=== PATIENT | female | born 1950 | race Two or more races ===

== ENCOUNTER 2020-05-19 12:49 | Outpatient (REF) | payer OTHER, SELFPAY | END 2020-05-19 12:50 | disposition home or self-care (01) | LOC: HO.LAB 12:49 | PROVIDERS: PCP Internal Medicine; Visit Provider Internal Medicine | DX: Z20.822 Contact with and (suspected) exposure to COVID-19 (principal) | CPT/HCPCS: 36415; C9803; U0003 ==

== ENCOUNTER 2020-06-09 11:07 | Outpatient (REF) | payer OTHER, SELFPAY | END 2020-06-09 11:08 | disposition home or self-care (01) | LOC: HO.LAB 11:07 | PROVIDERS: Visit Provider Internal Medicine | DX: Z20.822 Contact with and (suspected) exposure to COVID-19 (principal) | CPT/HCPCS: 36415; C9803; U0003; U0005 ==

== ENCOUNTER → 2020-06-10 08:21 | Outpatient (BNVA) | payer OTHER, SELFPAY | PROVIDERS: PCP Internal Medicine; Visit Provider Internal Medicine Endocrinology, Diabetes & Metabolism | DX: Z76.89 Persons encountering health services in other specified circumstances (principal) | CPT/HCPCS: Q3014 ==

== ENCOUNTER 2020-06-12 09:35 | Outpatient (REF) | payer OTHER, SELFPAY ==
[2020-06-12 10:27] LABS: Estimated Average Glucose 137 mg/dL; Hemoglobin A1c % 6.4 %
[2020-06-12 10:57] LABS: Alanine Aminotransferase 133 U/L (0-31); Alkaline Phosphatase 90 U/L (39-117); Anion Gap 15 (12-20); Aspartate Amino Transferase 95 U/L (5-31); Bilirubin Total 0.4 mg/dL (0.0-1.0); Blood Urea Nitrogen 13 mg/dL (9-16); Calcium 9.3 mg/dL (8.4-10.2); Carbon Dioxide 29 mmol/L (22-29); Chloride 101 mmol/L (96-108); Cholesterol 149 mg/dL; Estimated Glomerular Filt Rate > 60; Glucose Fasting 101 mg/dL (60-99); HDL Cholesterol 49 mg/dL; LDL Cholesterol Calculated 80 mg/dl; Potassium 4.5 mmol/L (3.3-5.1); Sodium 140 mmol/L (135-145); Total Protein 7.8 g/dL (6.5-8.0); Triglycerides 103 mg/dL
[2020-06-12 10:59] LABS: Creatinine Urine 112.18 mg/dL
[2020-06-12 11:05] LABS: Vitamin D 25-OH Total 47.7 ng/mL (>30)
[2020-06-12 11:31] LABS: Vitamin B12 753 pg/mL (200-900)
[2020-06-13 05:43] LABS: LDL Cholesterol Direct 78 mg/dL (<100)
[2020-06-18 05:32] LABS: Aldolase 8.4 U/L (<=8.1)
== END 2020-06-12 09:36 | disposition home or self-care (01) ==
LOC: HO.LAB 09:35
PROVIDERS: PCP Internal Medicine; Visit Provider Internal Medicine Endocrinology, Diabetes & Metabolism
DX: R74.8 Abnormal levels of other serum enzymes (principal); E11.9 Type 2 diabetes mellitus without complications; M85.80 Other specified disorders of bone density and structure, unspecified site
CPT/HCPCS: 36415; 80053; 80061; 82043; 82085; 82306; 82550; 82607; 83036; 83721

== ENCOUNTER → 2020-06-20 12:43 | Outpatient (BNVA) | payer MEDICARE, SELFPAY | PROVIDERS: PCP Internal Medicine; Visit Provider Nurse Practitioner | DX: Z76.89 Persons encountering health services in other specified circumstances (principal) | CPT/HCPCS: Q3014 ==

== ENCOUNTER 2020-07-02 08:41 | Outpatient (REF) | payer MEDICARE, SELFPAY ==
--- NOTE | ~2020-07-02 | US_ITS ---
EXAMINATION: US ABDOMEN COMPLETE CLINICAL INFORMATION: Abnormal liver function tests. COMPARISON: Previous CT of the abdomen and pelvis August 2018 and abdominal ultrasound February 2009 TECHNIQUE: Real-time imaging of the abdominal viscera. FINDINGS: PANCREAS: Normal. ABDOMINAL AORTA: The proximal, mid, and distal segments are normal in caliber. INFERIOR VENA CAVA: Visualized portions are normal. LIVER: Liver echotexture is increased. The liver is normal in size. The liver contour is normal. No focal hepatic lesion. There is no intrahepatic biliary duct dilatation seen. GALLBLADDER: Upper normal in size. No gallstones. Normal gallbladder wall. COMMON BILE DUCT: Normal in caliber measuring 0.6 cm in diameter. RIGHT KIDNEY: Normal. No hydronephrosis. No renal calculi or focal parenchymal lesions. The kidney measures 12.4 cm in maximum dimension. LEFT KIDNEY: Normal. No hydronephrosis. No renal calculi or focal parenchymal lesions. The kidney measures 11.8 cm in maximum dimension. SPLEEN: Normal. The spleen measures 9.1 cm in maximum dimension. FREE FLUID: None. US/US abdomen complete IMPRESSION: Echogenic liver probably representing fatty infiltration.
== END 2020-07-02 08:42 | disposition home or self-care (01) ==
LOC: HO.US 08:41
PROVIDERS: Visit Provider Nurse Practitioner
DX: R74.8 Abnormal levels of other serum enzymes (principal)
CPT/HCPCS: 76700

== ENCOUNTER 2020-07-08 15:56 | Outpatient (REF) | payer MEDICARE, SELFPAY ==
[2020-07-08 17:05] LABS: MANUAL DIFF FLAG NO
[2020-07-08 17:15] LABS: Basophils Percent Auto 0.4 % (0-2); Eosinophils Absolute Auto 0.4 X10*3/uL (0.0-0.4); Hematocrit 40.2 % (37-47); Hemoglobin 12.5 g/dl (12.0-16.0); Imm Gran Abs Auto 0.02 X10*3/uL (0.00-0.03); Imm Gran Pct Auto 0.3 % (0.0-0.4); Lymphocytes Absolute Auto 3.3 X10*3/uL (1.2-4.9); Mean Corpuscular HGB Conc 31.1 g/dl (31.0-35.0); Mean Corpuscular Hemoglobin 27.6 pg (27.0-33.0); Mean Corpuscular Volume 88.7 fL (80-98); Mean Platelet Volume 11.2 fL (9.4-12.3); Monocytes Absolute Auto 0.8 X10*3/uL (0.1-1.2); Monocytes Percent Auto 10.4 % (2-11); Neutrophils Absolute Auto 3.3 X10*3/uL (2.0-8.3); Neutrophils Percent Auto 41.9 % (45-73); Platelet Count 261 X10*3/uL (160-400); Red Blood Count 4.53 X10*6/uL (4.20-5.50); Red Cell Distribution Width 15.9 % (11.0-16.0); White Blood Count 7.8 X10*3/uL (4.8-10.8)
[2020-07-08 17:57] LABS: Alanine Aminotransferase 79 U/L (0-31); Albumin Level 4.3 g/dL (3.5-5.0); Alkaline Phosphatase 118 U/L (39-117); Anion Gap 14 (12-20); Aspartate Amino Transferase 60 U/L (5-31); Bilirubin Total 0.4 mg/dL (0.0-1.0); Blood Urea Nitrogen 14 mg/dL (9-16); C Reactive Protein 0.36 mg/dL (< or = 0.50); Calcium 9.5 mg/dL (8.4-10.2); Carbon Dioxide 28 mmol/L (22-29); Chloride 102 mmol/L (96-108); Estimated Glomerular Filt Rate > 60; Glucose Random 91 mg/dL (60-115); Lactate Dehydrogenase 247 U/L (122-220); Potassium 3.8 mmol/L (3.3-5.1); Sodium 140 mmol/L (135-145); Total Protein 8.1 g/dL (6.5-8.0)
[2020-07-08 18:17] LABS: Erythrocyte Sedimentation Rate 22 MM/HR (0-20)
[2020-07-19 21:51] LABS: EJ Autoantibodies NOT DETECTED (NOT DETECTED); JO-1 Antibody <1.0 NEG AI (<1.0 NEG); MI 2 Autoantibodies NOT DETECTED (NOT DETECTED); OJ Autoantibodies NOT DETECTED (NOT DETECTED); PL 12 Autoantibodies NOT DETECTED (NOT DETECTED); PL 7 Autoantibodies NOT DETECTED (NOT DETECTED)
== END 2020-07-08 15:57 | disposition home or self-care (01) ==
LOC: HO.LAB 15:56
PROVIDERS: PCP Internal Medicine; Visit Provider Student in an Organized Health Care Education/Training Program
DX: R74.8 Abnormal levels of other serum enzymes (principal)
CPT/HCPCS: 36415; 80053; 82550; 83615; 85025; 85652; 86140; 99212

== ENCOUNTER → 2020-07-17 14:10 | Outpatient (BNVA) | payer MEDICARE, SELFPAY | PROVIDERS: PCP Internal Medicine; Visit Provider Student in an Organized Health Care Education/Training Program | DX: R74.9 Abnormal serum enzyme level, unspecified (principal); Z79.899 Other long term (current) drug therapy | CPT/HCPCS: 99212 ==

== ENCOUNTER → 2020-07-22 13:42 | Outpatient (BNVA) | payer MEDICARE, SELFPAY | PROVIDERS: PCP Internal Medicine; Visit Provider Nurse Practitioner | DX: R10.13 Epigastric pain (principal); R14.0 Abdominal distension (gaseous); K58.0 Irritable bowel syndrome with diarrhea; K21.9 Gastro-esophageal reflux disease without esophagitis; R74.8 Abnormal levels of other serum enzymes | CPT/HCPCS: Q3014 ==

== ENCOUNTER → 2020-07-31 13:57 | Outpatient (BNVA) | payer MEDICARE, SELFPAY | PROVIDERS: PCP Internal Medicine; Visit Provider Surgery | DX: M62.81 Muscle weakness (generalized) (principal) | CPT/HCPCS: 99202 ==

== ENCOUNTER 2020-08-08 07:01 | Day surgery (SDC) | payer MEDICARE, SELFPAY ==
--- NOTE | 2020-08-07 09:51 | HO.ANESPROP2 ---
Documented by User: Maday Hernandezney 08/07/20 09:53 HPI - Anesthesia Eval Consult details Narrative: 70yo F for Left Thigh Muscle Biopsy prn Opioids PMFSH Active Problems Active Problems: All Active Problems (Updated 07/31/20 @ 14:28 by Akshat Arias MD) Muscle weakness (Acute) Elevated aldolase level (Acute) Abdominal bloating (Acute) Epigastric pain (Acute) Irritable bowel syndrome with diarrhea (Acute) Abdominal bloating (Acute) GERD (gastroesophageal reflux disease) (Acute) Abnormal liver enzymes (Acute) Dyslipidemia (Acute) Elevated CPK (Acute) Osteopenia (Acute) Diabetic 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 associated with type 2 diabetes mellitus (Acute) 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 (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) Diabetes type 2, controlled (Acute) Lab test positive for detection of COVID-19 virus (Acute) Urge urinary incontinence (Acute) Moderate asthma (Acute) Vertigo (Acute) Polyarthralgia (Acute) Depression with anxiety (Acute) Essential hypertension (Acute) Diabetes mellitus (Acute) Past Medical History Medical History Abnormal liver enzymes Depression with anxiety Diabetes mellitus Diabetes type 2, controlled Diabetic 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 associated with type 2 diabetes mellitus Dyslipidemia Elevated CPK Essential hypertension Lab test positive for detection of COVID-19 virus longterm (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 Moderate asthma Muscle weakness Osteopenia Polyarthralgia Urge urinary incontinence Vertigo Family History Family History Father Hypertension Mother Cancer Sister Breast cancer Surgical History Surgical History History of esophagogastroduodenoscopy (EGD) History of tubal ligation Hx of colonoscopy S/P SHERRY-BSO (total abdominal hysterectomy and bilateral salpingo-oophorectomy) Social History Social History Alcohol intake: current Alcohol intake frequency: does not drink Smoking Status: Never smoker Use of substances other than those prescribed or required for medical reasons: No Advance Directives: No Advance Directives Information Provided: Yes Meds Allergies Allergy/AdvReac Type Severity Reaction Status Date / Time No Known Allergies Allergy Verified 08/08/20 07:18 [No Known Allergies*] Home Medications Medication Instructions Recorded Confirmed Last Taken Type acetaminophen 300 mg-codeine 30 mg 1 tab PO Q8H PRN 04/10/20 07/31/20 Unknown History tablet aspirin 81 mg tablet,delayed 81 mg PO DAILY 04/10/20 07/31/20 Unknown History release pregabalin 100 mg capsule 100 mg PO BID 04/10/20 07/31/20 Unknown History venlafaxine 150 mg tablet,extended 150 mg PO DAILY 04/10/20 07/31/20 Unknown History release 24 hr blood sugar diagnostic #10 ea 06/10/20 07/31/20 Unknown History hydroxyzine HCl 10 mg tablet 10 mg PO TID PRN 06/10/20 07/31/20 Unknown History [id number] 1 cap PO TID 07/08/20 07/31/20 Unknown History 24,000-76,000-120,000 unit capsule,delayed rel trazodone 50 mg tablet 25 mg PO BEDTIME PRN 07/08/20 07/31/20 Unknown History Exam Exam Date and Time: August 07, 2020 0951 Pertinent Lab Results Pertinent Lab Results: Laboratory Tests 07/08/20 07/08/20 16:58 16:58 WBC 7.8 Hgb 12.5 Hct 40.2 Plt Count 261 Sodium 140 Potassium 3.8 Chloride 102 Carbon Dioxide 28 BUN 14 Creatinine 0.73 Assessment and Plan Assessment Anesthesia Assessment: Chart Reviewed Documented by User: Shani Lees 08/08/20 07:49 [facility] Past Medical History Medical History Abnormal liver enzymes Depression with anxiety Diabetes mellitus Diabetes type 2, controlled Diabetic 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 associated with type 2 diabetes mellitus Dyslipidemia Elevated CPK Essential hypertension Lab test positive for detection of COVID-19 virus 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 Moderate asthma Muscle weakness Osteopenia Polyarthralgia Urge urinary incontinence Vertigo Family History Family History Father Hypertension Mother Cancer Sister Breast cancer Surgical History Surgical History History of esophagogastroduodenoscopy (EGD) History of tubal ligation Hx of colonoscopy S/P SHERRY-BSO (total abdominal hysterectomy and bilateral salpingo-oophorectomy) Social History Social History Alcohol intake: current Alcohol intake frequency: does not drink Smoking Status: Never smoker Use of substances other than those prescribed or required for medical reasons: No Advance Directives: No Advance Directives Information Provided: Yes Meds Allergies Allergy/AdvReac Type Severity Reaction Status Date / Time No Known Allergies Allergy Verified 08/08/20 07:18 [No Known Allergies*] Home Medications Medication Instructions Recorded Confirmed Last Taken Type acetaminophen 300 mg-codeine 30 mg 1 tab PO Q8H PRN 04/10/20 07/31/20 Unknown History tablet aspirin 81 mg tablet,delayed 81 mg PO DAILY 04/10/20 07/31/20 Unknown History release pregabalin 100 mg capsule 100 mg PO BID 04/10/20 07/31/20 Unknown History venlafaxine 150 mg tablet,extended 150 mg PO DAILY 04/10/20 07/31/20 Unknown History release 24 hr blood sugar diagnostic #10 ea 06/10/20 07/31/20 Unknown History hydroxyzine HCl 10 mg tablet 10 mg PO TID PRN 06/10/20 07/31/20 Unknown History [id number] 1 cap PO TID 07/08/20 07/31/20 Unknown History 24,000-76,000-120,000 unit capsule,delayed rel trazodone 50 mg tablet 25 mg PO BEDTIME PRN 07/08/20 07/31/20 Unknown History Exam Airway Mallampati Class: II TM Dist: >3cm Neck ROM: Full Assessment and Plan Assessment Anesthesia Assessment: Anesthesia Plan Discussed and Chart Reviewed Final Anesthetic Review NPO: Yes ASA Class: III Final Preanesthetic Review: No Changes in Pt Med Stat, Meds/Allgs Chart Reviewed, Consent Obtained/Reviewed and Anes Risks/Benef Reviewed Patient Risk: Intermediate Procedure Risk: Low Assessment/Block/Sedation in SS: Assess/Block/Sedation-SS Anesthetic Plan Anesthetic Plan: MAC: Disposition: Standard PACU
[2020-08-08 07:19] VITALS: BP 137/89; PULSE 80; RESP 16; TEMP 36.2; O2SAT 95; BMI 30.8
[2020-08-08] MEDS: Lactated Ringers 1,000 ML 100 ML IVCONT (07:40)
[2020-08-08 08:14] LABS: Glucose, Whole Blood 99 mg/dL (60-115)
[2020-08-08 08:48] VITALS: BP 137/73; PULSE 76; RESP 16; TEMP 36.9; O2SAT 93
--- NOTE | 2020-08-08 08:50 | PM.OP ---
Brief Operative Note Date of Service: 08/08/20 Pre-op diagnosis: muscle weakness, rule out myositis Post-op diagnosis: same Procedure: biopsy of left quadriceps muscle Surgeon: Akshat Arias MD Anesthesia: MAC Estimated blood loss (mL): 5 Pathology: other (muscle biopsy) Condition: stable Disposition: PACU
--- NOTE | 2020-08-08 08:56 | P.OP_ITS ---
Operative Note Operative Note Date of Service: 08/08/20 Narrative: Preop diagnosis: Progressive muscle weakness Postop diagnosis: Progressive muscle weakness Procedure: Muscle biopsy, left quadriceps muscle Surgeon: Akshat Arias MD The patient is a 70-year-old female female referred by the neurologist because of progressive muscle weakness. A left quadriceps muscle muscle biopsy had been requested. The patient understood the technique of the procedure as well as the risks, benefits, and alternatives. She was brought to the operating room placed in supine position under monitored anesthesia care. The anterior left thigh was prepped and draped in the usual sterile fashion. A surgical time-out was done. The patient received cefazolin 2 g IV preoperatively. I marked the planned line of incision and infiltrated this with lidocaine 1%. I made a transverse incision on the skin using blade 15. This was carried out to the full-thickness skin and subcutaneous fat using electrocautery. The fascia was identified. This was incised with electrocautery. Muscle fibers of the quadriceps were then identified. I isolated a 1.5 cm long group of muscle fibers using a hemostat. I divided this proximally and distall with Metzenbaum scissors. This was then attached to a muscle clamp biopsy. I cauterized the edges of the divided muscle. I closed the fascia with simple interrupted Dexon 2-0 sutures. Irrigation was done. I reapposed the subcutaneous layer with De xon 3-0 interrupted sutures. Skin closure was achieved with Dexon 4-0 subcuticular running stitch. The incision was infiltrated with Marcaine 0.5% for postop anesthesia. Steri-Strips and dressings were applied. The procedure was then completed The patient tolerated the procedure well. There were no complications noted. Initial and final counts of sponges and instruments were correct. Estimated blood loss was about 5 cc. Patient was then awakened and transferred to the recovery room with stable vital signs.
[2020-08-08 09:03] VITALS: BP 137/73; PULSE 76; RESP 16; TEMP 36.9; O2SAT 95
== END 2020-08-08 09:46 | disposition home or self-care (01) ==
PROVIDERS: PCP Internal Medicine; Visit Provider Surgery
PROC: (CPT 20205; principal; 2020-08-08 08:40)
DX: M62.81 Muscle weakness (generalized) (principal); I10 Essential (primary) hypertension; M85.80 Other specified disorders of bone density and structure, unspecified site; J45.909 Unspecified asthma, uncomplicated; E11.42 Type 2 diabetes mellitus with diabetic 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; Z79.4 Long term (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; Z79.51 Long term (current) use of inhaled steroids; Z79.82 Long term (current) use of aspirin; Z79.899 Other long term (current) drug therapy; Z86.16 Personal history of COVID-19
CPT/HCPCS: 20205; 82947; 88300; 88305; 88313; 88319; 88341; 88342; 88348; J0690; J2405; J3010

== ENCOUNTER → 2020-08-20 14:17 | Outpatient (BNVA) | payer MEDICARE, SELFPAY | PROVIDERS: PCP Internal Medicine; Visit Provider Surgery | DX: M62.81 Muscle weakness (generalized) (principal) | CPT/HCPCS: 99212 ==

== ENCOUNTER → 2020-09-03 10:11 | Outpatient (BNVA) | payer MEDICARE, SELFPAY | PROVIDERS: PCP Internal Medicine; Visit Provider Student in an Organized Health Care Education/Training Program | DX: R74.8 Abnormal levels of other serum enzymes (principal); E11.42 Type 2 diabetes mellitus with diabetic 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 | CPT/HCPCS: 99212 ==

== ENCOUNTER → 2020-10-03 07:39 | Outpatient (REF) | payer MEDICARE, SELFPAY ==
--- NOTE | ~2020-10-03 | NM_ITS ---
Myocardial perfusion study Indication: Chest pain to evaluate for myocardial ischemia Technique: The patient was brought in for a Lexiscan perfusion study on 10/03/2020. Patient performed low-level exercise and was injected 0.4 mg of Lexiscan intravenously. Within a minute of injection, 25 mCi of sestamibi was given intravenously. Images were obtained using the SPECT gamma camera interlaced with the gating device. Images were obtained in supine position. Resting perfusion study was performed on 10/07/2020. Patient was administered 25 mCi of sestamibi intravenously at rest. Images were then obtained in supine position. Images obtained with and without CT attenuation. Total DLP 52 mGy-cm. Images were processed with the software and compared side to side in short axis, horizontal long axis and vertical long axis views. Findings: Both stress and rest perfusion imaging was suboptimal due to intense hepatic activity interfering with inferior wall uptake The stress perfusion study showed non attenuated images show minimal thinning of the anterolateral wall of the LV myocardium. Remainder of the LV myocardium is normally perfused. Attenuation corrected images show minimally reduced uptake in the apex of the LV myocardium.. The gated study shows normal LV systolic function with calculated LVEF of 70%. LV cavity is normal size. The gated study shows normal systolic wall thickening and contraction of segments. Resting study shows non attenuated images show mildly reduced uptake in the basal anterolateral and lateral wall of the LV myocardium. Attenuation corrected images show mildly reduced uptake in the septum and moderately reduced uptake in the apex of the LV myocardium.. Gating at rest reveals normal systolic wall motion with ejection fraction at 67%. The findings are consistent with no clear reversible defect, non attenuated images, show normal perfusion in most of the myocardium.. NM/NM marj perf SPECT rest & str Impression: 1. Myocardial perfusion imaging study shows likely normal myocardial perfusion 2. Gated LVEF is 70% 3. Transient ischemic dilatation not present EKG is nondiagnostic for ischemia
--- NOTE | 2020-10-03 08:00 | CA_ITS ---
Acquisition Time: 2020-10-03 07:58:28 Total Exercise Time: 00:02:00 Test Indications: cp, sob Medications: see chart Protocol: LEXISCAN Max HR: 106 BPM 70% of Pred: 151 BPM Max BP: 120/070 mmHG Max Work Load: 1.0 METS Pharmacological stress test with Lexiscan injection, with sitting and kicking her leg, without anginal symptoms, without arrythmia, with normotensive response to injection, with nondiagnostic EKG for ischemia. Nuclear images pending. Test reviewed with Dr Ye. Referred By: Isaías Monroe Overread By: REGINA MAC
== END ==
LOC: HO.CARD 07:39
PROVIDERS: PCP Internal Medicine; Visit Provider Internal Medicine Cardiovascular Disease
DX: R07.89 Other chest pain (principal); R06.02 Shortness of breath
CPT/HCPCS: 78452; 93016; 93017; 93018; A9500; J0280; J2785

== ENCOUNTER 2020-10-04 21:23 | Emergency (ER) | payer MEDICARE, SELFPAY ==
--- NOTE | ~2020-10-04 | XR_ITS ---
EXAMINATION: XR HAND, LEFT CLINICAL INFORMATION: Laceration. COMPARISON: Left hand radiographs dated 07/11/2017. TECHNIQUE: PA, lateral, and oblique views of the left hand. FINDINGS: No acute fracture or dislocation. No significant joint space narrowing or marginal osteophytes. No osseous erosion. No abnormal soft tissue calcification. No radiopaque foreign body. XR/XR hand LT min 3V IMPRESSION: Unremarkable examination.
[2020-10-04 21:27] VITALS: BP 150/84; PULSE 81; RESP 18; TEMP 36.3; O2SAT 96; BMI 30.9
--- NOTE | 2020-10-04 22:40 | ED_ITS ---
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 Patient was cutting chicken sustained a puncture wound to her left hand at the base of the left thumb, patient said just the tip of the knife penetrate the skin but did not go through through. Patient is able to move all 5 fingers, no numbness or tingling. Patient do not remember her last tetanus shot. Related Data Home Medications Medication Instructions Recorded Confirmed aspirin 81 mg tablet,delayed 81 mg PO DAILY 04/10/20 08/11/20 release venlafaxine 150 mg tablet,extended 150 mg PO DAILY 04/10/20 08/11/20 release 24 hr blood sugar diagnostic #10 ea 06/10/20 08/11/20 hydroxyzine HCl 10 mg tablet 10 mg PO TID PRN 06/10/20 08/11/20 [id number]-[id number] 1 cap PO TID 07/08/20 08/11/20 24,000-76,000-120,000 unit capsule,delayed rel trazodone 50 mg tablet 25 mg PO BEDTIME PRN 07/08/20 08/11/20 Previous Rx's Medication Instructions Recorded albuterol sulfate 2.5 mg INHALATION TID 30 Days #270 03/18/20 ml alcohol swabs 1 pad TOPICAL QID #100 ea 03/18/20 hydrocortisone 2.5 % topical cream 1 applic TOPICAL DAILY PRN 30 Days 03/18/20 #20 g oxybutynin chloride 10 mg 10 mg PO DAILY 90 Days #90 tab 04/10/20 tablet,extended release 24 hr fluticasone propionate 220 1 puff PO BID 90 Days #12 g 04/24/20 mcg/actuation HFA aerosol inhaler calcium carbonate 600 mg calcium 600 mg PO BID 30 Days #60 tab 06/04/20 (1,500 mg) tablet dulaglutide 1.5 mg/0.5 mL 1.5 mg SUBCUT QWEEK 30 Days #2.5 ml 06/10/20 subcutaneous pen injector empagliflozin 12.5 mg-metformin 1 tab PO BID 30 Days #60 tab 06/10/20 1,000 mg tablet lancets 28 gauge #100 ea 06/10/20 pen needle, diabetic 32 gauge x #50 ea 06/10/20 Lantus Solostar U-100 Insulin 100 7 unit SUBCUT DAILY 30 Days #3 ml 06/11/20 unit/mL (3 mL) subcutaneous pen NS meclizine 12.5 mg tablet 25 mg PO DAILY PRN #60 tab 06/15/20 dicyclomine 20 mg tablet 20 mg PO TID 30 Days #90 tab 06/20/20 methylcellulose (laxative) 500 mg 1,000 mg PO DAILY 30 Days #60 tab 06/20/20 tablet pantoprazole 40 mg tablet,delayed 40 mg PO DAILY 30 Days #30 tab 06/20/20 release simethicone 180 mg capsule 180 mg PO TID 30 Days #90 cap 06/20/20 sucralfate 1 gram tablet 2 g PO .daily' 30 Days #60 tab 06/20/20 montelukast 10 mg tablet 10 mg PO DAILY #90 tab 07/07/20 amlodipine 5 mg tablet 5 mg PO DAILY #90 tab 08/11/20 blood sugar diagnostic #100 ea 08/11/20 lisinopril 30 mg tablet 30 mg PO DAILY 90 Days #90 tab 08/11/20 tramadol 50 mg tablet 50 mg PO BID PRN 30 Days #60 tab 08/11/20 acetaminophen 650 mg 650 mg PO Q8H PRN #90 tab 08/19/20 tablet,extended release pregabalin 100 mg capsule 100 mg PO BID #60 cap 09/03/20 Allergies Allergy/AdvReac Type Severity Reaction Status Date / Time No Known Allergies Allergy Verified 09/03/20 10:15 [No Known Allergies*] Review of Systems Review of Systems: All other systems are reviewed and are negative Constitutional: Reports as per HPI and Reports no additional constitutional complaints Eyes: Reports as per HPI and Reports no additional eye complaints Reports system reviewed and no additional complaints, except as documented Cardiovascular: Reports as per HPI and Reports no additional cardiovascular complaints Respiratory: Reports as per HPI and Reports no additional respiratory complaints Gastrointestinal: Reports as per HPI and Reports no additional gastrointestinal complaints Genitourinary: Reports no additional female genitourinary complaints Musculoskeletal: Reports no additional musculoskeletal complaints Skin/Breast: Reports system reviewed and no additional complaints, except as docu Psychiatric: Reports no additional psychiatric complaints Endocrine: Reports no additional endocrine complaints Hematologic/Lymphatic: Reports no additional hematologic/lymphatic complaints Allergic/Immunologic: Reports no additional allergic/immunologic complaints Reports system reviewed and no additional complaints, except as documented and Reports Abnormal speech present [facility] Past Medical History Medical History Abnormal liver enzymes Depression with anxiety Diabetes mellitus Diabetes type 2, controlled Diabetic 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 associated with type 2 diabetes mellitus Dyslipidemia Elevated CPK Essential hypertension Lab test positive for detection of COVID-19 virus assisted (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 Moderate asthma Muscle weakness Osteopenia Polyarthralgia Urge urinary incontinence Vertigo Surgical History History of esophagogastroduodenoscopy (EGD) History of tubal ligation Hx of colonoscopy S/P SHERRY-BSO (total abdominal hysterectomy and bilateral salpingo-oophorectomy) Family History Family History Father Hypertension Mother Cancer Sister Breast cancer Social History Social History Household Members: Significant Other Housing: House Alcohol intake: never Advance Directives: No Advance Directives Information Provided: Yes Physical Exam Vital Signs: Vital Signs: Last Vital Signs Temp 97.3 F 10/04/20 21: Pulse 81 10/04/20 21:27 Resp 18 10/04/20 21:27 BP 150/84 H 10/04/20 21: Pulse Ox 96 10/04/20 21:27 Body Mass Index 30.9 Vital signs have been reviewed as appeared to be correct. Blood pressure normal. Heart rate normal. Respiration rate normal. Temperature normal. Oxygen saturation normal. Appearance: Alert. Oriented X3. No acute distress. Head: Normal external exam. Normocephalic. Atraumatic. No Bolton signs noted. No raccoon eyes noted Eyes: PERRLA. EOMI. Conjunctiva and sclera normal. Eyelids normal. ENT: TM's Normal. Pharynx normal. Uvula midline. Moist mucous membranes. No trismus noted. No drooling noted. No muffled voice noted. Neck: Normal inspection. Neck supple. FROM. No adenopathy. Thyroid Normal. No meningeal signs. No neck mass noted. CVS: Normal heart rate and rhythm. Heart sound normal. No murmurs noted. Pulses normal throughout. Respiratory: No respiratory distress. Painless inspiration. Breath sounds normal. No wheezes/rales/rhonchi noted. Chest nontender. No accessory muscle usage noted or decreased air movement noted. Abdomen: Soft and nontender. Bowel sounds normal in all 4 quadrants. No distention noted. No organomegaly noted. No visible injury noted. Back: No CVA tenderness. Full range of motion noted. Skin: Skin warm and dry. Normal skin color. Normal skin turgor. No rashes/lesions/lacerations noted. Extremities: 3 cm laceration at the dorsum surface of left hand at the base of the left thumb. With mild bleeding that was controlled with pressure in the emergency department. Patient is able to do full extension and flexion to all 5 fingers, intact sensation to whole entire hand Neuro: Oriented X 3. No motor deficit. No sensory deficit. Reflexes normal. Course Course Course Narrative: 70-year-old female sustained a left hand laceration. Will give a booster dose of the tetanus shot. Procedures Laceration Laceration 1: Site: hand Side (If applicable): left Size (cm): 3 Description: linear Depth: simple, single layer Local Anesthetic: lidocaine 1% Amount of anesthesia used (mL): 3 Pre-repair: wound explored Skin layer closed with: nylon Size (cm): 4-0 Number of sutures: 2 Technique: simple, interrupted MDM - Extremity (Nontraumatic) Imaging Data Left hand x-ray: Radiologist's impression: Unremarkable examination. Discharge Plan Discharge Clinical Impression: Laceration of hand Qualifiers: Encounter type: initial encounter Foreign body presence: without foreign body Laterality: left Qualified Code(s): S61.412A - Laceration without foreign body of left hand, initial encounter Patient Disposition: Home, Self-Care Instructions: Laceration (ED) Additional Instructions: Suture removal in 5-7 days either come back to the emergency department or see your PCP. Prescriptions: No Action alcohol swabs [Alcohol Prep Pads] Pads, Medicated 1 pad topical QID Qty: 100 RF: 0 hydrocortisone 2.5 % cream 1 applic topical DAILY PRN (Reason: rash) 30 Days Qty: 20 RF: 0 albuterol sulfate 2.5 mg /3 mL (0.083 %) solution for nebulization 2.5 mg inhalation TID 30 Days Qty: 270 RF: 0 fluticasone propionate [Flovent HFA] 220 mcg/actuation HFA aerosol inhaler 1 puff PO BID 90 Days Qty: 12 RF: 6 calcium carbonate 600 mg calcium (1,500 mg) tablet 600 mg PO BID 30 Days Qty: 60 RF: 11 Lantus Solostar U-100 Insulin 100 unit/mL (3 mL) insulin pen 7 unit subcut DAILY 30 Days Qty: 3 RF: 6 meclizine 12.5 mg tablet 25 mg PO DAILY PRN (Reason: dizziness) Qty: 60 RF: 3 montelukast 10 mg tablet 10 mg PO DAILY Qty: 90 RF: 3 acetaminophen [Mapap Arthritis Pain] 650 mg tablet extended release 650 mg PO Q8H PRN (Reason: pain) Qty: 90 RF: 3 venlafaxine 150 mg tablet extended release 24hr 150 mg PO DAILY RF: 0 aspirin 81 mg tablet,delayed release (DR/EC) 81 mg PO DAILY RF: 0 oxybutynin chloride 10 mg tablet extended release 24hr 10 mg PO DAILY 90 Days Qty: 90 RF: 2 hydroxyzine HCl 10 mg tablet 10 mg PO TID PRNRF: 0 tramadol 50 mg tablet 50 mg PO BID PRN (Reason: pain) 30 Days Qty: 60 RF: 0 lisinopril 30 mg tablet 30 mg PO DAILY 90 Days Qty: 90 RF: 1 amlodipine 5 mg tablet 5 mg PO DAILY Qty: 90 RF: 1 (DME) FreeStyle Lite Strips Strip See Rx Instructions .ROUTE .MEDSUPPLY Qty: 100 RF: 11 (DME) FreeStyle Lite Strips Strip See Rx Instructions .ROUTE .MEDSUPPLY Qty: 10 RF: 0 dulaglutide 1.5 mg/0.5 mL pen injector 1.5 mg subcut QWEEK 30 Days Qty: 2.5 RF: 6 Synjardy 12.5-1,000 mg tablet 1 tab PO BID 30 Days Qty: 60 RF: 6 (DME) lancets [FreeStyle Lancets] 28 gauge misc See Rx Instructions .ROUTE .MEDSUPPLY Qty: 100 RF: 11 (DME) pen needle, diabetic [BD Ultra-Fine Guerda Pen Needle] 32 gauge x 5/32 needle See Rx Instructions .ROUTE .MEDSUPPLY Qty: 50 RF: 11 pantoprazole 40 mg tablet,delayed release (DR/EC) 40 mg PO DAILY 30 Days Qty: 30 RF: 6 sucralfate [Carafate] 1 gram tablet 2 g PO .daily' 30 Days Qty: 60 RF: 6 simethicone 180 mg capsule 180 mg PO TID 30 Days Qty: 90 RF: 3 dicyclomine 20 mg tablet 20 mg PO TID 30 Days Qty: 90 RF: 6 Citrucel 500 mg tablet 1,000 mg PO DAILY 30 Days Qty: 60 RF: 6 Creon 24,000-76,000 -120,000 unit capsule,delayed release(DR/EC) 1 cap PO TID RF: 0 trazodone 50 mg tablet 25 mg PO BEDTIME PRNRF: 0 pregabalin 100 mg capsule 100 mg PO BID Qty: 60 RF: 5 Referrals: Ange Thomason MD [Primary Care Provider] - 1 week
[2020-10-04] MEDS: Diphth,Pertus(ACell),Tet Adult 0.5 ML SYRINGE IM (22:54)
[2020-10-04] MEDS: Lidocaine HCl 1 % MPF 5 ML VIAL SUBCUT (22:55)
== END 2020-10-04 22:59 | disposition home or self-care (01) ==
PROVIDERS: Emergency Provider Emergency Medicine; PCP Internal Medicine
DX: S61.412A Laceration without foreign body of left hand, initial encounter (principal); W26.0XXA Contact with knife, initial encounter; Y93.G1 Activity, food preparation and clean up; Y92.010 Kitchen of single-family (private) house as the place of occurrence of the external cause; Y99.9 Unspecified external cause status
CPT/HCPCS: 12002; 73130; 90471; 90715; 99283; 99284

== ENCOUNTER 2020-11-13 10:03 | Outpatient (REF) | payer MEDICARE, SELFPAY ==
[2020-11-13 12:00] LABS: Alanine Aminotransferase 53 U/L (0-31); Albumin Level 4.3 g/dL (3.5-5.0); Alkaline Phosphatase 109 U/L (39-117); Anion Gap 15 (12-20); Aspartate Amino Transferase 40 U/L (5-31); Bilirubin Total 0.3 mg/dL (0.0-1.0); Blood Urea Nitrogen 16 mg/dL (9-16); Calcium 10.6 mg/dL (8.4-10.2); Carbon Dioxide 26 mmol/L (22-29); Chloride 104 mmol/L (96-108); Cholesterol 172 mg/dL; Estimated Glomerular Filt Rate > 60; Glucose Random 77 mg/dL (60-115); HDL Cholesterol 53 mg/dL; LDL Cholesterol Calculated 100 mg/dl; Potassium 4.7 mmol/L (3.3-5.1); Sodium 140 mmol/L (135-145); Total Protein 8.2 g/dL (6.5-8.0); Triglycerides 97 mg/dL
[2020-11-13 12:23] LABS: Free T4 (Free Thyroxine) 0.91 ng/dL (0.71-1.85); Thyroid Stimulating Hormone 0.85 uIU/mL (0.32-4.0)
[2020-11-13 12:24] LABS: Vitamin B12 458 pg/mL (200-900)
[2020-11-13 13:37] LABS: Creatinine Urine 75.47 mg/dL; Microalbum/Creatinine Ratio Ur 10.6 ug/mg cr
[2020-11-14 07:56] LABS: LDL Cholesterol Direct 98 mg/dL (<100)
== END 2020-11-13 10:04 | disposition home or self-care (01) ==
LOC: HO.LAB 10:03
PROVIDERS: PCP Internal Medicine; Visit Provider Internal Medicine Endocrinology, Diabetes & Metabolism
DX: E11.42 Type 2 diabetes mellitus with diabetic 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 (principal); M85.88 Other specified disorders of bone density and structure, other site; E78.5 Hyperlipidemia, unspecified; I10 Essential (primary) hypertension; Z79.4 Long term (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; Z71.3 Dietary counseling and surveillance
CPT/HCPCS: 36415; 80053; 80061; 82043; 82306; 82607; 82947; 83721; 84439; 84443; 99212

== ENCOUNTER 2020-11-23 13:36 | Emergency (ER) | payer MEDICARE, SELFPAY ==
--- NOTE | 2020-11-23 | ECG_ITS ---
Test Reason : NECK/SHOULDER PAIN Blood Pressure : / mmHG Vent. Rate : 094 BPM Atrial Rate : 094 BPM P-R Int : 220 ms QRS Dur : 106 ms QT Int : 364 ms P-R-T Axes : 018 -29 052 degrees QTc Int : 455 ms Sinus rhythm with 1st degree A-V block Voltage criteria for left ventricular hypertrophy Abnormal ECG When compared with ECG of 13-SEP-2019 12:51, T wave inversion less evident in Lateral leads Referred By: Generic ED Physician Electronically Signed By:Yung Bautista
--- NOTE | ~2020-11-23 | XR_ITS ---
EXAMINATION:XR cervical spine 2V CLINICAL INFORMATION: Neck pain COMPARISON: 2018 TECHNIQUE: 3 views of the cervical spine were obtained. Frontal lateral and open-mouth odontoid view FINDINGS: 7 cervical vertebrae identified maintaining normal height , loss of normal cervical lordosis probably spasm.. Narrowing of intervertebral disc spaces at C4-C5, C5-C6, C6-C7 and C7-T1 suggests underlying moderate degenerative disc disease. No prevertebral soft tissue swelling. Surrounding soft tissue and included lung apices are clear. XR/XR cervical spine 2V IMPRESSION: Narrowing of disc spaces and developed posterior osteophyte suggest underlying degenerative disc disease Loss of normal cervical lordosis probably spasm.
--- NOTE | ~2020-11-23 | XR_ITS ---
EXAMINATION: XR SHOULDER, RIGHT XR SHOULDER, LEFT CLINICAL INFORMATION: Bilateral shoulder pain. COMPARISON: None TECHNIQUE: AP, Grashey, and scapular Y views of the right and left shoulder. FINDINGS: RIGHT SHOULDER: Small acromioclavicular marginal osteophytes. Small lateral subacromial spurs. No glenohumeral joint space narrowing or marginal osteophytes. No osseous erosion. No fracture or dislocation. Small calcification associated with the distal infraspinatus tendon measuring 0.3 and 0.2 cm, consistent with calcific tendinitis. LEFT SHOULDER: Small acromioclavicular and glenohumeral marginal osteophytes. No osseous erosion. No fracture or dislocation. No abnormal soft tissue calcification. XR/XR shoulder LT min 2V IMPRESSION: Right Shoulder: Mild acromioclavicular osteoarthritis. Distal infraspinatus calcific tendinitis. Left Shoulder: Mild acromioclavicular and glenohumeral osteoarthritis.
--- NOTE | ~2020-11-23 | XR_ITS ---
EXAMINATION: XR SHOULDER, RIGHT XR SHOULDER, LEFT CLINICAL INFORMATION: Bilateral shoulder pain. COMPARISON: None TECHNIQUE: AP, Grashey, and scapular Y views of the right and left shoulder. FINDINGS: RIGHT SHOULDER: Small acromioclavicular marginal osteophytes. Small lateral subacromial spurs. No glenohumeral joint space narrowing or marginal osteophytes. No osseous erosion. No fracture or dislocation. Small calcification associated with the distal infraspinatus tendon measuring 0.3 and 0.2 cm, consistent with calcific tendinitis. LEFT SHOULDER: Small acromioclavicular and glenohumeral marginal osteophytes. No osseous erosion. No fracture or dislocation. No abnormal soft tissue calcification. XR/XR shoulder RT min 2V IMPRESSION: Right Shoulder: Mild acromioclavicular osteoarthritis. Distal infraspinatus calcific tendinitis. Left Shoulder: Mild acromioclavicular and glenohumeral osteoarthritis.
--- NOTE | ~2020-11-23 | XR_ITS ---
EXAMINATION: XR CHEST CLINICAL INFORMATION: Shoulder and neck pain. COMPARISON: Most recent chest radiograph dated 09/13/2019. TECHNIQUE: 2 views of the chest were obtained. FINDINGS: The lungs are clear. The cardiomediastinal silhouette is normal in size. There is no pleural effusion or pneumothorax. No acute osseous abnormality. XR/XR chest 2V IMPRESSION: No acute cardiopulmonary findings.
[2020-11-23 13:39] VITALS: BP 155/88; PULSE 94; RESP 20; TEMP 37.5; O2SAT 98; BMI 30.4
[2020-11-23 16:04] LABS: Hematocrit 42.1 % (37-47); Hemoglobin 13.2 g/dl (12.0-16.0); Mean Corpuscular HGB Conc 31.4 g/dl (31.0-35.0); Mean Corpuscular Hemoglobin 28.1 pg (27.0-33.0); Mean Corpuscular Volume 89.6 fL (80-98); Mean Platelet Volume 10.2 fL (9.4-12.3); Platelet Count 291 X10*3/uL (160-400); Red Cell Distribution Width 15.9 % (11.0-16.0); White Blood Count 9.4 X10*3/uL (4.8-10.8)
[2020-11-23 16:28] LABS: Anion Gap 13 (12-20); Blood Urea Nitrogen 10 mg/dL (9-16); Calcium 10.2 mg/dL (8.4-10.2); Carbon Dioxide 29 mmol/L (22-29); Chloride 101 mmol/L (96-108); Creatinine Clr Calc Pharmacy 70.9; Estimated Glomerular Filt Rate > 60; Glucose Random 108 mg/dL (60-115); Potassium 3.9 mmol/L (3.3-5.1); Sodium 139 mmol/L (135-145)
--- NOTE | 2020-11-23 16:28 | ED.GENADULT ---
HPI - General Adult General Chief complaint: General Medical Stated complaint: back and chest pain Time Seen by Provider: 11/23/20 16:27 Source: patient and family Mode of arrival: ambulatory Limitations: language barrier History of Present Illness HPI narrative: 70-year-old female with past medical history of arthritis, IBS, GERD, hyperlipidemia, hypertension, insulin-dependent diabetes, diabetic 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, anxiety, depression, and chronic pain presents with 2 days of neck, right arm, right back, left shoulder, and muscular pain to her upper back. States that she has a pulling sensation that radiates from her back down her arms bilaterally. She does have a prescription for Tylenol with codeine, but did not take that medication today. She did take some Tylenol Arthritis with poor effect. She does not report any trauma, falls, chest pain or pressure, palpitations, shortness of breath, shortness breath on exertion, abdominal pain, abdominal distention, dysuria, hematuria, nausea, vomiting, diarrhea, constipation, edema, loss of balance, weakness, or any other concerning symptoms. Onset (ago): day(s) (2) Location: neck, left, right and upper extremity Radiation: back Severity: severe Severity scale (1-10): 10 Quality: aching Pain Consistency: constant Relieving factors: none Exacerbating factors: movement Associated symptoms: denies other symptoms Treatments prior to arrival: other (Tylenol arthritis) Related Data Home Medications Medication Instructions Recorded Confirmed szleny-[id number] 1 cap PO TID 07/08/20 11/13/20 24,000-76,000-120,000 unit capsule,delayed rel trazodone 50 mg tablet 25 mg PO BEDTIME PRN 07/08/20 11/13/20 loratadine 10 mg tablet 10 mg PO DAILY 11/13/20 11/13/20 methylcellulose (laxative) 500 mg 500 mg PO DAILY 11/13/20 11/13/20 tablet Previous Rx's Medication Instructions Recorded hydrocortisone 2.5 % topical cream 1 applic TOPICAL DAILY PRN 30 Days 03/18/20 #20 g oxybutynin chloride 10 mg 10 mg PO DAILY 90 Days #90 tab 04/10/20 tablet,extended release 24 hr meclizine 12.5 mg tablet 25 mg PO DAILY PRN #60 tab 06/15/20 methylcellulose (laxative) 500 mg 1,000 mg PO DAILY 30 Days #60 tab 06/20/20 tablet pantoprazole 40 mg tablet,delayed 40 mg PO DAILY 30 Days #30 tab 06/20/20 release simethicone 180 mg capsule 180 mg PO TID 30 Days #90 cap 06/20/20 montelukast 10 mg tablet 10 mg PO DAILY #90 tab 07/07/20 amlodipine 5 mg tablet 5 mg PO DAILY #90 tab 08/11/20 lisinopril 30 mg tablet 30 mg PO DAILY 90 Days #90 tab 08/11/20 pregabalin 100 mg capsule 100 mg PO BID #60 cap 09/03/20 aspirin 81 mg tablet,delayed 81 mg PO DAILY #90 tab 10/07/20 release fluticasone propionate 220 1 puff PO BID 90 Days #12 g 10/15/20 mcg/actuation HFA aerosol inhaler hydroxyzine HCl 10 mg tablet 10 mg PO TID PRN 30 Days #90 tab 10/30/20 venlafaxine 150 mg tablet,extended 150 mg PO DAILY 90 Days #90 tab 10/30/20 release 24 hr Lantus Solostar U-100 Insulin 100 7 unit SUBCUT DAILY 30 Days #3 ml 11/13/20 unit/mL (3 mL) subcutaneous pen NS alcohol swabs 1 pad TOPICAL QID #100 ea 11/13/20 blood sugar diagnostic #100 ea 11/13/20 calcium carbonate 600 mg calcium 600 mg PO BID 30 Days #60 tab 11/13/20 (1,500 mg) tablet dulaglutide 1.5 mg/0.5 mL 1.5 mg SUBCUT QWEEK 30 Days #2.5 ml 11/13/20 subcutaneous pen injector empagliflozin 12.5 mg-metformin 1 tab PO BID 30 Days #60 tab 11/13/20 1,000 mg tablet lancets 28 gauge #100 ea 11/13/20 pen needle, diabetic 32 gauge x #50 ea 11/13/20 acetaminophen 650 mg 650 mg PO Q8H PRN #90 tab 11/16/20 tablet,extended release albuterol sulfate 2.5 mg INHALATION TID 30 Days #270 11/16/20 ml tramadol 50 mg tablet 50 mg PO BID PRN 30 Days #60 tab 11/16/20 dicyclomine 20 mg tablet 20 mg PO TID #270 tab 11/17/20 sucralfate 1 gram tablet 2 g PO DAILY #180 tab 11/17/20 Allergies Allergy/AdvReac Type Severity Reaction Status Date / Time No Known Allergies Allergy Verified 11/23/20 13:39 [No Known Allergies*] Review of Systems Review of Systems: Constitutional: No Fever, No Chills ENT/Mouth: No Ear Pain, No Hoarseness, No sore throat Eyes: No Eye Pain, No Swelling, No Redness, No Foreign Body Cardiovascular: No Chest Pain, No SOB Respiratory: No Cough, No Dyspnea Gastrointestinal: No Nausea, No Vomiting, No Diarrhea, No abdominal Pain Genitourinary: No Dysuria, No Hematuria Musculoskeletal: positive bilateral shoulder, neck, and upper back pain, No Myalgias, No Joint Swelling Skin: No Skin lacerations, No rash Neuro: No Weakness, No Numbness, No Paresthesias, No Loss of Consciousness, No Dizziness, No Headache Psych: No Anxiety/Panic, No Depression Heme/Lymph: no easy bruising, no Lymphadenopathy Endocrine: No Polyuria, No Polydipsia Yes all other systems are reviewed and are negative [facility] Past Medical History Attestation statement: The following information was validated with the patient. 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 Moderate asthma Muscle weakness Osteopenia Polyarthralgia Urge urinary incontinence Vertigo Surgical History History of esophagogastroduodenoscopy (EGD) History of tubal ligation Hx of colonoscopy S/P SHERRY-BSO (total abdominal hysterectomy and bilateral salpingo-oophorectomy) Family History Family History Father Hypertension Mother Cancer Sister Breast cancer Social History Social History Household Members: Significant Other Housing: House Alcohol intake: never Patient Tobacco Use Status: Never used Tobacco Use of substances other than those prescribed or required for medical reasons: No Advance Directives: No Advance Directives Information Provided: No Physical Exam Vital Signs: Vital Signs: Last Vital Signs Temp 99.5 F 11/23/20 13:39 Pulse 91 11/23/20 16:41 Resp 17 11/23/20 16:41 BP 147/78 H 11/23/20 16:41 Pulse Ox 98 11/23/20 16:41 Body Mass Index 30.4 Appearance: Alert. Oriented X3. No acute distress. Eyes: Pupils equal, round and reactive to light. ENT: Pharynx normal. Neck: Normal inspection. Neck supple. No vertebral tenderness or step-offs. CVS: Normal heart rate and rhythm. Pulses normal. Respiratory: No respiratory distress. Breath sounds normal. Abdomen: Soft and nontender. Skin: Skin warm and dry. Normal skin color. Normal skin turgor. Extremities: No lower extremity edema. Moves all extremities against resistance. Has full range of motion. Brisk capillary refill. Equal pulses to all extremities. Neuro: No motor deficit. No sensory deficit. Cranial nerves 2-12 intact. Course Course Course Narrative: 70-year-old female presents with bilateral shoulder, arm, neck and back pain. She does have a history of osteoarthritis and degenerative disc disease. Does not report any trauma, is afebrile and appears nontoxic. Neurovascularly intact. No vertebral tenderness or step-offs noted. Will order x-rays. Patient does report having a prescription for Tylenol with codeine but did not take it today. She is not forthcoming with who prescribed this medication for her and for what purpose this medication was prescribed. Review of stress test in October 03, 2020 indicates that pharmacological stress test with sitting and kicking her leg without anginal symptoms, without arrhythmia, with normotensive response to injection, with nondiagnostic EKG for ischemia. X-rays are negative for acute findings. She does have severe disc disease and arthritis. I will refer to pain management and primary care physician. rn hospital utilized for all correspondence. Google translate utilized for discharge instructions. Patient verbalized understanding of and agrees plan of care discharge home. Medical Decision Making Lab Data Result diagrams: 11/23/20 15:59 11/23/20 15:59 Labs: Lab Results 11/23/20 11/23/20 11/23/20 Range/Units 15:59 15:59 17:29 WBC 9.4 (4.8-10.8) X10*3/uL RBC 4.70 (4.20-5.50) X10*6/uL Hgb 13.2 (12.0-16.0) g/dl Hct 42.1 (37-47) % MCV 89.6 (80-98) fL MCH 28.1 (27.0-33.0) pg MCHC 31.4 (31.0-35.0) g/dl RDW 15.9 (11.0-16.0) % Plt Count 291 (160-400) X10*3/uL MPV 10.2 (9.4-12.3) fL Absolute Nucleated RBC 0.000 (0.0-0.012) X10*3/uL Nucleated RBC % (auto) 0.0 (0.0-0.2) /100WBC Sodium 139 (135-145) mmol/L Potassium 3.9 (3.3-5.1) mmol/L Chloride 101 (96-108) mmol/L Carbon Dioxide 29 (22-29) mmol/L Anion Gap 13 (12-20) BUN 10 (9-16) mg/dL Creatinine 0.74 (0.5-1.4) mg/dL Estim Creat Clear Calc 70.9 Estimated GFR > 60 Random Glucose 108 D (60-115) mg/dL Calcium 10.2 (8.4-10.2) mg/dL Troponin I High Sens < 3.5 (<3.5-17.0) ng/L Imaging Data Cervical spine, shoulders, and chest x-ray: Attestation: I personally reviewed and interpreted this imaging study as follows: Radiologist's impression: CLINICAL INFORMATION: Neck pain COMPARISON: 2018 TECHNIQUE: 3 views of the cervical spine were obtained. Frontal lateral and open-mouth odontoid view FINDINGS: 7 cervical vertebrae identified maintaining normal height , loss of normal cervical lordosis probably spasm.. Narrowing of intervertebral disc spaces at C4-C5, C5-C6, C6-C7 and C7-T1 suggests underlying moderate degenerative disc disease. No prevertebral soft tissue swelling. Surrounding soft tissue and included lung apices are clear. XR/XR cervical spine 2V IMPRESSION: Narrowing of disc spaces and developed posterior osteophyte suggest underlying degenerative disc disease Loss of normal cervical lordosis probably spasm. EXAMINATION: XR SHOULDER, RIGHT XR SHOULDER, LEFT CLINICAL INFORMATION: Bilateral shoulder pain. COMPARISON: None TECHNIQUE: AP, Grashey, and scapular Y views of the right and left shoulder. FINDINGS: RIGHT SHOULDER: Small acromioclavicular marginal osteophytes. Small lateral subacromial spurs. No glenohumeral joint space narrowing or marginal osteophytes. No osseous erosion. No fracture or dislocation. Small calcification associated with the distal infraspinatus tendon measuring 0.3 and 0.2 cm, consistent with calcific tendinitis. LEFT SHOULDER: Small acromioclavicular and glenohumeral marginal osteophytes. No osseous erosion. No fracture or dislocation. No abnormal soft tissue calcification. XR/XR shoulder RT min 2V IMPRESSION: Right Shoulder: Mild acromioclavicular osteoarthritis. Distal infraspinatus calcific tendinitis. Left Shoulder: Mild acromioclavicular and glenohumeral osteoarthritis. EXAMINATION: XR CHEST CLINICAL INFORMATION: Shoulder and neck pain. COMPARISON: Most recent chest radiograph dated 09/13/2019. TECHNIQUE: 2 views of the chest were obtained. FINDINGS: The lungs are clear. The cardiomediastinal silhouette is normal in size. There is no pleural effusion or pneumothorax. No acute osseous abnormality. XR/XR chest 2V IMPRESSION: No acute cardiopulmonary findings. ECG Data Attestation: I personally reviewed and interpreted this ECG as follows: Interpretation: Vent. rate 94 BPM CA interval 220 ms QRS duration 106 ms QT/QTc 364/455 ms P-R-T axes 18 -29 52 Sinus rhythm with 1st degree A-V block Voltage criteria for left ventricular hypertrophy Abnormal ECG When compared with ECG of 13-SEP-2019 12:51, T wave inversion less evident in Lateral leads 23-NOV-2020 13:53:52 Discharge Plan Discharge Clinical Impression: Arthritis, Polyarthralgia Patient Disposition: Home, Self-Care Instructions: Arthritis (ED) Additional Instructions: Fue evaluado por dolor de aleksandar, hombros y espalda. Los michelle X indican artritis de la columna y los hombros. Contin?e tomando los medicamentos que le hayan recetado. Seguimiento con el manejo del dolor DR Aviles. Timi por elegir yvrose departamento de emergencias para tran evaluaci?n. Echo un seguimiento con tran m?dico de atenci?n primaria seg?n sea necesario. Regrese al departamento de emergencias por cualquier s?ntoma nuevo, preocupante o que empeore. You were evaluated for neck, shoulder and back pain. X-rays indicate arthritis of the spine and shoulders. Please continue to take medications that are prescribed to you. Follow-up with pain management DR Aviles. Thank you for choosing this emergency department for evaluation. Please follow-up with primary care physician as needed. Return to the emergency department for any new, concerning, or worsening symptoms. Prescriptions: No Action hydrocortisone 2.5 % cream 1 applic topical DAILY PRN (Reason: rash) 30 Days Qty: 20 RF: 0 meclizine 12.5 mg tablet 25 mg PO DAILY PRN (Reason: dizziness) Qty: 60 RF: 3 montelukast 10 mg tablet 10 mg PO DAILY Qty: 90 RF: 3 aspirin 81 mg tablet,delayed release (DR/EC) 81 mg PO DAILY Qty: 90 RF: 3 Flovent HFA 220 mcg/actuation HFA aerosol inhaler 1 puff PO BID 90 Days Qty: 12 RF: 6 venlafaxine 150 mg tablet extended release 24hr 150 mg PO DAILY 90 Days Qty: 90 RF: 1 hydroxyzine HCl 10 mg tablet 10 mg PO TID PRN (Reason: itching) 30 Days Qty: 90 RF: 1 tramadol 50 mg tablet 50 mg PO BID PRN (Reason: pain) 30 Days Qty: 60 RF: 0 albuterol sulfate 2.5 mg /3 mL (0.083 %) solution for nebulization 2.5 mg inhalation TID 30 Days Qty: 270 RF: 2 acetaminophen [Mapap Arthritis Pain] 650 mg tablet extended release 650 mg PO Q8H PRN (Reason: pain) Qty: 90 RF: 3 sucralfate 1 gram tablet 2 g PO DAILY Qty: 180 RF: 0 dicyclomine 20 mg tablet 20 mg PO TID Qty: 270 RF: 0 oxybutynin chloride 10 mg tablet extended release 24hr 10 mg PO DAILY 90 Days Qty: 90 RF: 2 lisinopril 30 mg tablet 30 mg PO DAILY 90 Days Qty: 90 RF: 1 amlodipine 5 mg tablet 5 mg PO DAILY Qty: 90 RF: 1 pantoprazole 40 mg tablet,delayed release (DR/EC) 40 mg PO DAILY 30 Days Qty: 30 RF: 6 simethicone 180 mg capsule 180 mg PO TID 30 Days Qty: 90 RF: 3 Citrucel 500 mg tablet 1,000 mg PO DAILY 30 Days Qty: 60 RF: 6 Creon 24,000-76,000 -120,000 unit capsule,delayed release(DR/EC) 1 cap PO TID RF: 0 trazodone 50 mg tablet 25 mg PO BEDTIME PRNRF: 0 pregabalin 100 mg capsule 100 mg PO BID Qty: 60 RF: 5 Fiber Therapy (m-cellulose) 500 mg tablet 500 mg PO DAILY RF: 0 loratadine 10 mg tablet 10 mg PO DAILY RF: 0 alcohol swabs [Alcohol Prep Pads] Pads, Medicated 1 pad topical QID Qty: 100 RF: 6 (DME) FreeStyle Lite Strips Strip See Rx Instructions .ROUTE .MEDSUPPLY Qty: 100 RF: 11 calcium carbonate 600 mg calcium (1,500 mg) tablet 600 mg PO BID 30 Days Qty: 60 RF: 11 dulaglutide 1.5 mg/0.5 mL pen injector 1.5 mg subcut QWEEK 30 Days Qty: 2.5 RF: 6 Synjardy 12.5-1,000 mg tablet 1 tab PO BID 30 Days Qty: 60 RF: 6 (DME) lancets [FreeStyle Lancets] 28 gauge misc See Rx Instructions .ROUTE .MEDSUPPLY Qty: 100 RF: 11 Lantus Solostar U-100 Insulin 100 unit/mL (3 mL) insulin pen 7 unit subcut DAILY 30 Days Qty: 3 RF: 6 (DME) pen needle, diabetic [BD Ultra-Fine Guerda Pen Needle] 32 gauge x 5/32 needle See Rx Instructions .ROUTE .MEDSUPPLY Qty: 50 RF: 11 Referrals: Joshua Aviles MD [Physician] - 2 days (Degenerative disc disease of the cervical spine and bilateral shoulder arthritis) Interventions: ED Discharge Assessment Last Done: 11/23/20 19:37 Discharge Date/Time: 11/23/20 19:40
[2020-11-23 16:41] VITALS: BP 147/78; PULSE 91; RESP 17; O2SAT 98
--- NOTE | 2020-11-23 17:36 | PC.NURSE ---
Pt alert and oriented x3. Pt reports neck and shoulder pain x2 days. She denies fall/injury. Pt states she took Tylenol with no relief. Pt able to move all extremities without difficulty, however she c/o pain with movement. Pt in no apparent distress at this time. Labs drawn, results pending.
[2020-11-23 18:09] LABS: Troponin-I High Sensitivity < 3.5 ng/L (<3.5-17.0)
== END 2020-11-23 19:40 | disposition home or self-care (01) ==
PROVIDERS: Nurse Practitioner Family; Emergency Provider Internal Medicine; PCP Internal Medicine
DX: M19.012 Primary osteoarthritis, left shoulder (principal); R07.9 Chest pain, unspecified; M54.9 Dorsalgia, unspecified; M54.2 Cervicalgia; M25.512 Pain in left shoulder; M25.511 Pain in right shoulder; Z79.899 Other long term (current) drug therapy
CPT/HCPCS: 36415; 71046; 72040; 73030; 80048; 84484; 85027; 93005; 99284

== ENCOUNTER → 2020-12-05 12:49 | Outpatient (BNVA) | payer MEDICARE, SELFPAY | PROVIDERS: PCP Internal Medicine; Visit Provider Nurse Practitioner | DX: K58.0 Irritable bowel syndrome with diarrhea (principal); K21.9 Gastro-esophageal reflux disease without esophagitis; R14.0 Abdominal distension (gaseous); R10.13 Epigastric pain; R74.8 Abnormal levels of other serum enzymes | CPT/HCPCS: Q3014 ==

== ENCOUNTER → 2020-12-22 14:20 | Outpatient (BNVA) | payer MEDICARE, SELFPAY | PROVIDERS: PCP Internal Medicine; Visit Provider Internal Medicine | DX: M46.92 Unspecified inflammatory spondylopathy, cervical region (principal); M47.816 Spondylosis without myelopathy or radiculopathy, lumbar region | CPT/HCPCS: 99202 ==

== ENCOUNTER 2021-06-08 13:02 | Outpatient (REF) | payer MEDICARE, SELFPAY ==
[2021-06-08 15:27] LABS: Alanine Aminotransferase 27 U/L (0-31); Albumin Level 4.1 g/dL (3.5-5.0); Alkaline Phosphatase 95 U/L (39-117); Aspartate Amino Transferase 28 U/L (5-31); Bilirubin Direct < 0.2 mg/dL (0.0-0.5); Bilirubin Total 0.3 mg/dL (0.0-1.0); Gamma Glutamyl Transpeptidase 19 U/L (7-33); Total Protein 7.7 g/dL (6.5-8.0)
[2021-06-08 15:39] LABS: Ferritin 20 ng/mL (10-250)
[2021-06-09 04:47] LABS: HBS Num1 1.24 mIU/mL (0-7.99); HBc Num1 0.37 S/CO (0.00-0.79); HBsAGNum1 0.28 S/CO (0.00-0.99); HIV AB/AG Nonreactive (Nonreactive); HIV Num 1 0.11 S/CO (0.00-0.99); Hepatitis B Core Antibody Nonreactive (Nonreactive); Hepatitis B Surface Antigen Negative (Negative); ~HepC Num1 0.18 S/CO (0.00-0.79); ~Hepatitis B Surface Antibody NONREACTIVE (Nonreactive); ~Hepatitis C Antibody Nonreactive (Nonreactive)
[2021-06-10 03:40] LABS: Hepatitis A Antibody IgM 0.42 Index (0-0.79); ~Hepatitis A Antibody IgM Nonreactive (Nonreactive)
[2021-06-10 11:41] LABS: Alpha Fetoprotein 5.8 ng/mL
[2021-06-10 13:11] LABS: Anti Nuclear Antibody Screen NEGATIVE (NEGATIVE)
[2021-06-11 15:01] LABS: Mitochondrial Antibodies NEGATIVE (NEGATIVE)
[2021-06-13 23:31] LABS: Smooth Muscle Antibody <20 U (<20)
== END 2021-06-08 13:03 | disposition home or self-care (01) ==
LOC: HO.LAB 13:02
PROVIDERS: PCP Internal Medicine; Referring Provider Internal Medicine; Visit Provider Nurse Practitioner
DX: Z11.4 Encounter for screening for human immunodeficiency virus [HIV] (principal); R10.13 Epigastric pain; K21.9 Gastro-esophageal reflux disease without esophagitis; K58.0 Irritable bowel syndrome with diarrhea; R74.8 Abnormal levels of other serum enzymes; Z80.0 Family history of malignant neoplasm of digestive organs
CPT/HCPCS: 36415; 80076; 82105; 82728; 82977; 86015; 86038; 86039; 86255; 86256; 86704; 86706; 86709; 86803; 87340; 87389; 99212

== ENCOUNTER → 2021-06-24 14:05 | Outpatient (BNVA) | payer MEDICARE, SELFPAY | PROVIDERS: PCP Internal Medicine; Visit Provider Internal Medicine Endocrinology, Diabetes & Metabolism | DX: E11.42 Type 2 diabetes mellitus with diabetic 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 (principal); E78.5 Hyperlipidemia, unspecified; Z79.4 Long term (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 | CPT/HCPCS: 82947; 83036; 99212 ==

== ENCOUNTER 2021-07-13 14:36 | Outpatient (REF) | payer MEDICARE, SELFPAY ==
--- NOTE | ~2021-07-13 | MM_ITS ---
EXAMINATION: MM SCREENING DIGITAL BREAST TOMOSYNTHESIS, BILATERAL CLINICAL INFORMATION: Screening. Asymptomatic. The lifetime risk of breast cancer based on the Tyrer-Cuzick Model is 3%. COMPARISON: Mammography: 11/14/2018, 10/19/2017, 09/08/2016 TECHNIQUE: Digital breast tomosynthesis is performed in both the craniocaudal and mediolateral oblique views along with computer-aided detection (CAD). Synthesized 2D images are generated from the tomosynthesis. FINDINGS: There are scattered areas of fibroglandular density (ACR BI-RADS breast composition Category b). There are no significant masses, abnormal calcifications, or other abnormalities. Parenchymal pattern is similar to prior studies. Smooth oval nodule likely an intramammary node mid upper outer right breast is stable from prior studies. There are scattered bilateral punctate benign round and vascular calcifications again seen. There are no significant changes. MM/MM tomosynthesis screening BI IMPRESSION: No mammographic evidence of malignancy. ASSESSMENT: BI-RADS 2: Benign RECOMMENDATION: Routine annual mammography screening. This patient's information was entered into a reminder system with a target due date for their next mammogram.
== END 2021-07-13 14:37 | disposition home or self-care (01) ==
LOC: HO.MAMMO 14:36
PROVIDERS: PCP Internal Medicine; Visit Provider Internal Medicine
DX: Z12.31 Encounter for screening mammogram for malignant neoplasm of breast (principal)
CPT/HCPCS: 77063; 77067

== ENCOUNTER → 2021-07-17 13:57 | Outpatient (BNVA) | payer MEDICARE, SELFPAY | PROVIDERS: PCP Internal Medicine; Referring Provider Internal Medicine; Visit Provider Nurse Practitioner | DX: K58.0 Irritable bowel syndrome with diarrhea (principal); K21.9 Gastro-esophageal reflux disease without esophagitis; K75.81 Nonalcoholic steatohepatitis (NASH); Z80.0 Family history of malignant neoplasm of digestive organs | CPT/HCPCS: 99212 ==

== ENCOUNTER 2021-07-28 10:00 | Outpatient (REF) | payer MEDICARE, SELFPAY ==
--- NOTE | ~2021-07-28 | US_ITS ---
EXAMINATION: US ABDOMEN LIMITED CLINICAL INFORMATION: Abnormal levels of other serum enzymes. COMPARISON: Ultrasound abdomen complete 07/02/2020. CT abdomen and pelvis without contrast 08/16/2018. TECHNIQUE: Real-time imaging of the right upper quadrant abdominal viscera. FINDINGS: PANCREAS: Normal. LIVER: The liver is normal in size. The liver contour is normal. Parenchymal echogenicity is slightly increased. No focal hepatic lesion. There is no intrahepatic biliary duct dilatation seen. GALLBLADDER: Normal. The gallbladder is physiologically distended without evidence of stones, sludge, polyps, wall thickening or pericholecystic fluid. COMMON BILE DUCT: Normal in caliber measuring 0.8 cm in diameter. RIGHT KIDNEY: Normal No hydronephrosis. No renal calculi or focal parenchymal lesions. The kidney measures 12.5 cm in maximum dimension. FREE FLUID: None. US/US abdomen limited IMPRESSION: Slightly echogenic liver probably representing fatty infiltration similar to previous ultrasound.
== END 2021-07-28 10:01 | disposition home or self-care (01) ==
LOC: HO.US 10:00
PROVIDERS: Visit Provider Nurse Practitioner
DX: R74.8 Abnormal levels of other serum enzymes (principal)
CPT/HCPCS: 76705

== ENCOUNTER 2021-08-07 12:59 | Outpatient (REF) | payer OTHER, SELFPAY ==
--- NOTE | ~2021-08-07 | XR_ITS ---
EXAMINATION: XR HAND, BILATERAL CLINICAL INFORMATION: Bilateral hand pain. COMPARISON: 10/04/2020 TECHNIQUE: 3 views of each hand. FINDINGS: Right Hand: No periarticular osteopenia or active erosions. Mild osteoarthritis of the interphalangeal joints with narrowing and small marginal osteophytes. Carpal joint spaces are preserved. No acute osseous abnormality. Left Hand: No periarticular osteopenia or erosions. Mild osteoarthritis of the interphalangeal joints with narrowing and small marginal osteophytes. Probable remote, healed fracture of the 3rd metacarpal. Moderate osteoarthritis of the triscaphoid articulation. XR/XR hand LT min 3V IMPRESSION: Degenerative findings as described. No acute osseous abnormality or evidence of an inflammatory arthropathy.
--- NOTE | ~2021-08-07 | XR_ITS ---
EXAMINATION: XR HAND, BILATERAL CLINICAL INFORMATION: Bilateral hand pain. COMPARISON: 10/04/2020 TECHNIQUE: 3 views of each hand. FINDINGS: Right Hand: No periarticular osteopenia or active erosions. Mild osteoarthritis of the interphalangeal joints with narrowing and small marginal osteophytes. Carpal joint spaces are preserved. No acute osseous abnormality. Left Hand: No periarticular osteopenia or erosions. Mild osteoarthritis of the interphalangeal joints with narrowing and small marginal osteophytes. Probable remote, healed fracture of the 3rd metacarpal. Moderate osteoarthritis of the triscaphoid articulation. XR/XR hand RT min 3V IMPRESSION: Degenerative findings as described. No acute osseous abnormality or evidence of an inflammatory arthropathy.
== END 2021-08-07 13:00 | disposition home or self-care (01) ==
LOC: HO.XRAY 12:59
PROVIDERS: PCP Internal Medicine; Visit Provider Nurse Practitioner Family
DX: E11.42 Type 2 diabetes mellitus with diabetic 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 (principal); M79.641 Pain in right hand; M79.642 Pain in left hand
CPT/HCPCS: 73130; 99212

== ENCOUNTER 2021-09-03 07:05 | Day surgery (SDC) | payer OTHER, SELFPAY ==
[2021-08-28 13:16] VITALS: BMI 29.9
--- NOTE | 2021-09-02 11:45 | HO.ANESPROP2 ---
Documented by User: Maday Landeros NP 09/02/21 11:47 HPI - Anesthesia Eval Consult details Narrative: 71yo F for Colonoscopy PMFSH Active Problems Active Problems: All Active Problems (Updated 08/28/21 @ 13:17 by Amber Herrera, GABRIELA) GERD (gastroesophageal reflux disease) (Acute) Abdominal bloating (Acute) Irritable bowel syndrome with diarrhea (Acute) Epigastric pain (Acute) Abdominal bloating (Acute) Elevated aldolase level (Acute) Family history of colon cancer (Acute) POST (nonalcoholic steatohepatitis) (Acute) Bilateral hand pain (Acute) Cervical spondylitis (Acute) Lumbar spondylosis (Acute) Polyarthralgia (Acute) Mild recurrent major depression (Acute) Muscle weakness (Acute) Dyslipidemia (Acute) Elevated CPK (Acute) Osteopenia (Acute) Diabetic 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 associated with type 2 diabetes mellitus (Acute) prison (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 (Acute) Diabetes type 2, controlled (Acute) Lab test positive for detection of COVID-19 virus (Acute) Urge urinary incontinence (Acute) Moderate asthma (Acute) Vertigo (Acute) Polyarthralgia (Acute) Depression with anxiety (Acute) Essential hypertension (Acute) Diabetes mellitus (Acute) Past Medical History Medical History Cervical spondylitis COVID-19 vaccine series completed Depression with anxiety Diabetes mellitus Diabetes type 2, controlled Diabetic 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 associated with type 2 diabetes mellitus Dyslipidemia Elevated CPK Essential hypertension Lab test 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 for detection of COVID-19 virus 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 Lumbar spondylosis Mild recurrent major depression Moderate asthma Muscle weakness Osteopenia Polyarthralgia Polyarthralgia Urge urinary incontinence Vertigo Family History Family History Father Hypertension Mother Cancer Sister Breast cancer Surgical History Surgical History History of esophagogastroduodenoscopy (EGD) History of surgery on extremity History of tubal ligation Hx of colonoscopy S/P SHERRY-BSO (total abdominal hysterectomy and bilateral salpingo-oophorectomy) Social History Social History Household Members: Significant Other Housing: House Alcohol intake: never Patient Tobacco Use Status: Never used Tobacco e-Cigarette/Vaping Use: Never Used Second Hand Smoke Exposure: No Advance Directives: No Advance Directives Information Provided: Yes Advance Directives on File: No service: No Current occupational status: disabled Meds Allergies Allergy/AdvReac Type Severity Reaction Status Date / Time No Known Allergies Allergy Verified 09/03/21 07:32 [No Known Allergies*] Home Medications Medication Instructions Recorded Confirmed Last Taken Type trazodone 50 mg tablet 25 mg PO BEDTIME PRN 07/08/20 08/28/21 Unknown History pregabalin 100 mg capsule (Lyrica) 100 mg PO BID 08/07/21 08/28/21 Unknown History Exam Exam Date and Time: September 02, 2021 1145 Height,Weight and Vital Signs: Height 5 ft 3 in Weight 76.657 kg Narrative Narrative: EKG 11/2020 Vent. Rate : 094 BPM ? ? Atrial Rate : 094 BPM ?? P-R Int : 220 ms? QRS Dur : 106 ms ? ? QT Int : 364 ms ? ? ? P-R-T Axes : 018 -29 052 degrees ?? QTc Int : 455 ms ? Sinus rhythm with 1st degree A-V block Voltage criteria for left ventricular hypertrophy Abnormal ECG When compared with ECG of 13-SEP-2019 12:51, T wave inversion less evident in Lateral leads NM marj perf SPECT rest & str 09/2020 Impression: ? 1.? Myocardial perfusion imaging study shows likely normal myocardial perfusion 2.? Gated LVEF is 70% 3. Transient ischemic dilatation not present ? 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 Lumbar spondylosis Mild recurrent major depression Moderate asthma Muscle weakness Osteopenia Polyarthralgia Polyarthralgia Urge urinary incontinence Vertigo Functional capacity: independent ambulation Patient : No Family History Family History Father Hypertension Mother Cancer Sister Breast cancer Family history of problems with anesthesia: No Surgical History Surgical History History of esophagogastroduodenoscopy (EGD) History of surgery on extremity History of tubal ligation Hx of colonoscopy S/P SHERRY-BSO (total abdominal hysterectomy and bilateral salpingo-oophorectomy) History of Problems with Anesthesia: No Social History Social History Household Members: Significant Other Housing: House Alcohol intake: never Patient Tobacco Use Status: Never used Tobacco e-Cigarette/Vaping Use: Never Used Second Hand Smoke Exposure: No Advance Directives: No Advance Directives Information Provided: Yes Advance Directives on File: No service: No Current occupational status: disabled Meds Allergies Allergy/AdvReac Type Severity Reaction Status Date / Time No Known Allergies Allergy Verified 09/03/21 07:32 [No Known Allergies*] Home Medications Medication Instructions Recorded Confirmed Last Taken Type trazodone 50 mg tablet 25 mg PO BEDTIME PRN 07/08/20 08/28/21 Unknown History pregabalin 100 mg capsule (Lyrica) 100 mg PO BID 08/07/21 08/28/21 Unknown History Exam Airway Mallampati Class: II TM Dist: >3cm Neck ROM: Full Heart: RRR Lungs: CTA Assessment and Plan Final Anesthetic Review Family History of Problems with Anesthesia: No History of Problems with Anesthesia: No Final Preanesthetic Review: No Changes in Pt Med Stat, Meds/Allgs Chart Reviewed, Consent Obtained/Reviewed and Anes Risks/Benef Reviewed Patient Risk: Low Procedure Risk: Low Anesthetic Plan Anesthetic Plan: MAC: Disposition: Standard PACU
--- NOTE | 2021-09-03 06:33 | MHC.SHP ---
Pre-Procedural Eval Section A Date of Service: 09/03/21 Section B Chief Complaint: fam hx Details of Present Illness: screening colon, FH of CRC in sister Relevant Family History (Specify if Yes): Yes Relevant Social History: None Present Medications: see Short Stay Collaborative assessment Medical History: Significant History (Depression with anxiety Diabetes mellitus Diabetes type 2, controlled Diabetic 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 associated with type 2 diabetes mellitus Dyslipidemia Elevated CPK Essential hypertension Lab test positive for detection of COVID-19 virus longterm (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 Lumbar spondylosis Mild recurre) History of Previous Operations: Relevant previous surgery/procedure and date(s) (History of esophagogastroduodenoscopy (EGD) History of surgery on extremity History of tubal ligation Hx of colonoscopy S/P SHERRY-BSO (total abdominal hysterectomy and bilateral salpingo-oophorectomy)) Allergies: Allergies Allergy/AdvReac Type Severity Reaction Status Date / Time No Known Allergies Allergy Verified 08/07/21 13:20 [No Known Allergies*] Review of Systems Sugical H&P ROS: Negative: Constitution, Cardiovascular, Respiratory, Neurological, Psychiatric, Hem-Onc, Allergic/Immunologic, Gastrointestinal, Genitourinary, Musculoskeletal, Integumentary, Endocrine and Eyes/Ears/Nose/Throat Exam Surgical H&P Exam: Normal: HEENT, Normal: Heart, Normal: Lungs, Normal: Extremities, Normal: Abdomen, Normal: Skin and Normal: Neurological Plan Diagnosis/Plan: Unchanged I have reviewed the history and physical and performed a pertinent physical examination on my patient. No changes have occurred unless specified.
[2021-09-03 07:39] VITALS: BP 141/82; PULSE 79; RESP 16; TEMP 36.3; O2SAT 96
[2021-09-03 07:40] LABS: Glucose, Whole Blood 108 mg/dL (60-115)
[2021-09-03] MEDS: Lactated Ringers 1,000 ML 100 ML IVCONT (07:49)
--- NOTE | 2021-09-03 09:04 | P.OP_ITS ---
Operative Note Operative Note Date of Service: 09/03/21 Narrative: Operative Information Procedure Description: Colonoscopy Indication: screening colon, FH of CRC in sister Anesthesia: MAC COLONOSCOPY Instrument: Olympus variable stiffness pediatric scope 190L Colonoscopy Monitoring: Vital signs and clinical assessment, continuous EKG monitoring, Pulse oximetry, Carbon Dioxide monitoring and blood pressure monitoring were done throughout the procedure. Colon withdrawal time was 6 minutes. Procedure: The patient was placed in the left lateral decubitis position and pre-procedure medications were administered. After a digital rectal examination of the ano-rectum, the video colonoscope was inserted into the rectum and advanced through the colon to the cecum/TI. The colonoscope was slowly withdrawn in a retrograde panoramic fashion and the colon mucosa was carefully examined including a retroflexed view of the rectum. Findings and interventions are described below. Procedure Difficulty: easy Findings: Terminal Ileum-not intubated Cecum:normal Ascending Colon: normal Transverse Colon -normal Descending Colon:normal Sigmoid Colon: mild to moderate diverticulosis Rectum: Retroflexion with small internal hemorrhoids, grade I Anorectum - normal Colon preparation: [place] Bowel Preparation Scale Right colon; 0 Transverse colon: 2 Left colon; 1 (0 = Unprepared colon segment with mucosa not seen due to solid stool that cannot be cleared. 1 = Portion of mucosa of the colon segment seen, but other areas of the colon segment not well seen due to staining, residual stool and/or opaque liquid. 2 = Minor amount of residual staining, small fragments of stool and/or opaque liquid, but mucosa of colon segment seen well. 3 = Entire mucosa of colon segment seen well with no residual staining, small fragments of stool or opaque liquid) Impression and Post Procedure Diagnosis: poor prep diverticulosis internal hemorrhoids Plan: High fiber diet leaflet Avoid straining at stool, epsom salts and sitz bath, anusol supps or cream Repeat Colonoscopy in 6-12 months or earlier if clinically indicated, needs to follow prep instructions for next time Above findings were reviewed with the patient and relevant handouts were provided if indicated.
--- NOTE | 2021-09-03 09:04 | P.BOP_ITS ---
Brief Operative Note Date of Service: 09/03/21 Pre-op diagnosis: screening colon, FH of CRC in sister Post-op diagnosis: same Procedure: see op note Surgeon: Cr Barber MD Anesthesia: MAC Was an Customer Service Security Officer used for this Procedure?: No Estimated blood loss (mL): 0 Condition: stable Disposition: PACU
[2021-09-03 09:10] VITALS: BP 119/65; PULSE 67; RESP 16; TEMP 36.4; O2SAT 97
--- NOTE | 2021-09-03 09:12 | HO.POSTANES ---
Post Anesthesia Evaluation Post Anesthesia Evaluation Vital Signs: Vital Signs Temp Pulse Resp BP Pulse Ox 09/03/21 07:39 97.4 F 79 16 141/82 H 96 Anesthesia: Monitored Mental Status: Awake Pain Control: Satisfactory Nausea/Vomiting: None Hydration: Adequate Anesthesia-Related Issues: No Anes. Related Issues
[2021-09-03 09:25] VITALS: BP 135/73; PULSE 72; RESP 16; TEMP 36.2; O2SAT 100
== END 2021-09-03 09:45 | disposition home or self-care (01) ==
PROVIDERS: PCP Internal Medicine; Visit Provider Internal Medicine Gastroenterology
PROC: 0DJD8ZZ Inspection of Lower Intestinal Tract, Via Natural or Artificial Opening Endoscopic (ICD-10-PCS; CPT 45378; principal; 2021-09-03 08:30)
DX: Z12.11 Encounter for screening for malignant neoplasm of colon (principal); Z80.0 Family history of malignant neoplasm of digestive organs; K57.30 Diverticulosis of large intestine without perforation or abscess without bleeding; K64.0 First degree hemorrhoids; K58.0 Irritable bowel syndrome with diarrhea; K21.9 Gastro-esophageal reflux disease without esophagitis; K76.0 Fatty (change of) liver, not elsewhere classified; E78.5 Hyperlipidemia, unspecified; I10 Essential (primary) hypertension; J45.909 Unspecified asthma, uncomplicated; E11.42 Type 2 diabetes mellitus with diabetic 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; Z79.4 Long term (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; Z79.51 Long term (current) use of inhaled steroids; Z79.899 Other long term (current) drug therapy; Z79.82 Long term (current) use of aspirin
CPT/HCPCS: G0105; 82947

== ENCOUNTER 2021-09-14 13:23 | Outpatient (REF) | payer OTHER, SELFPAY ==
--- NOTE | ~2021-09-14 | XR_ITS ---
EXAMINATION: XR ABDOMEN KUB CLINICAL INDICATION: K21.9 - Gastro-esophageal reflux disease without esophagitis COMPARISON: Ultrasound right upper quadrant abdomen 07/28/2021, CT abdomen and pelvis noncontrast 08/16/2018 TECHNIQUE: AP x2 views of the abdomen. FINDINGS: There is scattered gas in the bowel of normal caliber. There is no gaseous dilatation of bowel or abnormal collections of gas. Lung bases appear clear. There is moderate stool throughout the colon. No rectal fecal impaction. Again, there are calcified granulomata involving the left mediastinum, left lung base, spleen, as well as scattered calcified mesenteric and retroperitoneal nodes as noted on CT 2018. Numerous calcified phleboliths again seen in the pelvis. There are degenerative changes lower thoracic and lumbosacral spine. XR/XR KUB IMPRESSION: -Moderate stool throughout colon. No rectal fecal impaction. -No gaseous dilatation of bowel or abnormal collections of gas.
[2021-09-14 13:44] LABS: MANUAL DIFF FLAG NO
[2021-09-14 13:59] LABS: Basophils Percent Auto 0.5 % (0-2); Eosinophils Absolute Auto 0.1 X10*3/uL (0.0-0.4); Eosinophils Percent Auto 1.8 % (0-4); Hematocrit 39.4 % (37.0-47.0); Hemoglobin 12.6 g/dl (12.0-16.0); Imm Gran Abs Auto 0.05 X10*3/uL (0.00-0.03); Imm Gran Pct Auto 0.7 % (0.0-0.4); Lymphocytes Percent Auto 41.5 % (20-40); Mean Corpuscular Hemoglobin 27.6 pg (27.0-33.0); Mean Corpuscular Volume 86.2 fL (80.0-98.0); Mean Platelet Volume 10.8 fL (9.4-12.3); Monocytes Absolute Auto 0.6 X10*3/uL (0.1-1.2); Monocytes Percent Auto 7.8 % (2-11); Neutrophils Absolute Auto 3.5 x10*3/uL (2.0-8.3); Neutrophils Percent Auto 47.7 % (45-73); Platelet Count 279 X10*3/uL (160-400); Red Blood Count 4.57 X10*6/uL (4.20-5.50); Red Cell Distribution Width 14.9 % (11.0-16.0); White Blood Count 7.3 X10*3/uL (4.8-10.8)
[2021-09-14 14:23] LABS: Alanine Aminotransferase 46 U/L (0-31); Albumin Level 4.1 g/dL (3.5-5.0); Alkaline Phosphatase 92 U/L (39-117); Anion Gap 12 (12-20); Aspartate Amino Transferase 39 U/L (5-31); Bilirubin Total 0.3 mg/dL (0.0-1.0); Blood Urea Nitrogen 10 mg/dL (9-16); C Reactive Protein 0.18 mg/dL (< or = 0.50); Calcium 9.8 mg/dL (8.4-10.2); Carbon Dioxide 28 mmol/L (22-29); Chloride 105 mmol/L (96-108); Estimated Glomerular Filt Rate > 60; Glucose Random 109 mg/dL (60-115); Potassium 4.1 mmol/L (3.3-5.1); Sodium 141 mmol/L (135-145); Total Protein 7.7 g/dL (6.5-8.0)
[2021-09-14 14:44] LABS: Erythrocyte Sedimentation Rate 14 MM/HR (0-20)
== END 2021-09-14 13:24 | disposition home or self-care (01) ==
LOC: HO.XRAY 13:23
PROVIDERS: PCP Internal Medicine; Visit Provider Internal Medicine Gastroenterology
DX: R10.13 Epigastric pain (principal); K21.9 Gastro-esophageal reflux disease without esophagitis; R14.0 Abdominal distension (gaseous); K75.81 Nonalcoholic steatohepatitis (NASH)
CPT/HCPCS: 36415; 74018; 80053; 85025; 85652; 86140

== ENCOUNTER 2021-09-15 23:00 | Outpatient (REF) | payer OTHER, SELFPAY ==
[2021-09-16 10:59] LABS: CDiff Gene PCR NEGATIVE (Negative)
== END 2021-09-15 23:01 | disposition home or self-care (01) ==
LOC: HO.LNP 23:00
PROVIDERS: Visit Provider Internal Medicine Gastroenterology
DX: R10.13 Epigastric pain (principal); R14.0 Abdominal distension (gaseous); K21.9 Gastro-esophageal reflux disease without esophagitis
CPT/HCPCS: 87493

== ENCOUNTER → 2021-09-17 13:48 | Outpatient (BNVA) | payer OTHER, SELFPAY | PROVIDERS: PCP Internal Medicine; Referring Provider Internal Medicine; Visit Provider Nurse Practitioner | DX: K58.0 Irritable bowel syndrome with diarrhea (principal); K21.9 Gastro-esophageal reflux disease without esophagitis; K75.81 Nonalcoholic steatohepatitis (NASH); Z80.0 Family history of malignant neoplasm of digestive organs | CPT/HCPCS: 99212 ==

== ENCOUNTER 2021-09-27 08:50 | Emergency (ER) | payer OTHER, SELFPAY ==
--- NOTE | 2021-09-27 09:32 | ED.GENADULT ---
HPI - General Adult General Chief complaint: Nausea/Vomiting/Diarrhea Stated complaint: Diarrhea/Dizzy Time Seen by Provider: 09/27/21 09:32 Source: patient and sign language interpreter Mode of arrival: ambulatory Limitations: language barrier History of Present Illness HPI narrative: Patient is a 71 year old female presenting to the emergency department today with nausea, diarrhea, and dizziness. Patient states that for the last 3 days, she has had nausea, diarrhea, and dizziness. Patient states that her is also sick with these symptoms at home. Patient denies any dizziness, lightheadedness, fever, chills, blurry vision, double vision, loss of vision, chest pain, difficulty breathing, shortness of breath, back pain, night sweats, pain with urination, increased urinary frequency, increased urinary urgency, blood in her urine or stool, syncope or a near syncopal episode, recent trauma or falls, bowel incontinence, bladder incontinence, bowel retention, bladder retention, or any other complaints at this time. Onset (ago): day(s) (3) Severity: mild Severity scale (1-10): 3 Relieving factors: none Exacerbating factors: none Associated symptoms: nausea/vomiting Treatments prior to arrival: none Related Data Home Medications Medication Instructions Recorded Confirmed trazodone 50 mg tablet 25 mg PO BEDTIME PRN 07/08/20 08/28/21 pregabalin 100 mg capsule (Lyrica) 100 mg PO BID 08/07/21 08/28/21 albuterol sulfate 90 mcg/actuation 0 mcg INHALATION 09/17/21 aerosol inhaler (Ventolin HFA) insulin glargine 100 unit/mL (3 7 unit SUBCUT DAILY 09/17/21 mL) subcutaneous pen (Lantus Solostar U-100 Insulin) pen needle, diabetic 31 gauge x #1200 ea 09/17/2109/21 (BD Ultra-Fine Short Pen Needle) Previous Rx's Medication Instructions Recorded hydrocortisone 2.5 % topical cream 1 applic TOPICAL DAILY PRN 30 Days 03/18/20 #20 g meclizine 12.5 mg tablet 25 mg PO DAILY PRN #60 tab 06/15/20 aspirin 81 mg tablet,delayed 81 mg PO DAILY #90 tab 10/07/20 release fluticasone propionate 220 1 puff PO BID 90 Days #12 g 10/15/20 mcg/actuation HFA aerosol inhaler (Flovent HFA) venlafaxine 150 mg tablet,extended 150 mg PO DAILY 90 Days #90 tab 10/30/20 release 24 hr alcohol swabs (Alcohol Prep Pads) 1 pad TOPICAL QID #100 ea 11/13/20 blood sugar diagnostic (FreeStyle #100 ea 11/13/20 Lite Strips) calcium carbonate 600 mg calcium 600 mg PO BID 30 Days #60 tab 11/13/20 (1,500 mg) tablet lancets 28 gauge (FreeStyle #100 ea 11/13/20 Lancets) pen needle, diabetic 32 gauge x #50 ea 11/13/20 (BD Ultra-Fine Guerda Pen Needle) albuterol sulfate 2.5 mg (3 mL) INHALATION TID 30 11/16/20 Days #270 ml acetaminophen 650 mg 650 mg PO Q8H PRN #90 tab 11/24/20 tablet,extended release (Mapap Arthritis Pain) tramadol 50 mg tablet 50 mg PO BID PRN 30 Days #60 tab 11/26/20 loratadine 10 mg tablet 10 mg PO DAILY 90 Days #90 tab 01/12/21 amlodipine 5 mg tablet 5 mg PO DAILY #90 tab 02/02/21 lisinopril 30 mg tablet 30 mg PO DAILY 90 Days #90 tab 02/02/21 hydroxyzine HCl 10 mg tablet 10 mg PO TID PRN 30 Days #30 tab 02/24/21 methylcellulose (laxative) 500 mg 1,000 mg PO DAILY 30 Days #60 tab 04/08/21 tablet (Citrucel) methylcellulose (laxative) 500 mg 500 mg PO DAILY #30 tab 06/08/21 tablet (Fiber Therapy (methylcellulose)) dulaglutide 1.5 mg/0.5 mL 1.5 mg (0.5 mL) SUBCUT QWEEK 30 06/24/21 subcutaneous pen injector Days #2.5 ml empagliflozin 12.5 mg-metformin 1 tab PO BID 30 Days #60 tab 06/24/21 1,000 mg tablet (Synjardy) montelukast 10 mg tablet 10 mg PO DAILY #90 tab 08/18/21 oxybutynin chloride 10 mg 10 mg PO DAILY 90 Days #90 tab 08/18/21 tablet,extended release 24 hr dicyclomine 20 mg tablet 20 mg PO TID #270 tab 09/17/21 [id number] 1 cap PO QID 30 Days #120 cap 09/17/21 24,000-76,000-120,000 unit capsule,delayed rel (Creon) pantoprazole 40 mg tablet,delayed 40 mg PO DAILY 90 Days #90 tab 09/17/21 release simethicone 180 mg capsule 180 mg PO TID 30 Days #90 cap 09/17/21 sucralfate 1 gram tablet 2 g PO DAILY #180 tab 09/17/21 Allergies Allergy/AdvReac Type Severity Reaction Status Date / Time No Known Allergies Allergy Verified 09/27/21 09:41 [No Known Allergies*] Review of Systems Constitutional: Constitutional: Reports no additional constitutional complaints, Denies chills, Denies fever(s) and Denies night sweats Eyes: Eyes: Reports no additional eye complaints, Denies blurry vision, Denies change in vision, Denies diplopia, Denies eye discharge, Denies loss of vision and Denies eye pain ENT: Denies dizziness Cardiovascular: Cardiovascular: Reports no additional cardiovascular complaints, Denies chest pain, Denies lightheadedness, Denies Loss of Consciousness and Denies dyspnea Respiratory: Respiratory: Reports no additional respiratory complaints and Denies dyspnea Gastrointestinal: Gastrointestinal: Reports no additional gastrointestinal complaints, Denies abdominal pain, Denies melena, Denies hematochezia, Denies change in bowel habits, Denies change in stool character, Reports diarrhea, Reports nausea and Reports vomiting Genitourinary: Genitourinary: Denies hematuria, Denies urinary frequency, Denies dysuria, Denies urinary incontinence, Denies urinary hesitancy and Denies urinary urgency Musculoskeletal: Musculoskeletal: Reports no additional musculoskeletal complaints, Denies numbness and Denies tingling Neurologic: Denies dizziness, Denies loss of vision, Denies numbness and Denies tingling Comments: dizziness Psychiatric: Psychiatric: Reports no additional psychiatric complaints Endocrine: Endocrine: Reports no additional endocrine complaints Hematologic/Lymphatic: Hematologic/Lymphatic: Reports no additional hematologic/lymphatic complaints Allergic/Immunologic: Allergic/Immunologic: Reports no additional allergic/immunologic complaints PMFSH Past Medical History Attestation statement: The following information was validated with the patient. 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 Lumbar spondylosis Mild recurrent major depression Moderate asthma Muscle weakness Osteopenia Polyarthralgia Polyarthralgia Urge urinary incontinence Vertigo Surgical History History of esophagogastroduodenoscopy (EGD) History of surgery on extremity History of tubal ligation Hx of colonoscopy S/P SHERRY-BSO (total abdominal hysterectomy and bilateral salpingo-oophorectomy) Family History Family History Father Hypertension Mother Cancer Sister Breast cancer Social History Social History Household Members: Significant Other Housing: House Alcohol intake: never Patient Tobacco Use Status: Never used Tobacco e-Cigarette/Vaping Use: Never Used Second Hand Smoke Exposure: No Advance Directives: No Advance Directives Information Provided: No service: No Current occupational status: disabled Physical Exam ED Vital Signs: Vital Signs - 24 hr 09/27/21 09:42 09/27/21 13:00 Temperature 98.3 F Pulse Rate 66 72 Respiratory Rate 18 18 Blood Pressure 122/70 150/73 H Pulse Oximetry 95 96 BMI result Body Mass Index 30.9 Const General: cooperative, no acute distress, alert and awake Nutritional Appearance: well nourished Orientation/consciousness: patient oriented x3 Limitations: no limitations [facility] Head: Yes normal to inspection and Yes atraumatic Ears: hearing grossly normal bilaterally and external ears normal General nose exam: Normal external nose present, no nasal discharge noted and no epistaxis Face and sinus: Yes normal facial exam, No abrasion and No laceration Mouth: Normal oral and palatal mucosa present, no drooling and no muffled voice Eyes General: appearance normal, both eyes and all related structures Periorbital: periorbital findings normal Eyelids: Yes eyelids normal Conjunctivae: conjunctivae normal Pupils: Equal, round and reactive pupils present EOM: EOMs intact bilaterally Neck Neck: Yes normal visual inspection, Yes full ROM and Yes no lymphadenopathy Chest Chest palpation & inspection: normal inspection of the chest Resp Effort & Inspection: normal respiratory effort and able to speak in complete sentences Auscultation: clear to auscultation bilaterally Cardio Rate: regular rate Rhythm: regular rhythm GI Inspection: Yes normal to inspection Palpation (GI): Soft to palpation, not firm, nontender, no guarding and not rigid Neuro General: patient oriented x3 and moves all extremities Cranial nerves: Yes Equal, round and reactive pupils present Cognition (Neuro): normal cognition Motor exam (neuro): 5/5 motor strength present throughout Sensory Exam: Normal double simultaneous stimulation for sensation Coordination: [id number] test normal Extrem General: Yes normal to inspection, Yes full ROM and Yes capillary refill normal Psych Appearance: grossly normal Mental Status: mental status grossly normal Affect: normal affect Attitude: cooperative Thought process: Normal thought process present Thought content: Normal thought content present Insight: Good insight present (Psych) Medical Decision Making MDM Narrative Medical decision making narrative: Patient is a 71 year old female presenting to the emergency department today with nausea, vomiting, diarrhea, and dizziness. Patient's physical exam was unremarkable. Patient's blood work was unremarkable. I explained my physical exam findings as well as all test results to the patient. I answered all questions asked by the patient. Patient received IV fluids which she stated helped her symptoms significantly. I stressed the importance of the patient taking her medication as prescribed. I stressed the importance of the patient following up with her primary care provider. I stressed the importance of the patient returning to the emergency department immediately if her symptoms were to worsen or if she were to develop any dizziness, shortness of breath, difficulty breathing, chest pain, blurry vision, loss of vision, nausea, vomiting, abdominal pain, fever, chills, back pain, or any other complaints. Patient verbalized agreement and understanding with this treatment plan and discharge. Differential Diagnosis Differential Diagnosis: gastroenteritis, viral illness Medical Records Medical records reviewed: Yes I reviewed the patient's medical records. Lab Data Lab results reviewed: Yes I reviewed the patient's lab results. Result diagrams: 09/27/21 09:53 09/27/21 09:53 Labs: Lab Results 09/27/21 09/27/21 09/27/21 Range/Units 09:53 09:53 09:53 WBC 4.6 L (4.8-10.8) X10*3/uL RBC 4.20 (4.20-5.50) X10*6/uL Hgb 11.5 L (12.0-16.0) g/dl Hct 36.7 L (37.0-47.0) % MCV 87.4 (80.0-98.0) fL MCH 27.4 (27.0-33.0) pg MCHC 31.3 (31.0-35.0) g/dl RDW 15.6 (11.0-16.0) % Plt Count 225 (160-400) X10*3/uL MPV 10.4 (9.4-12.3) fL Immature Gran % (Auto) 0.2 (0.0-0.4) % Neut % (Auto) 34.9 L (45-73) % Lymph % (Auto) 50.1 H (20-40) % Wright % (Auto) 11.4 H (2-11) % Eos % (Auto) 3.2 (0-4) % Baso % (Auto) 0.2 (0-2) % Lymph # (Auto) 2.3 (1.2-4.9) X10*3/uL Wright # (Auto) 0.5 (0.1-1.2) X10*3/uL Eos # (Auto) 0.2 (0.0-0.4) X10*3/uL Baso # (Auto) 0.0 (0.0-0.2) X10*3/uL Abs Immat Gran (auto) 0.01 (0.00-0.03) X10*3/uL Absolute Neuts (auto) 1.6 L (2.0-8.3) x10*3/uL Absolute Nucleated RBC 0.000 (0.0-0.012) X10*3/uL Nucleated RBC % (auto) 0.0 (0.0-0.2) /100WBC Sodium 139 (135-145) mmol/L Potassium 4.7 (3.3-5.1) mmol/L Chloride 105 (96-108) mmol/L Carbon Dioxide 29 (22-29) mmol/L Anion Gap 10 L (12-20) BUN 20 H D (9-16) mg/dL Creatinine 0.69 (0.5-1.4) mg/dL Estim Creat Clear Calc 75.7 Estimated GFR > 60 Random Glucose 97 (60-115) mg/dL Calcium 9.4 (8.4-10.2) mg/dL Total Bilirubin 0.4 (0.0-1.0) mg/dL AST 38 H (5-31) U/L ALT 34 H (0-31) U/L Alkaline Phosphatase 82 (39-117) U/L Total Protein 7.3 (6.5-8.0) g/dL Albumin 3.9 (3.5-5.0) g/dL COVID-19 (IGNACIO) (Negative) COVID-19 Clin Com Influenza Type A (STONE) Negative (Negative) Influenza Type B (STONE) Negative (Negative) Influenza A & B Note See Note 09/27/21 Range/Units 09:53 WBC (4.8-10.8) X10*3/uL RBC (4.20-5.50) X10*6/uL Hgb (12.0-16.0) g/dl Hct (37.0-47.0) % MCV (80.0-98.0) fL MCH (27.0-33.0) pg MCHC (31.0-35.0) g/dl RDW (11.0-16.0) % Plt Count (160-400) X10*3/uL MPV (9.4-12.3) fL Immature Gran % (Auto) (0.0-0.4) % Neut % (Auto) (45-73) % Lymph % (Auto) (20-40) % Wright % (Auto) (2-11) % Eos % (Auto) (0-4) % Baso % (Auto) (0-2) % Lymph # (Auto) (1.2-4.9) X10*3/uL Wright # (Auto) (0.1-1.2) X10*3/uL Eos # (Auto) (0.0-0.4) X10*3/uL Baso # (Auto) (0.0-0.2) X10*3/uL Abs Immat Gran (auto) (0.00-0.03) X10*3/uL Absolute Neuts (auto) (2.0-8.3) x10*3/uL Absolute Nucleated RBC (0.0-0.012) X10*3/uL Nucleated RBC % (auto) (0.0-0.2) /100WBC Sodium (135-145) mmol/L Potassium (3.3-5.1) mmol/L Chloride (96-108) mmol/L Carbon Dioxide (22-29) mmol/L Anion Gap (12-20) BUN (9-16) mg/dL Creatinine (0.5-1.4) mg/dL Estim Creat Clear Calc Estimated GFR Random Glucose (60-115) mg/dL Calcium (8.4-10.2) mg/dL Total Bilirubin (0.0-1.0) mg/dL AST (5-31) U/L ALT (0-31) U/L Alkaline Phosphatase (39-117) U/L Total Protein (6.5-8.0) g/dL Albumin (3.5-5.0) g/dL COVID-19 (IGNACIO) Negative (Negative) COVID-19 Clin Com See Note Influenza Type A (STONE) (Negative) Influenza Type B (STONE) (Negative) Influenza A & B Note Discharge Plan Discharge Clinical Impression: Gastroenteritis Patient Disposition: Home, Self-Care Instructions: Gastroenteritis (DC) Additional Instructions: Follow up with your primary care provider. Return to the emergency department immediately if your symptoms worsen or if you develop any dizziness, shortness of breath, difficulty breathing, chest pain, blurry vision, loss of vision, nausea, vomiting, abdominal pain, fever, chills, back pain, or any other complaints. Prescriptions: No Action hydrocortisone 2.5 % cream 1 applic topical DAILY PRN (Reason: rash) 30 Days Qty: 20 0RF meclizine 12.5 mg tablet 25 mg PO DAILY PRN (Reason: dizziness) Qty: 60 3RF aspirin 81 mg tablet,delayed release (DR/EC) 81 mg PO DAILY Qty: 90 3RF Flovent HFA 220 mcg/actuation HFA aerosol inhaler 1 puff PO BID 90 Days Qty: 12 6RF venlafaxine 150 mg tablet extended release 24hr 150 mg PO DAILY 90 Days Qty: 90 1RF albuterol sulfate 2.5 mg /3 mL (0.083 %) solution for nebulization 2.5 mg inhalation TID 30 Days Qty: 270 2RF acetaminophen [Mapap Arthritis Pain] 650 mg tablet extended release 650 mg PO Q8H PRN (Reason: pain) Qty: 90 3RF tramadol 50 mg tablet 50 mg PO BID PRN (Reason: pain) 30 Days Qty: 60 0RF loratadine 10 mg tablet 10 mg PO DAILY 90 Days Qty: 90 3RF lisinopril 30 mg tablet 30 mg PO DAILY 90 Days Qty: 90 1RF amlodipine 5 mg tablet 5 mg PO DAILY Qty: 90 1RF hydroxyzine HCl 10 mg tablet 10 mg PO TID PRN (Reason: itching) 30 Days Qty: 30 2RF Citrucel 500 mg tablet 1,000 mg PO DAILY 30 Days Qty: 60 3RF oxybutynin chloride 10 mg tablet extended release 24 hr 10 mg PO DAILY 90 Days Qty: 90 2RF montelukast 10 mg tablet 10 mg PO DAILY Qty: 90 3RF trazodone 50 mg tablet 25 mg PO BEDTIME PRN (Reason: Pain) 0RF Fiber Therapy (m-cellulose) 500 mg tablet 500 mg PO DAILY Qty: 30 6RF alcohol swabs [Alcohol Prep Pads] Pads, Medicated 1 pad topical QID Qty: 100 6RF (DME) FreeStyle Lite Strips Strip See Rx Instructions .ROUTE .MEDSUPPLY Qty: 100 11RF Rx Instructions: test three times a day calcium carbonate 600 mg calcium (1,500 mg) tablet 600 mg PO BID 30 Days Qty: 60 11RF (DME) lancets [FreeStyle Lancets] 28 gauge misc See Rx Instructions .ROUTE .MEDSUPPLY Qty: 100 11RF Rx Instructions: test three times a day (DME) pen needle, diabetic [BD Ultra-Fine Guerda Pen Needle] 32 gauge x 5/32 needle See Rx Instructions .ROUTE .MEDSUPPLY Qty: 50 11RF Rx Instructions: As directed pregabalin [Lyrica] 100 mg capsule 100 mg PO BID 0RF dulaglutide 1.5 mg/0.5 mL pen injector 1.5 mg subcut QWEEK 30 Days Qty: 2.5 6RF Synjardy 12.5-1,000 mg tablet 1 tab PO BID 30 Days Qty: 60 6RF albuterol sulfate [Ventolin HFA] 90 mcg/actuation HFA aerosol inhaler 0 mcg inhalation 0RF (DME) pen needle, diabetic [BD Ultra-Fine Short Pen Needle] 31 gauge x 5/16 needle See Rx Instructions ea subcut QID Qty: 1200 0RF Rx Instructions: As directed Lantus Solostar U-100 Insulin 100 unit/mL (3 mL) insulin pen 7 unit subcut DAILY 0RF Creon 24,000-76,000 -120,000 unit capsule,delayed release(DR/EC) 1 cap PO QID 30 Days Qty: 120 6RF pantoprazole 40 mg tablet,delayed release (DR/EC) 40 mg PO DAILY 90 Days Qty: 90 2RF sucralfate 1 gram tablet 2 g PO DAILY Qty: 180 2RF simethicone 180 mg capsule 180 mg PO TID 30 Days Qty: 90 6RF Rx Instructions: after meals dicyclomine 20 mg tablet 20 mg PO TID Qty: 270 2RF Referrals: Abelino Maddox MD [Primary Care Provider] - Print Language: Kyrgyz
[2021-09-27 09:42] VITALS: BP 122/70; PULSE 66; RESP 18; TEMP 36.8; O2SAT 95; BMI 30.9
[2021-09-27 09:57] LABS: Basophils Percent Auto 0.2 % (0-2); Eosinophils Absolute Auto 0.2 X10*3/uL (0.0-0.4); Eosinophils Percent Auto 3.2 % (0-4); Hematocrit 36.7 % (37.0-47.0); Hemoglobin 11.5 g/dl (12.0-16.0); Imm Gran Abs Auto 0.01 X10*3/uL (0.00-0.03); Imm Gran Pct Auto 0.2 % (0.0-0.4); Lymphocytes Absolute Auto 2.3 X10*3/uL (1.2-4.9); Lymphocytes Percent Auto 50.1 % (20-40); MANUAL DIFF FLAG NO; Mean Corpuscular HGB Conc 31.3 g/dl (31.0-35.0); Mean Corpuscular Hemoglobin 27.4 pg (27.0-33.0); Mean Corpuscular Volume 87.4 fL (80.0-98.0); Mean Platelet Volume 10.4 fL (9.4-12.3); Monocytes Absolute Auto 0.5 X10*3/uL (0.1-1.2); Monocytes Percent Auto 11.4 % (2-11); Neutrophils Absolute Auto 1.6 x10*3/uL (2.0-8.3); Neutrophils Percent Auto 34.9 % (45-73); Platelet Count 225 X10*3/uL (160-400); Red Cell Distribution Width 15.6 % (11.0-16.0); White Blood Count 4.6 X10*3/uL (4.8-10.8)
[2021-09-27] MEDS: 0.9 % Sodium Chloride 1,000 ML 999 ML IVCONT (09:57)
[2021-09-27 10:13] LABS: Alanine Aminotransferase 34 U/L (0-31); Albumin Level 3.9 g/dL (3.5-5.0); Alkaline Phosphatase 82 U/L (39-117); Anion Gap 10 (12-20); Aspartate Amino Transferase 38 U/L (5-31); Bilirubin Total 0.4 mg/dL (0.0-1.0); Blood Urea Nitrogen 20 mg/dL (9-16); Calcium 9.4 mg/dL (8.4-10.2); Carbon Dioxide 29 mmol/L (22-29); Chloride 105 mmol/L (96-108); Creatinine Clr Calc Pharmacy 75.7; Estimated Glomerular Filt Rate > 60; Glucose Random 97 mg/dL (60-115); Potassium 4.7 mmol/L (3.3-5.1); Sodium 139 mmol/L (135-145); Total Protein 7.3 g/dL (6.5-8.0)
[2021-09-27 10:15] LABS: COVID-19 Test Negative (Negative); IDNOW Serial# 16C4AD1C
[2021-09-27 10:16] LABS: Influenza A Negative (Negative); Influenza B2 Negative (Negative)
[2021-09-27] MEDS: Ondansetron ODT 4 MG TAB.RAPDIS TRANSLINGU (11:01)
[2021-09-27 13:00] VITALS: BP 150/73; PULSE 72; RESP 18; O2SAT 96
== END 2021-09-27 13:20 | disposition home or self-care (01) ==
PROVIDERS: Physician Assistant Medical; Emergency Provider Emergency Medicine; PCP Internal Medicine
DX: K52.9 Noninfective gastroenteritis and colitis, unspecified (principal); Z20.822 Contact with and (suspected) exposure to COVID-19; E11.9 Type 2 diabetes mellitus without complications; E78.5 Hyperlipidemia, unspecified; Z79.4 Long term (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; Z79.82 Long term (current) use of aspirin
CPT/HCPCS: 80053; 85025; 87502; 87635; 96360; 99284

== ENCOUNTER → 2022-03-25 11:52 | Outpatient (BNVA) | payer OTHER, SELFPAY | PROVIDERS: PCP Internal Medicine; Visit Provider Nurse Practitioner | DX: K75.81 Nonalcoholic steatohepatitis (NASH) (principal); K58.0 Irritable bowel syndrome with diarrhea; K21.9 Gastro-esophageal reflux disease without esophagitis; R10.13 Epigastric pain; R14.0 Abdominal distension (gaseous); E11.42 Type 2 diabetes mellitus with diabetic 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; I10 Essential (primary) hypertension; Z80.0 Family history of malignant neoplasm of digestive organs | CPT/HCPCS: 99212 ==

== ENCOUNTER 2022-04-26 15:08 | Outpatient (REF) | payer OTHER, SELFPAY ==
--- NOTE | ~2022-04-26 | CT_ITS ---
EXAMINATION: CT ABDOMEN AND PELVIS WITH CONTRAST CLINICAL INFORMATION: Left lower quadrant pain COMPARISON: 08/16/2018 TECHNIQUE: Multidetector volumetric images were obtained from the superior aspect of the liver through the pubic symphysis following administration 85 mL of Omnipaque 350 intravenous contrast. Sagittal and coronal reformatted images were obtained on the technologist's workstation. Oral contrast: Yes This CT examination was performed using dose optimization techniques as appropriate, variously including the following: *Automated exposure control *Adjustment of mA and/or kV according to patient size (this includes techniques or standardized protocols for targeted exams where dose is matched to indication/reason for exam; i.e. extremities or head) *Use of iterative reconstruction technique DLP: 384 mGy-cm FINDINGS: LUNG BASES: The visualized lung bases are clear . Calcified hilar lymph nodes are noted, suggesting prior granulomatous disease.. LIVER, GALLBLADDER, AND BILIARY TREE: The liver is normal in size, shape, and attenuation. No focal hepatic lesion or biliary ductal dilatation is present. The gallbladder is unremarkable with no evidence of radiopaque gallstones, gallbladder wall thickening, or obvious pericholecystic inflammatory changes. PANCREAS: Unremarkable. SPLEEN: Normal size spleen. Calcified granuloma noted. ADRENAL GLANDS: Unremarkable. KIDNEYS AND URETERS: The kidneys are normal in size, shape, and attenuation. No hydronephrosis, hydroureter, or calculi seen. No perinephric stranding. BLADDER: Unremarkable. GASTROINTESTINAL TRACT: The stomach is unremarkable. Normal caliber small bowel. There is no obstruction. Contrast extends through much of the small bowel. No colonic wall thickening or acute inflammatory change. There is colonic diverticulosis which is greatest at the sigmoid colon. No diverticulitis. Mild diffuse colonic stool burden. No free air or free fluid. ABDOMINAL WALL: No significant hernia is appreciated. LYMPH NODES: Normal. VASCULAR: Normal caliber aorta with minimal atherosclerotic calcification. PELVIC VISCERA: Uterus not seen. No adnexal mass. Multiple pelvic phleboliths. OSSEOUS STRUCTURES: No acute or suspicious osseous abnormality. Mild degenerative change throughout the spine. CT/CT abdomen pelvis w IV con IMPRESSION: No acute findings of the abdomen or pelvis. Colonic diverticulosis without diverticulitis. Mild diffuse colonic stool burden. Fleischner guidelines were followed.
[2022-04-26] MEDS: Barium Sulfate Oral (Vanilla) 450 ML ORAL.SUSP 900 ML PO (17:14)
[2022-04-26] MEDS: iohexoL 350 MG/ML 100 ML INFUS..BTL IV (17:14)
[2022-04-27 08:53] LABS: Creatinine POC 0.7 mg/dL (0.5-1.4); GFR POC > 60
== END 2022-04-26 15:09 | disposition home or self-care (01) ==
LOC: HO.CT 15:08
PROVIDERS: PCP Internal Medicine; Visit Provider Internal Medicine
DX: R10.32 Left lower quadrant pain (principal)
CPT/HCPCS: 74177; 82565; Q9967

== ENCOUNTER 2022-07-15 09:35 | Outpatient (REF) | payer OTHER, SELFPAY ==
--- NOTE | ~2022-07-15 | MM_ITS ---
EXAMINATION: MM SCREENING DIGITAL BREAST TOMOSYNTHESIS, BILATERAL CLINICAL INFORMATION: Screening. Asymptomatic. The lifetime risk of breast cancer based on the Tyrer-Cuzick Model is 3.8%. COMPARISON: Mammography: September 12, 2021 and studies dating back to March 25, 2016 TECHNIQUE: Digital breast tomosynthesis is performed in both the craniocaudal and mediolateral oblique views along with computer-aided detection (CAD). Synthesized 2D images are generated from the tomosynthesis. FINDINGS: There are scattered areas of fibroglandular density (ACR BI-RADS breast composition Category b). There are no significant masses, abnormal calcifications, or other abnormalities. MM/MM tomosynthesis screening BI IMPRESSION: No significant changes ASSESSMENT: BI-RADS 1: Negative RECOMMENDATION: Routine annual mammography screening. This patient's information was entered into a reminder system with a target due date for their next mammogram.
== END 2022-07-15 09:36 | disposition home or self-care (01) ==
LOC: HO.MAMMO 09:35
PROVIDERS: Visit Provider Internal Medicine
DX: Z12.31 Encounter for screening mammogram for malignant neoplasm of breast (principal)
CPT/HCPCS: 77063; 77067

== ENCOUNTER 2022-07-29 11:15 | Outpatient (REF) | payer OTHER, SELFPAY ==
--- NOTE | ~2022-07-29 | XR_ITS ---
EXAMINATION: XR CERVICAL SPINE CLINICAL INFORMATION: Fall, pain COMPARISON: Cervical radiographs 11/23/2020, 07/11/2017 TECHNIQUE: 3 views of the cervical spine were obtained. FINDINGS: The vertebral bodies are normal in height. There is no visible fracture or vertebral compression. No destructive process or prevertebral soft tissue swelling. The odontoid appears intact. Degenerative changes are again noted with bridging anterior osteophytes C4-C7. No significant disc narrowing. No perched facet. XR/XR cervical spine 2V IMPRESSION: -No visible fracture or vertebral compression, or prevertebral soft tissue swelling. -Degenerative changes with bridging anterior osteophytes C4-C7.
== END 2022-07-29 11:16 | disposition home or self-care (01) ==
LOC: HO.HMGCX 11:15
PROVIDERS: PCP Internal Medicine; Visit Provider Internal Medicine
DX: M54.2 Cervicalgia (principal); Z91.81 History of falling
CPT/HCPCS: 72040

== ENCOUNTER → 2022-08-02 09:06 | Outpatient (BNVA) | payer OTHER, SELFPAY | PROVIDERS: PCP Internal Medicine; Visit Provider Urology | DX: R35.0 Frequency of micturition (principal); R39.15 Urgency of urination; R35.1 Nocturia; R32 Unspecified urinary incontinence; N32.81 Overactive bladder; E11.9 Type 2 diabetes mellitus without complications | CPT/HCPCS: 51798; 99202 ==

== ENCOUNTER → 2022-08-10 12:04 | Outpatient (BNVA) | payer OTHER, SELFPAY | PROVIDERS: PCP Internal Medicine; Visit Provider Nurse Practitioner Family | DX: E11.42 Type 2 diabetes mellitus with diabetic 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 (principal); M19.041 Primary osteoarthritis, right hand; M19.042 Primary osteoarthritis, left hand | CPT/HCPCS: 99212 ==

== ENCOUNTER 2022-08-19 08:26 | Outpatient (REF) | payer OTHER, SELFPAY ==
[2022-08-19 09:24] LABS: MANUAL DIFF FLAG NO
[2022-08-19 09:50] LABS: Basophils Percent Auto 0.7 % (0-2); Eosinophils Absolute Auto 0.2 X10*3/uL (0.0-0.4); Eosinophils Percent Auto 3.3 % (0-4); Hematocrit 37.6 % (37.0-47.0); Hemoglobin 12.1 g/dl (12.0-16.0); Imm Gran Abs Auto 0.01 X10*3/uL (0.00-0.03); Imm Gran Pct Auto 0.2 % (0.0-0.4); Lymphocytes Absolute Auto 2.2 X10*3/uL (1.2-4.9); Lymphocytes Percent Auto 35.2 % (20-40); Mean Corpuscular HGB Conc 32.2 g/dl (31.0-35.0); Mean Corpuscular Hemoglobin 28.2 pg (27.0-33.0); Mean Corpuscular Volume 87.6 fL (80.0-98.0); Mean Platelet Volume 10.9 fL (9.4-12.3); Monocytes Absolute Auto 0.6 X10*3/uL (0.1-1.2); Monocytes Percent Auto 9.2 % (2-11); Neutrophils Absolute Auto 3.2 x10*3/uL (2.0-8.3); Neutrophils Percent Auto 51.4 % (45-73); Platelet Count 256 X10*3/uL (160-400); Red Blood Count 4.29 X10*6/uL (4.20-5.50); Red Cell Distribution Width 15.5 % (11.0-16.0); White Blood Count 6.1 X10*3/uL (4.8-10.8)
[2022-08-19 10:12] LABS: Alanine Aminotransferase 32 U/L (0-31); Albumin Level 4.1 g/dL (3.5-5.0); Alkaline Phosphatase 84 U/L (39-117); Anion Gap 14 (12-20); Aspartate Amino Transferase 27 U/L (5-31); Bilirubin Total 0.6 mg/dL (0.0-1.0); Blood Urea Nitrogen 19 mg/dL (9-16); Calcium 9.8 mg/dL (8.4-10.2); Carbon Dioxide 27 mmol/L (22-29); Chloride 104 mmol/L (96-108); Estimated Glomerular Filt Rate > 60; Glucose Random 100 mg/dL (60-115); Potassium 4.5 mmol/L (3.3-5.1); Sodium 140 mmol/L (135-145); Total Protein 7.2 g/dL (6.5-8.0)
[2022-08-23 13:28] LABS: Alpha Fetoprotein 5.8 ng/mL
== END 2022-08-19 08:27 | disposition home or self-care (01) ==
LOC: HO.LAB 08:26
PROVIDERS: PCP Internal Medicine; Referring Provider Internal Medicine; Visit Provider Nurse Practitioner
DX: Z01.818 Encounter for other preprocedural examination (principal); K58.0 Irritable bowel syndrome with diarrhea; K21.9 Gastro-esophageal reflux disease without esophagitis; K75.81 Nonalcoholic steatohepatitis (NASH); Z80.0 Family history of malignant neoplasm of digestive organs
CPT/HCPCS: 36415; 80053; 82105; 85025; 99212

== ENCOUNTER 2022-12-06 11:00 | Outpatient (RCR) | payer OTHER, SELFPAY | END 2022-12-31 10:46 | disposition home or self-care (01) | LOC: HO.PT 11:00 | PROVIDERS: PCP Internal Medicine; Visit Provider Internal Medicine | DX: R53.1 Weakness (principal) | CPT/HCPCS: 97110; 97162 ==

== ENCOUNTER 2022-12-27 07:36 | Day surgery (SDC) | payer OTHER, SELFPAY ==
[2022-12-23 11:18] VITALS: BMI 29.5
--- NOTE | 2022-12-27 08:34 | P.HPSUR_ITS ---
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 Lumbar spondylosis Mild recurrent major depression Mode) History of Previous Operations: Relevant previous surgery/procedure and date(s) (History of esophagogastroduodenoscopy (EGD) History of surgery on extremity History of tubal ligation Hx of colonoscopy S/P SHERRY-BSO (total abdominal hysterectomy and bilateral salpingo-oophorectomy)) Allergies: Allergies Allergy/AdvReac Type Severity Reaction Status Date / Time No Known Allergies Allergy Verified 08/19/22 08:37 [No Known Allergies*] Review of Systems Sugical H&P ROS: Negative: Constitution, Cardiovascular, Respiratory and Gastrointestinal Exam Surgical H&P Exam: Normal: Heart, Normal: Lungs, Normal: Extremities and Normal: Abdomen Plan Diagnosis/Plan: Unchanged I have reviewed the history and physical and performed a pertinent physical examination on my patient. No changes have occurred unless specified. Time Spent With Patient Time: Total time managing care of this patient today ____ minutes.
[2022-12-27 08:56] VITALS: BP 155/74; PULSE 72; RESP 18; TEMP 36.6; O2SAT 97
--- NOTE | 2022-12-27 09:07 | PC.NURSE ---
report given to pool peña rn at 0900
[2022-12-27 09:14] LABS: Glucose, Whole Blood 72 mg/dL (60-115)
--- NOTE | 2022-12-27 09:18 | P.CONAN_ITS ---
[facility] Active Problems Active Problems: All Active Problems (Updated 08/25/22 @ 09:44 by SAPPHIRE Travis) Asthma (Acute) Pre-op examination (Acute) Osteoarthritis of hands, bilateral (Acute) Urinary incontinence (Acute) Nocturia (Acute) OAB (overactive bladder) (Acute) Urinary urgency (Acute) Urinary frequency (Acute) Cervicalgia (Acute) Fall (Acute) GERD (gastroesophageal reflux disease) (Acute) Abdominal bloating (Acute) Irritable bowel syndrome with diarrhea (Acute) Epigastric pain (Acute) Abdominal bloating (Acute) Elevated aldolase level (Acute) Family history of colon cancer (Acute) POST (nonalcoholic steatohepatitis) (Acute) Bilateral hand pain (Acute) Cervical spondylitis (Acute) Lumbar spondylosis (Acute) Polyarthralgia (Acute) Mild recurrent major depression (Acute) Muscle weakness (Acute) Dyslipidemia (Acute) Elevated CPK (Acute) Osteopenia (Acute) Diabetic 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 associated with type 2 diabetes mellitus (Acute) skilled nursing (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 (Acute) Diabetes type 2, controlled (Acute) Lab test positive for detection of COVID-19 virus (Acute) Urge urinary incontinence (Acute) Moderate asthma (Acute) Vertigo (Acute) Polyarthralgia (Acute) Depression with anxiety (Acute) Essential hypertension (Acute) Diabetes mellitus (Acute) Past Medical History Medical History Cervical spondylitis COVID-19 vaccine series completed Depression with anxiety Diabetes mellitus Diabetes type 2, controlled Diabetic 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 associated with type 2 diabetes mellitus Dyslipidemia Elevated CPK Essential hypertension Lab test positive for detection of COVID-19 virus skilled nursing (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 Lumbar spondylosis Mild recurrent major depression Moderate asthma Muscle weakness Osteopenia Polyarthralgia Polyarthralgia Urge urinary incontinence Vertigo Family History Family History Father Hypertension Mother Cancer Sister Breast cancer Family history of problems with anesthesia: No Surgical History Surgical History History of esophagogastroduodenoscopy (EGD) History of surgery on extremity History of tubal ligation Hx of colonoscopy S/P SHERRY-BSO (total abdominal hysterectomy and bilateral salpingo-oophorectomy) History of Problems with Anesthesia: No Social History Social History Household Members: Significant Other Housing: House Alcohol intake: never Patient Tobacco Use Status: Never used Tobacco e-Cigarette/Vaping Use: Never Used Second Hand Smoke Exposure: No Advance Directives: No Advance Directives Information Provided: Yes service: No Current occupational status: disabled Meds Allergies Allergy/AdvReac Type Severity Reaction Status Date / Time No Known Allergies Allergy Verified 08/19/22 08:37 [No Known Allergies*] Home Medications Medication Instructions Recorded Confirmed Last Taken Type trazodone 50 mg tablet 25 mg PO BEDTIME PRN Pain 07/08/20 08/02/22 Unknown History pregabalin 100 mg capsule (Lyrica) 100 mg PO BID 08/07/21 08/02/22 Unknown History albuterol sulfate 90 mcg/actuation 0 mcg inhalation 09/17/21 08/02/22 Unknown History aerosol inhaler (Ventolin HFA) insulin glargine 100 unit/mL (3 7 unit subcut DAILY 09/17/21 08/02/22 Unknown History mL) subcutaneous pen (Lantus Solostar U-100 Insulin) pen needle, diabetic 31 gauge x #1,200 ea 09/17/21 08/02/22 Unknown History 5/16 (BD Ultra-Fine Short Pen Needle) meclizine 25 mg tablet 25 mg PO BID PRN 03/25/22 08/02/22 Unknown History polymyxin B sulfate 10,000 ml ophthalmic (eye) 03/25/22 08/02/22 Unknown History unit-trimethoprim 1 mg/mL eye drops venlafaxine 37.5 mg 37.5 mg PO DAILY depressive 08/10/22 Unknown History capsule,extended release 24 hr disorder Exam Exam Date and Time: December 27, 2022 0918 Height,Weight and Vital Signs: Height 5 ft 3 in Weight 75.6 kg Last Vital Signs Temp 97.9 F 12/27/22 08:56 Pulse 72 12/27/22 08:56 Resp 18 12/27/22 08:56 BP 155/74 H 12/27/22 08:56 Pulse Ox 97 12/27/22 08:56 O2 Del Method Room Air 12/27/22 08:56 Pertinent Lab Results Pertinent Lab Results: Laboratory Tests 12/27/22 08:55 POC Glucose 72 Airway Mallampati Class: II TM Dist: >3cm Neck ROM: Full Denture: Upper and Lower Heart: rrr Lungs: cta Assessment and Plan Assessment Anesthesia Assessment: Anesthesia Plan Discussed and Chart Reviewed Final Anesthetic Review Family History of Problems with Anesthesia: No History of Problems with Anesthesia: No NPO: Yes ASA Class: III Final Preanesthetic Review: No Changes in Pt Med Stat, Meds/Allgs Chart Reviewed and Consent Obtained/Reviewed Patient Risk: Intermediate Procedure Risk: Intermediate Anesthetic Plan Anesthetic Plan: MAC: Disposition: Standard PACU
[2022-12-27 09:20] VITALS: BP 155/74; PULSE 72; RESP 18; TEMP 36.6; O2SAT 97; BMI 29.9
--- NOTE | 2022-12-27 09:21 | W.PM.OPN ---
Operative Note Operative Note Date of Service: 12/27/22 Narrative: COLONOSCOPY TILL MID TRANSVERSE COLON WITH BIOPSIES Pre-op diagnosis: colon cancer screening, IBS with diarrhea Post-op diagnosis:? diverticulosis, hemorrhoids, incomplete colonoscopy due to poor prep Endoscopist:? Elva Nicole MD Anesthesia:?MAC Consent: Indications for the procedure and potential complications of bleeding, perforation, reaction to medications and missed diagnosis were discussed with the patient and informed consent was obtained. Instrument: Olympus PCF H 190 L variable stiffness pediatric colonoscope Monitoring: Vital signs and clinical assessment, intermittent blood pressure monitoring, continuous EKG monitoring, Pulse oximetry and Carbon Dioxide monitoring were done throughout the procedure. Please see anesthesia flowsheet. Procedure: The patient was placed in the left lateral decubitis position and pre-procedure medications were administered. After a digital rectal examination of the ano-rectum, the video colonoscope was inserted into the rectum and advanced through the colon to the mid transverse colon. It was not possible to advanced further due to solid stools blocking the lumen. The colonoscope was slowly withdrawn in a retrograde panoramic fashion and the colon mucosa was carefully examined including a retroflexed view of the rectum. Findings and interventions are described below. Procedure Difficulty: There was narrowing in the left colon due to severe diverticulosis which was navigated with some difficulty Findings: Terminal Ileum: Not evaluated Cecum: Not evaluated Ascending Colon: Not evaluated Transverse Colon: Partially evaluated due to poor prep Descending Colon: Moderate diverticulosis Sigmoid Colon: Moderate diverticulosis Rectum: Normal Ano-rectum: Moderate internal hemorrhoids Colon preparation: Fair to poor - with presence of solid stools and undigested vegetable matter in the right and proximal transverse colon which could not be suctioned Impression and Post Procedure Diagnosis: Colonoscopy Findings: No polyps were detected Moderate diverticulosis seen in the left colon Moderate hemorrhoids on retroflexed exam. Plan: Patient has an appointment on 01/18/23 in the [facility] with Doretha Andres NP. Consider obtaining a stool Cologuard or a FIT test since this the 2nd attempt at colonoscopy and pt continues to have sub-optimal prep. She admitted to having mashed potatoes a 12 pm yesterday. Repeat Colonoscopy interval based on results of stool test. Above findings were reviewed with the patient and diverticulosis handout was given in the discharge area
[2022-12-27 10:06] VITALS: BP 107/72; PULSE 68; RESP 15; TEMP 36.2; O2SAT 96
[2022-12-27 10:21] VITALS: BP 100/64; PULSE 61; RESP 16; TEMP 36.6; O2SAT 97
[2022-12-27 10:21] LABS: Glucose, Whole Blood 85 mg/dL (60-115)
== END 2022-12-27 10:40 | disposition home or self-care (01) ==
PROVIDERS: PCP Internal Medicine; Visit Provider Internal Medicine Gastroenterology
PROC: 0DJD8ZZ Inspection of Lower Intestinal Tract, Via Natural or Artificial Opening Endoscopic (ICD-10-PCS; CPT 45378; principal; 2022-12-27 09:20)
DX: Z12.11 Encounter for screening for malignant neoplasm of colon (principal); K57.30 Diverticulosis of large intestine without perforation or abscess without bleeding; K64.8 Other hemorrhoids; Z80.0 Family history of malignant neoplasm of digestive organs; E11.9 Type 2 diabetes mellitus without complications; I10 Essential (primary) hypertension; E78.5 Hyperlipidemia, unspecified; K75.81 Nonalcoholic steatohepatitis (NASH); K21.9 Gastro-esophageal reflux disease without esophagitis; K58.0 Irritable bowel syndrome with diarrhea; R14.0 Abdominal distension (gaseous)
CPT/HCPCS: G0105; 82947; 88305

== ENCOUNTER → 2022-12-27 07:36 | Outpatient (BNV) | payer OTHER, SELFPAY | PROVIDERS: PCP Internal Medicine; Visit Provider Internal Medicine Gastroenterology | DX: Z12.11 Encounter for screening for malignant neoplasm of colon (principal); K58.0 Irritable bowel syndrome with diarrhea; Z91.198 Patient's noncompliance with other medical treatment and regimen for other reason; K57.30 Diverticulosis of large intestine without perforation or abscess without bleeding; K64.8 Other hemorrhoids | CPT/HCPCS: 45378 ==

== ENCOUNTER 2023-01-03 12:43 | Emergency (ER) | payer OTHER, SELFPAY ==
[2023-01-03 12:50] VITALS: BP 143/70; PULSE 85; RESP 16; TEMP 36.9; O2SAT 95; BMI 28.6
--- NOTE | 2023-01-03 12:52 | ED.GENADULT ---
HPI - General Adult General Chief complaint: General Medical Stated complaint: back and neck pain Related Data Home Medications Medication Instructions Recorded Confirmed trazodone 50 mg tablet 25 mg PO BEDTIME PRN Pain 07/08/20 08/02/22 pregabalin 100 mg capsule (Lyrica) 100 mg PO BID 08/07/21 08/02/22 albuterol sulfate 90 mcg/actuation 0 mcg inhalation 09/17/21 08/02/22 aerosol inhaler (Ventolin HFA) insulin glargine 100 unit/mL (3 7 unit subcut DAILY 09/17/21 08/02/22 mL) subcutaneous pen (Lantus Solostar U-100 Insulin) pen needle, diabetic 31 gauge x #1,200 ea 09/17/21 08/02/2209/21 (BD Ultra-Fine Short Pen Needle) meclizine 25 mg tablet 25 mg PO BID PRN 03/25/22 08/02/22 polymyxin B sulfate 10,000 ml ophthalmic (eye) 03/25/22 08/02/22 unit-trimethoprim 1 mg/mL eye drops venlafaxine 37.5 mg 37.5 mg PO DAILY depressive 08/10/22 capsule,extended release 24 hr disorder Previous Rx's Medication Instructions Recorded hydrocortisone 2.5 % topical cream 1 applic topical DAILY PRN rash 30 03/18/20 days #20 grams fluticasone propionate 220 1 puff PO BID 90 days #12 grams 10/15/20 mcg/actuation HFA aerosol inhaler (Flovent HFA) alcohol swabs (Alcohol Prep Pads) 1 pad topical QID e11.40 0 days 11/13/20 #100 ea blood sugar diagnostic (FreeStyle #100 ea 11/13/20 Lite Strips) calcium carbonate 600 mg calcium 600 mg PO BID 30 days #60 tabs 11/13/20 (1,500 mg) tablet lancets 28 gauge (FreeStyle #100 ea 11/13/20 Lancets) pen needle, diabetic 32 gauge x #50 ea 11/13/20 (BD Ultra-Fine Guerda Pen Needle) albuterol sulfate 2.5 mg/3 mL 2.5 mg (3 mL) inhalation TID 30 11/16/20 (0.083 %) solution for nebulization days #270 mL tramadol 50 mg tablet 50 mg PO BID PRN pain 30 days #60 11/26/20 tabs loratadine 10 mg tablet 10 mg PO DAILY 90 days #90 tabs 01/12/21 amlodipine 5 mg tablet 5 mg PO DAILY #90 tabs 02/02/21 lisinopril 30 mg tablet 30 mg PO DAILY 90 days #90 tabs 02/02/21 hydroxyzine HCl 10 mg tablet 10 mg PO TID PRN itching 30 days 02/24/21 #30 tabs dulaglutide 1.5 mg/0.5 mL 1.5 mg (0.5 mL) subcut QWEEK 30 06/24/21 subcutaneous pen injector days #2.5 mL montelukast 10 mg tablet 10 mg PO DAILY #90 tabs 08/18/21 aspirin 81 mg tablet,delayed 81 mg PO DAILY #90 tabs 11/06/21 release acetaminophen 650 mg 650 mg PO Q12H PRN pain #60 tabs 12/30/21 tablet,extended release (Mapap Arthritis Pain) empagliflozin 12.5 mg-metformin 1 tab PO BID #60 tabs 06/15/22 1,000 mg tablet (Synjardy) cyclobenzaprine 5 mg tablet 5 mg PO BEDTIME 14 days #14 tabs 07/29/22 oxybutynin chloride 10 mg 10 mg PO DAILY 90 days #90 tabs 08/02/22 tablet,extended release 24 hr sod picosulf 10 mg-magnes 3.5 160 ml PO DAILY 2 doses #320 mL 08/19/22 gram-citric 12 gram/160 mL oral solution (Clenpiq) eluxadoline 75 mg tablet (Viberzi) 75 mg PO BID #60 tabs 12/02/22 methylcellulose (laxative) 500 mg 1,000 mg PO DAILY 30 days #60 tabs 12/02/22 tablet (Citrucel) pantoprazole 40 mg tablet,delayed 40 mg PO DAILY 90 days #90 tabs 12/02/22 release simethicone 180 mg capsule 180 mg PO TID 30 days #90 caps 12/02/22 Allergies Allergy/AdvReac Type Severity Reaction Status Date / Time No Known Allergies Allergy Verified 01/03/23 12:55 [No Known Allergies*] PMFSH Past Medical History Medical History Cervical spondylitis COVID-19 vaccine series completed Depression with anxiety Diabetes mellitus Diabetes type 2, controlled Diabetic 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 associated with type 2 diabetes mellitus Dyslipidemia Elevated CPK Essential hypertension 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 Lumbar spondylosis Mild recurrent major depression Moderate asthma Muscle weakness Osteopenia Polyarthralgia Polyarthralgia Urge urinary incontinence Vertigo Surgical History History of esophagogastroduodenoscopy (EGD) History of surgery on extremity History of tubal ligation Hx of colonoscopy S/P SHERRY-BSO (total abdominal hysterectomy and bilateral salpingo-oophorectomy) Family History Family History Father Hypertension Mother Cancer Sister Breast cancer Social History Social History Household Members: Significant Other Housing: House Alcohol intake: never Patient Tobacco Use Status: Never used Tobacco e-Cigarette/Vaping Use: Never Used Second Hand Smoke Exposure: No Advance Directives: No Advance Directives Information Provided: Yes service: No Current occupational status: disabled Physical Exam ED Vital Signs: BMI result Body Mass Index 28.6 Course Course Course Narrative: This is an RME: Additional HPI, ROS, PE not included below will be deferred to primary provider. 72 year old female presenting with atraumatic bilateral flank pain radiating down the leg. Denies urinary symptoms. No recent falls. Pain is 10/10. Discharge Plan Discharge Clinical Impression: Eloped from emergency department Patient Disposition: Elopement Prescriptions: No Action hydrocortisone 2.5 % cream 1 applic topical DAILY PRN (Reason: rash) 30 Days Qty: 20 0RF Flovent HFA 220 mcg/actuation HFA aerosol inhaler 1 puff PO BID 90 Days Qty: 12 6RF albuterol sulfate 2.5 mg /3 mL (0.083 %) solution for nebulization 2.5 mg inhalation TID 30 Days Qty: 270 2RF tramadol 50 mg tablet 50 mg PO BID PRN (Reason: pain) 30 Days Qty: 60 0RF loratadine 10 mg tablet 10 mg PO DAILY 90 Days Qty: 90 3RF lisinopril 30 mg tablet 30 mg PO DAILY 90 Days Qty: 90 1RF amlodipine 5 mg tablet 5 mg PO DAILY Qty: 90 1RF hydroxyzine HCl 10 mg tablet 10 mg PO TID PRN (Reason: itching) 30 Days Qty: 30 2RF montelukast 10 mg tablet 10 mg PO DAILY Qty: 90 3RF aspirin 81 mg tablet,delayed release (DR/EC) 81 mg PO DAILY Qty: 90 3RF acetaminophen [Mapap Arthritis Pain] 650 mg tablet extended release 650 mg PO Q12H PRN (Reason: pain) Qty: 60 1RF Synjardy 12.5-1,000 mg tablet 1 tab PO BID Qty: 60 6RF simethicone 180 mg capsule 180 mg PO TID 30 Days Qty: 90 6RF Rx Instructions: after meals pantoprazole 40 mg tablet,delayed release (DR/EC) 40 mg PO DAILY 90 Days Qty: 90 2RF Citrucel 500 mg tablet 1,000 mg PO DAILY 30 Days Qty: 60 3RF Viberzi 75 mg tablet 75 mg PO BID Qty: 60 3RF Rx Instructions: must administer with a meal/food cyclobenzaprine 5 mg tablet 5 mg PO BEDTIME 14 Days Qty: 14 0RF trazodone 50 mg tablet 25 mg PO BEDTIME PRN (Reason: Pain) alcohol swabs [Alcohol Prep Pads] Pads, Medicated 1 pad topical QID Qty: 100 6RF (DME) FreeStyle Lite Strips Strip See Rx Instructions .ROUTE .MEDSUPPLY Qty: 100 11RF Rx Instructions: test three times a day calcium carbonate 600 mg calcium (1,500 mg) tablet 600 mg PO BID 30 Days Qty: 60 11RF (DME) lancets [FreeStyle Lancets] 28 gauge misc See Rx Instructions .ROUTE .MEDSUPPLY Qty: 100 11RF Rx Instructions: test three times a day (DME) pen needle, diabetic [BD Ultra-Fine Guerda Pen Needle] 32 gauge x 5/32 needle See Rx Instructions .ROUTE .MEDSUPPLY Qty: 50 11RF Rx Instructions: As directed pregabalin [Lyrica] 100 mg capsule 100 mg PO BID meclizine 25 mg tablet 25 mg PO BID PRN polymyxin B sulf-trimethoprim 10,000 unit- 1 mg/mL drops ophthalmic (eye) dulaglutide 1.5 mg/0.5 mL pen injector 1.5 mg subcut QWEEK 30 Days Qty: 2.5 6RF albuterol sulfate [Ventolin HFA] 90 mcg/actuation HFA aerosol inhaler 0 mcg inhalation (DME) pen needle, diabetic [BD Ultra-Fine Short Pen Needle] 31 gauge x 5/16 needle See Rx Instructions subcut QID Qty: 1200 Rx Instructions: As directed Lantus Solostar U-100 Insulin 100 unit/mL (3 mL) insulin pen 7 unit subcut DAILY venlafaxine 37.5 mg capsule,extended release 24hr 37.5 mg PO DAILY oxybutynin chloride 10 mg tablet extended release 24hr 10 mg PO DAILY 90 Days Qty: 90 2RF Clenpiq 10 mg-3.5 gram- 12 gram/160 mL solution 160 ml PO DAILY Qty: 320 0RF Rx Instructions: take first dose at 5-9PM evening before colonoscopy; 2nd dose the next day approximately 5 hrs before colonoscopy Interventions: ED Discharge Assessment Last Done: 01/03/23 14:55 Discharge Date/Time: 01/03/23 14:56
== END 2023-01-03 14:56 | disposition left against medical advice (07) ==
PROVIDERS: Emergency Provider Emergency Medicine; PCP Internal Medicine
DX: M54.50 Low back pain, unspecified (principal); M54.2 Cervicalgia; E11.9 Type 2 diabetes mellitus without complications; Z79.4 Long term (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; Z79.899 Other long term (current) drug therapy
CPT/HCPCS: 99282

== ENCOUNTER 2023-01-11 11:15 | Emergency (ER) | payer OTHER, SELFPAY ==
--- NOTE | ~2023-01-11 | CT_ITS ---
EXAMINATION: CT ABDOMEN AND PELVIS WITHOUT CONTRAST CLINICAL INFORMATION: Abdominal pain and back pain COMPARISON: Previous CT pelvis April 2022 TECHNIQUE: Multidetector volumetric imaging was performed from the superior aspect of the liver through the pubic symphysis. Sagittal and coronal reformatted images were obtained on the technologist's workstation. This CT examination was performed using dose optimization techniques as appropriate, variously including the following: *Automated exposure control *Adjustment of mA and/or kV according to patient size (this includes techniques or standardized protocols for targeted exams where dose is matched to indication/reason for exam; i.e. extremities or head) *Use of iterative reconstruction technique DLP: 524 mGy-cm FINDINGS: LUNG BASES: The visualized lung bases are clear. Calcified left hilar and lymph nodes probably related to old granulomatous disease. LIVER, GALLBLADDER, AND BILIARY TREE: The liver is normal in size, shape, and attenuation. Small liver calcifications Findings will be communicated by the Gilman work flow lap checker.. No focal hepatic lesion or biliary ductal dilatation is present. The gallbladder is unremarkable with no evidence of radiopaque gallstones, gallbladder wall thickening, or obvious pericholecystic inflammatory changes. PANCREAS: Unremarkable. SPLEEN: Small calcifications. Otherwise normal. ADRENAL GLANDS: Unremarkable. KIDNEYS AND URETERS: The kidneys are normal in size, shape, and attenuation. No hydronephrosis, hydroureter, or calculi seen. No perinephric stranding. BLADDER: Not full and not optimally evaluated. GASTROINTESTINAL TRACT: Stool throughout the colon suggestive of constipation. No evidence of obstruction. Mild diverticulosis of the colon. No evidence of diverticulitis. Appendix not seen. No inflammatory changes in the right lower quadrant. Wall thickening and edema of the distal stomach. There also may be stranding of the fat superior to the greater curvature of the stomach for example coronal reconstructed image 18 and sagittal reconstructed image 47. Appearance is concerning for gastritis or ulcer disease. Mass cannot be excluded. There is no free air. ABDOMINAL WALL: No significant hernia is appreciated. LYMPH NODES: Normal. VASCULAR: Unremarkable. PELVIC VISCERA: The uterus appears to have been removed. No pelvic mass. OSSEOUS STRUCTURES: Degenerative changes of the spine. CT/CT abdomen pelvis wo IV con IMPRESSION: Abnormal appearance of the stomach. There is wall thickening and edema of the distal stomach. There is abnormal soft tissue superior to the greater curvature of the distal stomach. Appearance is worrisome for gastritis or ulcer disease. Mass cannot be excluded. GI consultation recommended. Constipation. Mild diverticulosis. No evidence of diverticulitis. Evidence of old granulomatous disease. Findings will be communicated by the Gilman work flow lap checker. Fleischner guidelines were followed.
--- NOTE | 2023-01-11 11:28 | ED.GENADULT ---
HPI - General Adult General Chief complaint: Back Pain/Injury Stated complaint: Back pain/R leg pain Time Seen by Provider: 01/11/23 11:50 Source: patient, family, RN notes reviewed and diplomatic interpreter/translator Mode of arrival: ambulatory Limitations: language barrier History of Present Illness HPI narrative: This is a [id number]-female, with a past medical history of hypertension, GERD, and diabetes, presenting to the emergency department with complaints of atraumatic back pain x 2 weeks. She denies any recent falls, heavy lifting or trauma. Reports pain worsens with movement and with palpation. She has been taking tylenol and motrin for her symptoms which has provided her with mild relief. She states that the back pain radiates into her left leg as well as abdomen. She endorses urinary frequency, no hematuria, dysuria or urgency. No fevers, chills, chest pain, shortness of breath, nausea, vomiting or diarrhea. No other complaints or concerns at this time. MD complaint: Baack pain Onset (ago): week(s) Location: back Radiation: flank Severity: moderate Quality: aching Pain Consistency: constant Relieving factors: immobilization Exacerbating factors: movement Associated symptoms: denies other symptoms Treatments prior to arrival: none Related Data Home Medications Medication Instructions Recorded Confirmed trazodone 50 mg tablet 25 mg PO BEDTIME PRN Pain 07/08/20 08/02/22 pregabalin 100 mg capsule (Lyrica) 100 mg PO BID 08/07/21 08/02/22 albuterol sulfate 90 mcg/actuation 0 mcg inhalation 09/17/21 08/02/22 aerosol inhaler (Ventolin HFA) insulin glargine 100 unit/mL (3 7 unit subcut DAILY 09/17/21 08/02/22 mL) subcutaneous pen (Lantus Solostar U-100 Insulin) pen needle, diabetic 31 gauge x #1,200 ea 09/17/21 08/02/22 5/16 (BD Ultra-Fine Short Pen Needle) meclizine 25 mg tablet 25 mg PO BID PRN 03/25/22 08/02/22 polymyxin B sulfate 10,000 ml ophthalmic (eye) 03/25/22 08/02/22 unit-trimethoprim 1 mg/mL eye drops venlafaxine 37.5 mg 37.5 mg PO DAILY depressive 04/04/23 capsule,extended release 24 hr disorder Previous Rx's Medication Instructions Recorded hydrocortisone 2.5 % topical cream 1 applic topical DAILY PRN rash 30 03/18/20 days #20 grams fluticasone propionate 220 1 puff PO BID 90 days #12 grams 10/15/20 mcg/actuation HFA aerosol inhaler (Flovent HFA) alcohol swabs (Alcohol Prep Pads) 1 pad topical QID e11.40 0 days 11/13/20 #100 ea blood sugar diagnostic (FreeStyle #100 ea 11/13/20 Lite Strips) calcium carbonate 600 mg calcium 600 mg PO BID 30 days #60 tabs 11/13/20 (1,500 mg) tablet lancets 28 gauge (FreeStyle #100 ea 11/13/20 Lancets) pen needle, diabetic 32 gauge x #50 ea 11/13/20 (BD Ultra-Fine Guerda Pen Needle) albuterol sulfate 2.5 mg/3 mL 2.5 mg (3 mL) inhalation TID 30 11/16/20 (0.083 %) solution for nebulization days #270 mL tramadol 50 mg tablet 50 mg PO BID PRN pain 30 days #60 11/26/20 tabs loratadine 10 mg tablet 10 mg PO DAILY 90 days #90 tabs 01/12/21 amlodipine 5 mg tablet 5 mg PO DAILY #90 tabs 02/02/21 lisinopril 30 mg tablet 30 mg PO DAILY 90 days #90 tabs 02/02/21 hydroxyzine HCl 10 mg tablet 10 mg PO TID PRN itching 30 days 02/24/21 #30 tabs dulaglutide 1.5 mg/0.5 mL 1.5 mg (0.5 mL) subcut QWEEK 30 06/24/21 subcutaneous pen injector days #2.5 mL montelukast 10 mg tablet 10 mg PO DAILY #90 tabs 08/18/21 aspirin 81 mg tablet,delayed 81 mg PO DAILY #90 tabs 11/06/21 release acetaminophen 650 mg 650 mg PO Q12H PRN pain #60 tabs 12/30/21 tablet,extended release (Mapap Arthritis Pain) empagliflozin 12.5 mg-metformin 1 tab PO BID #60 tabs 06/15/22 1,000 mg tablet (Synjardy) cyclobenzaprine 5 mg tablet 5 mg PO BEDTIME 14 days #14 tabs 03/23/23 oxybutynin chloride 10 mg 10 mg PO DAILY 90 days #90 tabs 08/02/22 tablet,extended release 24 hr sod picosulf 10 mg-magnes 3.5 160 ml PO DAILY 2 doses #320 mL 08/19/22 gram-citric 12 gram/160 mL oral solution (Clenpiq) eluxadoline 75 mg tablet (Viberzi) 75 mg PO BID #60 tabs 12/02/22 methylcellulose (laxative) 500 mg 1,000 mg PO DAILY 30 days #60 tabs 12/02/22 tablet (Citrucel) pantoprazole 40 mg tablet,delayed 40 mg PO DAILY 90 days #90 tabs 12/02/22 release simethicone 180 mg capsule 180 mg PO TID 30 days #90 caps 12/02/22 acetaminophen 500 mg tablet 500 mg PO QID PRN pain #30 tabs 01/11/23 (Tylenol Extra Strength) cyclobenzaprine 5 mg tablet 5 mg PO TID PRN muscle spasm #14 01/11/23 tabs lidocaine 5 % topical patch 1 patch topical DAILY #30 ea 01/11/23 (Lidoderm) Allergies Allergy/AdvReac Type Severity Reaction Status Date / Time No Known Allergies Allergy Verified 01/11/23 11:29 [No Known Allergies*] Review of Systems Review of Systems: Yes all other systems are reviewed and are negative Constitutional: Constitutional: Reports as per [facility] Past Medical History Attestation statement: The following information was validated with the patient. Medical History Cervical spondylitis COVID-19 vaccine series completed Depression with anxiety Diabetes mellitus Diabetes type 2, controlled Diabetic 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 associated with type 2 diabetes mellitus Dyslipidemia Elevated CPK Essential hypertension Lab test positive for detection of COVID-19 virus senior living (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 Lumbar spondylosis Mild recurrent major depression Moderate asthma Muscle weakness Osteopenia Polyarthralgia Polyarthralgia Urge urinary incontinence Vertigo Surgical History History of esophagogastroduodenoscopy (EGD) History of surgery on extremity History of tubal ligation Hx of colonoscopy S/P SHERRY-BSO (total abdominal hysterectomy and bilateral salpingo-oophorectomy) Family History Family History Father Hypertension Mother Cancer Sister Breast cancer Social History Social History Household Members: Significant Other Housing: House Alcohol intake: never Patient Tobacco Use Status: Never used Tobacco e-Cigarette/Vaping Use: Never Used Second Hand Smoke Exposure: No Advance Directives: No Advance Directives Information Provided: Yes service: No Current occupational status: disabled Physical Exam ED Vital Signs: Vital Signs - 24 hr 01/11/23 11:29 Temperature 96.5 F L Pulse Rate 88 Respiratory Rate 18 Blood Pressure 113/66 Pulse Oximetry 98 Oxygen Delivery Method Room Air BMI result Body Mass Index 25.7 Const General: cooperative, comfortable and no acute distress Orientation/consciousness: patient oriented x3 Limitations: no limitations HENMT Head: Yes normal to inspection, Yes normocephalic and Yes atraumatic Ears: hearing grossly normal bilaterally General nose exam: Normal external nose present Face and sinus: Yes normal facial exam Mouth: Normal oral and palatal mucosa present, oropharynx normal and moist mucous membranes Throat: Yes posterior oropharynx normal Eyes General: appearance normal, both eyes and all related structures Eyelids: Yes eyelids normal Conjunctivae: conjunctivae normal Sclerae: sclerae normal Pupils: Equal, round and reactive pupils present EOM: EOMs intact bilaterally Neck Neck: Yes normal visual inspection, Yes full ROM and Yes no lymphadenopathy Lymphatic: no lymphadenopathy noted Chest Chest palpation & inspection: normal inspection of the chest Resp Effort & Inspection: normal respiratory effort and able to speak in complete sentences Auscultation: clear to auscultation bilaterally, no crackles, no rales, no rhonchi and no wheezes Cardio Rate: regular rate Rhythm: regular rhythm Heart sounds: S1 normal heart sound present and S2 normal heart sound present GI Other: Abdomen is diffusely tender without any point tenderness. No rebound, guarding. Normoactive bowel sounds present in all 4 quadrants. Inspection: Yes normal to inspection General: Yes CVA tenderness Back/Spine/Pelvis Other: TTP throughout lumbar paraspinous muscles. Ambulatory. Pain worsening with movement of her back. Patellar reflexes 2+ bilaterally. Back: CVA tenderness Skin General skin exam: no rashes or lesions noted Trauma: no lacerations or abrasions Wounds: no wounds Neuro General: patient oriented x3 and moves all extremities Cranial nerves: Yes Equal, round and reactive pupils present Extrem General: Yes normal to inspection Right upper extremity: normal to inspection Left upper extremity: normal to inspection Right lower extremity: normal to inspection Left lower extremity: normal to inspection Course Course Course Narrative: This is an RME: Additional HPI, ROS, PE not included below will be deferred to primary provider. 72 year old female presents with bilateral lower back pain that radiates down the legs for 3 weeks. No red flag symptoms, urination and having bowel movements as usual. [place] [facility] [place]uation(s) Reevaluation #1: CT scan returned showing abnormal appearance of the stomach there is wall thickening and edema to the distal stomach. Discussed case with attending physician Dr. Thomas, who recommends outpatient GI f/u and PPI. Discussed with patient, patient already on PPI and sees [facility]. Will d/c with referral to GI in case she is unable to follow up. Back pain likely due to dengerative chanages seen on imaging and muscle spasms. Will d.c with conservative measures. Pt understands and agrees with plan. Stable for d/c. Time: 17:34 Medical Decision Making Medical Decision Making [facility] Narrative: 72 y/o F presenting to the ER with complaints of atraumatic back pain x 2 weeks. On arrival, all vss. This patient presents with back pain most consistent with sciatica vs muscle spaasm. Differential diagnoses includes lumbago versus musculoskeletal spasm / strain versus sciatica. No back pain red flags on history or physical. Presentation not consistent with malignancy (lack of history of malignancy, lack of B symptoms), fracture (no trauma, no bony tenderness to palpation), cauda equina syndrome (no bowel or urinary incontinence/retention, no saddle anesthesia, no distal weakness). Pyelonephritis is consider due to CVA tenderness and some urinary frequency. Pt has some diffuse abdominal tenderness, given findings will obtaain CT for further evaluation. Differential Diagnosis Differential Diagnoses: The differential diagnosis associated with the presentation includes See above Admission/Observation Consideration of admission/observation: Escalation of care including admission/observation considered Patient would have been admitted to the hospital had her work up had any findings where hospital admission was appropriate and her clinical presentation warranted hospital admission. Lab Data [facility] Lab Attestation statement: I reviewed the patient's lab results. Mild leukocytosis at 11.2, likely reactive due to pain. H&H stable. electrolytes WNL. 01/11/23 13:53 01/11/23 13:53 Labs: Lab Results 01/11/23 01/11/23 01/11/23 Range/Units 13:53 13:53 14:09 WBC 11.2 H (4.8-10.8) X10*3/uL RBC 4.48 (4.20-5.50) X10*6/uL Hgb 12.7 (12.0-16.0) g/dl Hct 39.9 (37.0-47.0) % MCV 89.1 (80.0-98.0) fL MCH 28.3 (27.0-33.0) pg MCHC 31.8 (31.0-35.0) g/dl RDW 15.1 (11.0-16.0) % Plt Count 305 (160-400) X10*3/uL MPV 10.8 (9.4-12.3) fL Immature Gran % (Auto) 0.5 H (0.0-0.4) % Neut % (Auto) 50.0 (45-73) % Lymph % (Auto) 26.4 (20-40) % [place] % (Auto) 10.1 (2-11) % Eos % (Auto) 12.6 H (0-4) % Baso % (Auto) 0.4 (0-2) % Lymph # (Auto) 3.0 (1.2-4.9) X10*3/uL [place] # (Auto) 1.1 (0.1-1.2) X10*3/uL Eos # (Auto) 1.4 H (0.0-0.4) X10*3/uL Baso # (Auto) 0.0 (0.0-0.2) X10*3/uL Abs Immat Gran (auto) 0.06 H (0.00-0.03) X10*3/uL Absolute Neuts (auto) 5.6 (2.0-8.3) x10*3/uL Absolute Nucleated RBC 0.000 (0.0-0.012) X10*3/uL Nucleated RBC % (auto) 0.0 (0.0-0.2) /100WBC Sodium 140 (135-145) mmol/L Potassium 4.1 (3.3-5.1) mmol/L Chloride 103 (96-108) mmol/L Carbon Dioxide 28 (22-29) mmol/L Anion Gap 13 (12-20) BUN 14 (9-16) mg/dL Creatinine 0.76 (0.5-1.4) mg/dL Estim Creat Clear Calc 61.9 Estimated GFR > 60 Random Glucose 70 (60-115) mg/dL Calcium 10.6 H D (8.4-10.2) mg/dL Total Bilirubin 0.4 (0.0-1.0) mg/dL Direct Bilirubin 0.2 (0.0-0.5) mg/dL AST 20 (5-31) U/L ALT 20 (0-31) U/L Alkaline Phosphatase 78 (39-117) U/L Total Protein 8.2 H (6.5-8.0) g/dL Albumin 4.3 (3.5-5.0) g/dL Lipase 16 (8-78) U/L Urine Color Yellow Urine Appearance Clear Urine pH 5.5 (5.0-9.0) Ur Specific [place] >= 1.030 H (1.005-1.025) Urine Protein Negative (Neg-Trace) mg/dL Urine Glucose (UA) >=1000 H (Negative) mg/dL Urine Ketones Trace (Negative) mg/dL Urine Blood Negative (Negative) Urine Nitrite Negative (Negative) Ur Leukocyte Esterase Negative (Negative) Urine RBC 3-5 H (0-2) /HPF Urine WBC 0-5 (0-5) /HPF Ur Squamous Epith Cells 3-5 (0-2) /HPF Urine Bacteria Trace (None Seen) Hyaline Casts 0-2 (0-2) /LPF Radiology Impression Discussion of test interpretation with radiology: I have reviewed the radiologist's reading. Radiologist Impression: EXAMINATION: CT ABDOMEN AND PELVIS WITHOUT CONTRAST? CLINICAL INFORMATION: Abdominal pain and back pain? COMPARISON: Previous CT pelvis April 2022 TECHNIQUE: Multidetector volumetric imaging was performed from the superior aspect of the liver through the pubic symphysis. Sagittal and coronal reformatted images were obtained on the technologist's workstation.? This CT examination was performed using dose optimization techniques as appropriate, variously including the following: *Automated exposure control *Adjustment of mA and/or kV according to patient size (this includes techniques or standardized protocols for targeted exams where dose is matched to indication/reason for exam; i.e. extremities or head) *Use of iterative reconstruction technique DLP: 524 mGy-cm FINDINGS: LUNG BASES: The visualized lung bases are clear. Calcified left hilar and lymph nodes probably related to old granulomatous disease. LIVER, GALLBLADDER, AND BILIARY TREE: The liver is normal in size, shape, and attenuation. Small liver calcifications Findings will be communicated by the Annabella work flow full fashioned garment knitter.. No focal hepatic lesion or biliary ductal dilatation is present. The gallbladder is unremarkable with no evidence of radiopaque gallstones, gallbladder wall thickening, or obvious pericholecystic inflammatory changes.? PANCREAS: Unremarkable.? SPLEEN: Small calcifications. Otherwise normal. ADRENAL GLANDS: Unremarkable.? KIDNEYS AND URETERS: The kidneys are normal in size, shape, and attenuation. No hydronephrosis, hydroureter, or calculi seen. No perinephric stranding. ? BLADDER: Not full and not optimally evaluated. GASTROINTESTINAL TRACT: Stool throughout the colon suggestive of constipation. No evidence of obstruction. Mild diverticulosis of the colon. No evidence of diverticulitis. Appendix not seen. No inflammatory changes in the right lower quadrant. Wall thickening and edema of the distal stomach. There also may be stranding of the fat superior to the greater curvature of the stomach for example coronal reconstructed image 18 and sagittal reconstructed image 47. Appearance is concerning for gastritis or ulcer disease. Mass cannot be excluded. There is no free air. ABDOMINAL WALL: No significant hernia is appreciated.? LYMPH NODES: Normal. VASCULAR: Unremarkable. PELVIC VISCERA: The uterus appears to have been removed. No pelvic mass. OSSEOUS STRUCTURES: Degenerative changes of the spine.? CT/CT abdomen pelvis wo IV con IMPRESSION: Abnormal appearance of the stomach. There is wall thickening and edema of the distal stomach. There is abnormal soft tissue superior to the greater curvature of the distal stomach. Appearance is worrisome for gastritis or ulcer disease. Mass cannot be excluded. GI consultation recommended. Constipation. Mild diverticulosis. No evidence of diverticulitis. Evidence of old granulomatous disease.? ? Findings will be communicated by the Annabella work flow full fashioned garment knitter. ? Fleischner guidelines were followed. Dictated By: Discharge Plan Discharge Clinical Impression: Constipation, Lumbar paraspinal muscle spasm, Gastritis Patient Disposition: Home, Self-Care Instructions: Constipation (ED), High Fiber Diet (ED), Diet for Stomach Ulcers and Gastritis (ED), Muscle Spasm (ED) Additional Instructions: Your CT scan today showed constipation as well as evidence of gastritis or ulcers. A mass cannot be excluded therefore it is crucial that you follow-up with your GI specialist. Please call them tomorrow to make an appointment. If you are unable to see your insurance coder, I am giving you a referral to our GI specialist. Please continue taking your omeprazole. Do not take ibuprofen or NSAIDs. You may take Tylenol. Take Tylenol use Lidoderm patches, and use muscle relaxants. Do not drink or drive while taking this as this will make you drowsy. Gentle massage, ice or heat can also help with your symptoms. If any other new or worsening symptoms occur please return for re-evaluation. Cantu tomograf?a computarizada de hoy mostr? estre?imiento y evidencia de gastritis o ?lceras. No se puede excluir lina masa, por lo que es fundamental que realice un seguimiento con cantu especialista gastrointestinal. Ll?melos ma?jack para programar lina augusto. Si no puede tigist a cantu gastroenter?logo, le derivar? a nuestro especialista gastrointestinal. Contin?e tomando cantu omeprazol. No tome ibuprofeno ni MARIANGEL. Puede miguel Tylenol. [place] Tylenol, use parches de Lidoderm y use relajantes musculares. No aniyah ni conduzca mientras brary esto, ya que le provocar? somnolencia. Un masaje suave, hielo o calor tambi?n pueden ayudar con campos s?ntomas. Si se presenta alg?n otro s?ntoma nuevo o que empeora, regrese para lina reevaluaci?n. Prescriptions: New acetaminophen [Tylenol Extra Strength] 500 mg tablet 500 mg PO QID PRN (Reason: pain) Qty: 30 0RF cyclobenzaprine 5 mg tablet 5 mg PO TID PRN (Reason: muscle spasm) Qty: 14 0RF lidocaine [Lidoderm] 5 % adhesive patch,medicated 1 patch topical DAILY Qty: 30 0RF Rx Instructions: leave on most painful area for up to 12 hrs No Action hydrocortisone 2.5 % cream 1 applic topical DAILY PRN (Reason: rash) 30 Days Qty: 20 0RF Flovent HFA 220 mcg/actuation HFA aerosol inhaler 1 puff PO BID 90 Days Qty: 12 6RF albuterol sulfate 2.5 mg /3 mL (0.083 %) solution for nebulization 2.5 mg inhalation TID 30 Days Qty: 270 2RF tramadol 50 mg tablet 50 mg PO BID PRN (Reason: pain) 30 Days Qty: 60 0RF loratadine 10 mg tablet 10 mg PO DAILY 90 Days Qty: 90 3RF lisinopril 30 mg tablet 30 mg PO DAILY 90 Days Qty: 90 1RF amlodipine 5 mg tablet 5 mg PO DAILY Qty: 90 1RF hydroxyzine HCl 10 mg tablet 10 mg PO TID PRN (Reason: itching) 30 Days Qty: 30 2RF montelukast 10 mg tablet 10 mg PO DAILY Qty: 90 3RF aspirin 81 mg tablet,delayed release (DR/EC) 81 mg PO DAILY Qty: 90 3RF acetaminophen [Mapap Arthritis Pain] 650 mg tablet extended release 650 mg PO Q12H PRN (Reason: pain) Qty: 60 1RF Synjardy 12.5-1,000 mg tablet 1 tab PO BID Qty: 60 6RF simethicone 180 mg capsule 180 mg PO TID 30 Days Qty: 90 6RF Rx Instructions: after meals pantoprazole 40 mg tablet,delayed release (DR/EC) 40 mg PO DAILY 90 Days Qty: 90 2RF Citrucel 500 mg tablet 1,000 mg PO DAILY 30 Days Qty: 60 3RF Viberzi 75 mg tablet 75 mg PO BID Qty: 60 3RF Rx Instructions: must administer with a meal/food cyclobenzaprine 5 mg tablet 5 mg PO BEDTIME 14 Days Qty: 14 0RF trazodone 50 mg tablet 25 mg PO BEDTIME PRN (Reason: Pain) alcohol swabs [Alcohol Prep Pads] Pads, Medicated 1 pad topical QID Qty: 100 6RF (DME) FreeStyle Lite Strips Strip See Rx Instructions .ROUTE .MEDSUPPLY Qty: 100 11RF Rx Instructions: test three times a day calcium carbonate 600 mg calcium (1,500 mg) tablet 600 mg PO BID 30 Days Qty: 60 11RF (DME) lancets [FreeStyle Lancets] 28 gauge misc See Rx Instructions .ROUTE .MEDSUPPLY Qty: 100 11RF Rx Instructions: test three times a day (DME) pen needle, diabetic [BD Ultra-Fine Guerda Pen Needle] 32 gauge x 5/32 needle See Rx Instructions .ROUTE .MEDSUPPLY Qty: 50 11RF Rx Instructions: As directed pregabalin [Lyrica] 100 mg capsule 100 mg PO BID meclizine 25 mg tablet 25 mg PO BID PRN polymyxin B sulf-trimethoprim 10,000 unit- 1 mg/mL drops ophthalmic (eye) dulaglutide 1.5 mg/0.5 mL pen injector 1.5 mg subcut QWEEK 30 Days Qty: 2.5 6RF albuterol sulfate [Ventolin HFA] 90 mcg/actuation HFA aerosol inhaler 0 mcg inhalation (DME) pen needle, diabetic [BD Ultra-Fine Short Pen Needle] 31 gauge x 5/16 needle See Rx Instructions subcut QID Qty: 1200 Rx Instructions: As directed Lantus Solostar U-100 Insulin 100 unit/mL (3 mL) insulin pen 7 unit subcut DAILY venlafaxine 37.5 mg capsule,extended release 24hr 37.5 mg PO DAILY oxybutynin chloride 10 mg tablet extended release 24hr 10 mg PO DAILY 90 Days Qty: 90 2RF Clenpiq 10 mg-3.5 gram- 12 gram/160 mL solution 160 ml PO DAILY Qty: 320 0RF Rx Instructions: take first dose at 5-9PM evening before colonoscopy; 2nd dose the next day approximately 5 hrs before colonoscopy Referrals: [facility] [Provider Group] Interventions: ED Discharge Assessment Last Done: 01/11/23 18:23 Discharge Date/Time: 01/11/23 18:24
[2023-01-11 11:29] VITALS: BP 113/66; PULSE 88; RESP 18; TEMP 35.8; O2SAT 98; BMI 25.7
[2023-01-11 14:25] LABS: MANUAL DIFF FLAG NO
[2023-01-11 14:27] LABS: Basophils Percent Auto 0.4 % (0-2); Eosinophils Absolute Auto 1.4 X10*3/uL (0.0-0.4); Eosinophils Percent Auto 12.6 % (0-4); Hematocrit 39.9 % (37.0-47.0); Hemoglobin 12.7 g/dl (12.0-16.0); Imm Gran Abs Auto 0.06 X10*3/uL (0.00-0.03); Imm Gran Pct Auto 0.5 % (0.0-0.4); Lymphocytes Percent Auto 26.4 % (20-40); Mean Corpuscular HGB Conc 31.8 g/dl (31.0-35.0); Mean Corpuscular Hemoglobin 28.3 pg (27.0-33.0); Mean Corpuscular Volume 89.1 fL (80.0-98.0); Mean Platelet Volume 10.8 fL (9.4-12.3); Monocytes Absolute Auto 1.1 X10*3/uL (0.1-1.2); Monocytes Percent Auto 10.1 % (2-11); Neutrophils Absolute Auto 5.6 x10*3/uL (2.0-8.3); Platelet Count 305 X10*3/uL (160-400); Red Blood Count 4.48 X10*6/uL (4.20-5.50); Red Cell Distribution Width 15.1 % (11.0-16.0); White Blood Count 11.2 X10*3/uL (4.8-10.8)
[2023-01-11 14:30] LABS: Appearance Urine Clear; Color Urine Yellow; Glucose Urine UA >=1000 mg/dL (Negative); Leukocyte Esterase Urine Negative (Negative); Nitrite Urine Negative (Negative); PH 5.5 (5.0-9.0); Specific Gravity - Urine >= 1.030 (1.005-1.025); UMIC TRIGGER UACC YES; Urine Blood Negative (Negative); Urine Ketones Trace mg/dL (Negative); Urine Protein Negative (Neg-Trace)
[2023-01-11 14:33] LABS: Bacteria Urine Trace (None Seen); Hyaline Casts Urine 0-2 /LPF (0-2); WBC Urine 0-5 /HPF (0-5)
[2023-01-11 14:47] LABS: Alanine Aminotransferase 20 U/L (0-31); Albumin Level 4.3 g/dL (3.5-5.0); Alkaline Phosphatase 78 U/L (39-117); Anion Gap 13 (12-20); Aspartate Amino Transferase 20 U/L (5-31); Bilirubin Direct 0.2 mg/dL (0.0-0.5); Bilirubin Total 0.4 mg/dL (0.0-1.0); Blood Urea Nitrogen 14 mg/dL (9-16); Calcium 10.6 mg/dL (8.4-10.2); Carbon Dioxide 28 mmol/L (22-29); Chloride 103 mmol/L (96-108); Creatinine Clr Calc Pharmacy 61.9; Estimated Glomerular Filt Rate > 60; Glucose Random 70 mg/dL (60-115); Lipase 16 U/L (8-78); Potassium 4.1 mmol/L (3.3-5.1); Sodium 140 mmol/L (135-145); Total Protein 8.2 g/dL (6.5-8.0)
== END 2023-01-11 18:24 | disposition home or self-care (01) ==
PROVIDERS: Physician Assistant Medical; Emergency Provider Emergency Medicine; PCP Internal Medicine
DX: K29.70 Gastritis, unspecified, without bleeding (principal); K59.00 Constipation, unspecified; R10.2 Pelvic and perineal pain; M62.838 Other muscle spasm; Z79.899 Other long term (current) drug therapy
CPT/HCPCS: 36415; 74176; 80048; 80076; 81001; 83690; 85025; 99282; 99284

== ENCOUNTER 2023-01-18 10:13 | Outpatient (AMB) | payer OTHER, SELFPAY ==
--- NOTE | 2023-01-18 10:15 | MHC.OFFVIS ---
Intake Vital Signs 01/18/23 10:16 Height 5 ft 3 in Weight 159 lb 9.835 oz BMI 28.3 BP 133/64 Blood Pressure Location Lt brachial Position Sitting Pulse 84 Intake Visit Reasons: s/p [place]; Dr. Nicole Intake Note: Patient presnts to in office visit today in colonoscopy follow up. CC: Patient reports she went to the ER with lower back pain s/p colonoscopy. Bonding Equipment Operator Required: Yes Bonding Equipment Operator Name: Stef Accompanied by: Daughter Allergies No Known Allergies [No Known Allergies*] Allergy (Verified 01/18/23 10:24) HPI s/p [place]; Dr. Nicole HPI Details Assessment & Plan (1) Irritable bowel syndrome with diarrhea: Code(s): K58.0 - Irritable bowel syndrome with diarrhea Plan: Jordanian #dtr interprets per pt request She fell down the stairs!! Has stitches on her left chin and extensive bruising in the purple stages of healing. She also has some sutures on her cheek all appears to be healing well without infection. She feels that the Viberzi at 75mg bid is effective in controlling her stooling sx. She does not feel that we need to increase her make any dose adjustment at this time. She continues on the pantoprazole simethicone with good control of her GERD. She is agreeable to getting colonoscopy rescheduled. Her asthma is well controlled and she denies any cardiac problems There are no prior problems with anesthesia or sedation. She has a family history of colorectal cancer. ROV 6 mos and of course after the colonoscopy. (2) GERD (gastroesophageal reflux disease): Code(s): K21.9 - Gastro-esophageal reflux disease without esophagitis (3) POST (nonalcoholic steatohepatitis): Comment: BASELINE Laboratory Tests 11/13/20 Total Bilirubin 0.3 AST 40 H ALT 53 H Alkaline Phosphatase 109 06/08/21 SHARON Screen NEGATIVE Anti-Mitochondrial Ab NEGATIVE Anti-Smooth Muscle Ab <20 Hepatitis A IgM Ab Nonreactive Hep Bs Antigen Negative Hep Bs Antibody NONREACTIVE Hep B Core Total Ab Nonreactive Hepatitis C Ab (EIA) Nonreactive HIV 1&2 Ab/P24 Ag 4thGn Nonreactive CURRENT LABS 08/19/22 WBC 6.1 Hgb 12.1 Hct 37.6 Estimated GFR > 60 Total Bilirubin 0.6 AST 27 ALT 32 H Alkaline Phosphatase 84 Alpha Fetoprotein 5.8 ULTRASOUND 07/28/21 MPRESSION: Slightly echogenic liver probably representing fatty infiltration similar to previous ultrasound. Code(s): K75.81 - Nonalcoholic steatohepatitis (POST) (4) Family history of colon cancer: Comment: Sister in early 70's 08/2021=insuff prep repeat 1 year aeb Code(s): Z80.0 - Family history of malignant neoplasm of digestive organs (5) Pre-op examination: Code(s): Z01.818 - Encounter for other preprocedural examination Orders: Orders Alpha Fetoprotein 08/19/22 K75.81 - Nonalcoho lic steatohepatiti s (POST), Z01.818 - Encounter for ot her preprocedural examination Comprehensive Met. Panel 08/19/22 K75.81 - Nonalcoho lic steatohepatiti s (POST), Z01.818 - Encounter for ot her preprocedural examination Complete Blood Cou nt Auto Diff 08/19/22 K75.81 - Nonalcoho lic steatohepatiti s (POST), Z01.818 - Encounter for ot her preprocedural examination US abdomen limited 08/19/22 K75.81 - Nonalcoho lic steatohepatiti s (POST) Medications: New sod picosulf-mag o x-citric ac 10 mg- 3.5 gram- 12 gram/ 160 mL (Clenpiq) take first dose at 5-9PM evening b efore colonoscopy; 2nd dose the next day approximately 5 hrs before colo noscopy 160 mL PO DAILY 3 20 mL 0RF Z80.0 - Family his tory of malignant neoplasm of digest serina organs LABS: 01/11/23-[address]: Tyrell Duran MD ORDERED: CBC Auto Diff Test Result Flag Refere nce Si te WBC 11.2 H 4.8-10. 8 X10*3/uL RBC 4.48 4.20-5.50 X10*6/uL H GB 12 .7 12.0-16.0 g /dl HCT 39.9 37.0-47.0 % MCV 89.1 80.0-98.0 fL MCH 28.3 27.0-33.0 pg MCHC 31.8 3 1.0-35.0 g/dl RDW 15.1 11. 0-16.0 % PLT 305 160-4 00 X10*3/uL MPV 10.8 9.4-12. 3 fL Neut Pct Auto 50.0 45-73 % I mGran Pct Auto 0. 5 H 0.0-0.4 % Lym p Pct Auto 26.4 20-40 % Lyman Pct Auto 10.1 2-11 % Eos Pct Auto 12.6 H 0-4 % Baso Pct Auto 0.4 0 -2 % NRBC Pct Au to 0.0 0.0 -0.2 /100WBC ANC Neut Abs # 5.6 2.0-8 .3 x10*3/uL ImGran Abs Auto 0.06 H 0.00-0. 03 X10*3/uL Lymph Abs Auto 3.0 1.2-4.9 X 10*3/uL M mely Abs Auto 1. 1 0.1-1.2 X10 *3/uL Eos Abs Auto 1.4 H 0.0-0.4 X10*3 /uL Baso Abs Auto 0.0 0.0-0.2 X10*3/u L NRBC Ab s Auto 0.000 0.0-0.012 X10*3/u L ADEOLA: 01/11/23 53 STATUS: CO MP REQ : [id number] RECD: 01/11/[address]: Apurva Oreilly COMP: 01/11/23 447 ENTERED: [facility] DR: Abelino Baxter MD ORDERED: Harika er Panel, BMP, Lip Test Result Flag Refere nce Si te Sodium 140 135-145 mmol/L Potassium 4.1 3.3-5.1 m mol/L C L 10 3 96-108 mmol /L CO2 28 22-29 mmol/L Gap 13 12-20 BUN 14 9-16 mg/dL Creat 0.76 0 .5-1.4 mg/dL Estimated C rCl 61.9 Provided height and weight : 160.02 cm, 65.8 kg. eGFR (calculated from the MDRD stud y equation) and eC rCl (calcul ated from the Cock croft-Gault equati on) are based on different pa rameters and may n ot yield comparabl e results. If eCrCl r esult is absurd, p lease check patien t's height/ weight. EGFR > 60 NOTE: For -Amer ican individuals, multiply the resul t by 1.210. Chronic Kidne y Disease: Estima jayashree GFR < 60 mL/mi n/1.73m2 Se dane Kidney Diseas e: Estimated GFR < 15 mL/min/1.73m2 Glucose, Random 70 60-115 mg/dL CA 10.6 # H 8.4-10.2 mg/dL T otal Bili 0. 4 0.0-1.0 mg/ dL Dir ect Bili 0.2 0.0-0.5 mg/dL AST ( GOT) 20 5-31 U/L ALT (GP T) 20 0-31 U/L Protein, Total 8.2 H 6 .5-8.0 g/dL Alb 4.3 3.5 -5.0 g/dL Alk Phos 78 39-11 7 U/L Lipase 16 8-78 U/ L 08/19/22-[address]: Tyrell Duran MD ORDERED: Alpha Feto Test Result Flag Refere nce Si te AFPTM 5.8 ng/mL CT ABDOMEN PELVIS.01/11/23 ( ULTRASOUND OF THE ABDOMEN LIKELY CAN BE CANCELED) FINDINGS: LUNG BASES: The visualized lung bases are clear. Calcified left hilar and lymph nodes probably related to old granulomatous disease. LIVER, GALLBLADDER, AND BILIARY TREE: The liver is normal in size, shape, and attenuation. Small liver calcifications Findings will be communicated by the [place] work flow fusing machine tender.. No focal hepatic lesion or biliary ductal dilatation is present. The gallbladder is unremarkable with no evidence of radiopaque gallstones, gallbladder wall thickening, or obvious pericholecystic inflammatory changes. PANCREAS: Unremarkable. SPLEEN: Small calcifications. Otherwise normal. ADRENAL GLANDS: Unremarkable. KIDNEYS AND URETERS: The kidneys are normal in size, shape, and attenuation. No hydronephrosis, hydroureter, or calculi seen. No perinephric stranding. BLADDER: Not full and not optimally evaluated. GASTROINTESTINAL TRACT: Stool throughout the colon suggestive of constipation. No evidence of obstruction. Mild diverticulosis of the colon. No evidence of diverticulitis. Appendix not seen. No inflammatory changes in the right lower quadrant. Wall thickening and edema of the distal stomach. There also may be stranding of the fat superior to the greater curvature of the stomach for example coronal reconstructed image 18 and sagittal reconstructed image 47. Appearance is concerning for gastritis or ulcer disease. Mass cannot be excluded. There is no free air. ABDOMINAL WALL: No significant hernia is appreciated. LYMPH NODES: Normal. VASCULAR: Unremarkable. PELVIC VISCERA: The uterus appears to have been removed. No pelvic mass. OSSEOUS STRUCTURES: Degenerative changes of the spine. CT/CT abdomen pelvis wo IV con IMPRESSION: Abnormal appearance of the stomach. There is wall thickening and edema of the distal stomach. There is abnormal soft tissue superior to the greater curvature of the distal stomach. Appearance is worrisome for gastritis or ulcer disease. Mass cannot be excluded. GI consultation recommended. Constipation. Mild diverticulosis. No evidence of diverticulitis. Evidence of old granulomatous disease. Findings will be communicated by the [facility] work flow fusing machine tender. COLONOSCOPY 12/27/22 Findings: Terminal Ileum: Not evaluated Cecum: Not evaluated Ascending Colon: Not evaluated Transverse Colon: Partially evaluated due to poor prep Descending Colon: Moderate diverticulosis Sigmoid Colon: Moderate diverticulosis Rectum: Normal Ano-rectum: Moderate internal hemorrhoids Colon preparation: Fair to poor - with presence of solid stools and undigested vegetable matter in the right and proximal transverse colon which could not be suctioned Impression and Post Procedure Diagnosis: Colonoscopy Findings: No polyps were detected Moderate diverticulosis seen in the left colon Moderate hemorrhoids on retroflexed exam. Plan: Patient has an appointment on 01/18/23 in the GI Clinic with Doretha Andres NP. Consider obtaining a stool Cologuard or a FIT test since this the 2nd attempt at colonoscopy and pt continues to have sub-optimal prep. She admitted to having mashed potatoes a 12 pm yesterday. Repeat Colonoscopy interval based on results of stool test. BIOPSY Received: 12/27/22 Diagnosis A. Colon, transverse, biopsy: Colonic mucosa with no specific change; no evidence of microscopic colitis. B. Colon, left, biopsy: Colonic mucosa with no specific change; no evidence of microscopic colitis. TODAY'S VISIT Jordanian #Stef Agudelo The procedure needs to be repeated in 5 years due to her the family history of colorectal cancer. The procedure was well tolerated. The results were explained and the patient is agreeable to the follow-up interval as stated. The bowel pattern has returned to normal. Education was provided to tell any 1st degree relatives about their findings to be sure that they are screened by age 45. Educated that they will be put on a recall list when it is time for their repeat scope but should they move out of state or away from the hospital they will need to remember along with their primary to repeat the procedure in a timely fashion to avoid any adverse complications. shE IS HAVING A LOT OF PAIN IN THE LOW BACK THAT RADIATES TO HER LEGS. She presented to the ER for this. The pain is over her entire stomach and follows the contours of the bowel, so despite the ? findings of possible stranding in the stomach this is not the most likely cause. Her pain will be associated with eating, but does now start until 20 mins after the initiation of food. This is more c/w bowels. BUT we will schedule an EGD to be thorough. She continues on pantoprazole and simethicone for this. With discussion she is note taking the VIberzi every day only when I have 4 or more movements a day. When she does have a BM it is loose - so this is not an effective strategy. The pain is likely r/t the stopping and starting of the bowels. I educate her on this. We review all of the labs. She says her medications are being labeled in [place] which complicates compliance - I request the pharmacy label them in Jordanian. I ask her to take 1 Viberzi a day every day adn stop imodium. All written out in Jordanian for her ROV 2 weeks. [facility] Medical History Cervical spondylitis COVID-19 vaccine series completed Depression with anxiety Diabetes mellitus Diabetes type 2, controlled Diabetic 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 associated with type 2 diabetes mellitus Dyslipidemia Elevated CPK Essential hypertension Lab test positive for detection of COVID-19 virus intermediate (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 Lumbar spondylosis Mild recurrent major depression Moderate asthma Muscle weakness Osteopenia Polyarthralgia Polyarthralgia Urge urinary incontinence Vertigo Surgical History History of esophagogastroduodenoscopy (EGD) History of surgery on extremity History of tubal ligation Hx of colonoscopy S/P SHERRY-BSO (total abdominal hysterectomy and bilateral salpingo-oophorectomy) Family History Father Hypertension Mother Cancer Sister Breast cancer Social History Household Members: Significant Other Housing: House Alcohol intake: never Patient Tobacco Use Status: Never used Tobacco e-Cigarette/Vaping Use: Never Used Second Hand Smoke Exposure: No service: No Current occupational status: disabled Review of Systems Const Denies fatigue, Denies fever(s), Denies night sweats, Denies poor appetite and Denies weight loss ENT Reports Normal hearing present, Denies dental pain, Denies dysphagia, Denies hearing loss, Denies mouth pain, Denies odynophagia, Denies throat swelling, Denies tongue swelling and Reports other (Dentition adequate) Card Reports no additional complaints Resp Reports no additional complaints GI Reports abdominal pain, Denies melena, Reports bloating, Denies hematochezia, Denies constipation, Reports GI cramping, Denies dysphagia, Denies excessive flatus, Denies early satiety, Reports heartburn, Reports diarrhea, Denies nausea, Denies odynophagia, Denies vomiting and Denies hematemesis Skin/Breast Denies pruritus, Denies lesions, Denies rash and Denies jaundice Neuro Reports Normal hearing present and Denies Abnormal speech present Endo Denies fatigue Aller/Immun Denies throat swelling and Denies tongue swelling Physical Exam Vital Signs: Last Vital Signs Pulse 84 01/18/23 10:16 BP 133/64 01/18/23 10:16 BMI result Body Mass Index 28.3 Const General: cooperative, no acute distress, well developed and well groomed Nutritional Appearance: average body habitus and well nourished Orientation/consciousness: oriented to person, oriented to place and oriented to time Limitations: language barrier HEENT Head: Yes normocephalic and Yes atraumatic Eyes General: appearance normal, both eyes and all related structures Pupils: Equal, round and reactive pupils present Neck Neck: Yes normal visual inspection and Yes no lymphadenopathy Thyroid: Thyroid normal Resp Effort & Inspection: normal respiratory effort and able to speak in complete sentences Auscultation: clear to auscultation bilaterally Cardio Rate: regular rate Rhythm: regular rhythm Heart sounds: Normal, physiologic split S2 sound present Peripheral pulses: radial pulses present and posterior tibial pulses present GI Inspection: No distended, No Abdominal panniculus present and Yes obesity Palpation (GI): Soft to palpation, Tenderness to palpation present (GI) (Generalized), no guarding, not rigid and No hepatosplenomegaly present Percussion: Yes normal to percussion Auscultation: normal bowel sounds Rectal Exam - Female: deferred Skin General skin exam: no rashes or lesions noted, turgor normal, skin not dry, no jaundice, No spider nevi and no striae Rashes: no rashes Nails: normal Neuro General: oriented to person, oriented to place and oriented to time Cranial nerves: Yes Equal, round and reactive pupils present and Yes Normal hearing present Speech: No Abnormal speech present Extrem General: Yes normal to inspection, No clubbing, No cyanosis and No edema Psych Appearance: grossly normal and well kempt Mental Status: mental status grossly normal Speech and movement: Normal speech and movement present Affect: normal affect Attitude: cooperative Thought process: Normal thought process present and not confabulating Thought content: Normal thought content present Insight: Limited insight present (Psych) Judgement: Limited judgement present (Psych) Results Reviewed Results Reviewed: LABS: 01/11/23-[address]: Abelino Maddox MD ORDERED: CBC Auto Diff Test Result Flag Reference Site WBC 11.2 H 4.8-10.8 X10*3/uL RBC 4.48 4.20-5.50 X10*6/uL HGB 12.7 12.0-16.0 g/dl HCT 39.9 37.0-47.0 % MCV 89.1 80.0-98.0 fL MCH 28.3 27.0-33.0 pg MCHC 31.8 31.0-35.0 g/dl RDW 15.1 11.0-16.0 % PLT 305 160-400 X10*3/uL MPV 10.8 9.4-12.3 fL Neut Pct Auto 50.0 45-73 % ImGran Pct Auto 0.5 H 0.0-0.4 % Lymp Pct Auto 26.4 20-40 % Lyman Pct Auto 10.1 2-11 % Eos Pct Auto 12.6 H 0-4 % Baso Pct Auto 0.4 0-2 % NRBC Pct Auto 0.0 0.0-0.2 /100WBC ANC Neut Abs # 5.6 2.0-8.3 x10*3/uL ImGran Abs Auto 0.06 H 0.00-0.03 X10*3/uL Lymph Abs Auto 3.0 1.2-4.9 X10*3/uL Lyman Abs Auto 1.1 0.1-1.2 X10*3/uL Eos Abs Auto 1.4 H 0.0-0.4 X10*3/uL Baso Abs Auto 0.0 0.0-0.2 X10*3/uL NRBC Abs Auto 0.000 0.0-0.012 X10*3/uL ADEOLA: 01/11/23 STATUS: COMP REQ : [id number] RECD: 01/11/[address] [facility] [address]: Apurva Saavedra COMP: 01/11/23-144 ENTERED: 01/11/23-[address] [facility] [address]: Abelino Maddox MD ORDERED: Liver Panel, BMP, Lip Test Result Flag Reference Site Sodium 140 135-145 mmol/L Potassium 4.1 3.3-5.1 mmol/L CL 103 96-108 mmol/L CO2 28 22-29 mmol/L Gap 13 12-20 BUN 14 9-16 mg/dL Creat 0.76 0.5-1.4 mg/dL Estimated CrCl 61.9 Provided height and weight: 160.02 cm, 65.8 kg. eGFR (calculated from the MDRD study equation) and eCrCl (calculated from the Cockcroft-Gault equation) are based on different parameters and may not yield comparable results. If eCrCl result is absurd, please check patient's height/weight. EGFR > 60 NOTE: For -Azerbaijani individuals, multiply the result by 1.210. Chronic Kidney Disease: Estimated GFR < 60 mL/min/1.73m2 Severe Kidney Disease: Estimated GFR < 15 mL/min/1.73m2 Glucose, Random 70 60-115 mg/dL CA 10.6 # H 8.4-10.2 mg/dL Total Bili 0.4 0.0-1.0 mg/dL Direct Bili 0.2 0.0-0.5 mg/dL AST (GOT) 20 5-31 U/L ALT (GPT) 20 0-31 U/L Protein, Total 8.2 H 6.5-8.0 g/dL Alb 4.3 3.5-5.0 g/dL Alk Phos 78 39-117 U/L Lipase 16 8-78 U/L 08/19/22-[address] [facility] [address]: Abelino Maddox MD ORDERED: Alpha Feto Test Result Flag Reference Site AFPTM 5.8 ng/mL CT ABDOMEN PELVIS.01/11/23 ( ULTRASOUND OF THE ABDOMEN LIKELY CAN BE CANCELED) FINDINGS: LUNG BASES: The visualized lung bases are clear. Calcified left hilar and lymph nodes probably related to old granulomatous disease. LIVER, GALLBLADDER, AND BILIARY TREE: The liver is normal in size, shape, and attenuation. Small liver calcifications Findings will be communicated by the [facility] work flow fusing machine tender.. No focal hepatic lesion or biliary ductal dilatation is present. The gallbladder is unremarkable with no evidence of radiopaque gallstones, gallbladder wall thickening, or obvious pericholecystic inflammatory changes. PANCREAS: Unremarkable. SPLEEN: Small calcifications. Otherwise normal. ADRENAL GLANDS: Unremarkable. KIDNEYS AND URETERS: The kidneys are normal in size, shape, and attenuation. No hydronephrosis, hydroureter, or calculi seen. No perinephric stranding. BLADDER: Not full and not optimally evaluated. GASTROINTESTINAL TRACT: Stool throughout the colon suggestive of constipation. No evidence of obstruction. Mild diverticulosis of the colon. No evidence of diverticulitis. Appendix not seen. No inflammatory changes in the right lower quadrant. Wall thickening and edema of the distal stomach. There also may be stranding of the fat superior to the greater curvature of the stomach for example coronal reconstructed image 18 and sagittal reconstructed image 47. Appearance is concerning for gastritis or ulcer disease. Mass cannot be excluded. There is no free air. ABDOMINAL WALL: No significant hernia is appreciated. LYMPH NODES: Normal. VASCULAR: Unremarkable. PELVIC VISCERA: The uterus appears to have been removed. No pelvic mass. OSSEOUS STRUCTURES: Degenerative changes of the spine. CT/CT abdomen pelvis wo IV con IMPRESSION: Abnormal appearance of the stomach. There is wall thickening and edema of the distal stomach. There is abnormal soft tissue superior to the greater curvature of the distal stomach. Appearance is worrisome for gastritis or ulcer disease. Mass cannot be excluded. GI consultation recommended. Constipation. Mild diverticulosis. No evidence of diverticulitis. Evidence of old granulomatous disease. Findings will be communicated by the [employer] work flow fusing machine tender. COLONOSCOPY 12/27/22 Findings: Terminal Ileum: Not evaluated Cecum: Not evaluated Ascending Colon: Not evaluated Transverse Colon: Partially evaluated due to poor prep Descending Colon: Moderate diverticulosis Sigmoid Colon: Moderate diverticulosis Rectum: Normal Ano-rectum: Moderate internal hemorrhoids Colon preparation: Fair to poor - with presence of solid stools and undigested vegetable matter in the right and proximal transverse colon which could not be suctioned Impression and Post Procedure Diagnosis: Colonoscopy Findings: No polyps were detected Moderate diverticulosis seen in the left colon Moderate hemorrhoids on retroflexed exam. Plan: Patient has an appointment on 01/18/23 in the GI Clinic with Doretha Andres NP. Consider obtaining a stool Cologuard or a FIT test since this the 2nd attempt at colonoscopy and pt continues to have sub-optimal prep. She admitted to having mashed potatoes a 12 pm yesterday. Repeat Colonoscopy interval based on results of stool test. BIOPSY Received: 12/27/22 Diagnosis A. Colon, transverse, biopsy: Colonic mucosa with no specific change; no evidence of microscopic colitis. B. Colon, left, biopsy: Colonic mucosa with no specific change; no evidence of microscopic colitis. Assessment & Plan Assessment & Plan (1) GERD (gastroesophageal reflux disease): Code(s): K21.9 - Gastro-esophageal reflux disease without esophagitis Plan: Jordanian #Stef Agudelo The procedure needs to be repeated in 5 years due to her the family history of colorectal cancer. The procedure was well tolerated. The results were explained and the patient is agreeable to the follow-up interval as stated. The bowel pattern has returned to normal. Education was provided to tell any 1st degree relatives about their findings to be sure that they are screened by age 45. Educated that they will be put on a recall list when it is time for their repeat scope but should they move out of state or away from the hospital they will need to remember along with their primary to repeat the procedure in a timely fashion to avoid any adverse complications. shE IS HAVING A LOT OF PAIN IN THE LOW BACK THAT RADIATES TO HER LEGS. She presented to the ER for this. The pain is over her entire stomach and follows the contours of the bowel, so despite the ? findings of possible stranding in the stomach this is not the most likely cause. Her pain will be associated with eating, but does now start until 20 mins after the initiation of food. This is more c/w bowels. BUT we will schedule an EGD to be thorough. She continues on pantoprazole and simethicone for this. With discussion she is note taking the VIberzi every day only when I have 4 or more movements a day. When she does have a BM it is loose - so this is not an effective strategy. The pain is likely r/t the stopping and starting of the bowels. I educate her on this. We review all of the labs. She says her medications are being labeled in [place] which complicates compliance - I request the pharmacy label them in Jordanian. I ask her to take 1 Viberzi a day every day adn stop imodium. All written out in Jordanian for her ROV 2 weeks. (2) Abdominal bloating: Code(s): R14.0 - Abdominal distension (gaseous) (3) Irritable bowel syndrome with diarrhea: Code(s): K58.0 - Irritable bowel syndrome with diarrhea (4) Epigastric pain: Code(s): R10.13 - Epigastric pain (5) Family history of colon cancer: Comment: Sister in early 70's 08/2021=insuff prep repeat 1 year aeb Code(s): Z80.0 - Family history of malignant neoplasm of digestive organs (6) POST (nonalcoholic steatohepatitis): Comment: BASELINE Laboratory Tests 11/13/20 Total Bilirubin 0.3 AST 40 H ALT 53 H Alkaline Phosphatase 109 06/08/21 SH[facility]ON Screen NEGATIVE Anti-Mitochondrial Ab NEGATIVE Anti-Smooth Muscle Ab <20 Hepatitis A IgM Ab Nonreactive Hep Bs Antigen Negative Hep Bs Antibody NONREACTIVE Hep B Core Total Ab Nonreactive Hepatitis C Ab (EIA) Nonreactive HIV 1&2 Ab/P24 Ag 4thGn Nonreactive CURRENT LABS 08/19/22 WBC 6.1 Hgb 12.1 Hct 37.6 Estimated GFR > 60 Total Bilirubin 0.6 AST 27 ALT 32 H Alkaline Phosphatase 84 Alpha Fetoprotein 5.8 ULTRASOUND 07/28/21 MPRESSION: Slightly echogenic liver probably representing fatty infiltration similar to previous ultrasound. Code(s): K75.81 - Nonalcoholic steatohepatitis (POST) Orders: Orders EGD with [facility] - GI Use Only Today Medications: Changed From eluxadoline (Viberzi) must administer with a meal/food 75 mg PO BID 60 tabs 3RF K58.0 - Irritable bowel syndrome with diarrhea To eluxadoline (Viberzi) must administer with a meal/food, PLEASE LABEL INSTRUCTIONS IN [place] [place] !! 75 mg PO BID 60 tabs 5RF K58.0 - Irritable bowel syndrome with diarrhea Coding Level of Care Code Est Pt Level 4 (03079) Diagnoses GERD (gastroesophageal reflux disease) K21.9 Abdominal bloating R14.0 Irritable bowel syndrome with diarrhea K58.0 Epigastric pain R10.13 Family history of colon cancer Z80.0 POST (nonalcoholic steatohepatitis) K75.81
[2023-01-18 10:16] VITALS: BP 133/64; PULSE 84; BMI 28.3
== END 2023-01-18 10:49 | disposition home or self-care (01) ==
PROVIDERS: Visit Provider Nurse Practitioner
DX: K21.9 Gastro-esophageal reflux disease without esophagitis (principal); R14.0 Abdominal distension (gaseous); K58.0 Irritable bowel syndrome with diarrhea; R10.13 Epigastric pain; Z80.0 Family history of malignant neoplasm of digestive organs; K75.81 Nonalcoholic steatohepatitis (NASH)
CPT/HCPCS: 99214

== ENCOUNTER → 2023-01-18 10:13 | Outpatient (BNVA) | payer OTHER, SELFPAY | PROVIDERS: Visit Provider Nurse Practitioner | DX: K58.0 Irritable bowel syndrome with diarrhea (principal); K57.30 Diverticulosis of large intestine without perforation or abscess without bleeding; K64.8 Other hemorrhoids; K21.9 Gastro-esophageal reflux disease without esophagitis; R14.0 Abdominal distension (gaseous); R10.13 Epigastric pain; K75.81 Nonalcoholic steatohepatitis (NASH); Z80.0 Family history of malignant neoplasm of digestive organs; Z98.890 Other specified postprocedural states | CPT/HCPCS: 99212 ==

== ENCOUNTER 2023-01-20 12:31 | Outpatient (REF) | payer OTHER, SELFPAY ==
--- NOTE | ~2023-01-20 | XR_ITS ---
EXAMINATION: XR LUMBAR SPINE XR HIPS, BILATERAL CLINICAL INDICATION: Acute bilateral hip pain and midline low back pain. COMPARISON: 07/11/2017 bilateral hips, 08/12/2018 lumbar spine. TECHNIQUE: 4 views of the lumbar spine. AP and lateral views of each hip. FINDINGS: Left Hip: Coro-ch-cztopwjd axial joint space narrowing. Alignment preserved. Increased soft tissue calcification adjacent to the greater trochanter. Right Hip: Ukam-bl-ddcqdjcq axial joint space narrowing. Alignment preserved. Lumbar Spine: Rounded pelvic calcifications are likely vascular. Moderate degenerative changes with hypertrophic change in the bilateral sacroiliac joints. The bones are diffusely demineralized. Facet arthritis in the lower lumbar spine. Lumbar vertebral body heights are preserved. Mild multilevel degenerative changes in the lumbar spine with small osteophytes. Minimal anterolisthesis of L4 on L5. Degenerative changes in the imaged lower thoracic spine. XR/XR hip LT min 2V IMPRESSION: 1. Aoxa-fh-frzkdgqt degenerative changes in the bilateral hips. 2. Mild multilevel lumbar spondylosis. Additional imaging with CT scan or MRI should be considered for better visualization as these modalities are much more sensitive for detection of fracture or other underlying pathology.
--- NOTE | ~2023-01-20 | XR_ITS ---
EXAMINATION: XR LUMBAR SPINE XR HIPS, BILATERAL CLINICAL INDICATION: Acute bilateral hip pain and midline low back pain. COMPARISON: 07/11/2017 bilateral hips, 08/12/2018 lumbar spine. TECHNIQUE: 4 views of the lumbar spine. AP and lateral views of each hip. FINDINGS: Left Hip: Jlgn-td-ulwgcqgy axial joint space narrowing. Alignment preserved. Increased soft tissue calcification adjacent to the greater trochanter. Right Hip: Pbig-wd-bqztqhlk axial joint space narrowing. Alignment preserved. Lumbar Spine: Rounded pelvic calcifications are likely vascular. Moderate degenerative changes with hypertrophic change in the bilateral sacroiliac joints. The bones are diffusely demineralized. Facet arthritis in the lower lumbar spine. Lumbar vertebral body heights are preserved. Mild multilevel degenerative changes in the lumbar spine with small osteophytes. Minimal anterolisthesis of L4 on L5. Degenerative changes in the imaged lower thoracic spine. XR/XR hip RT min 2V IMPRESSION: 1. Xmep-dz-eovjaiuu degenerative changes in the bilateral hips. 2. Mild multilevel lumbar spondylosis. Additional imaging with CT scan or MRI should be considered for better visualization as these modalities are much more sensitive for detection of fracture or other underlying pathology.
--- NOTE | ~2023-01-20 | XR_ITS ---
EXAMINATION: XR LUMBAR SPINE XR HIPS, BILATERAL CLINICAL INDICATION: Acute bilateral hip pain and midline low back pain. COMPARISON: 07/11/2017 bilateral hips, 08/12/2018 lumbar spine. TECHNIQUE: 4 views of the lumbar spine. AP and lateral views of each hip. FINDINGS: Left Hip: Cyoy-ai-imefxrzc axial joint space narrowing. Alignment preserved. Increased soft tissue calcification adjacent to the greater trochanter. Right Hip: Otgc-ya-fbbpzxvy axial joint space narrowing. Alignment preserved. Lumbar Spine: Rounded pelvic calcifications are likely vascular. Moderate degenerative changes with hypertrophic change in the bilateral sacroiliac joints. The bones are diffusely demineralized. Facet arthritis in the lower lumbar spine. Lumbar vertebral body heights are preserved. Mild multilevel degenerative changes in the lumbar spine with small osteophytes. Minimal anterolisthesis of L4 on L5. Degenerative changes in the imaged lower thoracic spine. XR/XR lumbar spine 2-3V IMPRESSION: 1. Ccvx-fy-oopkkobv degenerative changes in the bilateral hips. 2. Mild multilevel lumbar spondylosis. Additional imaging with CT scan or MRI should be considered for better visualization as these modalities are much more sensitive for detection of fracture or other underlying pathology.
== END 2023-01-20 12:32 | disposition home or self-care (01) ==
LOC: HO.HHCX 12:31
PROVIDERS: Visit Provider Internal Medicine
DX: M54.50 Low back pain, unspecified (principal); M25.551 Pain in right hip; M25.552 Pain in left hip
CPT/HCPCS: 72100; 73502

== ENCOUNTER 2023-02-01 09:31 | Outpatient (AMB) | payer OTHER, SELFPAY ==
--- NOTE | 2023-02-01 09:32 | MHC.OFFVIS ---
Intake Vital Signs 02/01/23 09:33 Height 5 ft 3 in Weight 159 lb 9.835 oz BMI 28.3 BP 107/66 Blood Pressure Location Lt brachial Position Sitting Pulse 87 Intake Visit Reasons: 2 week follow up Intake Note: Patient presnts to in office visit today in 2 weeks follow up of abdominal bloating CC: Patient reports she has been doing well since last visit and Viberzi has been working well. She states her stools are always soft. Denies any new GI symptom today. 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 The procedure was well tolerated. The results were explained and the patient is agreeable to the follow-up interval as stated. The bowel pattern has returned to normal. Education was provided to tell any 1st degree relatives about their findings to be sure that they are screened by age 45. Educated that they will be put on a recall list when it is time for their repeat scope but should they move out of state or away from the hospital they will need to remember along with their primary to repeat the procedure in a timely fashion to avoid any adverse complications. shE IS HAVING A LOT OF PAIN IN THE LOW BACK THAT RADIATES TO HER LEGS. She presented to the ER for this. The pain is over her entire stomach and follows the contours of the bowel, so despite the ? findings of possible stranding in the stomach this is not the most likely cause. Her pain will be associated with eating, but does now start until 20 mins after the initiation of food. This is more c/w bowels. BUT we will schedule an EGD to be thorough. She continues on pantoprazole and simethicone for this. With discussion she is note taking the VIberzi every day only when I have 4 or more movements a day. When she does have a BM it is loose - so this is not an effective strategy. The pain is likely r/t the stopping and starting of the bowels. I educate her on this. We review all of the labs. She says her medications are being labeled in Irish which complicates compliance - I request the pharmacy label them in Croatian. I ask her to take 1 Viberzi a day every day adn stop imodium. All written out in Croatian for her ROV 2 weeks. (2) Abdominal bloating: Code(s): R14.0 - Abdominal distension (gaseous) (3) Irritable bowel syndrome with diarrhea: Code(s): K58.0 - Irritable bowel syndrome with diarrhea (4) Epigastric pain: Code(s): R10.13 - Epigastric pain (5) Family history of colon cancer: Comment: Sister in early 70's 08/2021=insuff prep repeat 1 year aeb Code(s): Z80.0 - Family history of malignant neoplasm of digestive organs (6) POST (nonalcoholic steatohepatitis): Comment: BASELINE Laboratory Tests 11/13/20 Total Bilirubin 0.3 AST 40 H ALT 53 H Alkaline Phosphatase 109 06/08/21 SHARON Screen NEGATIVE Anti-Mitochondrial Ab NEGATIVE Anti-Smooth Muscle Ab <20 Hepatitis A IgM Ab Nonreactive Hep Bs Antigen Negative Hep Bs Antibody NONREACTIVE Hep B Core Total Ab Nonreactive Hepatitis C Ab (EIA) Nonreactive HIV 1&2 Ab/P24 Ag 4thGn Nonreactive CURRENT LABS 08/19/22 WBC 6.1 Hgb 12.1 Hct 37.6 Estimated GFR > 60 Total Bilirubin 0.6 AST 27 ALT 32 H Alkaline Phosphatase 84 Alpha Fetoprotein 5.8 ULTRASOUND 07/28/21 MPRESSION: Slightly echogenic liver probably representing fatty infiltration similar to previous ultrasound. Code(s): K75.81 - Nonalcoholic steatohepatitis (POST) Orders: Orders EGD with Wilson - G I Use Only Today Medications: Changed From eluxadoline (Viber zi) must admini ster with a meal/f ood 75 mg PO BID 60 t abs 3RF K58.0 - Irritable bowel syndrome wit h diarrhea To eluxadoline (Viber zi) must admini ster with a meal/f ood, PLEASE LABEL INSTRUCTIONS IN SP LOTUS !! 75 mg PO BID 60 t abs 5RF K58.0 - Irritable bowel syndrome wit h diarrhea Laboratory Tests 01/11/23 13:53 WBC 11.2 H Hgb 12.7 Hct 39.9 Plt Count 305 Estimated GFR > 60 Total Bilirubin 0.4 Direct Bilirubin 0.2 AST 20 ALT 20 Alkaline Phosphata se 78 EGD Scheduled for March Biopsy CORRESPONDENCE On 01/25/23 @ 10:07 Mariama Willson Wrote To Mckenna please advise if alt if agreeable w/ alt On 01/25/23 @ 10:06 Debbie Benton Wrote To MckennaAugust (2) Zhanna from the pharmacy called and saying the Citrucel 500 mg is in back order they are need a new RX for replacement and the recommendation is Fiber lax 625 mg any question you can call her back at [phone]. TODAY'S VISIT Croatian #Dtr translates per pt request. She is now taking the Viberzi bid 75mcg and her stooling problems are well controlled and she is happy. She continues on pantoprazole and simethicone for GERD. She now has a date for the EGD in March. ROV 6 mos and after the EGD. EGD Scheduled for March Biopsy [facility] Medical History (Updated 02/01/23 @ 09:39 by SAPPHIRE Travis) Abdominal bloating COVID-19 vaccine series completed Lumbar spondylosis Cervical spondylitis Polyarthralgia Mild recurrent major depression Muscle weakness Dyslipidemia Elevated CPK Osteopenia Diabetic 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 associated with type 2 diabetes mellitus transferrer (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 Diabetes type 2, controlled Lab test positive for detection of COVID-19 virus Urge urinary incontinence Moderate asthma Vertigo Polyarthralgia Depression with anxiety Essential hypertension Diabetes mellitus Surgical History History of surgery on extremity Hx of colonoscopy History of esophagogastroduodenoscopy (EGD) S/P SHERRY-BSO (total abdominal hysterectomy and bilateral salpingo-oophorectomy) History of tubal ligation Family History Father Hypertension Mother Cancer Sister Breast cancer Social History Household Members: Significant Other Housing: House Alcohol intake: never Patient Tobacco Use Status: Never used Tobacco e-Cigarette/Vaping Use: Never Used Second Hand Smoke Exposure: No service: No Current occupational status: disabled Review of Systems Const Denies fatigue, Denies fever(s), Denies night sweats, Denies poor appetite and Denies weight loss ENT Reports Normal hearing present, Denies dental pain, Denies dysphagia, Denies hearing loss, Denies mouth pain, Denies odynophagia, Denies throat swelling, Denies tongue swelling and Reports other (Dentition adequate) Card Reports no additional complaints Resp Reports no additional complaints GI Denies abdominal pain, Denies melena, Denies bloating, Denies hematochezia, Denies constipation, Denies GI cramping, Denies dysphagia, Denies excessive flatus, Denies early satiety, Reports heartburn, Reports diarrhea, Denies nausea, Denies odynophagia, Denies vomiting and Denies hematemesis Skin/Breast Denies pruritus, Denies lesions, Denies rash and Denies jaundice Neuro Reports Normal hearing present and Denies Abnormal speech present Endo Denies fatigue Aller/Immun Denies throat swelling and Denies tongue swelling Physical Exam Vital Signs: Last Vital Signs Pulse 87 02/01/23 09:33 BP 107/66 02/01/23 09:33 BMI result Body Mass Index 28.3 Const General: cooperative, no acute distress, well developed and well groomed Nutritional Appearance: average body habitus and well nourished Orientation/consciousness: oriented to person, oriented to place and oriented to time Limitations: No language barrier HEENT Head: Yes normocephalic and Yes atraumatic Eyes General: appearance normal, both eyes and all related structures Pupils: Equal, round and reactive pupils present Neck Neck: Yes normal visual inspection and Yes no lymphadenopathy Thyroid: Thyroid normal Resp Effort & Inspection: normal respiratory effort and able to speak in complete sentences Auscultation: clear to auscultation bilaterally Cardio Rate: regular rate Rhythm: regular rhythm Heart sounds: Normal, physiologic split S2 sound present Peripheral pulses: radial pulses present and posterior tibial pulses present GI Inspection: No distended and No Abdominal panniculus present Palpation (GI): Soft to palpation, nontender, no guarding, not rigid, No hepatosplenomegaly present and Hepatosplenomegaly present Percussion: Yes normal to percussion Auscultation: normal bowel sounds Rectal Exam - Female: deferred Skin General skin exam: no rashes or lesions noted, turgor normal, skin not dry, no jaundice, No spider nevi and no striae Rashes: no rashes Nails: normal Neuro General: oriented to person, oriented to place and oriented to time Cranial nerves: Yes Equal, round and reactive pupils present and Yes Normal hearing present Speech: No Abnormal speech present Extrem General: Yes normal to inspection, No clubbing, No cyanosis and No edema Psych Appearance: grossly normal and well kempt Mental Status: mental status grossly normal Speech and movement: Normal speech and movement present Affect: normal affect Attitude: cooperative Thought process: Normal thought process present and not confabulating Thought content: Normal thought content present Insight: Limited insight present (Psych) Judgement: Limited judgement present (Psych) Assessment & Plan Assessment & Plan (1) GERD (gastroesophageal reflux disease): Code(s): K21.9 - Gastro-esophageal reflux disease without esophagitis Plan: Croatian #Dtr translates per pt request. She is now taking the Viberzi bid 75mcg and her stooling problems are well controlled and she is happy. She continues on pantoprazole and simethicone for GERD. She now has a date for the EGD in March. ROV 6 mos and after the EGD. EGD Scheduled for March Biopsy (2) Abdominal bloating: Code(s): R14.0 - Abdominal distension (gaseous) (3) Irritable bowel syndrome with diarrhea: Code(s): K58.0 - Irritable bowel syndrome with diarrhea (4) Epigastric pain: Code(s): R10.13 - Epigastric pain (5) Family history of colon cancer: Comment: Sister in early 70's 08/2021=insuff prep repeat 1 year aeb Code(s): Z80.0 - Family history of malignant neoplasm of digestive organs (6) POST (nonalcoholic steatohepatitis): Comment: BASELINE Laboratory Tests 11/13/20 Total Bilirubin 0.3 AST 40 H ALT 53 H Alkaline Phosphatase 109 06/08/21 SHARON Screen NEGATIVE Anti-Mitochondrial Ab NEGATIVE Anti-Smooth Muscle Ab <20 Hepatitis A IgM Ab Nonreactive Hep Bs Antigen Negative Hep Bs Antibody NONREACTIVE Hep B Core Total Ab Nonreactive Hepatitis C Ab (EIA) Nonreactive HIV 1&2 Ab/P24 Ag 4thGn Nonreactive CURRENT LABS 01/11/23 13:53 WBC 11.2 H Hgb 12.7 Hct 39.9 Plt Count 305 Estimated GFR > 60 Total Bilirubin 0.4 Direct Bilirubin 0.2 AST 20 ALT 20 Alkaline Phosphatase 78 ULTRASOUND 07/28/21 MPRESSION: Slightly echogenic liver probably representing fatty infiltration similar to previous ultrasound. No need to repeat ultrasound unless transaminases start to rise Code(s): K75.81 - Nonalcoholic steatohepatitis (POST) Coding Level of Care Code Est Pt Level 3 (01033) Diagnoses GERD (gastroesophageal reflux disease) K21.9 Abdominal bloating R14.0 Irritable bowel syndrome with diarrhea K58.0 Epigastric pain R10.13 Family history of colon cancer Z80.0 POST (nonalcoholic steatohepatitis) K75.81
[2023-02-01 09:33] VITALS: BP 107/66; PULSE 87; BMI 28.3
== END 2023-02-01 09:46 | disposition home or self-care (01) ==
PROVIDERS: PCP Internal Medicine; Visit Provider Nurse Practitioner
DX: K21.9 Gastro-esophageal reflux disease without esophagitis (principal); R14.0 Abdominal distension (gaseous); K58.0 Irritable bowel syndrome with diarrhea; R10.13 Epigastric pain; Z80.0 Family history of malignant neoplasm of digestive organs; K75.81 Nonalcoholic steatohepatitis (NASH)
CPT/HCPCS: 99213

== ENCOUNTER → 2023-02-01 09:31 | Outpatient (BNVA) | payer OTHER, SELFPAY | PROVIDERS: PCP Internal Medicine; Visit Provider Nurse Practitioner | DX: R14.0 Abdominal distension (gaseous) (principal); R10.13 Epigastric pain; K58.0 Irritable bowel syndrome with diarrhea; K21.9 Gastro-esophageal reflux disease without esophagitis; K75.81 Nonalcoholic steatohepatitis (NASH); Z80.0 Family history of malignant neoplasm of digestive organs | CPT/HCPCS: 99212 ==

== ENCOUNTER 2023-02-16 09:39 | Outpatient (REF) | payer OTHER, SELFPAY ==
--- NOTE | ~2023-02-16 | XR_ITS ---
EXAMINATION: XR BILATERAL HIPS WITH AP PELVIS CLINICAL INFORMATION: Pain COMPARISON: Right and left hip radiographs from 01/20/2023 TECHNIQUE: Single frontal view of the pelvis 2 views of each hip FINDINGS: No acute visible fracture or dislocation. Mild to moderate degenerative changes the bilateral femoral acetabular joint. Enthesopathy along the left greater trochanter. Degenerative arthropathy of the lumbosacral spine. Joint spaces and alignment are otherwise maintained. Soft tissues are unremarkable. XR/XR hip BI w PEL1V IMPRESSION: 1. No acute visible fracture or dislocation. 2. Mild to moderate degenerative changes the bilateral femoral acetabular joint. 3. Enthesopathy along the left greater trochanter.
== END 2023-02-16 09:40 | disposition home or self-care (01) ==
LOC: HO.XRAY 09:39
PROVIDERS: Visit Provider Nurse Practitioner Family
DX: M25.552 Pain in left hip (principal); M25.551 Pain in right hip
CPT/HCPCS: 73521

== ENCOUNTER 2023-04-04 08:01 | Day surgery (SDC) | payer OTHER, SELFPAY ==
[2023-03-29 14:48] VITALS: BMI 28.3
--- NOTE | 2023-03-30 09:17 | P.CONAN_ITS ---
HPI - Anesthesia Eval Consult details Narrative: 72yo F for Upper Endoscopy s/p Cullen 12/2022 with MAC Anesthesia Pre-Procedure Meds Is the patient on any of the following meds?: Dulaglutide (Trulicity) If Yes to any meds - educate patient: Pt education - increased risk of aspiration and Pt education - possibility of cancelled proc at provider's discretion PMFSH Active Problems Active Problems: All Active Problems (Updated 02/01/23 @ 09:39 by SAPPHIRE Travis) Asthma (Acute) Pre-op examination (Acute) Osteoarthritis of hands, bilateral (Acute) Urinary incontinence (Acute) Nocturia (Acute) OAB (overactive bladder) (Acute) Urinary urgency (Acute) Urinary frequency (Acute) Cervicalgia (Acute) Fall (Acute) GERD (gastroesophageal reflux disease) (Acute) Abdominal bloating (Acute) Irritable bowel syndrome with diarrhea (Acute) Epigastric pain (Acute) Elevated aldolase level (Acute) Family history of colon cancer (Acute) POST (nonalcoholic steatohepatitis) (Acute) Bilateral hand pain (Acute) Cervical spondylitis (Acute) Lumbar spondylosis (Acute) Polyarthralgia (Acute) Mild recurrent major depression (Acute) Muscle weakness (Acute) Dyslipidemia (Acute) Elevated CPK (Acute) Osteopenia (Acute) Diabetic 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 associated with type 2 diabetes mellitus (Acute) penitentiary (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 (Acute) Diabetes type 2, controlled (Acute) Lab test positive for detection of COVID-19 virus (Acute) Urge urinary incontinence (Acute) Moderate asthma (Acute) Vertigo (Acute) Polyarthralgia (Acute) Depression with anxiety (Acute) Essential hypertension (Acute) Diabetes mellitus (Acute) Past Medical History Medical History (Updated 02/01/23 @ 09:39 by SAPPHIRE Travis) Abdominal bloating COVID-19 vaccine series completed Lumbar spondylosis Cervical spondylitis Polyarthralgia Mild recurrent major depression Muscle weakness Dyslipidemia Elevated CPK Osteopenia Diabetic 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 associated with type 2 diabetes mellitus 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 Diabetes type 2, controlled Lab test positive for detection of COVID-19 virus Urge urinary incontinence Moderate asthma Vertigo Polyarthralgia Depression with anxiety Essential hypertension Diabetes mellitus Family History Family History Father Hypertension Mother Cancer Sister Breast cancer Family history of problems with anesthesia: No Surgical History Surgical History History of surgery on extremity Hx of colonoscopy History of esophagogastroduodenoscopy (EGD) S/P SHERRY-BSO (total abdominal hysterectomy and bilateral salpingo-oophorectomy) History of tubal ligation History of Problems with Anesthesia: No Social History Social History Household Members: Significant Other Housing: House Alcohol intake: never Patient Tobacco Use Status: Never used Tobacco e-Cigarette/Vaping Use: Never Used Second Hand Smoke Exposure: No service: No Current occupational status: disabled [employer] Allergies Allergy/AdvReac Type Severity Reaction Status Date / Time No Known Allergies Allergy Verified 02/01/23 09:36 [No Known Allergies*] Home Medications Medication Instructions Recorded Confirmed Last Taken Type trazodone 50 mg tablet 25 mg PO BEDTIME PRN Pain 07/08/20 08/02/22 Unknown History pregabalin 100 mg capsule (Lyrica) 100 mg PO BID 08/07/21 08/02/22 Unknown History albuterol sulfate 90 mcg/actuation 0 mcg inhalation 09/17/21 08/02/22 Unknown History aerosol inhaler (Ventolin HFA) insulin glargine 100 unit/mL (3 7 unit subcut DAILY 09/17/21 08/02/22 Unknown History mL) subcutaneous pen (Lantus Solostar U-100 Insulin) meclizine 25 mg tablet 25 mg PO BID PRN 03/25/22 08/02/22 Unknown History polymyxin B sulfate 10,000 ml ophthalmic (eye) 03/25/22 08/02/22 Unknown History unit-trimethoprim 1 mg/mL eye drops venlafaxine 37.5 mg 37.5 mg PO DAILY depressive 08/10/22 Unknown History capsule,extended release 24 hr disorder Exam Height,Weight and Vital Signs: Height 5 ft 3 in Weight 72.399 kg Pertinent Lab Results Pertinent Lab Results: Laboratory Tests 01/11/23 13:53 WBC 11.2 H Hgb 12.7 Hct 39.9 Plt Count 305 Sodium 140 Potassium 4.1 Chloride 103 Carbon Dioxide 28 BUN 14 Creatinine 0.76 Assessment and Plan Assessment Anesthesia Assessment: Chart Reviewed Final Anesthetic Review Family History of Problems with Anesthesia: No History of Problems with Anesthesia: No
--- NOTE | 2023-04-04 08:17 | P.HPSUR_ITS ---
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 Diabetes type 2, controlled Lab test positive for detection of COVID-19 virus Urge urinary incontinence Moderate asthma Vertigo Polyarthralgia Depression with anxi) History of Previous Operations: Relevant previous surgery/procedure and date(s) (History of surgery on extremity Hx of colonoscopy History of esophagogastroduodenoscopy (EGD) S/P SHERRY-BSO (total abdominal hysterectomy and bilateral salpingo-oophorectomy) History of tubal ligation) Allergies: Allergies Allergy/AdvReac Type Severity Reaction Status Date / Time No Known Allergies Allergy Verified 02/01/23 09:36 [No Known Allergies*] Review of Systems Sugical H&P ROS: Negative: Constitution, Cardiovascular, Respiratory and Gastrointestinal Exam Surgical H&P Exam: Normal: Heart, Normal: Lungs, Normal: Extremities and Normal: Abdomen Plan Diagnosis/Plan: Unchanged I have reviewed the history and physical and performed a pertinent physical examination on my patient. No changes have occurred unless specified. Time Spent With Patient Time: Total time managing care of this patient today ____ minutes.
[2023-04-04 08:20] VITALS: BP 160/86; PULSE 79; RESP 20; TEMP 36.7; O2SAT 96
--- NOTE | 2023-04-04 08:23 | HO.ANESPROP2 ---
[facility] Active Problems Active Problems: All Active Problems (Updated 02/01/23 @ 09:39 by SAPPHIRE Travis) Asthma (Acute) Pre-op examination (Acute) Osteoarthritis of hands, bilateral (Acute) Urinary incontinence (Acute) Nocturia (Acute) OAB (overactive bladder) (Acute) Urinary urgency (Acute) Urinary frequency (Acute) Cervicalgia (Acute) Fall (Acute) GERD (gastroesophageal reflux disease) (Acute) Abdominal bloating (Acute) Irritable bowel syndrome with diarrhea (Acute) Epigastric pain (Acute) Elevated aldolase level (Acute) Family history of colon cancer (Acute) POST (nonalcoholic steatohepatitis) (Acute) Bilateral hand pain (Acute) Cervical spondylitis (Acute) Lumbar spondylosis (Acute) Polyarthralgia (Acute) Mild recurrent major depression (Acute) Muscle weakness (Acute) Dyslipidemia (Acute) Elevated CPK (Acute) Osteopenia (Acute) Diabetic 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 associated with type 2 diabetes mellitus (Acute) 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 (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) Diabetes type 2, controlled (Acute) Lab test positive for detection of COVID-19 virus (Acute) Urge urinary incontinence (Acute) Moderate asthma (Acute) Vertigo (Acute) Polyarthralgia (Acute) Depression with anxiety (Acute) Essential hypertension (Acute) Diabetes mellitus (Acute) Past Medical History Medical History (Updated 02/01/23 @ 09:39 by SAPPHIRE Travis) Abdominal bloating COVID-19 vaccine series completed Lumbar spondylosis Cervical spondylitis Polyarthralgia Mild recurrent major depression Muscle weakness Dyslipidemia Elevated CPK Osteopenia Diabetic 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 associated with type 2 diabetes mellitus 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 Diabetes type 2, controlled Lab test positive for detection of COVID-19 virus Urge urinary incontinence Moderate asthma Vertigo Polyarthralgia Depression with anxiety Essential hypertension Diabetes mellitus Family History Family History Father Hypertension Mother Cancer Sister Breast cancer Family history of problems with anesthesia: No Surgical History Surgical History History of surgery on extremity Hx of colonoscopy History of esophagogastroduodenoscopy (EGD) S/P SHERRY-BSO (total abdominal hysterectomy and bilateral salpingo-oophorectomy) History of tubal ligation History of Problems with Anesthesia: No Social History Household Members: Significant Other Housing: House Alcohol intake: never Patient Tobacco Use Status: Never used Tobacco e-Cigarette/Vaping Use: Never Used Second Hand Smoke Exposure: No Advance Directives: No Advance Directives Information Provided: Yes service: No Current occupational status: disabled Meds Allergies Allergy/AdvReac Type Severity Reaction Status Date / Time No Known Allergies Allergy Verified 02/01/23 09:36 [No Known Allergies*] Active Medications: Current Medications Albuterol Sulfate (Albuterol Sulfate (0.083%) 2.5 Mg/3 Ml Vial.Neb) 2.5 mg INHALE ONCE PRN PRN Reason: Shortness of Breath/Wheezing Lactated Ringer's (Lr) 1,000 mls @ 100 mls/hr IVCONT .Q10H [facility] Home Medications Medication Instructions Recorded Confirmed Last Taken Type trazodone 50 mg tablet 25 mg PO BEDTIME PRN Pain 07/08/20 08/02/22 Unknown History pregabalin 100 mg capsule (Lyrica) 100 mg PO BID 08/07/21 08/02/22 Unknown History albuterol sulfate 90 mcg/actuation 0 mcg inhalation 09/17/21 08/02/22 Unknown History aerosol inhaler (Ventolin HFA) insulin glargine 100 unit/mL (3 7 unit subcut DAILY 09/17/21 08/02/22 Unknown History mL) subcutaneous pen (Lantus Solostar U-100 Insulin) meclizine 25 mg tablet 25 mg PO BID PRN 03/25/22 08/02/22 Unknown History polymyxin B sulfate 10,000 ml ophthalmic (eye) 03/25/22 08/02/22 Unknown History unit-trimethoprim 1 mg/mL eye drops venlafaxine 37.5 mg 37.5 mg PO DAILY depressive 08/10/22 Unknown History capsule,extended release 24 hr disorder Exam Height,Weight and Vital Signs: Height 5 ft 3 in Weight 72.399 kg Airway Mallampati Class: II TM Dist: >3cm Neck ROM: Full Denture: Upper and Lower Heart: rrr Lungs: cta Assessment and Plan Assessment Anesthesia Assessment: Anesthesia Plan Discussed and Chart Reviewed Final Anesthetic Review Family History of Problems with Anesthesia: No History of Problems with Anesthesia: No NPO: Yes ASA Class: III Final Preanesthetic Review: No Changes in Pt Med Stat, Meds/Allgs Chart Reviewed and Consent Obtained/Reviewed Patient Risk: Intermediate Procedure Risk: Intermediate Anesthetic Plan Anesthetic Plan: MAC: Disposition: Standard PACU
[2023-04-04] MEDS: Lactated Ringers 1,000 ML 100 ML IVCONT (08:41)
[2023-04-04 08:42] LABS: Glucose, Whole Blood 96 mg/dL (60-115)
--- NOTE | 2023-04-04 08:44 | W.PM.OPN ---
Operative Note Operative Note Date of Service: 04/04/23 Narrative: FLEXIBLE TRANSORAL UPPER GASTROINTESTINAL ENDOSCOPY WITH BIOPSIES Pre-op diagnosis: GERD, abdominal pain, abnormal CT scan of the stomach Post-op diagnosis: Hiatal hernia, gastritis, gastric polyps Endoscopist:? Elva Nicole MD Anesthesia:?MAC Consent: Indications for the procedure and potential complications of bleeding, perforation, reaction to medications and missed diagnosis were discussed with the patient and informed consent was obtained. Instrument: Olympus GIF H 190 mid size upper endoscope Monitoring: Vital signs and clinical assessment, continuous EKG monitoring, Pulse oximetry, Carbon Dioxide monitoring and blood pressure monitoring were done throughout the procedure. Procedure: The patient was placed in the left lateral decubitis position and pre-procedure medications were administered and a bite block was placed. The endoscope was inserted into the mouth and advanced under direct vision to the third part of duodenum. A careful inspection was made as the upper endoscope was withdrawn including a retroflexed examination of the proximal stomach; Findings and interventions are described below. Findings: Larynx: Normal Esophagus: GE junction at 35 cms, hiatal hernia 35 to 38 cms. No esophagitis or Mckeon's. Stomach: A few 10-15 mm benign appearing polyps in the gastric body - biopsied. Mild gastric erythema. Biopsies were obtained. Grade 4 flap valve on retroflexed examination of the cardia. (No mass or ulcer noted along the greater curvature) Duodenum: Normal bulb and descending duodenum. Biopsies were obtained from 3rd part of the duodenum to check for celiac sprue Intervention: Biopsies as noted above Impression and Post Procedure Diagnosis: Endoscopy Findings: ESOPHAGUS: Hiatal hernia STOMACH: Gastritis and gastric polyps DUODENUM: Normal - biopsied to check for celiac sprue Plan: Await pathology results Patient has an appointment on 04/19/23in the GI [facility] with Doretha Andres NP . Above findings were reviewed with the patient with the help of [facility] [employer] foreign language tutor, Shelley, and Hiatal hernia and Gastric polyps handouts were given in the discharge area
[2023-04-04 09:06] VITALS: BP 119/69; PULSE 69; RESP 16; TEMP 36.2; O2SAT 95
[2023-04-04 09:21] VITALS: BP 150/87; PULSE 63; RESP 16; TEMP 36.2; O2SAT 97
== END 2023-04-04 10:10 | disposition home or self-care (01) ==
PROVIDERS: PCP Internal Medicine; Visit Provider Internal Medicine Gastroenterology
PROC: 0DJ08ZZ Inspection of Upper Intestinal Tract, Via Natural or Artificial Opening Endoscopic (ICD-10-PCS; CPT 43235; principal; 2023-04-04 09:20)
DX: K29.50 Unspecified chronic gastritis without bleeding (principal); K21.9 Gastro-esophageal reflux disease without esophagitis; K31.7 Polyp of stomach and duodenum; K44.9 Diaphragmatic hernia without obstruction or gangrene; E78.5 Hyperlipidemia, unspecified; R74.8 Abnormal levels of other serum enzymes; M85.80 Other specified disorders of bone density and structure, unspecified site; J45.909 Unspecified asthma, uncomplicated; I10 Essential (primary) hypertension; N39.41 Urge incontinence; R42 Dizziness and giddiness; M25.50 Pain in unspecified joint; E11.42 Type 2 diabetes mellitus with diabetic 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; Z79.4 Long term (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; Z79.51 Long term (current) use of inhaled steroids; Z79.899 Other long term (current) drug therapy; F41.8 Other specified anxiety disorders; Z98.890 Other specified postprocedural states
CPT/HCPCS: 43239; 82947; 88305; 88342; J2704

== ENCOUNTER → 2023-04-04 08:01 | Outpatient (BNV) | payer OTHER, SELFPAY | PROVIDERS: PCP Internal Medicine; Visit Provider Internal Medicine Gastroenterology | DX: K44.9 Diaphragmatic hernia without obstruction or gangrene (principal); K29.70 Gastritis, unspecified, without bleeding; K31.7 Polyp of stomach and duodenum | CPT/HCPCS: 43239 ==

== ENCOUNTER 2023-04-15 13:23 | Outpatient (AMB) | payer OTHER, SELFPAY ==
--- NOTE | 2023-04-15 13:27 | MHC.OFFVIS ---
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 Allergies No Known Allergies [No Known Allergies*] Allergy (Verified 04/15/23 13:37) Medication List - Last Reconciled 04/15/23 by Tati Beltran RN acetaminophen (Tylenol Extra Strength) 500 mg PO QID PRN acetaminophen ER (Mapap Arthritis Pain) 650 mg PO Q12H PRN albuterol sulfate 2.5 mg (3 mL) inhalation TID 30 days albuterol sulfate 90 mcg/actuation (Ventolin HFA) 0 mcg inhalation alcohol swabs (Alcohol Prep Pads) 1 pad topical QID 0 days amlodipine 5 mg PO DAILY aspirin 81 mg PO DAILY blood sugar diagnostic (FreeStyle Lite Strips) test three times a day calcium carbonate 600 mg PO BID 30 days calcium polycarbophil (Fiber Laxative (calcium polycarbophil)) 1,250 mg (2 x 625 mg) PO BID dulaglutide 1.5 mg (0.5 mL) subcut QWEEK 30 days eluxadoline (Viberzi) 75 mg PO BID empagliflozin-metformin 12.5-1,000 mg (Synjardy) 1 tab PO BID fluticasone propionate 220 mcg/actuation (Flovent HFA) 1 puff PO BID 90 days hydrocortisone 2.5% 1 appl topical DAILY PRN 30 days hydroxyzine HCl 10 mg PO TID PRN 30 days insulin glargine (Lantus Solostar U-100 Insulin) 7 units subcut DAILY lancets (FreeStyle Lancets) test three times a day lidocaine 5% (Lidoderm) 1 patch topical DAILY lisinopril 30 mg PO DAILY 90 days loratadine 10 mg PO DAILY 90 days meclizine 25 mg PO BID PRN methylcellulose (laxative) (Citrucel) 1,000 mg (2 x 500 mg) PO DAILY 30 days montelukast 10 mg PO DAILY oxybutynin chloride ER 10 mg PO DAILY 90 days pantoprazole 40 mg PO DAILY 90 days polymyxin B sulf-trimethoprim 10,000 unit- 1 mg/mL mL ophthalmic (eye) pregabalin (Lyrica) 100 mg PO BID simethicone 180 mg PO TID 30 days sod picosulf-mag ox-citric ac 10 mg-3.5 gram- 12 gram/160 mL (Clenpiq) 160 mL PO DAILY 2 doses sod picosulf-mag ox-citric ac 10 mg-3.5 gram- 12 gram/160 mL (Clenpiq) 160 mL PO DAILY 2 doses tramadol 50 mg PO BID PRN 30 days trazodone 25 mg PO BEDTIME PRN venlafaxine ER 37.5 mg PO DAILY HPI HPI Comments History of Present Illness Details 72yoF presents for follow-up of osteoarthritis. She has a history of elevated aldolase.? Last seen in August 2022. Patient presents today for follow-up of her OA. She reports bilateral hand pain that is constant and is worse with use. She states that she still has some numbness in both hands, despite bilateral carpal tunnel surgery 3 years ago. She states that Lyrica helps her pain some, she is also taking this for diabetic 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. She is also taking tramadol, Tylenol and cyclobenzaprine for her pain. She denies joint swelling or prolonged morning stiffness. Patient states that she followed with [facility] for her carpal tunnel surgery and received injections in her hands in the past. She reports disrupted sleep, skin sensitivity and depression. She follows with psychiatrist and therapist. She is currently taking hydroxyzine, venlafaxine and trazodone. She was previously followed by Dr. Gauthier for elevated aldolase. Patient underwent a muscle biopsy with Dr. Arias and the results were not consistent with a myositis, rather more consistent with muscle atrophy due to her diabetic neuropathy.? She denies rash or marked weakness and there was none on exam. There was no inflammation noted on the muscle biopsy and she did not require treatment with prednisone. The elevation in her aldolase was thought to be related to her liver disease. [facility] Medical History Abdominal bloating COVID-19 vaccine series completed Lumbar spondylosis Cervical spondylitis Polyarthralgia Mild recurrent major depression Muscle weakness Dyslipidemia Elevated CPK Osteopenia Diabetic 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 associated with type 2 diabetes mellitus correction (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 Diabetes type 2, controlled Lab test positive for detection of COVID-19 virus Urge urinary incontinence Moderate asthma Vertigo Polyarthralgia Depression with anxiety Essential hypertension Diabetes mellitus Surgical History History of surgery on extremity Hx of colonoscopy History of esophagogastroduodenoscopy (EGD) S/P SHERRY-BSO (total abdominal hysterectomy and bilateral salpingo-oophorectomy) History of tubal ligation Family History Father Hypertension Mother Cancer Sister Breast cancer Social History Household Members: Significant Other Housing: House Alcohol intake: never Patient Tobacco Use Status: Never used Tobacco e-Cigarette/Vaping Use: Never Used Second Hand Smoke Exposure: No service: No Current occupational status: disabled Review of Systems Const All systems reviewed & are unremarkable except as noted in HPI and below Physical Exam Vital Signs: Last Vital Signs Temp 97.9 F 04/15/23 13:32 Pulse 77 04/15/23 13:32 Resp 15 04/15/23 13:32 BP 120/82 04/15/23 13:32 Pulse Ox 96 04/15/23 13:32 Oxygen Delivery Method Room Air 04/15/23 13:32 BMI result Body Mass Index 30.5 APPEARANCE: Patient in no acute distress EYES: no redness, pupils equal and reactive to light, eyelids normal EARS: External ear normal THROAT: Oral mucosa moist, no ulcerations NECK: No thyromegaly or masses, no adenopathy, trachea midline. HEART: Regular rhythm, S1-S2 heard, no murmurs, rubs or gallops. LUNG: Clear to patient, respiratory rate regular and nonlabored. EXTREMITIES: No edema, no calf tenderness, normal peripheral pulses. NEURO: Oriented and alert x3. No focal weakness. Gait normal. SKIN: No inflammatory or neoplastic lesions. No rash, Normal color and turgor JOINT EXAM:? Cervical Spine:? Full range of motion without pain; no tenderness. Widespread tenderness to palpation of the cervical spinal and trapezius muscles. Thoracic Spine: No scoliosis.? No tenderness on palpation. Lumbar Spine:? Alignment normal.? Full range of motion without pain, no tenderness. Hands: LEFT: Normal pain-free range of motion without tenderness, swelling, increased warmth or erythema over the joints. Able to make a full fist and has a good plasma processor strength. Wide spread diffuse mild tenderness reported to palpation throughout the hand and over the forearm. Negative Phalen test, negative Tinel sign. RIGHT: Normal pain-free range of motion without tenderness, swelling, increased warmth or erythema over the joint. Able to make a full fist and has a good plasma processor strength. Flexion deformity 5th DIP. Widespread diffuse mild tenderness reported to palpation throughout the hand over the forearm. Negative Phalen test, negative Tinel sign. Wrists:? Normal pain-free range of motion without tenderness, swelling, increased warmth or erythema. Elbows:Normal pain-free range of motion without tenderness, swelling, increased warmth or erythema. Shoulders:? Full range of motion without pain. No tenderness, weakness, swelling, increased warmth or erythema. Hips:? Full range of motion without pain. Hip bursa:? No tenderness. Knees:?? Normal pain-free range of motion without tenderness, swelling, increased warmth or erythema.? There is no effusion or crepitation Ankles: Normal pain-free range of motion without tenderness, swelling, increased warmth or erythema. Feet: Normal pain-free range of motion without tenderness, swelling, increased warmth or erythema. Widespread tenderness reported to palpation. Tender points: Tenderness to digital palpation at the occiput, trapezius, second rib, lateral epicondyle, knees, greater trochanter and gluteal area bilaterally. Results Reviewed Results Reviewed: 02/16/2023 EXAMINATION: XR BILATERAL HIPS WITH AP PELVIS CLINICAL INFORMATION: Pain COMPARISON: Right and left hip radiographs from 01/20/2023 TECHNIQUE: Single frontal view of the pelvis 2 views of each hip FINDINGS: No acute visible fracture or dislocation. Mild to moderate degenerative changes the bilateral femoral acetabular joint. Enthesopathy along the left greater trochanter. Degenerative arthropathy of the lumbosacral spine. Joint spaces and alignment are otherwise maintained. Soft tissues are unremarkable. XR/XR hip BI w PEL1V IMPRESSION: 1. No acute visible fracture or dislocation. 2. Mild to moderate degenerative changes the bilateral femoral acetabular joint. 3. Enthesopathy along the left greater trochanter. 01/20/2023 EXAMINATION: XR LUMBAR SPINE XR HIPS, BILATERAL CLINICAL INDICATION: Acute bilateral hip pain and midline low back pain. COMPARISON: 07/11/2017 bilateral hips, 08/12/2018 lumbar spine. TECHNIQUE: 4 views of the lumbar spine. AP and lateral views of each hip. FINDINGS: Left Hip: Ghtx-zj-egsimwgf axial joint space narrowing. Alignment preserved. Increased soft tissue calcification adjacent to the greater trochanter. Right Hip: Euos-wo-acoejabi axial joint space narrowing. Alignment preserved. Lumbar Spine: Rounded pelvic calcifications are likely vascular. Moderate degenerative changes with hypertrophic change in the bilateral sacroiliac joints. The bones are diffusely demineralized. Facet arthritis in the lower lumbar spine. Lumbar vertebral body heights are preserved. Mild multilevel degenerative changes in the lumbar spine with small osteophytes. Minimal anterolisthesis of L4 on L5. Degenerative changes in the imaged lower thoracic spine. XR/XR lumbar spine 2-3V IMPRESSION: 1. Futn-nc-[id number] degenerative changes in the bilateral hips. 2. Mild multilevel lumbar spondylosis. Additional imaging with CT scan or MRI should be considered for better visualization as these modalities are much more sensitive for detection of fracture or other underlying pathology. Assessment & Plan Assessment & Plan (1) Diabetic 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 associated with type 2 diabetes mellitus: Code(s): E11.42 - Type 2 diabetes mellitus with diabetic 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 Plan: Continue Lyrica prescribed by PCP. (2) Osteoarthritis involving multiple joints on both sides of body: Code(s): M15.9 - Polyosteoarthritis, unspecified (3) Bilateral hand pain: Code(s): M79.641 - Pain in right hand; M79.642 - Pain in left hand Plan # OA Multiple Joints and DM Neuropathy: Patient with chronic bilateral hand pain, knee pain and neck pain with proven OA on imaging and PE. No synovitis, redness, warmth or swelling on exam. Discussed some at home exercises that can be beneficial such as squeeze balls. hand weights bicep curls while watching TV, ankle exercises such writing the alphabet with toes. Discuss that Diabetic Neuropathy is will increase with time. Continue Tylenol, Lyrica and tramadol. Inflammatory markers from at goal. Encouraged patient incorporate light walking activity as tolerated. Continue current medications including cyclobenzaprine and tramadol. Continue follow-up with mental health team. Will obtain labs for next visit Orders: Orders Erythrocyte Sedimentation Rate 6 Months M79.641 - Pain in right hand, M79.642 - Pain in left hand Comprehensive Met. Panel 6 Months M79.641 - Pain in right hand, M79.642 - Pain in left hand C Reactive Protein 6 Months M79.641 - Pain in right hand, M79.642 - Pain in left hand Complete Blood Count Auto Diff 6 Months M79.641 - Pain in right hand, M79.642 - Pain in left hand, Z79.899 - Other intermediate (current) drug therapy Coding Level of Care Code Est Pt Level 3 (55193) Diagnoses Diabetic 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 associated with type 2 diabetes mellitus E11.42 Osteoarthritis involving multiple joints on both sides of body M15.9 Bilateral hand pain M79.641; M79.642
[2023-04-15 13:32] VITALS: BP 120/82; PULSE 77; RESP 15; TEMP 36.6; O2SAT 96; BMI 30.5
== END 2023-04-15 14:01 | disposition home or self-care (01) ==
PROVIDERS: PCP Internal Medicine; Visit Provider Nurse Practitioner Family
DX: E11.42 Type 2 diabetes mellitus with diabetic 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 (principal); M15.9 Polyosteoarthritis, unspecified; M79.641 Pain in right hand; M79.642 Pain in left hand
CPT/HCPCS: 99213

== ENCOUNTER → 2023-04-15 13:23 | Outpatient (BNVA) | payer OTHER, SELFPAY | PROVIDERS: PCP Internal Medicine; Visit Provider Nurse Practitioner Family | DX: M15.9 Polyosteoarthritis, unspecified (principal); M79.641 Pain in right hand; M79.642 Pain in left hand; E11.42 Type 2 diabetes mellitus with diabetic 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 | CPT/HCPCS: 99212 ==

== ENCOUNTER 2023-04-19 11:31 | Outpatient (AMB) | payer OTHER, SELFPAY ==
--- NOTE | 2023-04-19 11:41 | MHC.OFFVIS ---
Intake Vital Signs 04/19/23 11:57 Height 5 ft 1 in Weight 160 lb 0.889 oz BMI 30.2 BP 129/60 Blood Pressure Location Lt brachial Position Sitting Pulse 75 Intake Visit Reasons: S/p egd renuka Intake Note: Mercedes returns to office today in post operative follow up of EGD. CC: Patient underwent EGD with DR. Nicole on 04/04/23. Patient reports poor appetite. Denies other GI symptoms today. Turning Lathe Tender Required: Yes Turning Lathe Tender Name: daughter Accompanied by: Daughter Allergies No Known Allergies [No Known Allergies*] Allergy (Verified 04/19/23 12:01) HPI S/p egd renuka HPI Details Assessment & Plan (1) GERD (gastroesophageal reflux disease): Code(s): K21.9 - Gastro-esophageal reflux disease without esophagitis Plan: Kosovan #Dtr translates per pt request. She is now taking the Viberzi bid 75mcg and her stooling problems are well controlled and she is happy. She continues on pantoprazole and simethicone for GERD. She now has a date for the EGD in March. ROV 6 mos and after the EGD. (2) Abdominal bloating: Code(s): R14.0 - Abdominal distension (gaseous) (3) Irritable bowel syndrome with diarrhea: Code(s): K58.0 - Irritable bowel syndrome with diarrhea (4) Epigastric pain: Code(s): R10.13 - Epigastric pain (5) Family history of colon cancer: Comment: Sister in early 70's 08/2021=insuff prep repeat 1 year aeb Code(s): Z80.0 - Family history of malignant neoplasm of digestive organs (6) POST (nonalcoholic steatohepatitis): Comment: BASELINE Laboratory Tests 11/13/20 Total Bilirubin 0.3 AST 40 H ALT 53 H Alkaline Phosphatase 109 06/08/21 SHARON Screen NEGATIVE Anti-Mitochondrial Ab NEGATIVE Anti-Smooth Muscle Ab <20 Hepatitis A IgM Ab Nonreactive Hep Bs Antigen Negative Hep Bs Antibody NONREACTIVE Hep B Core Total Ab Nonreactive Hepatitis C Ab (EIA) Nonreactive HIV 1&2 Ab/P24 Ag 4thGn Nonreactive CURRENT LABS 01/11/23 13:53 WBC 11.2 H Hgb 12.7 Hct 39.9 Plt Count 305 Estimated GFR > 60 Total Bilirubin 0.4 Direct Bilirubin 0.2 AST 20 ALT 20 Alkaline Phosphatase 78 ULTRASOUND 07/28/21 MPRESSION: Slightly echogenic liver probably representing fatty infiltration similar to previous ultrasound. No need to repeat ultrasound unless transaminases start to rise Code(s): K75.81 - Nonalcoholic steatohepatitis (POST) EGD 04/04/23 Findings: Larynx: Normal Esophagus: GE junction at 35 cms, hiatal hernia 35 to 38 cms. No esophagitis or Mckeon's. Stomach: A few 10-15 mm benign appearing polyps in the gastric body - biopsied. Mild gastric erythema. Biopsies were obtained. Grade 4 flap valve on retroflexed examination of the cardia. (No mass or ulcer noted along the greater curvature) Duodenum: Normal bulb and descending duodenum. Biopsies were obtained from 3rd part of the duodenum to check for celiac sprue Intervention: Biopsies as noted above Impression and Post Procedure Diagnosis: Endoscopy Findings: ESOPHAGUS: Hiatal hernia STOMACH: Gastritis and gastric polyps DUODENUM: Normal - biopsied to check for celiac sprue Plan: Await pathology results Patient has an appointment on 04/19/23in the GI Clinic with Doretha Andres NP . Above findings were reviewed with the patient with the help of [facility] pashto field crop technical officer, Shelley, and Hiatal hernia and Gastric polyps handouts were given in the discharge area Biopsy Received: 04/04/23 Diagnosis A. Small bowel, biopsy: Duodenal mucosa within normal limits; negative for celiac disease. B. Stomach, antrum, biopsy: Antral-type and oxyntic mucosa with moderate chronic inactive inflammation and regenerative changes; no Helicobacter organisms seen. C. Stomach, polyps: Fundic gland polyps with background mild chronic inactive inflammation; no Helicobacter organisms seen. D. Stomach, body, biopsy: Oxyntic mucosa with mild chronic inactive inflammation; no Helicobacter organisms seen. TODAY'S VISIT Kosovan #dtr translates per pt request. She tolerated the procedure well and they are relieved to find out there was no major pathology in the stomach that was hinted at but the CT scan. She is now taking the Viberzi bid 75mcg and her stooling problems are well controlled and she is happy. She continues on pantoprazole and simethicone for GERD. Or because she had failed to clear on her last 2 colonoscopies the endoscopy is suggested that we do a Cologuard study to see if we missed any major lesions. This is really just a double check and I showed in the video and they are quite agreeable to this. ROV 8 weeks. 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 Diabetes type 2, controlled Lab test positive for detection of COVID-19 virus Urge urinary incontinence Moderate asthma Vertigo Polyarthralgia Depression with anxiety Essential hypertension Diabetes mellitus Surgical History History of surgery on extremity Hx of colonoscopy History of esophagogastroduodenoscopy (EGD) S/P SHERRY-BSO (total abdominal hysterectomy and bilateral salpingo-oophorectomy) History of tubal ligation Family History Father Hypertension Mother Cancer Sister Breast cancer Social History Household Members: Significant Other Housing: House Alcohol intake: never Patient Tobacco Use Status: Never used Tobacco e-Cigarette/Vaping Use: Never Used Second Hand Smoke Exposure: No service: No Current occupational status: disabled Review of Systems Const Denies fatigue, Denies fever(s), Denies night sweats, Denies poor appetite and Denies weight loss ENT Reports Normal hearing present, Denies dental pain, Denies dysphagia, Denies hearing loss, Denies mouth pain, Denies odynophagia, Denies throat swelling, Denies tongue swelling and Reports other (Dentition adequate) Card Reports no additional complaints Resp Reports no additional complaints GI Denies abdominal pain, Denies melena, Reports bloating, Denies hematochezia, Denies constipation, Denies GI cramping, Denies dysphagia, Denies excessive flatus, Denies early satiety, Reports heartburn, Reports diarrhea, Denies nausea, Denies odynophagia, Denies vomiting and Denies hematemesis Skin/Breast Denies pruritus, Denies lesions, Denies rash and Denies jaundice Neuro Reports Normal hearing present and Denies Abnormal speech present Endo Denies fatigue Aller/Immun Denies throat swelling and Denies tongue swelling Physical Exam Vital Signs: Last Vital Signs Pulse 75 04/19/23 11:57 BP 129/60 04/19/23 11:57 BMI result Body Mass Index 30.2 Const General: cooperative, no acute distress, well developed and well groomed Nutritional Appearance: well nourished and obese Orientation/consciousness: oriented to person, oriented to place and oriented to time Limitations: language barrier HEENT Head: Yes normocephalic and Yes atraumatic Eyes General: appearance normal, both eyes and all related structures Pupils: Equal, round and reactive pupils present Neck Neck: Yes normal visual inspection and Yes no lymphadenopathy Thyroid: Thyroid normal Resp Effort & Inspection: normal respiratory effort and able to speak in complete sentences Auscultation: clear to auscultation bilaterally Cardio Rate: regular rate Rhythm: regular rhythm Heart sounds: Normal, physiologic split S2 sound present Peripheral pulses: radial pulses present and posterior tibial pulses present GI Inspection: No distended, No Abdominal panniculus present and Yes obesity Palpation (GI): Soft to palpation, nontender, no guarding, not rigid and No hepatosplenomegaly present Percussion: Yes normal to percussion Auscultation: normal bowel sounds Rectal Exam - Female: deferred Skin General skin exam: no rashes or lesions noted, turgor normal, skin not dry, no jaundice, No spider nevi and no striae Rashes: no rashes Nails: normal Neuro General: oriented to person, oriented to place and oriented to time Cranial nerves: Yes Equal, round and reactive pupils present and Yes Normal hearing present Speech: No Abnormal speech present Extrem General: Yes normal to inspection, No clubbing, No cyanosis and No edema Psych Appearance: grossly normal and well kempt Mental Status: mental status grossly normal Speech and movement: Normal speech and movement present Affect: normal affect Attitude: cooperative Thought process: Normal thought process present and not confabulating Thought content: Normal thought content present Insight: Limited insight present (Psych) Judgement: Limited judgement present (Psych) Assessment & Plan Assessment & Plan (1) GERD (gastroesophageal reflux disease): Code(s): K21.9 - Gastro-esophageal reflux disease without esophagitis (2) Abdominal bloating: Code(s): R14.0 - Abdominal distension (gaseous) (3) Irritable bowel syndrome with diarrhea: Code(s): K58.0 - Irritable bowel syndrome with diarrhea (4) Epigastric pain: Code(s): R10.13 - Epigastric pain (5) POST (nonalcoholic steatohepatitis): Comment: BASELINE Laboratory Tests TRANSAMINASES HAVE BEEN NORMAL SO THIS CAN BE MONITORED BY HER PRIMARY CARE PROVIDER 11/13/20 Total Bilirubin 0.3 AST 40 H ALT 53 H Alkaline Phosphatase 109 06/08/21 SHARON Screen NEGATIVE Anti-Mitochondrial Ab NEGATIVE Anti-Smooth Muscle Ab <20 Hepatitis A IgM Ab Nonreactive Hep Bs Antigen Negative Hep Bs Antibody NONREACTIVE Hep B Core Total Ab Nonreactive Hepatitis C Ab (EIA) Nonreactive HIV 1&2 Ab/P24 Ag 4thGn Nonreactive CURRENT LABS 01/11/23 13:53 WBC 11.2 H Hgb 12.7 Hct 39.9 Plt Count 305 Estimated GFR > 60 Total Bilirubin 0.4 Direct Bilirubin 0.2 AST 20 ALT 20 Alkaline Phosphatase 78 ULTRASOUND 07/28/21 MPRESSION: Slightly echogenic liver probably representing fatty infiltration similar to previous ultrasound. No need to repeat ultrasound unless transaminases start to rise Code(s): K75.81 - Nonalcoholic steatohepatitis (POST) (6) Abnormal CT scan: Comment: SUGGESTING STRANDING IN THE STOMACH THAT IS NOT SUBSTANTIATED BY SUBSEQUENT ENDOSCOPY aeb Code(s): R93.89 - Abnormal findings on diagnostic imaging of other specified body structures Plan Kosovan #dtr translates per pt request. She tolerated the procedure well and they are relieved to find out there was no major pathology in the stomach that was hinted at but the CT scan. She is now taking the Viberzi bid 75mcg and her stooling problems are well controlled and she is happy. She continues on pantoprazole and simethicone for GERD. Or because she had failed to clear on her last 2 colonoscopies the endoscopy is suggested that we do a Cologuard study to see if we missed any major lesions. This is really just a double check and I showed in the video and they are quite agreeable to this. ROV 8 weeks. Coding Level of Care Code Est Pt Level 3 (91420) Diagnoses GERD (gastroesophageal reflux disease) K21.9 Abdominal bloating R14.0 Irritable bowel syndrome with diarrhea K58.0 Epigastric pain R10.13 POST (nonalcoholic steatohepatitis) K75.[address] scan R93.89
[2023-04-19 11:57] VITALS: BP 129/60; PULSE 75; BMI 30.2
== END 2023-04-19 12:27 | disposition home or self-care (01) ==
PROVIDERS: PCP Internal Medicine; Visit Provider Nurse Practitioner
DX: K21.9 Gastro-esophageal reflux disease without esophagitis (principal); R14.0 Abdominal distension (gaseous); K58.0 Irritable bowel syndrome with diarrhea; R10.13 Epigastric pain; K75.81 Nonalcoholic steatohepatitis (NASH); R93.89 Abnormal findings on diagnostic imaging of other specified body structures
CPT/HCPCS: 99213

== ENCOUNTER → 2023-04-19 11:31 | Outpatient (BNVA) | payer OTHER, SELFPAY | PROVIDERS: PCP Internal Medicine; Visit Provider Nurse Practitioner | DX: K21.9 Gastro-esophageal reflux disease without esophagitis (principal); K58.0 Irritable bowel syndrome with diarrhea; K75.81 Nonalcoholic steatohepatitis (NASH); R14.0 Abdominal distension (gaseous); R10.13 Epigastric pain; R93.89 Abnormal findings on diagnostic imaging of other specified body structures | CPT/HCPCS: 99212 ==

== ENCOUNTER 2023-06-20 17:33 | Outpatient (REF) | payer OTHER, SELFPAY ==
--- NOTE | ~2023-06-20 | MR_ITS ---
EXAMINATION: MR LUMBAR SPINE WITHOUT CONTRAST CLINICAL INFORMATION: Pain. COMPARISON: None available. TECHNIQUE: MRI of the lumbar spine was obtained using routine sequences without contrast. FINDINGS: Slight straightening of the normal lumbar lordosis. No listhesis. No acute bone marrow abnormality. The vertebral body heights are preserved. Multilevel disc desiccation without significant disc height loss. Multilevel endplate osteophytosis. The visualized spinal cord is normal in caliber. No abnormal cord signal. The conus medullaris terminates at L1. T11-T12: Diffuse disc bulge. No significant spinal canal stenosis. Mild bilateral neural foraminal narrowing. T12-L1: Left paracentral disc protrusion and bilateral facet arthrosis. No significant spinal canal or neural foraminal narrowing. L1-L2: Tiny disc bulge and bilateral facet arthrosis. No significant spinal canal or neural foraminal narrowing. L2-L3: Ligamentum flavum hypertrophy and bilateral facet arthrosis. No significant spinal canal or neural foraminal narrowing. L3-L4: Diffuse disc bulge, ligamentum flavum hypertrophy, and bilateral facet arthrosis. Small facet joint effusions. No significant spinal canal stenosis. Mild bilateral neural foraminal narrowing. L4-L5: Diffuse disc bulge with superimposed right foraminal/extraforaminal disc protrusion. Annular fissure, ligamentum flavum hypertrophy, and bilateral facet arthrosis. Mild spinal canal stenosis. Moderate left and [id number] right neural foraminal narrowing with the disc abutting the exiting L4 nerve roots bilaterally. L5-S1: Diffuse disc bulge, ligamentum flavum hypertrophy, and bilateral facet arthrosis. No significant spinal canal stenosis. Mild bilateral neural foraminal narrowing with the disc abutting the exiting L5 nerve roots bilaterally. The paravertebral soft tissues are unremarkable. There is prominence of the right renal pelvis with tapering just distal to the UPJ, indeterminate etiology. MR/MR lumbar spine wo con IMPRESSION: -Multilevel lumbar spondylosis as described above, most notable at L4-L5 where there is mild spinal canal stenosis. Neural foraminal narrowing is worst and moderate on the left at L4-L5 with disc material abutting the exiting L4 nerve roots bilaterally and L5 nerve roots bilaterally.
== END 2023-06-20 17:34 | disposition home or self-care (01) ==
LOC: HO.MRI 17:33
PROVIDERS: PCP Internal Medicine; Visit Provider Nurse Practitioner Family
DX: M54.16 Radiculopathy, lumbar region (principal)
CPT/HCPCS: 72148

== ENCOUNTER 2023-06-29 13:36 | Outpatient (AMB) | payer OTHER, SELFPAY ==
--- NOTE | 2023-06-29 13:41 | MHC.OFFVIS ---
Intake Vital Signs 06/29/23 13:53 Height 5 ft 1 in Weight 162 lb 11.218 oz BMI 30.7 BP 123/80 Blood Pressure Location Rt brachial Position Sitting Pulse 88 Intake Visit Reasons: 6 weekfollow up Intake Note: Mercedes returns to office today in 6 weeks follow up of GERD. CC: Patient reports doing well and denies having any new GI concerns today. Store Assistant Required: Yes Store Assistant Name: daughter Accompanied by: Daughter Allergies No Known Allergies [No Known Allergies*] Allergy (Verified 06/29/23 13:58) HPI 6 weekfollow up HPI Details Assessment & Plan (1) GERD (gastroesophageal reflux disease): Code(s): K21.9 - Gastro-esophageal reflux disease without esophagitis (2) Abdominal bloating: Code(s): R14.0 - Abdominal distension (gaseous) (3) Irritable bowel syndrome with diarrhea: Code(s): K58.0 - Irritable bowel syndrome with diarrhea (4) Epigastric pain: Code(s): R10.13 - Epigastric pain (5) POST (nonalcoholic steatohepatitis): Comment: BASELINE Laboratory Tests TRANSAMINASES HAVE BEEN NORMAL SO THIS CAN BE MONITORED BY HER PRIMARY CARE PROVIDER 11/13/20 Total Bilirubin 0.3 AST 40 H ALT 53 H Alkaline Phosphatase 109 06/08/21 SHARON Screen NEGATIVE Anti-Mitochondrial Ab NEGATIVE Anti-Smooth Muscle Ab <20 Hepatitis A IgM Ab Nonreactive Hep Bs Antigen Negative Hep Bs Antibody NONREACTIVE Hep B Core Total Ab Nonreactive Hepatitis C Ab (EIA) Nonreactive HIV 1&2 Ab/P24 Ag 4thGn Nonreactive CURRENT LABS 01/11/23 13:53 WBC 11.2 H Hgb 12.7 Hct 39.9 Plt Count 305 Estimated GFR > 60 Total Bilirubin 0.4 Direct Bilirubin 0.2 AST 20 ALT 20 Alkaline Phosphatase 78 ULTRASOUND 07/28/21 MPRESSION: Slightly echogenic liver probably representing fatty infiltration similar to previous ultrasound. No need to repeat ultrasound unless transaminases start to rise Code(s): K75.81 - Nonalcoholic steatohepatitis (POST) (6) Abnormal CT scan: Comment: SUGGESTING STRANDING IN THE STOMACH THAT IS NOT SUBSTANTIATED BY SUBSEQUENT ENDOSCOPY aeb Code(s): R93.89 - Abnormal findings on diagnostic imaging of other specified body structures Plan Latvian #dtr translates per pt request. She tolerated the procedure well and they are relieved to find out there was no major pathology in the stomach that was hinted at but the CT scan. She is now taking the Viberzi bid 75mcg and her stooling problems are well controlled and she is happy. She continues on pantoprazole and simethicone for GERD. Or because she had failed to clear on her last 2 colonoscopies the endoscopy is suggested that we do a Cologuard study to see if we missed any major lesions. This is really just a double check and I showed in the video and they are quite agreeable to this. ROV 8 weeks. . TODAY'S VISIT Latvian #dtr translates per pt request She never received the Cologuard box, will check in to this. She is now taking the Viberzi bid 75mcg along with her fiber pills and her stooling problems are well controlled and she is happy. She continues on pantoprazole and simethicone for GERD. Will try reordering the Cologuard (which she ordered because she is failed to clear for her last 3 colonoscopies) see her back again in 8 weeks to go over this result. 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 Diabetes type 2, controlled Lab test positive for detection of COVID-19 virus Urge urinary incontinence Moderate asthma Vertigo Polyarthralgia Depression with anxiety Essential hypertension Diabetes mellitus Surgical History History of surgery on extremity Hx of colonoscopy History of esophagogastroduodenoscopy (EGD) S/P SHERRY-BSO (total abdominal hysterectomy and bilateral salpingo-oophorectomy) History of tubal ligation Family History Father Hypertension Mother Cancer Sister Breast cancer Social History Household Members: Significant Other Housing: House Alcohol intake: never Patient Tobacco Use Status: Never used Tobacco e-Cigarette/Vaping Use: Never Used Second Hand Smoke Exposure: No service: No Current occupational status: disabled Review of Systems Const Denies fatigue, Denies fever(s), Denies night sweats, Denies poor appetite and Denies weight loss ENT Reports Normal hearing present, Denies dental pain, Denies dysphagia, Denies hearing loss, Denies mouth pain, Denies odynophagia, Denies throat swelling, Denies tongue swelling and Reports other (Dentition adequate) Card Reports no additional complaints Resp Reports no additional complaints GI Details: Denies abdominal pain, Denies melena, Reports bloating, Denies hematochezia, Denies constipation, Denies GI cramping, Denies dysphagia, Denies excessive flatus, Denies early satiety, Reports heartburn, Reports diarrhea, Denies nausea, Denies odynophagia, Denies vomiting and Denies hematemesis Skin/Breast Denies pruritus, Denies lesions, Denies rash and Denies jaundice Neuro Reports Normal hearing present and Denies Abnormal speech present Endo Denies fatigue Aller/Immun Denies throat swelling and Denies tongue swelling Physical Exam Vital Signs: Last Vital Signs Pulse 88 06/29/23 13:53 BP 123/80 06/29/23 13:53 BMI result Body Mass Index 30.7 Const General: cooperative, no acute distress, well developed and well groomed Nutritional Appearance: well nourished and obese Orientation/consciousness: oriented to person, oriented to place and oriented to time Limitations: language barrier HEENT Head: Yes normocephalic and Yes atraumatic Eyes General: appearance normal, both eyes and all related structures Pupils: Equal, round and reactive pupils present Neck Neck: Yes normal visual inspection and Yes no lymphadenopathy Thyroid: Thyroid normal Resp Effort & Inspection: normal respiratory effort and able to speak in complete sentences Auscultation: clear to auscultation bilaterally Cardio Rate: regular rate Rhythm: regular rhythm Heart sounds: Normal, physiologic split S2 sound present Peripheral pulses: radial pulses present and posterior tibial pulses present GI Inspection: No distended, No Abdominal panniculus present and Yes obesity Palpation (GI): Soft to palpation, nontender, no guarding, not rigid and No hepatosplenomegaly present Percussion: Yes normal to percussion Auscultation: normal bowel sounds Rectal Exam - Female: deferred Skin General skin exam: no rashes or lesions noted, turgor normal, skin not dry, no jaundice, No spider nevi and no striae Rashes: no rashes Nails: normal Neuro General: oriented to person, oriented to place and oriented to time Cranial nerves: Yes Equal, round and reactive pupils present and Yes Normal hearing present Speech: No Abnormal speech present Extrem General: Yes normal to inspection, No clubbing, No cyanosis and No edema Psych Appearance: grossly normal and well kempt Mental Status: mental status grossly normal Speech and movement: Normal speech and movement present Affect: normal affect Attitude: cooperative Thought process: Normal thought process present and not confabulating Thought content: Normal thought content present Insight: Limited insight present (Psych) Judgement: Limited judgement present (Psych) Assessment & Plan Assessment & Plan (1) GERD (gastroesophageal reflux disease): Code(s): K21.9 - Gastro-esophageal reflux disease without esophagitis (2) Abdominal bloating: Code(s): R14.0 - Abdominal distension (gaseous) (3) Irritable bowel syndrome with diarrhea: Code(s): K58.0 - Irritable bowel syndrome with diarrhea Plan Latvian #dtr translates per pt request She never received the Cologuard box, will check in to this. She is now taking the Viberzi bid 75mcg along with her fiber pills and her stooling problems are well controlled and she is happy. She continues on pantoprazole and simethicone for GERD. Will try reordering the Cologuard (which she ordered because she is failed to clear for her last 3 colonoscopies) see her back again in 8 weeks to go over this result. Medications: Refilled pantoprazole 40 mg PO DAILY 90 days 90 tabs 2RF R10.13 - Epigastric pain methylcellulose (laxative) (Citrucel) 1,000 mg (2 x 500 mg) PO DAILY 30 days 60 tabs 6RF K58.0 - Irritable bowel syndrome with diarrhea Coding Level of Care Code Est Pt Level 3 (79019) Diagnoses GERD (gastroesophageal reflux disease) K21.9 Abdominal bloating R14.0 Irritable bowel syndrome with diarrhea K58.0
[2023-06-29 13:53] VITALS: BP 123/80; PULSE 88; BMI 30.7
== END 2023-06-29 14:18 | disposition home or self-care (01) ==
PROVIDERS: PCP Internal Medicine; Visit Provider Nurse Practitioner
DX: K21.9 Gastro-esophageal reflux disease without esophagitis (principal); R14.0 Abdominal distension (gaseous); K58.0 Irritable bowel syndrome with diarrhea
CPT/HCPCS: 99213

== ENCOUNTER → 2023-06-29 13:36 | Outpatient (BNVA) | payer OTHER, SELFPAY | PROVIDERS: PCP Internal Medicine; Visit Provider Nurse Practitioner | DX: K21.9 Gastro-esophageal reflux disease without esophagitis (principal); K58.0 Irritable bowel syndrome with diarrhea; R14.0 Abdominal distension (gaseous) | CPT/HCPCS: 99212 ==

== ENCOUNTER 2023-07-21 09:53 | Outpatient (REF) | payer OTHER, SELFPAY ==
--- NOTE | ~2023-07-21 | MM_ITS ---
EXAMINATION: MM SCREENING DIGITAL BREAST TOMOSYNTHESIS, BILATERAL CLINICAL INFORMATION: Screening. Asymptomatic. COMPARISON: Mammography: 07/15/2022, 07/13/2021, and dating back to 12/15/2012. TECHNIQUE: Digital breast tomosynthesis is performed in both the craniocaudal and mediolateral oblique views along with computer-aided detection (CAD). Synthesized 2D images are generated from the tomosynthesis. Added full-field left CC view was obtained for skinfold. FINDINGS: There are scattered areas of fibroglandular density (ACR BI-RADS breast composition Category b). There are bilateral vascular calcifications. There are a few tiny punctate skin calcifications bilaterally. Nodule in the outer right breast is consistent with an intramammary lymph node and unchanged. There are no suspicious masses, suspicious grouped calcifications, or areas of architectural distortion in either breast. The parenchymal pattern is stable from prior exams. No skin or axillary abnormalities. MM/MM tomosynthesis screening BI IMPRESSION: No mammographic evidence of malignancy. ASSESSMENT: BI-RADS BI-RADS 2 - Benign Findings RECOMMENDATION: Routine annual mammography screening. 1 year F/U This examination should not preclude the clinical evaluation of a suspicious palpable abnormality. This patient's information was entered into a reminder system with a target due date for their next mammogram.
== END 2023-07-21 09:54 | disposition home or self-care (01) ==
LOC: HO.MAMMO 09:53
PROVIDERS: PCP Internal Medicine; Visit Provider Internal Medicine
DX: Z12.31 Encounter for screening mammogram for malignant neoplasm of breast (principal)
CPT/HCPCS: 77063; 77067

== ENCOUNTER → 2023-07-21 10:00 | Outpatient (BNV) | payer OTHER, SELFPAY | PROVIDERS: PCP Internal Medicine; Visit Provider Radiology Diagnostic Radiology | DX: Z12.31 Encounter for screening mammogram for malignant neoplasm of breast (principal) | CPT/HCPCS: 77063; 77067 ==

== ENCOUNTER 2023-08-24 13:27 | Outpatient (AMB) | payer OTHER, SELFPAY ==
--- NOTE | 2023-08-24 13:47 | MHC.OFFVIS ---
Intake Vital Signs 08/24/23 13:55 Height 5 ft 1 in Weight 159 lb BMI 30.0 BP 121/65 Blood Pressure Location Lt brachial Position Sitting Pulse 85 Intake Visit Reasons: 8 week follow up Intake Note: Patient is seen in office for 8 wks follow up visit, following GERD. 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 She is now taking the Viberzi bid 75mcg along with her fiber pills and her stooling problems are well controlled and she is happy. She continues on pantoprazole and simethicone for GERD. Will try reordering the Cologuard (which she ordered because she is failed to clear for her last 3 colonoscopies) see her back again in 8 weeks to go over this result. Medications: Refilled pantoprazole 40 mg PO DAILY 90 days 90 tabs 2RF R10.13 - Epigastri c pain methylcellulose (l axative) (Citrucel ) 1,000 mg (2 x 500 mg) PO DAILY 30 da ys 60 tabs 6RF K58.0 - Irritable bowel syndrome wit h diarrhea TODAY'S VISIT Vietnamese # sister translates per patient request Her Cologuard test was negative on 07/2023 repeat in 3 years. She is now taking the Viberzi bid 75mcg along with her fiber pills and her stooling problems are well controlled and she is happy. 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 Diabetes type 2, controlled Lab test positive for detection of COVID-19 virus Urge urinary incontinence Moderate asthma Vertigo Polyarthralgia Depression with anxiety Essential hypertension Diabetes mellitus Surgical History History of surgery on extremity Hx of colonoscopy History of esophagogastroduodenoscopy (EGD) S/P SHERRY-BSO (total abdominal hysterectomy and bilateral salpingo-oophorectomy) History of tubal ligation Family History Father Hypertension Mother Cancer Sister Breast cancer Social History Household Members: Significant Other Housing: House Alcohol intake: never Patient Tobacco Use Status: Never used Tobacco e-Cigarette/Vaping Use: Never Used Second Hand Smoke Exposure: No service: No Current occupational status: disabled Review of Systems Const Denies fatigue, Denies fever(s), Denies night sweats, Denies poor appetite and Denies weight loss ENT Reports Normal hearing present, Denies dental pain, Denies dysphagia, Denies hearing loss, Denies mouth pain, Denies odynophagia, Denies throat swelling, Denies tongue swelling and Reports other (Dentition adequate) Card Reports no additional complaints Resp Reports no additional complaints GI Details: Denies abdominal pain, Denies melena, Reports bloating, Denies hematochezia, Denies constipation, Denies GI cramping, Denies dysphagia, Denies excessive flatus, Denies early satiety, Reports heartburn, Reports diarrhea, Denies nausea, Denies odynophagia, Denies vomiting and Denies hematemesis Skin/Breast Denies pruritus, Denies lesions, Denies rash and Denies jaundice Neuro Reports Normal hearing present and Denies Abnormal speech present Endo Denies fatigue Aller/Immun Denies throat swelling and Denies tongue swelling Physical Exam Const General: cooperative, no acute distress, well developed and well groomed Nutritional Appearance: well nourished and overweight Orientation/consciousness: oriented to person, oriented to place and oriented to time Limitations: language barrier HEENT Head: Yes normocephalic and Yes atraumatic Eyes General: appearance normal, both eyes and all related structures Pupils: Equal, round and reactive pupils present Neck Neck: Yes normal visual inspection and Yes no lymphadenopathy Thyroid: Thyroid normal Resp Effort & Inspection: normal respiratory effort and able to speak in complete sentences Auscultation: clear to auscultation bilaterally Cardio Rate: regular rate Rhythm: regular rhythm Heart sounds: Normal, physiologic split S2 sound present Peripheral pulses: radial pulses present and posterior tibial pulses present GI Inspection: No distended, No Abdominal panniculus present and Yes obesity Palpation (GI): Soft to palpation, nontender, no guarding, not rigid and No hepatosplenomegaly present Percussion: Yes normal to percussion Auscultation: normal bowel sounds Rectal Exam - Female: deferred Skin General skin exam: no rashes or lesions noted, turgor normal, skin not dry, no jaundice, No spider nevi and no striae Rashes: no rashes Nails: normal Neuro General: oriented to person, oriented to place and oriented to time Cranial nerves: Yes Equal, round and reactive pupils present and Yes Normal hearing present Speech: No Abnormal speech present Extrem General: Yes normal to inspection, No clubbing, No cyanosis and No edema Psych Appearance: grossly normal and well kempt Mental Status: mental status grossly normal Speech and movement: Normal speech and movement present Affect: normal affect Attitude: cooperative Thought process: Normal thought process present and not confabulating Thought content: Normal thought content present Insight: Limited insight present (Psych) Judgement: Limited judgement present (Psych) Assessment & Plan Assessment & Plan (1) Colon cancer screening: Comment: 07/2023=negative repeat in 3 years;07/2019 for Cologuard negative Code(s): Z12.11 - Encounter for screening for malignant neoplasm of colon (2) GERD (gastroesophageal reflux disease): Code(s): K21.9 - Gastro-esophageal reflux disease without esophagitis (3) Abdominal bloating: Code(s): R14.0 - Abdominal distension (gaseous) (4) Irritable bowel syndrome with diarrhea: Code(s): K58.0 - Irritable bowel syndrome with diarrhea Plan Vietnamese # sister translates per patient request Her Cologuard test was negative on 07/2023 repeat in 3 years. She is now taking the Viberzi bid 75mcg along with her fiber pills and her stooling problems are well controlled and she is happy. She continues on pantoprazole and simethicone for GERD Return office visit in 6 months Coding Level of Care Code Est Pt Level 3 (51387) Diagnoses Colon cancer screening Z12.11 GERD (gastroesophageal reflux disease) K21.9 Abdominal bloating R14.0 Irritable bowel syndrome with diarrhea K58.0
[2023-08-24 13:55] VITALS: BP 121/65; PULSE 85
== END 2023-08-24 14:10 | disposition home or self-care (01) ==
PROVIDERS: PCP Internal Medicine; Visit Provider Nurse Practitioner
DX: K21.9 Gastro-esophageal reflux disease without esophagitis (principal); K58.0 Irritable bowel syndrome with diarrhea
CPT/HCPCS: 99213

== ENCOUNTER → 2023-08-24 13:27 | Outpatient (BNVA) | payer OTHER, SELFPAY | PROVIDERS: PCP Internal Medicine; Visit Provider Nurse Practitioner | DX: Z12.11 Encounter for screening for malignant neoplasm of colon (principal); K21.9 Gastro-esophageal reflux disease without esophagitis; K58.0 Irritable bowel syndrome with diarrhea; R14.0 Abdominal distension (gaseous) | CPT/HCPCS: 99212 ==

== ENCOUNTER 2023-09-11 10:29 | Emergency (ER) | payer OTHER, SELFPAY ==
--- NOTE | ~2023-09-11 | XR_ITS ---
EXAMINATION: XR CHEST CLINICAL INFORMATION: Cough COMPARISON: Previous chest x-ray most recent from 2020 TECHNIQUE: 2 views of the chest were obtained. FINDINGS: No significant abnormality is noted involving the heart, lungs, mediastinum, bony thorax or soft tissues. Degenerative changes of the spine. XR/XR chest 2V IMPRESSION: No evidence for acute disease in the chest.
[2023-09-11 10:38] VITALS: BP 136/78; PULSE 98; RESP 24; TEMP 36.8; O2SAT 92; BMI 32.3
[2023-09-11 10:55] LABS: MANUAL DIFF FLAG NO
[2023-09-11 10:56] LABS: Basophils Percent Auto 0.4 % (0-2); Eosinophils Absolute Auto 0.3 X10*3/uL (0.0-0.4); Eosinophils Percent Auto 3.3 % (0-4); Hematocrit 41.9 % (37.0-47.0); Imm Gran Abs Auto 0.02 X10*3/uL (0.00-0.03); Imm Gran Pct Auto 0.3 % (0.0-0.4); Lymphocytes Absolute Auto 2.6 X10*3/uL (1.2-4.9); Lymphocytes Percent Auto 32.9 % (20-40); Mean Corpuscular HGB Conc 33.4 g/dl (31.0-35.0); Mean Corpuscular Volume 86.9 fL (80.0-98.0); Mean Platelet Volume 10.5 fL (9.4-12.3); Monocytes Absolute Auto 0.9 X10*3/uL (0.1-1.2); Monocytes Percent Auto 11.6 % (2-11); Neutrophils Percent Auto 51.5 % (45-73); Platelet Count 284 X10*3/uL (160-400); Red Blood Count 4.82 X10*6/uL (4.20-5.50); Red Cell Distribution Width 14.5 % (11.0-16.0); White Blood Count 7.8 X10*3/uL (4.8-10.8)
--- NOTE | 2023-09-11 11:12 | ED.URI ---
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 She is taking Nyquil with some relief. No travel or sick contacts MD elicited complaint: cough and rhinorrhea Pertinent past history: asthma Onset (ago): day(s) (2) Consistency: constant Severity: moderate Description of mucous: other (white) Able to tolerate fluids by mouth: Yes Exacerbating factors: other (coughing exertion) Relieving factors: OTC cold medicine Associated symptoms: chills, headache, rhinorrhea, nasal congestion, sore throat and cough Treatments prior to arrival: cold medicine Related Data Home Medications ?Medication ?Instructions ?Recorded ?Confirmed trazodone 50 mg tablet 25 mg PO BEDTIME PRN Pain 07/08/20 04/15/23 pregabalin 100 mg capsule (Lyrica) 100 mg PO BID 08/07/21 04/15/23 albuterol sulfate 90 mcg/actuation 0 mcg inhalation 09/17/21 04/15/23 aerosol inhaler (Ventolin HFA) meclizine 25 mg tablet 25 mg PO BID PRN 03/25/22 04/15/23 polymyxin B sulfate 10,000 ml ophthalmic (eye) 03/25/22 04/15/23 unit-trimethoprim 1 mg/mL eye drops venlafaxine 37.5 mg 37.5 mg PO DAILY depressive 08/10/22 04/15/23 capsule,extended release 24 hr disorder empagliflozin 12.5 mg-metformin 1 tab PO BID 04/19/23 1,000 mg tablet (Synjardy) Previous Rx's ?Medication ?Instructions ?Recorded hydrocortisone 2.5 % topical cream 1 applic topical DAILY PRN rash 30 03/18/20 days #20 grams fluticasone propionate 220 1 puff PO BID 90 days #12 grams 10/15/20 mcg/actuation HFA aerosol inhaler (Flovent HFA) alcohol swabs (Alcohol Prep Pads) 1 pad topical QID e11.40 0 days 11/13/20 #100 ea blood sugar diagnostic (FreeStyle #100 ea 11/13/20 Lite Strips) calcium carbonate 600 mg PO BID 30 days #60 tabs 11/13/20 lancets 28 gauge (FreeStyle #100 ea 11/13/20 Lancets) albuterol sulfate 2.5 mg/3 mL 2.5 mg (3 mL) inhalation TID 30 11/16/20 (0.083 %) solution for nebulization days #270 mL tramadol 50 mg tablet 50 mg PO BID PRN pain 30 days #60 11/26/20 tabs loratadine 10 mg tablet 10 mg PO DAILY 90 days #90 tabs 01/12/21 amlodipine 5 mg tablet 5 mg PO DAILY #90 tabs 02/02/21 lisinopril 30 mg tablet 30 mg PO DAILY 90 days #90 tabs 02/02/21 hydroxyzine HCl 10 mg tablet 10 mg PO TID PRN itching 30 days 02/24/21 #30 tabs dulaglutide 1.5 mg/0.5 mL 1.5 mg (0.5 mL) subcut QWEEK 30 06/24/21 subcutaneous pen injector days #2.5 mL montelukast 10 mg tablet 10 mg PO DAILY #90 tabs 08/18/21 aspirin 81 mg tablet,delayed 81 mg PO DAILY #90 tabs 11/06/21 release acetaminophen 650 mg 650 mg PO Q12H PRN pain #60 tabs 12/30/21 tablet,extended release (Mapap Arthritis Pain) oxybutynin chloride 10 mg 10 mg PO DAILY 90 days #90 tabs 08/02/22 tablet,extended release 24 hr acetaminophen 500 mg tablet 500 mg PO QID PRN pain #30 tabs 01/11/23 (Tylenol Extra Strength) eluxadoline 75 mg tablet (Viberzi) 75 mg PO BID #60 tabs 05/17/23 simethicone 180 mg capsule 180 mg PO TID #90 caps 06/14/23 methylcellulose (laxative) 500 mg 1,000 mg (2 x 500 mg) PO DAILY 30 06/29/23 tablet (Citrucel) days #60 tabs pantoprazole 40 mg tablet,delayed 40 mg PO DAILY 90 days #90 tabs 06/29/23 release calcium polycarbophil 625 mg 1,250 mg (2 x 625 mg) PO BID #120 07/15/23 tablet (Fiber-Lax) tabs codeine 10 mg-guaifenesin 100 mg/5 5 ml PO Q6H PRN cough #60 mL 09/11/23 mL oral liquid doxycycline hyclate 100 mg capsule 100 mg PO BID 7 days #14 caps 09/11/23 prednisone 20 mg tablet 20 mg PO DAILY 5 days #5 tabs 09/11/23 Allergies Allergy/AdvReac Type Severity Reaction Status Date / Time No Known Allergies Allergy Verified 09/11/23 10:42 [No Known Allergies*] Review of Systems Review of Systems: Constitutional : No Fever, pos Chills, pos Fatigue ENT/Mouth : No sore throat, No Rhinorrhea Eyes: No Eye Pain, No Swelling, No Redness Cardiovascular : No Chest Pain, pos SOB, No Dyspnea on Exertion Respiratory : pos Cough, pos Sputum Gastrointestinal : No Nausea, No Vomiting, No Diarrhea, No abdominal Pain Genitourinary : No Dysuria, No Urinary Frequency, No Hematuria, Musculoskeletal : No joint pain, pos Myalgias, No Joint Swelling Skin : No Skin Lesions, No rash Neuro : No Weakness, No Numbness, No Dizziness, positive Headache Psych : No Anxiety/Panic, No Depression All other systems reviewed and are negative [facility] Past Medical History Attestation statement: The following information was validated with the patient. 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 Diabetes type 2, controlled Lab test positive for detection of COVID-19 virus Urge urinary incontinence Moderate asthma Vertigo Polyarthralgia Depression with anxiety Essential hypertension Diabetes mellitus Surgical History History of surgery on extremity Hx of colonoscopy History of esophagogastroduodenoscopy (EGD) S/P SHERRY-BSO (total abdominal hysterectomy and bilateral salpingo-oophorectomy) History of tubal ligation Family History Family History Father Hypertension Mother Cancer Sister Breast cancer Social History Social History Household Members: Significant Other Housing: House Alcohol intake: never Patient Tobacco Use Status: Never used Tobacco Smoked in Last 30 Days: No e-Cigarette/Vaping Use: Never Used Second Hand Smoke Exposure: No Use of substances other than those prescribed or required for medical reasons: No Advance Directives: No Advance Directives Information Provided: No Do you have a plan to hurt others: No Plan service: No Current occupational status: disabled Physical Exam Vital Signs: Vital Signs: Last Vital Signs Temp 98.2 F 09/11/23 10:38 Pulse 105 H 09/11/23 11:27 Resp 19 09/11/23 11:27 BP 127/69 09/11/23 11:27 Pulse Ox 96 09/11/23 11:27 O2 Del Method Room Air 09/11/23 11:27 BMI result Body Mass Index 32.3 Appearance: Alert. Oriented X3. No acute distress. Eyes: Pupils equal, round and reactive to light. ENT: Pharynx normal. Neck: Normal inspection. Neck supple. CVS: Normal heart rate and rhythm. Pulses normal. Respiratory: No respiratory distress. Breath sounds diminished but no wheezing Abdomen: Soft and nontender. Skin: Skin warm and dry. Normal skin color. Normal skin turgor. Extremities: No lower extremity edema. No calf ttp Neuro: Oriented X 3. No motor deficit. No sensory deficit. Medications Administered Discontinued Medications Generic Name Dose Route Start Last Admin Trade Name Freq PRN Reason Stop Dose Admin Albuterol Sulfate 2.5 mg 09/11/23 11:21 09/11/23 11:24 Albuterol Sulfate (0.083%) 2.5 Mg/3 Ml Vial.Neb INHALE 09/11/23 11:22 2.5 mg ONCE ONE Administration Guaifenesin/Codeine Phosphate 5 ml 09/11/23 11:52 09/11/23 12:03 Guaifen/Codeine Sf 200/20/10ml 10 Ml Liquid PO 09/11/23 11:53 5 ml ONCE ONE Administration Methylprednisolone Sodium Succinate 125 mg 09/11/23 11:04 09/11/23 11:19 Methylprednisolone Sod Succ 125 Mg/2 Ml Vial IVPUSH 09/11/23 11:05 125 mg ONCE ONE Administration Medical Decision Making Medical Decision Making [facility] Narrative: 73 yo female with PMH of IBS, GERD, urinary incontinence, HLD, IDDM, HTN, DM, anxiety/depression here with URI symptoms and reported asthma exacerbation at this time she is not toxic or hypoxic scores low on protocol will give neb steroids, cough medications - obtain CXR and swab, doubt CHF/ACS, VTE presentation is infectious in nature Differential Diagnosis Differential Diagnoses: The differential diagnosis associated with the presentation includes viral syndrome, bronchitis, asthma Admission/Observation Consideration of admission/observation: Escalation of care including admission/observation considered no hypoxia or distress can be DC Lab Data [facility] Lab Attestation statement: I reviewed the patient's lab results. 09/11/23 10:51 09/11/23 10:50 Labs: Lab Results 09/11/23 09/11/23 Range/Units 10:50 10:51 WBC 7.8 (4.8-10.8) X10*3/uL RBC 4.82 (4.20-5.50) X10*6/uL Hgb 14.0 (12.0-16.0) g/dl Hct 41.9 (37.0-47.0) % MCV 86.9 (80.0-98.0) fL MCH 29.0 (27.0-33.0) pg MCHC 33.4 (31.0-35.0) g/dl RDW 14.5 (11.0-16.0) % Plt Count 284 (160-400) X10*3/uL MPV 10.5 (9.4-12.3) fL Immature Gran % (Auto) 0.3 (0.0-0.4) % Neut % (Auto) 51.5 (45-73) % Lymph % (Auto) 32.9 (20-40) % Brooks % (Auto) 11.6 H (2-11) % Eos % (Auto) 3.3 (0-4) % Baso % (Auto) 0.4 (0-2) % Lymph # (Auto) 2.6 (1.2-4.9) X10*3/uL Brooks # (Auto) 0.9 (0.1-1.2) X10*3/uL Eos # (Auto) 0.3 (0.0-0.4) X10*3/uL Baso # (Auto) 0.0 (0.0-0.2) X10*3/uL Abs Immat Gran (auto) 0.02 (0.00-0.03) X10*3/uL Absolute Neuts (auto) 4.0 (2.0-8.3) x10*3/uL Absolute Nucleated RBC 0.000 (0.0-0.012) X10*3/uL Nucleated RBC % (auto) 0.0 (0.0-0.2) /100WBC Sodium 138 (135-145) mmol/L Potassium 3.4 (3.3-5.1) mmol/L Chloride 102 (96-108) mmol/L Carbon Dioxide 21 L (22-29) mmol/L Anion Gap 18 (12-20) BUN 10 (9-16) mg/dL Creatinine 0.84 (0.5-1.4) mg/dL Estim Creat Clear Calc 52.4 Estimated GFR > 60 Random Glucose 208 H (60-115) mg/dL Calcium 10.2 (8.4-10.2) mg/dL Total Bilirubin 0.4 (0.0-1.0) mg/dL AST 27 (5-31) U/L ALT 26 (0-31) U/L Alkaline Phosphatase 91 (39-117) U/L Total Protein 8.2 H (6.5-8.0) g/dL Albumin 4.3 (3.5-5.0) g/dL Influenza Type A (PCR) NEGATIVE (Negative) Influenza Type B (PCR) NEGATIVE (Negative) RSV RNA Qual (PCR) NEGATIVE (Negative) SARS-CoV-2 RNA (RT-PCR) NEGATIVE (Negative) Independent Interpretation I performed an independent interpretation of an: Plain X-Ray (no pneumonia) Radiology Impression Discussion of test interpretation with radiology: I have reviewed the radiologist's reading. External Record Review External record reviewed: Inpatient record Prescription Management I considered prescription management with: Antibiotic and Other Discharge Plan Discharge Clinical Impression: Acute bronchitis Qualifiers: Bronchitis organism: unspecified organism Qualified Code(s): J20.9 - Acute bronchitis, unspecified Patient Disposition: Home, Self-Care Instructions: Acute Bronchitis (ED) Additional Instructions: labs reassuring, swab no flu, covid, rsv chest xray no pneumonia monitor your blood sugar will go up with steroids return for any worsening symptoms or concerns. Prescriptions: New doxycycline hyclate 100 mg capsule 100 mg PO BID 7 Days Qty: 14 0RF prednisone 20 mg tablet 20 mg PO DAILY 5 Days Qty: 5 0RF codeine-guaifenesin 10-100 mg/5 mL liquid 5 ml PO Q6H PRN (Reason: cough) Qty: 60 0RF No Action hydrocortisone 2.5 % cream 1 applic topical DAILY PRN (Reason: rash) 30 Days Qty: 20 0RF Flovent HFA 220 mcg/actuation HFA aerosol inhaler 1 puff PO BID 90 Days Qty: 12 6RF albuterol sulfate 2.5 mg /3 mL (0.083 %) solution for nebulization 2.5 mg inhalation TID 30 Days Qty: 270 2RF tramadol 50 mg tablet 50 mg PO BID PRN (Reason: pain) 30 Days Qty: 60 0RF loratadine 10 mg tablet 10 mg PO DAILY 90 Days Qty: 90 3RF lisinopril 30 mg tablet 30 mg PO DAILY 90 Days Qty: 90 1RF amlodipine 5 mg tablet 5 mg PO DAILY Qty: 90 1RF hydroxyzine HCl 10 mg tablet 10 mg PO TID PRN (Reason: itching) 30 Days Qty: 30 2RF montelukast 10 mg tablet 10 mg PO DAILY Qty: 90 3RF aspirin 81 mg tablet,delayed release (DR/EC) 81 mg PO DAILY Qty: 90 3RF acetaminophen [Mapap Arthritis Pain] 650 mg tablet extended release 650 mg PO Q12H PRN (Reason: pain) Qty: 60 1RF Viberzi 75 mg tablet 75 mg PO BID Qty: 60 5RF Rx Instructions: must administer with a meal/food, PLEASE LABEL INSTRUCTIONS IN KITTITIAN !! simethicone 180 mg capsule 180 mg PO TID Qty: 90 6RF calcium polycarbophil [Fiber-Lax] 625 mg tablet 1,250 mg PO BID Qty: 120 6RF acetaminophen [Tylenol Extra Strength] 500 mg tablet 500 mg PO QID PRN (Reason: pain) Qty: 30 0RF trazodone 50 mg tablet 25 mg PO BEDTIME PRN (Reason: Pain) alcohol swabs [Alcohol Prep Pads] Pads, Medicated 1 pad topical QID Qty: 100 6RF (DME) FreeStyle Lite Strips Strip See Rx Instructions .ROUTE .MEDSUPPLY Qty: 100 11RF Rx Instructions: test three times a day calcium carbonate 600 mg calcium (1,500 mg) tablet 600 mg PO BID 30 Days Qty: 60 11RF (DME) lancets [FreeStyle Lancets] 28 gauge misc See Rx Instructions .ROUTE .MEDSUPPLY Qty: 100 11RF Rx Instructions: test three times a day pregabalin [Lyrica] 100 mg capsule 100 mg PO BID meclizine 25 mg tablet 25 mg PO BID PRN polymyxin B sulf-trimethoprim 10,000 unit- 1 mg/mL drops ophthalmic (eye) dulaglutide 1.5 mg/0.5 mL pen injector 1.5 mg subcut QWEEK 30 Days Qty: 2.5 6RF albuterol sulfate [Ventolin HFA] 90 mcg/actuation HFA aerosol inhaler 0 mcg inhalation venlafaxine 37.5 mg capsule,extended release 24hr 37.5 mg PO DAILY oxybutynin chloride 10 mg tablet extended release 24hr 10 mg PO DAILY 90 Days Qty: 90 2RF Synjardy 12.5-1,000 mg tablet 1 tab PO BID Citrucel 500 mg tablet 1,000 mg PO DAILY 30 Days Qty: 60 6RF Hold Instructions: Doctor's Order pantoprazole 40 mg tablet,delayed release (DR/EC) 40 mg PO DAILY 90 Days Qty: 90 2RF Print Language: Macedonian
[2023-09-11 11:14] LABS: Alanine Aminotransferase 26 U/L (0-31); Albumin Level 4.3 g/dL (3.5-5.0); Alkaline Phosphatase 91 U/L (39-117); Anion Gap 18 (12-20); Aspartate Amino Transferase 27 U/L (5-31); Bilirubin Total 0.4 mg/dL (0.0-1.0); Blood Urea Nitrogen 10 mg/dL (9-16); Calcium 10.2 mg/dL (8.4-10.2); Carbon Dioxide 21 mmol/L (22-29); Chloride 102 mmol/L (96-108); Creatinine Clr Calc Pharmacy 52.4; Estimated Glomerular Filt Rate > 60; Glucose Random 208 mg/dL (60-115); Potassium 3.4 mmol/L (3.3-5.1); Sodium 138 mmol/L (135-145); Total Protein 8.2 g/dL (6.5-8.0)
[2023-09-11] MEDS: methylPREDNISolone Sod Succ 125 MG/2 ML VIAL IVPUSH (11:19)
[2023-09-11 11:22] VITALS: O2SAT 97
[2023-09-11] MEDS: Albuterol Sulfate (0.083%) 2.5 MG/3 ML VIAL.NEB INHALE (11:24)
[2023-09-11 11:25] VITALS: PULSE 107; RESP 18; O2SAT 96
[2023-09-11 11:27] VITALS: BP 127/69; PULSE 105; RESP 19; O2SAT 96
[2023-09-11 11:32] LABS: Influenza A PCR NEGATIVE (Negative); Influenza B PCR NEGATIVE (Negative); Resp Syncy Virus RNA Qual PCR NEGATIVE (Negative); SARS COV2 PCR INHOUSE NEGATIVE (Negative)
[2023-09-11] MEDS: guaiFEN/Codeine SF 200/20/10ML 10 ML LIQUID 5 ML PO (12:03)
[2023-09-11 12:42] VITALS: BP 133/74; PULSE 99; RESP 16; TEMP 36.7; O2SAT 96
[2023-09-11 13:16] VITALS: BP 133/74; PULSE 99; RESP 16; TEMP 36.7; O2SAT 96
== END 2023-09-11 13:17 | disposition home or self-care (01) ==
PROVIDERS: Emergency Provider Emergency Medicine; PCP Internal Medicine
DX: J20.9 Acute bronchitis, unspecified (principal); E11.9 Type 2 diabetes mellitus without complications; I10 Essential (primary) hypertension; Z79.4 Long term (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
CPT/HCPCS: 0241U; 71046; 80053; 85025; 94640; 99285; J2919

== ENCOUNTER 2023-10-13 11:09 | Outpatient (REF) | payer OTHER, SELFPAY ==
[2023-10-13 11:29] LABS: MANUAL DIFF FLAG NO
[2023-10-13 11:57] LABS: Basophils Percent Auto 0.4 % (0-2); Eosinophils Absolute Auto 0.3 X10*3/uL (0.0-0.4); Eosinophils Percent Auto 4.9 % (0-4); Hematocrit 38.5 % (37.0-47.0); Hemoglobin 12.5 g/dl (12.0-16.0); Imm Gran Abs Auto 0.01 X10*3/uL (0.00-0.03); Imm Gran Pct Auto 0.1 % (0.0-0.4); Lymphocytes Absolute Auto 2.7 X10*3/uL (1.2-4.9); Mean Corpuscular HGB Conc 32.5 g/dl (31.0-35.0); Mean Corpuscular Hemoglobin 29.3 pg (27.0-33.0); Mean Corpuscular Volume 90.4 fL (80.0-98.0); Mean Platelet Volume 10.7 fL (9.4-12.3); Monocytes Absolute Auto 0.6 X10*3/uL (0.1-1.2); Monocytes Percent Auto 8.7 % (2-11); Neutrophils Absolute Auto 3.2 x10*3/uL (2.0-8.3); Neutrophils Percent Auto 46.9 % (45-73); Platelet Count 286 X10*3/uL (160-400); Red Blood Count 4.26 X10*6/uL (4.20-5.50); Red Cell Distribution Width 15.4 % (11.0-16.0); White Blood Count 6.8 X10*3/uL (4.8-10.8)
[2023-10-13 12:33] LABS: Alanine Aminotransferase 34 U/L (0-31); Albumin Level 4.2 g/dL (3.5-5.0); Alkaline Phosphatase 83 U/L (39-117); Anion Gap 10 (12-20); Aspartate Amino Transferase 32 U/L (5-31); Bilirubin Total 0.3 mg/dL (0.0-1.0); Blood Urea Nitrogen 10 mg/dL (9-16); C Reactive Protein 0.26 mg/dL (< or = 0.50); Calcium 10.4 mg/dL (8.4-10.2); Carbon Dioxide 32 mmol/L (22-29); Chloride 106 mmol/L (96-108); Estimated Glomerular Filt Rate > 60; Glucose Random 96 mg/dL (60-115); Potassium 4.3 mmol/L (3.3-5.1); Sodium 144 mmol/L (135-145); Total Protein 7.6 g/dL (6.5-8.0)
[2023-10-13 12:51] LABS: Erythrocyte Sedimentation Rate 14 MM/HR (0-20)
== END 2023-10-13 11:10 | disposition home or self-care (01) ==
LOC: HO.LAB 11:09
PROVIDERS: PCP Internal Medicine; Visit Provider Nurse Practitioner Family
DX: M79.641 Pain in right hand (principal); M79.642 Pain in left hand; Z79.899 Other long term (current) drug therapy
CPT/HCPCS: 36415; 80053; 85025; 85652; 86140

== ENCOUNTER 2023-10-18 12:44 | Outpatient (AMB) | payer OTHER, SELFPAY ==
--- NOTE | 2023-10-18 12:57 | A.OFFVIS_ITS ---
Vital Signs 10/18/23 12:58 Height 4 ft 11 in Weight 163 lb 12.855 oz BMI 33.1 BP 98/60 Blood Pressure Location Rt brachial Position Sitting Pulse 90 Pulse Source Pulse Oximeter Pulse Oximetry (%) 93 Oxygen Delivery Method Room Air Intake Visit Reasons: Osteoarthritis Intake Note: Patient last seen 04/15/[address] Powell, presents today for OA follow up. Reports lots of joint pain Pouch Maker Required: Yes Pouch Maker Name: Daughter - form signed Information Interpreted: non-clinical & clinical Accompanied by: Daughter Allergies No Known Allergies [No Known Allergies*] Allergy (Verified 10/18/23 13:06) HPI Comments Details: Ms. Long returns for follow-up of OA and is bothered by her DM neuropathy. She is with her daughter today who translates, patient decline eligibility consultant services. She states her T2DM is controlled. She says she no longer takes Tramadol. It does not help and she does not like to take it with the Lyrica. She say Lyrica does help. She has taken Gabapentin before but had side effects. She continues to pain to feet and hands. 04/2023: Naty QuinnyoF presents for follow-up of osteoarthritis. She has a history of elevated aldolase.? Last seen in August 2022. Patient presents today for follow-up of her OA. She reports bilateral hand pain that is constant and is worse with use. She states that she still has some numbness in both hands, despite bilateral carpal tunnel surgery 3 years ago. She states that Lyrica helps her pain some, she is also taking this for diabetic 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. She is also taking Tramadol, Tylenol and cyclobenzaprine for her pain. She denies joint swelling or prolonged morning stiffness. Patient states that she followed with [facility] for her carpal tunnel surgery and received injections in her hands in the past. She reports disrupted sleep, skin sensitivity and depression. She follows with psychiatrist and therapist. She is currently taking hydroxyzine, venlafaxine and trazodone. She was previously followed by Dr. Gauthier for elevated aldolase. Patient underwent a muscle biopsy with Dr. Arias and the results were not consistent with a myositis, rather more consistent with muscle atrophy due to her diabetic neuropathy.? She denies rash or marked weakness and there was none on exam. There was no inflammation noted on the muscle biopsy and she did not require treatment with prednisone. The elevation in her aldolase was thought to be related to her liver disease. [facility] Medical History Abdominal bloating COVID-19 vaccine series completed Lumbar spondylosis Cervical spondylitis Polyarthralgia Mild recurrent major depression Muscle weakness Dyslipidemia Elevated CPK Osteopenia Diabetic 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 associated with type 2 diabetes mellitus [facility] (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 Diabetes type 2, controlled Lab test positive for detection of COVID-19 virus Urge urinary incontinence Moderate asthma Vertigo Polyarthralgia Depression with anxiety Essential hypertension Diabetes mellitus Surgical History History of surgery on extremity Hx of colonoscopy History of esophagogastroduodenoscopy (EGD) S/P SHERRY-BSO (total abdominal hysterectomy and bilateral salpingo-oophorectomy) History of tubal ligation Family History Father Hypertension Mother Cancer Sister Breast cancer Social History Household Members: Significant Other Housing: House Alcohol intake: never Patient Tobacco Use Status: Never used Tobacco e-Cigarette/Vaping Use: Never Used Second Hand Smoke Exposure: No service: No Current occupational status: disabled Review of Systems Const All systems reviewed & are unremarkable except as noted in HPI and below Physical Exam Vital Signs: Last Vital Signs Pulse 90 10/18/23 12:58 BP 98/60 10/18/23 12:58 Pulse Ox 93 10/18/23 12:58 Oxygen Delivery Method Room Air 10/18/23 12:58 BMI result Body Mass Index 33.1 Vital signs reviewed. Constitutional: Non-toxic appearing. No acute distress. Well-developed and well-nourished. HEENT: Normocephalic and atraumatic. External auditory canals without erythema or edema bilaterally. Dry mucous membranes. No pharyngeal erythema or exudates. Skin: Warm and dry. No rashes or lesions noted. Neck: Full and painless range of motion. No cervical lymphadenopathy. Cardio: Regular rate and rhythm. No murmurs, gallops, or rubs. No lower extremity edema. No JVD. Pulmonary: No respiratory distress. No accessory muscle usage. Musculoskeletal: Normal range of motion in joints throughout the body. No defor mity or other signs of injury. Neuro: Alert and oriented x4. Cranial nerves 2-12 grossly intact. No focal deficits appreciated. EXTREMITIES: No edema, no calf tenderness, normal peripheral pulses. JOINT EXAM:? Hands: LEFT: Normal pain-free range of motion without tenderness, swelling, increased warmth or erythema over the joints. 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 Wide spread diffuse mild tenderness reported to palpation throughout the hand and over the forearm. Negative Phalen test, negative Tinel sign. RIGHT: Normal pain-free range of motion without tenderness, swelling, increased warmth or erythema over the joint. 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 Flexion deformity 5th DIP. Widespread diffuse mild tenderness reported to palpation throughout the hand over the forearm. Negative Phalen test, negative Tinel sign. Wrists:? Normal pain-free range of motion without tenderness, swelling, increased warmth or erythema. Elbows:Normal pain-free range of motion without tenderness, swelling, increased warmth or erythema. Shoulders:? Full range of motion without pain. No tenderness, weakness, swelling, increased warmth or erythema. Hips:? Full range of motion without pain. Hip bursa:? No tenderness. Knees:?? Normal pain-free range of motion without tenderness, swelling, increased warmth or erythema.? There is no effusion or crepitation Ankles: Normal pain-free range of motion without tenderness, swelling, increased warmth or erythema. Feet: Normal pain-free range of motion without tenderness, swelling, increased warmth or erythema. Widespread tenderness reported to palpation. Tender points: Tenderness to digital palpation at the occiput, trapezius, second rib, lateral epicondyle, knees, greater trochanter and gluteal area bilaterally. Results Reviewed Results Reviewed: Laboratory Tests 10/13/23 11:27 ESR 14 AST 32 H ALT 34 H C-Reactive Protein 0.26 Assessment & Plan Assessment & Plan (1) Diabetic 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 associated with type 2 diabetes mellitus: Code(s): E11.42 - Type 2 diabetes mellitus with diabetic 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 Category: Medical Plan: Continue Lyrica prescribed by PCP. (2) Osteoarthritis involving multiple joints on both sides of body: Code(s): M15.9 - Polyosteoarthritis, unspecified (3) Bilateral hand pain: Code(s): M79.641 - Pain in right hand; M79.642 - Pain in left hand Category: Medical Plan # OA Multiple Joints and DM Neuropathy: Patient with chronic bilateral hand pain, knee pain and neck pain with proven OA on imaging and PE. No synovitis, redness, warmth or swelling on exam. Discussed some at home exercises that can be beneficial such as squeeze balls. hand weights bicep curls while watching TV, ankle exercises such writing the alphabet with toes. Discuss that Diabetic Neuropathy is will increase with time. Continue Tylenol, Lyrica. Inflammatory markers from at goal. Encouraged patient incorporate light walking activity as tolerated. Continue current medications including cyclobenzaprine. Patient does not want to continue Tramadol so it was stopped. Continue follow-up with mental health team. F/u 6 months I spent 15 minutes reviewing chart, evaluating patient and documenting Medications: Discontinued tramadol Discontinued Reason: Patient no longer taking 50 mg PO BID 30 days PRN 60 tabs 0RF pain Coding Level of Care Code Est Pt Level 3 (90667) Diagnoses Diabetic 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 associated with type 2 diabetes mellitus E11.42 Osteoarthritis involving multiple joints on both sides of body M15.9 Bilateral hand pain M79.641; M79.642
[2023-10-18 12:58] VITALS: BP 98/60; PULSE 90; O2SAT 93; BMI 33.1
== END 2023-10-18 14:25 | disposition home or self-care (01) ==
PROVIDERS: PCP Internal Medicine; Visit Provider Nurse Practitioner Family
DX: E11.42 Type 2 diabetes mellitus with diabetic 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 (principal); M15.9 Polyosteoarthritis, unspecified; M79.641 Pain in right hand; M79.642 Pain in left hand
CPT/HCPCS: 99213

== ENCOUNTER → 2023-10-18 12:44 | Outpatient (BNVA) | payer OTHER, SELFPAY | PROVIDERS: PCP Internal Medicine; Visit Provider Nurse Practitioner Family | DX: E11.42 Type 2 diabetes mellitus with diabetic 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 (principal); M15.9 Polyosteoarthritis, unspecified; M79.641 Pain in right hand; M79.642 Pain in left hand | CPT/HCPCS: 99212 ==

== ENCOUNTER 2023-12-14 13:26 | Emergency (ER) | payer OTHER, SELFPAY ==
[2023-12-14 13:47] VITALS: BP 164/88; PULSE 74; RESP 18; TEMP 36.6; O2SAT 98; BMI 29.6
--- NOTE | 2023-12-14 13:47 | ED_ITS ---
HPI - Skin/Abscess/Foreign Bdy General Chief complaint: General Medical Stated complaint: arm rash Time Seen by Provider: 12/14/23 15:47 Source: patient, RN notes reviewed and old records reviewed Mode of arrival: ambulatory History of Present Illness ED Provider: Lacey Cabrera PA-C HPI narrative: 73-year-old female with a past medical history of osteopenia, diabetes, polyarthralgia, depression, anxiety, HTN, presenting to the ED complaining of pruritic rash to bilateral arms and legs x1 month. Admits was seen at clinic and prescribed calamine lotion without relief. Denies new exposures, soaps/lotions/detergent, new medications, travel, sick contacts, others with similar symptoms, SOB, throat closing sensation, wheezing. MD complaint: rash Related Data Home Medications ?Medication ?Instructions ?Recorded ?Confirmed trazodone 50 mg tablet 25 mg PO BEDTIME PRN Pain 07/08/20 04/15/23 pregabalin 100 mg capsule (Lyrica) 100 mg PO BID 08/07/21 04/15/23 albuterol sulfate 90 mcg/actuation 0 mcg inhalation 09/17/21 04/15/23 aerosol inhaler (Ventolin HFA) meclizine 25 mg tablet 25 mg PO BID PRN 03/25/22 04/15/23 polymyxin B sulfate 10,000 ml ophthalmic (eye) 03/25/22 04/15/23 unit-trimethoprim 1 mg/mL eye drops venlafaxine 37.5 mg 37.5 mg PO DAILY depressive 08/10/22 04/15/23 capsule,extended release 24 hr disorder empagliflozin 12.5 mg-metformin 1 tab PO BID 04/19/23 1,000 mg tablet (Synjardy) Previous Rx's ?Medication ?Instructions ?Recorded hydrocortisone 2.5 % topical cream 1 applic topical DAILY PRN rash 30 03/18/20 days #20 grams fluticasone propionate 220 1 puff PO BID 90 days #12 grams 10/15/20 mcg/actuation HFA aerosol inhaler (Flovent HFA) alcohol swabs (Alcohol Prep Pads) 1 pad topical QID e11.40 0 days 11/13/20 #100 ea blood sugar diagnostic (FreeStyle #100 ea 11/13/20 Lite Strips) calcium carbonate 600 mg PO BID 30 days #60 tabs 11/13/20 lancets 28 gauge (FreeStyle #100 ea 11/13/20 Lancets) albuterol sulfate 2.5 mg/3 mL 2.5 mg (3 mL) inhalation TID 30 11/16/20 (0.083 %) solution for nebulization days #270 mL loratadine 10 mg tablet 10 mg PO DAILY 90 days #90 tabs 01/12/21 amlodipine 5 mg tablet 5 mg PO DAILY #90 tabs 02/02/21 lisinopril 30 mg tablet 30 mg PO DAILY 90 days #90 tabs 02/02/21 hydroxyzine HCl 10 mg tablet 10 mg PO TID PRN itching 30 days 02/24/21 #30 tabs dulaglutide 1.5 mg/0.5 mL 1.5 mg (0.5 mL) subcut QWEEK 30 06/24/21 subcutaneous pen injector days #2.5 mL montelukast 10 mg tablet 10 mg PO DAILY #90 tabs 08/18/21 aspirin 81 mg tablet,delayed 81 mg PO DAILY #90 tabs 11/06/21 release acetaminophen 650 mg 650 mg PO Q12H PRN pain #60 tabs 12/30/21 tablet,extended release (Mapap Arthritis Pain) oxybutynin chloride 10 mg 10 mg PO DAILY 90 days #90 tabs 08/02/22 tablet,extended release 24 hr acetaminophen 500 mg tablet 500 mg PO QID PRN pain #30 tabs 01/11/23 (Tylenol Extra Strength) simethicone 180 mg capsule 180 mg PO TID #90 caps 06/14/23 methylcellulose (laxative) 500 mg 1,000 mg (2 x 500 mg) PO DAILY 30 06/29/23 tablet (Citrucel) days #60 tabs calcium polycarbophil 625 mg 1,250 mg (2 x 625 mg) PO BID #120 07/15/23 tablet (Fiber-Lax) tabs codeine 10 mg-guaifenesin 100 mg/5 5 ml PO Q6H PRN cough #60 mL 09/11/23 mL oral liquid doxycycline hyclate 100 mg capsule 100 mg PO BID 7 days #14 caps 09/11/23 prednisone 20 mg tablet 20 mg PO DAILY 5 days #5 tabs 09/11/23 eluxadoline 75 mg tablet (Viberzi) 75 mg PO BID #60 tabs 09/28/23 pantoprazole 40 mg tablet,delayed 40 mg PO DAILY 90 days #90 tabs 09/28/23 release hydrocortisone 1 % topical cream 1 appl topical BID PRN rash #28.35 12/14/23 grams prednisone 20 mg tablet 40 mg (2 x 20 mg) PO DAILY 5 days 12/14/23 #10 tabs Allergies Allergy/AdvReac Type Severity Reaction Status Date / Time No Known Allergies Allergy Verified 12/14/23 13:48 [No Known Allergies*] Review of Systems 2 Review of Systems: Constitutional: No Fever, No Chills ENT/Mouth: No Ear Pain, No Nasal Congestion, No Hoarseness, No sore throat, No Rhinorrhea, No Swallowing Difficulty Cardiovascular: No Chest Pain, No SOB Respiratory: No Cough, No Sputum, No Wheezing Gastrointestinal: No Nausea, No Vomiting, No Abdominal pain Musculoskeletal: No joint pain, No Myalgias, No Joint Swelling Skin: No Skin Lesions, + rash Neuro: No Weakness, No Numbness, No Paresthesias Yes all other systems are reviewed and are negative Constitutional: Constitutional: Reports as per [facility] Past Medical History Attestation statement: The following information was validated with the patient. 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 Diabetes type 2, controlled Lab test positive for detection of COVID-19 virus Urge urinary incontinence Moderate asthma Vertigo Polyarthralgia Depression with anxiety Essential hypertension Diabetes mellitus Surgical History History of surgery on extremity Hx of colonoscopy History of esophagogastroduodenoscopy (EGD) S/P SHERRY-BSO (total abdominal hysterectomy and bilateral salpingo-oophorectomy) History of tubal ligation Family History Family History Father Hypertension Mother Cancer Sister Breast cancer Social History Social History Household Members: Significant Other Housing: House Alcohol intake: never Patient Tobacco Use Status: Never used Tobacco e-Cigarette/Vaping Use: Never Used Second Hand Smoke Exposure: No Advance Directives: No Advance Directives Information Provided: No service: No Current occupational status: disabled Physical Exam 2 Vital Signs: Vital Signs: Last Vital Signs Temp 98.0 F 12/14/23 15:36 Pulse 73 12/14/23 15:36 Resp 13 12/14/23 15:36 BP 156/80 H 12/14/23 15:36 Pulse Ox 95 12/14/23 15:36 O2 Del Method Room Air 12/14/23 15:36 BMI result Body Mass Index 29.6 Const: General: cooperative, healthy appearing and no acute distress O rientation/consciousness: patient oriented x3 Limitations: no limitations HEENT: Head: Yes normal to inspection and Yes atraumatic Ears: hearing grossly normal bilaterally General nose exam: Normal external nose present Face and sinus: Yes normal facial exam Mouth: Normal oral and palatal mucosa present and no drooling Throat: Yes posterior oropharynx normal, Yes uvula midline and No uvular edema Eyes: General: appearance normal, both eyes and all related structures EOM: EOMs intact bilaterally Neck: Neck: Yes normal visual inspection and Yes no meningeal signs Resp: Effort & Inspection: normal respiratory effort, no respiratory distress and no stridor Cardio: Rate: regular rate Skin: Other: Please refer to images above. Erythematous rash without warmth, fluctuance or induration. Not circumferential. No palms/soles or mucous membrane involvement. Wounds: no wounds Neuro: General: patient oriented x3, tone normal and no meningeal signs C ranial nerves: Yes CN's II-XII intact bilaterally Gait exam (Neuro): Normal gait present Extrem: General: Yes normal to inspection Course Course Course Narrative: This is a Rapid Medical Exam performed in triage by Lacey Cabrera PA-C. Full HPI, ROS and PE to be performed by primary ED provider. 73 year-old F w/ PMHx presenting to the ED c/o pruritic rash to arms and legs x 1mos. denies travel, new exposures, medications. Went to clinic and has been using topical cream without relief PE: + petechial rash noted to bilateral LE. No palm involvement Plan: Labs Medical Decision Making Medical Decision Making MDM Narrative: 73-year-old female with a past medical history of osteopenia, diabetes, polyarthralgia, depression, anxiety, HTN, presenting to the ED complaining of pruritic rash to bilateral arms and legs x1 month. On exam vital signs stable, NAD, nontoxic appearing, physical exam as noted above, please refer to images. No palm/sore mucous membrane involvement. No sloughing. Patient has been using calamine lotion without relief. Low suspicion for SJS/TENS. No evidence of anaphylaxis or respiratory compromise. Plan: Topical hydrocortisone, p.o. prednisone, dermatology follow-up Please refer to course for remaining clinical decision making, interpretation of labs/imaging results, and discussions with consultants and/or family members. Differential Diagnosis Differential Diagnoses: The differential diagnosis associated with the presentation includes As above Lab Data [facility] Lab Attestation statement: I reviewed the patient's lab results. 12/14/23 14:17 12/14/23 14:17 Labs: Lab Results 12/14/23 Range/Units 14:17 WBC 5.2 (4.8-10.8) X10*3/uL RBC 4.19 L (4.20-5.50) X10*6/uL Hgb 12.3 (12.0-16.0) g/dl Hct 37.6 (37.0-47.0) % MCV 89.7 (80.0-98.0) fL MCH 29.4 (27.0-33.0) pg MCHC 32.7 (31.0-35.0) g/dl RDW 14.7 (11.0-16.0) % Plt Count 219 (160-400) X10*3/uL MPV 10.5 (9.4-12.3) fL Immature Gran % (Auto) 0.4 (0.0-0.4) % Neut % (Auto) 38.3 L (45-73) % Lymph % (Auto) 46.0 H (20-40) % [place] % (Auto) 11.3 H (2-11) % Eos % (Auto) 3.6 (0-4) % Baso % (Auto) 0.4 (0-2) % Lymph # (Auto) 2.4 (1.2-4.9) X10*3/uL [place] # (Auto) 0.6 (0.1-1.2) X10*3/uL Eos # (Auto) 0.2 (0.0-0.4) X10*3/uL Baso # (Auto) 0.0 (0.0-0.2) X10*3/uL Abs Immat Gran (auto) 0.02 (0.00-0.03) X10*3/uL Absolute Neuts (auto) 2.0 (2.0-8.3) x10*3/uL Absolute Nucleated RBC 0.000 (0.0-0.012) X10*3/uL Nucleated RBC % (auto) 0.0 (0.0-0.2) /100WBC PT 12.3 (11.1-13.3) SEC INR 1.0 (0.9-1.1) Sodium 140 (135-145) mmol/L Potassium 4.0 (3.3-5.1) mmol/L Chloride 104 (96-108) mmol/L Carbon Dioxide 29 (22-29) mmol/L Anion Gap 11 L (12-20) BUN 11 (9-16) mg/dL Creatinine 0.69 (0.5-1.4) mg/dL Estim Creat Clear Calc 69.1 Estimated GFR > 60 Random Glucose 87 (60-115) mg/dL Calcium 9.8 (8.4-10.2) mg/dL Total Bilirubin 0.3 (0.0-1.0) mg/dL Direct Bilirubin 0.1 (0.0-0.5) mg/dL AST 61 H (5-31) U/L ALT 64 H (0-31) U/L Alkaline Phosphatase 86 (39-117) U/L Total Protein 7.8 (6.5-8.0) g/dL Albumin 4.2 (3.5-5.0) g/dL External Record Review External record reviewed: Inpatient record, Office record, Outpatient record, Prior outpatient labs, Prior outpatient radiology, Primary care record and Outside ED record Tests considered The following testing was considered but not selected: As above Prescription Management I considered prescription management with: Pain Medication and Other Discharge Plan Discharge Clinical Impression: Rash Patient Disposition: Home, Self-Care Instructions: Acute Rash (ED) Additional Instructions: Hydrocortisone as a topical steroid, apply to rash only. Avoid application to face, hands, feet and genital region as potentially can discolored skin Prednisone as an oral steroid Continue home medications If you develop any shortness of breath, throat closing sensation, swelling or fever return to the emergency department Please follow-up with dermatology Prescriptions: New hydrocortisone 1 % cream 1 appl topical BID PRN (Reason: rash) Qty: 28.35 0RF Rx Instructions: Apply to rash only. Avoid application to face, hands, feet and genital region prednisone 20 mg tablet 40 mg PO DAILY 5 Days Qty: 10 0RF No Action hydrocortisone 2.5 % cream 1 applic topical DAILY PRN (Reason: rash) 30 Days Qty: 20 0RF Flovent HFA 220 mcg/actuation HFA aerosol inhaler 1 puff PO BID 90 Days Qty: 12 6RF albuterol sulfate 2.5 mg /3 mL (0.083 %) solution for nebulization 2.5 mg inhalation TID 30 Days Qty: 270 2RF loratadine 10 mg tablet 10 mg PO DAILY 90 Days Qty: 90 3RF lisinopril 30 mg tablet 30 mg PO DAILY 90 Days Qty: 90 1RF amlodipine 5 mg tablet 5 mg PO DAILY Qty: 90 1RF hydroxyzine HCl 10 mg tablet 10 mg PO TID PRN (Reason: itching) 30 Days Qty: 30 2RF montelukast 10 mg tablet 10 mg PO DAILY Qty: 90 3RF aspirin 81 mg tablet,delayed release (DR/EC) 81 mg PO DAILY Qty: 90 3RF acetaminophen [Mapap Arthritis Pain] 650 mg tablet extended release 650 mg PO Q12H PRN (Reason: pain) Qty: 60 1RF simethicone 180 mg capsule 180 mg PO TID Qty: 90 6RF calcium polycarbophil [Fiber-Lax] 625 mg tablet 1,250 mg PO BID Qty: 120 6RF Viberzi 75 mg tablet 75 mg PO BID Qty: 60 5RF Rx Instructions: must administer with a meal/food, PLEASE LABEL INSTRUCTIONS IN MALAYSIAN !! pantoprazole 40 mg tablet,delayed release (DR/EC) 40 mg PO DAILY 90 Days Qty: 90 2RF acetaminophen [Tylenol Extra Strength] 500 mg tablet 500 mg PO QID PRN (Reason: pain) Qty: 30 0RF doxycycline hyclate 100 mg capsule 100 mg PO BID 7 Days Qty: 14 0RF prednisone 20 mg tablet 20 mg PO DAILY 5 Days Qty: 5 0RF codeine-guaifenesin 10-100 mg/5 mL liquid 5 ml PO Q6H PRN (Reason: cough) Qty: 60 0RF trazodone 50 mg tablet 25 mg PO BEDTIME PRN (Reason: Pain) alcohol swabs [Alcohol Prep Pads] Pads, Medicated 1 pad topical QID Qty: 100 6RF (DME) FreeStyle Lite Strips Strip See Rx Instructions .ROUTE .MEDSUPPLY Qty: 100 11RF Rx Instructions: test three times a day calcium carbonate 600 mg calcium (1,500 mg) tablet 600 mg PO BID 30 Days Qty: 60 11RF (DME) lancets [FreeStyle Lancets] 28 gauge misc See Rx Instructions .ROUTE .MEDSUPPLY Qty: 100 11RF Rx Instructions: test three times a day pregabalin [Lyrica] 100 mg capsule 100 mg PO BID meclizine 25 mg tablet 25 mg PO BID PRN polymyxin B sulf-trimethoprim 10,000 unit- 1 mg/mL drops ophthalmic (eye) dulaglutide 1.5 mg/0.5 mL pen injector 1.5 mg subcut QWEEK 30 Days Qty: 2.5 6RF albuterol sulfate [Ventolin HFA] 90 mcg/actuation HFA aerosol inhaler 0 mcg inhalation venlafaxine 37.5 mg capsule,extended release 24hr 37.5 mg PO DAILY oxybutynin chloride 10 mg tablet extended release 24hr 10 mg PO DAILY 90 Days Qty: 90 2RF Synjardy 12.5-1,000 mg tablet 1 tab PO BID Citrucel 500 mg tablet 1,000 mg PO DAILY 30 Days Qty: 60 6RF Hold Instructions: Doctor's Order Referrals: Jenni Staples PA [Physician Managed Care Liaison] - Melvin Angulo MD [Physician] - Will Walter MD [Physician] - Rica Carranza PA-C [Physician Managed Care Liaison] - Print Language: Brazilian
[2023-12-14 14:22] LABS: MANUAL DIFF FLAG NO
[2023-12-14 14:25] LABS: Basophils Percent Auto 0.4 % (0-2); Eosinophils Absolute Auto 0.2 X10*3/uL (0.0-0.4); Eosinophils Percent Auto 3.6 % (0-4); Hematocrit 37.6 % (37.0-47.0); Hemoglobin 12.3 g/dl (12.0-16.0); Imm Gran Abs Auto 0.02 X10*3/uL (0.00-0.03); Imm Gran Pct Auto 0.4 % (0.0-0.4); Lymphocytes Absolute Auto 2.4 X10*3/uL (1.2-4.9); Mean Corpuscular HGB Conc 32.7 g/dl (31.0-35.0); Mean Corpuscular Hemoglobin 29.4 pg (27.0-33.0); Mean Corpuscular Volume 89.7 fL (80.0-98.0); Mean Platelet Volume 10.5 fL (9.4-12.3); Monocytes Absolute Auto 0.6 X10*3/uL (0.1-1.2); Monocytes Percent Auto 11.3 % (2-11); Neutrophils Percent Auto 38.3 % (45-73); Platelet Count 219 X10*3/uL (160-400); Red Blood Count 4.19 X10*6/uL (4.20-5.50); Red Cell Distribution Width 14.7 % (11.0-16.0); White Blood Count 5.2 X10*3/uL (4.8-10.8)
[2023-12-14 14:36] LABS: Prothrombin Time 12.3 SEC (11.1-13.3)
[2023-12-14 14:44] LABS: Alanine Aminotransferase 64 U/L (0-31); Albumin Level 4.2 g/dL (3.5-5.0); Alkaline Phosphatase 86 U/L (39-117); Anion Gap 11 (12-20); Aspartate Amino Transferase 61 U/L (5-31); Bilirubin Direct 0.1 mg/dL (0.0-0.5); Bilirubin Total 0.3 mg/dL (0.0-1.0); Blood Urea Nitrogen 11 mg/dL (9-16); Calcium 9.8 mg/dL (8.4-10.2); Carbon Dioxide 29 mmol/L (22-29); Chloride 104 mmol/L (96-108); Creatinine Clr Calc Pharmacy 69.1; Estimated Glomerular Filt Rate > 60; Glucose Random 87 mg/dL (60-115); Sodium 140 mmol/L (135-145); Total Protein 7.8 g/dL (6.5-8.0)
[2023-12-14 15:36] VITALS: BP 156/80; PULSE 73; RESP 13; TEMP 36.7; O2SAT 95
[2023-12-14 16:48] VITALS: BP 156/80; PULSE 73; RESP 13; TEMP 36.7; O2SAT 95
== END 2023-12-14 16:48 | disposition home or self-care (01) ==
PROVIDERS: Physician Assistant; Emergency Provider Student in an Organized Health Care Education/Training Program; PCP Internal Medicine
DX: R21 Rash and other nonspecific skin eruption (principal); Z51.81 Encounter for therapeutic drug level monitoring
CPT/HCPCS: 36415; 80048; 80076; 85025; 85610; 99283

== ENCOUNTER 2024-01-26 10:06 | Outpatient (REF) | payer OTHER, SELFPAY ==
--- NOTE | ~2024-01-26 | US_ITS ---
EXAMINATION: US TRIPLEX LOWER EXTREMITY, BILATERAL CLINICAL INFORMATION: Patent COMPARISON: Lower extremity duplex 06/23/2015 TECHNIQUE: Color-flow triplex imaging with spectral analysis and compression Doppler were performed on the bilateral lower extremities. FINDINGS: Respiratory variation, normal compression and augmented flow are noted throughout the bilateral lower extremities. The visualized common femoral vein, superficial femoral vein, profunda femoral vein, popliteal and posterior tibial venous segments show no evidence of deep venous thrombosis bilaterally. The right peroneal vein is patent on the right, however, left peroneal vein is not visualized. There is no Piedra's cyst. US/US venous duplex LE BI IMPRESSION: No evidence of deep venous thrombosis involving the bilateral lower extremities. Electronically signed by: Jose Brice DO 01/26/2024 11:01 AM EDT
== END 2024-01-26 10:07 | disposition home or self-care (01) ==
LOC: HO.US 10:06
PROVIDERS: PCP Internal Medicine; Visit Provider Student in an Organized Health Care Education/Training Program
DX: R60.0 Localized edema (principal)
CPT/HCPCS: 93970

== ENCOUNTER 2024-02-21 08:22 | Outpatient (REF) | payer OTHER, SELFPAY ==
[2024-02-21 12:26] LABS: HBS Num1 0.65 mIU/mL (0-7.99); HBc Num1 0.32 S/CO (0.00-0.79); Hepatitis B Core Antibody Nonreactive (Nonreactive); Hepatitis B Surface Antigen Negative (Negative); ~HepC Num1 0.15 S/CO (0.00-0.79); ~Hepatitis B Surface Antibody NONREACTIVE (Nonreactive); ~Hepatitis C Antibody Nonreactive (Nonreactive)
== END 2024-02-21 08:23 | disposition home or self-care (01) ==
LOC: HO.HHCL 08:22
PROVIDERS: Visit Provider Internal Medicine
DX: K75.81 Nonalcoholic steatohepatitis (NASH) (principal)
CPT/HCPCS: 36415; 86704; 86706; 86803; 87340

== ENCOUNTER 2024-02-22 12:37 | Outpatient (AMB) | payer OTHER, SELFPAY ==
[2024-02-22 12:41] VITALS: BP 110/55; PULSE 82; BMI 29.9
--- NOTE | 2024-02-22 12:41 | MHC.OFFVIS ---
Vital Signs 02/22/24 12:41 Height 5 ft 2 in Weight 163 lb 9.328 oz BMI 29.9 BP 110/55 L Blood Pressure Location Lt brachial Position Sitting Pulse 82 Intake Visit Reasons: 6 month follow up GERD, IBS Intake Note: Patient in office today in 6 months follow up of GERD and IBS. CC: Patient c/o a burning sensation from epigastric region. Denies other GI symptoms. Drying Tunnel Operator Required: Yes Drying Tunnel Operator Name: daughter Accompanied by: Daughter Allergies No Known Allergies [No Known Allergies*] Allergy (Verified 04/18/24 14:04) HPI HPI 6 month follow up GERD, IBS: Details: Assessment & Plan (1) Colon cancer screening: Comment: 07/2023=negative repeat in 3 years;07/2019 for Cologuard negative Code(s): Z12.11 - Encounter for screening for malignant neoplasm of colon (2) GERD (gastroesophageal reflux disease): Code(s): K21.9 - Gastro-esophageal reflux disease without esophagitis (3) Abdominal bloating: Code(s): R14.0 - Abdominal distension (gaseous) (4) Irritable bowel syndrome with diarrhea: Code(s): K58.0 - Irritable bowel syndrome with diarrhea Plan Dutch # sister translates per patient request Her Cologuard test was negative on 07/2023 repeat in 3 years. She is now taking the Viberzi bid 75mcg along with her fiber pills and her stooling problems are well controlled and she is happy. She continues on pantoprazole and simethicone for GERD Return office visit in 6 months TODAYS VISIT Dutch # sister translates per patient request. She says that her stooling is well controlled on the Viberzi. Despite taking pantoprazole in the morning she is having burning in the gastric area that tends to be worse with eating and occurring mostly later in the day. I think she is having a fade of the affect him of so the pantoprazole which is common so will try giving her a dose of famotidine before supper to see if we can improve this. Return office visit in 8 weeks [facility] Medical History (Updated 04/18/24 @ 15:32 by Nevin López MD) Polyarticular osteoarthritis Bilateral primary osteoarthritis of knee Bilateral hand pain Epigastric pain Urinary incontinence Asthma Abnormal CT scan Colon cancer screening Pre-op examination Urinary urgency Urinary frequency Cervicalgia Fall Polyarthralgia Mild recurrent major depression Lab test positive for detection of COVID-19 virus Diabetes mellitus Abdominal bloating COVID-19 vaccine series completed Lumbar spondylosis Cervical spondylitis Muscle weakness Dyslipidemia Elevated CPK Osteopenia Diabetic 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 associated with type 2 diabetes mellitus rn 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 (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 Diabetes type 2, controlled Urge urinary incontinence Moderate asthma Vertigo Polyarthralgia Depression with anxiety Essential hypertension Surgical History History of surgery on extremity Hx of colonoscopy History of esophagogastroduodenoscopy (EGD) S/P SHERRY-BSO (total abdominal hysterectomy and bilateral salpingo-oophorectomy) History of tubal ligation Family History Father Hypertension Mother Cancer Sister Breast cancer Social History Household Members: Significant Other Housing: House Alcohol intake: never Patient Tobacco Use Status: Never used Tobacco e-Cigarette/Vaping Use: Never Used Second Hand Smoke Exposure: No service: No Current occupational status: disabled Review of Systems Const Denies fatigue, Denies fever(s), Denies night sweats, Denies poor appetite and Denies weight loss ENT Reports Normal hearing present, Denies dental pain, Denies dysphagia, Denies hearing loss, Denies mouth pain, Denies odynophagia, Denies throat swelling, Denies tongue swelling and Reports other (Dentition adequate) Card Reports no additional complaints Resp Reports no additional complaints GI Details: Reports abdominal pain, Denies melena, Denies bloating, Denies hematochezia, Denies constipation, Denies GI cramping, Denies dysphagia, Denies excessive flatus, Denies early satiety, Reports heartburn, Reports diarrhea, Denies nausea, Denies odynophagia, Denies vomiting and Denies hematemesis Skin/Breast Denies pruritus, Denies lesions, Denies rash and Denies jaundice Neuro Reports Normal hearing present and Denies Abnormal speech present Endo Denies fatigue Aller/Immun Denies throat swelling and Denies tongue swelling Physical Exam Vital Signs: Last Vital Signs Pulse 82 02/22/24 12:41 BP 110/55 L 02/22/24 12:41 BMI result Body Mass Index 29.9 Const General: cooperative, no acute distress, well developed and well groomed Nutritional Appearance: well nourished and overweight Orientation/consciousness: oriented to person, oriented to place and oriented to time Limitations: language barrier HEENT Head: Yes normocephalic and Yes atraumatic Eyes General: appearance normal, both eyes and all related structures Pupils: Equal, round and reactive pupils present Neck Neck: Yes normal visual inspection and Yes no lymphadenopathy Thyroid: Thyroid normal Resp Effort & Inspection: normal respiratory effort and able to speak in complete sentences Auscultation: clear to auscultation bilaterally Cardio Rate: regular rate Rhythm: regular rhythm Heart sounds: Normal, physiologic split S2 sound present Peripheral pulses: radial pulses present and posterior tibial pulses present GI Inspection: No distended, No Abdominal panniculus present and Yes obesity Palpation (GI): Soft to palpation, nontender, no guarding, not rigid and No hepatosplenomegaly present Percussion: Yes normal to percussion Auscultation: normal bowel sounds Rectal Exam - Female: deferred Skin General skin exam: no rashes or lesions noted, turgor normal, skin not dry, no jaundice, No spider nevi and no striae Rashes: no rashes Nails: normal Neuro General: oriented to person, oriented to place and oriented to time Cranial nerves: Yes Equal, round and reactive pupils present and Yes Normal hearing present Speech: No Abnormal speech present Extrem General: Yes normal to inspection, No clubbing, No cyanosis and No edema Psych Appearance: grossly normal and well kempt Mental Status: mental status grossly normal Speech and movement: Normal speech and movement present Affect: normal affect Attitude: cooperative Thought process: Normal thought process present and not confabulating Thought content: Normal thought content present Insight: Limited insight present (Psych) Judgement: Limited judgement present (Psych) Results Reviewed Results Reviewed: 07/2023 Cologuard negative repeat in 3 years Assessment & Plan Assessment & Plan (1) Irritable bowel syndrome with diarrhea: Code(s): K58.0 - Irritable bowel syndrome with diarrhea Category: Medical (2) GERD (gastroesophageal reflux disease): Code(s): K21.9 - Gastro-esophageal reflux disease without esophagitis Category: Medical (3) Abdominal bloating: Code(s): R14.0 - Abdominal distension (gaseous) Category: Medical (4) Encounter for colorectal cancer screening using Cologuard test: Comment: Her Cologuard test was negative on 07/2023 repeat in 3 years Code(s): Z12.11 - Encounter for screening for malignant neoplasm of colon; Z12.12 - Encounter for screening for malignant neoplasm of rectum Category: Medical Plan Dutch # sister translates per patient request. She says that her stooling is well controlled on the Viberzi. Despite taking pantoprazole in the morning she is having burning in the gastric area that tends to be worse with eating and occurring mostly later in the day. I think she is having a fade of the affect him of so the pantoprazole which is common so will try giving her a dose of famotidine before supper to see if we can improve this. Return office visit in 8 weeks Medications: New famotidine (Pepcid) 40 mg PO .qacsupper 30 tabs 6RF K21.9 - Gastro-esophageal reflux disease without esophagitis Changed From methylcellulose (laxative) 1,000 mg (2 x 500 mg) PO DAILY 30 days 60 tabs 6RF K58.0 - Irritable bowel syndrome with diarrhea To methylcellulose (laxative) (Citrucel) 1,000 mg (2 x 500 mg) PO DAILY 60 tabs 6RF 30 days K58.0 - Irritable bowel syndrome with diarrhea Refilled simethicone 180 mg PO TID 90 caps 6RF R14.0 - Abdominal distension (gaseous) pantoprazole 40 mg PO DAILY 90 tabs 2RF 90 days R10.13 - Epigastric pain Coding Level of Care Code Est Pt Level 3 (74209) Diagnoses Irritable bowel syndrome with diarrhea K58.0 GERD (gastroesophageal reflux disease) K21.9 Abdominal bloating R14.0 Encounter for colorectal cancer screening using Cologuard test Z12.11; Z12
== END 2024-02-22 13:19 | disposition home or self-care (01) ==
PROVIDERS: PCP Internal Medicine; Visit Provider Nurse Practitioner
DX: K58.0 Irritable bowel syndrome with diarrhea (principal); K21.9 Gastro-esophageal reflux disease without esophagitis; R14.0 Abdominal distension (gaseous)
CPT/HCPCS: 99213

== ENCOUNTER → 2024-02-22 12:37 | Outpatient (BNVA) | payer OTHER, SELFPAY | PROVIDERS: PCP Internal Medicine; Visit Provider Nurse Practitioner | DX: K21.9 Gastro-esophageal reflux disease without esophagitis (principal); R14.0 Abdominal distension (gaseous); K58.0 Irritable bowel syndrome with diarrhea; R10.13 Epigastric pain | CPT/HCPCS: 99212 ==

== ENCOUNTER 2024-02-23 13:20 | Outpatient (REF) | payer OTHER, SELFPAY ==
[2024-02-23 14:33] LABS: Anion Gap 10 (12-20); Blood Urea Nitrogen 14 mg/dL (9-16); Calcium 9.8 mg/dL (8.4-10.2); Carbon Dioxide 31 mmol/L (22-29); Chloride 105 mmol/L (96-108); Estimated Glomerular Filt Rate > 60; Glucose Random 81 mg/dL (60-115); Sodium 142 mmol/L (135-145)
[2024-02-23 14:37] LABS: B Type Natriuretic Peptide < 10 pg/mL (<100)
== END 2024-02-23 13:21 | disposition home or self-care (01) ==
LOC: HO.LAB 13:20
PROVIDERS: PCP Internal Medicine; Visit Provider Internal Medicine Cardiovascular Disease
DX: I10 Essential (primary) hypertension (principal); E78.5 Hyperlipidemia, unspecified
CPT/HCPCS: 36415; 80048; 83880

== ENCOUNTER 2024-03-05 07:39 | Outpatient (REF) | payer OTHER, SELFPAY ==
--- NOTE | ~2024-03-05 | US_ITS ---
EXAMINATION: US ABDOMEN COMPLETE CLINICAL INFORMATION: Elevated liver function tests. COMPARISON: CT abdomen and pelvis 01/11/2023. Limited abdominal ultrasound 07/28/2021. Ultrasound abdomen complete 07/02/2020. TECHNIQUE: Real-time imaging of the abdominal viscera. FINDINGS: PANCREAS: Normal. ABDOMINAL AORTA: The proximal, mid, and distal segments are normal in caliber. INFERIOR VENA CAVA: Visualized portions are normal. LIVER: The liver is normal in size. The liver contour is normal. Increased echogenicity of the liver parenchyma, this can be seen in the setting of hepatic steatosis or liver parenchymal disease. No focal hepatic lesion. There is no intrahepatic biliary duct dilatation seen. GALLBLADDER: Normal. The gallbladder is physiologically distended without evidence of stones, sludge, polyps, wall thickening or pericholecystic fluid. COMMON BILE DUCT: Normal in caliber measuring 0.5 cm in diameter. RIGHT KIDNEY: Normal. No hydronephrosis. No renal calculi or focal parenchymal lesions. The kidney measures 11.8 cm in maximum dimension. LEFT KIDNEY: Normal. No hydronephrosis. No renal calculi or focal parenchymal lesions. The kidney measures 12.1 cm in maximum dimension. SPLEEN: The spleen measures 9.1 cm in maximum dimension. Echogenic focus probably calcified granuloma 3 mm. FREE FLUID: None. US/US abdomen complete IMPRESSION: 1. Increased echogenicity of the liver parenchyma, this can be seen in the setting of hepatic steatosis or liver parenchymal disease. 2. No ultrasound evidence of intra or extrahepatic biliary dilatation. Electronically signed by: Amy Hutchinson MD 03/25/2024 06:56 PM [facility]
== END 2024-03-05 07:40 | disposition home or self-care (01) ==
LOC: HO.US 07:39
PROVIDERS: PCP Internal Medicine; Visit Provider Internal Medicine
DX: K75.81 Nonalcoholic steatohepatitis (NASH) (principal)
CPT/HCPCS: 76700

== ENCOUNTER 2024-04-18 13:55 | Outpatient (AMB) | payer OTHER, SELFPAY ==
--- NOTE | 2024-04-18 13:59 | A.OFFVIS_ITS ---
Vital Signs 04/18/24 14:05 Height 5 ft 2 in Weight 166 lb 0.129 oz BMI 30.4 BP 100/58 L Blood Pressure Location Lt brachial Position Sitting Pulse 91 Pulse Source Pulse Oximeter Pulse Oximetry (%) 95 Oxygen Delivery Method Room Air Intake Visit Reasons: OA Intake Note: Patient presents for OA. Home Health Cna Required: Yes Home Health Cna Language: Peer Health Promoter Services: Home Health Cna Offered & Declined Home Health Cna Name: Dunia Tena Information Interpreted: non-clinical & clinical Adapted Physical Education Teacher: Adapted Physical Education Teacher Present (Dunia Tena) Accompanied by: Daughter Allergies No Known Allergies [No Known Allergies*] Allergy (Verified 04/18/24 14:04) Medication List - Last Reconciled 04/18/24 by Nevin López MD acetaminophen (Tylenol Extra Strength) 500 mg PO QID PRN acetaminophen ER (Mapap Arthritis Pain) 650 mg PO Q12H PRN albuterol sulfate 2.5 mg (3 mL) inhalation TID 30 days albuterol sulfate 90 mcg/actuation (Ventolin HFA) 0 mcg inhalation alcohol swabs (Alcohol Prep Pads) 1 pad topical QID 0 days amlodipine 5 mg PO DAILY aspirin 81 mg PO DAILY blood sugar diagnostic (FreeStyle Lite Strips) test three times a day calcium carbonate 600 mg PO BID 30 days calcium polycarbophil (Fiber-Lax) 1,250 mg (2 x 625 mg) PO BID codeine-guaifenesin 10-100 mg/5 mL 5 mL PO Q6H PRN dulaglutide 1.5 mg (0.5 mL) subcut QWEEK 30 days eluxadoline (Viberzi) 75 mg PO BID empagliflozin-metformin 12.5-1,000 mg (Synjardy) 1 tab PO BID famotidine (Pepcid) 40 mg PO .qacsupper fluticasone propionate 220 mcg/actuation (Flovent HFA) 1 puff PO BID 90 days hydrocortisone 1% 1 appl topical BID PRN hydroxyzine HCl 10 mg PO TID PRN 30 days lancets (FreeStyle Lancets) test three times a day lisinopril 30 mg PO DAILY 90 days loratadine 10 mg PO DAILY 90 days meclizine 25 mg PO BID PRN methylcellulose (laxative) (Citrucel) 1,000 mg (2 x 500 mg) PO DAILY 30 days montelukast 10 mg PO DAILY oxybutynin chloride ER 10 mg PO DAILY 90 days pantoprazole 40 mg PO DAILY 90 days prednisone 40 mg (2 x 20 mg) PO DAILY 5 days pregabalin (Lyrica) 100 mg PO BID simethicone 180 mg PO TID trazodone 25 mg PO BEDTIME PRN venlafaxine ER 37.5 mg PO DAILY HPI Comments Details: Patient is a 73-year-old female with GERD, IBS with diarrhea, diabetes complicated by diabetic 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, hypertension, hyperlipidemia, moderate asthma, depression with anxiety, polyarticular osteoarthritis (hands, L-spine, C-spine) and osteopenia here today for follow-up Interval History: Patient last seen 10/18/2023 with Naty Barrientos. At that time patient was complaining of bilateral hand pain, knee pain and neck pain with proven osteoarthritis on imaging and physical exam. There is no evidence of synovitis at that time. Recommended conservative management including home exercises and continuing Tylenol and Lyrica. Today Patient complains of polyarticular joint pain involving the hands, bilateral hips and knees Rheumatologic History: Polyarthralgias secondary to osteoarthritis Current Rheumatology Medication(s): Pregabalin 100mg bid Topical diclofenac qid PFSH Medical History (Updated 04/18/24 @ 15:32 by Nevin López MD) Polyarticular osteoarthritis Bilateral primary osteoarthritis of knee Bilateral hand pain Epigastric pain Urinary incontinence Asthma Abnormal CT scan Colon cancer screening Pre-op examination Urinary urgency Urinary frequency Cervicalgia Fall Polyarthralgia Mild recurrent major depression Lab test positive for detection of COVID-19 virus Diabetes mellitus Abdominal bloating COVID-19 vaccine series completed Lumbar spondylosis Cervical spondylitis Muscle weakness Dyslipidemia Elevated CPK Osteopenia Diabetic 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 associated with type 2 diabetes mellitus senior care (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 Diabetes type 2, controlled Urge urinary incontinence Moderate asthma Vertigo Polyarthralgia Depression with anxiety Essential hypertension Surgical History History of surgery on extremity Hx of colonoscopy History of esophagogastroduodenoscopy (EGD) S/P SHERRY-BSO (total abdominal hysterectomy and bilateral salpingo-oophorectomy) History of tubal ligation Family History Father Hypertension Mother Cancer Sister Breast cancer Social History Household Members: Significant Other Housing: House Alcohol intake: never Patient Tobacco Use Status: Never used Tobacco e-Cigarette/Vaping Use: Never Used Second Hand Smoke Exposure: No service: No Current occupational status: disabled Review of Systems Const Details: Review of Systems Constitutional: Denies fever, chills, weight loss ENT: Denies vision changes, eye pain or eye redness, dental caries, dry mouth GI: Denies nausea, vomiting, diarrhea, abdominal pain, change in BM Pulm: Denies SOB, PALMER, hemoptysis, wheezing Cards: Denies chest pain, palpitations Skin: Denies Raynaud's, rash, nail changes, photosensitivity, DISC PAD KNOCKOUT WORKER: Denies headaches, weakness, paresthesias, recurrent falls MSK: as per HPI All other systems reviewed and are unremarkable except noted above Physical Exam Vital Signs: Last Vital Signs Pulse 91 04/18/24 14:05 BP 100/58 L 04/18/24 14:05 Pulse Ox 95 04/18/24 14:05 Oxygen Delivery Method Room Air 04/18/24 14:05 BMI result Body Mass Index 30.4 Vital signs reviewed. Constitutional: Non-toxic appearing. No acute distress. Well-developed and well-nourished. Skin: Warm and dry. No rashes or lesions noted. Neck: Full and painless range of motion. No cervical lymphadenopathy. Cardio: Regular rate and rhythm. No murmurs, gallops, or rubs. No lower extremity edema. No JVD. Pulmonary: No respiratory distress. No accessory muscle usage. Neuro: Alert and oriented x4. EXTREMITIES: No edema, no calf tenderness, normal peripheral pulses. JOINT EXAM:? Hands: LEFT: Normal pain-free range of motion without tenderness, swelling, increased warmth or erythema over the joints. Able to make a full fist and has a good teletype installer strength. Wide spread diffuse mild tenderness reported to palpation throughout the hand and over the forearm. RIGHT: Normal pain-free range of motion without tenderness, swelling, increased warmth or erythema over the joint. Able to make a full fist and has a good teletype installer strength. Flexion deformity 5th DIP. Widespread diffuse mild tenderness reported to palpation throughout the hand over the forearm. Wrists:? Normal pain-free range of motion without tenderness, swelling, increased warmth or erythema. Elbows:Normal pain-free range of motion without tenderness, swelling, increased warmth or erythema. Shoulders:? Has full active range of motion to bilateral shoulders but does note pain at the extreme of the range of motion. Tenderness to palpation of the AC joint bilaterally Knees:?? Full range of motion bilaterally. Bilateral crepitations noted. Trace effusion to the left knee. Right knee without effusion. Tender points: Tenderness to digital palpation at the occiput, trapezius, second rib, lateral epicondyle, knees, greater trochanter and gluteal area bilaterally. Results Reviewed Results Reviewed: Laboratory Tests 06/08/21 10/13/23 14:36 11:27 ESR 14 C-Reactive Protein 0.26 SHARON Screen NEGATIVE XR Bilateral Hands 08/07/21 FINDINGS: Right Hand: No periarticular osteopenia or active erosions. Mild osteoarthritis of the interphalangeal joints with narrowing and small marginal osteophytes. Carpal joint spaces are preserved. No acute osseous abnormality. Left Hand: No periarticular osteopenia or erosions. Mild osteoarthritis of the interphalangeal joints with narrowing and small marginal osteophytes. Probable remote, healed fracture of the 3rd metacarpal. Moderate osteoarthritis of the triscaphoid articulation. Assessment & Plan Assessment & Plan (1) Polyarticular osteoarthritis: Code(s): M15.9 - Polyosteoarthritis, unspecified Category: Medical Plan: #Bilateral hand OA Patient with polyarticular OA Failed response to corticosteroid injections Recommended topical diclofenac up to 4 times a day Patient would like to try viscosupplementation Discussed that if the above options fail she will need to see ortho for conside ration of joint replacement RTC May for Euflexxa injections to bilateral knees Plan I spent 20 minutes reviewing the record and labs, seeing the patient, discussing the treatment plan and documenting in the medical record Medications: Changed From pregabalin (Lyrica) 100 mg PO BID M19.041 - Primary osteoarthritis, right hand, M19.042 - Primary osteoarthritis, left hand To pregabalin (Lyrica) 100 mg PO BID 90 days 180 caps 2RF M19.041 - Primary osteoarthritis, right hand, M19.042 - Primary osteoarthritis, left hand Coding Level of Care Code Est Pt Level 3 (39064) Diagnoses Polyarticular osteoarthritis M15.9
[2024-04-18 14:05] VITALS: BP 100/58; PULSE 91; O2SAT 95; BMI 30.4
--- OUTSIDE RECORDS SUMMARY | 2024-04-19 02:38 | XMS_ITS | Continuity of Care Document ---
Author Organization [facility], [place] - [facility] Address [address] [place] [id number] Care Team Providers Care Groundhand Name Role Phone HIM [facility] OTHER [facility] OTHER [phone] Assessment Encounter Date Assessment Date Assessment LastModified by Organization Details LastModified Time 01/19/2024 01/19/2024 I provided real -time medical direction via phone for this encounter, and was available for additional phone based assistance as needed. I have reviewed and agree with the Assessment and Plan as documented by the Testing Lead. We discussed the diagnostic uncertainty of home visits and the risk associated with this. In this case the patient and I felt this to be an acceptable and reasonable amount of risk given the benefit of avoiding an ED visit. The patient given the opportunity to ask questions. Advised if develops CP/severe SOB/turning blue/uncontrolle d n/v/d or black/bloody emesis or stool/ AMS/ syncope/ hi fever/cold, blue, or numb leg(s) or intolerable pain in her legs to call 911- verbalized understanding of instruction [id number] Not available 01/19/2024 15:13:59 Plan of Treatment Reminders Order Date Submit Date Provider Last Modified By Organization Details Last Modified Time Details Appointments None recorded. Lab glucose, fingerstic k, blood 2023 024 [email or web address] [facility], [address] [place] [address], [id number], 4 23:29:05 BMP, serum or plasma 2023 024 [email or web address] [facility], [address] [place] [address], [phone], 4 23:29:03 Referral None recorded. Procedures None recorded. Surgeries None recorded. Imaging None recorded. Medication Orders ketorolac 30 mg/mL injection solution 2023 024 [email or web address] [id number] [facility] #[id number], [address] [facility], [place], [address], 23:29:03 Patient TargetsNo targets recorded. Patient InstructionsNo instructions recorded. Reason for Referral None Reported. Results Created Date Observation Date Name Description Value Unit Range Abnormal Flag Note LastModifiedBy Organization Detail LastModifiedTime 01/19/20 24 01/19/2024 gluco se, donya celis k, blood Blood Glucose: mg/dl 115 Not Available [facility] [address] [place] [address], [phone], 01/19/2024 15:14:35 Result Notes None recorded. Medical Equipment None Reported. Allergies No known drug allergies Medications Name Sig Start Date Stop Date Status Note LastModified by Organization Details LastModified Time cyclobenzapr ine 10 mg tablet TAKE 1 TABLET BY MOUTH EVERY 8 HOURS IF NEEDED FOR MUSCLE SPASMS active Not Available Not Available No t Available venlafaxine ER 37.5 mg capsule,exte nded release 24 hr TAKE 1 CAPSULE BY MOUTH ONCE A DAY FOR SYMPTOMS OF DEPRESSION/ ANXIETY. active Not Available Not Available No t Available doxycycline hyclate 100 mg capsule TOME 1 C PSULA POR V A ORAL DOS VECES AL D A X7 DAYS active Not Available Not Available No t Available albuterol sulfate 2.5 mg/3 mL (0.083 %) solution for nebulization INHALE 1 AMPULE USING A NEBULIZER THREE TIMES DAILY active Not Available Not Available No t Available trazodone 50 mg tablet TAKE 1-2 TABLETS POR V A ORAL AL ACOSTARSE CUANDO SEA NECESARIO FOR INSOMNIA active Not Available Not Available No t Available oxybutynin chloride ER 10 mg tablet,exten ded release 24 hr TAKE 1 TABLET BY MOUTH EVERYDAY AT NOON active Not Available Not Available No t Available simethicone 180 mg capsule TOME TIFFANIE C PSULA FRANCINE VECES AL D A active Not Available Not Available No t Available sucralfate 1 gram tablet TOME DOS TABLETAS POR V A ORAL TODOS LOS D active Not Available Not Available No t Available FreeStyle Lancets 28 gauge USE 1 EVERY 12 (TWELVE) HOURS. active Not Available Not Available No t Available prednisone 20 mg tablet TOME DOS TABLETAS POR V A ORAL A DIARIO POR 5 D active Not Available Not Available No t Available diphenoxylat e-atropine 2.5 mg-0.025 mg tablet TAKE 1 TABLET BY MOUTH IF NEEDED IN THE MORNING AND AT BEDTIME FOR DIARRHEA. active Not Available Not Available No t Available amlodipine 5 mg tablet TOME TIFFANIE TABLETA TODOS LOS D EN LA MA SHARON active Not Available Not Available No t Available aspirin 81 mg tablet,delay ed release TOME 1 TABLETA POR V A ORAL TODOS LOS D active Not Available Not Available No t Available tramadol 50 mg tablet TAKE 1 TABLET (50 MG) BY MOUTH EVERY 12 (TWELVE) HOURS IF NEEDED FOR SEVERE PAIN. active Not Available Not Available No t Available acetaminophe n ER 650 mg tablet,exten ded release TOME TIFFANIE TABLETA CADA OCHO HORAS CUANDO SEA NECESARIO PARA EL DOLOR active Not Available Not Available No t Available calcium 600 mg (as calcium carbonate 1,500 mg) tablet TAKE 1 TABLET BY MOUTH TWICE A A DAY active Not Available Not Available No t Available dicyclomine 20 mg tablet TAKE 1 TABLET BY MOUTH THREE TIMES DAILY IN THE MORNING, AT NOON, AND IN THE EVENING active Not Available Not Available No t Available meclizine 25 mg tablet TAKE 1 TABLET BY MOUTH 2 TIMES EVERY DAY NEEDED FOR DIZZINESS active Not Available Not Available No t Available hydrocortiso ne 1 % topical cream APPLY TOPICALLY 2 TIMES A DAY NEEDED FOR RASH. AVOID FACE, HANDS, FEET AND GENITAL REGION active Not Available Not Available No t Available pantoprazole 40 mg tablet,delay ed release TOME 1 TABLETA POR V A ORAL TODOS LOS D active Not Available Not Available No t Available lisinopril 30 mg tablet TOME 1 TABLETA POR V A ORAL TODOS LOS D EN LA SHAYLA SHARON active Not Available Not Available No t Available Banophen 25 mg capsule TAKE 1 CAPSULE BY MOUTH EVERY 8 HOURS IF NEEDED FOR ITCHING OR ALLERGIES. active Not Available Not Available N ot Available montelukast 10 mg tablet TOME TIFFANIE TABLETA TODOS LOS D AT NOCHE active Not Available Not Available Not Available hydroxyzine HCl 25 mg tablet TAKE 1 TABLET BY MOUTH THREE TIMES DAILY NEEDED FOR ITCHING active Not Available Not Available Not Available codeine 10 mg-guaifenes in 100 mg/5 mL oral liquid TAKE 5 ML ORALLY CADA SEIS HORAS CUANDO SEA NECESARIO FOR COUGH *NOT COVERED* active Not Available Not Available No t Available fluticasone propionate 220 mcg/actuatio n HFA aerosol inhaler INHALE 1 PUFFS BY MOUTH TWICE DAILY RINSE MOUTH AFTER USING. active Not Available Not Available No t Available clobetasol 0.05 % topical ointment APLIQUE CAPA JUANCHO EL DALLIN AFECTADA DOS VECES AL D A active Not Available Not Available No t Available lorazepam 1 mg tablet TAKE ONE TABLET ONE HOUR BEFORE THE PROCEDURE. active Not Available Not Available N ot Available hydroxyzine HCl 10 mg tablet TOME TIFFANIE TABLETA FRANCINE VECES AL D A FOR 30 DAYS NEEDED FOR ITCHING active Not Available Not Available No t Available loratadine 10 mg tablet TOME TIFFANIE TABLETA TODOS LOS D active Not Available Not Available No t Available Ventolin HFA 90 mcg/actuatio n aerosol inhaler TOME DOS INHALACIONE S POR V A ORAL CUATRO VECES AL D A active Not Available Not Available No t Available Fiber-Lax 625 mg tablet active Not Available Not Available Not Available Alcohol Prep Pads USE SEG N LO INDICADO CUATRO VECES AL D A active Not Available Not Available No t Available Fiber Therapy (methylcellu lose) 500 mg tablet TOME TIFFANIE TABLETA POR V A ORAL TODOS LOS D EN LA MA SHARON active Not Available Not Available No t Available pregabalin 100 mg capsule TAKE 1 CAPSULE BY MOUTH TWICE DAILY IN THE MORNING AND AT BEDTIME (for nerve pain) active Not Available Not Available No t Available BD Ultra-Fine Short Pen Needle 31 gauge x 5/16 USE SEG N LO INDICADO CUATRO VECES AL D A active Not Available Not Available No t Available peg 3350-electro lytes 236 gram-22.74 gram-6.74 gram-5.86 gram solution MIX DIRECTED AND DRINK 240mls EVERY 10 MINUTES DIRECTED. NO MORE THAN 2000 mls. active Not Available Not Available No t Available FreeStyle Lite Strips USE 1 DIRECTED 3-4 TIMES EVERY DAY active Not Available Not Available No t Available Lantus Solostar U-100 Insulin 100 unit/mL (3 mL) subcutaneous pen INJECT 7 UNITS SUBCUTANEOS ADRIANA EVERYDAY active Not Available Not Available No t Available calamine 8 %-zinc oxide 8 % lotion APPLY TOPICALLY IF NEEDED FOR ITCHING. active Not Available Not Available No t Available diclofenac 1 % topical gel APPLY TO BACK TWICE DAILY active Not Available Not Available No t Available Creon 24,000-76,00 0-120,000 unit capsule,ekaterina yed release TAKE 1 CAPSULE BY MOUTH FOUR TIMES DAILY active Not Available Not Available Not Available ketorolac 30 mg/mL injection solution Inject 0.5 mL by intravenous route. 2023 active Not Available Not Available Not Avai lable Trulicity 1.5 mg/0.5 mL subcutaneous pen injector PLEASE SEE ATTACHED FOR DETAILED DIRECTIONS active Not Available Not Available N ot Available Synjardy 12.5 mg-1,000 mg tablet TOME 1 TABLETA POR VIA ORAL DOS VECES AL FREDIS active Not Available Not Available No t Available Viberzi 75 mg tablet TOME TIFFANIE TABLETA DOS VECES AL D A CON ALIMENTO active Not Available Not Available No t Available Flowflex COVID-19 Antigen Home Test kit active Not Available Not Available Not Available Vitals Date Recorded Body temperature Respiratory rate Body weight Heart rate Oxygen saturation Oxygen saturation in Arterial blood by Pulse oximetry Systolic blood pressure Diastolic blood pressure Provider Name and Address Organization Details Last Updated DateTime 4 98 [degF] 20 /min 22250.9 04 g 92 /min 96 % 96 % 175 mm[Hg] 92 mm[Hg] Not Available [facility] - production 4 14:54:20 Social History None recorded. Functional Status None recorded. Mental Status None recorded. Family History Nothing Reported. Medical History No medical history recorded. Gynecological HistoryNo gynecological history recorded. Obstetrics History GPAL:G 0 P 0 0 0 0 Past Encounters Encounter ID Performer Location Encounter Start Date Encounter Closed Date Diagnosis/Indication Diagnosis SNOMED-CT Code Diagnosis ICD10 Code [id number] MARBIN GREER MD Main - [facility] [address] [place] [phone] 01/12/2024 16:27:03 01/12/2024 22:17:41 Acute dermatitis 73397265 L30.9 [id number] Shakira Whitmore MD Main - [facility] [address] [place] [phone] 01/19/2024 14:54:17 01/20/2024 13:26:27 Pain in bilateral legs [id number] [id number] M79.604 M79.605 Health Concerns Section Related Observation LastModified by Organization Detai ls LastModified Time None Recorded Concern Status LastModified by Organization Details LastModified Time None Recorded Payers Encounter Date Sequence Insurance Name Policy Number Policy Wong Covered Member ID Wong Member ID Guarantor Name 01/19/2024 1 [facility] - DOS ON OR AFTER 2022 - DUAL ELIGIBLE - [employer] OPTIONS AND ONE [employer] (MEDICARE REPLACEMENT/AD VANTAGE - HMO) Mercedes Og [id number] Mercedes Ottmartin Notes Date Note Type Note Provider Name and Address Organization Details Recorded Time 01/19/2024 text/html HPI: Member's daughter/ EC Sharon called into the [facility] asking if someone could come see her mother. She states her mother is complaining and whining of bilateral leg pain down to her toes where she is having trouble walking with this pain. She reports that Mercedes has a history of Arthritis. She states she took her Lyrica this morning but rates her pain 10/10 at this time. She does use a cane and walker in the home as needed. Sharon will be present to translate as Mercedes is Georgian speaking. .................. .................. .................. .................. .................. .................. .................. ............... [facility] Nurse Triage Notes (Maday Lindsey): Chief Complaints: Pain PMH: Hypertension, Diabetes, COPD/Asthma Comments: Reviewed HPI- no further info needed.Hpatterson RNPlease review allergies w/ member/unknown. Testing Lead Organization Information for [facility] Legal Name: [facility] ? Address: [address] [place] [address], [place] [address], [employer]: Tye Okeefe MD JUAN MIGUEL No.: [id number] Testing Lead POC Test Results from [facility] - [facility] Blood Glucose Measurement (14:40:43) Blood Glucose: 115 mg/dL iSTAT Chem8+ (15:14:18) Na: 140 mEq/L K: 3.7 mEq/L Cl: 99 mEq/L iCa: 1.16 mmol/L TCO2: 28 mmol/L Glu: 116 mg/dL BUN: 11 mg/dL Crea: 0.6 mg/dL Hct: 43 % Hb: 14.6 g/dL A .................. .................. .................. .................. .................. .................. .................. ............... Testing Lead Note From [facility]: Pt found in residence lying supine on couch legs slightly elevated with pillow, CAOX4 Georgian speaking only. Pt daughter on scene able to translate for pt. Providers learned that bilateral leg pain from feet to just below pelvis x2 days with no fall or traumatic injury. Pt reports pain on palpation to legs. No medication taken for pain management at home. Pt has salve on legs for pain management, not effective. Vitals taken and blood glucose obtained. Assessment found -sob, -cp, -td, -jvd, -n/v/d, -dizzy. Pt denies head ache, states pain only in bilateral legs. CSM assessed, abnormal movement due to pain, pedal pulses found, no numbness noted. [facility] contacted and Providers directed to assess pt legs for DVT, no findings noted. [facility] directed providers to perform Daniel test for DVT, [facility] directing providers on how to perform. Test result negative. [facility] advised providers to alert pt of possibility of blood clot that is undetected at this time, [facility] sending note to PCP to assess pt legs with ultrasound. [facility] directed providers to give 1G tylenol PO and to draw labs assessing for kidney function. Labs drawn and provided to [facility], [facility] directing 15 mg Toradol to be administered IM for one time pain dose. Provider went over red flags with pt and directed pt to take home prescribed tylenol as directed per direction of [facility]. Providers alerted pt and daughter to call 911 and be transported to the hospital for any change in leg condition, including cold ble legs or severe localized pain in legs. Providers then left scene. [facility] Lab Orders: glucose, fingerstick, blood: Performed .................. .................. .................. .................. .................. .................. .................. ............... Disposition: Fulfilled SEGMD: Patient denies fever, chills, short of breath, chest pain. She denies any trauma. She has had increased pain for 2 days -patient has Tylenol 650 mg OA every 8 hours as a prescription but she has not taken any 2-day. She has taken Lyrica and topical salve. Shakira Whitmore MD [address] [facility],[address], [place], [phone], [employer] [facility] [employer] 01/19/2024 23:29:46 OBGyn Episode No OBEpisode recorded.
--- OUTSIDE RECORDS SUMMARY | 2024-04-19 02:38 | XMS_ITS | Data Portability ---
Author Organization [place] [place] [facility] [place] Address [address] [place] [address] Care Team Providers Care Special Education Inclusion Teacher Name Role Phone HIM [facility] OTHER [facility] OTHER [phone] Assessment Encounter Date Assessment Date Assessment LastModified by Organization Details LastModified Time 09/23/2021 09/23/2021 I have reviewed and agree with the assessment and plan as documented by the director software quality assurance. I provided real-time medical direction for this encounter and was immediately available to provide additional phone-based assistance as needed. Patient with multiple symptoms over the last 3 days. Most bothersome is bilateral leg discomfort and swelling (patient states she has had this in the past). Also congestion, nonprod cough and vertigo. (Has had vertigo before). Reports over the weeks sxs seem to be improving. AVSS and well appearing per report. Plan for leg elevation while resting and at night, increasing APAP to standing TID for discomfort, and PCP visit request. Rapid COVID test negative. Entirety of history and discussion conducted with the use of professional medical associate. REQUEST THAT CARE TEAM ATTEMPT TO ESTABLISH URGENT PCP VISIT FOR PATIENT'S MULTIPLE COMPLAINTS FOR IN-PERSON EXAM DIONY. [email or web address] Not available 09/23/2021 18:56:13 01/12/2024 01/12/2024 73 yo F with few days of rash, previously seen in ED and given oral prednisone. Rash mostly resolved but pruritus persists. No other symptoms. VS wnl. Will send rx clobetasol ointment to use BID until resolution. If persists, would rec derm referral. [email or web address] Not available 01/12/2024 19:09:28 01/19/2024 01/19/2024 I provided real -time medical direction via phone for this encounter, and was available for additional phone based assistance as needed. I have reviewed and agree with the Assessment and Plan as documented by the Manager File. We discussed the diagnostic uncertainty of home [...] to call 911- verbalized understanding of instruction [email or web address] Not available 01/19/2024 15:13:59 Plan of Treatment Reminders Order Date Submit Date Provider Last Modified By Organization Details Last Modified Time Details Appointments None recorded. Lab glucose, fingerstick , blood 2023 024 [email or web address] 0 [facility], [address] [place] [address], [phone], 4 23:29:05 BMP, serum or plasma 2023 024 [email or web address] 0 [facility], [address] [place] [address], [phone], 4 23:29:03 Referral None recorded. Procedures None recorded. Surgeries None recorded. Imaging None recorded. Medication Orders clobetasol 0.05 % topical ointment 2023 024 [facility] #[id number], [address] [place], [address], 4 17:58:36 ketorolac 30 mg/mL injection solution 2023 024 [email or web address] 0 [facility]/Pharmacy #[id number], [address] [place], [address], 4 23:29:03 Patient TargetsNo targets recorded. Patient InstructionsNo instructions recorded. Reason for Referral None Reported. Results Created Date Observation Date Name Description Value Unit Range Abnormal Flag Note LastModifiedBy Organization Detail LastModifiedTime 01/19/20 24 01/19/2024 gluco se, finge rsmartin k, blood Blood Glucose: mg/dl 115 Not Available [facility] [address] [place] [address], [place], [phone], 01/19/2024 15:14:35 Result Notes None recorded. Medical [...] Ultra-Fine Short Pen Needle 31 gauge x /16 USE SEG N LO INDICADO CUATRO VECES [...] Not Available Not Available Vitals Date Recorded Heart rate Body weight Oxygen saturation Oxygen saturation in Arterial blood by Pulse oximetry Respiratory rate Body temperature Systolic blood pressure Diastolic blood pressure Provider Name and Address Organization Details Last Updated DateTime 4 82 /min 83093.9 04 g 98 % 98 % 16 /min 98.2 [degF] 132 mm[Hg] 84 mm[Hg] Not Available [employer] 4 16:27:09 Date Recorded Body temperature Respiratory rate Body weight Heart rate Oxygen saturation Oxygen saturation in Arterial blood by Pulse oximetry Systolic blood pressure Diastolic blood pressure Provider Name and Address Organization Details Last Updated DateTime 4 98 [degF] 20 /min 13200.9 04 g 92 /min 96 % 96 % 175 mm[Hg] 92 mm[Hg] Not Available [employer] 4 14:54:20 Date Recorded Body temperature Heart rate Oxygen saturation Oxygen saturation in Arterial blood by Pulse oximetry Respiratory rate Systolic blood pressure Diastolic blood pressure Provider Name and Address Organization Details Last Updated DateTime 2 98 [degF] 92 /min 97 % 97 % 18 /min 111 mm[Hg] 73 mm[Hg] Not Available [employer] 2 18:51:50 Social History None recorded. Functional Status None recorded. Mental Status None recorded. Family History Nothing Reported. Medical History No medical history recorded. Gynecological HistoryNo gynecological history recorded. Obstetrics History GPAL:G 0 P 0 0 0 0 Past Encounters Encounter ID Performer Location Encounter Start Date Encounter Closed Date Diagnosis/Indication Diagnosis SNOMED-CT Code Diagnosis ICD10 Code [id number] Yoandy Btaes MD [facility] [address] [place] [id number] 09/23/2021 18:51:47 01/08/2022 15:34:41 Pain in lower limb 33215672 M79.606 Cough 44068012 R05.1 Dizziness [id number] R42 [id number] MARBIN GREER MD [facility] [address] [place] [id number] 01/12/2024 16:27:03 01/12/2024 22:17:41 Acute dermatitis 88949139 L30.9 [id number] Shakira Whitmore MD [facility] [address] [place] [id number] 01/19/2024 14:54:17 01/20/2024 13:26:27 Pain in bilateral legs 2629321318 9099832 M79.604 M79.605 Health Concerns Section Related Observation LastModified by Organization Detai ls LastModified Time None Recorded Concern Status LastModified by Organization Details LastModified Time None Recorded Advance Directives Directive None Recorded Payers Encounter Date Sequence Insurance Name Policy Number Policy Wong Covered Member ID Wong Member ID Guarantor Name 09/23/2021 1 [facility] - DOS PRIOR TO 2022 - DUAL ELIGIBLE (MEDICARE REPLACEMENT/AD VANTAGE - HMO) Mercedes Foley [id number] Mercedes Foley 01/12/2024 1 [facility] - DOS ON OR AFTER 2022 - DUAL ELIGIBLE - PENITENTIARY OPTIONS AND ONE CARE (MEDICARE REPLACEMENT/AD VANTAGE - HMO) Mercedes Foley [id number] Mercedes Foley 01/19/2024 1 [facility] - DOS ON OR AFTER 2022 - DUAL ELIGIBLE - PENITENTIARY OPTIONS AND ONE CARE (MEDICARE REPLACEMENT/AD VANTAGE - HMO) Mercedes Foley [id number] Mercedes Foley Notes Date Note Type Note Provider Name and Address Organization Details Recorded Time 09/23/2021 text/html HPI: NKA Pt Hx of hypertension and DM, Hx of TIA now with complaints of: Pt reports dizziness, loss of appetite, ankle/foot edema, nasal congestion. Neg for Covid 09/21 .................. .................. .................. .................. .................. .................. .................. ............... Manager File Note: Sent to evaluate pt with poly complaints including dizziness, decreased appetite, and BLE edema. Upon arrival, pt supine in bed. Pt is awake and alert, airway open and patent, breathing regular. Skin is pink, warm, and dry. Pt reports symptoms since 09/21, including dizziness, non productive cough, post nasal discharge, sinus congestion, worse than normal bilateral knee pain and reported swelling in ankles/feet. Pt reports hx of vertigo and states she takes medication for it but doesn't know what it is or where it is. Pt states she's had dizziness like this in the past and it is made worse by moving her head or getting out of bed. Denies falls/trauma/synco pe. Neuro exam is unremarkable and speech is clear. Pt has active dry cough during visit, lung sounds are clear. Pt reporting that her bilateral chronic knee pain is worse than usual and radiating down into shins. No edema appreciated by this medic. Pt denies cp, sob, martell, n/v/d, fever/chills. BGL 106. Pt reports good fluid intake, normal output. Rapid covid test negative. Consulted [facility] who recommended that pt leave legs elevated when pt is at rest and this medic assisted by placing pillow under legs. [facility] recommends pt take APAP TID while symptomatic. Pt stated to [facility] that her symptoms have been slowly improving. [facility] will assist pt with getting urgent visit with PCP, as pt would rather not go to ER. Went over red flags and no further questions or concerns at this time. .................. .................. .................. .................. .................. .................. .................. ............... Disposition: Fulfilled Yoandy Bates MD [address] [facility],[address], [place], [address], [employer] 09/23/2021 18:57:08 01/12/2024 text/html HPI: Pt was prescribed prednisone on 12/13 for 5 days during ED visit for rash. Pt states that rash has returned on her left lower leg and foot, reports itching and redness but denies fever, blisters, bleeding, denies shortness of breath. Other PMH: hypertension, GERD, anemia .................. .................. .................. .................. .................. .................. .................. ............... [facility] Nurse Triage Notes (Maday Lindsey): Chief Complaints: Rash, Cellulitis PMH: COPD/Asthma, Hypertension, Diabetes Comments: Pt was prescribed prednisone on 12/13 for 5 days during ED visit for rash. Pt states that rash has returned on her left lower leg and foot, reports itching and redness but denies fever, blisters, bleeding, denies shortness of breath. Reviewed HPI- no further info needed.Justo OCHOA .................. .................. .................. .................. .................. .................. .................. ............... Manager File Note From Son Yusuf: Pt co rash on left calf that is itchy. Pt was seen in ER last month for same issue given prednisone with relief however rash returned 4 days ago. Not as severe as before. Pt used vasoline on rash with no relief. Pt denies NVD fever, co sob, bleeding or weeping. Baseline vitals assessed, pics of rash uploaded. No open wounds in the area of rash. Afebrile. C contacted and Clobetasol cream called in. Pt advised to follow up with pcp. Pt education on signs indicating the ER. .................. .................. .................. .................. .................. .................. .................. ............... Disposition: Fulfilled MARBIN GREER MD [address] [place] [address],[address], [place], [address], [employer] 01/12/2024 19:09:36 01/19/2024 text/html HPI: Member's daughter/ EC Sharon [...] be present to translate as Mercedes is Guyanese speaking. .................. .................. .................. .................. .................. .................. .................. ............... [facility] Nurse Triage Notes (Maday Lindsey): Chief Complaints: Pain PMH: Hypertension, Diabetes, COPD/Asthma Comments: Reviewed HPI- no further info needed.Hpatterson RNPlease review allergies w/ member/unknown. Manager File Organization Information for [employer] Emy Legal Name: [employer] ? Address: [address] [place] [address], Apparatus Lineman: Tye Okeefe MD CLIA No.: [id number] Manager File POC Test Results from [facility] EDWINA Blood Glucose Measurement (14:40:43) Blood Glucose: 115 mg/dL iSTAT Chem8+ (15:14:18) Na: 140 mEq/L K: 3.7 mEq/L Cl: 99 mEq/L iCa: 1.16 mmol/L TCO2: 28 mmol/L Glu: 116 mg/dL BUN: 11 mg/dL Crea: 0.6 mg/dL Hct: 43 % Hb: 14.6 g/dL A .................. .................. .................. .................. .................. .................. .................. ............... Manager File Note From [employer] [facility]: Pt found in residence lying supine on couch legs slightly elevated with pillow, CAOX4 Guyanese speaking only. Pt daughter on scene able [...] pain, pedal pulses found, no numbness noted. [facility] contacted and Providers directed to assess pt legs for DVT, no findings noted. [facility] directed providers to perform Daniel test for DVT, [facility] directing providers on how to perform. Test result negative. [facility] advised providers to alert pt of possibility of blood clot that is undetected at this time, [facility] sending note to PCP to assess pt legs with ultrasound. [facility] directed providers to give 1G tylenol PO and to draw labs assessing for kidney function. Labs drawn and provided to [facility], [facility] directing 15 mg Toradol to be administered IM for one time pain dose. Provider went over red flags with pt and directed pt to take home prescribed tylenol as directed per direction of [facility]. Providers alerted pt and daughter to call 911 and be transported to the hospital for any change in leg condition, including cold ble legs or severe localized pain in legs. Providers then left scene. [facility] Lab Orders: glucose, fingerstick, blood: Performed .................. [...] Lyrica and topical salve. Shakira Whitmore MD [address] [place] [address],[address], [place], [phone], [employer], [employer] 01/19/2024 23:29:46 OBGyn Episode No OBEpisode recorded.
== END 2024-04-18 14:30 | disposition home or self-care (01) ==
PROVIDERS: PCP Internal Medicine; Visit Provider Student in an Organized Health Care Education/Training Program
DX: M15.9 Polyosteoarthritis, unspecified (principal)
CPT/HCPCS: 99213

== ENCOUNTER → 2024-04-18 13:55 | Outpatient (BNVA) | payer OTHER, SELFPAY | PROVIDERS: PCP Internal Medicine; Visit Provider Student in an Organized Health Care Education/Training Program | DX: M19.041 Primary osteoarthritis, right hand (principal); M19.042 Primary osteoarthritis, left hand; E11.42 Type 2 diabetes mellitus with diabetic 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 | CPT/HCPCS: 99212 ==

== ENCOUNTER 2024-05-15 13:02 | Outpatient (REF) | payer OTHER, SELFPAY ==
--- NOTE | ~2024-05-15 | XR_ITS ---
EXAMINATION: XR CHEST 2 VIEWS HISTORY: cough COMPARISON: Comparison is made with the prior examination dated 09/11/2023. FINDINGS: PA and lateral views of the chest are submitted. The lungs are expanded and clear. There is no pleural effusion, pneumothorax, or pulmonary vascular congestion. The heart is normal in size. The aorta is tortuous. There is degenerative disc disease of the spine. XR/XR chest 2V IMPRESSION: No acute cardiopulmonary abnormality. Electronically signed by: Oscar Gimenez MD 05/15/2024 01:29 PM GR[facility]
== END 2024-05-15 13:03 | disposition home or self-care (01) ==
LOC: HO.HHCX 13:02
PROVIDERS: Visit Provider Internal Medicine
DX: R05.1 Acute cough (principal)
CPT/HCPCS: 71046

== ENCOUNTER → 2024-05-15 13:02 | Outpatient (BNV) | payer OTHER, SELFPAY | PROVIDERS: Visit Provider Radiology Diagnostic Radiology | DX: R05.1 Acute cough (principal) | CPT/HCPCS: 71046 ==

== ENCOUNTER 2024-05-22 08:52 | Outpatient (AMB) | payer OTHER, SELFPAY ==
--- NOTE | 2024-05-22 09:05 | A.OFFVIS_ITS ---
Vital Signs 05/22/24 09:15 Height 5 ft 2 in Weight 167 lb 1.766 oz BMI 30.6 BP 112/60 Blood Pressure Location Lt brachial Position Sitting Pulse 80 Pulse Source Pulse Oximeter Pulse Oximetry (%) 96 Oxygen Delivery Method Room Air Intake Visit Reasons: OA /euflexa inj Intake Note: Patient presents for OA/Euflexa injection. Automatic Fancy Machine Operator Services: Automatic Fancy Machine Operator Offered & Declined Automatic Fancy Machine Operator Name: Diane Coyle Information Interpreted: non-clinical & clinical Licensed Pesticide Applicator: Licensed Pesticide Applicator Present (Diane Coyle) Accompanied by: Daughter Allergies No Known Allergies [No Known Allergies*] Allergy (Verified 05/22/24 09:14) HPI Comments Details: Patient is a 73-year-old female with GERD, IBS with diarrhea, 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 At that time patient was complaining of polyarticular joint pain secondary to osteoarthritis. She had failed intra- articular steroids in the past and is here today for her 1st Euflexxa injection Rheumatologic History: Polyarthralgias secondary to osteoarthritis Current Rheumatology Medication(s): Pregabalin 100mg bid Topical diclofenac qid PFSH Medical History (Updated 04/18/24 @ 15:32 by Nevin López MD) Polyarticular osteoarthritis Bilateral primary osteoarthritis of knee Bilateral hand pain Epigastric pain Urinary incontinence Asthma Abnormal CT scan Colon cancer screening Pre-op examination Urinary urgency Urinary frequency Cervicalgia Fall Polyarthralgia Mild recurrent major depression Lab test positive for detection of COVID-19 virus Diabetes mellitus Abdominal bloating COVID-19 vaccine series completed Lumbar spondylosis Cervical spondylitis Muscle weakness Dyslipidemia Elevated CPK Osteopenia Diabetic 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 associated with type 2 diabetes mellitus intermediate (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 Diabetes type 2, controlled Urge urinary incontinence Moderate asthma Vertigo Polyarthralgia Depression with anxiety Essential hypertension Surgical History History of surgery on extremity Hx of colonoscopy History of esophagogastroduodenoscopy (EGD) S/P SHERRY-BSO (total abdominal hysterectomy and bilateral salpingo-oophorectomy) History of tubal ligation Family History Father Hypertension Mother Cancer Sister Breast cancer Social History Household Members: Significant Other Housing: House Alcohol intake: never Patient Tobacco Use Status: Never used Tobacco e-Cigarette/Vaping Use: Never Used Second Hand Smoke Exposure: No service: No Current occupational status: disabled Review of Systems Const Details: Review of Systems Constitutional: Denies fever, chills, weight loss ENT: Denies vision changes, eye pain or eye redness, dental caries, dry mouth GI: Denies nausea, vomiting, diarrhea, abdominal pain, change in BM Pulm: Denies SOB, PALMER, hemoptysis, wheezing Cards: Denies chest pain, palpitations Skin: Denies Raynaud's, rash, nail changes, photosensitivity, FLIGHT CREW SCHEDULER: Denies headaches, weakness, paresthesias, recurrent falls MSK: as per HPI All other systems reviewed and are unremarkable except noted above Physical Exam Vital Signs: Last Vital Signs Pulse 80 05/22/24 09:15 BP 112/60 05/22/24 09:15 Pulse Ox 96 05/22/24 09:15 Oxygen Delivery Method Room Air 05/22/24 09:15 BMI result Body Mass Index 30.6 Vital signs reviewed. Constitutional: Non-toxic appearing. No acute distress. Well-developed and well-nourished. Skin: Warm and dry. No rashes or lesions noted. Neck: Full and painless range of motion. No cervical lymphadenopathy. Cardio: Regular rate and rhythm. No murmurs, gallops, or rubs. No lower extremity edema. No JVD. Pulmonary: No respiratory distress. No accessory muscle usage. Neuro: Alert and oriented x4. EXTREMITIES: No edema, no calf tenderness, normal peripheral pulses. JOINT EXAM:? Hands: LEFT: Normal pain-free range of motion without tenderness, swelling, increased warmth or erythema over the joints. Able to make a full fist and has a good vacuum cleaner mechanic strength. Wide spread diffuse mild tenderness reported to palpation throughout the hand and over the forearm. RIGHT: Normal pain-free range of motion without tenderness, swelling, increased warmth or erythema over the joint. Able to make a full fist and has a good vacuum cleaner mechanic strength. Flexion deformity 5th DIP. Widespread diffuse mild tenderness reported to palpation throughout the hand over the forearm. Wrists:? Normal pain-free range of motion without tenderness, swelling, increased warmth or erythema. Elbows:Normal pain-free range of motion without tenderness, swelling, increased warmth or erythema. Shoulders:? Has full active range of motion to bilateral shoulders but does note pain at the extreme of the range of motion. Tenderness to palpation of the AC joint bilaterally Knees:?? Full range of motion bilaterally. Bilateral crepitations noted. Trace effusion to the left knee. Right knee without effusion. Tender points: Tenderness to digital palpation at the occiput, trapezius, second rib, lateral epicondyle, knees, greater trochanter and gluteal area bilaterally. Office Procedures AMB Joint Injection/Aspiration Joint Injection/Aspiration Details: Procedure was explained to the patient and consent was obtained. ? The area of interest was identified and confirmed with patient. ?This was subsequently cleaned with chlorhexidine x3. ? The area was then anesthetized using ethyl chloride spray. 20mg Euflexxa administered. ?Minimal to no bleeding. ?Patient tolerated procedure. Primary Site: right knee Prep: site was prepped using aseptic technique Injected: other Approach Used: medial parapatellar Procedure: The patient tolerated the procedure well Coding 82757 - Large joint Procedure code (CPT) selection complete AMB Joint Injection/Aspiration Joint Injection/Aspiration Details: Procedure was explained to the patient and consent was obtained. ? The area of interest was identified and confirmed with patient. ?This was subsequently cleaned with chlorhexidine x3. ? The area was then anesthetized using ethyl chloride spray. 20mg Euflexxa administed. First medial parapatellar attempt met with resistance likely 2/2 to patellofemoral OA. Anterior approach successful. ?Minimal to no bleeding. ?Patient tolerated procedure. Primary Site: left knee Prep: site was prepped using aseptic technique Injected: other Approach Used: anterior Procedure: The patient tolerated the procedure well Coding 60785 - Large joint Procedure code (CPT) selection complete Office Meds Euflexxa 10 mg/mL (mw 2.4-3.6 million) intra-articular syringe Performing Provider: Nevin López MD [place] [facility] Administered by: Nevin López MD on 05/22/24 09:51 Dose Route Admin Location Dispensed Lot Number Expiration Date [facility] Head Esthetician 20 mg intra-articular 2 mL [id number] 04/07/25 [address]-7 [employer] Euflexxa 10 mg/mL (mw 2.4-3.6 million) intra-articular syringe Performing Provider: Nevin López MD Performing [place] [facility] Administered by: Nevin López MD on 05/22/24 09:51 Dose Route Admin Location Dispensed Lot Number Expiration Date [place] Head Esthetician 20 mg intra-articular 2 mL [id number] 04/07/25 [address]-0 [employer] Results Reviewed Results Reviewed: Laboratory Tests 06/08/21 10/13/23 14:36 11:27 ESR 14 C-Reactive Protein 0.26 SHARON Screen NEGATIVE XR Bilateral Hands 08/07/21 FINDINGS: Right Hand: No periarticular osteopenia or active erosions. Mild osteoarthritis of the interphalangeal joints with narrowing and small marginal osteophytes. Carpal joint spaces are preserved. No acute osseous abnormality. Left Hand: No periarticular osteopenia or erosions. Mild osteoarthritis of the interphalangeal joints with narrowing and small marginal osteophytes. Probable remote, healed fracture of the 3rd metacarpal. Moderate osteoarthritis of the triscaphoid articulation. Assessment & Plan Assessment & Plan (1) Polyarticular osteoarthritis: Code(s): M15.9 - Polyosteoarthritis, unspecified Category: Medical Plan: #Bilateral knee PA Patient with polyarticular OA Failed response to corticosteroid injections Recommended topical diclofenac up to 4 times a day S/p Euflexxa x 1 dose today Discussed that if the above options fail she will need to see ortho for consideration of joint replacement Plan -RTC 1 week for 2nd dose - Continue topical diclofenac Plan I spent 20 minutes reviewing the record and labs, seeing the patient, discussing the treatment plan and documenting in the medical record Orders: Orders AMB Joint Injection/Aspiration Today M17.0 - Bilateral primary osteoarthritis of knee AMB Joint Injection/Aspiration Today M17.0 - Bilateral primary osteoarthritis of knee Medications: New Euflexxa (sodium hyaluronate (viscosup)) 20 mg (2 mL) intra-articular ONCE 2 mL 0RF NS M17.0 - Bilateral primary osteoarthritis of knee Euflexxa (sodium hyaluronate (viscosup)) 20 mg (2 mL) intra-articular ONCE 2 mL 0RF NS M17.0 - Bilateral primary osteoarthritis of knee Coding Level of Care Code Est Pt Level 3 (42934) Diagnoses Polyarticular osteoarthritis M15.9 CPT Codes Coding - 24176 Large joint: 88580 - Large joint ([id number]) Coding - 03661 Large joint: 58493 - Large joint ([id number])
[2024-05-22 09:15] VITALS: BP 112/60; PULSE 80; O2SAT 96; BMI 30.6
--- OUTSIDE RECORDS SUMMARY | 2024-05-22 09:18 | XMS_ITS | Data Portability ---
Author Organization [employer] [employer] [facility] [employer] Address [address] [place] [address] Care Team Providers Care Ophthalmology Surgical Technician Name Role Phone HIM [facility] OTHER [facility] OTHER Assessment Encounter Date Assessment Date Assessment LastModified by Organization Details LastModified Time 09/23/2021 09/23/2021 I have reviewed and agree with the assessment and plan as documented by the drafter construction. I provided real-time medical direction for this [...] conducted with the use of professional medical staff credentialing coordinator. REQUEST THAT CARE TEAM ATTEMPT TO ESTABLISH [...] resolution. If persists, would rec derm referral. [email or web address] Not available 01/12/2024 19:09:28 01/19/2024 01/19/2024 I provided real -time medical direction via phone for this encounter, and was available for additional phone based assistance as needed. I have reviewed and agree with the Assessment and Plan as documented by the Mirror Polisher. We discussed the diagnostic uncertainty of home [...] to call 911- verbalized understanding of instruction [email or web address] Not available 01/19/2024 15:13:59 Plan of Treatment Reminders Order Date Submit Date Provider Last Modified By Organization Details Last Modified Time Details Appointments None recorded. Lab glucose, fingerstick , blood 2023 024 [email or web address] 0 [facility], [address] [place] [address], [phone], 4 23:29:05 BMP, serum or plasma 2023 024 [email or web address] 0 [facility], [address] [place] [address], [phone], 4 23:29:03 Referral None recorded. Procedures None recorded. Surgeries None recorded. Imaging None recorded. Medication Orders clobetasol 0.05 % topical ointment [address] [id number], [address] [place], [address], 4 17:58:36 ketorolac 30 mg/mL injection solution [email or web address] [id number], [address] [place], [address], 4 23:29:03 Patient TargetsNo targets recorded. Patient InstructionsNo instructions recorded. Reason for Referral None Reported. Results Created Date Observation Date Name Description Value Unit Range Abnormal Flag Note LastModifiedBy Organization Detail LastModifiedTime 01/19/20 24 01/19/2024 gluco se, finge rsmartin k, blood Blood Glucose: mg/dl 115 Not Available [facility] [address] [place] [address], [place], [address], 01/19/2024 15:14:35 Result Notes None recorded. Medical [...] Details Last Updated DateTime 4 82 /min 94856.9 04 g 98 % 98 % 16 /min 98.2 [degF] 132 mm[Hg] 84 mm[Hg] Not Available [facility] 4 16:27:09 Date Recorded Body temperature Respiratory rate Body weight Heart rate Oxygen saturation Oxygen saturation in Arterial blood by Pulse oximetry Systolic blood pressure Diastolic blood pressure Provider Name and Address Organization Details Last Updated DateTime 4 98 [degF] 20 /min 88287.9 04 g 92 /min 96 % 96 % 175 mm[Hg] 92 mm[Hg] Not Available [facility] 4 14:54:20 Date Recorded Body temperature Heart rate Oxygen saturation Oxygen saturation in Arterial blood by Pulse oximetry Respiratory rate Systolic blood pressure Diastolic blood pressure Provider Name and Address Organization Details Last Updated DateTime 2 98 [degF] 92 /min 97 % 97 % 18 /min 111 mm[Hg] 73 mm[Hg] Not Available [facility] 2 18:51:50 Social History None recorded. Functional Status None recorded. Mental Status None recorded. Family History Nothing Reported. Medical History No medical history recorded. Gynecological HistoryNo gynecological history recorded. Obstetrics History GPAL:G 0 P 0 0 0 0 Past Encounters Encounter ID Performer Location Encounter Start Date Encounter Closed Date Diagnosis/Indication Diagnosis SNOMED-CT Code Diagnosis ICD10 Code Diagnosis Note [id number] Yoandy Bates MD [facility] [address] [place] [id number] 09/23/2021 18:51:47 01/08/2022 15:34:41 Pain in lower limb 02810428 M79.606 Cough 80951418 R05.1 Dizziness [id number] R42 [id number] MARBIN GREER MD [facility] [address] [place] [id number] [id number] 01/12/2024 16:27:03 01/12/2024 22:17:41 Acute dermatitis [id number] L30.9 [id number] Shakira Whitmore MD [facility] [address] [place] [id number] [address] 01/19/2024 14:54:17 01/20/2024 13:26:27 Pain in bilateral legs [id number] 5081166 M79.604 M79.605 Likely osteoarthr itis given her history of sameAdvise d patient and daughter that I cannot completely rule out a DVT based on her exam, I have sent a request to her neurocritical care physician to work with the PCP to schedule outpatient ultrasound , and also encouraged the daughter to call the PCP for same today. Reviewed red flags and if patient's symptoms escalate she needs to go into the ED for further workup and treatment. They verbalized understand ing -patient has Tylenol 650 every 8 hours prescribed but has not been taking. Advised to take it as directed every day along with her Lyrica while she is having pain. advised ice / wrapped in a towel alternatin g w/ gentle heat q 3-4H w/a to affected areas She denies history of peptic ulcer disease GI bleeding, CKD and she is not anticoagul ated. Discussed with her and her daughter who is translatin g the risk benefits of ketorolac and advised if her labs are okay(I have no recent chemistrie s or H&H) we could offer a one-time dose for pain relief, but would avoid daily repeated doses at her age, due to risk of ОЛЕГ or GI bleed with repeated doses-chem istries reveal no acute anemia and no acute CKD. 15 mg of ketorolac ordered and administer ed Health Concerns Section Related Observation LastModified by Organization Detai ls LastModified Time None Recorded Concern Status LastModified by Organization Details LastModified Time None Recorded Advance Directives Directive None Recorded Payers Encounter Date Sequence Insurance Name Policy Number Policy Wong Covered Member ID Wong Member ID Guarantor Name 09/23/2021 1 [facility] - DOS PRIOR TO 2022 - DUAL ELIGIBLE (MEDICARE REPLACEMENT/AD VANTAGE - HMO) Mercedes Og [id number] Mercedes Og 01/12/2024 1 [facility] - DOS ON OR AFTER 2022 - DUAL ELIGIBLE - SENIOR LIVING OPTIONS AND ONE CARE (MEDICARE REPLACEMENT/AD VANTAGE - HMO) Mercedes Og [id number] Mercedes Og 01/19/2024 1 [facility] - DOS ON OR AFTER 2022 - DUAL ELIGIBLE - SENIOR LIVING OPTIONS AND ONE CARE (MEDICARE REPLACEMENT/AD VANTAGE - HMO) Mercedes Og [id number] Mercedes Og Notes Date Note Type Note Provider Name and Address Organization Details Recorded Time 09/23/2021 text/html HPI: NKA Pt Hx of hypertension and DM, Hx of TIA now with complaints of: Pt reports dizziness, loss of appetite, ankle/foot edema, nasal congestion. Neg for Covid 09/21 .................. .................. .................. .................. .................. .................. .................. ............... Mirror Polisher Note: Sent to evaluate pt with poly [...] normal output. Rapid covid test negative. Consulted [facility] who recommended that pt leave legs elevated when pt is at rest and this medic assisted by placing pillow under legs. [facility] recommends pt take APAP TID while symptomatic. Pt stated to [facility] that her symptoms have been slowly improving. [facility] will assist pt with getting urgent visit with PCP, as pt would rather not go to ER. Went over red flags and no further questions or concerns at this time. .................. .................. .................. .................. .................. .................. .................. ............... Disposition: Fulfilled Yoandy Bates MD [address] [place] [address],[address], [place], [phone], [employer] 09/23/2021 18:57:08 01/12/2024 text/html HPI: Pt was [...] of breath. Reviewed HPI- no further info needed.Hpattannalisa RN .................. .................. .................. .................. .................. .................. .................. ............... Mirror Polisher Note From Son Yusuf: Pt co rash [...] .................. ............... Disposition: Fulfilled MARBIN GREER MD [address] [place] [address],[address], [place], [address], [employer] 01/12/2024 19:09:36 01/19/2024 text/html HPI: Member's daughter/ [...] be present to translate as Mercedes is Japanese speaking. .................. .................. .................. .................. .................. .................. .................. ............... [facility] Nurse Triage Notes (Maday Lindsey): Chief Complaints: Pain PMH: Hypertension, Diabetes, COPD/Asthma Comments: Reviewed HPI- no further info needed.Hpatterson RNPlease review allergies w/ member/unknown. Mirror Polisher Organization Information for [employer] Name: [employer] ? Address: [address] [place] [address], Explosive Ordnance Manager: Tye MACIAS No.: [id number] Mirror Polisher POC Test Results from [facility] - [facility] Blood Glucose Measurement (14:40:43) Blood Glucose: 115 mg/dL iSTAT Chem8+ (15:14:18) Na: 140 mEq/L K: 3.7 mEq/L Cl: 99 mEq/L iCa: 1.16 mmol/L TCO2: 28 mmol/L Glu: 116 mg/dL BUN: 11 mg/dL Crea: 0.6 mg/dL Hct: 43 % Hb: 14.6 g/dL A .................. .................. .................. .................. .................. .................. .................. ............... Mirror Polisher Note From Escobar Billings: Pt found in residence lying supine on couch legs slightly elevated with pillow, CAOX4 Japanese speaking only. Pt daughter on scene able [...] pain, pedal pulses found, no numbness noted. [facility] contacted and Providers directed to assess pt legs for DVT, no findings noted. VCM directed providers to perform Daniel test for DVT, C directing providers on how to perform. Test result negative. C advised providers to alert pt of possibility of blood clot that is undetected at this time, C sending note to PCP to assess pt legs with ultrasound. [facility] directed providers to give 1G tylenol PO and to draw labs assessing for kidney function. Labs drawn and provided to [facility], [facility] directing 15 mg Toradol to be administered IM for one time pain dose. Provider went over red flags with pt and directed pt to take home prescribed tylenol as directed per direction of [facility]. Providers alerted pt and daughter to call 911 and be transported to the hospital for any change in leg condition, including cold ble legs or severe localized pain in legs. Providers then left scene. [facility] Lab Orders: glucose, fingerstick, blood: Performed .................. [...] She has taken Lyrica and topical salve. Shkaira Whitmore MD [address] [facility],[address], [place], [address], [email or web address] 01/19/2024 23:29:46 OBGyn Episode No OBEpisode recorded.
== END 2024-05-22 09:54 | disposition home or self-care (01) ==
PROVIDERS: Visit Provider Student in an Organized Health Care Education/Training Program
DX: M17.0 Bilateral primary osteoarthritis of knee (principal)
CPT/HCPCS: 20610; 99213

== ENCOUNTER → 2024-05-22 08:52 | Outpatient (BNVA) | payer OTHER, SELFPAY | PROVIDERS: Visit Provider Student in an Organized Health Care Education/Training Program | DX: M15.9 Polyosteoarthritis, unspecified (principal); M17.0 Bilateral primary osteoarthritis of knee | CPT/HCPCS: 20610; 99212; J7323 ==

== ENCOUNTER 2024-05-29 13:20 | Outpatient (AMB) | payer OTHER, SELFPAY ==
--- NOTE | 2024-05-29 13:31 | MHC.OFFVIS ---
Vital Signs 05/29/24 13:36 Height 5 ft 2 in Weight 164 lb 7.437 oz BMI 30.1 BP 130/72 Blood Pressure Location Rt brachial Position Sitting Respiration 16 Pulse 86 Pulse Source Pulse Oximeter Pulse Oximetry (%) 97 Oxygen Delivery Method Room Air Intake Visit Reasons: OA Intake Note: Patient presents for OA. Fuel Management Handler Required: Yes Fuel Management Handler Language: Lead Process Engineer Services: Fuel Management Handler Offered & Declined Fuel Management Handler Name: Ange Cohen Talkback Host: Talkback Host Present (Ange Cohen) Accompanied by: Daughter Allergies No Known Allergies [No Known Allergies*] Allergy (Verified 05/29/24 13:35) Medication List - Last Reconciled 05/29/24 by Nevin López MD acetaminophen (Tylenol Extra Strength) 500 mg PO QID PRN acetaminophen ER (Mapap Arthritis Pain) 650 mg PO Q12H PRN albuterol sulfate 2.5 mg (3 mL) inhalation TID 30 days albuterol sulfate 90 mcg/actuation (Ventolin HFA) 0 mcg inhalation alcohol swabs (Alcohol Prep Pads) 1 pad topical QID 0 days amlodipine 5 mg PO DAILY aspirin 81 mg PO DAILY blood sugar diagnostic (FreeStyle Lite Strips) test three times a day calcium carbonate 600 mg PO BID 30 days calcium polycarbophil (Fiber-Lax) 1,250 mg (2 x 625 mg) PO BID codeine-guaifenesin 10-100 mg/5 mL 5 mL PO Q6H PRN dulaglutide 1.5 mg (0.5 mL) subcut QWEEK 30 days eluxadoline (Viberzi) 75 mg PO BID empagliflozin-metformin 12.5-1,000 mg (Synjardy) 1 tab PO BID famotidine (Pepcid) 40 mg PO .qacsupper fluticasone propionate 220 mcg/actuation (Flovent HFA) 1 puff PO BID 90 days hydrocortisone 1% 1 appl topical BID PRN hydroxyzine HCl 10 mg PO TID PRN 30 days lancets (FreeStyle Lancets) test three times a day lisinopril 30 mg PO DAILY 90 days loratadine 10 mg PO DAILY 90 days meclizine 25 mg PO BID PRN methylcellulose (laxative) (Citrucel) 1,000 mg (2 x 500 mg) PO DAILY 30 days montelukast 10 mg PO DAILY oxybutynin chloride ER 10 mg PO DAILY 90 days pantoprazole 40 mg PO DAILY 90 days prednisone 40 mg (2 x 20 mg) PO DAILY 5 days pregabalin (Lyrica) 100 mg PO BID 90 days simethicone 180 mg PO TID trazodone 25 mg PO BEDTIME PRN venlafaxine ER 37.5 mg PO DAILY HPI Comments Details: Patient is a 73-year-old female with GERD, IBS with diarrhea, 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 At that time patient was complaining of polyarticular joint pain secondary to osteoarthritis. She had failed intra-articular steroids in the past tolerated her 1st Euflexxa injection and today she is here for her 2nd dose No new complaints Rheumatologic History: Polyarthralgias secondary to osteoarthritis Current Rheumatology Medication(s): Pregabalin 100mg bid Topical diclofenac qid [facility], [facility] Medical History (Updated 04/18/24 @ 15:32 by Nevin López MD) Polyarticular osteoarthritis Bilateral primary osteoarthritis of knee Bilateral hand pain Epigastric pain Urinary incontinence Asthma Abnormal CT scan Colon cancer screening Pre-op examination Urinary urgency Urinary frequency Cervicalgia Fall Polyarthralgia Mild recurrent major depression Lab test positive for detection of COVID-19 virus Diabetes mellitus Abdominal bloating COVID-19 vaccine series completed Lumbar spondylosis Cervical spondylitis Muscle weakness Dyslipidemia Elevated CPK Osteopenia Diabetic 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 associated with type 2 diabetes mellitus terminal operator (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 Diabetes type 2, controlled Urge urinary incontinence Moderate asthma Vertigo Polyarthralgia Depression with anxiety Essential hypertension Surgical History History of surgery on extremity Hx of colonoscopy History of esophagogastroduodenoscopy (EGD) S/P SHERRY-BSO (total abdominal hysterectomy and bilateral salpingo-oophorectomy) History of tubal ligation Family History Father Hypertension Mother Cancer Sister Breast cancer Social History Household Members: Significant Other Housing: House Alcohol intake: never Patient Tobacco Use Status: Never used Tobacco e-Cigarette/Vaping Use: Never Used Second Hand Smoke Exposure: No service: No Current occupational status: disabled Review of Systems Const Details: Review of Systems Constitutional: Denies fever, chills, weight loss ENT: Denies vision changes, eye pain or eye redness, dental caries, dry mouth GI: Denies nausea, vomiting, diarrhea, abdominal pain, change in BM Pulm: Denies SOB, PALMER, hemoptysis, wheezing Cards: Denies chest pain, palpitations Skin: Denies Raynaud's, rash, nail changes, photosensitivity, TOWERMAN: Denies headaches, weakness, paresthesias, recurrent falls MSK: as per HPI All other systems reviewed and are unremarkable except noted above Physical Exam Vital Signs: Last Vital Signs Pulse 86 05/29/24 13:36 Resp 16 05/29/24 13:36 BP 130/72 05/29/24 13:36 Pulse Ox 97 05/29/24 13:36 Oxygen Delivery Method Room Air 05/29/24 13:36 BMI result Body Mass Index 30.1 Vital signs reviewed. Constitutional: Non-toxic appearing. No acute distress. Well-developed and well-nourished. Skin: Warm and dry. No rashes or lesions noted. Neck: Full and painless range of motion. No cervical lymphadenopathy. Cardio: Regular rate and rhythm. No murmurs, gallops, or rubs. No lower extremity edema. No JVD. Pulmonary: No respiratory distress. No accessory muscle usage. Neuro: Alert and oriented x4. EXTREMITIES: No edema, no calf tenderness, normal peripheral pulses. JOINT EXAM:? Hands: LEFT: Normal pain-free range of motion without tenderness, swelling, increased warmth or erythema over the joints. Able to make a full fist and has a good cardiovascular technologist strength. Wide spread diffuse mild tenderness reported to palpation throughout the hand and over the forearm. RIGHT: Normal pain-free range of motion without tenderness, swelling, increased warmth or erythema over the joint. Able to make a full fist and has a good cardiovascular technologist strength. Flexion deformity 5th DIP. Widespread diffuse mild tenderness reported to palpation throughout the hand over the forearm. Wrists:? Normal pain-free range of motion without tenderness, swelling, increased warmth or erythema. Elbows:Normal pain-free range of motion without tenderness, swelling, increased warmth or erythema. Shoulders:? Has full active range of motion to bilateral shoulders but does note pain at the extreme of the range of motion. Tenderness to palpation of the AC joint bilaterally Knees:?? Full range of motion bilaterally. Bilateral crepitations noted. Trace effusion to the left knee. Right knee without effusion. Tender points: Tenderness to digital palpation at the occiput, trapezius, second rib, lateral epicondyle, knees, greater trochanter and gluteal area bilaterally. Office Procedures AMB Joint Injection/Aspiration Joint Injection/Aspiration Details: Procedure was explained to the patient and consent was obtained. ? The area of interest was identified and confirmed with patient. ?This was subsequently cleaned with chlorhexidine x3. ? The area was then anesthetized using ethyl chloride spray. 2 cc Euflexxa was injected without issue to the right knee. ?Minimal to no bleeding. ?Patient tolerated procedure. Primary Site: right knee Prep: site was prepped using aseptic technique and ethochloride spray was applied Injected: other Approach Used: anterior Procedure: The patient tolerated the procedure well Coding 50398 - Large joint Procedure code (CPT) selection complete AMB Joint Injection/Aspiration Joint Injection/Aspiration Details: Procedure was explained to the patient and consent was obtained. ? The area of interest was identified and confirmed with patient. ?This was subsequently cleaned with chlorhexidine x3. ? The area was then anesthetized using ethyl chloride spray. 2 cc Euflexxa was injected without issue to the left knee. ?Minimal to no bleeding. ?Patient tolerated procedure. Primary Site: left knee Prep: site was prepped using aseptic technique and ethochloride spray was applied Injected: other Approach Used: anterior Procedure: The patient tolerated the procedure well Coding 47589 - Large joint Procedure code (CPT) selection complete Office Meds Euflexxa 10 mg/mL (mw 2.4-3.6 million) intra-articular syringe Performing Provider: Nevin López MD Performing Location: [facility] Rheumatology Administered by: Nevin López MD on 05/29/24 14:19 Dose Route Admin Location Dispensed Lot Number Expiration Date [employer] Therapy Technician 20 mg intra-articular right knee 2 mL [id number] 04/07/25 [address]-6 [employer] Euflexxa 10 mg/mL (mw 2.4-3.6 million) intra-articular syringe Performing Provider: Nevin López MD Performing Location: [facility] Rheumatology Administered by: Nevin López MD on 05/29/24 14:19 Dose Route Admin Location Dispensed Lot Number Expiration Date [facility] Therapy Technician 20 mg intra-articular 2 mL [id number] 04/07/25 [address]-9 [employer] Results Reviewed Results Reviewed: Laboratory Tests 06/08/21 10/13/23 14:36 11:27 ESR 14 C-Reactive Protein 0.26 ANGE Screen NEGATIVE XR Bilateral Hands 08/07/21 FINDINGS: Right Hand: No periarticular osteopenia or active erosions. Mild osteoarthritis of the interphalangeal joints with narrowing and small marginal osteophytes. Carpal joint spaces are preserved. No acute osseous abnormality. Left Hand: No periarticular osteopenia or erosions. Mild osteoarthritis of the interphalangeal joints with narrowing and small marginal osteophytes. Probable remote, healed fracture of the 3rd metacarpal. Moderate osteoarthritis of the triscaphoid articulation. Assessment & Plan Assessment & Plan (1) Polyarticular osteoarthritis: Code(s): M15.9 - Polyosteoarthritis, unspecified Category: Medical Plan: #Bilateral knee PA Patient with polyarticular OA Failed response to corticosteroid injections Recommended topical diclofenac up to 4 times a day S/p Euflexxa x 2nd dose today Discussed that if the above options fail she will need to see ortho for consideration of joint replacement Plan -RTC 1 week for 3rd dose - Continue topical diclofenac Plan I spent 20 minutes reviewing the record and labs, seeing the patient, discussing the treatment plan and documenting in the medical record Orders: Orders AMB Joint Injection/Aspiration Today M17.0 - Bilateral primary osteoarthritis of knee AMB Joint Injection/Aspiration Today M17.0 - Bilateral primary osteoarthritis of knee Medications: New Euflexxa (sodium hyaluronate (viscosup)) 20 mg (2 mL) intra-articular ONCE 2 mL 0RF NS M17.0 - Bilateral primary osteoarthritis of knee Euflexxa (sodium hyaluronate (viscosup)) 20 mg (2 mL) intra-articular ONCE 2 mL 0RF NS M17.0 - Bilateral primary osteoarthritis of knee Coding Level of Care Code Est Pt Level 3 (33540) Diagnoses Polyarticular osteoarthritis M15.9 CPT Codes Coding - 13120 Large joint: 37518 - Large joint ([id number]) Coding - 17992 Large joint: 80856 - Large joint ([id number])
[2024-05-29 13:36] VITALS: BP 130/72; PULSE 86; RESP 16; O2SAT 97; BMI 30.1
--- OUTSIDE RECORDS SUMMARY | 2024-05-29 15:04 | XMS_ITS | Encounter Summary ---
Author Organization [employer] Address [address] [place] [address] Care Team Providers Care Shake Packer Name Role Phone Abelino Montenegro MD Primary Care Provide r Reason for Visit * Reason Comments Med Refill Encounter Details Date Type Department Care Team ([facility] st Contact Info) Description 01/17/2024 Refill [facility] [address] [place], [place] [phone] Abelino Montenegro MD [address] [place] [address] Social History Tobacco Use Types Packs/Day Years Used Date Smoking Tobacco: Never Passive Smoke Exposure: Never Smokeless Tobacco: Never Alcohol Use Standard Drinks/Week Comments Never 0 (1 standard drink = 0.6 oz pur e alcohol) Depression Answer Date Recorded Patient Health Questionnaire-9 Score 4 11/03/2023 Patient Health Questionnaire-9 Score 4 11/03/2023 Last PHQ-9: Questionnaire Data Not on file 0 11/03/2023 Housing Stability Answer Date Recorded What is your housing situation today? I have felice kiser 11/03/[address] you li ve. Do you have problems with any of the following? None of the above 11/03/2023 Food Insecurity Answer Date Recorded Within the past 12 months, y ou worried that your food would run out before you got money to buy more: Never True 11/03/2023 Within the past 12 months,th e food you bought just didn't last and you didn't have enough money to get more: Never True Transportation Answer Date Recorded In the past 12 months, has l ack of transportation kept you from medical appts, meetings, work or from getting things needed for daily living? Yes, it has kept me from medical appointments or getting medications. 11/03/2023 Utilities Answer Date Recorded In the past 12 months, has t he electric, gas, oil or water company threatened to shut off services in your home? No 11/03/2023 Depression Answer Date Recorded Patient Health Questionnaire-2 Score 2 11/03/2023 Internet Access Answer Date Recorded Internet Access Q1 Yes 01/09/2024 Internet Access Q2 Not on file 01/09/2024 Comments Unknown Sex and Gender Information Value Date Recorded Sex Assigned at Female 03/08/2022 10:15 AM EDT Legal Sex Female 10:15 AM EDT Gender Identity Female 03/08/2022 10:15 AM EDT Sexual Orientation Don't know 03/08/2022 10 :15 AM EDT documented as of this encounter Plan of Treatment Not on file documented as of this encounter Visit Diagnoses Not on filedocumented in this encounter Additional Health Concerns Assessment Noted Time PHQ-9 Depression Total Score: 4 11/03/19 24 1:09 PM EDT documented as of this encounter Care Teams Shake Packer Relationship Specialty Start Date End Date Abelino Montenegro MD [address] [place] [id number] PCP - General Internal Medicine 03/10/21 documented as of this encounter
--- OUTSIDE RECORDS SUMMARY | 2024-05-29 15:04 | XMS_ITS | Encounter Summary ---
Author Organization [employer] Address [address] [facility] [address] [place] [address] Care Team Providers Care Agricultural Plow Operator Name Role Phone Abelino Montenegro MD Primary Care Provide r Reason for Visit * Reason Comments Med Refill Encounter Details Date Type Department Care Team ([facility] st Contact Info) Description 11/01/2023 Refill [facility] MED[facility]INE [address] [place] [address] Abelino Montenegro MD [address] [place] [address] Mild intermittent asthma without complication; Type 2 diabetes mellitus without complication, without long-term current use of insulin ([facility]); Benign hypertension Social History Tobacco Use Types Packs/Day Years [...] Recorded Patient Health Questionnaire-2 Score 2 11/03/2023 Comments Unknown Sex and Gender Information Value Date Recorded Sex Assigned at Female 03/08/2022 10:15 AM EDT Legal Sex Female 10:15 AM EDT Gender Identity Female 03/08/2022 10:15 AM EDT Sexual Orientation Don't know 03/08/2022 10 :15 AM EDT documented as of this encounter Plan of Treatment Not on file documented as of this encounter Visit Diagnoses Diagnosis Mild intermittent asthma without complication Type 2 diabetes mellitus without complication, without long-term current use of insulin ([facility]) Benign hypertension Essential hypertension, benign documented in this encounter Additional Health Concerns Assessment Noted Time PHQ-9 Depression Total Score: 0 09/02/19 23 11:43 AM EDT documented as of this encounter Care Teams Agricultural Plow Operator Relationship Specialty Start Date End Date Abelino Montenegro MD [address] [place] [address] PCP - General Internal Medicine 03/10/21 documented as of this encounter
--- OUTSIDE RECORDS SUMMARY | 2024-05-29 15:04 | XMS_ITS | Encounter Summary ---
Author Organization [employer] Address [address] [facility] [address] [place] [address] Care Team Providers Care Bottle Label Inspector Name Role Phone Abelino Montenegro MD Primary Care Provide r Encounter Details Date Type Department Care Team (Latest Contact Info) Description 05/15/2024 Travel Social History Tobacco Use Types Packs/Day Years [...] documented as of this encounter Care Teams Bottle Label Inspector Relationship Specialty Start Date End Date Abelino Montenegro MD [address] [place] [id number] PCP - General Internal Medicine 03/10/21 documented as of this encounter
--- OUTSIDE RECORDS SUMMARY | 2024-05-29 15:04 | XMS_ITS | Encounter Summary ---
Author Organization [employer] Address [address] [facility] [address] [place] [address] Care Team Providers Care Bullet Swaging Machine Adjuster Name Role Phone Abelino Montenegro MD Primary Care Provide r Reason for Visit * Reason Comments Med Refill Encounter Details Date Type Department Care Team ([facility] st Contact Info) Description 10/25/2023 Refill [facility] MEDICINE [address] [place] [address] Debbie Jaime MD [address] [place] [address] Gastroesophageal reflux disease without esophagitis Social History Tobacco Use Types Packs/Day Years Used Date Smoking Tobacco: Never Passive Smoke Exposure: Never Smokeless Tobacco: Never Alcohol Use Standard Drinks/Week Comments Never 0 (1 standard drink = 0.6 oz pur e alcohol) Depression Answer Date Recorded Patient Health Questionnaire-9 Score 0 09/01/2022 Housing Stability Answer Date Recorded What is your housing situation today? I have felice kiser 02/21/[address] you li ve. Do you have problems with any of the following? None of the above 02/21/2023 Food Insecurity Answer Date Recorded Within the past 12 months, y ou worried that your food would run out before you got money to buy more: Never True 02/21/2023 Within the past 12 months,th e food you bought just didn't last and you didn't have enough money to get more: Never True Transportation Answer Date Recorded In the past 12 months, has l ack of transportation kept you from medical appts, meetings, work or from getting things needed for daily living? No 02/21/2023 Utilities Answer Date Recorded In the past 12 months, has t he electric, gas, oil or water company threatened to shut off services in your home? No 02/21/2023 Depression Answer Date Recorded Patient Health Questionnaire-2 Score 0 09/01/2022 Comments Unknown Sex and Gender Information Value Date Recorded Sex Assigned at Female 03/08/2022 10:15 AM EDT Legal Sex Female 10:15 AM EDT Gender Identity Female 03/08/2022 10:15 AM EDT Sexual Orientation Don't know 03/08/2022 10 :15 AM EDT documented as of this encounter Plan of Treatment Not on file documented as of this encounter Visit Diagnoses Diagnosis Gastroesophageal reflux disease without esophagitis Esophageal reflux documented in this encounter Additional Health Concerns Assessment Noted Time PHQ-9 Depression Total Score: 0 09/02/19 23 11:43 AM EDT documented as of this encounter Care Teams Bullet Swaging Machine Adjuster Relationship Specialty Start Date End Date Abelino Montenegro MD [address] [place] [id number] PCP - General Internal Medicine 03/10/21 documented as of this encounter
--- OUTSIDE RECORDS SUMMARY | 2024-05-29 15:04 | XMS_ITS | Encounter Summary ---
Author Organization [employer] Address [address] [facility] [address] [place] [address] Care Team Providers Care Nuclear Medicine Specialist Name Role Phone Abelino Montenegro MD Primary Care Provide r Reason for Visit * Reason Comments Med Refill Encounter Details Date Type Department Care Team ([facility] st Contact Info) Description 09/17/2023 Refill [facility] MED & PEDS [address] [place], [place] [phone] Abelino Montenegro MD [address] [place] [address] Social History Tobacco Use Types Packs/Day Years [...] documented as of this encounter Care Teams Nuclear Medicine Specialist Relationship Specialty Start Date End Date Abelino Montenegro MD [address] [place] [phone] PCP - General Internal Medicine 03/10/21 documented as of this encounter
--- OUTSIDE RECORDS SUMMARY | 2024-05-29 15:04 | XMS_ITS | Encounter Summary ---
Author Organization [employer] Address [address] [facility] [address] [place] [address] Care Team Providers Care Patrol Officer Name Role Phone Abelino Montenegro MD Primary Care Provide r Reason for Visit * Reason Onset Date Comments Chart Prep 05/03/2024 Encounter Details Date Type Department Care Team ([facility] st Contact Info) Description 05/03/2024 Telephone [facility] [address] [place] [address] Abelino Montenegro MD [address] [place] [address] Chart Prep Social History Tobacco Use Types Packs/Day Years [...] AM EDT documented as of this encounter Miscellaneous Notes * Telephone Encounter - Shadia Wheatley [place] - 05/03/2024 2:57 PM EST Chart Prep Labs: done Images: done Vaccines due: Hep A Due, Hep B Due, and RSV in Pharmacy Due Referrals: Not Applicable Screenings: Eye Exam and Foot Exam Overdue care gaps: A1C, Glucose, and Sbirt Chart prep for upcoming appt with Dr.Esparza blum. LB documented in this encounter Plan of Treatment Not on file documented as of this encounter Visit Diagnoses Not on filedocumented in this encounter Additional Health Concerns Assessment Noted Time PHQ-9 Depression Total Score: 4 11/03/19 24 1:09 PM EDT documented as of this encounter Care Teams Patrol Officer Relationship Specialty Start Date End Date Abelino Montenegro MD [address] [place] [address] PCP - General Internal Medicine 03/10/21 documented as of this encounter
--- OUTSIDE RECORDS SUMMARY | 2024-05-29 15:04 | XMS_ITS | Clinical Summary ---
Author Organization [employer] Address [address] [facility] [address] [place] [address] Care Team Providers Care Retreader Name Role Phone Abelino Montenegro MD Primary Care Provide r Allergies No known active allergies Medications sucralfate (Carafate) 1 g tablet Take 2 g by mouth in the morning. 06/10/19 23 Active traZODone (Desyrel) 50 MG tablet TAKE 1 TABLET BY MOUTH AT BEDTIME FOR INSOMNIA 06/30/19 23 Active venlafaxine XR (Effexor XR) 37.5 MG 24 hr capsule TAKE 1 CAPSULE BY MOUTH ONCE A DAY FOR SYMPTOMS OF DEPRESSION/ANXIETY . 07/15/19 23 Active traMADol (Ultram) 50 MG tabletIndication s:Acute midline low back pain without sciatica Take 1 tablet (50 mg) by mouth every 12 (twelve) hours if needed for severe pain. 30 tablet 02/23/20 23 Active cyclobenzaprine (Flexeril) 10 MG tablet TAKE 1 TABLET BY MOUTH EVERY 8 HOURS IF NEEDED FOR MUSCLE SPASMS 45 tablet 03/23/20 23 Active simethicone (Simethicone Ultra Strength) 180 MG capsule TAKE 1 CAPSULE BY MOUTH THREE TIMES A DAY 90 capsule 03/23/20 23 Active meclizine (Antivert) 25 MG tablet TAKE 1 TABLET BY ORAL ROUTE 2 TIMES EVERY DAY NEEDED FOR DIZZINESS 30 tablet 05/25/19 24 Active amLODIPine (Norvasc) 5 MG tabletIndication s:Essential hypertension TAKE ONE TABLET BY MOUTH EVERY MORNING ^1R1 30 tablet 11 05/25/19 24 Active montelukast (Singulair) 10 MG tabletIndication s:Seasonal allergies TAKE ONE TABLET BY MOUTH AT BEDTIME ^1R4 30 tablet 05/25/19 24 Active Alcohol Swabs (Alcohol Prep) 70 % pads USE FOUR TIMES A DAY 100 each 09/29/19 24 Active empagliflozin-me tFORMIN (Synjardy) 12.5-1000 MGIndications:Ty pe 2 diabetes mellitus without complication, with long-term current use of insulin (CMS/HCC) TOME 1 TABLETA POR VIA ORAL DOS VECES AL FREDIS 60 tablet 6 10/17/19 24 Active Diclofenac Sodium 1 % gelIndications:A cute midline low back pain without sciatica APPLY TO BACK TWICE DAILY 100 g 1 10/25/19 24 Active lidocaine (Lidoderm) 5 % patch APPLY 1 PATCH TOPICALLY LEAVE ON FOR UP TO 12 HOURS 30 patch 11/03/19 24 Active FreeStyle lancetsIndicatio ns:Type 2 diabetes mellitus without complication, without long-term current use of insulin (CMS/HCC) 1 each by Other route every 12 (twelve) hours. 100 each 11/03/19 24 Active albuterol (Ventolin HFA) 108 (90 Base) MCG/ACT inhalerIndicatio ns:Mild intermittent asthma without complication INHALE 2 PUFFS BY MOUTH FOUR TIMES A DAY (BULK) 18 g 11/09/19 24 Active insulin pen needle (B-D ULTRAFINE III SHORT PEN) 31G X 8 mm misc USE DIRECTED FOUR TIMES A DAY (BULK) 100 each 11/09/19 24 Active aspirin (Aspirin Low Dose) 81 MG EC tabletIndication s:Type 2 diabetes mellitus without complication, without long-term current use of insulin (CMS/HCC) TAKE ONE TABLET BY MOUTH EVERY DAY 30 tablet 11/24/19 24 Active lisinopril 30 MG tabletIndication s:Benign hypertension TAKE ONE TABLET BY MOUTH EVERY MORNING 30 tablet 11/24/19 24 Active LORazepam (Ativan) 1 MG tablet TAKE ONE TABLET ONE HOUR BEFORE THE PROCEDURE. 07/06/19 24 Active oxybutynin XL (Ditropan-XL) 10 MG 24 hr tablet TAKE 1 TABLET BY MOUTH EVERYDAY AT NOON Active diphenhydrAMINE (BENADryl) 25 MG tabletIndication s:Urticarial rash Take 1 tablet (25 mg) by mouth every 8 (eight) hours if needed for itching or allergies. 30 tablet 1 11/29/19 24 Active calamine lotion Apply topically if needed for itching. 118 mL 11/29/19 24 Active Viberzi 75 MG tablet 08/22/19 24 Active Trulicity 1.5 MG/0.5ML solution pen-injector INJECT 0.5ML SUBCUTANEOUSLY ONCE WEEKLY IN THE ABDOMEN, THIGH, OR UPPER ARM; ROTATING INJECTION SITES (BULK) 2 mL 3 12/08/19 24 Active fluticasone (Flovent) 220 MCG/ACT inhalerIndicatio ns:Mild intermittent asthma without complication INHALE 1 PUFF IN THE MORNING AND AT BEDTIME (BULK) 12 g 11 12/13/19 24 Active acetaminophen (Tylenol 8 Hour) 650 MG ER tablet TAKE ONE TABLET BY MOUTH EVERY 8 HOURS NEEDED FOR PAIN (VIAL) 60 tablet 1 01/05/20 24 Active albuterol (2.5 MG/3ML) 0.083% nebulizer solutionIndicati ons:Mild intermittent asthma without complication INHALE 1 VIAL VIA NEBULIZER THREE TIMES A DAY (BULK) 75 mL 3 01/12/20 24 Active diphenoxylate-at ropine (Lomotil) 2.5-0.025 MG tabletIndication s:Diarrhea, unspecified type TAKE 1 TABLET BY MOUTH IF NEEDED IN THE MORNING AND AT BEDTIME FOR DIARRHEA. 10 tablet 02/01/20 24 Active pantoprazole (ProtoNix) 40 MG EC tabletIndication s:Gastroesophage al reflux disease without esophagitis TOME 1 TABLETA POR VIA ORAL TODOS LOS BOYD 90 tablet 02/03/20 24 Active loratadine (Claritin) 10 MG tabletIndication s:Seasonal allergies TOME TIFFANIE TABLETA TODOS LOS BOYD 90 tablet 1 02/09/20 24 Active triamcinolone (Kenalog) 0.1 % creamIndications :Dermatitis Apply topically if needed in the morning and at bedtime (pain and swelling). 45 g 2 02/14/20 24 Active glucose blood (FREESTYLE LITE) test stripIndications :Type 2 diabetes mellitus without complication, without long-term current use of insulin ([facility]),Mild intermittent asthma without complication USE TO TEST BLOOD SUGAR THREE TO FOUR TIMES A DAY (BULK) 100 strip 11 02/14/20 24 Active calcium carbonate 1500 (600 Ca) MG tabletIndication s:Type 2 diabetes mellitus without complication, without long-term current use of insulin ([facility]) TAKE ONE TABLET BY MOUTH TWICE A DAY 60 tablet 5 04/11/20 24 Active pregabalin (Lyrica) 100 MG capsule TAKE ONE CAPSULE BY MOUTH TWICE A DAY 60 capsule 04/11/20 24 Active dextran 70-hypromellose PF (artificial tears) 0.1-0.3 % ophthalmic solutionIndicati ons:Dry eye Administer 1 drop into both eyes if needed in the morning, at noon, and at bedtime for dry eyes. 1 each 3 05/15/19 25 Active guaiFENesin (Robitussin) 100 MG/5ML liquidIndication s:Acute cough Take 10 mL (200 mg) by mouth if needed in the morning, at noon, and at bedtime for cough for up to 10 days. 120 mL 05/15/19 25 025 Active Problems Problem Noted Date Diagnosed Date Forgetfulness 05/15/2024 Assessment & Plan (05/15/2024 12:25 PM EST): Pt's family concerned pt is more forgetful Pt's Mini Mental score 21, mainly because pt was unable to recall 3 objects and substract Plan: will refer to Neurology Acute cough 05/15/2024 Assessment & Plan (05/15/2024 12:55 PM EST): Pt with c/o persistent dry cough that is not going away Exam within normal limits, lungs CTA B Rapid covid and flu: negative Plan: supportive measures, guaifenesin PRN, Plain film of chest Follow up if cough becomes productive or she develops fever, sob or any other symptoms Dermatitis 02/14/2024 Assessment & Plan (02/14/2024 1:32 PM EDT): Pt with newly developed rash posterior left calf Exam suggestive of Eczema Plan: Start Triamcinolone BID Dermatology referral Skin rash 11/29/2023 Assessment & Plan (11/29/2023 3:48 PM EDT): Pt presents with possible allergic rash in legs vs vasculitis ? . No other skin lesions , no oral lesions ,also no findings consistent w angioedema , normal lung exam VS wnl Pt reports to have rash for 2nd time and thinks developed the fisrt time 1 day after received steroid inj ? -advised use of cold surface over skin to help w itching -calamine and benadryl PRN px today -refer to supply chain coordinator to clarify possible triggers -will hold for now on PO steroids w uncertanty if actually steroids caused rash??? -alarm signs and symptoms discussed w pt if not get better may need to consider prednisone but w close monitoring ,also will need to consider vasculitis workup if rash does not improve POST (nonalcoholic steatohepatitis) 01/20/2023 Assessment & Plan (02/14/2024 1:27 PM EDT): Most recent LFTs mildly elevated Abd US ordered Osteoarthritis of hands, bilateral 01/20/2023 Assessment & Plan (11/03/2023 1:07 PM EDT): Under the care of Rheumatology, last seen 10/18/2023 Low back pain without sciatica 01/20/2023 Assessment & Plan (02/14/2024 1:41 PM EDT): Pt here for a follow up Initially seen in the ER for c/o new onset of back pain Pt c/o persistent low back pain with radiation to both lower extremities intensity 12/16 Pt refused PT, has used muscle relaxants and Acetaminophen with a modest response. On previous exam there was evidence of muscle spasm. CT of abdomen done 01/11 in the ER showed degenerative changes of the spine only Last visit I recommended to continue acetaminophen and muscle relaxant, I ordered X-rays lumbar spine and hips that showed: [id number] degenerative changes in the bilateral hips. 2. Mild multilevel lumbar spondylosis. Patient was referred to [facility]. They recommended PT has a follow up with them after an MRI they ordered 05/2023 Showed: Multilevel lumbar spondylosis as described above, most notable at L4-L5 where there is mild spinal canal stenosis. Neural foraminal narrowing is worst and moderate on the left at L4-L5 with disc material abutting the exiting L4 nerve roots bilaterally and L5 nerve roots bilaterally. Evaluated by the [facility] s/p epidural steroid injection Uses Tramadol prn Assessment & Plan (11/03/2023 1:04 PM EDT): Pt here for a follow up Initially seen in the ER for c/o new onset of back pain Pt c/o persistent low back pain with radiation to both lower extremities intensity 8/10 Pt refused PT, has used muscle relaxants and Acetaminophen with a modest response. On previous exam there was evidence of muscle spasm. CT of abdomen done 01/11 in the ER showed degenerative changes of the spine only Last visit I recommended to continue acetaminophen and muscle relaxant, I ordered X-rays lumbar spine and hips that showed: [id number] degenerative changes in the bilateral hips. 2. Mild multilevel lumbar spondylosis. Patient was referred to [facility]. They recommended PT has a follow up with them after an MRI they ordered 05/2023 Showed: Multilevel lumbar spondylosis as described above, most notable at L4-L5 where there is mild spinal canal stenosis. Neural foraminal narrowing is worst and moderate on the left at L4-L5 with disc material abutting the exiting L4 nerve roots bilaterally and L5 nerve roots bilaterally. Evaluated by the [facility] s/p epidural steroid injection Uses Tramadol prn Assessment & Plan (06/30/2023 1:28 PM EST): Pt here for a follow up Initially seen in the ER for c/o new onset of back pain Pt c/o persistent low back pain with radiation to both lower extremities intensity 8/10 Pt refused PT, has used muscle relaxants and Acetaminophen with a modest response. On previous exam there was evidence of muscle spasm. CT of abdomen done 01/11 in the ER showed degenerative changes of the spine only Last visit I recommended to continue acetaminophen and muscle relaxant, I ordered X-rays lumbar spine and hips that showed: [id number] degenerative changes in the bilateral hips. 2. Mild multilevel lumbar spondylosis. Patient was referred to [facility]. They recommended PT has a follow up with them after an MRI they ordered 05/2023 Showed: Multilevel lumbar spondylosis as described above, most notable at L4-L5 where there is mild spinal canal stenosis. Neural foraminal narrowing is worst and moderate on the left at L4-L5 with disc material abutting the exiting L4 nerve roots bilaterally and L5 nerve roots bilaterally. Uses Tramadol prn Assessment & Plan (02/22/2023 10:25 AM EDT): Pt here for a follow up Initially seen in the ER for c/o new onset of back pain Pt c/o persistent low back pain with radiation to both lower extremities intensity 8 Pt refused PT, has used muscle relaxants and Acetaminophen with a modest response. On previous exam there was evidence of muscle spasm. CT of abdomen done 01/11 in the ER showed degenerative changes of the spine only Last visit I recommended to continue acetaminophen and muscle relaxant, I ordered X-rays lumbar spine and hips that showed: [id number] degenerative changes in the bilateral hips. 2. Mild multilevel lumbar spondylosis. Patient was referred to [facility]. Seen 02/02/2023 they recommended PT has a follow up with them tomorrow Uses Tramadol prn Assessment & Plan (01/20/2023 12:39 PM EDT): Pt here for a follow up after she was seen in the ER for c/o new onset of back pain Pt c/o persistent low back pain with radiation to both lower extremities intensity 12/16 Pt refuses PT, has used muscle relaxants and Acetaminophen with a modest response. Today she is walking independently. On exam there is evidence of muscle spasm. CT of abdomen done 01/11 in the ER showed degenerative changes of the spine only Plan: Continue acetaminophen and muscle relaxant, X-ray lumbar spine and hips . Will refer to [facility]. Pt refuses PT I asked her to re consider Follow up with me in 1 month Preventative health care 10/05/2022 Assessment & Plan (02/14/2024 1:38 PM EDT): Mammogram: 07/21/2023 Normal Pap Smear: s/p SHERRY and BSO Colonoscopy: Poor prep 09/03/2021 1 year f/u recommended, was due 08/2022 per GI notes. Pt had Cologuard 08/03/2023 NEGATIVE Assessment & Plan (10/05/2022 10:13 AM EDT): Mammogram: 07/15/2022 Normal Pap Smear: s/p SHERRY and BSO Colonoscopy: Poor prep 09/03/2021 1 year f/u recommended, was due 08/2022 per GI notes. Pt tells me she has been scheduled Stress incontinence of urine 06/29/2022 Assessment & Plan (10/05/2022 10:20 AM EDT): Pt with incontinence, she needs pull ups, wipes and gloves Seen by Urology 08/02/2022 Started on Oxybutynin 10 mg po daily Assessment & Plan (06/29/2022 1:21 PM EST): Pt with incontinence, she needs pull ups, wipes and gloves Will refer to Urology as well for testing Fecal smearing 06/29/2022 Assessment & Plan (06/29/2022 1:22 PM EST): Under the care of GI Type 2 diabetes mellitus without complication Assessment & Plan (05/15/2024 12:13 PM EST): Patient is here for a f/u regarding her diabetes Mellitus Hgb A1c on 05/15/2024: 6.6 DM remains controlled She is on a regimen of: Trulicity 1.5 mg q week, Synjardy 12.09/999 mg po BID She is no longer seeing Endocrinology ( Dr Khalil) he requested we took over her care Last note on record: 06/24/2021 foot check today risk of zero, Opthalmology eval done 01/04/[address] Bello (Opthalmology), Microalbumin 03/11/2021 was 2.6, currently on ASA daily Plan: Continue current regimen Assessment & Plan (02/14/2024 1:34 PM EDT): Patient is here for a f/u regarding her diabetes Mellitus Hgb A1c on 02/14/2024: 6.3 DM remains controlled She is on a regimen of: Trulicity 1.5 mg q week, Synjardy 12.09/999 mg po BID She is no longer seeing Endocrinology ( Dr Khalil) he requested we took over her care Last note on record: 06/24/2021 foot check today risk of zero, Opthalmology eval done 01/04/[address] Bello (Opthalmology), Microalbumin 03/11/2021 was 2.6, currently on ASA daily Plan: Continue current regimen Assessment & Plan (11/03/2023 1:14 PM EDT): Patient here for a f/u regarding her diabetes Mellitus Hgb A1c on 11/03/2023 was: 6.3 controlled She is on a regimen of: Trulicity 1.5 mg q week, Synjardy 12.09/999 mg po BID She is no longer seeing Endocrinology ( Dr Khalil) he requested we took over her care Last note on record: 06/24/2021 foot check today risk of zero, Opthalmology eval done 01/04/[address] Bello (Opthalmology), Microalbumin 03/11/2021 was 2.6, currently on ASA daily Plan: Continue current regimen Assessment & Plan (06/30/2023 1:25 PM EST): Patient here for a f/u regarding her diabetes Mellitus Hgb A1c on 06/30/2023 was: 5.9 controlled She is on a regimen of: Trulicity 1.5 mg q week, Synjardy 12.09/999 mg po BID She is no longer seeing Endocrinology ( Dr Khalil) he requested we took over her care Last note on record: 06/24/2021 foot check today risk of zero, Opthalmology eval done 01/04/[address] Bello (Opthalmology), Microalbumin 03/11/2021 was 2.6, currently on ASA daily Plan: Continue current regimen Assessment & Plan (02/22/2023 10:25 AM EDT): Patient here for a f/u regarding her diabetes Mellitus Hgb A1c on 02/22/2023 was: 5.9 controlled She is on a regimen of: Trulicity 1.5 mg q week, Synjardy 12.09/999 mg po BID She is no longer seeing Endocrinology ( Dr Khalil) he requested we took over her care Last note on record: 06/24/2021 foot check today risk of zero, Opthalmology eval done 01/04/[address] Bello (Opthalmology), Microalbumin 03/11/2021 was 2.6, currently on ASA daily Plan: Continue current regimen Assessment & Plan (10/05/2022 10:13 AM EDT): Patient here for a f/u regarding her diabetes Mellitus Hgb A1c on 10/05/2022 was: 6.1 She is on a regimen of: Trulicity 1.5 mg q week, Synjardy 12.09/999 mg po BID She is no longer seeing Endocrinology ( Dr Khalil) he requested we took over her care Last note on record: 06/24/2021 foot check today risk of zero, Opthalmology eval done 01/04/[address] Bello (Opthalmology), Microalbumin 03/11/2021 was 2.6, currently on ASA daily Assessment & Plan (06/29/2022 1:11 PM EST): Patient here for a f/u regarding her diabetes Mellitus Hgb A1c on 06/29/2022 was: 6.2 She is on a regimen of: Trulicity 1.5 mg q week, Synjardy 12.09/999 mg po BID She is no longer seeing Endocrinology ( Dr Khalil) he requested we took over her care Last note on record: 06/24/2021 foot check today risk of zero, Opthalmology eval done 01/04/[address] Bello (Opthalmology), Microalbumin 03/11/2021 was 2.6, currently on ASA daily Benign hypertension 10/14/2011 Assessment & Plan (02/14/2024 1:26 PM EDT): Patient is here for a f/u BP currently controlled on a regimen of: Amlodipine 5 mg po daily and Lisinopril 30 mg po daily Given adequate blood pressure control will continue with current medical regimen. Most recent electrolytes, Bun and Creatinine done on: 12/14/2023 were wnl. patient advised to adhere to a low sodium diet, encouraged about medication compliance, counseled about weight loss Assessment & Plan (11/03/2023 1:07 PM EDT): Patient is here for a f/u BP currently controlled on a regimen of: Amlodipine 5 mg po daily and Lisinopril 30 mg po daily Given adequate blood pressure control will continue with current medical regimen. Most recent electrolytes, Bun and Creatinine done on: 01/11/2023 were wnl. patient advised to adhere to a low sodium diet, encouraged about medication compliance, counseled about weight loss Assessment & Plan (06/30/2023 1:24 PM EST): Patient is here for a f/u BP currently controlled on a regimen of: Amlodipine 5 mg po daily and Lisinopril 30 mg po daily Given adequate blood pressure control will continue with current medical regimen. Most recent electrolytes, Bun and Creatinine done on: 01/11/2023 were wnl. patient advised to adhere to a low sodium diet, encouraged about medication compliance, counseled about weight loss Assessment & Plan (10/05/2022 10:01 AM EDT): Patient is here for a f/u BP currently controlled on a regimen of: Amlodipine 5 mg po daily and Lisinopril 30 mg po daily Given adequate blood pressure control will continue with current medical regimen. Most recent electrolytes, Bun and Creatinine done on: 08/19/2022 were wnl. patient advised to adhere to a low sodium diet, encouraged about medication compliance, counseled about weight loss Assessment & Plan (06/29/2022 12:56 PM EST): Here for a f/u currently controlled on a regimen of: Amlodipine 5 mg po daily and Lisinopril 30 mg po daily Given adequate blood pressure control will continue with current medical regimen. Most recent electrolytes, Bun and Creatinine done on: 09/27/2021 were wnl. Will repeat patient advised to adhere to a low sodium diet, encouraged about medication compliance, counseled about weight loss Anemia 05/09/1958 Asthma 05[birth year]09/1958 Depressive disorder 05/09/1958 Gastroesophageal reflux disease 05/09/1958 Assessment & Plan (06/30/2023 1:24 PM EST): Recent CT Showed abnormal appearance of the stomach. There is wall thickening and edema of the distal stomach. There is abnormal soft tissue superior to the greater curvature of the distal stomach. Appearance is worrisome for gastritis or ulcer disease. Mass cannot be excluded. GI consultation recommended. She is s/p EGD 04/04/2023, Pathology was unremarkable Assessment & Plan (01/20/2023 11:50 AM EDT): Recent CT Showed abnormal appearance of the stomach. There is wall thickening and edema of the distal stomach. There is abnormal soft tissue superior to the greater curvature of the distal stomach. Appearance is worrisome for gastritis or ulcer disease. Mass cannot be excluded. GI consultation recommended. Pt tells me she was already seen and is scheduled for EGD 04/04/2023 Hypercholesterolemia 05/09/1958 Assessment & Plan (10/05/2022 10:03 AM EDT): Here for a f/u Patient with elevated lipids. Most recent lipid profile from: 04/13/2022 shows a total cholesterol of: 138 triglycerides of: 72 HDL of: 56 and LDL of: 67 Currently not on a regimen due to previously elevated LFT'S (pt had been on Zocor in the past) . Lipids at target, for now will continue with diet advised to try to adhere to a low cholesterol diet, counseled and educated about diet and exercise, Patient encouraged to come up with a personal goal for weight loss. Assessment & Plan (06/29/2022 12:56 PM EST): Here for a f/u Patient with elevated lipids. Most recent lipid profile from: 03/10/2021 shows a total cholesterol of: 152 triglycerides of: 119 HDL of: 43 and LDL of: 87 Currently not on a regimen due to previously elevated LFT'S (pt had been on Zocor in the past) . For now will continue with diet, Repeat Lipid Profile advised to try to adhere to a low cholesterol diet, counseled and educated about diet and exercise, Patient encouraged to come up with a personal goal for weight loss. Osteopenia 05/09/1958 Resolved Problems Problem Noted Date Diagnosed Date Resolved Date Left lower quadrant abdominal pain 06/29/2022 09/01/2022 Assessment & Plan (06/29/2022 12:58 PM EST): Pt with previous c/o lower abdominal pain, left > right x 3 weeks , intensity 8/10. On exam there is tenderness to palpation Etiology ? Diverticulitis ? CT of abdomen and Pelvis with contrast done 04/2022 showed:No acute findings of the abdomen or pelvis. Colonic diverticulosis without diverticulitis. Mild diffuse colonic stool burden. Encounters Date Type Department Care Team Description 05/17/2024 Telephone [facility] [address] [facility] [place] [address] Abelino Montenegro MD 05/15/2024 11:30 AM EST Office Visit [facility] [address] [facility] [place] [address] Abelino Montenegro MD Forgetfulness (Primary Dx); Type 2 diabetes mellitus without complication, without long-term current use of insulin ([facility]); Dry eye; Acute cough 05/15/2024 Travel 05/03/2024 Telephone [facility] [address] [facility] [place] [address] Abelino Montenegro MD Chart Prep 04/27/2024 Telephone [facility] [address] [place] [address] Abelino Montenegro MD Appointment Request 04/11/2024 Refill [facility] [address] [facility] [place] [address] Abelino Montenegro MD Type 2 diabetes mellitus without complication, without long-term current use of insulin ([facility]) from Last 3 Months Immunizations Name Administration Dates Next Due Influenza High-dose Quadriva lent Preservative Free 02/26/2022,03/10/2021 Influenza Quadrivalent Adjuvanted 01/13/2023, Influenza injectable quadriv alent IIV4 with preservative 03/24/2016 Influenza, High Dose Seasona l, Preservative Free 02/14/2024,01/09/2019,01/14/2017 Influenza, IIV3, injectable 05/30/2015 Influenza, Split (incl. anibal fied surface antigen) 01/31/2013,01/06/2012 Influenza, seasonal, injecta ble, preservative free 05/14/2014 Influenza, trivalent, adjuvanted 04/05/2018 MMR 11/28/1997 Moderna Covid-19 Vaccine 12+ 08/22/2020,07/26/19 21,06/27/2020 Pfizer Covid-19 Vaccine 12+ 02/14/2024,1 ,10/27/2021,03/24 Pfizer Covid-19 Vaccine 12+ luis-sucrose (Nichols Cap) 10/27/2021 Pneumococcal Conjugate PCV 20 03/22/2022 Pneumococcal Polysaccharide PPSV23 04/18/2019,,08/09/2006 TD (adult), 2 Lf tetanus tox oid, preservative free, adsorbed 08/09/2006 Tdap 10/04/2020 Zoster, Recombinant 06/15/2021,03/31/2021 Social History Tobacco Use Types Packs/Day Years Used Date Smoking Tobacco: Never Passive Smoke Exposure: Never Smokeless Tobacco: Never Tobacco Cessation:Counseling Given: Not Answered Alcohol Use Standard Drinks/Week Comments Never 0 (1 standard drink = 0.6 oz pur e alcohol) Depression Answer Date Recorded Patient Health Questionnaire-9 Score 4 11/03/2023 Patient Health Questionnaire-9 Score 4 11/03/2023 Last PHQ-9: Questionnaire Data Not on file 0 11/03/2023 Housing Stability Answer Date Recorded What is your housing situation today? I have felicemichelle kiser 11/03/[address] you [...] the past 12 months, has t he [employer], [employer], oil or water company threatened to shut [...] Don't know 03/08/2022 10 :15 AM EDT Last Filed Vital Signs Vital Sign Reading Time Taken Comments Blood Pressure 123/72 05/15/2024 11:46 AM EST Pulse 85 05/15/2024 11:46 AM EST Temperature 36.2 ??C (97.1 ??F) 05/15/2024 1 1:46 AM EST Respiratory Rate 20 05/15/2024 11:4 6 AM EST Oxygen Saturation 95% 05/15/2024 11: 46 AM EST Inhaled Oxygen Concentration - - Weight 74.3 kg (163 lb 12.8 oz) 025 11:46 AM EST Height 157.5 cm (5' 2 ) 05/15/2024 11:4 6 AM EST Body Mass Index 29.96 05/15/2024 11:46 AM EST Plan of Treatment Health Maintenance Due Date Last Done Comments CT Colonography 1951 FIT 1950 FOBT 1950 Sigmoidoscopy 1950 Diabetes: Foot Exam 1961 Eye Exam 1961 Hepatitis A Vaccines (1 of 2 - Risk 2-dose series) 1970 Hepatitis B Vaccines (1 of 3 - Risk 3-dose series) 2011 RSV Patients and Patients Aged 60 years or older (1 - Risk 60-74 years 1-dose series) 2011 Diabetes: Urine Protein Screening 03/11/2022 03/11/2021 Lipid Panel 04/13/2023 04/13/2022, 03/11/2021 Mammogram 07/20/2024 07/21/2023, 03/0 01/2023, 07/13/2021 Depression Screening 11/02/2024 11/03/2023, 11/03/19 24 SDOH Screening 11/02/2024 11/03/2023 Diabetes: Hemoglobin A1C 11/12/2024 025, 02/14/2024, 11/03/2023, Additional history exists Alcohol/Substance Use Screening 05/15/2025 05/15/2024 Tobacco Screening 05/15/2025 05/15/2024 Colorectal Cancer Screening 07/26/2026 FIT DNA/Cologuard 07/26/2026 07/27/2023, 05/21/2019 DTaP/Tdap/Td Vaccines (2 - Td or Tdap) 10/04/2030 10/04/2020, 08/09/2006 Colonoscopy 09/04/2031 09/03/2021 Zoster Vaccines Completed 06/15/2021, 03/31/2021 Pneumococcal Vaccine: 65+ Years Completed 03/22/2022, 04/18/2019, 12/26/2013, Additional history exists COVID-19 Vaccine Completed 02/14/2024, , 10/27/2021, Additional history exists Influenza Vaccine Completed 02/14/2024, , 02/26/2022, Additional history exists Hepatitis C Screening Completed 02/21/2024, 022 HIB Vaccines Aged Out No longer eligi ble based on patient's age to complete this topic HPV Vaccines Aged Out No longer eligi ble based on patient's age to complete this topic IPV Vaccines Aged Out No longer eligi ble based on patient's age to complete this topic Meningococcal Vaccine Aged Out No joseph christy eligible based on patient's age to complete this topic RSV under 20 months Aged Out No longe r eligible based on patient's age to complete this topic Rotavirus Vaccines Aged Out No longer eligible based on patient's age to complete this topic Procedures Procedure Name Priority Date/Time Associated Diagnosis Comments XR CHEST 2 VIEWS Routine 05/15/2024 1:02 PM EST Acute cough POCT RAPID COVID ANTIGEN Routine 05/15/2024 12:48 PM EST Acute cough POCT INFLUENZA B (ID NOW RAPID MOLECULAR) Routine 05/15/2024 12:47 PM EST Acute cough POCT INFLUENZA A (ID NOW RAPID MOLECULAR) Routine 05/15/2024 12:47 PM EST Acute cough POCT GLYCATED HEMOGLOBIN, TOTAL Routine 05/15/2024 12:00 PM EST Type 2 diabetes mellitus without complication, without long-term current use of insulin (CMS/HCC) POCT GLUCOSE Routine 05/15/2024 12:00 PM EST Type 2 diabetes mellitus without complication, without long-term current use of insulin (CMS/HCC) US ABDOMEN COMPLETE Routine 03/05/2024 7 :43 AM EDT POST (nonalcoholic steatohepatitis) HEPATITIS C AB W/REFL TO HCV RNA, QN, PCR Routine 02/21/2024 8:25 AM EDT POST (nonalcoholic steatohepatitis) BI MAMMOGRAM SCREENING TOMOSYNTHESIS BILATERAL Routine 07/21/2023 10:16 AM EDT LIPID PANEL, STANDARD Routine 04/13/2022 8:46 AM EST HM COLONOSCOPY Routine 09/03/2021 8:02 AM EDT ALBUMIN, RANDOM URINE W/CREATININE Routine 03/11/2021 8:33 AM EDT from Last 3 Months or Most Recently Relevant to Health Maintenance Results * XR Chest 2 Views (05/15/2024 1:02 PM EST) Anatomical Region Laterality Modality Chest Radiographic Remedios ging 05/15/2024 1:02 PM EST Narrative 05/15/2024 1:32 PM EST ?[facility] ?[address] ?[place] [address] ?XRay Report ? Signed ? Patient: Vizcarrondo,Mercedes ?MR#: [id number] ?? [id number] ? : 1950 ?Acct:[id number] ? Age/Sex: 74 / F ?ADM Date: 05/15/ ? Loc: HO.HHCX ? Attending Dr: Abelino Maddox MD ? Ordering Physician: Abelino Maddox MD ?? Date of Service: 05/15/24 ?? Procedure(s): XR chest 2V ?? Accession Number(s): [id number] ? cc: Abelino Maddox MD ? EXAMINATION: ??XR CHEST 2 VIEWS ? HISTORY: cough ? COMPARISON: Comparison is made with the prior examination dated ?? 09/11/2023. ? FINDINGS: ??PA and lateral views of the chest are submitted. The lungs ?? are expanded and clear. ??There is no pleural effusion, pneumothorax, or ?? pulmonary vascular congestion. ??The heart is normal in size. The aorta ?? is tortuous. ??There is degenerative disc disease of the spine. ? XR/XR chest 2V ?? IMPRESSION: ?? No acute cardiopulmonary abnormality. ? Electronically signed by: ??Oscar Gimenez MD ??05/15/2024 01:29 PM EST ? Dictated By: ?Oscar Gimenez MD ? Signed By: ?<Electronically signed by Oscar Gimenez MD in OV> ?05/15/24 1329 ? DD/ 1302 ? TD/TT: 05/15/24 1315 ? Canoe Inspector Final: ? Procedure Note Loulou, Image - 05/15/[address] [address] XRay Report Signed Patient: Ronnell Foley#: [id number] : 1950cct:[id number] Age/Sex: 74 / FADM Date: 05/15/24 Loc: HO.HHCX Attending Dr: Abelino Maddox MD Ordering Physician: Abelino Maddox MD Date of Service: 05/15/24 Procedure(s): XR chest 2V Accession Number(s): [id number] cc: Abelino Maddox MD EXAMINATION: XR CHEST 2 VIEWS HISTORY: cough COMPARISON: Comparison is made with the prior examination dated 09/11/2023. FINDINGS: PA and lateral views of the chest are submitted. The lungs are expanded and clear. There is no pleural effusion, pneumothorax, or pulmonary vascular congestion. The heart is normal in size. The aorta is tortuous. There is degenerative disc disease of the spine. XR/XR chest 2V IMPRESSION: No acute cardiopulmonary abnormality. Electronically signed by: Oscar Gimenez MD 05/15/2024 01:29 PM EST Dictated By: Oscar Gimenez MD Signed By: <Electronically signed by Oscar Gimenez MD in OV> 05/15/24 1329 DD/ 1302 TD/TT: 05/15/24 1315 Canoe Inspector Final: Abelino Whitfield MD IMG XR PROCEDURES Fin al Result * POCT Rapid Covid-19 BinaxNOW (05/15/2024 12:48 PM EST) Rapid COVID Ag Negative QC Media Lot # [id number] Lot# Expiration Date Swab 05/15/2024 12:4 8 PM EST Abelino Whitfield MD POINT OF CARE TEST EN TER/EDIT ORDERABLES Final Result * POCT Rapid Influenza B HANSON ID NOW (05/15/2024 12:47 PM EST) Influenza B Negative Negative, Indeterminate [facility] QC Media Lot # [id number] [facility] Lot# Expiration Date [facility] Swab 05/15/2024 12:4 7 PM EST Abelino Whitfield MD POINT OF CARE TEST EN TER/EDIT ORDERABLES Final Result [facility] [address] [place] [phone] * POCT Rapid Influenza A HANSON ID NOW (05/15/2024 12:47 PM EST) Influenza A Negative Negative, Indeterminate [facility] QC Media Lot # [id number] [facility] Lot# Expiration Date [facility] Swab 05/15/2024 12:4 7 PM EST us Abelino Whitfield MD POINT OF CARE TEST EN TER/EDIT ORDERABLES Final Result [facility] [address] [place] [address] [phone] * (ABNORMAL) POCT HGB A1C (05/15/2024 12:00 PM EST) Hemoglobin A1C 6.6(A) 4.0 - 6.0 % QC Media Lot # [id number] Lot# Expiration Date Blood 05/15/2024 12:0 0 PM EST us Abelino Whitfield MD POINT OF CARE TEST EN TER/EDIT ORDERABLES Final Result * POCT Glucose (05/15/2024 12:00 PM EST) Glucose Blood, POC 112 60 - 200 mg/dL QC Media Lot # [id number] Lot# Expiration Date Blood Capillary blood specimen / Unknown 05/15/2024 12:00 PM EST us Abelino Whitfield MD POINT OF CARE TEST EN TER/EDIT ORDERABLES Final Result * US Abdomen Complete (03/05/2024 7:43 AM EDT) Anatomical Region Laterality Modality Abdomen Ultrasound 03/05/2024 7:43 AM EDT Narrative 03/25/2024 6:59 PM EST ? [place] [facility] ?[address] ?[place] [address] ? Ultrasound Report ? Signed ? Patient: Vizcarrondo,Mercedes ?MR#: [id number] ?? [id number] ? : 1950 ?Acct:[id number] ? Age/Sex: 73 / F ?ADM Date: 03/05/24 ? Loc: HO.US ? Attending Dr: Abelino Maddox MD ? Ordering Physician: Abelino Maddox MD ?? Date of Service: 03/05/24 ?? Procedure(s): US abdomen complete ?? Accession Number(s): [id number] ? cc: Abelino Maddox MD ? EXAMINATION: ?? US ABDOMEN COMPLETE ? CLINICAL INFORMATION: ?? Elevated liver function tests. ? COMPARISON: ?? CT abdomen and pelvis 01/11/2023. Limited abdominal ultrasound ?? 07/28/2021. Ultrasound abdomen complete 07/02/2020. ? TECHNIQUE: ?? Real-time imaging of the abdominal viscera. ? FINDINGS: ? PANCREAS: Normal. ? ABDOMINAL AORTA: The proximal, mid, and distal segments are normal in ?? caliber. ? INFERIOR VENA CAVA: Visualized portions are normal. ? LIVER: The liver is normal in size. The liver contour is normal. ?? Increased echogenicity of the liver parenchyma, this can be seen in the ?? setting of hepatic steatosis or liver parenchymal disease. No focal ?? hepatic lesion. There is no intrahepatic biliary duct dilatation seen. ? GALLBLADDER: Normal. The gallbladder is physiologically distended ?? without evidence of stones, sludge, polyps, wall thickening or ?? pericholecystic fluid. ? COMMON BILE DUCT: Normal in caliber measuring 0.5 cm in diameter. ? RIGHT KIDNEY: Normal. No hydronephrosis. No renal calculi or focal ?? parenchymal lesions. The kidney measures 11.8 cm in maximum dimension. ? LEFT KIDNEY: Normal. No hydronephrosis. No renal calculi or focal ?? parenchymal lesions. The kidney measures 12.1 cm in maximum dimension. ? SPLEEN: The spleen measures 9.1 cm in maximum dimension. Echogenic ?? focus probably calcified granuloma 3 mm. ? FREE FLUID: None. ? US/US abdomen complete ?? IMPRESSION: ? 1. ??Increased echogenicity of the liver parenchyma, this can be seen in ?? the setting of hepatic steatosis or liver parenchymal disease. ? 2. ??No ultrasound evidence of intra or extrahepatic biliary dilatation. ? Electronically signed by: ??Amy Hutchinson MD ??03/25/2024 06:56 PM EST ?? RP ? Dictated By: ?Amy Hutchinson MD ? Signed By: ?<Electronically signed by Amy Hutchinson MD in OV> ?03/25/246 ? DD/ 0743 ? TD/TT: 03/05/24 0815 ? Canoe Inspector Final: HS ? Procedure Note Loulou, Anila - 03/25/2024 [place] [address] Ultrasound Report Signed Patient: Ronnell Foley#: [id number] : 1950cct:[id number] Age/Sex: 73 / FADM Date: 03/05/24 Loc: HO.US Attending Dr: Abelino Maddox MD Ordering Physician: Abelino Maddox MD Date of Service: 03/05/24 Procedure(s): US abdomen complete Accession Number(s): [id number] cc: Abelino Maddox MD EXAMINATION: US ABDOMEN COMPLETE CLINICAL INFORMATION: Elevated liver function tests. COMPARISON: CT abdomen and pelvis 01/11/2023. Limited abdominal ultrasound 07/28/2021. Ultrasound abdomen complete 07/02/2020. TECHNIQUE: Real-time imaging of the abdominal viscera. FINDINGS: PANCREAS: Normal. ABDOMINAL AORTA: The proximal, mid, and distal segments are normal in caliber. INFERIOR VENA CAVA: Visualized portions are normal. LIVER: The liver is normal in size. The liver contour is normal. Increased echogenicity of the liver parenchyma, this can be seen in the setting of hepatic steatosis or liver parenchymal disease. No focal hepatic lesion. There is no intrahepatic biliary duct dilatation seen. GALLBLADDER: Normal. The gallbladder is physiologically distended without evidence of stones, sludge, polyps, wall thickening or pericholecystic fluid. COMMON BILE DUCT: Normal in caliber measuring 0.5 cm in diameter. RIGHT KIDNEY: Normal. No hydronephrosis. No renal calculi or focal parenchymal lesions. The kidney measures 11.8 cm in maximum dimension. LEFT KIDNEY: Normal. No hydronephrosis. No renal calculi or focal parenchymal lesions. The kidney measures 12.1 cm in maximum dimension. SPLEEN: The spleen measures 9.1 cm in maximum dimension. Echogenic focus probably calcified granuloma 3 mm. FREE FLUID: None. US/US abdomen complete IMPRESSION: 1. Increased echogenicity of the liver parenchyma, this can be seen in the setting of hepatic steatosis or liver parenchymal disease. 2. No ultrasound evidence of intra or extrahepatic biliary dilatation. Electronically signed by: Amy Hutchinson MD 03/25/2024 06:56 PM EST Dictated By: Amy Hutchinson MD Signed By: <Electronically signed by Amy Hutchinson MD in OV> 03/25/24 1856 DD/ 0743 TD/TT: 03/05/24 0815 Canoe Inspector Final: HS Abelino Whitfield MD IMG US PROCEDURES Kareem jayashree Result - Final * Hepatitis C Antibody with Reflex to HCV, RNA, Quantitative, Real-Time PCR (02/21/2024 8:25 AM EDT) Hepatitis C Antibody Nonreactive Nonreactive [facility] Comment:Antibodies to HCV no t detected; does not exclude early acuteHCV infection. Blood Venous blood specimen / Unknown 02/21/2024 8:25 AM EDT 02/21/2024 11:11 AM EDT Abelino Whitfield MD LAB BLOOD ORDERABLES Final Result [facility] [address] [place] [phone] * BI Mammogram Screening Tomosynthesis Bilateral (07/21/2023 10:16 AM EDT) Anatomical Region Laterality Modality Breast Bilateral Mammography 07/21/2023 10:1 6 AM EDT Narrative 08/11/2023 8:52 AM EDT ? [facility] ? [address] ?[place], [place] [address] ? Mammography Report ? Signed ? Patient: Vizcarrondo,Mercedes ?MR#: [id number] ?? [id number] ? : 1950 ?Acct:[id number] ? Age/Sex: 73 / F ?ADM Date: 07/21/23 ? Loc: HO.MAMMO ? Attending Dr: Abelino Maddox MD ? Ordering Physician: Abelino Maddox MD ?Resu ?? lts: 2Benign Findings ? Date of Service: 07/21/23 ?Follow Up: 1 Year From Orig ?? inal Mammogram ? Procedure(s): MM tomosynthesis screening BI ?? Accession Number(s): [id number] ? cc: Abelino Maddox MD ? EXAMINATION: ?? MM SCREENING DIGITAL BREAST TOMOSYNTHESIS, BILATERAL ? CLINICAL INFORMATION: ? Screening. Asymptomatic. ? COMPARISON: ?? Mammography: 07/15/2022, 07/13/2021, and dating back to 12/15/2012. ? TECHNIQUE: ?? Digital breast tomosynthesis is performed in both the craniocaudal and ?? mediolateral oblique views along with computer-aided detection (CAD). ?? Synthesized 2D images are generated from the tomosynthesis. ??Added ?? full-field left CC view was obtained for skinfold. ? FINDINGS: ?? There are scattered areas of fibroglandular density (ACR BI-RADS breast ?? composition Category b). ? There are bilateral vascular calcifications. There are a few tiny ?? punctate skin calcifications bilaterally. Nodule in the outer right ?? breast is consistent with an intramammary lymph node and unchanged. ?? There are no suspicious masses, suspicious grouped calcifications, or ?? areas of architectural distortion in either breast. The parenchymal ?? pattern is stable from prior exams. No skin or axillary abnormalities. ? MM/MM tomosynthesis screening BI ?? IMPRESSION: ?? No mammographic evidence of malignancy. ? ASSESSMENT: ? BI-RADS BI-RADS 2 - Benign Findings ? RECOMMENDATION: ?? Routine annual mammography screening. ? 1 year F/U ? This examination should not preclude the clinical evaluation of a ?? suspicious palpable abnormality. ? This patient's information was entered into a reminder system with a ?? target due date for their next mammogram. ? Dictated By: ?Costa Moffett MD ? Signed By: ?<Electronically signed by Costa Moffett MD in OV> ?08/11/23 0849 ? DD/ 1016 ? TD/TT: ? Canoe Inspector Final: ? Procedure Note Loulou, Anila - 08/11/2023 [facility] [address] [place] [address] Dr. [place], [place] [address] Mammography Report Signed Patient: Ronnell Foley#: [id number] : 1Acct:[id number] Age/Sex: 73 / FADM Date: 07/21/23 Loc: HO.MAMMO Attending Dr: Abelino Maddox MD Ordering Physician: Abelino Maddox MDResu lts: 2Benign Findings Date of Service: 07/21/23Follow Up: 1 Year From Orig inal Mammogram Procedure(s): MM tomosynthesis screening BI Accession Number(s): [id number] cc: Abelino Maddox MD EXAMINATION: MM SCREENING DIGITAL BREAST TOMOSYNTHESIS, BILATERAL CLINICAL INFORMATION: Screening. Asymptomatic. COMPARISON: Mammography: 07/15/2022, 07/13/2021, and dating back to 12/15/2012. TECHNIQUE: Digital breast tomosynthesis is performed in both the craniocaudal and mediolateral oblique views along with computer-aided detection (CAD). Synthesized 2D images are generated from the tomosynthesis. Added full-field left CC view was obtained for skinfold. FINDINGS: There are scattered areas of fibroglandular density (ACR BI-RADS breast composition Category b). There are bilateral vascular calcifications. There are a few tiny punctate skin calcifications bilaterally. Nodule in the outer right breast is consistent with an intramammary lymph node and unchanged. There are no suspicious masses, suspicious grouped calcifications, or areas of architectural distortion in either breast. The parenchymal pattern is stable from prior exams. No skin or axillary abnormalities. MM/MM tomosynthesis screening BI IMPRESSION: No mammographic evidence of malignancy. ASSESSMENT: BI-RADS BI-RADS 2 - Benign Findings RECOMMENDATION: Routine annual mammography screening. 1 year F/U This examination should not preclude the clinical evaluation of a suspicious palpable abnormality. This patient's information was entered into a reminder system with a target due date for their next mammogram. Dictated By: Costa Moffett MD Signed By: <Electronically signed by Costa Moffett MD in OV> 08/11/23 0849 DD/ 1016 TD/TT: Canoe Inspector Final: us Abelino Whitfield MD IMG BI PROCEDURES Fin al Result * Lipid Panel, Standard (04/13/2022 8:46 AM EST) Cholesterol, Total 138 <200 mg/dL [facility] HDL Cholesterol 56 > OR = 50 mg/dL [facility] Triglycerides 72 <150 mg/dL [facility] LDL Cholesterol 67 mg/dL (calc) [facility] Comment: Reference range: <100 Desirable range <100 mg/dL for primary prevention; ?? <70 mg/dL for patients with CHD or diabetic patients with > or = 2 CHD risk factors. LDL-C is now calculated using the Johnna calculation, which is a validated novel method providing better accuracy than the Friedewald equation in the estimation of LDL-C. Escobar CURTIS et al. CADY. 2013;310(46): 3537-7989 (http://education.[employer]/faq/KVM214) Chol/HDLC Ratio 2.5 <5.0 (calc) [facility] Non-HDL Cholesterol 82 <130 mg/dL (calc) [facility] Comment: For patients with diabetes plus 1 major ASCVD risk factor, treating to a non-HDL-C goal of <100 mg/dL (LDL-C of <70 mg/dL) is considered a therapeutic option. 04/13/2022 8:46 AM EST 04/13/2022 8:47 AM EST Narrative [facility] - 04/13/2022 11:31 PM EST FASTING:YES FASTING: YES Abelino Whitfield MD LAB BLOOD ORDERABLES Final Result [facility] [address], [place] [address] [facility] [place] [facility] [address], [facility] [place] [address] * Hm Colonoscopy (09/03/2021 8:02 AM EDT) Historical Provider HEALTH MAINTENANCE Final Result * ALBUMIN, RANDOM URINE W/CREATININE (03/11/2021 8:33 AM EDT) Microalbumin Urine 2.6 See Note: mg/dL [facility] Comment: Reference Range: ?? Reference Range Not established Microalb/Creat Ratio 22 <30 mcg/mg creat [facility] Comment: ?? The ADA defines abnormalities in albumin excretion as follows: ?? Albuminuria Category ?Result (mcg/mg creatinine) ?? Normal to Mildly increased ?? <30 Moderately increased ? 30-299 ?? Severely increased ? > OR = 300 ?? The ADA recommends that at least two of three specimens collected within a 3-6 month period be abnormal before considering a patient to be within a diagnostic category. Creatinine, Urine 116 20 - 275 mg/dL [facility] 03/11/2021 8:33 AM EDT us Abelino Whitfield MD LAB URINE ORDERABLES Final Result [facility] [address] from Last 3 Months or Most Recently Relevant to Health Maintenance Insurance Care Teams Retreader Relationship Specialty Start Date End Date Abelino Montenegro MD [address] [place] [address] PCP - General Internal Medicine 03/10/21
--- OUTSIDE RECORDS SUMMARY | 2024-05-29 15:04 | XMS_ITS | Encounter Summary ---
Author Organization [email or web address] Address [address] [facility] 7[address] [place] [address] Care Team Providers Care Set Up Machinist Name Role Phone Abelino Montenegro MD Primary Care Provide r Reason for Visit * Reason Comments Med Refill Encounter Details Date Type Department Care Team ([facility] st Contact Info) Description 11/18/2023 Refill [facility] [address] [place] [phone] Abelino Montenegro MD [address] [place] [address] Benign hypertension; Type 2 diabetes mellitus without complication, without long-term current use of insulin ([facility]); Mild intermittent asthma without complication Social History Tobacco Use Types Packs/Day Years [...] as of this encounter Visit Diagnoses Diagnosis Benign hypertension Essential hypertension, benign Type 2 diabetes mellitus without complication, without long-term current use of insulin ([facility]) Mild intermittent asthma without complication documented in this encounter Additional Health Concerns Assessment Noted Time PHQ-9 Depression Total Score: 4 11/03/19 24 1:09 PM EDT documented as of this encounter Care Teams Set Up Machinist Relationship Specialty Start Date End Date Abelino Montenegro MD [address] [place] [address] PCP - General Internal Medicine 03/10/21 documented as of this encounter
--- OUTSIDE RECORDS SUMMARY | 2024-05-29 15:04 | XMS_ITS | Encounter Summary ---
Author Organization [employer] Address [address] [facility] 7t [place] [address] Care Team Providers Care Customer Support Coordinator Name Role Phone Abelino Montenegro MD Primary Care Provide r Reason for Visit * Reason Comments Med Refill Encounter Details Date Type Department Care Team ([facility] st Contact Info) Description 09/14/2023 Refill [facility] [address] [place], [place] [phone] Abelino Montenegro MD [address] [place] [address] Social History Tobacco Use Types Packs/Day Years [...] documented as of this encounter Care Teams Customer Support Coordinator Relationship Specialty Start Date End Date Abelino Montenegro MD [address] [place] [phone] PCP - General Internal Medicine 03/10/21 documented as of this encounter
--- OUTSIDE RECORDS SUMMARY | 2024-05-29 15:04 | XMS_ITS | Encounter Summary ---
Author Organization [employer] Address [address] [facility] 7t [place] [address] Care Team Providers Care Ecosystem Ecology Professor Name Role Phone Abelino Montenegro MD Primary Care Provide r Encounter Details Date Type Department Care Team ([facility] st Contact Info) Description 05/17/2024 Telephone [facility] MEDICINE [address] [place] [address] Abelino Montenegro MD 230 [place] [address] Social History Tobacco Use Types Packs/Day Years [...] documented as of this encounter Care Teams Ecosystem Ecology Professor Relationship Specialty Start Date End Date Abelino Montenegro MD 230 [place] [address] PCP - General Internal Medicine 03/10/21 documented as of this encounter
--- OUTSIDE RECORDS SUMMARY | 2024-05-29 15:04 | XMS_ITS | Encounter Summary ---
Author Organization [employer] Address [address] [facility] 7t [place] [address] Care Team Providers Care Geodesist Name Role Phone Abelino Montenegro MD Primary Care Provide r Reason for Visit * Reason Comments Med Refill Encounter Details Date Type Department Care Team ([facility] st Contact Info) Description 10/20/2023 Refill [facility] MEDICINE 230 [place] [address] Debbie Jaime MD 230 [place] [address] Gastroesophageal reflux disease without esophagitis Social History [...] documented as of this encounter Care Teams Geodesist Relationship Specialty Start Date End Date Abelino Montenegro MD [address] [place] [address] PCP - General Internal Medicine 03/10/21 documented as of this encounter
--- OUTSIDE RECORDS SUMMARY | 2024-05-29 15:04 | XMS_ITS | Encounter Summary ---
Author Organization [employer] Address [address] [facility] [address] 7t [place] [address] Care Team Providers Care Financial Sales Assistant Name Role Phone Abelino Montenegro MD Primary Care Provide r Reason for Visit * Reason Comments Med Refill Encounter Details Date Type Department Care Team ([facility] st Contact Info) Description 02/07/2024 Refill [facility] CH[facility] MED & PEDS [address] [place], [place] [phone] Abelino Montenegro MD 230 [place] [address] Social History Tobacco Use Types Packs/Day Years [...] documented as of this encounter Care Teams Financial Sales Assistant Relationship Specialty Start Date End Date Abelino Montenegro MD [address] [place] [address] PCP - General Internal Medicine 03/10/21 documented as of this encounter
--- OUTSIDE RECORDS SUMMARY | 2024-05-29 15:04 | XMS_ITS | Encounter Summary ---
Author Organization [employer] Address [address] [facility] 7t [place] [address] Care Team Providers Care Patient Information Coordinator Name Role Phone Abelino Montenegro MD Primary Care Provide r Reason for Visit * Reason Comments Med Refill Encounter Details Date Type Department Care Team ([facility] st Contact Info) Description 10/25/2023 Refill [facility] MEDICINE 230 [place] [address] Abelino Montenegro MD 230 [place] [address] Type 2 diabetes mellitus without complication, without long-term current use of insulin ([facility]); Mild intermittent asthma without complication; Benign hypertension Social History Tobacco Use Types [...] as of this encounter Visit Diagnoses Diagnosis Type 2 diabetes mellitus without complication, without long-term current use of insulin ([facility]) Mild intermittent asthma without complication Benign hypertension Essential hypertension, benign documented in this encounter Additional Health Concerns Assessment Noted Time PHQ-9 Depression Total Score: 0 09/02/19 23 11:43 AM EDT documented as of this encounter Care Teams Patient Information Coordinator Relationship Specialty Start Date End Date Abelino Montenegro MD [address] [place] [address] PCP - General Internal Medicine 03/10/21 documented as of this encounter
--- OUTSIDE RECORDS SUMMARY | 2024-05-29 15:04 | XMS_ITS | Encounter Summary ---
Author Organization [email or web address] Address [address] [place] [address] 7t [place] [address] Care Team Providers Care Stone Unloader Name Role Phone Abelino Montenegro MD Primary Care Provide r Reason for Referral * Consultation (Routine) - Authorized Specialty Diagnoses / Procedures Referred By Contac t Referred To Contact Neurology Diagnoses Forgetfulness Abelino Montenegro MD [address] [place] [address] Phone: tel: fax: Dinh Larsen MD [address] [place] [address] [place] [address] Phone: tel: fax: Referral ID Status Reason Start Date Expiration Date Visits Requested Visits Authorized [id number] Authorized Specialty Services Required 05/15/2024 05/15/2025 1 1 Reason for Visit * Reason Comments Diabetes Follow-up Grand daughter would like to be checked for early stages of Alzheimer's/ mini mental if possible; pt aso wants to know if she is due for PCV20 Encounter Details Date Type Department Care Team (Latest Contact Info) Description 05/15/2024 11:30 AM EST Office Visit [facility] MEDICINE [address] [place] [address] [phone] Abelino Montenegro MD [address] [place] [address] [phone] Forgetfulness (Primary Dx); Type 2 diabetes mellitus without complication, without long-term current use of insulin ([facility]); Dry eye; Acute cough Social History Tobacco Use Types Packs/Day Years [...] AM EDT documented as of this encounter Last Filed Vital Signs Vital Sign Reading [...] Mass Index 29.96 05/15/2024 11:46 AM EST documented in this encounter Progress Notes * Shadia Wheatley MA - 05/15/2024 11:30 AM EST 1 * Abelino Whitfield MD - 05/15/2024 11:30 AM EST SUBJECTIVE Mercedes Foley is a 74 y.o. female who presents for Diabetes and Follow-up (Grand daughter would like to be checked for early stages of Alzheimer's/ mini mental if possible; pt aso wants to know if she is due for PCV20). Diabetes She presents for her follow-up diabetic visit. She has type 2 diabetes mellitus. Pertinent negatives for hypoglycemia include no headaches. Pertinent negatives for diabetes include no chest pain. Cough This is a new problem. The current episode started 1 to 4 weeks ago. Pertinent negatives include nochest pain, fever, headaches, sore throat or shortness of breath. Review of Systems Constitutional: Negative for fever. HENT: Negative for sore throat. Respiratory: Positive for cough. Negative for shortness of breath. Cardiovascular: Negative for chest pain. Gastrointestinal: Negative for abdominal pain. Neurological: Negative for headaches. No Known Allergies OBJECTIVE Vitals: 05/15/24 1146 BP: 123/72 BP Location: Left arm Patient Position: Sitting BP Cuff Size: Large adult Pulse: 85 Resp: 20 Temp: 97.1 ??F (36.2 ??C) TempSrc: Temporal SpO2: 95% Weight: 163 lb 12.8 oz (74.3 kg) Height: 5' 2 (1.575 m) Physical Exam Vitals reviewed. Constitutional: Appearance: Normal appearance. HENT: Head: Normocephalic and atraumatic. Right Ear: External ear normal. Left Ear: External ear normal. Nose: Nose normal. Mouth/Throat: Mouth: Mucous membranes are moist. Eyes: Conjunctiva/sclera: Conjunctivae normal. Cardiovascular: Rate and Rhythm: Normal rate and regular rhythm. Pulmonary: Effort: Pulmonary effort is normal. Breath sounds: Normal breath sounds and air entry. No wheezing, rhonchi or rales. Skin: General: Skin is warm. Neurological: Mental Status: She is alert. Mental status is at baseline. Assessment/Plan Problem List Items Addressed This Visit Type 2 diabetes mellitus without complication ([facility]) Patient is here for a f/u regarding [...] on ASA daily Plan: Continue current regimen Relevant Orders POCT Glucose (Completed) POCT HGB A1C (Completed) Forgetfulness - Primary Pt's family concerned pt is more forgetful Pt's Mini Mental score 21, mainly because pt was unable to recall 3 objects and substract Plan: will refer to Neurology Relevant Orders Referral to Neurology Acute cough Pt with c/o persistent dry cough that is not going away Exam within normal limits, lungs CTA B Rapid covid and flu: negative Plan: supportive measures, guaifenesin PRN, Plain film of chest Follow up if cough becomes productive or she develops fever, sob or any other symptoms Relevant Medications guaiFENesin (Robitussin) 100 MG/5ML liquid Other Relevant Orders XR Chest 2 Views POCT Rapid Covid-19 BinaxNOW (Completed) POCT Rapid Influenza A HANSON ID NOW (Completed) POCT Rapid Influenza B HANSON ID NOW (Completed) Other Visit Diagnoses Dry eye Relevant Medications dextran 70-hypromellose PF (artificial tears) 0.1-0.3 % ophthalmic solution documented in this encounter Miscellaneous Notes * Assessment & Plan Note - Abelino Whitfield MD - 05/15/2024 12:35 PM EST Associated Problem(s): Acute cough Pt with c/o persistent dry cough that is not going away Exam within normal limits, lungs CTA B Rapid covid and flu: negative Plan: supportive measures, guaifenesin PRN, Plain film of chest Follow up if cough becomes productive or she develops fever, sob or any other symptoms * Assessment & Plan Note - Abelino Whitfield MD - 05/15/2024 12:13 PM EST Associated Problem(s): Forgetfulness Pt's family concerned pt is more forgetful Pt's Mini Mental score 21, mainly because pt was unable to recall 3 objects and substract Plan: will refer to Neurology * Assessment & Plan Note - Abelino Whitfield MD - 05/15/2024 12:13 PM EST Associated Problem(s): Type 2 diabetes mellitus without complication (CMS/HCC) Patient is here for a f/u regarding [...] on ASA daily Plan: Continue current regimen documented in this encounter Plan of Treatment Scheduled Referrals Name Type Priority Associated Diagnoses Orde r Schedule Referral to Neurology Outpatient Referral Routine Forgetfulness Expected: 05/15/2024 (Approximate), Expires: 05/15/2025 documented as of this encounter Procedures Procedure Name Priority Date/Time Associated Diagnosis [...] without long-term current use of insulin (CMS/HCC) documented in this encounter Results * XR Chest 2 Views (05/15/2024 1:02 PM EST) Anatomical Region Laterality Modality Chest Radiographic Remedios ging 05/15/2024 1:02 PM EST Narrative 05/15/2024 1:32 PM EST ?[facility] ?[address] ?[place] [address] ?XRay Report ? Signed ? Patient: Vizcarrondo,Mercedes ?MR#: [id number] ? : 1950 ?Acct:[id number] ? Age/Sex: 74 / F ?ADM Date: 05/15/24 ? Loc: HO.HHCX ? Attending Dr: Abelino Maddox MD ? Ordering Physician: Abelino Maddox MD ?? Date of Service: 05/15/24 ?? Procedure(s): XR chest 2V ?? Accession Number(s): [id number] ? cc: Abelino Maddox MD ? EXAMINATION: [...] DD/ 1302 ? TD/TT: 05/15/24 1315 ? Humane Officer: ? Procedure Note Sheilachandrakant, Image - 05/15/[address] [address] XRay Report Signed Patient: Ronnell Foley#: [id number] : 1950cct:[id number] Age/Sex: 74 / FADM Date: 05/15/24 Loc: HO.HHCX Attending Dr: Abelino Maddox MD Ordering Physician: Abelino Maddox MD Date of Service: 05/15/24 Procedure(s): XR chest 2V Accession Number(s): [id number] cc: Abelino Maddox MD EXAMINATION: XR CHEST [...] Oscar Gimenez MD 05/15/2024 01:29 PM EST RP Dictated By: Oscra Gimenez MD Signed By: <Electronically signed by Oscar Gimenez MD in OV> 05/15/24 1329 DD/ 1302 TD/TT: 05/15/24 1315 Humane Officer: Abelino Whitfield MD IMG XR PROCEDURES Fin al Result * POCT Rapid Covid-19 BinaxNOW (05/15/2024 12:48 PM EST) Pathologist [facility] Rapid COVID Ag Negative QC Media Lot # [id number] Lot# Expiration Date Swab 05/15/2024 12:4 8 PM EST Abelino Whitfield MD POINT OF CARE TEST EN TER/EDIT ORDERABLES Final Result * POCT Rapid Influenza B HANSON ID NOW (05/15/2024 12:47 PM EST) Pathologist [facility] Influenza B Negative Negative, Indeterminate [facility] QC Media Lot # [id number] [facility] Lot# Expiration Date [facility] Swab 05/15/2024 12:4 7 PM EST Abelino Whitfield MD POINT OF CARE TEST EN TER/EDIT ORDERABLES Final Result [facility] [address] [place] [phone] * POCT Rapid Influenza A HANSON ID NOW (05/15/2024 12:47 PM EST) Influenza A Negative Negative, Indeterminate [facility] QC Media Lot # [id number] [facility] Lot# Expiration Date [facility] Swab 05/15/2024 12:4 7 PM EST us Abelino Whitfield MD POINT OF CARE TEST EN TER/EDIT ORDERABLES Final Result [facility] [address] [place] [address] [phone] * (ABNORMAL) POCT HGB A1C (05/15/2024 12:00 PM EST) Hemoglobin A1C 6.6(A) 4.0 - 6.0 % QC Media Lot # [id number] Lot# Expiration Date Blood 05/15/2024 12:0 0 PM EST Result [facility] us Abelino Whitfield MD POINT OF CARE TEST EN TER/EDIT ORDERABLES Final Result * POCT Glucose (05/15/2024 12:00 PM EST) Glucose Blood, POC 112 60 - 200 mg/dL QC Media Lot # [id number] Lot# Expiration Date Blood Capillary blood specimen / Unknown 05/15/2024 12:00 PM EST Result [facility] us Abelino Whitfield MD POINT OF CARE TEST EN TER/EDIT ORDERABLES Final Result documented in this encounter Visit Diagnoses Diagnosis Forgetfulness- Primary Other general symptoms Type 2 diabetes mellitus without complication, without long-term current use of insulin ([facility]) Dry eye Acute cough documented in this encounter Additional Health Concerns Assessment Noted Time PHQ-9 Depression Total Score: 4 11/03/19 24 1:09 PM EDT documented as of this encounter Care Teams Stone Unloader Relationship Specialty Start Date End Date Abelino Montenegro MD [address] [place] [address] PCP - General Internal Medicine 03/10/21 documented as of this encounter
--- OUTSIDE RECORDS SUMMARY | 2024-05-29 15:04 | XMS_ITS | Encounter Summary ---
Author Organization [employer] Address [address] [facility] [address] 7t [place] [address] Care Team Providers Care Professor Of Environmental Science Name Role Phone Abelino Montenegro MD Primary Care Provide r Reason for Visit * Reason Comments Med Refill Encounter Details Date Type Department Care Team ([facility] st Contact Info) Description 01/18/2024 Refill [facility] CHC MED & PEDS [address] [place], [place] [phone] Abelino Montenegro MD 230 [place] [address] Social History Tobacco Use Types Packs/Day Years [...] documented as of this encounter Care Teams Professor Of Environmental Science Relationship Specialty Start Date End Date Abelino Montenegro MD [address] [place] [address] PCP - General Internal Medicine 03/10/21 documented as of this encounter
--- OUTSIDE RECORDS SUMMARY | 2024-05-29 15:04 | XMS_ITS | Encounter Summary ---
Author Organization [employer] Address [address] [facility] 7t [place] [address] Care Team Providers Care Summer Nanny Name Role Phone Abelino Montenegro MD Primary Care Provide r Reason for Visit * Reason Comments Med Refill Encounter Details Date Type Department Care Team ([facility] st Contact Info) Description 09/08/2023 Refill [facility] CHC MED & PEDS [address] [place], [place] [phone] Abelino Montenegro MD 230 [place] [address] Social History Tobacco Use Types Packs/Day Years [...] documented as of this encounter Care Teams Summer Nanny Relationship Specialty Start Date End Date Abelino Montenegro MD [address] [place] [address] PCP - General Internal Medicine 03/10/21 documented as of this encounter
--- OUTSIDE RECORDS SUMMARY | 2024-05-29 15:04 | XMS_ITS | Encounter Summary ---
Author Organization [employer] Address [address] [facility] 7t [place] [address] Care Team Providers Care Music Theory Professor Name Role Phone Abelino Montenegro MD Primary Care Provide r Reason for Visit * Reason Comments Med Refill Encounter Details Date Type Department Care Team ([facility] st Contact Info) Description 12/26/2023 Refill [facility] CHC MED & PEDS [address] [place], [place] [phone] Abelino Montenegro MD [address] [place] [address] Type 2 diabetes mellitus without complication, without long-term current use of insulin ([facility]) Social History Tobacco Use Types Packs/Day Years [...] complication, without long-term current use of insulin ([facility]) documented in this encounter Additional Health Concerns Assessment Noted Time PHQ-9 Depression Total Score: 4 11/03/19 24 1:09 PM EDT documented as of this encounter Care Teams Music Theory Professor Relationship Specialty Start Date End Date Abelino Montenegro MD [address] [place] [address] PCP - General Internal Medicine 03/10/21 documented as of this encounter
--- OUTSIDE RECORDS SUMMARY | 2024-05-29 15:04 | XMS_ITS | Encounter Summary ---
Author Organization [employer] Address [address] [facility] 7t [place] [address] Care Team Providers Care Community Program Assistant Name Role Phone Abelino Montenegro MD Primary Care Provide r Reason for Visit * Reason Comments Med Refill Encounter Details Date Type Department Care Team ([facility] st Contact Info) Description 11/03/2023 Refill [facility] MEDICINE [address] [place] [address] Debbie Jaime MD [address] [place] [address] Gastroesophageal reflux disease without esophagitis Social History [...] documented as of this encounter Care Teams Community Program Assistant Relationship Specialty Start Date End Date Abelino Montenegro MD [address] [place] [address] PCP - General Internal Medicine 03/10/21 documented as of this encounter
--- OUTSIDE RECORDS SUMMARY | 2024-05-29 15:04 | XMS_ITS | Encounter Summary ---
Author Organization [employer] Address [address] [facility] 7t [place] [address] Care Team Providers Care Manager Bank Name Role Phone Abelino Montenegro MD Primary Care Provide r Reason for Visit * Reason Comments Med Refill Encounter Details Date Type Department Care Team ([facility] st Contact Info) Description 11/11/2023 Refill [facility] MEDICINE 230 [place] [address] Abelino Montenegro MD [address] [place] [address] Type 2 diabetes mellitus without complication, without long-term current use of insulin ([facility]); Mild intermittent asthma without complication; [...] long-term current use of insulin ([facility]) Mild intermittent asthma without complication Benign hypertension Essential hypertension, benign documented in this encounter Additional Health Concerns Assessment Noted Time PHQ-9 Depression Total Score: 4 11/03/19 24 1:09 PM EDT documented as of this encounter Care Teams Manager Bank Relationship Specialty Start Date End Date Abelino Montenegro MD [address] [place] [address] PCP - General Internal Medicine 03/10/21 documented as of this encounter
--- OUTSIDE RECORDS SUMMARY | 2024-05-29 15:04 | XMS_ITS | Encounter Summary ---
Author Organization [employer] Address [address] [facility] [address]t [place] [address] Care Team Providers Care Accounts Receivable Processor Name Role Phone Abelino Montenegro MD Primary Care Provide r Reason for Visit * Reason Comments Med Refill Encounter Details Date Type Department Care Team ([facility] st Contact Info) Description 01/25/2024 Refill [facility] CHC MED & PEDS [address] [place], [place] [phone] Abelino Montenegro MD [address] [place] [address] Social History Tobacco Use Types Packs/Day Years [...] is your housing situation today? I have eflice kiser 11/03/[address] you [...] documented as of this encounter Care Teams Accounts Receivable Processor Relationship Specialty Start Date End Date Abelino Montenegro MD [address] [place] [address] PCP - General Internal Medicine 03/10/21 documented as of this encounter
--- OUTSIDE RECORDS SUMMARY | 2024-05-29 15:04 | XMS_ITS | Encounter Summary ---
Author Organization [employer] Address [address] [facility] 7t [place] [address] Care Team Providers Care Insurance Risk Surveyor Name Role Phone Abelino Montenegro MD Primary Care Provide r Reason for Visit * Reason Comments Med Refill Encounter Details Date Type Department Care Team ([facility] st Contact Info) Description 12/15/2023 Refill [facility] CHC MED & PEDS [address] [place], [place] [phone] Abelino Montenegro MD [address] [place] [address] Type 2 diabetes mellitus without complication, without long-term current use of insulin ([facility]) Social History Tobacco Use Types Packs/Day Years [...] complication, without long-term current use of insulin ([facility]) documented in this encounter Additional Health Concerns Assessment Noted Time PHQ-9 Depression Total Score: 4 11/03/19 24 1:09 PM EDT documented as of this encounter Care Teams Insurance Risk Surveyor Relationship Specialty Start Date End Date Abelino Montenegro MD [address] [place] [address] PCP - General Internal Medicine 03/10/21 documented as of this encounter
--- OUTSIDE RECORDS SUMMARY | 2024-05-29 15:04 | XMS_ITS | Encounter Summary ---
Author Organization [employer] Address [address] [facility] 7t [place] [address] Care Team Providers Care Senior Cost Estimator Name Role Phone Abelino Montenegro MD Primary Care Provide r Reason for Visit * Reason Comments Med Refill Encounter Details Date Type Department Care Team ([facility] st Contact Info) Description 12/14/2023 Refill [facility] [address] [place] [address] Abelino Montenegro MD [address] [place] [address] Seasonal allergies; Essential hypertension Social History Tobacco Use Types Packs/Day [...] as of this encounter Visit Diagnoses Diagnosis Seasonal allergies Allergic rhinitis, cause unspecified Essential hypertension Unspecified essential hypertension documented in this encounter Additional Health Concerns Assessment Noted Time PHQ-9 Depression Total Score: 4 11/03/19 24 1:09 PM EDT documented as of this encounter Care Teams Senior Cost Estimator Relationship Specialty Start Date End Date Abelino Montenegro MD [address] [place] [address] PCP - General Internal Medicine 03/10/21 documented as of this encounter
--- OUTSIDE RECORDS SUMMARY | 2024-05-29 15:05 | XMS_ITS | Encounter Summary ---
Author Organization [employer] Address [address] [facility] 7t [place] [address] Care Team Providers Care Central Sterilization Technician Name Role Phone Abelino Montenegro MD Primary Care Provide r Reason for Visit * Reason Comments Med Refill Encounter Details Date Type Department Care Team ([facility] st Contact Info) Description 06/10/2023 Refill [facility] MEDICINE [address] [place] [address] Abelino Montenegro MD [address] [place] [address] Social History Tobacco Use Types Packs/Day Years [...] documented as of this encounter Care Teams Central Sterilization Technician Relationship Specialty Start Date End Date Abelino Montenegro MD [address] [place] [address] PCP - General Internal Medicine 03/10/21 documented as of this encounter
--- OUTSIDE RECORDS SUMMARY | 2024-05-29 15:05 | XMS_ITS | Encounter Summary ---
Author Organization [employer] Address 75 [facility] 7t [place] [address] Care Team Providers Care Collector Of Internal Revenue Name Role Phone Abelino Montenegro MD Primary Care Provide r Reason for Visit * Reason Comments Med Refill Encounter Details Date Type Department Care Team ([facility] st Contact Info) Description 05/23/2023 Refill [facility] MEDICINE [address] [place] [address] Abelino Montenegro MD [address] [place] [address] Seasonal allergies; Essential hypertension Social History Tobacco [...] documented as of this encounter Care Teams Collector Of Internal Revenue Relationship Specialty Start Date End Date Abelino Montenegro MD [address] [place] [phone] PCP - General Internal Medicine 03/10/21 documented as of this encounter
--- OUTSIDE RECORDS SUMMARY | 2024-05-29 15:05 | XMS_ITS | Encounter Summary ---
Author Organization [employer] Address 75 [facility] 7t [place] [address] Care Team Providers Care Door Worker Name Role Phone Abelino Montenegro MD Primary Care Provide r Encounter Details Date Type Department Care Team (Late st Contact Info) Description 06/14/2022 Orders Only [facility] [address] [place] [address] Viv Barnard LPN Social History Tobacco Use Types Packs/Day Years Used Date Smoking Tobacco: Never Assessed Comments Unknown Sex and Gender Information Value Date Recorded Sex Assigned at Female 03/08/2022 10:15 AM EDT Legal Sex Female 10:15 AM EDT Gender Identity Female 03/08/2022 10:15 AM EDT Sexual Orientation Don't know 03/08/2022 10 :15 AM EDT documented as of this encounter Plan of Treatment Not on file documented as of this encounter Visit Diagnoses Not on filedocumented in this encounter Care Teams Door Worker Relationship Specialty Start Date End Date Abelino Montenegro MD [address] [place] [address] PCP - General Internal Medicine 03/10/21 documented as of this encounter
--- OUTSIDE RECORDS SUMMARY | 2024-05-29 15:05 | XMS_ITS | Encounter Summary ---
Author Organization [employer] Address 75 [facility] 7t [place] [address] Care Team Providers Care Marketing Professor Name Role Phone Abelino Montenegro MD Primary Care Provide r Reason for Visit * Reason Comments Med Refill Encounter Details Date Type Department Care Team ([facility] st Contact Info) Description 01/01/2023 Refill [facility] MEDICINE [address] [place] [address] Abelino Montenegro MD [address] [place] [address] Benign hypertension Social History Tobacco Use Types Packs/Day Years Used Date Smoking Tobacco: Never Smokeless Tobacco: Never Alcohol Use Standard Drinks/Week Comments Never 0 (1 standard drink = 0.6 oz pur e alcohol) Depression Answer Date Recorded Patient Health Questionnaire-9 Score 0 09/01/2022 Depression Answer Date Recorded Patient Health Questionnaire-2 [...] Diagnoses Diagnosis Benign hypertension Essential hypertension, benign documented in this encounter Additional Health Concerns Assessment Noted Time PHQ-9 Depression Total Score: 0 09/02/19 23 11:43 AM EDT documented as of this encounter Care Teams Marketing Professor Relationship Specialty Start Date End Date Abelino Montenegro MD [address] [place] [address] PCP - General Internal Medicine 03/10/21 documented as of this encounter
--- OUTSIDE RECORDS SUMMARY | 2024-05-29 15:05 | XMS_ITS | Encounter Summary ---
Author Organization [employer] Address 75 [facility] 7t [place] [address] Care Team Providers Care Machine Tack Puller Name Role Phone Abelino Montenegro MD Primary Care Provide r Reason for Visit * Reason Comments Med Refill Encounter Details Date Type Department Care Team ([facility] st Contact Info) Description 07/06/2023 Refill [facility] MEDICINE [address] [place] [address] Abelino Montenegro MD [address] [place] [address] Social History Tobacco Use Types Packs/Day Years [...] documented as of this encounter Care Teams Machine Tack Puller Relationship Specialty Start Date End Date Abelino Montenegro MD [address] [place] [address] PCP - General Internal Medicine 03/10/21 documented as of this encounter
--- OUTSIDE RECORDS SUMMARY | 2024-05-29 15:05 | XMS_ITS | Encounter Summary ---
Author Organization [employer] [facility] Address [address] [place] [address] 7t [place] [address] Care Team Providers Care Vegetable I Farmworker Name Role Phone Abelino Montenegro MD Primary Care Provide r Encounter Details Date Type Department Care Team (Late st Contact Info) Description 06/21/2022 Orders Only [facility] MEDICINE [address] [place] [address] Zully Hallman LPN Social History Tobacco Use Types Packs/Day [...] on filedocumented in this encounter Care Teams Vegetable I Farmworker Relationship Specialty Start Date End Date Abelino Montenegro MD [address] [place] [address] PCP - General Internal Medicine 03/10/21 documented as of this encounter
--- OUTSIDE RECORDS SUMMARY | 2024-05-29 15:05 | XMS_ITS | Encounter Summary ---
Author Organization [employer] Address 75 [facility] 7t [place] [address] Care Team Providers Care Candy Feeder Name Role Phone Abelino Montenegro MD Primary Care Provide r Encounter Details Date Type Department Care Team (Late st Contact Info) Description 09/15/2022 Abstract [facility] MEDICINE 230 [place] [address] Abelino Montenegro MD [address] [place] [address] Social History Tobacco Use Types Packs/Day Years [...] Don't know 03/08/2022 10 :15 AM EDT COVID-19 Exposure Response Date Recorded In the last 10 days, have yo u been in contact with someone who was confirmed or suspected to have Coronavirus/COVID-19? No / Unsure 09/01/2022 10:52 AM EDT documented as of this encounter Plan of Treatment Not on file documented as of this encounter Visit Diagnoses Not on filedocumented in this encounter Additional Health Concerns Assessment Noted Time PHQ-9 Depression Total Score: 0 09/02/19 23 11:43 AM EDT documented as of this encounter Care Teams Candy Feeder Relationship Specialty Start Date End Date Abelino Montenegro MD [address] [place] [id number] PCP - General Internal Medicine 03/10/21 documented as of this encounter
--- OUTSIDE RECORDS SUMMARY | 2024-05-29 15:05 | XMS_ITS | Encounter Summary ---
Author Organization [employer] Address 75 [facility] 7t [place] [address] Care Team Providers Care Entry Level Electrician Name Role Phone Abelino Montenegro MD Primary Care Provide r Reason for Visit * Reason Comments Med Refill Encounter Details Date Type Department Care Team ([facility] st Contact Info) Description 12/25/[address] [facility] MEDICINE [address] [place] [address] Abelino Montenegro MD 230 [place] [address] Social History Tobacco Use Types Packs/Day Years [...] documented as of this encounter Care Teams Entry Level Electrician Relationship Specialty Start Date End Date Abelino Montenegro MD [address] [facility] [place] [address] PCP - General Internal Medicine 03/10/21 documented as of this encounter
--- OUTSIDE RECORDS SUMMARY | 2024-05-29 15:05 | XMS_ITS | Encounter Summary ---
Author Organization [employer] Address 75 [facility] 7t [place] [address] Care Team Providers Care Hvac/R Service Technician Name Role Phone Abelino Montenegro MD Primary Care Provide r Reason for Visit * Reason Comments Med Refill Encounter Details Date Type Department Care Team ([facility] st Contact Info) Description 02/03/[address] [facility] MEDICINE [address] [place] [address] Abelino Montenegro MD [address] [place] [address] Social History Tobacco Use Types Packs/Day Years [...] documented as of this encounter Care Teams Hvac/R Service Technician Relationship Specialty Start Date End Date Abelino Montenegro MD [address] [place] [address] PCP - General Internal Medicine 03/10/21 documented as of this encounter
--- OUTSIDE RECORDS SUMMARY | 2024-05-29 15:05 | XMS_ITS | Encounter Summary ---
Author Organization [employer] Address 75 [facility] 7t [place] [address] Care Team Providers Care Manager Environmental Health And Safety Name Role Phone Abelino Montenegro MD Primary Care Provide r Reason for Visit * Reason Comments Med Refill Encounter Details Date Type Department Care Team ([facility] st Contact Info) Description 03/04/2023 Refill [facility] MEDICINE [address] [place] [address] Abelino Montenegro MD [address] [place] [address] Social History Tobacco Use Types Packs/Day Years [...] as of this encounter Care Teams Manager Environmental Health And Safety Relationship Specialty Start Date End Date Abelino Montenegro MD [address] [place] [address] PCP - General Internal Medicine 03/10/21 documented as of this encounter
--- OUTSIDE RECORDS SUMMARY | 2024-05-29 15:05 | XMS_ITS | Encounter Summary ---
Author Organization [employer] Address 75 [facility] 7t [place] [address] Care Team Providers Care 2 Year Olds Preschool Teacher Name Role Phone Abelino Montenegro MD Primary Care Provide r Reason for Visit * Reason Comments Med Refill Encounter Details Date Type Department Care Team ([facility] st Contact Info) Description 01/28/2023 Refill [facility] MEDICINE [address] [place] [address] Abelino Montenegro MD [address] [place] [address] Social History Tobacco Use Types Packs/Day Years [...] documented as of this encounter Care Teams 2 Year Olds Preschool Teacher Relationship Specialty Start Date End Date Abelino Montenegro MD [address] [place] [address] PCP - General Internal Medicine 03/10/21 documented as of this encounter
--- OUTSIDE RECORDS SUMMARY | 2024-05-29 15:05 | XMS_ITS | Encounter Summary ---
Author Organization [employer] Address 75 [facility] 7t [place] [address] Care Team Providers Care Emt I/99 Name Role Phone Abelino Montenegro MD Primary Care Provide r Reason for Visit * Reason Comments Med Refill Encounter Details Date Type Department Care Team ([facility] st Contact Info) Description 06/17/2023 Refill [facility] MEDICINE [address] [place] [address] Abelino Montenegro MD [address] [place] [address] Social History Tobacco Use Types Packs/Day Years [...] documented as of this encounter Care Teams Emt I/99 Relationship Specialty Start Date End Date Abelino Montenegro MD [address] [place] [address] PCP - General Internal Medicine 03/10/21 documented as of this encounter
--- OUTSIDE RECORDS SUMMARY | 2024-05-29 15:05 | XMS_ITS | Encounter Summary ---
Author Organization [employer] Address [address] [facility] 7t [place] [address] Care Team Providers Care Sheet Metal Journeyman Name Role Phone Abelino Montenegro MD Primary Care Provide r Encounter Details Date Type Department Care Team (Late st Contact Info) Description 09/16/2022 Abstract [facility] MEDICINE [address] [place] [address] Abelino Montenegro MD [address] [place] [address] Social History Tobacco Use Types Packs/Day Years [...] documented as of this encounter Care Teams Sheet Metal Journeyman Relationship Specialty Start Date End Date Abelino Montenegro MD [address] [place] [id number] PCP - General Internal Medicine 03/10/21 documented as of this encounter
--- OUTSIDE RECORDS SUMMARY | 2024-05-29 15:05 | XMS_ITS | Encounter Summary ---
Author Organization [employer] Address 75 [facility] 7t [place] [address] Care Team Providers Care Cherry Pitter Name Role Phone Abelino Montenegro MD Primary Care Provide r Reason for Visit * Reason Onset Date Comments Med Refill 05/18/2023 Encounter Details Date Type Department Care Team ([facility] st Contact Info) Description 05/18/2023 Telephone [facility] MEDICINE 230 [place] [address] Abelino Montenegro MD [address] [place] [address] Med Refill Social History Tobacco Use Types Packs/Day Years [...] encounter Miscellaneous Notes * Telephone Encounter - Viv Barnard LPN - 05/18/2023 9:53 AM EST Medication pended to PCP. * Telephone Encounter - Bin Corona - 05/18/2023 9:48 AM EST Tc from [facility] pharmacy requesting a refill for pregabalin (Lyrica) 100 MG capsule documented in this encounter Plan of Treatment Not on file documented as of this encounter Visit Diagnoses Not on filedocumented in this encounter Additional Health Concerns Assessment Noted Time PHQ-9 Depression Total Score: 0 09/02/19 23 11:43 AM EDT documented as of this encounter Care Teams Cherry Pitter Relationship Specialty Start Date End Date Abelino Montenegro MD [address] [place] [address] PCP - General Internal Medicine 03/10/21 documented as of this encounter
--- OUTSIDE RECORDS SUMMARY | 2024-05-29 15:05 | XMS_ITS | Encounter Summary ---
Author Organization [employer] Address 75 [facility] 7t [place] [address] Care Team Providers Care Manager Physical Name Role Phone Abelino Montenegro MD Primary Care Provide r Reason for Visit * Reason Comments Med Refill Encounter Details Date Type Department Care Team ([facility] st Contact Info) Description 09/03/2023 Refill [facility] PEDS [address] [place], [place] [phone] Abelino Montenegro MD [address] [place] [address] Social History Tobacco Use Types Packs/Day Years [...] as of this encounter Care Teams Manager Physical Relationship Specialty Start Date End Date Abelino Montenegro MD [address] [place] [address] PCP - General Internal Medicine 03/10/21 documented as of this encounter
--- OUTSIDE RECORDS SUMMARY | 2024-05-29 15:05 | XMS_ITS | Encounter Summary ---
Author Organization [employer] Address 75 [facility] 7t [place] [address] Care Team Providers Care Heart Specialist Name Role Phone Abelino Montenegro MD Primary Care Provide r Reason for Visit * Reason Comments Med Refill Encounter Details Date Type Department Care Team ([facility] st Contact Info) Description 07/26/2023 Refill [facility] MEDICINE [address] [place] [address] Abelino Montenegro MD [address] [place] [address] Social History Tobacco Use Types Packs/Day Years [...] documented as of this encounter Care Teams Heart Specialist Relationship Specialty Start Date End Date Abelino Montenegro MD [address] [place] [address] PCP - General Internal Medicine 03/10/21 documented as of this encounter
--- OUTSIDE RECORDS SUMMARY | 2024-05-29 15:05 | XMS_ITS | Encounter Summary ---
Author Organization [employer] Address 75 [facility] 7t [place] [address] Care Team Providers Care Clinical Informatics Director Name Role Phone Abelino Montenegro MD Primary Care Provide r Reason for Visit * Reason Comments Med Refill Encounter Details Date Type Department Care Team ([facility] st Contact Info) Description 03/29/2023 Refill [facility] PEDS [address] [place], [place] [phone] Abelino Montenegro MD 230 [place] [address] Social History Tobacco Use Types Packs/Day Years Used Date Smoking Tobacco: Never Passive Smoke Exposure: Never Smokeless Tobacco: Never Alcohol Use Standard Drinks/Week Comments Never 0 (1 standard drink = 0.6 oz pur e alcohol) Depression Answer Date Recorded Patient Health Questionnaire-9 Score 0 09/01/2022 Housing Stability Answer Date Recorded What is your housing situation today? I have feilce kiser 02/21/[address] you [...] documented as of this encounter Care Teams Clinical Informatics Director Relationship Specialty Start Date End Date Abelino Montenegro MD [address] [place] [address] PCP - General Internal Medicine 03/10/21 documented as of this encounter
--- OUTSIDE RECORDS SUMMARY | 2024-05-29 15:05 | XMS_ITS | Encounter Summary ---
Author Organization [employer] Address 75 [facility] 7t [place] [address] Care Team Providers Care Sales Designer Name Role Phone Abelino Montenegro MD Primary Care Provide r Reason for Visit * Reason Comments Med Refill Encounter Details Date Type Department Care Team ([facility] st Contact Info) Description 03/21/2023 Refill [facility] [address] [place] [address] Debbie Jaime MD [address] [place] [address] Gastroesophageal reflux disease without esophagitis Social History [...] documented as of this encounter Care Teams Sales Designer Relationship Specialty Start Date End Date Abelino Montenegro MD [address] [place] [address] PCP - General Internal Medicine 03/10/21 documented as of this encounter
--- OUTSIDE RECORDS SUMMARY | 2024-05-29 15:05 | XMS_ITS | Encounter Summary ---
Author Organization [employer] Address 75 [facility] 7t [place] [address] Care Team Providers Care Supervisor Continuous Weld Pipe Mill Name Role Phone Abelino Montenegro MD Primary Care Provide r Reason for Visit * Reason Comments Med Refill Encounter Details Date Type Department Care Team ([facility] st Contact Info) Description 04/14/[address] [facility] MEDICINE [address] [place] [address] Abelino Montenegro MD [address] [place] [address] Social History Tobacco Use Types Packs/Day Years [...] documented as of this encounter Care Teams Supervisor Continuous Weld Pipe Mill Relationship Specialty Start Date End Date Abelino Montenegro MD [address] [place] [address] PCP - General Internal Medicine 03/10/21 documented as of this encounter
--- OUTSIDE RECORDS SUMMARY | 2024-05-29 15:05 | XMS_ITS | Encounter Summary ---
Author Organization [employer] Address 75 [facility] 7t [place] [address] Care Team Providers Care Information Technology Auditor Name Role Phone Abelino Montenegro MD Primary Care Provide r Reason for Visit * Reason Comments Med Refill Encounter Details Date Type Department Care Team ([facility] st Contact Info) Description 01/20/2023 Refill [facility] MEDICINE [address] [place] [address] Abelino Montenegro MD [address] [place] [address] Social History Tobacco Use Types Packs/Day Years [...] documented as of this encounter Care Teams Information Technology Auditor Relationship Specialty Start Date End Date Abelino Montenegro MD [address] [place] [address] PCP - General Internal Medicine 03/10/21 documented as of this encounter
--- OUTSIDE RECORDS SUMMARY | 2024-05-29 15:05 | XMS_ITS | Clinical Summary ---
Author Organization [employer] Address [address] [place] [id number] Care Team Providers Care Cordwood Cutter Name Role Phone Unavailable Primary Care Provider Unavailabl e Social History Tobacco Use Types Packs/Day Years Used Date Smoking Tobacco: Never Assessed Comments Unknown Sex and Gender Information Value Date Recorded Sex Assigned at Not on file Legal Sex Female 9:28 AM EST Gender Identity Not on file Sexual Orientation Not on file Plan of Treatment Health Maintenance Due Date Last Done Comments HIV screening 1964 Hepatitis C screening 1969 Tetanus adult (Td q 10,TDAP once) 1971 Breast cancer screening 1991 Lipid disorder screening 1991 Colon cancer screening, Colonoscopy 1996 Shingles vaccine (Shingrix) (1 of 2 - Shingrix (RZV) 2 Dose Standard Series) 2001 Diabetes screening 01/14/2014 01/14/2011, 0 01/13/2011, 01/13/2011, Additional history exists Osteoporosis screening (bone density) 2016 Pneumo Vaccine 65+ (1 of 1 - PCV) 2016 Influenza vaccine 12/08/2023 Covid-19 vaccine series ( - 2023-25 season) 2024 RSV Discussion (1 - 1-dose 75+ series) 2026 Cervical cancer screening Discontinued Meningococcal Vaccine Aged Out No joseph christy eligible based on patient's age to complete this topic Procedures Procedure Name Priority Date/Time Associated Diagnosis Comments BASIC METABOLIC PANEL Routine 01/14/2011 3:30 AM EDT from Last 3 Months or Most Recently Relevant to Health Maintenance Results * (ABNORMAL) Basic metabolic panel (01/14/2011 3:30 AM EDT) Glucose 233(H) 70 - 100 mg/dL [facility] BUN 7 7 - 20 mg/dL [facility] Creatinine 0.6 0.5 - 1.2 mg/dL [facility] BUN/Creatinine Ratio 11.7 10.0 - 20.0 [facility] Anion Gap 11 7 - 16 [facility] CO2 21.8(L) 22.0 - 30.0 mmol/L [facility] Chloride 104 96 - 106 mmol/L [facility] Sodium 137 135 - 145 mmol/L [facility] Potassium 4.3 3.5 - 5.0 mmol/L [facility] Calcium 9.1 8.8 - 10.2 mg/dL [facility] 01/14/2011 3:30 AM EDT us [facility] BLOOD ORDERABLES Final Resul t [facility] [address] [place] [phone] from Last 3 Months or Most Recently Relevant to Health Maintenance
--- OUTSIDE RECORDS SUMMARY | 2024-05-29 15:05 | XMS_ITS | Encounter Summary ---
Author Organization [employer] Address 75 [facility] 7t [place] [address] Care Team Providers Care Saddle Stitch Operator Name Role Phone Abelino Montenegro MD Primary Care Provide r Reason for Visit * Reason Comments Med Refill Encounter Details Date Type Department Care Team (Late st Contact Info) Description 09/14/2022 Refill [facility] MEDICINE [address] [place] [address] Kimberlyn Phillips MD [address] [place] [address] Gastroesophageal reflux disease without esophagitis Social History [...] documented as of this encounter Care Teams Saddle Stitch Operator Relationship Specialty Start Date End Date Abelino Montenegro MD [address] [place] [address] PCP - General Internal Medicine 03/10/21 documented as of this encounter
--- OUTSIDE RECORDS SUMMARY | 2024-05-29 15:05 | XMS_ITS | Encounter Summary ---
Author Organization [employer] Address 75 [facility] 7t [place] [address] Care Team Providers Care Cabinet And Trim Installer Name Role Phone Abelino Montenegro MD Primary Care Provide r Reason for Visit * Reason Comments Med Refill Encounter Details Date Type Department Care Team ([facility] st Contact Info) Description 12/18/[address] [facility] [address] [place], [place] [phone] [facility] [address] [place] [address] Essential hypertension Social History Tobacco Use Types [...] as of this encounter Visit Diagnoses Diagnosis Essential hypertension Unspecified essential hypertension documented in this encounter Additional Health Concerns Assessment Noted Time PHQ-9 Depression Total Score: 0 09/02/19 23 11:43 AM EDT documented as of this encounter Care Teams Cabinet And Trim Installer Relationship Specialty Start Date End Date Abelino Montenegro MD [address] [place] [address] PCP - General Internal Medicine 03/10/21 documented as of this encounter
--- OUTSIDE RECORDS SUMMARY | 2024-05-29 15:05 | XMS_ITS | Encounter Summary ---
Author Organization [employer] Address 75 [facility] 7t [place] [address] Care Team Providers Care Track Template Maker Name Role Phone Abelino Montenegro MD Primary Care Provide r Reason for Visit * Reason Onset Date Comments Med Refill 02/18/2023 Encounter Details Date Type Department Care Team (Late st Contact Info) Description 02/18/2023 Refill [facility] MED[facility]INE [address] [place] [address] Abelino Montenegro MD [address] [place] [address] Type 2 diabetes mellitus without complication, with long-term current use of insulin ([facility]) Social History Tobacco Use Types Packs/Day Years [...] Diagnosis Type 2 diabetes mellitus without complication, with long-term current use of insulin ([facility]) documented in this encounter Additional Health Concerns Assessment Noted Time PHQ-9 Depression Total Score: 0 09/02/19 23 11:43 AM EDT documented as of this encounter Care Teams Track Template Maker Relationship Specialty Start Date End Date Abelino Montenegro MD [address] [place] [address] PCP - General Internal Medicine 03/10/21 documented as of this encounter
--- OUTSIDE RECORDS SUMMARY | 2024-05-29 15:05 | XMS_ITS | Encounter Summary ---
Author Organization [employer] Address 75 [facility] 7t [place] [address] Care Team Providers Care Inspector Fabric Name Role Phone Abelino Montenegro MD Primary Care Provide r Reason for Visit * Reason Comments Med Refill Encounter Details Date Type Department Care Team ([facility] st Contact Info) Description 01/07/2023 Refill [facility] [address] [place] [address] Abelino Montenegro MD [address] [place] [address] Social History Tobacco Use Types Packs/Day Years [...] encounter Miscellaneous Notes * Telephone Encounter - Marquita Zuleta RN - 01/20/2023 1:37 PM EDT Faxed results as below as STAT. Telephone call placed to [facility]. Spoke to RN whostates will give to provider for review DIONY and will follow up with pt. * Telephone Encounter - Marquita Zuleta RN - 01/20/2023 12:03 PM EDT ----- Message from Abelino Whitfield MD sent at 01/19/2023 2:57 PM EDT ----- CT of Abdomen done at [facility] worrisome for gastritis or ulcer disease, mass cannot be excluded, Pleasefax report to [facility] Gastroenterology ( She is their patient ) to make sure they are aware of the CT findings. Let me know documented in this encounter Plan of Treatment Not on file documented as of this encounter Visit Diagnoses Not on filedocumented in this encounter Additional Health Concerns Assessment Noted Time PHQ-9 Depression Total Score: 0 09/02/19 23 11:43 AM EDT documented as of this encounter Care Teams Inspector Fabric Relationship Specialty Start Date End Date Abelino Montenegro MD [address] [place] [address] PCP - General Internal Medicine 03/10/21 documented as of this encounter
--- OUTSIDE RECORDS SUMMARY | 2024-05-29 15:05 | XMS_ITS | Encounter Summary ---
Author Organization [employer] Address 75 [facility] 7t [place] [address] Care Team Providers Care Chemical Detection Expert Name Role Phone Abelino Montenegro MD Primary Care Provide r Reason for Visit * Reason Comments Med Refill Encounter Details Date Type Department Care Team ([facility] st Contact Info) Description 06/14/2023 Refill [facility] 230 [place] [address] Abelino Montenegro MD [address] [place] [address] Mild intermittent asthma without complication Social History [...] Diagnoses Diagnosis Mild intermittent asthma without complication documented in this encounter Additional Health Concerns Assessment Noted Time PHQ-9 Depression Total Score: 0 09/02/19 23 11:43 AM EDT documented as of this encounter Care Teams Chemical Detection Expert Relationship Specialty Start Date End Date Abelino Montenegro MD [address] [place] [address] PCP - General Internal Medicine 03/10/21 documented as of this encounter
--- OUTSIDE RECORDS SUMMARY | 2024-05-29 15:05 | XMS_ITS | Encounter Summary ---
Author Organization [employer] [facility] Address 75 [facility] 7t [place] [address] Care Team Providers Care Dental Cream Maker Name Role Phone Abelino Montenegro MD Primary Care Provide r Reason for Visit * Reason Comments Med Refill Encounter Details Date Type Department Care Team ([facility] st Contact Info) Description 10/08/2022 Refill [facility] MED[facility]INE 230 [place] [address] Abelino Montenegro MD 230 [place] [address] Social History Tobacco Use Types Packs/Day Years [...] suspected to have Coronavirus/COVID-19? No / Unsure 10/05/2022 9:41 AM EDT documented as of this encounter Plan of Treatment Not on file documented as of this encounter Visit Diagnoses Not on filedocumented in this encounter Additional Health Concerns Assessment Noted Time PHQ-9 Depression Total Score: 0 09/02/19 23 11:43 AM EDT documented as of this encounter Care Teams Dental Cream Maker Relationship Specialty Start Date End Date Abelino Montenegro MD [address] [place] [address] PCP - General Internal Medicine 03/10/21 documented as of this encounter
--- OUTSIDE RECORDS SUMMARY | 2024-05-29 15:05 | XMS_ITS | Encounter Summary ---
Author Organization [employer] Address 75 [facility] 7t [place] [address] Care Team Providers Care Printing Table Hand Name Role Phone Abelino Montenegro MD Primary Care Provide r Reason for Visit * Reason Comments Med Refill Encounter Details Date Type Department Care Team ([facility] st Contact Info) Description 04/25/2023 Refill [facility] MEDICINE [address] [place] [address] Abelino Montenegro MD [address] [place] [address] Social History Tobacco Use Types Packs/Day Years [...] documented as of this encounter Care Teams Printing Table Hand Relationship Specialty Start Date End Date Abelino Montenegro MD 230 [place] [address] PCP - General Internal Medicine 03/10/21 documented as of this encounter
--- OUTSIDE RECORDS SUMMARY | 2024-05-29 15:05 | XMS_ITS | Encounter Summary ---
Author Organization [employer] Address 75 [facility] 7t [place] [address] Care Team Providers Care Video Production Assistant Name Role Phone Abelino Montenegro MD Primary Care Provide r Encounter Details Date Type Department Care Team (Late st Contact Info) Description 06/30/2022 Orders Only [facility] [address] [place] [address] Viv Barnard LPN Social History Tobacco Use Types Packs/Day Years Used Date Smoking Tobacco: Never Smokeless Tobacco: Never Comments Unknown Sex and Gender Information Value [...] suspected to have Coronavirus/COVID-19? No / Unsure 06/29/2022 12:39 PM EST documented as of this encounter Plan of Treatment Not on file documented as of this encounter Visit Diagnoses Not on filedocumented in this encounter Additional Health Concerns Assessment Noted Time PHQ-9 Depression Total Score: 0 06/29/19 23 1:07 PM EST documented as of this encounter Care Teams Video Production Assistant Relationship Specialty Start Date End Date Abelino Montenegro MD [address] [place] [address] PCP - General Internal Medicine 03/10/21 documented as of this encounter
--- OUTSIDE RECORDS SUMMARY | 2024-05-29 15:05 | XMS_ITS | Data Portability ---
Author Organization [employer] Address [address] [place] [address] Care Team Providers Care Fare Enforcement Officer Name Role Phone HIM [facility] OTHER [facility] OTHER Assessment Encounter Date Assessment Date Assessment LastModified by Organization Details LastModified Time 09/23/2021 09/23/2021 I have reviewed and agree with the assessment and plan as documented by the sales representative girls' apparel. I provided real-time medical direction for this [...] conducted with the use of professional medical office worker. REQUEST THAT CARE TEAM ATTEMPT TO ESTABLISH [...] resolution. If persists, would rec derm referral. [email or web address] Not available 01/12/2024 19:09:28 01/19/2024 01/19/2024 I provided real -time medical direction via phone for this encounter, and was available for additional phone based assistance as needed. I have reviewed and agree with the Assessment and Plan as documented by the Regional Wildlife Agent. We discussed the diagnostic uncertainty of home [...] to call 911- verbalized understanding of instruction [email or web address] Not available 01/19/2024 15:13:59 Plan of Treatment Reminders Order Date Submit Date Provider Last Modified By Organization Details Last Modified Time Details Appointments None recorded. Lab glucose, fingerstick , blood 2023 024 [email or web address] 0 [facility], [address] [place] [address], [phone], 4 23:29:05 BMP, serum or plasma 2023 024 [email or web address] 0 [facility], [address] [place] [address], [phone], 4 23:29:03 Referral None recorded. Procedures None recorded. Surgeries None recorded. Imaging None recorded. Medication Orders clobetasol 0.05 % topical ointment 2023 024 [id number], [address] [place], [address], 4 17:58:36 ketorolac 30 mg/mL injection solution 2023 024 [email or web address] 0 [id number], [address] [place], [address], 4 23:29:03 Patient TargetsNo targets recorded. Patient InstructionsNo instructions recorded. Reason for Referral None Reported. Results Created Date Observation Date Name Description Value Unit Range Abnormal Flag Note LastModifiedBy Organization Detail LastModifiedTime 01/19/20 24 01/19/2024 gluco se, finge rsmartin k, blood Blood Glucose: mg/dl 115 Not Available Main - [facility] [address] [place] [address], [place], [phone], 01/19/2024 15:14:35 Result Notes None recorded. Medical [...] Details Last Updated DateTime 4 82 /min 91844.9 04 g 98 % 98 % 16 /min 98.2 [degF] 132 mm[Hg] 84 mm[Hg] Not Available [facility] 4 16:27:09 Date Recorded Body temperature Respiratory rate Body weight Heart rate Oxygen saturation Oxygen saturation in Arterial blood by Pulse oximetry Systolic blood pressure Diastolic blood pressure Provider Name and Address Organization Details Last Updated DateTime 4 98 [degF] 20 /min 13270.9 04 g 92 /min 96 % 96 % 175 mm[Hg] 92 mm[Hg] Not Available [facility] 4 14:54:20 Date Recorded Body temperature Heart rate Oxygen saturation Oxygen saturation in Arterial blood by Pulse oximetry Respiratory rate Systolic blood pressure Diastolic blood pressure Provider Name and Address Organization Details Last Updated DateTime 2 98 [degF] 92 /min 97 % 97 % 18 /min 111 mm[Hg] 73 mm[Hg] Not Available [facility] 2 18:51:50 Social History None recorded. Functional [...] 1657 Yoandy Bates MD Main - [facility] [address] [place] [phone] 09/23/2021 18:51:47 01/08/2022 15:34:41 Pain in lower limb 45250773 M79.606 Cough 10186224 R05.1 Dizziness [id number] R42 36041 MARBIN GREER MD Main - [facility] [address] [place] [phone] 01/12/2024 16:27:03 01/12/2024 22:17:41 Acute dermatitis [id number] L30.9 01692 Shakira Whitmore MD Main - [facility] [address] [place] [phone] 01/19/2024 14:54:17 01/20/2024 13:26:27 Pain in bilateral legs [id number] 9095379 M79.604 M79.605 Likely osteoarthr itis given her history of sameAdvise d patient and daughter that I cannot completely rule out a DVT based on her exam, I have sent a request to her pediatric acute care unit nurse to work with the PCP to schedule [...] Wong Member ID Guarantor Name 09/23/2021 1 [facility] - DOS PRIOR TO 2022 - DUAL ELIGIBLE (MEDICARE REPLACEMENT/AD VANTAGE - HMO) Mercedes Og [id number] Mercedes Og 01/12/2024 1 [facility] - DOS ON OR AFTER 2022 - DUAL ELIGIBLE - HALFWAY OPTIONS AND ONE CARE (MEDICARE REPLACEMENT/AD VANTAGE - HMO) Mercedes Og [id number] Mercedes Og 01/19/2024 1 [facility] - DOS ON OR AFTER 2022 - DUAL ELIGIBLE - HALFWAY OPTIONS AND ONE CARE (MEDICARE REPLACEMENT/AD VANTAGE - HMO) Mercedes Og [id number] Mercedes Og Notes Date Note Type Note Provider Name and Address Organization Details Recorded Time 09/23/2021 text/html HPI: NKA Pt Hx of hypertension and DM, Hx of TIA now with complaints of: Pt reports dizziness, loss of appetite, ankle/foot edema, nasal congestion. Neg for Covid 09/21 .................. .................. .................. .................. .................. .................. .................. ............... Regional Wildlife Agent Note: Sent to evaluate pt with poly [...] normal output. Rapid covid test negative. Consulted [facility] who recommended that pt leave legs elevated when pt is at rest and this medic assisted by placing pillow under legs. [facility] recommends pt take APAP TID while symptomatic. Pt stated to [facility] that her symptoms have been slowly improving. [facility] will assist pt with getting urgent visit with PCP, as pt would rather not go to ER. Went over red flags and no further questions or concerns at this time. .................. .................. .................. .................. .................. .................. .................. ............... Disposition: Fulfilled Yoandy Bates MD [address] [place] [address],[address], [place], [phone], [employer] 09/23/2021 18:57:08 01/12/2024 text/html HPI: Pt was [...] .................. .................. .................. .................. .................. .................. ............... Regional Wildlife Agent Note From Son Yusuf: Pt co rash [...] .................. ............... Disposition: Fulfilled MARBIN GREER MD [address] [place] [address],[address], [place], [phone], [employer] 01/12/2024 19:09:36 01/19/2024 text/html HPI: Member's daughter/ EC Sharno called into the CRU asking if someone [...] be present to translate as Mercedes is Portuguese speaking. .................. .................. .................. .................. .................. .................. .................. ............... [facility] Nurse Triage Notes (Maday Lindsey): Chief Complaints: Pain PMH: Hypertension, Diabetes, COPD/Asthma Comments: Reviewed HPI- no further info needed.Hpatterson RNPlease review allergies w/ member/unknown. Regional Wildlife Agent Organization Information for [employer] Legal Name: [employer] Address: [address] [place] [address], [employer] Special Education Teacher: Tye MACIAS No.: [id number] Regional Wildlife Agent POC Test Results from [facility] - [facility] Blood Glucose Measurement (14:40:43) Blood Glucose: 115 mg/dL iSTAT Chem8+ (15:14:18) Na: 140 mEq/L K: 3.7 mEq/L Cl: 99 mEq/L iCa: 1.16 mmol/L TCO2: 28 mmol/L Glu: 116 mg/dL BUN: 11 mg/dL Crea: 0.6 mg/dL Hct: 43 % Hb: 14.6 g/dL A .................. .................. .................. .................. .................. .................. .................. ............... Regional Wildlife Agent Note From [employer]: Pt found in residence lying supine on couch legs slightly elevated with pillow, CAOX4 Portuguese speaking only. Pt daughter on scene able [...] pain, pedal pulses found, no numbness noted. [facility] contacted and Providers directed to assess pt legs for DVT, no findings noted. [facility] directed providers to perform Daniel test for DVT, C directing providers on how to perform. Test result negative. [facility] advised providers to alert pt of possibility of blood clot that is undetected at this time, C sending note to PCP to assess pt legs with ultrasound. [facility] directed providers to give 1G tylenol PO and to draw labs assessing for kidney function. Labs drawn and provided to [facility], [facility] directing 15 mg Toradol to be administered IM for one time pain dose. Provider went over red flags with pt and directed pt to take home prescribed tylenol as directed per direction of [facility]. Providers alerted pt and daughter to call 911 and be transported to the hospital for any change in leg condition, including cold ble legs or severe localized pain in legs. Providers then left scene. [facility] Lab Orders: glucose, fingerstick, blood: Performed .................. [...] and topical salve. Shakira Whitmore MD [address] [facility],[address], [place], [address], [employer] 01/19/2024 23:29:46 OBGyn Episode No OBEpisode recorded.
--- OUTSIDE RECORDS SUMMARY | 2024-05-29 15:05 | XMS_ITS | Encounter Summary ---
Author Organization [employer] Address 75 [facility] 7t [place] [address] Care Team Providers Care Mobile Home Lot Utility Worker Name Role Phone Abelino Montenegro MD Primary Care Provide r Reason for Visit * Reason Comments Med Refill Encounter Details Date Type Department Care Team ([facility] st Contact Info) Description 04/26/2023 Refill [facility] [address] [place] [address] Abelino Montenegro MD [address] [place] [address] Social History Tobacco Use Types Packs/Day Years [...] documented as of this encounter Care Teams Mobile Home Lot Utility Worker Relationship Specialty Start Date End Date Abelino Montenegro MD [address] [place] [address] PCP - General Internal Medicine 03/10/21 documented as of this encounter
--- OUTSIDE RECORDS SUMMARY | 2024-05-29 15:05 | XMS_ITS | Encounter Summary ---
Author Organization [employer] Address [address] [facility] [address] [place] [address] Care Team Providers Care Filament Cutter Name Role Phone Abelino Montenegro MD Primary Care Provide r Encounter Details Date Type Department Care Team (Late st Contact Info) Description 09/01/2023 Orders Only [facility] MEDICINE [address] [place] [address] ProviderHans MD Social History Tobacco Use Types Packs/Day Years [...] on file documented as of this encounter Procedures Procedure Name Priority Date/Time Associated Diagnosis Comments HM COLONOSCOPY Routine 09/03/2021 8:02 AM EDT documented in this encounter Results * Hm Colonoscopy (09/03/2021 8:02 AM EDT) Historical Provider HEALTH MAINTENANCE Final Result documented in this encounter Visit Diagnoses Not on filedocumented in this encounter Additional Health Concerns Assessment Noted Time PHQ-9 Depression Total Score: 0 09/02/19 23 11:43 AM EDT documented as of this encounter Care Teams Filament Cutter Relationship Specialty Start Date End Date Abelino Montenegro MD [address] [place] [address] PCP - General Internal Medicine 03/10/21 documented as of this encounter
--- OUTSIDE RECORDS SUMMARY | 2024-05-29 15:05 | XMS_ITS | Encounter Summary ---
Author Organization [employer] Address [address] [place] [address] 7t [place] [address] Care Team Providers Care C2 Tactical Analysis Technician Name Role Phone Abelino Montenegro MD Primary Care Provide r Reason for Visit * Reason Onset Date Comments Durable Medical Equipment 08/11/2022 Encounter Details Date Type Department Care Team (Late st Contact Info) Description 08/11/2022 Telephone [facility] MEDICINE [address] [place] [address] Abelino Montenegro MD [address] [place] [address] Durable Medical Equipment Social History Tobacco Use Types Packs/Day Years [...] encounter Miscellaneous Notes * Telephone Encounter - Pooja Pineda - 08/25/2022 3:05 PM EDT PT walked in requesting to see DR. Morel for hygenine [facility], [facility] etc[facility] E.C * Telephone Encounter - Lurdes Gallagher - 08/11/2022 2:58 PM EDT Faxed forms again to [facility] they were faxed previously on 07/23/22 * Telephone Encounter - Bin Velazqueza - 08/11/2022 11:11 AM EDT Tc from pt requesting a new script for gloves and wipes to be sent to [facility]. Please contact at [phone] Bengali documented in this encounter Plan of Treatment Not on file documented as of this encounter Visit Diagnoses Not on filedocumented in this encounter Additional Health Concerns Assessment Noted Time PHQ-9 Depression Total Score: 0 06/29/19 23 1:07 PM EST documented as of this encounter Care Teams C2 Tactical Analysis Technician Relationship Specialty Start Date End Date Abelino Montenegro MD [address] [place] [address] PCP - General Internal Medicine 03/10/21 documented as of this encounter
--- OUTSIDE RECORDS SUMMARY | 2024-05-29 15:05 | XMS_ITS | Encounter Summary ---
Author Organization [employer] Address 75 [facility] [address]t [place] [address] Care Team Providers Care Coater Helper Name Role Phone Abelino Montenegro MD Primary Care Provide r Reason for Visit * Reason Comments Med Refill Encounter Details Date Type Department Care Team ([facility] st Contact Info) Description 03/20/2023 Refill [facility] MED[facility]INE [address] [place] [address] Abelino Montenegro MD [address] [place] [address] Acute midline low back pain without sciatica Social History Tobacco Use Types Packs/Day Years [...] as of this encounter Visit Diagnoses Diagnosis Acute midline low back pain without sciatica documented in this encounter Additional Health Concerns Assessment Noted Time PHQ-9 Depression Total Score: 0 09/02/19 23 11:43 AM EDT documented as of this encounter Care Teams Coater Helper Relationship Specialty Start Date End Date Abelino Montenegro MD [address] [place] [address] PCP - General Internal Medicine 03/10/21 documented as of this encounter
--- OUTSIDE RECORDS SUMMARY | 2024-05-29 15:05 | XMS_ITS | Encounter Summary ---
Author Organization [employer] Address 75 [facility] [address]t [place] [address] Care Team Providers Care Whey Department Operator Name Role Phone Abelino Montenegro MD Primary Care Provide r Reason for Visit * Reason Comments Med Refill Encounter Details Date Type Department Care Team ([facility] st Contact Info) Description 03/28/2023 Refill [facility] MEDICINE [address] [place] [address] Abelino Montenegro MD [address] [place] [address] Social History Tobacco Use Types Packs/Day Years [...] documented as of this encounter Care Teams Whey Department Operator Relationship Specialty Start Date End Date Abelino Montenegro MD [address] [place] [address] PCP - General Internal Medicine 03/10/21 documented as of this encounter
--- OUTSIDE RECORDS SUMMARY | 2024-05-29 15:05 | XMS_ITS | Encounter Summary ---
Author Organization [employer] Address 75 [facility] 7t [place] [address] Care Team Providers Care Alterations Manager Name Role Phone Abelino Montenegro MD Primary Care Provide r Reason for Visit * Reason Comments Med Refill Encounter Details Date Type Department Care Team ([facility] st Contact Info) Description 04/05/2023 Refill [facility] MEDICINE [address] [place] [address] Abelino Montenegro MD [address] [place] [address] Social History Tobacco Use Types Packs/Day Years [...] documented as of this encounter Care Teams Alterations Manager Relationship Specialty Start Date End Date Abelino Montenegro MD [address] [place] [address] PCP - General Internal Medicine 03/10/21 documented as of this encounter
--- OUTSIDE RECORDS SUMMARY | 2024-05-29 15:05 | XMS_ITS | Encounter Summary ---
Author Organization [employer] Address 75 [facility] 7t [place] [address] Care Team Providers Care Stores Clerk Name Role Phone Abelino Montenegro MD Primary Care Provide r Reason for Visit * Reason Onset Date Comments Med Refill 02/18/2023 Encounter Details Date Type Department Care Team ([facility] st Contact Info) Description 02/18/2023 Telephone [facility] MEDICINE [address] [place] [address] Abelino Montenegro MD 230 [place] [address] Med Refill Social History Tobacco Use Types [...] encounter Miscellaneous Notes * Telephone Encounter - Nella Benton - 02/18/2023 1:50 PM EDT Tc from pt requesting medication refill on tramadol 50 mg tablet to be sent to [facility]/pharmacy #[id number] [place] [address] documented in this encounter Plan of Treatment Not on file documented as of this encounter Visit Diagnoses Not on filedocumented in this encounter Additional Health Concerns Assessment Noted Time PHQ-9 Depression Total Score: 0 09/02/19 23 11:43 AM EDT documented as of this encounter Care Teams Stores Clerk Relationship Specialty Start Date End Date Abelino Montenegro MD 230 [place] [address] PCP - General Internal Medicine 03/10/21 documented as of this encounter
--- OUTSIDE RECORDS SUMMARY | 2024-05-29 15:05 | XMS_ITS | Encounter Summary ---
Author Organization [employer] Address 75 [facility] 7t [place] [address] Care Team Providers Care Cloth Packer Name Role Phone Abelino Montenegro MD Primary Care Provide r Reason for Visit * Reason Comments Med Refill Encounter Details Date Type Department Care Team ([facility] st Contact Info) Description 03/21/2023 Refill [facility] MEDICINE [address] [place] [address] Abelino Montenegro MD 230 [place] [address] Benign hypertension Social History Tobacco Use Types [...] documented as of this encounter Care Teams Cloth Packer Relationship Specialty Start Date End Date Abelino Montenegro MD [address] [place] [address] PCP - General Internal Medicine 03/10/21 documented as of this encounter
--- OUTSIDE RECORDS SUMMARY | 2024-05-29 15:05 | XMS_ITS | Encounter Summary ---
Author Organization [employer] Address 75 [facility] 7t [place] [address] Care Team Providers Care Roll Contour Grinder Name Role Phone Abelino Montenegro MD Primary Care Provide r Reason for Visit * Reason Onset Date Comments Med Refill 03/11/2023 Encounter Details Date Type Department Care Team ([facility] st Contact Info) Description 03/11/2023 Telephone [facility] MEDICINE [address] [place] [address] Abelino Montenegro MD 230 [place] [address] Med Refill Social History Tobacco Use Types [...] Telephone Encounter - Viv Barnard LPN - 03/11/2023 11:30 AM EDT Medication was sent on 02/17/23 to [facility] for refill. * Telephone Encounter - Chauncey Whitfield - 03/11/2023 11:19 AM EDT Tc from Kandice at [facility] requesting a new script for pregabalin (Lyrica) 100 MG capsulee. documented in this encounter Plan of Treatment Not on file documented as of this encounter Visit Diagnoses Not on filedocumented in this encounter Additional Health Concerns Assessment Noted Time PHQ-9 Depression Total Score: 0 09/02/19 11:43 AM EDT documented as of this encounter Care Teams Roll Contour Grinder Relationship Specialty Start Date End Date Abelino Montenegro MD 230 [place] [address] PCP - General Internal Medicine 03/10/21 documented as of this encounter
== END 2024-05-29 14:13 | disposition home or self-care (01) ==
PROVIDERS: Visit Provider Student in an Organized Health Care Education/Training Program
DX: M17.0 Bilateral primary osteoarthritis of knee (principal)
CPT/HCPCS: 20610; 99213

== ENCOUNTER → 2024-05-29 13:20 | Outpatient (BNVA) | payer OTHER, SELFPAY | PROVIDERS: Visit Provider Student in an Organized Health Care Education/Training Program | DX: M17.0 Bilateral primary osteoarthritis of knee (principal); E11.42 Type 2 diabetes mellitus with diabetic 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 | CPT/HCPCS: 20610; 99212; J7323 ==

== ENCOUNTER 2024-07-03 08:48 | Outpatient (AMB) | payer OTHER, SELFPAY ==
--- NOTE | 2024-07-03 08:50 | A.OFFVIS_ITS ---
Vital Signs 07/03/24 08:55 Height 5 ft 2 in Weight 169 lb 1.513 oz BMI 30.9 BP 112/60 Blood Pressure Location Lt brachial Position Sitting Respiration 16 Pulse 88 Pulse Source Pulse Oximeter Pulse Oximetry (%) 96 Oxygen Delivery Method Room Air Intake Visit Reasons: OA Intake Note: Patient presents for OA. Diesel Pile Hammer Operator Required: Yes Diesel Pile Hammer Operator Language: Implementation Architect Services: Diesel Pile Hammer Operator Offered & Declined Diesel Pile Hammer Operator Name: Ange Cohen Information Interpreted: non-clinical & clinical Hematology Oncology Consultant: Hematology Oncology Consultant Present Accompanied by: DIRECTORY ASSISTANCE OPERATOR Allergies No Known Allergies [No Known Allergies*] Allergy (Verified 07/03/24 08:54) Medication List - Last Reconciled 07/03/24 by Nevin López MD acetaminophen (Tylenol Extra Strength) 500 mg PO QID PRN acetaminophen ER (Mapap Arthritis Pain) 650 mg PO Q12H PRN albuterol sulfate 2.5 mg (3 mL) inhalation TID 30 days albuterol sulfate 90 mcg/actuation (Ventolin HFA) 0 mcg inhalation alcohol swabs (Alcohol Prep Pads) 1 pad topical QID 0 days amlodipine 5 mg PO DAILY aspirin 81 mg PO DAILY blood sugar diagnostic (FreeStyle Lite Strips) test three times a day calcium carbonate 600 mg PO BID 30 days calcium polycarbophil (Fiber-Lax) 1,250 mg (2 x 625 mg) PO BID codeine-guaifenesin 10-100 mg/5 mL 5 mL PO Q6H PRN dulaglutide 1.5 mg (0.5 mL) subcut QWEEK 30 days eluxadoline (Viberzi) 75 mg PO BID empagliflozin-metformin 12.5-1,000 mg (Synjardy) 1 tab PO BID famotidine 40 mg PO QPM fluticasone propionate 220 mcg/actuation (Flovent HFA) 1 puff PO BID 90 days hydrocortisone 1% 1 appl topical BID PRN hydroxyzine HCl 10 mg PO TID PRN 30 days lancets (FreeStyle Lancets) test three times a day lisinopril 30 mg PO DAILY 90 days loratadine 10 mg PO DAILY 90 days meclizine 25 mg PO BID PRN methylcellulose (laxative) (Citrucel) 1,000 mg (2 x 500 mg) PO DAILY 30 days montelukast 10 mg PO DAILY oxybutynin chloride ER 10 mg PO DAILY 90 days pantoprazole 40 mg PO DAILY 90 days prednisone 40 mg (2 x 20 mg) PO DAILY 5 days pregabalin (Lyrica) 100 mg PO BID 90 days simethicone 180 mg PO TID trazodone 25 mg PO BEDTIME PRN venlafaxine ER 37.5 mg PO DAILY HPI Comments Details: Patient is a 73-year-old female with GERD, IBS with diarrhea, 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 At that time patient was complaining of polyarticular joint pain secondary to osteoarthritis. She had failed intra- articular steroids in the past tolerated her 2nd Euflexxa injection and today she is here for her 3rd dose It is delayed due to the last time she was scheduled for an appointment she was not well. No new complaints Rheumatologic History: Polyarthralgias secondary to osteoarthritis Current Rheumatology Medication(s): Pregabalin 100mg bid Topical diclofenac qid PFSH Medical History (Updated 04/18/24 @ 15:32 by Nevin López MD) Polyarticular osteoarthritis Bilateral primary osteoarthritis of knee Bilateral hand pain Epigastric pain Urinary incontinence Asthma Abnormal CT scan Colon cancer screening Pre-op examination Urinary urgency Urinary frequency Cervicalgia Fall Polyarthralgia Mild recurrent major depression Lab test positive for detection of COVID-19 virus Diabetes mellitus Abdominal bloating COVID-19 vaccine series completed Lumbar spondylosis Cervical spondylitis Muscle weakness Dyslipidemia Elevated CPK Osteopenia Diabetic 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 associated with type 2 diabetes mellitus [facility] (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 Diabetes type 2, controlled Urge urinary incontinence Moderate asthma Vertigo Polyarthralgia Depression with anxiety Essential hypertension Surgical History History of surgery on extremity Hx of colonoscopy History of esophagogastroduodenoscopy (EGD) S/P SHERRY-BSO (total abdominal hysterectomy and bilateral salpingo-oophorectomy) History of tubal ligation Family History Father Hypertension Mother Cancer Sister Breast cancer Social History Household Members: Significant Other Housing: House Alcohol intake: never Patient Tobacco Use Status: Never used Tobacco e-Cigarette/Vaping Use: Never Used Second Hand Smoke Exposure: No service: No Current occupational status: disabled Review of Systems Const Details: Review of Systems Constitutional: Denies fever, chills, weight loss ENT: Denies vision changes, eye pain or eye redness, dental caries, dry mouth GI: Denies nausea, vomiting, diarrhea, abdominal pain, change in BM Pulm: Denies SOB, PALMER, hemoptysis, wheezing Cards: Denies chest pain, palpitations Skin: Denies Raynaud's, rash, nail changes, photosensitivity, STOCK GRADER: Denies headaches, weakness, paresthesias, recurrent falls MSK: as per HPI All other systems reviewed and are unremarkable except noted above Physical Exam Vital Signs: Last Vital Signs Pulse 88 07/03/24 08:55 Resp 16 07/03/24 08:55 BP 112/60 07/03/24 08:55 Pulse Ox 96 07/03/24 08:55 Oxygen Delivery Method Room Air 07/03/24 08:55 BMI result Body Mass Index 30.9 Vital signs reviewed. Constitutional: Non-toxic appearing. No acute distress. Well-developed and well-nourished. Skin: Warm and dry. No rashes or lesions noted. Neck: Full and painless range of motion. No cervical lymphadenopathy. Cardio: Regular rate and rhythm. No murmurs, gallops, or rubs. No lower extremity edema. No JVD. Pulmonary: No respiratory distress. No accessory muscle usage. Neuro: Alert and oriented x4. EXTREMITIES: No edema, no calf tenderness, normal peripheral pulses. JOINT EXAM:? Hands: LEFT: Normal pain-free range of motion without tenderness, swelling, increased warmth or erythema over the joints. Able to make a full fist and has a good wireless technician strength. Wide spread diffuse mild tenderness reported to palpation throughout the hand and over the forearm. RIGHT: Normal pain-free range of motion without tenderness, swelling, increased warmth or erythema over the joint. Able to make a full fist and has a good wireless technician strength. Flexion deformity 5th DIP. Widespread diffuse mild tenderness reported to palpation throughout the hand over the forearm. Wrists:? Normal pain-free range of motion without tenderness, swelling, increased warmth or erythema. Elbows:Normal pain-free range of motion without tenderness, swelling, increased warmth or erythema. Shoulders:? Has full active range of motion to bilateral shoulders but does note pain at the extreme of the range of motion. Tenderness to palpation of the AC joint bilaterally Knees:?? Full range of motion bilaterally. Bilateral crepitations noted. Trace effusion to the left knee. Right knee without effusion. Tender points: Tenderness to digital palpation at the occiput, trapezius, second rib, lateral epicondyle, knees, greater trochanter and gluteal area bilaterally. Office Procedures AMB Joint Injection/Aspiration Joint Injection/Aspiration Details: Procedure was explained to the patient and consent was obtained. ? The area of interest was identified and confirmed with patient. ?This was subsequently cleaned with chlorhexidine x3. ? The area was then anesthetized using ethyl chloride spray. 2cc Euflexxa was injected without issue. ?Minimal to no bleeding. ?Patient tolerated procedure. Primary Site: right knee Prep: site was prepped using aseptic technique and ethochloride spray was applied Injected: other Approach Used: anterior Procedure: The patient tolerated the procedure well Coding 88418 - Large joint Procedure code (CPT) selection complete AMB Joint Injection/Aspiration Joint Injection/Aspiration Details: Procedure was explained to the patient and consent was obtained. ? The area of interest was identified and confirmed with patient. ?This was subsequently cleaned with chlorhexidine x3. ? The area was then anesthetized using ethyl chloride spray. 2 cc Euflexxa was injected without issue. ?Minimal to no bleeding. ?Patient to lerated procedure. Primary Site: left knee Prep: site was prepped using aseptic technique and ethochloride spray was applied Injected: other Approach Used: anterior Procedure: The patient tolerated the procedure well Coding 75579 - Large joint Procedure code (CPT) selection complete Office Meds Euflexxa 10 mg/mL (mw 2.4-3.6 million) intra-articular syringe Performing Provider: Nevin López MD Performing Location: [facility] Rheumatology Administered by: Nevin López MD on 07/03/24 09:48 Dose Route Admin Location Dispensed Lot Number Expiration Date [employer] 20 mg intra-articular right knee 2 mL [id number] 04/07/25 [address]-4 [employer] Euflexxa 10 mg/mL (mw 2.4-3.6 million) intra-articular syringe Performing Provider: Nevin López MD Performing Location: [facility] Rheumatology Administered by: Nevin López MD on 07/03/24 09:48 Dose Route Admin Location Dispensed Lot Number Expiration Date [facility] Super[employer] 20 mg intra-articular left knee 2 mL [id number] 04/07/25 [address]-2 [employer] Results Reviewed Results Reviewed: Laboratory Tests 06/08/21 10/13/23 14:36 11:27 ESR 14 C-Reactive Protein 0.26 ANGE Screen NEGATIVE XR Bilateral Hands 08/07/21 FINDINGS: Right Hand: No periarticular osteopenia or active erosions. Mild osteoarthritis of the interphalangeal joints with narrowing and small marginal osteophytes. Carpal joint spaces are preserved. No acute osseous abnormality. Left Hand: No periarticular osteopenia or erosions. Mild osteoarthritis of the interphalangeal joints with narrowing and small marginal osteophytes. Probable remote, healed fracture of the 3rd metacarpal. Moderate osteoarthritis of the triscaphoid articulation. Assessment & Plan Assessment & Plan (1) Bilateral primary osteoarthritis of knee: Code(s): M17.0 - Bilateral primary osteoarthritis of knee Category: Medical Plan: #Bilateral knee PA Patient with polyarticular OA Failed response to corticosteroid injections Recommended topical diclofenac up to 4 times a day S/p Euflexxa x 3rd dose today Discussed that if the above options fail she will need to see ortho for consideration of joint replacement Plan - RTC 6 months - Continue topical diclofenac Plan I spent 20 minutes reviewing the record and labs, seeing the patient, discussing the treatment plan and documenting in the medical record Orders: Orders AMB Joint Injection/Aspiration Today M17.0 - Bilateral primary osteoarthritis of knee AMB Joint Injection/Aspiration Today M17.0 - Bilateral primary osteoarthritis of knee Medications: New Euflexxa (sodium hyaluronate (viscosup)) 20 mg (2 mL) intra-articular ONCE 2 mL 0RF NS M17.0 - Bilateral primary osteoarthritis of knee Euflexxa (sodium hyaluronate (viscosup)) 20 mg (2 mL) intra-articular ONCE 2 mL 0RF NS M17.0 - Bilateral primary osteoarthritis of knee Coding Level of Care Code Est Pt Level 3 (69244) Diagnoses Bilateral primary osteoarthritis of knee M17.0 CPT Codes Coding - 04006 Large joint: 71508 - Large joint ([id number]) Coding - 08882 Large joint: 81202 - Large joint ([id number])
[2024-07-03 08:55] VITALS: BP 112/60; PULSE 88; RESP 16; O2SAT 96; BMI 30.9
--- OUTSIDE RECORDS SUMMARY | 2024-07-03 09:25 | XMS_ITS | Encounter Summary ---
Author Organization [employer] Address 75 [facility] 7t [place] [address] Care Team Providers Care Retail Analyst Name Role Phone Abelino Montenegro MD Primary Care Provide r Reason for Visit * Reason Comments Med Refill Encounter Details Date Type Department Care Team ([facility] st Contact Info) Description 03/21/[address] [facility] MEDICINE 230 [place] [address] Abelino Montenegro MD 230 [place] [address] Benign hypertension Social History Tobacco Use Types [...] as of this encounter Plan of Treatment Upcoming Encounters Date Type Department Care Team (Late st Contact Info) Description 07/13/2024 1:45 PM EST Office Visit [facility] MEDICINE [address] [place] [phone] Toby Sage MD 230 [place] [address] 09/11/2024 11:15 AM EDT Office Visit [facility] MEDICINE [address] [place] [address] Abelino Montenegro MD [address] [place] [address] documented as of this encounter Visit Diagnoses Diagnosis Benign hypertension Essential hypertension, benign documented in this encounter Additional Health Concerns Assessment Noted Time PHQ-9 Depression Total Score: 0 09/02/19 23 11:43 AM EDT documented as of this encounter Care Teams Retail Analyst Relationship Specialty Start Date End Date Abelino Montenegro MD [address] [place] [address] PCP - General Internal Medicine 03/10/21 documented as of this encounter
--- OUTSIDE RECORDS SUMMARY | 2024-07-03 09:25 | XMS_ITS | Encounter Summary ---
Author Organization [employer] Address 75 [facility] 7t [place] [address] Care Team Providers Care Curb Worker Name Role Phone Abelino Montenegro MD Primary Care Provide r Reason for Visit * Reason Comments Med Refill Encounter Details Date Type Department Care Team ([facility] st Contact Info) Description 03/21/2023 Refill [facility] MEDICINE 230 [place] [address] Debbie aJime MD 230 [place] [address] Gastroesophageal reflux disease without esophagitis Social History [...] Description 07/13/2024 1:45 PM EST Office Visit [facility] MEDICINE [address] [place] [phone] Toby Sage MD [address] [place] [address] 09/11/2024 11:15 AM EDT Office Visit [facility] MEDICINE [address] [place] [address] Abelino Montenegro MD [address] [place] [address] documented as of this encounter Visit Diagnoses Diagnosis Gastroesophageal reflux disease without esophagitis Esophageal reflux documented in this encounter Additional Health Concerns Assessment Noted Time PHQ-9 Depression Total Score: 0 09/02/19 23 11:43 AM EDT documented as of this encounter Care Teams Curb Worker Relationship Specialty Start Date End Date Abelino Montenegro MD [address] [place] [phone] PCP - General Internal Medicine 03/10/21 documented as of this encounter
--- OUTSIDE RECORDS SUMMARY | 2024-07-03 09:25 | XMS_ITS | Encounter Summary ---
Author Organization [employer] Address 75 [facility] 7t [place] [address] Care Team Providers Care Senior Ui Ux Developer Name Role Phone Abelino Montenegro MD Primary Care Provide r Reason for Visit * Reason Comments Med Refill Encounter Details Date Type Department Care Team ([facility] st Contact Info) Description 03/29/2023 Refill [facility] [address] [place], [place] [phone] Abelino Montenegro MD [address] [place] [address] Social History Tobacco Use Types Packs/Day Years [...] Description 07/13/2024 1:45 PM EST Office Visit [facility] MEDICINE [address] [place] [phone] Toby Sage MD [address] [place] [address] 09/11/2024 11:15 AM EDT Office Visit [facility] MED[facility]INE [address] [place] [address] Abelino Montenegro MD [address] [place] [address] documented as of this encounter Visit Diagnoses Not on filedocumented in this encounter Additional Health Concerns Assessment Noted Time PHQ-9 Depression Total Score: 0 09/02/19 23 11:43 AM EDT documented as of this encounter Care Teams Senior Ui Ux Developer Relationship Specialty Start Date End Date Abelino Montenegro MD [address] [place] [phone] PCP - General Internal Medicine 03/10/21 documented as of this encounter
--- OUTSIDE RECORDS SUMMARY | 2024-07-03 09:25 | XMS_ITS | Encounter Summary ---
Author Organization [employer] Address 75 [facility] 7t [place] [address] Care Team Providers Care Centrifugal Machine Tender Name Role Phone Abelino Montenegro MD Primary Care Provide r Reason for Visit * Reason Comments Med Refill Encounter Details Date Type Department Care Team ([facility] st Contact Info) Description 04/26/2023 Refill [facility] MEDICINE 230 [place] [address] Abelino Montenegro MD [address] [place] [address] Social History Tobacco Use Types Packs/Day Years [...] Description 07/13/2024 1:45 PM EST Office Visit [facility] MEDICINE [address] [place] [address] Toby Sage MD [address] [place] [phone] 09/11/2024 11:15 AM EDT Office Visit [facility] MEDICINE [address] [place] [address] Abelino Montenegro MD [address] [place] [address] documented as of this encounter Visit Diagnoses Not on filedocumented in this encounter Additional Health Concerns Assessment Noted Time PHQ-9 Depression Total Score: 0 09/02/19 23 11:43 AM EDT documented as of this encounter Care Teams Centrifugal Machine Tender Relationship Specialty Start Date End Date Abelino Montenegro MD [address] [place] [phone] PCP - General Internal Medicine 03/10/21 documented as of this encounter
--- OUTSIDE RECORDS SUMMARY | 2024-07-03 09:25 | XMS_ITS | Encounter Summary ---
Author Organization [employer] Address 75 [facility] 7t [place] [address] Care Team Providers Care Type Disk Quality Control Supervisor Name Role Phone Abelino Montenegro MD Primary Care Provide r Reason for Visit * Reason Comments Med Refill Encounter Details Date Type Department Care Team ([facility] st Contact Info) Description 04/25/[address] [facility] MEDICINE 230 [place] [address] Abelino Montenegro MD 230 [place] [address] Social History Tobacco Use Types Packs/Day Years [...] 07/13/2024 1:45 PM EST Office Visit [facility] MED[facility]INE [address] [place] [phone] Toby Sage MD [address] [place] [phone] 09/11/2024 11:15 AM EDT Office Visit [facility] MED[facility]INE [address] [place] [address] Abelino Montenegro MD [address] [place] [address] documented as of this encounter Visit Diagnoses Not on filedocumented in this encounter Additional Health Concerns Assessment Noted Time PHQ-9 Depression Total Score: 0 09/02/19 23 11:43 AM EDT documented as of this encounter Care Teams Type Disk Quality Control Supervisor Relationship Specialty Start Date End Date Abelino Montenegro MD [address] [place] [phone] PCP - General Internal Medicine 03/10/21 documented as of this encounter
--- OUTSIDE RECORDS SUMMARY | 2024-07-03 09:25 | XMS_ITS | Encounter Summary ---
Author Organization [employer] Address 75 [facility] 7t [place] [address] Care Team Providers Care Construction Carpenter Name Role Phone Abelino Montenegro MD Primary Care Provide r Reason for Visit * Reason Comments Med Refill Encounter Details Date Type Department Care Team ([facility] st Contact Info) Description 03/28/2023 Refill [facility] MEDICINE [address] [place] [address] Abelino Montenegro MD [address] [place] [address] Social History Tobacco Use Types Packs/Day Years [...] Description 07/13/2024 1:45 PM EST Office Visit [facility] MEDICINE [address] [place] [address] Toby Sage MD [address] [place] [address] 09/11/2024 11:15 AM EDT Office Visit [facility] MEDICINE [address] [place] [address] Abelino Montenegro MD [address] [place] [address] documented as of this encounter Visit Diagnoses Not on filedocumented in this encounter Additional Health Concerns Assessment Noted Time PHQ-9 Depression Total Score: 0 09/02/19 23 11:43 AM EDT documented as of this encounter Care Teams Construction Carpenter Relationship Specialty Start Date End Date Abelino Montenegro MD [address] [place] [address] PCP - General Internal Medicine 03/10/21 documented as of this encounter
--- OUTSIDE RECORDS SUMMARY | 2024-07-03 09:25 | XMS_ITS | Encounter Summary ---
Author Organization [employer] Address 75 [facility] 7t [place] [address] Care Team Providers Care Oil Well Service Operator Name Role Phone Abelino Montenegro MD Primary Care Provide r Reason for Visit * Reason Comments Med Refill Encounter Details Date Type Department Care Team ([facility] st Contact Info) Description 04/05/2023 Refill [facility] MEDICINE 230 [place] [address] Abelino Montenegro MD 230 [place] [address] Social History Tobacco Use Types Packs/Day Years [...] Description 07/13/2024 1:45 PM EST Office Visit [facility] MEDICINE [address] [place] [address] 07409 Toby Sage MD [address] [place] [address] 7[address] 09/11/2024 11:15 AM EDT Office Visit [facility] MEDICINE [address] [place] [address] 71[address] Abelino Montenegro MD [address] [place] [address] 5[address] documented as of this encounter Visit Diagnoses Not on filedocumented in this encounter Additional Health Concerns Assessment Noted Time PHQ-9 Depression Total Score: 0 09/02/19 23 11:43 AM EDT documented as of this encounter Care Teams Oil Well Service Operator Relationship Specialty Start Date End Date Abelino Montenegro MD [address] [place] [address] 76[address] PCP - General Internal Medicine 03/10/21 documented as of this encounter
--- OUTSIDE RECORDS SUMMARY | 2024-07-03 09:26 | XMS_ITS | Encounter Summary ---
Author Organization [employer] [facility] Address [address] [place] [address] 7t [place] [address] Care Team Providers Care Pari Mutuel Clerk Name Role Phone Abelino Montenegro MD Primary Care Provide r Reason for Visit * Reason Comments Med Refill Encounter Details Date Type Department Care Team (Late st Contact Info) Description 02/03/[address] [facility] MEDICINE [address] [place] [address] [phone] Abelino Montenegro MD [address] [place] [address] [phone] Social History Tobacco Use Types Packs/Day Years [...] Description 07/13/2024 1:45 PM EST Office Visit [facility] MEDICINE [address] [place] [address] 58377 Toby Sage MD 230 [place] [address] 09/11/2024 11:15 AM EDT Office Visit [facility] [place], [place] [phone] Abelino Montenegro MD 230 [facility] PerezGreenbeltSaint [place], [place] [phone] documented as of this encounter Visit Diagnoses Not on filedocumented in this encounter Additional Health Concerns Assessment Noted Time PHQ-9 Depression Total Score: 0 09/02/19 23 11:43 AM EDT documented as of this encounter Care Teams Pari Mutuel Clerk Relationship Specialty Start Date End Date Abelino Montenegro MD [facility] [place] [phone] PCP - General Internal Medicine 03/10/21 documented as of this encounter
--- OUTSIDE RECORDS SUMMARY | 2024-07-03 09:26 | XMS_ITS | Encounter Summary ---
Author Organization [employer] Address 75 [facility] 7t [place] [address] Care Team Providers Care Magazine Filler Name Role Phone Abelino Montenegro MD Primary Care Provide r Reason for Visit * Reason Comments Med Refill Encounter Details Date Type Department Care Team ([facility] st Contact Info) Description 03/20/2023 Refill [facility] MEDICINE 230 [place] [address] Abelino Montenegro MD 230 [place] [address] Acute midline low back pain without sciatica [...] [facility] MEDICINE [address] [place] [address] Toby Sage MD [address] [place] [address] 18[address] 09/11/2024 11:15 AM EDT Office Visit [facility] MEDICINE [address] [place] [address] 27886 Abelino Montenegro MD [address] [place] [address] 535[address] documented as of this encounter Visit Diagnoses Diagnosis Acute midline low back pain without sciatica documented in this encounter Additional Health Concerns Assessment Noted Time PHQ-9 Depression Total Score: 0 09/02/19 23 11:43 AM EDT documented as of this encounter Care Teams Magazine Filler Relationship Specialty Start Date End Date Abelino Montenegro MD [address] [place] [address] 97[address] PCP - General Internal Medicine 03/10/21 documented as of this encounter
--- OUTSIDE RECORDS SUMMARY | 2024-07-03 09:26 | XMS_ITS | Encounter Summary ---
Author Organization [employer] [facility] Address [address] [place] [address] 7t [place] [address] Care Team Providers Care Shuttler Name Role Phone Abelino Montenegro MD Primary Care Provide r Reason for Visit * Reason Comments Med Refill Encounter Details Date Type Department Care Team (Late st Contact Info) Description 01/28/2023 Refill [facility] MEDICINE [address] [place] [address] [phone] Abelino Montenegro MD [address] [place] [address] [phone] Social History Tobacco Use Types Packs/Day Years [...] 1:45 PM EST Office Visit [facility] MEDICINE [address] [place] [address] 88018 Toby Sage MD 230 [place] [address] 09/11/2024 11:15 AM EDT Office Visit [facility] [address] [facility] [place] [place] [phone] Abelino Montenegro MD 230 [facility] Perez[place], [place] [phone] documented as of this encounter Visit Diagnoses Not on filedocumented in this encounter Additional Health Concerns Assessment Noted Time PHQ-9 Depression Total Score: 0 09/02/19 23 11:43 AM EDT documented as of this encounter Care Teams Shuttler Relationship Specialty Start Date End Date Abelino Montenegro MD [facility] [place] [phone] PCP - General Internal Medicine 03/10/21 documented as of this encounter
--- OUTSIDE RECORDS SUMMARY | 2024-07-03 09:26 | XMS_ITS | Encounter Summary ---
Author Organization [employer] Address 75 [facility] 7t [place] [address] Care Team Providers Care Legal Technician Name Role Phone Abelino Montenegro MD Primary Care Provide r Encounter Details Date Type Department Care Team (Late st Contact Info) Description 06/14/2022 Orders Only [facility] [address] [place], [place] [phone] Viv Barnard LPN Social History Tobacco Use [...] Description 07/13/2024 1:45 PM EST Office Visit [address] [address] Toby Sage MD [address] [place] [address] 363[address] 09/11/2024 11:15 AM EDT Office Visit [address] [phone] Abelino Montenegro MD [address] [place] [address] [phone] documented as of this encounter Visit Diagnoses Not on filedocumented in this encounter Care Teams Legal Technician Relationship Specialty Start Date End Date Abelino Montenegro MD [address] [place] [address] [phone] PCP - General Internal Medicine 03/10/21 documented as of this encounter
--- OUTSIDE RECORDS SUMMARY | 2024-07-03 09:26 | XMS_ITS | Encounter Summary ---
Author Organization [employer] [facility] Address [address] [place] [address] 7t [place] [address] Care Team Providers Care Export Packer Name Role Phone Abelino Montenegro MD Primary Care Provide r Encounter Details Date Type Department Care Team (Late st Contact Info) Description 06/21/2022 Orders Only [facility] MEDICINE [address] [place] [address] Zully Hallman LPN Social History Tobacco Use [...] Description 07/13/2024 1:45 PM EST Office Visit [address] [address] Toby Sage MD [address] [place] [address] [phone] 09/11/2024 11:15 AM EDT Office Visit [address] [address] Abelino Montenegro MD [address] [place] [address] [phone] documented as of this encounter Visit Diagnoses Not on filedocumented in this encounter Care Teams Export Packer Relationship Specialty Start Date End Date Abelino Montenegro MD [address] [place] [phone] PCP - General Internal Medicine 03/10/21 documented as of this encounter
--- OUTSIDE RECORDS SUMMARY | 2024-07-03 09:26 | XMS_ITS | Encounter Summary ---
Author Organization [employer] Address 75 [facility] 7t [place] [address] Care Team Providers Care Mud Analysis Well Logging Operator Name Role Phone Abelino Montenegro MD Primary Care Provide r Reason for Visit * Reason Onset Date Comments Med Refill 03/11/2023 Encounter Details Date Type Department Care Team ([facility] st Contact Info) Description 03/11/2023 Telephone [facility] MEDICINE 230 [place] [address] Abelino Montenegro MD 230 [place] [address] Med Refill Social History Tobacco Use Types [...] EDT Medication was sent on 02/17/23 to [facility] for refill. * Telephone Encounter - Chauncey Whitfield - 03/11/2023 11:19 AM EDT Tc from Kandice at [facility] requesting a new script for pregabalin (Lyrica) 100 MG capsulee. documented in this encounter Plan of Treatment Upcoming Encounters Date Type Department Care Team (Late st Contact Info) Description 07/13/2024 1:45 PM EST Office Visit [facility] MEDICINE [address] [place] [address] 79008 Toby Sage MD [address] [place] [address] 601[address] 09/11/2024 11:15 AM EDT Office Visit [facility] MEDICINE [address] [place] [address] 8[address] Abelino Montenegro MD [address] [place] [address] [phone] documented as of this encounter Visit Diagnoses Not on filedocumented in this encounter Additional Health Concerns Assessment Noted Time PHQ-9 Depression Total Score: 0 09/02/19 23 11:43 AM EDT documented as of this encounter Care Teams Mud Analysis Well Logging Operator Relationship Specialty Start Date End Date Abelino Montenegro MD 230 [place] [address] PCP - General Internal Medicine 03/10/21 documented as of this encounter
--- OUTSIDE RECORDS SUMMARY | 2024-07-03 09:26 | XMS_ITS | Encounter Summary ---
Author Organization [employer] [facility] Address [address] [place] [address] 7t [place] [address] Care Team Providers Care Offal Worker Name Role Phone Abelino Montenegro MD Primary Care Provide r Reason for Visit * Reason Comments Med Refill Encounter Details Date Type Department Care Team (Late st Contact Info) Description 01/20/2023 Refill [facility] MEDICINE [address] [place] [address] [phone] Abelino Montenegro MD [address] [place] [address] [phone] Social History Tobacco Use Types Packs/Day Years [...] Description 07/13/2024 1:45 PM EST Office Visit [facility] MEDICINE [address] [place] [address] 06756 Toby Sage MD 230 [place] [address] 09/11/2024 11:15 AM EDT Office Visit [facility] 230 [facility] [place], [place] [phone] Abelino Montenegro MD 230 [facility] PerezPhil[place], [place] [phone] documented as of this encounter Visit Diagnoses Not on filedocumented in this encounter Additional Health Concerns Assessment Noted Time PHQ-9 Depression Total Score: 0 09/02/19 23 11:43 AM EDT documented as of this encounter Care Teams Offal Worker Relationship Specialty Start Date End Date Abelino Montenegro MD [facility] [place] [phone] PCP - General Internal Medicine 03/10/21 documented as of this encounter
--- OUTSIDE RECORDS SUMMARY | 2024-07-03 09:26 | XMS_ITS | Encounter Summary ---
Author Organization [employer] Address 75 [facility] 7t [place] [address] Care Team Providers Care Packaging Supervisor Name Role Phone Abelino Montenegro MD Primary Care Provide r Reason for Visit * Reason Comments Med Refill Encounter Details Date Type Department Care Team ([facility] st Contact Info) Description 06/10/2023 Refill [facility] MEDICINE 230 [place] [address] Abelino Montenegro MD 230 [place] [address] Social History Tobacco Use Types Packs/Day Years [...] Description 07/13/2024 1:45 PM EST Office Visit [facility] MEDICINE [address] [place] [address] 28398 Toby Sage MD [address] [place] [address] [phone] 09/11/2024 11:15 AM EDT Office Visit [facility] MEDICINE [address] [place] [address] Abelino Montenegro MD [address] [place] [address] 490[address] documented as of this encounter Visit Diagnoses Not on filedocumented in this encounter Additional Health Concerns Assessment Noted Time PHQ-9 Depression Total Score: 0 09/02/19 23 11:43 AM EDT documented as of this encounter Care Teams Packaging Supervisor Relationship Specialty Start Date End Date Abelino Montenegro MD [address] [place] [address] 13561 PCP - General Internal Medicine 03/10/21 documented as of this encounter
--- OUTSIDE RECORDS SUMMARY | 2024-07-03 09:26 | XMS_ITS | Encounter Summary ---
Author Organization [employer] Address 75 [facility] 7t [place] [address] Care Team Providers Care Braille Translator Name Role Phone Abelino Montenegro MD Primary Care Provide r Reason for Visit * Reason Onset Date Comments Med Refill 02/18/2023 Encounter Details Date Type Department Care Team (Late st Contact Info) Description 02/18/2023 Refill [facility] MEDICINE 230 [place] [address] Abelino Montenegro MD 230 [place] [address] Type 2 diabetes mellitus without complication, with long-term current use of insulin ([facility]) Social History Tobacco Use Types Packs/Day Years [...] 1:45 PM EST Office Visit [facility] MEDICINE [address] [place] [address] 9[address] Toby Sage MD [address] [place] [address] 6[address] 09/11/2024 11:15 AM EDT Office Visit [facility] MEDICINE [address] [place] [address] 97[address] Abelino Montenegro MD [address] [place] [address] 79447 documented as of this encounter Visit Diagnoses Diagnosis Type 2 diabetes mellitus without complication, with long-term current use of insulin ([facility]) documented in this encounter Additional Health Concerns Assessment Noted Time PHQ-9 Depression Total Score: 0 09/02/19 23 11:43 AM EDT documented as of this encounter Care Teams Braille Translator Relationship Specialty Start Date End Date Abelino Montenegro MD [address] [place] [address] PCP - General Internal Medicine 03/10/21 documented as of this encounter
--- OUTSIDE RECORDS SUMMARY | 2024-07-03 09:26 | XMS_ITS | Encounter Summary ---
Author Organization [employer] Address 75 [facility] 7t [place] [address] Care Team Providers Care Supervisor Contact And Service Clerks Name Role Phone Abelino Montenegro MD Primary Care Provide r Reason for Visit * Reason Comments Med Refill Encounter Details Date Type Department Care Team ([facility] st Contact Info) Description 03/04/2023 Refill [facility] MEDICINE 230 [place] [address] Abelino Montenegro MD 230 [place] [address] Social History Tobacco Use Types Packs/Day Years [...] 1:45 PM EST Office Visit [facility] MEDICINE [address] [place] [address] 487[address] Toby Sage MD [address] [place] [address] 264[address] 09/11/2024 11:15 AM EDT Office Visit [facility] MEDICINE [address] [place] [address] 31611 Abelino Montenegro MD [address] [place] [address]83 documented as of this encounter Visit Diagnoses Not on filedocumented in this encounter Additional Health Concerns Assessment Noted Time PHQ-9 Depression Total Score: 0 09/02/19 23 11:43 AM EDT documented as of this encounter Care Teams Supervisor Contact And Service Clerks Relationship Specialty Start Date End Date Abelino Montenegro MD [address] [place] [phone] PCP - General Internal Medicine 03/10/21 documented as of this encounter
--- OUTSIDE RECORDS SUMMARY | 2024-07-03 09:26 | XMS_ITS | Encounter Summary ---
Author Organization [employer] Address 75 [facility] 7t [place] [address] Care Team Providers Care Wood Mechanist Name Role Phone Abelino Montenegro MD Primary Care Provide r Reason for Visit * Reason Onset Date Comments Med Refill 02/18/2023 Encounter Details Date Type Department Care Team ([facility] st Contact Info) Description 02/18/2023 Telephone [facility] MEDICINE 230 [place] [address] Abelino Montenegro MD 230 [place] [address] Med Refill Social History Tobacco Use Types [...] 50 mg tablet to be sent to [facility]/pharmacy #[id number] documented in this encounter Plan of Treatment Upcoming Encounters Date Type Department Care Team (Late st Contact Info) Description 07/13/2024 1:45 PM EST Office Visit [facility] MEDICINE [address] [place] [address] Toby Sage MD [address] [place] [address] 09/11/2024 11:15 AM EDT Office Visit [facility] MEDICINE [address] [place] [address] Abelino Montenegro MD [address] [place] [phone] documented as of this encounter Visit Diagnoses Not on filedocumented in this encounter Additional Health Concerns Assessment Noted Time PHQ-9 Depression Total Score: 0 09/02/19 23 11:43 AM EDT documented as of this encounter Care Teams Wood Mechanist Relationship Specialty Start Date End Date Abelino Montenegro MD [address] [place] [phone] PCP - General Internal Medicine 03/10/21 documented as of this encounter
--- OUTSIDE RECORDS SUMMARY | 2024-07-03 09:26 | XMS_ITS | Encounter Summary ---
Author Organization [employer] Address 75 [facility] 7t [place] [address] Care Team Providers Care Mill Representative Name Role Phone Abelino Montenegro MD Primary Care Provide r Reason for Visit * Reason Comments Med Refill Encounter Details Date Type Department Care Team ([facility] st Contact Info) Description 06/14/2023 Refill [facility] MEDICINE 230 [place] [address] Abelino Montenegro MD 230 [place] [address] Mild intermittent asthma without complication Social History [...] Description 07/13/2024 1:45 PM EST Office Visit [facility] MEDICINE [address] [place] [address] 230[address] Toby Sage MD [address] [place] [address] 09/11/2024 11:15 AM EDT Office Visit [facility] MEDICINE [address] [place] [address] Abelino Montenegro MD [address] [place] [address] documented as of this encounter Visit Diagnoses Diagnosis Mild intermittent asthma without complication documented in this encounter Additional Health Concerns Assessment Noted Time PHQ-9 Depression Total Score: 0 09/02/19 23 11:43 AM EDT documented as of this encounter Care Teams Mill Representative Relationship Specialty Start Date End Date Abelino Montenegro MD [address] [place] [address] PCP - General Internal Medicine 03/10/21 documented as of this encounter
--- OUTSIDE RECORDS SUMMARY | 2024-07-03 09:26 | XMS_ITS | Encounter Summary ---
Author Organization [employer] Address 75 [facility] 7t [place] [address] Care Team Providers Care Credit Negotiator Name Role Phone Abelino Montenegro MD Primary Care Provide r Reason for Visit * Reason Comments Med Refill Encounter Details Date Type Department Care Team ([facility] st Contact Info) Description 05/23/[address] [facility] MEDICINE 230 [place] [address] Abelino Montenegro MD 230 [place] [address] Seasonal allergies; Essential hypertension Social History Tobacco [...] 1:45 PM EST Office Visit [facility] MEDICINE [address] [place] [address] Toby Sage MD [address] [place] [address] 09/11/2024 11:15 AM EDT Office Visit [facility] MEDICINE [address] [place] [address] Abelino Montenegro MD [address] [place] [address] documented as of this encounter Visit Diagnoses Diagnosis Seasonal allergies Allergic rhinitis, cause unspecified Essential hypertension Unspecified essential hypertension documented in this encounter Additional Health Concerns Assessment Noted Time PHQ-9 Depression Total Score: 0 09/02/19 23 11:43 AM EDT documented as of this encounter Care Teams Credit Negotiator Relationship Specialty Start Date End Date Abelino Montenegro MD [address] [place] [address] PCP - General Internal Medicine 03/10/21 documented as of this encounter
--- OUTSIDE RECORDS SUMMARY | 2024-07-03 09:26 | XMS_ITS | Encounter Summary ---
Author Organization [employer] Address 75 [facility] 7t [place] [address] Care Team Providers Care Buyer Name Role Phone Abelino Montenegro MD Primary Care Provide r Reason for Visit * Reason Comments Med Refill Encounter Details Date Type Department Care Team ([facility] st Contact Info) Description 04/14/2023 Refill [facility] MEDICINE 230 [place] [address] Abelino Montenegro MD 230 [place] [address] Social History Tobacco Use Types Packs/Day Years [...] Description 07/13/2024 1:45 PM EST Office Visit [facility] MEDICINE [address] [place] [address] Toby Sage MD [address] [place] [address] [phone] 09/11/2024 11:15 AM EDT Office Visit [facility] MEDICINE [address] [place] [address] Abelino Montenegro MD [address] [place] [phone] documented as of this encounter Visit Diagnoses Not on filedocumented in this encounter Additional Health Concerns Assessment Noted Time PHQ-9 Depression Total Score: 0 09/02/19 23 11:43 AM EDT documented as of this encounter Care Teams Buyer Relationship Specialty Start Date End Date Abelino Montenegro MD [address] [place] [phone] PCP - General Internal Medicine 03/10/21 documented as of this encounter
--- OUTSIDE RECORDS SUMMARY | 2024-07-03 09:26 | XMS_ITS | Clinical Summary ---
Author Organization [employer] Address [address] [place] [address] 7t [place] [address] Care Team Providers Care Infant Childcare Provider Name Role Phone Abelino Montenegro MD Primary Care Provide r Allergies No known active allergies Medications sucralfate (Carafate) 1 g tablet Take 2 g by mouth in the morning. 023 Active traZODone (Desyrel) 50 MG tablet TAKE 1 TABLET BY MOUTH AT BEDTIME FOR INSOMNIA 023 Active venlafaxine XR (Effexor XR) 37.5 MG 24 hr capsule TAKE 1 CAPSULE BY MOUTH ONCE A DAY FOR SYMPTOMS OF DEPRESSION/ANXIET Y. 023 Active traMADol (Ultram) 50 MG tabletIndicatio ns:Acute midline low back pain without sciatica Take 1 tablet (50 mg) by mouth every 12 (twelve) hours if needed for severe pain. 30 tablet 023 Active cyclobenzaprine (Flexeril) 10 MG tablet TAKE 1 TABLET BY MOUTH EVERY 8 HOURS IF NEEDED FOR MUSCLE SPASMS 45 tablet 023 Active simethicone (Simethicone Ultra Strength) 180 MG capsule TAKE 1 CAPSULE BY MOUTH THREE TIMES A DAY 90 capsule 023 Active meclizine (Antivert) 25 MG tablet TAKE 1 TABLET BY ORAL ROUTE 2 TIMES EVERY DAY NEEDED FOR DIZZINESS 30 tablet 024 Active empagliflozin-m etFORMIN (Synjardy) 12.5-1000 MGIndications:T ype 2 diabetes mellitus without complication, with long-term current use of insulin ([facility]) TOME 1 TABLETA POR VIA ORAL DOS VECES AL FREDIS 60 tablet 6 Active lidocaine (Lidoderm) 5 % patch APPLY 1 PATCH TOPICALLY LEAVE ON FOR UP TO 12 HOURS 30 patch 11 Active FreeStyle lancetsIndicati ons:Type 2 diabetes mellitus without complication, without long-term current use of insulin (CMS/HCC) 1 each by Other route every 12 (twelve) hours. 100 each 024 Active albuterol (Ventolin HFA) 108 (90 Base) MCG/ACT inhalerIndicati ons:Mild intermittent asthma without complication INHALE 2 PUFFS BY MOUTH FOUR TIMES A DAY (BULK) 18 g 024 Active insulin pen needle (B-D ULTRAFINE III SHORT PEN) 31G X 8 mm misc USE DIRECTED FOUR TIMES A DAY (BULK) 100 each 024 Active aspirin (Aspirin Low Dose) 81 MG EC tabletIndicatio ns:Type 2 diabetes mellitus without complication, without long-term current use of insulin (CMS/HCC) TAKE ONE TABLET BY MOUTH EVERY DAY 30 tablet Active lisinopril 30 MG tabletIndicatio ns:Benign hypertension TAKE ONE TABLET BY MOUTH EVERY MORNING 30 tablet 024 Active LORazepam (Ativan) 1 MG tablet TAKE ONE TABLET ONE HOUR BEFORE THE PROCEDURE. 024 Active oxybutynin XL (Ditropan-XL) 10 MG 24 hr tablet TAKE 1 TABLET BY MOUTH EVERYDAY AT NOON Active Viberzi 75 MG tablet Active Trulicity 1.5 MG/0.5ML solution pen-injector INJECT 0.5ML SUBCUTANEOUSLY ONCE WEEKLY IN THE ABDOMEN, THIGH, OR UPPER ARM; ROTATING INJECTION SITES (BULK) 2 mL 3 024 Active fluticasone (Flovent) 220 MCG/ACT inhalerIndicati ons:Mild intermittent asthma without complication INHALE 1 PUFF IN THE MORNING AND AT BEDTIME (BULK) 12 g 11 024 Active acetaminophen (Tylenol 8 Hour) 650 MG ER tablet TAKE ONE TABLET BY MOUTH EVERY 8 HOURS NEEDED FOR PAIN (VIAL) 60 tablet 1 024 Active pantoprazole (ProtoNix) 40 MG EC tabletIndicatio ns:Gastroesopha geal reflux disease without esophagitis TOME 1 TABLETA POR VIA ORAL TODOS LOS BOYD 90 tablet 024 Active loratadine (Claritin) 10 MG tabletIndicatio ns:Seasonal allergies TOME TIFFANIE TABLETA TODOS LOS BOYD 90 tablet 1 024 Active triamcinolone (Kenalog) 0.1 % creamIndication s:Dermatitis Apply topically if needed in the morning and at bedtime (pain and swelling). 45 g 2 024 Active glucose blood (FREESTYLE LITE) test stripIndication s:Type 2 diabetes mellitus without complication, without long-term current use of insulin (CMS/HCC),Mild intermittent asthma without complication USE TO TEST BLOOD SUGAR THREE TO FOUR TIMES A DAY (BULK) 100 strip 11 024 Active calcium carbonate 1500 (600 Ca) MG tabletIndicatio ns:Type 2 diabetes mellitus without complication, without long-term current use of insulin (CMS/HCC) TAKE ONE TABLET BY MOUTH TWICE A DAY 60 tablet 5 024 Active pregabalin (Lyrica) 100 MG capsule TAKE ONE CAPSULE BY MOUTH TWICE A DAY 60 capsule 024 Active dextran 70-hypromellose PF (artificial tears) 0.1-0.3 % ophthalmic solutionIndicat ions:Dry eye Administer 1 drop into both eyes if needed in the morning, at noon, and at bedtime for dry eyes. 1 each 3 025 Active diphenoxylate-a tropine (Lomotil) 2.5-0.025 MG tabletIndicatio ns:Diarrhea, unspecified type TAKE 1 TABLET BY MOUTH IF NEEDED IN THE MORNING AND AT BEDTIME FOR DIARRHEA. 10 tablet 025 Active Diclofenac Sodium 1 % gelIndications: Acute midline low back pain without sciatica APPLY TO BACK TWICE DAILY 100 g 1 025 Active Trulicity 1.5 MG/0.5ML solution auto-injector INJECT 0.5 ML SUBCUTANEOUSLY ONCE WEEKLY IN THE ABDOMEN, THIGH, OR OUTER UPPER ARM. ROTATE INJECTION SITES. 2 mL 3 025 Active albuterol (2.5 MG/3ML) 0.083% nebulizer solutionIndicat ions:Mild intermittent asthma without complication INHALE 1 VIAL VIA NEBULIZER FRANCINE TRENT FREDIS 90 mL 3 025 Active montelukast (Singulair) 10 MG tabletIndicatio ns:Seasonal allergies TAKE 1 TABLET BY MOUTH EVERY EVENING 90 tablet 1 025 Active Alcohol Swabs (Alcohol Prep) 70 % pads USE FOUR TIMES A DAY 100 each 5 025 Active amLODIPine (Norvasc) 5 MG tabletIndicatio ns:Essential hypertension TAKE 1 TABLET BY MOUTH EVERY DAY 90 tablet 1 025 Active calamine lotion APPLY TOPICALLY IF NEEDED FOR ITCHING. 118 mL 025 Active diphenhydrAMINE (BENADryl) 25 MG tabletIndicatio ns:Urticarial rash TAKE 1 CAPSULE BY MOUTH EVERY 8 HOURS IF NEEDED FOR ITCHING OR ALLERGIES 30 tablet 1 025 Active amLODIPine (Norvasc) 5 MG tabletIndicatio ns:Essential hypertension TAKE ONE TABLET BY MOUTH EVERY MORNING ^1R1 30 tablet 11 024 2024 Discontinued montelukast (Singulair) 10 MG tabletIndicatio ns:Seasonal allergies TAKE ONE TABLET BY MOUTH AT BEDTIME ^1R4 30 tablet 11 024 2024 Discontinued Alcohol Swabs (Alcohol Prep) 70 % pads USE FOUR TIMES A DAY 100 each 11 024 2024 Discontinued Diclofenac Sodium 1 % gelIndications: Acute midline low back pain without sciatica APPLY TO BACK TWICE DAILY 100 g 1 024 2024 Discontinued diphenhydrAMINE (BENADryl) 25 MG tabletIndicatio ns:Urticarial rash Take 1 tablet (25 mg) by mouth every 8 (eight) hours if needed for itching or allergies. 30 tablet 1 024 2024 Discontinued(R eorder (will not trigger notification to Pharmacy)) calamine lotion Apply topically if needed for itching. 118 mL 024 2024 Discontinued(R eorder (will not trigger notification to Pharmacy)) albuterol (2.5 MG/3ML) 0.083% nebulizer solutionIndicat ions:Mild intermittent asthma without complication INHALE 1 VIAL VIA NEBULIZER THREE TIMES A DAY (BULK) 75 mL 3 024 2024 Discontinued diphenoxylate-a tropine (Lomotil) 2.5-0.025 MG tabletIndicatio ns:Diarrhea, unspecified type TAKE 1 TABLET BY MOUTH IF NEEDED IN THE MORNING AND AT BEDTIME FOR DIARRHEA. 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 2. 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 2. [...] with radiation to both lower extremities intensity 8/ Pt refused PT, has used muscle relaxants and Acetaminophen with a modest response. On previous exam there was evidence of muscle spasm. 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 2. 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 2. [...] Encounters Date Type Department Care Team Description 07/02/2024 Refill [facility] MEDICINE [address] [place] [address] Abelino Montenegro MD Dermatitis; Seasonal allergies 06/12/2024 Refill [facility] WALK-IN CENTER [address] [place] [address] Debbie Tee MD Urticarial rash 06/12/2024 Refill [facility] MEDICINE [address] [place] [address] Abelino Montenegro MD Acute midline low back pain without sciatica; Mild intermittent asthma without complication; Seasonal allergies; Essential hypertension; Urticarial rash 06/08/2024 Refill [facility] MEDICINE [address] [place] [address] Abelino Montenegro MD Diarrhea, unspecified type 05/17/2024 Telephone [facility] MEDICINE [address] [place] [address] Abelino Montenegro MD 05/15/2024 11:30 AM EST Office Visit [facility] MEDICINE [address] [place] [address] Abelino Montenegro MD Forgetfulness (Primary Dx); Type 2 diabetes mellitus without complication, without long-term current use of insulin (CMS/[facility]); Dry eye; Acute cough 05/15/2024 Travel 05/03/2024 Telephone [facility] MEDICINE [address] [place] [address] Abelino Montenegro MD Chart Prep 04/27/2024 Telephone [facility] MEDICINE [address] [place] [address] Abelino Montenegro MD Appointment Request 04/11/2024 Refill [facility] MEDICINE [address] [place] [address] Abelino Montenegro MD Type 2 diabetes mellitus without complication, without long-term current use of insulin (CMS/HCC) from Last 3 Months Immunizations Name Administration [...] 05/15/2024 11:46 AM EST Plan of Treatment Upcoming Encounters Date Type Department Care Team (Late st Contact Info) Description 07/13/2024 1:45 PM EST Office Visit [facility] MEDICINE [address] [place] [phone] Toby Sage MD [address] [place] [phone] 09/11/2024 11:15 AM EDT Office Visit [facility] MEDICINE [address] [place] [address] Abelino Montenegro MD [address] [place] [address] Health Maintenance Due Date Last Done Comments [...] Zoster Vaccines Completed 06/15/2021, 03/31/2021 Pneumococcal Vaccine: 50+ Years Completed 03/22/2022, 04/18/2019, 12/26/2013, Additional history [...] without long-term current use of insulin (CMS/HCC) HEPATITIS C AB W/REFL TO HCV RNA, [...] PM EST Narrative 05/15/2024 1:32 PM EST ?[facility] ?[address] ?[place] [address] ?XRay Report ? Signed ? Patient: Vizcarrondo,Mercedes ?MR#: [id number] ?? [id number] ? : 1950 ?Acct:[id number] ? Age/Sex: 74 / F ?ADM Date: 05/15/24 ? Loc: HO.HHCX ? Attending Dr: Abelino Maddox MD ? Ordering Physician: Abelino Maddox MD ?? Date of Service: 05/15/24 ?? Procedure(s): XR chest 2V ?? Accession Number(s): [id number] ? cc: Abelino Maddox MD ? EXAMINATION: [...] ??Oscar Gimenez MD ??05/15/2024 01:29 PM EST ?? RP ? Dictated By: ?Oscar Gimenez MD ? Signed By: ?<Electronically signed by Oscar Gimenez MD in OV> ?05/15/24 1329 ? DD/ 1302 ? TD/TT: 05/15/24 1315 ? Process Control Tech: ? Procedure Note Donotuseinterpreter, Image - 05/15/[address] [address] XRay Report Signed Patient: Ronnell Foley#: [id number] : 1950cct:[id number] Age/Sex: 74 / FADM Date: 05/15/24 Loc: HO.HHCX Attending Dr: Abelino Maddox MD Ordering Physician: Abelino Maddox MD Date of Service: 05/15/24 Procedure(s): XR chest 2V Accession Number(s): [id number] cc: Abelino Maddox MD EXAMINATION: XR CHEST [...] 05/15/24 1329 DD/ 1302 TD/TT: 05/15/24 1315 Process Control Tech: us Abelino Whitfield MD IMG XR PROCEDURES Fin al Result * POCT Rapid Covid-19 BinaxNOW (05/15/2024 12:48 PM EST) Pathologist [facility] Rapid COVID Ag Negative QC Media Lot # [id number] Lot# Expiration Date 5,026 Swab 05/15/2024 12:4 8 PM EST Abelino Whitfield MD POINT OF CARE TEST EN TER/EDIT ORDERABLES Final Result * POCT Rapid Influenza B HANSON ID NOW (05/15/2024 12:47 PM EST) Influenza B Negative Negative, Indeterminate [facility] QC Media Lot # [id number] [facility] Lot# Expiration Date [facility] Swab 05/15/2024 12:4 7 PM EST Abelino Whitfield MD POINT OF CARE TEST EN TER/EDIT ORDERABLES Final Result Performing Organization Address [facility]/ZIP Co de Phone Number [facility] [address] [place] [phone] * POCT Rapid Influenza A HANSON ID NOW (05/15/2024 12:47 PM EST) Influenza A Negative Negative, Indeterminate [facility] QC Media Lot # [id number] [facility] Lot# Expiration Date [facility] Swab 05/15/2024 12:4 7 PM EST Abelino Whitfield MD POINT OF CARE TEST EN TER/EDIT ORDERABLES Final Result Performing Organization Address City/[facility]/ZIP Co de Phone Number [facility] [address] [place] [phone] * (ABNORMAL) POCT HGB A1C (05/15/2024 12:00 PM EST) Hemoglobin A1C 6.6(A) 4.0 - 6.0 % QC Media Lot # [id number] Lot# Expiration Date Blood 05/15/2024 12:0 0 PM EST Abelino Whitfield MD POINT OF CARE TEST EN TER/EDIT ORDERABLES Final Result * POCT Glucose (05/15/2024 12:00 PM EST) Glucose Blood, POC 112 60 - 200 mg/dL QC Media Lot # [id number] Lot# Expiration Date ,938,[id number] Blood Capillary blood specimen / Unknown 05/15/2024 12:00 PM EST Abelino Whitfield MD POINT OF CARE TEST EN TER/EDIT ORDERABLES Final Result * Hepatitis C Antibody with Reflex to HCV, RNA, Quantitative, Real-Time PCR (02/21/2024 8:25 AM EDT) Pathologist [facility] Hepatitis C Antibody Nonreactive Nonreactive [facility] Comment:Antibodies to HCV no t detected; does not exclude early acuteHCV infection. Blood Venous blood specimen / Unknown 02/21/2024 8:25 AM EDT 02/21/2024 11:11 AM EDT Abelino Whitfield MD LAB BLOOD ORDERABLES Final Result Performing Organization Address City/State/[facility] Co de Phone Number [facility] [address] [place] [address] [phone] * BI Mammogram Screening Tomosynthesis Bilateral (07/21/2023 10:16 AM EDT) Anatomical Region Laterality Modality Breast Bilateral Mammography 07/21/2023 10:1 6 AM EDT Narrative 08/11/2023 8:52 AM EDT ? [facility] [place] ? [address] ?[place] [address] ? Mammography Report ? Signed ? Patient: Vizcarrondo,Mercedes ?MR#: [id number] ? : 1950 ?Acct:[id number] ? Age/Sex: 73 / F ?ADM Date: 03/14/24 ? Loc: HO.MAMMO ? Attending Dr: Abelino Maddox MD ? Ordering Physician: Abelino Maddox MD ?Resu ?? lts: 2Benign Findings ? Date of Service: 07/21/23 ?Follow Up: 1 Year From Orig ?? inal Mammogram ? Procedure(s): MM tomosynthesis screening BI ?? Accession Number(s): [id number] ? cc: Abelino Maddox MD ? EXAMINATION: [...] 0849 ? DD/ 1016 ? TD/TT: ? Process Control Tech: ? Procedure Note Donotuseinterpreter, Image - 08/11/2023 [facility]'s [address] [place] [address] Mammography Report Signed Patient: Ronnell Foley#: [id number] : 1950cct:[id number] Age/Sex: 73 / FADM Date: 07/21/23 Loc: HO.BURAKO Attending Dr: Abelino Maddox MD Ordering Physician: Abelino Maddox MDResu lts: 2Benign Findings Date of Service: 07/21/23Follow Up: 1 Year From Orig [facility] Mammogram Procedure(s): MM tomosynthesis screening BI Accession Number(s): [id number] cc: Abelino Maddox MD EXAMINATION: MM SCREENING [...] in OV> 08/11/23 0849 DD/ 1016 TD/TT: Process Control Tech: us Abelino Whitfield MD IMG BI PROCEDURES Fin al Result * Lipid Panel, Standard (04/13/2022 8:46 AM EST) Cholesterol, Total 138 <200 mg/dL [facility] HDL Cholesterol 56 > OR = 50 mg/dL [facility] Triglycerides 72 <150 mg/dL [facility] LDL Cholesterol 67 mg/dL (calc) [facility] Comment: Reference range: <100 Desirable range <100 mg/dL for primary prevention; ?? <70 mg/dL for patients with CHD or diabetic patients with > or = 2 CHD risk factors. LDL-C is now calculated using the Johnna calculation, which is a validated novel method providing better accuracy than the Friedewald equation in the estimation of LDL-C. Escobar SS et al. CADY. 2013;310(19): 0159-5149 (http://education.ShoutNow/faq/EOR068) Chol/HDLC Ratio 2.5 <5.0 (calc) [facility] Non-HDL Cholesterol 82 <130 mg/dL (calc) [facility] Comment: For patients with diabetes plus 1 major ASCVD risk factor, treating to a non-HDL-C goal of <100 mg/dL (LDL-C of <70 mg/dL) is considered a therapeutic option. 04/13/2022 8:46 AM EST 04/13/2022 8:47 AM EST Narrative [facility] - 04/13/2022 11:31 PM EST FASTING:YES FASTING: YES Abelino Whitfield MD LAB BLOOD ORDERABLES Final Result Performing Organization Address [facility] de Phone Number [facility] [address] [place] [address], [place] [phone] [facility] [address], [place] [address] * Hm Colonoscopy (09/03/2021 8:02 AM EDT) Hans Killian MD HEALTH MAINTENANCE Final Result * ALBUMIN, RANDOM URINE W/CREATININE (03/11/2021 8:33 AM EDT) Microalbumin Urine 2.6 See Note: mg/dL [facility] Comment: Reference Range: ?? Reference Range Not established Microalb/Creat Ratio 22 <30 mcg/mg creat [facility] Comment: ?? The ADA defines [...] Whitfield MD LAB URINE ORDERABLES Final Result Performing Organization Address City/[facility]/ZIP Co de Phone Number [facility] [address] from Last 3 Months or Most Recently Relevant to Health Maintenance Insurance [facility] Care Teams Infant Childcare Provider Relationship Specialty Start Date End Date Abelino Montenegro MD [address] [place] [phone] PCP - General Internal Medicine 03/10/21
--- OUTSIDE RECORDS SUMMARY | 2024-07-03 09:27 | XMS_ITS | Encounter Summary ---
Author Organization [employer] Address [address] [facility] 7t [place] [address] Care Team Providers Care Superintendent Electric Power Name Role Phone Abelino Montenegro MD Primary Care Provide r Reason for Visit * Reason Comments Med Refill Encounter Details Date Type Department Care Team ([facility] st Contact Info) Description 09/14/2023 Refill [facility] MED & PEDS [address] [place], [place] [phone] Abelino Montenegro MD [address] [place] [address] Social History Tobacco Use Types Packs/Day Years [...] Office Visit [facility] MEDICINE [address] [place] [phone] Toby Sage MD [address] [place] [phone] 09/11/2024 11:15 AM EDT Office Visit [facility] MEDICINE [address] [place] [phone] Abelino Montenegro MD [address] [place] [phone] documented as of this encounter Visit Diagnoses Not on filedocumented in this encounter Additional Health Concerns Assessment Noted Time PHQ-9 Depression Total Score: 0 09/02/19 23 11:43 AM EDT documented as of this encounter Care Teams Superintendent Electric Power Relationship Specialty Start Date End Date Abelino Montenegro MD [address] [place] [phone] PCP - General Internal Medicine 03/10/21 documented as of this encounter
--- OUTSIDE RECORDS SUMMARY | 2024-07-03 09:27 | XMS_ITS | Encounter Summary ---
Author Organization [employer] Address [address] [facility] 7t [place] [address] Care Team Providers Care Drapery Hanger Name Role Phone Abelino Montenegro MD Primary Care Provide r Reason for Visit * Reason Comments Med Refill Encounter Details Date Type Department Care Team ([facility] st Contact Info) Description 06/12/2024 Refill [facility] MEDICINE [address] [place] [address] Abelino Montenegro MD [address] [place] [address] Acute midline low back pain without sciatica; Mild intermittent asthma without complication; Seasonal allergies; Essential hypertension; Urticarial rash Social History Tobacco Use Types Packs/Day Years [...] Description 07/13/2024 1:45 PM EST Office Visit [facility] MEDICINE [address] [place] [phone] Toby Sage MD [address] [place] [phone] 09/11/2024 11:15 AM EDT Office Visit [facility] MEDICINE [address] [place] [phone] Abelino Montenegro MD [address] [place] [phone] documented as of this encounter Visit Diagnoses Diagnosis Acute midline low back pain without sciatica Mild intermittent asthma without complication Seasonal allergies Allergic rhinitis, cause unspecified Essential hypertension Unspecified essential hypertension Urticarial rash Unspecified urticaria documented in this encounter Additional Health Concerns Assessment Noted Time PHQ-9 Depression Total Score: 4 11/03/19 24 1:09 PM EDT documented as of this encounter Care Teams Drapery Hanger Relationship Specialty Start Date End Date Abelino Montenegro MD [address] [place] [address] PCP - General Internal Medicine 03/10/21 documented as of this encounter
--- OUTSIDE RECORDS SUMMARY | 2024-07-03 09:27 | XMS_ITS | Encounter Summary ---
Author Organization [employer] Address [address] [facility] [address]t [place] [address] Care Team Providers Care Market Development Analyst Name Role Phone Ableino Montenegro MD Primary Care Provide r Reason for Visit * Reason Comments Med Refill Encounter Details Date Type Department Care Team ([facility] st Contact Info) Description 06/08/2024 Refill [facility] MEDICINE [address] [place] [address] Abelino Montenegro MD [address] [place] [address] Diarrhea, unspecified type Social History Tobacco Use Types Packs/Day Years [...] Description 07/13/2024 1:45 PM EST Office Visit [facility] MEDICINE [address] [place] [phone] Toby Sage MD [address] [place] [phone] 09/11/2024 11:15 AM EDT Office Visit [facility] MEDICINE [address] [place] [phone] Abelino Montenegro MD [address] [place] [phone] documented as of this encounter Visit Diagnoses Diagnosis Diarrhea, unspecified type documented in this encounter Additional Health Concerns Assessment Noted Time PHQ-9 Depression Total Score: 4 11/03/19 24 1:09 PM EDT documented as of this encounter Care Teams Market Development Analyst Relationship Specialty Start Date End Date Abelino Montenegro MD [address] [place] [phone] PCP - General Internal Medicine 03/10/21 documented as of this encounter
--- OUTSIDE RECORDS SUMMARY | 2024-07-03 09:27 | XMS_ITS | Data Portability ---
Author Organization [employer] Address [address] [place] [address] Care Team Providers Care Timber Killer Name Role Phone HIM [facility] OTHER [facility] OTHER Assessment Encounter Date Assessment Date Assessment LastModified by Organization Details LastModified Time 09/23/2021 09/23/2021 I have reviewed and agree with the assessment and plan as documented by the model maker. I provided real-time medical direction for this [...] conducted with the use of professional medical billing coordinator. REQUEST THAT CARE TEAM ATTEMPT TO [...] resolution. If persists, would rec derm referral. [email or web address] Not available 01/12/2024 19:09:28 01/19/2024 01/19/2024 I provided real -time medical direction via phone for this encounter, and was available for additional phone based assistance as needed. I have reviewed and agree with the Assessment and Plan as documented by the Livestock Caretaker. We discussed the diagnostic uncertainty of home [...] to call 911- verbalized understanding of instruction [email or web address] Not available 01/19/2024 15:13:59 Plan of Treatment Reminders Order Date Submit Date Provider Last Modified By Organization Details Last Modified Time Details Appointments None recorded. Lab glucose, fingerstick , blood 2023 024 [email or web address] 0 [facility], [address] [place] [address], [phone], 4 23:29:05 BMP, serum or plasma 2023 024 [email or web address] 0 [facility], [address] [place] [address], [phone], 4 23:29:03 Referral None recorded. Procedures None recorded. Surgeries None recorded. Imaging None recorded. Medication Orders ketorolac 30 mg/mL injection solution 2023 024 [email or web address] 0 [id number], [address] [place], [address], 4 23:29:03 clobetasol 0.05 % topical ointment 2023 024 [id number], [address] [place], [address], 4 17:58:36 Patient TargetsNo targets recorded. Patient InstructionsNo instructions recorded. Reason for Referral None Reported. Results Created Date Observation Date Name Description Value Unit Range Abnormal Flag Note LastModifiedBy Organization Detail LastModifiedTime 01/19/20 24 01/19/2024 gluco se, finge rsmartin k, blood Blood Glucose: mg/dl 115 Not Available [facility] [address] [place] [address], [place], [phone], 01/19/2024 15:14:35 Result Notes None recorded. Medical [...] % topical ointment APLIQUE CAPA JUANCHO EL AREA AFECTADA DOS VECES AL FREDIS active Not Available [...] Details Last Updated DateTime 4 82 /min 66193.9 04 g 98 % 98 % 16 /min 98.2 [degF] 132 mm[Hg] 84 mm[Hg] Not Available [facility] 4 16:27:09 Date Recorded Body temperature Respiratory rate Body weight Heart rate Oxygen saturation Oxygen saturation in Arterial blood by Pulse oximetry Systolic blood pressure Diastolic blood pressure Provider Name and Address Organization Details Last Updated DateTime 4 98 [degF] 20 /min 54866.9 04 g 92 /min 96 % 96 % 175 mm[Hg] 92 mm[Hg] Not Available [facility] 4 14:54:20 Date Recorded Body temperature Heart rate Oxygen saturation Oxygen saturation in Arterial blood by Pulse oximetry Respiratory rate Systolic blood pressure Diastolic blood pressure Provider Name and Address Organization Details Last Updated DateTime 2 98 [degF] 92 /min 97 % 97 % 18 /min 111 mm[Hg] 73 mm[Hg] Not Available [facility] 2 18:51:50 Social History None recorded. Functional [...] 1657 Yoandy Bates MD Main - [facility] [address] [place] [phone] 09/23/2021 18:51:47 01/08/2022 15:34:41 Pain in lower limb 76100305 M79.606 Cough 07262593 R05.1 Dizziness [id number] R42 [id number] MARBIN GREER MD Main - [facility] [address] [place] [phone] 01/12/2024 16:27:03 01/12/2024 22:17:41 Acute dermatitis 21915183 L30.9 [id number] Shakira Whitmore MD Main - [facility] [address] [place] [phone] 0 01/19/2024 14:54:17 01/20/2024 13:26:27 Pain in bilateral legs [id number] 9796692 M79.604 M79.605 Likely osteoarthr itis given her history of sameAdvise d patient and daughter that I cannot completely rule out a DVT based on her exam, I have sent a request to her hearing healthcare practitioner to work with the PCP to schedule [...] Wong Member ID Guarantor Name 09/23/2021 1 [facility] - DOS PRIOR TO 2022 - DUAL ELIGIBLE (MEDICARE REPLACEMENT/AD VANTAGE - HMO) Mercedes Og [id number] Mercedes Og 01/12/2024 1 [facility] - DOS ON OR AFTER 2022 - DUAL ELIGIBLE - CUSTODIAL OPTIONS AND ONE CARE (MEDICARE REPLACEMENT/AD VANTAGE - HMO) Mercedes Og [id number] Mercedes Og 01/19/2024 1 [facility] - DOS ON OR AFTER 2022 - DUAL ELIGIBLE - CUSTODIAL OPTIONS AND ONE CARE (MEDICARE REPLACEMENT/AD VANTAGE - HMO) [employer]s Og [id number] Mercedes Og Notes Date Note Type Note Provider Name and Address Organization Details Recorded Time 09/23/2021 text/html HPI: NKA Pt Hx of hypertension and DM, Hx of TIA now with complaints of: Pt reports dizziness, loss of appetite, ankle/foot edema, nasal congestion. Neg for Covid 09/21 .................. .................. .................. .................. .................. .................. .................. ............... Livestock Caretaker Note: Sent to evaluate pt with poly [...] normal output. Rapid covid test negative. Consulted [facility] who recommended that pt leave legs elevated when pt is at rest and this medic assisted by placing pillow under legs. [facility] recommends pt take APAP TID while symptomatic. Pt stated to [facility] that her symptoms have been slowly improving. [facility] will assist pt with getting urgent visit with PCP, as pt would rather not go to ER. Went over red flags and no further questions or concerns at this time. .................. .................. .................. .................. .................. .................. .................. ............... Disposition: Fulfilled Yoandy Bates MD [address] [place] [address],[address], [place], [phone], [employer] 09/23/2021 18:57:08 01/12/2024 text/html HPI: Pt was [...] of breath. Reviewed HPI- no further info needed.Hpavladimir RN .................. .................. .................. .................. .................. .................. .................. ............... Livestock Caretaker Note From Son Yusuf: Pt co rash [...] .................. ............... Disposition: Fulfilled MARBIN GREER MD [address] [place] [address],[address], [place], [phone], [employer] 01/12/2024 19:09:36 01/19/2024 text/html HPI: Member's daughter/ [...] be present to translate as Mercedes is Urdu speaking. .................. .................. .................. .................. .................. .................. .................. ............... [facility] Nurse Triage Notes (Maday Lindsey): Chief Complaints: Pain PMH: Hypertension, Diabetes, COPD/Asthma Comments: Reviewed HPI- no further info needed.Hpatterson RNPlease review allergies w/ member/unknown. Livestock Caretaker Organization Information for [facility] Legal Name: [id number] [facility] [employer] [employer] Address: [address] [place] [address], Gas Fitter Apprentice: Tye MACIAS No.: [id number] Livestock Caretaker POC Test Results from [facility] - [facility] Blood Glucose Measurement (14:40:43) Blood Glucose: 115 mg/dL iSTAT Chem8+ (15:14:18) Na: 140 mEq/L K: 3.7 mEq/L Cl: 99 mEq/L iCa: 1.16 mmol/L TCO2: 28 mmol/L Glu: 116 mg/dL BUN: 11 mg/dL Crea: 0.6 mg/dL Hct: 43 % Hb: 14.6 g/dL A .................. .................. .................. .................. .................. .................. .................. ............... Livestock Caretaker Note From [facility]: Pt found in residence lying supine on couch legs slightly elevated with pillow, CAOX4 Urdu speaking only. Pt daughter on scene able [...] pain, pedal pulses found, no numbness noted. [facility] contacted and Providers [...] PCP to assess pt legs with ultrasound. [facility] directed providers to give 1G tylenol PO and to draw labs assessing for kidney function. Labs drawn and provided to [facility], [facility] directing 15 mg Toradol to be administered IM for one time pain dose. Provider went over red flags with pt and directed pt to take home prescribed tylenol as directed per direction of [facility]. Providers alerted pt and daughter to call 911 and be transported to the hospital for any change in leg condition, including cold ble legs or severe localized pain in legs. Providers then left scene. [facility] Lab Orders: glucose, [...] and topical salve. Shakira Whitmore MD [address] [facility],[address], [place], [address], SHAYLA - [employer] 01/19/2024 23:29:46 OBGyn Episode No OBEpisode recorded.
--- OUTSIDE RECORDS SUMMARY | 2024-07-03 09:27 | XMS_ITS | Encounter Summary ---
Author Organization [employer] Address [address] [facility] 7t [place] [address] Care Team Providers Care Foxpro Developer Name Role Phone Abelino Montenegro MD Primary Care Provide r Reason for Visit * Reason Comments Med Refill Encounter Details Date Type Department Care Team ([facility] st Contact Info) Description 07/06/2023 Refill [facility] [address] [place] [address] Abelino Montenegro MD [address] [place] [address] Social History Tobacco Use Types Packs/Day Years [...] 1:45 PM EST Office Visit [facility] [address] [place] [address] Toby Sage MD [address] [place] [address] 09/11/2024 11:15 AM EDT Office Visit [facility] [address] [place] [address] Abelino Montenegro MD [address] [place] [address] documented as of this encounter Visit Diagnoses Not on filedocumented in this encounter Additional Health Concerns Assessment Noted Time PHQ-9 Depression Total Score: 0 09/02/19 23 11:43 AM EDT documented as of this encounter Care Teams Foxpro Developer Relationship Specialty Start Date End Date Abelino Montenegro MD [address] [place] [address] PCP - General Internal Medicine 03/10/21 documented as of this encounter
--- OUTSIDE RECORDS SUMMARY | 2024-07-03 09:27 | XMS_ITS | Encounter Summary ---
Author Organization [employer] Address [address] [facility] 7t [place] [address] Care Team Providers Care Manager Adult Name Role Phone Abelino Montenegro MD Primary Care Provide r Reason for Visit * Reason Comments Med Refill Encounter Details Date Type Department Care Team ([facility] st Contact Info) Description 06/12/2024 Refill [facility] [address] [place] [address] Debbie Tee MD [address] [place] [address] Urticarial rash Social History Tobacco Use Types [...] Description 07/13/2024 1:45 PM EST Office Visit [facility] [address] [place] [address] Toby Sage MD [address] [place] [address] 09/11/2024 11:15 AM EDT Office Visit [facility] [address] [place] [address] Abelino Montenegro MD [address] [place] [address] 95[address] documented as of this encounter Visit Diagnoses Diagnosis Urticarial rash Unspecified urticaria documented in this encounter Additional Health Concerns Assessment Noted Time PHQ-9 Depression Total Score: 4 11/03/19 24 1:09 PM EDT documented as of this encounter Care Teams Manager Adult Relationship Specialty Start Date End Date Abelino Montenegro MD [address] [place] [address] 1964[address] PCP - General Internal Medicine 03/10/21 documented as of this encounter
--- OUTSIDE RECORDS SUMMARY | 2024-07-03 09:27 | XMS_ITS | Encounter Summary ---
Author Organization [employer] Address [address] [facility] 7t [place] [address] Care Team Providers Care Director Of Program Management Name Role Phone Abelino Montenegro MD Primary Care Provide r Reason for Visit * Reason Comments Med Refill Encounter Details Date Type Department Care Team ([facility] st Contact Info) Description 07/02/2024 Refill [facility] MED[facility] [address] [place] [address] Abelino Montenegro MD [address] [place] [address] Dermatitis; Seasonal allergies Social History Tobacco Use Types Packs/Day Years [...] Upcoming Encounters Date Type Department Care Team ([facility] st Contact Info) Description 07/13/2024 1:45 PM EST Office Visit [facility]INE [address] [place] [address] Toby Sage MD [address] [place] [address] 768[address] 09/11/2024 11:15 AM EDT Office Visit [facility] [address] [place] [address] 8[address]70 Abelino Montenegro MD [address] [place] [address] 66704 documented as of this encounter Visit Diagnoses Diagnosis Dermatitis Contact dermatitis and other eczema, due to unspecified cause Seasonal allergies Allergic rhinitis, cause unspecified documented in this encounter Additional Health Concerns Assessment Noted Time PHQ-9 Depression Total Score: 4 11/03/19 24 1:09 PM EDT documented as of this encounter Care Teams Director Of Program Management Relationship Specialty Start Date End Date Abelino Montenegro MD [address] [place] [address] [phone] PCP - General Internal Medicine 03/10/21 documented as of this encounter
--- OUTSIDE RECORDS SUMMARY | 2024-07-03 09:27 | XMS_ITS | Encounter Summary ---
Author Organization [employer] Address [address] [facility] 7t [place] [address] Care Team Providers Care Air Pollution Auditor Name Role Phone Abelino Montenegro MD Primary Care Provide r Reason for Visit * Reason Comments Med Refill Encounter Details Date Type Department Care Team ([facility] st Contact Info) Description 09/08/2023 Refill [facility] [address] [place], [place] [phone] Abelino Montenegro MD [address] [place] [address] Social History Tobacco Use Types Packs/Day Years [...] Description 07/13/2024 1:45 PM EST Office Visit [facility] MED[facility]INE [address] [place] [address] 8[address] Toby Sage MD [address] [place] [address] 17283 09/11/2024 11:15 AM EDT Office Visit [facility] [address] [place] [address] Abelino Montenegro MD [address] [place] [address] documented as of this encounter Visit Diagnoses Not on filedocumented in this encounter Additional Health Concerns Assessment Noted Time PHQ-9 Depression Total Score: 0 09/02/19 23 11:43 AM EDT documented as of this encounter Care Teams Air Pollution Auditor Relationship Specialty Start Date End Date Abelino Montenegro MD [address] [place] [address] PCP - General Internal Medicine 03/10/21 documented as of this encounter
--- OUTSIDE RECORDS SUMMARY | 2024-07-03 09:27 | XMS_ITS | Encounter Summary ---
Author Organization [employer] Address [address] [facility] 7t [place] [address] Care Team Providers Care Platform Operations Director Name Role Phone Abelino Montenegro MD Primary Care Provide r Reason for Visit * Reason Comments Med Refill Encounter Details Date Type Department Care Team ([facility] st Contact Info) Description 09/03/2023 Refill [facility] PEDS [address] [place], [place] [phone] Abelino Montenegro MD [address] [place] [address] Social History Tobacco Use Types Packs/Day Years [...] 1:45 PM EST Office Visit [facility] MEDICINE [address] [place] [address] Toby Sage MD [address] [place] [address] 09/11/2024 11:15 AM EDT Office Visit [facility] MEDICINE [address] [place] [address] Abelino Montenegro MD [address] [place] [address] documented as of this encounter Visit Diagnoses Not on filedocumented in this encounter Additional Health Concerns Assessment Noted Time PHQ-9 Depression Total Score: 0 09/02/19 23 11:43 AM EDT documented as of this encounter Care Teams Platform Operations Director Relationship Specialty Start Date End Date Abelino Montenegro MD [address] [place] [address] PCP - General Internal Medicine 03/10/21 documented as of this encounter
--- OUTSIDE RECORDS SUMMARY | 2024-07-03 09:27 | XMS_ITS | Encounter Summary ---
Author Organization [employer] Address [address] [facility] [address] 7t [place] [address] Care Team Providers Care Used Equipment Sales Representative Name Role Phone Abelino Montenegro MD Primary Care Provide r Encounter Details Date Type Department Care Team (Late st Contact Info) Description 09/01/2023 Orders Only [facility] MEDICINE [address] [place] [address] ProviderHans MD Social History Tobacco Use Types [...] Description 07/13/2024 1:45 PM EST Office Visit [facility] MED[facility]INE [address] [place] [address] Toby Sage MD [address] [place] [address] 09/11/2024 11:15 AM EDT Office Visit [facility] MEDICINE [address] [place] [address] Abelino Montenegro MD [address] [place] [address] documented as of this encounter Procedures Procedure [...] documented as of this encounter Care Teams Used Equipment Sales Representative Relationship Specialty Start Date End Date Abelino Montenegro MD [address] [place] [address] PCP - General Internal Medicine 03/10/21 documented as of this encounter
--- OUTSIDE RECORDS SUMMARY | 2024-07-03 09:27 | XMS_ITS | Encounter Summary ---
Author Organization [employer] Address [address] [facility] 7t [place] [address] Care Team Providers Care Gis Technician Name Role Phone Abelino Montenegro MD Primary Care Provide r Reason for Visit * Reason Comments Med Refill Encounter Details Date Type Department Care Team ([facility] st Contact Info) Description 09/17/2023 Refill [facility] MED & PEDS [address] [place], [place] [phone] Abelino Montenegro MD [address] [place] [address] Social History Tobacco Use Types Packs/Day Years [...] Description 07/13/2024 1:45 PM EST Office Visit [facility] MEDICINE [address] [place] [address] Toby Sage MD [address] [place] [address] 218[address] 09/11/2024 11:15 AM EDT Office Visit [facility] MEDICINE [address] [place] [address] Abelino Montenegro MD [address] [place] [address] documented as of this encounter Visit Diagnoses Not on filedocumented in this encounter Additional Health Concerns Assessment Noted Time PHQ-9 Depression Total Score: 0 09/02/19 23 11:43 AM EDT documented as of this encounter Care Teams Gis Technician Relationship Specialty Start Date End Date Abelino Montenegro MD [address] [place] [address]05 PCP - General Internal Medicine 03/10/21 documented as of this encounter
--- OUTSIDE RECORDS SUMMARY | 2024-07-03 09:27 | XMS_ITS | Clinical Summary ---
Author Organization [employer] Address [address] [place] [phone] Care Team Providers Care Senior Living Sales Counselor Name Role Phone Unavailable Primary Care Provider [...] history exists Osteoporosis screening (bone density) 2016 Pneumococcal Vaccine (50+ years) (1 of 1 - PCV) 2016 Influenza [...] Glucose 233(H) 70 - 100 mg/dL [facility] BUN 7 7 - 20 mg/dL [facility] Creatinine 0.6 0.5 - 1.2 mg/dL [facility] BUN/Creatinine Ratio 11.7 10.0 - 20.0 [facility] Anion Gap 11 7 - 16 [facility] CO2 21.8(L) 22.0 - 30.0 mmol/L [facility] Chloride 104 96 - 106 mmol/L [facility] Sodium 137 135 - 145 mmol/L [facility] Potassium 4.3 3.5 - 5.0 mmol/L [facility] Calcium 9.1 8.8 - 10.2 mg/dL [facility] 01/14/2011 3:30 AM EDT us Shakira LEWIS LAB BLOOD ORDERABLES Final Resul t [facility] [address] [place] [address] from Last 3 Months or Most Recently Relevant to Health Maintenance
--- OUTSIDE RECORDS SUMMARY | 2024-07-03 09:27 | XMS_ITS | Encounter Summary ---
Author Organization [employer] Address [address] [facility] 7t [place] [address] Care Team Providers Care Hospice Office Coordinator Name Role Phone Abelino Montenegro MD Primary Care Provide r Reason for Visit * Reason Comments Med Refill Encounter Details Date Type Department Care Team ([facility] st Contact Info) Description 10/20/2023 Refill [facility] MED[facility] [address] [place] [address] Debbie Jaime MD [address] [place] [address] Gastroesophageal reflux disease without esophagitis Social History [...] Description 07/13/2024 1:45 PM EST Office Visit [facility] MED[facility] [address] [place] [address] Toby Sage MD [address] [place] [address] 09/11/2024 11:15 AM EDT Office Visit [facility] [address] [place] [address] Abelino Montenegro MD [address] [place] [address] documented as of this encounter Visit Diagnoses Diagnosis Gastroesophageal reflux disease without esophagitis Esophageal reflux documented in this encounter Additional Health Concerns Assessment Noted Time PHQ-9 Depression Total Score: 0 09/02/19 23 11:43 AM EDT documented as of this encounter Care Teams Hospice Office Coordinator Relationship Specialty Start Date End Date Abelino Montenegro MD [address] [place] [address] PCP - General Internal Medicine 03/10/21 documented as of this encounter
--- OUTSIDE RECORDS SUMMARY | 2024-07-03 09:27 | XMS_ITS | Encounter Summary ---
Author Organization [employer] Address [address] [facility] 7t [place] [address] Care Team Providers Care Employee Adviser Name Role Phone Abelino Montenegro MD Primary Care Provide r Reason for Visit * Reason Comments Med Refill Encounter Details Date Type Department Care Team ([facility] st Contact Info) Description 06/17/2023 Refill [facility] MEDICINE [address] [place] [address] Abelino Montenegro MD [address] [place] [address] Social History Tobacco Use Types Packs/Day Years [...] Description 07/13/2024 1:45 PM EST Office Visit [facility] MEDICINE [address] [place] [address] Toby Sage MD [address] [place] [address] 09/11/2024 11:15 AM EDT Office Visit [facility] MED[facility] [address] [place] [address] Abelino Montenegro MD [address] [place] [address] 08752 documented as of this encounter Visit Diagnoses Not on filedocumented in this encounter Additional Health Concerns Assessment Noted Time PHQ-9 Depression Total Score: 0 09/02/19 23 11:43 AM EDT documented as of this encounter Care Teams Employee Adviser Relationship Specialty Start Date End Date Abelino Montenegro MD [address] [place] [address] PCP - General Internal Medicine 03/10/21 documented as of this encounter
--- OUTSIDE RECORDS SUMMARY | 2024-07-03 09:27 | XMS_ITS | Encounter Summary ---
Author Organization [employer] Address 75 [facility] 7t [place] [address] Care Team Providers Care Electric Motor Tester Assembler Name Role Phone Abelino Montenegro MD Primary Care Provide r Reason for Visit * Reason Comments Med Refill Encounter Details Date Type Department Care Team ([facility] st Contact Info) Description 07/26/[address] [facility] MEDICINE 230 [place] [address] Abelino Montenegro MD 230 [place] [address] Social History Tobacco Use Types Packs/Day Years [...] 07/13/2024 1:45 PM EST Office Visit [facility] MEDICINE [address] [place] [address] 8[address]21 Toby Sage MD [address] [place] [address] 09/11/2024 11:15 AM EDT Office Visit [facility] MED[facility]INE [address] [place] [address] 16211 Abelino Montenegro MD [address] [place] [address] documented as of this encounter Visit Diagnoses Not on filedocumented in this encounter Additional Health Concerns Assessment Noted Time PHQ-9 Depression Total Score: 0 09/02/19 23 11:43 AM EDT documented as of this encounter Care Teams Electric Motor Tester Assembler Relationship Specialty Start Date End Date Abelino Montenegro MD [address] [place] [address]157 PCP - General Internal Medicine 03/10/21 documented as of this encounter
--- OUTSIDE RECORDS SUMMARY | 2024-07-03 09:28 | XMS_ITS | Encounter Summary ---
Author Organization [employer] Address 75 [facility] 7t [place] [address] Care Team Providers Care Apartment Rental Agent Name Role Phone Abelino Montenegro MD Primary Care Provide r Reason for Visit * Reason Comments Med Refill Encounter Details Date Type Department Care Team ([facility] st Contact Info) Description 12/15/2023 Refill [facility] MED & PEDS [address] [place], [place] [phone] Abelino Montenegro MD 230 [place] [address] Type 2 diabetes mellitus without complication, without long-term current use of insulin ([facility]) Social History Tobacco Use Types Packs/Day [...] Description 07/13/2024 1:45 PM EST Office Visit [facility] MEDICINE [address] [place] [address] Toby Sage MD [address] [place] [address] 96221 09/11/2024 11:15 AM EDT Office Visit [facility] MED[facility]INE [address] [place] [address] 76[address] Abelino Montenegro MD [address] [place] [address] 9[address] documented as of this encounter Visit Diagnoses Diagnosis Type 2 diabetes mellitus without complication, without long-term current use of insulin ([facility]) documented in this encounter Additional Health Concerns Assessment Noted Time PHQ-9 Depression Total Score: 4 11/03/19 24 1:09 PM EDT documented as of this encounter Care Teams Apartment Rental Agent Relationship Specialty Start Date End Date Abelino Montenegro MD [address] [place] [address]134 PCP - General Internal Medicine 03/10/21 documented as of this encounter
--- OUTSIDE RECORDS SUMMARY | 2024-07-03 09:28 | XMS_ITS | Encounter Summary ---
Author Organization [employer] Address 75 [facility] 7t [place] [address] Care Team Providers Care Loading Unit Operator Powder Charging Name Role Phone Abelino Montenegro MD Primary Care Provide r Reason for Visit * Reason Comments Med Refill Encounter Details Date Type Department Care Team ([facility] st Contact Info) Description 10/25/2023 Refill [facility] MEDICINE 230 [place] [address] Debbie Jaime MD 230 [place] [address] Gastroesophageal reflux disease without esophagitis Social History [...] Description 07/13/2024 1:45 PM EST Office Visit [facility] MED[facility]INE [address] [place] [address] 26210 Toby Sage MD [address] [place] [address] 625[address] 09/11/2024 11:15 AM EDT Office Visit [facility] [address] [place] [address] 9[address] Abelino Montenegro MD [address] [place] [address] 6[address] documented as of this encounter Visit Diagnoses Diagnosis Gastroesophageal reflux disease without esophagitis Esophageal reflux documented in this encounter Additional Health Concerns Assessment Noted Time PHQ-9 Depression Total Score: 0 09/02/19 23 11:43 AM EDT documented as of this encounter Care Teams Loading Unit Operator Powder Charging Relationship Specialty Start Date End Date Abelino Montenegro MD [address] [place] [address] [phone] PCP - General Internal Medicine 03/10/21 documented as of this encounter
--- OUTSIDE RECORDS SUMMARY | 2024-07-03 09:28 | XMS_ITS | Encounter Summary ---
Author Organization [employer] Address 75 [facility] [address] 7t [place] [address] Care Team Providers Care Marine Meteorologist Name Role Phone Abelino Montenegro MD Primary Care Provide r Reason for Visit * Reason Comments Med Refill Encounter Details Date Type Department Care Team ([facility] st Contact Info) Description 01/18/2024 Refill [facility] CH[facility] MED & PEDS [address] [place], [place] [phone] Abelino Montenegro MD 230 [place] [address] Social History Tobacco Use Types Packs/Day Years [...] 1:45 PM EST Office Visit [facility] MEDICINE [address] [place] [address] 72026 Toby Sage MD [address] [place] [address] 22599 09/11/2024 11:15 AM EDT Office Visit [address] [address] Abelino Montenegro MD [address] [place] [address] 0[address] documented as of this encounter Visit Diagnoses Not on filedocumented in this encounter Additional Health Concerns Assessment Noted Time PHQ-9 Depression Total Score: 4 11/03/19 24 1:09 PM EDT documented as of this encounter Care Teams Marine Meteorologist Relationship Specialty Start Date End Date Abelino Montenegro MD [address] [place] [address] PCP - General Internal Medicine 03/10/21 documented as of this encounter
--- OUTSIDE RECORDS SUMMARY | 2024-07-03 09:28 | XMS_ITS | Encounter Summary ---
Author Organization [facility] Address 75 [facility] 7t [place] [address] Care Team Providers Care Foam Caster Name Role Phone Abelino Montenegro MD Primary Care Provide r Encounter Details Date Type Department Care Team (Late Contact Info) Description 09/16/[address] [facility] MEDICINE [address] [place] [address] 8[address] Abelino Montenegro MD [address] [place] [address] 280[address] Social History Tobacco Use Types Packs/Day Years [...] [facility] MEDICINE [address] [place], [place] [address] [place] [address] Toby Sage MD 230 [facility] [place] [phone] 09/11/2024 11:15 AM EDT Office Visit [facility] MED[facility]INE 230 [facility] [place] [phone] Abelino Montenegro MD 230 [facility] [place], [place] [phone] documented as of this encounter Visit Diagnoses Not on filedocumented in this encounter Additional Health Concerns Assessment Noted Time PHQ-9 Depression Total Score: 0 09/02/19 23 11:43 AM EDT documented as of this encounter Care Teams Foam Caster Relationship Specialty Start Date End Date Abelino Monetnegro MD [facility] [place], [place] [phone] PCP - General Internal Medicine 03/10/21 documented as of this encounter
--- OUTSIDE RECORDS SUMMARY | 2024-07-03 09:28 | XMS_ITS | Encounter Summary ---
Author Organization [employer] [facility] Address 75 [facility] 7t [place] [address] Care Team Providers Care Database Support Name Role Phone Abelino Montenegro MD Primary Care Provide r Reason for Visit * Reason Comments Med Refill Encounter Details Date Type Department Care Team (Late Contact Info) Description 10/08/2022 Refill [facility] MED[facility] 230 [place] [address] Abelino Montenegro MD 230 [place] [address] Social History Tobacco Use Types Packs/Day Years [...] Encounters Date Type Department Care Team (Late Contact Info) Description 07/13/2024 1:45 PM EST Office Visit [facility] [place] [address] [place] [address] 09/11/2024 11:15 AM EDT Office Visit [facility] [place] [address] Abel[place] [address] documented as of this encounter Visit Diagnoses Not on filedocumented in this encounter Additional Health Concerns Assessment Noted Time PHQ-9 Depression Total Score: 0 09/02/19 23 11:43 AM EDT documented as of this encounter Care Teams Database Support Relationship Specialty Start Date End Date Abelino Montenegro MD [facility] [place] [address] PCP - General Internal Medicine 03/10/21 documented as of this encounter
--- OUTSIDE RECORDS SUMMARY | 2024-07-03 09:28 | XMS_ITS | Encounter Summary ---
Author Organization [employer] Address 75 [facility] 7t [place] [address] Care Team Providers Care Senior Analytic Consultant Name Role Phone Abelino Montenegro MD Primary Care Provide r Reason for Visit * Reason Comments Med Refill Encounter Details Date Type Department Care Team ([facility] st Contact Info) Description 11/03/2023 Refill [facility] MEDICINE 230 [place] [address] Debbie Jaime MD 230 [place] [address] Gastroesophageal reflux disease without esophagitis Social History [...] Description 07/13/2024 1:45 PM EST Office Visit [facility] MEDICINE [address] [place] [address] Toby Sage MD 230 [place] [address] 09/11/2024 11:15 AM EDT Office Visit [facility] MEDICINE [address] [place] [address] Abelino Montenegro MD 230 [place] [address] documented as of this encounter Visit Diagnoses Diagnosis Gastroesophageal reflux disease without esophagitis Esophageal reflux documented in this encounter Additional Health Concerns Assessment Noted Time PHQ-9 Depression Total Score: 4 11/03/19 24 1:09 PM EDT documented as of this encounter Care Teams Senior Analytic Consultant Relationship Specialty Start Date End Date Abelino Montenegro MD [address] [place] [address]36 PCP - General Internal Medicine 03/10/21 documented as of this encounter
--- OUTSIDE RECORDS SUMMARY | 2024-07-03 09:28 | XMS_ITS | Encounter Summary ---
Author Organization [employer] Address 75 [facility] 7t [place] [address] Care Team Providers Care Shank Tapper Name Role Phone Abelino Montenegro MD Primary Care Provide r Reason for Visit * Reason Comments Med Refill Encounter Details Date Type Department Care Team ([facility] st Contact Info) Description 12/14/2023 Refill [facility] 230 [place], [place] [phone] Abelino Montenegro MD 230 [place] [address] Seasonal allergies; Essential hypertension Social History Tobacco [...] Office Visit [facility] MEDICINE [address] [place] [address] Toby Sage MD 230 [place] [address] 09/11/2024 11:15 AM EDT Office Visit [facility] MEDICINE [address] [place] [address]39 Abelino Montenegro MD 230 [place] [address] documented as of this encounter Visit Diagnoses Diagnosis Seasonal allergies Allergic rhinitis, cause unspecified Essential hypertension Unspecified essential hypertension documented in this encounter Additional Health Concerns Assessment Noted Time PHQ-9 Depression Total Score: 4 11/03/19 24 1:09 PM EDT documented as of this encounter Care Teams Shank Tapper Relationship Specialty Start Date End Date Abelino Montenegro MD [address] [place] [address] PCP - General Internal Medicine 03/10/21 documented as of this encounter
--- OUTSIDE RECORDS SUMMARY | 2024-07-03 09:28 | XMS_ITS | Encounter Summary ---
Author Organization [employer] Address 75 [facility] 7t [place] [address] Care Team Providers Care Sales Order Administrator Name Role Phone Abelino Montenegro MD Primary Care Provide r Reason for Visit * Reason Comments Med Refill Encounter Details Date Type Department Care Team (Late Contact Info) Description 09/14/2022 Refill [facility] MEDICINE 230 [place] [address] Kimberlyn Phillips MD [address] [place] [address] Gastroesophageal reflux disease without esophagitis Social History [...] PM EST Office Visit [facility] [place] [address] Toby Sage MD [facility] [place] [address] 09/11/2024 11:15 AM EDT Office Visit [facility] [place] [address] Abelino Montenegro MD [facility] [place] [address] documented as of this encounter Visit Diagnoses Diagnosis Gastroesophageal reflux disease without esophagitis Esophageal reflux documented in this encounter Additional Health Concerns Assessment Noted Time PHQ-9 Depression Total Score: 0 09/02/19 23 11:43 AM EDT documented as of this encounter Care Teams Sales Order Administrator Relationship Specialty Start Date End Date Abelino Montenegro MD [facility] [place] [address] PCP - General Internal Medicine 03/10/21 documented as of this encounter
--- OUTSIDE RECORDS SUMMARY | 2024-07-03 09:28 | XMS_ITS | Encounter Summary ---
Author Organization [employer] Address 75 [facility] 7t [place] [address] Care Team Providers Care Technical Report Writer Name Role Phone Abelino Montenegro MD Primary Care Provide r Reason for Visit * Reason Comments Med Refill Encounter Details Date Type Department Care Team ([facility] st Contact Info) Description 11/01/2023 Refill [facility] MEDICINE 230 [place] [address] Abelino Montenegro MD 230 [place] [address] Mild intermittent asthma without complication; Type 2 diabetes mellitus without complication, without long-term current use of insulin ([facility] Benign hypertension Social History Tobacco Use Types [...] Description 07/13/2024 1:45 PM EST Office Visit [facility] MEDICINE [address] [place] [address] 8[address]29 Toby Sage MD [address] [place] [address] 8[address] 09/11/2024 11:15 AM EDT Office Visit [facility] MEDICINE [address] [place] [address] 28331 Abelino Montenegro MD [address] [place] [address] 75342 documented as of this encounter Visit Diagnoses Diagnosis Mild intermittent asthma without complication Type 2 diabetes mellitus without complication, without long-term current use of insulin ([facility]) Benign hypertension Essential hypertension, benign documented in this encounter Additional Health Concerns Assessment Noted Time PHQ-9 Depression Total Score: 0 09/02/19 23 11:43 AM EDT documented as of this encounter Care Teams Technical Report Writer Relationship Specialty Start Date End Date Abelino Montenegro MD [address] [place] [address] PCP - General Internal Medicine 03/10/21 documented as of this encounter
--- OUTSIDE RECORDS SUMMARY | 2024-07-03 09:28 | XMS_ITS | Encounter Summary ---
Author Organization [employer] [facility] Address 75 [facility] 7t [place] [address] Care Team Providers Care Head Batcher Name Role Phone Abelino Montenegro MD Primary Care Provide r Encounter Details Date Type Department Care Team (Late Contact Info) Description 09/15/[address] [facility] [address] [place] [address]91 Abelino Montenegro MD [address] [place] [address] 9[address] Social History Tobacco Use Types Packs/Day Years [...] PM EST Office Visit [facility] [address] [place], [place] [address] [place] [address] Toby Sage MD 230 [facility] [place] [phone] 09/11/2024 11:15 AM EDT Office Visit [facility] 230 [facility] [place] [phone] Abelino Montenegro MD 230 [facility] [place], [place] [phone] documented as of this encounter Visit Diagnoses Not on filedocumented in this encounter Additional Health Concerns Assessment Noted Time PHQ-9 Depression Total Score: 0 09/02/19 23 11:43 AM EDT documented as of this encounter Care Teams Head Batcher Relationship Specialty Start Date End Date Abelino Montenegro MD [facility] [place], [place] [phone] PCP - General Internal Medicine 03/10/21 documented as of this encounter
--- OUTSIDE RECORDS SUMMARY | 2024-07-03 09:28 | XMS_ITS | Encounter Summary ---
Author Organization [employer] Address 75 [facility] 7t [place] [address] Care Team Providers Care Pin Ball Machine Mechanic Name Role Phone Abelino Montenegro MD Primary Care Provide r Reason for Visit * Reason Comments Med Refill Encounter Details Date Type Department Care Team ([facility] st Contact Info) Description 11/11/2023 Refill [facility] MEDICINE 230 [place] [address] Abelino Montenegro MD 230 [place] [address] Type 2 diabetes mellitus without complication, without long-term current use of insulin ([facility]); Mild intermittent asthma without complication; Benign [...] 1:45 PM EST Office Visit [facility] MEDICINE [address] [place] [address] Toby Sage MD [address] [place] [address] 09/11/2024 11:15 AM EDT Office Visit [facility] MEDICINE [address] [place] [address] Abelino Montenegro MD [address] [place] [address] documented as of this encounter Visit Diagnoses Diagnosis Type 2 diabetes mellitus without complication, without long-term current use of insulin ([facility]) Mild intermittent asthma without complication Benign hypertension Essential hypertension, benign documented in this encounter Additional Health Concerns Assessment Noted Time PHQ-9 Depression Total Score: 4 11/03/19 24 1:09 PM EDT documented as of this encounter Care Teams Pin Ball Machine Mechanic Relationship Specialty Start Date End Date Abelino Montenegro MD [address] [place] [address] 11905 PCP - General Internal Medicine 03/10/21 documented as of this encounter
--- OUTSIDE RECORDS SUMMARY | 2024-07-03 09:28 | XMS_ITS | Encounter Summary ---
Author Organization [employer] Address 75 [facility] 7t [place] [address] Care Team Providers Care Supervisor Grain And Yeast Plants Name Role Phone Abelino Montenegro MD Primary Care Provide r Reason for Visit * Reason Comments Med Refill Encounter Details Date Type Department Care Team ([facility] st Contact Info) Description 12/26/2023 Refill [facility] [address] [place], [place] [phone] Abelino Montenegro MD 230 [place] [address] Type 2 diabetes mellitus without complication, without long-term current use of insulin ([facility]) Social History Tobacco [...] Description 07/13/2024 1:45 PM EST Office Visit [facility] [address] [place] [address]151 Toby Sage MD [address] [place] [address] 09/11/2024 11:15 AM EDT Office Visit [facility] [address] [place] [address] Abelino Montenegro MD [address] [place] [address] documented as of this encounter Visit Diagnoses Diagnosis Type 2 diabetes mellitus without complication, without long-term current use of insulin ([facility]) documented in this encounter Additional Health Concerns Assessment Noted Time PHQ-9 Depression Total Score: 4 11/03/19 24 1:09 PM EDT documented as of this encounter Care Teams Supervisor Grain And Yeast Plants Relationship Specialty Start Date End Date Abelino Montenegro MD [address] [place] [phone] PCP - General Internal Medicine 03/10/21 documented as of this encounter
--- OUTSIDE RECORDS SUMMARY | 2024-07-03 09:28 | XMS_ITS | Encounter Summary ---
Author Organization [employer] Address 75 [facility] 7t [place] [address] Care Team Providers Care Bullet Casting Operator Name Role Phone Abelino Montenegro MD Primary Care Provide r Encounter Details Date Type Department Care Team ([facility] Contact Info) Description 06/30/2022 Orders Only [facility] MED [facility] PEDS [address] [place], [place] [phone] Viv Barnard LPN Social History Tobacco Use [...] Office Visit [facility] MEDICINE [address] [place] [address] [phone] Toby Sage MD [address] [place] [address] [phone] 09/11/2024 11:15 AM EDT Office Visit [facility] MEDICINE [address] [place] [address] [phone] Abelino Montenegro MD 230 [place], [place] [phone] documented as of this encounter Visit Diagnoses Not on filedocumented in this encounter Additional Health Concerns Assessment Noted Time PHQ-9 Depression Total Score: 0 06/29/19 23 1:07 PM EST documented as of this encounter Care Teams Bullet Casting Operator Relationship Specialty Start Date End Date Abelino Montenegro MD 230 [place] [address] PCP - General Internal Medicine 03/10/21 documented as of this encounter
--- OUTSIDE RECORDS SUMMARY | 2024-07-03 09:28 | XMS_ITS | Encounter Summary ---
Author Organization [employer] Address 75 [facility] 7t [place] [address] Care Team Providers Care Scow Derrick Operator Name Role Phone Abelino Montenegro MD Primary Care Provide r Reason for Visit * Reason Comments Med Refill Encounter Details Date Type Department Care Team ([facility] st Contact Info) Description 11/18/[address] [facility] MEDICINE [address] [place] [address] Abelino Montenegro MD 230 [place] [address] Benign hypertension; Type 2 diabetes mellitus without complication, without long-term current use of insulin ([facility]); Mild intermittent asthma without complication Social History [...] 07/13/2024 1:45 PM EST Office Visit [facility] MEDICINE [address] [place] [address] Toby Sage MD [address] [place] [address] 09/11/2024 11:15 AM EDT Office Visit [facility] MEDICINE [address] [place] [address] Abelino Montenegro MD [address] [place] [address] documented as of this encounter Visit Diagnoses Diagnosis Benign hypertension Essential hypertension, benign Type 2 diabetes mellitus without complication, without long-term current use of insulin ([facility]) Mild intermittent asthma without complication documented in this encounter Additional Health Concerns Assessment Noted Time PHQ-9 Depression Total Score: 4 11/03/19 24 1:09 PM EDT documented as of this encounter Care Teams Scow Derrick Operator Relationship Specialty Start Date End Date Abelino Montenegro MD [address] [place] [address]227 PCP - General Internal Medicine 03/10/21 documented as of this encounter
== END 2024-07-03 09:14 | disposition home or self-care (01) ==
PROVIDERS: Visit Provider Student in an Organized Health Care Education/Training Program
DX: M17.0 Bilateral primary osteoarthritis of knee (principal)
CPT/HCPCS: 20610; 99213

== ENCOUNTER → 2024-07-03 08:48 | Outpatient (BNVA) | payer OTHER, SELFPAY | PROVIDERS: Visit Provider Student in an Organized Health Care Education/Training Program | DX: M17.0 Bilateral primary osteoarthritis of knee (principal); E11.42 Type 2 diabetes mellitus with diabetic 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 | CPT/HCPCS: 20610; 99212; J7323 ==

== ENCOUNTER 2024-07-12 11:44 | Outpatient (REF) | payer OTHER, SELFPAY ==
[2024-07-12 13:23] LABS: Vitamin B12 567 pg/mL (200-900)
--- OUTSIDE RECORDS SUMMARY | 2024-07-12 14:23 | XMS_ITS | Encounter Summary ---
Author Organization [employer] Address 75 [facility] 7t [place] [address] Care Team Providers Care Daily Sales Audit Clerk Name Role Phone Abelino Montenegro MD Primary Care Provide r Reason for Visit * Reason Comments Med Refill Encounter Details Date Type Department Care Team ([facility] st Contact Info) Description 06/14/2023 Refill [facility] MEDICINE [address] [place] [address] Abelino Montenegro MD 230 [place] [address] Mild intermittent asthma without complication Social History [...] EST Office Visit [facility] MEDICINE [address] [place] [address] 19510 Toby Sage MD [address] [place] [address] 39727 09/11/2024 11:15 AM EDT Office Visit [facility] MEDICINE [address] [place] [address] 40630 Abelino Montenegro MD [address] [place] [address] 43338 documented as of this encounter Visit Diagnoses Diagnosis Mild intermittent asthma without complication documented in this encounter Additional Health Concerns Assessment Noted Time PHQ-9 Depression Total Score: 0 09/02/19 23 11:43 AM EDT documented as of this encounter Care Teams Daily Sales Audit Clerk Relationship Specialty Start Date End Date Abelino Montenegro MD [address] [place] [address] 60687 PCP - General Internal Medicine 03/10/21 documented as of this encounter
--- OUTSIDE RECORDS SUMMARY | 2024-07-12 14:23 | XMS_ITS | Encounter Summary ---
Author Organization [employer] Address [address] [facility] [address] 7t [place] [address] Care Team Providers Care Heel Seam Rubber Name Role Phone Abelino Montenegro MD Primary Care Provide r Reason for Visit * Reason Comments Med Refill Encounter Details Date Type Department Care Team ([facility] st Contact Info) Description 03/29/2023 Refill [facility] MED & PEDS [address] [place], [place] [phone] Abelino Montenegro MD 230 [place] [address] Social History Tobacco Use Types Packs/Day Years [...] Description 07/13/2024 1:45 PM EST Office Visit [facility] MEDICINE [address] [place] [address] 78167 Toby Sage MD [address] [place] [address] 43490 09/11/2024 11:15 AM EDT Office Visit [facility] MEDICINE [address] [place] [address] 58731 Abelino Montenegro MD [address] [place] [address] 26940 documented as of this encounter Visit Diagnoses Not on filedocumented in this encounter Additional Health Concerns Assessment Noted Time PHQ-9 Depression Total Score: 0 09/02/19 23 11:43 AM EDT documented as of this encounter Care Teams Heel Seam Rubber Relationship Specialty Start Date End Date Abelino Montenegro MD [address] [place] [address] 16695 PCP - General Internal Medicine 03/10/21 documented as of this encounter
--- OUTSIDE RECORDS SUMMARY | 2024-07-12 14:23 | XMS_ITS | Encounter Summary ---
Author Organization [employer] Address [address] [facility] 7t [place] [address] Care Team Providers Care Barrel Rifler Button Name Role Phone Abelino Montenegro MD Primary Care Provide r Reason for Visit * Reason Comments Med Refill Encounter Details Date Type Department Care Team ([facility] st Contact Info) Description 04/25/2023 Refill [facility] MEDICINE 230 [place] [address] Abelino Montenegro MD 230 [place] [address] Social History Tobacco Use Types Packs/Day Years Used Date Smoking Tobacco: Never Passive Smoke Exposure: Never Smokeless Tobacco: Never Alcohol Use Standard Drinks/Week Comments Never 0 (1 standard drink = 0.6 oz pur e alcohol) Depression Answer Date Recorded Patient Health Questionnaire-9 Score 0 09/01/2022 Housing Stability Answer Date Recorded What is your housing situation today? I have felicemichelle kiser 02/21/[address] you [...] Description 07/13/2024 1:45 PM EST Office Visit [facility] MEDICINE [address] [place] [address] 33578 Toby Sage MD [address] [place] [address] 29322 09/11/2024 11:15 AM EDT Office Visit [facility] MEDICINE [address] [place] [address] 92920 Abelino Montenegro MD 230 [place] [address] documented as of this encounter Visit Diagnoses Not on filedocumented in this encounter Additional Health Concerns Assessment Noted Time PHQ-9 Depression Total Score: 0 09/02/19 23 11:43 AM EDT documented as of this encounter Care Teams Barrel Rifler Button Relationship Specialty Start Date End Date Abelino Montenegro MD [address] [place] [address] 99567 PCP - General Internal Medicine 03/10/21 documented as of this encounter
--- OUTSIDE RECORDS SUMMARY | 2024-07-12 14:23 | XMS_ITS | Encounter Summary ---
Author Organization [employer] Address 75 [facility] 7t [place] [address] Care Team Providers Care Wheel Press Operator Name Role Phone Abelino Montenegro MD Primary Care Provide r Reason for Visit * Reason Comments Med Refill Encounter Details Date Type Department Care Team ([facility] st Contact Info) Description 06/10/2023 Refill [facility] MEDICINE 230 [place] [address] Abelino Montenegro MD 230 [place] [address] Social History Tobacco Use Types Packs/Day Years [...] 07/13/2024 1:45 PM EST Office Visit [facility] MEDICINE [address] [place] [address] 86999 Toby Sage MD [address] [place] [address] 29634 09/11/2024 11:15 AM EDT Office Visit [facility] MEDICINE [address] [place] [address] 8[address] Abelino Montenegro MD 230 [place] [address] documented as of this encounter Visit Diagnoses Not on filedocumented in this encounter Additional Health Concerns Assessment Noted Time PHQ-9 Depression Total Score: 0 09/02/19 23 11:43 AM EDT documented as of this encounter Care Teams Wheel Press Operator Relationship Specialty Start Date End Date Abelino Montenegro MD [address] [place] [address] 97706 PCP - General Internal Medicine 03/10/21 documented as of this encounter
--- OUTSIDE RECORDS SUMMARY | 2024-07-12 14:23 | XMS_ITS | Encounter Summary ---
Author Organization [employer] Address 75 [facility] 7t [place] [address] Care Team Providers Care Care Navigator Name Role Phone Abelino Montenegro MD Primary Care Provide r Reason for Visit * Reason Comments Med Refill Encounter Details Date Type Department Care Team ([facility] st Contact Info) Description 03/28/2023 Refill [facility] MEDICINE 230 [place] [address] Abelino Montenegro MD 230 [place] [address] Social History Tobacco Use Types Packs/Day Years [...] PM EST Office Visit [facility] MEDICINE [address] [place] [address] 78283 Toby Sage MD [address] [place] [address] 50350 09/11/2024 11:15 AM EDT Office Visit [facility] MEDICINE [address] [place] [address] 59562 Abelino Montenegro MD 230 [place] [address] documented as of this encounter Visit Diagnoses Not on filedocumented in this encounter Additional Health Concerns Assessment Noted Time PHQ-9 Depression Total Score: 0 09/02/19 23 11:43 AM EDT documented as of this encounter Care Teams Care Navigator Relationship Specialty Start Date End Date Abelino Montenegro MD [address] [place] [address] 72967 PCP - General Internal Medicine 03/10/21 documented as of this encounter
--- OUTSIDE RECORDS SUMMARY | 2024-07-12 14:23 | XMS_ITS | Encounter Summary ---
Author Organization [employer] Address 75 [facility] 7t [place] [address] Care Team Providers Care Machine Wood Sander Name Role Phone Abelino Montenegro MD Primary Care Provide r Reason for Visit * Reason Comments Med Refill Encounter Details Date Type Department Care Team ([facility] st Contact Info) Description 04/05/2023 Refill [facility] MEDICINE 230 [place] [address] Abelino Montenegro MD 230 [place] [address] Social History Tobacco Use Types Packs/Day Years [...] Description 07/13/2024 1:45 PM EST Office Visit [facility] MEDICINE [address] [place] [address] 8[address]64 Toby Sage MD [address] [place] [address] 68302 09/11/2024 11:15 AM EDT Office Visit [facility] MEDICINE [address] [place] [address] 20202 Abelino Montenegro MD [address] [place] [address] documented as of this encounter Visit Diagnoses Not on filedocumented in this encounter Additional Health Concerns Assessment Noted Time PHQ-9 Depression Total Score: 0 09/02/19 23 11:43 AM EDT documented as of this encounter Care Teams Machine Wood Sander Relationship Specialty Start Date End Date Abelino Montenegro MD [address] [place] [address] 15375 PCP - General Internal Medicine 03/10/21 documented as of this encounter
--- OUTSIDE RECORDS SUMMARY | 2024-07-12 14:23 | XMS_ITS | Encounter Summary ---
Author Organization [employer] Address [address] [facility] 7t [place] [address] Care Team Providers Care Sorting Cows Worker Name Role Phone Abelino Montenegro MD Primary Care Provide r Reason for Visit * Reason Comments Med Refill Encounter Details Date Type Department Care Team ([facility] st Contact Info) Description 05/23/2023 Refill [facility] MEDICINE 230 [place] [address] Abelino Montenegro MD 230 [place] [address] Seasonal allergies; Essential hypertension Social History Tobacco [...] Description 07/13/2024 1:45 PM EST Office Visit [facility] MEDICINE [address] [place] [address] 47710 Toby Sage MD [address] [place] [address] 55317 09/11/2024 11:15 AM EDT Office Visit [facility] MEDICINE [address] [place] [address] 90876 Abelino Montenegro MD [address] [place] [address] 87959 documented as of this encounter Visit Diagnoses Diagnosis Seasonal allergies Allergic rhinitis, cause unspecified Essential hypertension Unspecified essential hypertension documented in this encounter Additional Health Concerns Assessment Noted Time PHQ-9 Depression Total Score: 0 09/02/19 23 11:43 AM EDT documented as of this encounter Care Teams Sorting Cows Worker Relationship Specialty Start Date End Date Abeilno Montenegro MD [address] [place] [address] 24034 PCP - General Internal Medicine 03/10/21 documented as of this encounter
--- OUTSIDE RECORDS SUMMARY | 2024-07-12 14:23 | XMS_ITS | Encounter Summary ---
Author Organization [employer] Address 75 [facility] 7t [place] [address] Care Team Providers Care Signs Cleaner Name Role Phone Abelino Montenegro MD Primary Care Provide r Reason for Visit * Reason Comments Med Refill Encounter Details Date Type Department Care Team ([facility] st Contact Info) Description 04/14/2023 Refill [facility] MEDICINE 230 [place] [address] Abelino Montenegro MD 230 [place] [address] Social History Tobacco Use Types Packs/Day Years [...] Description 07/13/2024 1:45 PM EST Office Visit [facility] MEDICINE [address] [place] [address] 89538 Toby Sage MD [address] [place] [address] 08088 09/11/2024 11:15 AM EDT Office Visit [facility] MEDICINE [address] [place] [address] 66988 Abelino Montenegro MD 230 [place] [address] documented as of this encounter Visit Diagnoses Not on filedocumented in this encounter Additional Health Concerns Assessment Noted Time PHQ-9 Depression Total Score: 0 09/02/19 23 11:43 AM EDT documented as of this encounter Care Teams Signs Cleaner Relationship Specialty Start Date End Date Abelino Montenegro MD [address] [place] [address] 33071 PCP - General Internal Medicine 03/10/21 documented as of this encounter
--- OUTSIDE RECORDS SUMMARY | 2024-07-12 14:23 | XMS_ITS | Encounter Summary ---
Author Organization [employer] Address 75 [facility] 7t [place] [address] Care Team Providers Care Medical Social Worker Name Role Phone Abelino Montenegro MD Primary Care Provide r Reason for Visit * Reason Comments Med Refill Encounter Details Date Type Department Care Team ([facility] st Contact Info) Description 03/21/2023 Refill [facility] MEDICINE 230 [place] [address] Debbie Jaime MD 230 [place] [address] Gastroesophageal reflux disease without esophagitis Social History [...] Description 07/13/2024 1:45 PM EST Office Visit [facility] MEDICINE [address] [place] [address] 72940 Toby Sage MD [address] [place] [address] 17979 09/11/2024 11:15 AM EDT Office Visit [facility] MEDICINE [address] [place] [address] 87715 Abelino Montenegro MD [address] [place] [address] 74848 documented as of this encounter Visit Diagnoses Diagnosis Gastroesophageal reflux disease without esophagitis Esophageal reflux documented in this encounter Additional Health Concerns Assessment Noted Time PHQ-9 Depression Total Score: 0 09/02/19 23 11:43 AM EDT documented as of this encounter Care Teams Medical Social Worker Relationship Specialty Start Date End Date Abelino Montenegro MD [address] [place] [address] [phone] PCP - General Internal Medicine 03/10/21 documented as of this encounter
--- OUTSIDE RECORDS SUMMARY | 2024-07-12 14:23 | XMS_ITS | Encounter Summary ---
Author Organization [employer] Address 75 [facility] 7t [place] [address] Care Team Providers Care Population Geneticist Name Role Phone Abelino Montenegro MD Primary Care Provide r Reason for Visit * Reason Comments Med Refill Encounter Details Date Type Department Care Team ([facility] st Contact Info) Description 03/21/2023 Refill [facility] MEDICINE 230 [place] [address] Abelino Montenegro MD 230 [place] [address] Benign hypertension Social History Tobacco Use Types [...] Office Visit [facility] MEDICINE [address] [place] [address] 06430 Toby Sage MD [address] [place] [address] 48060 09/11/2024 11:15 AM EDT Office Visit [facility] MEDICINE [address] [place] [address] 17526 Abelino Montenegro MD 230 [place] [address] documented as of this encounter Visit Diagnoses Diagnosis Benign hypertension Essential hypertension, benign documented in this encounter Additional Health Concerns Assessment Noted Time PHQ-9 Depression Total Score: 0 09/02/19 23 11:43 AM EDT documented as of this encounter Care Teams Population Geneticist Relationship Specialty Start Date End Date Abelino Montenegro MD [address] [place] [address] 16589 PCP - General Internal Medicine 03/10/21 documented as of this encounter
--- OUTSIDE RECORDS SUMMARY | 2024-07-12 14:23 | XMS_ITS | Encounter Summary ---
Author Organization [employer] Address 75 [facility] 7t [place] [address] Care Team Providers Care Field Artillery Senior Sergeant Name Role Phone Abelino Montenegro MD Primary Care Provide r Reason for Visit * Reason Comments Med Refill Encounter Details Date Type Department Care Team ([facility] st Contact Info) Description 04/26/2023 Refill [facility] MEDICINE 230 [place] [address] Abelino Montenegro MD 230 [place] [address] Social History Tobacco Use Types Packs/Day Years [...] 07/13/2024 1:45 PM EST Office Visit [facility] MEDICINE [address] [place] [address] 06998 Toby Sage MD [address] [place] [address] 92563 09/11/2024 11:15 AM EDT Office Visit [facility] MEDICINE [address] [place] [address] 35819 Abelino Montenegro MD 230 [place] [address] documented as of this encounter Visit Diagnoses Not on filedocumented in this encounter Additional Health Concerns Assessment Noted Time PHQ-9 Depression Total Score: 0 09/02/19 23 11:43 AM EDT documented as of this encounter Care Teams Field Artillery Senior Sergeant Relationship Specialty Start Date End Date Abelino Montenegro MD [address] [place] [address] 69988 PCP - General Internal Medicine 03/10/21 documented as of this encounter
--- OUTSIDE RECORDS SUMMARY | 2024-07-12 14:24 | XMS_ITS | Encounter Summary ---
Author Organization [employer] Address 75 [facility] 7t [place] [address] Care Team Providers Care Courtesy Car Driver Name Role Phone Abelino Montenegro MD Primary Care Provide r Reason for Visit * Reason Comments Med Refill Encounter Details Date Type Department Care Team ([facility] st Contact Info) Description 03/20/2023 Refill [facility] MEDICINE 230 [place] [address] Abelino Montenegro MD 230 [place] [address] Acute midline low back pain without sciatica [...] Description 07/13/2024 1:45 PM EST Office Visit [facility] MEDICINE [address] [place] [address] 84725 Toby Sage MD [address] [place] [address] 76784 09/11/2024 11:15 AM EDT Office Visit [facility] MEDICINE [address] [place] [address] 14266 Abelino Montenegro MD [address] [place] [address] 35815 documented as of this encounter Visit Diagnoses Diagnosis Acute midline low back pain without sciatica documented in this encounter Additional Health Concerns Assessment Noted Time PHQ-9 Depression Total Score: 0 09/02/19 23 11:43 AM EDT documented as of this encounter Care Teams Courtesy Car Driver Relationship Specialty Start Date End Date Abelino Montenegro MD [address] [place] [address] 14278 PCP - General Internal Medicine 03/10/21 documented as of this encounter
--- OUTSIDE RECORDS SUMMARY | 2024-07-12 14:24 | XMS_ITS | Encounter Summary ---
Author Organization [employer] Address [address] [facility] [address] 7t [place] [address] Care Team Providers Care Fusion Operator Name Role Phone Abelino Montenegro MD Primary Care Provide r Encounter Details Date Type Department Care Team ([facility] st Contact Info) Description 09/01/2023 Orders Only [facility] MEDICINE 230 [place], [place] [phone] ProviderHans MD Social History Tobacco Use Types [...] Description 07/13/2024 1:45 PM EST Office Visit [facility] MEDICINE [address] [place] [address] 84943 Toby Sage MD [address] [place] [address] 09/11/2024 11:15 AM EDT Office Visit [facility] MEDICINE 230 [facility] [address] Abelino Montenegro MD [address] [place] [address] 53662 documented as of this encounter Procedures Procedure [...] documented as of this encounter Care Teams Fusion Operator Relationship Specialty Start Date End Date Abelino Montenegro MD [address] [place] [address] [phone] PCP - General Internal Medicine 03/10/21 documented as of this encounter
--- OUTSIDE RECORDS SUMMARY | 2024-07-12 14:24 | XMS_ITS | Encounter Summary ---
Author Organization [employer] [facility] Address 75 [facility] 7t [place] [address] Care Team Providers Care Home Energy Rater Name Role Phone Abelino Montenegro MD Primary Care Provide r Encounter Details Date Type Department Care Team (Late st Contact Info) Description 06/21/2022 Orders Only [facility] MEDICINE [address] [place] [address] 88[address] Zully Hallman LPN Social History Tobacco Use [...] Description 07/13/2024 1:45 PM EST Office Visit [address] [address] Toby Sage MD [address] [place] [address] 79620 09/11/2024 11:15 AM EDT Office Visit [address] [address] Abelino Montenegro MD [address] [place] [address] 15930 documented as of this encounter Visit Diagnoses Not on filedocumented in this encounter Care Teams Home Energy Rater Relationship Specialty Start Date End Date Abelino Montenegro MD [address] [place] [address] 48195 PCP - General Internal Medicine 03/10/21 documented as of this encounter
--- OUTSIDE RECORDS SUMMARY | 2024-07-12 14:24 | XMS_ITS | Encounter Summary ---
Author Organization [employer] Address [address] [facility] [address] 7t [place] [address] Care Team Providers Care Stage Producer Name Role Phone Abelino Montenegro MD Primary Care Provide r Reason for Visit * Reason Comments Med Refill Encounter Details Date Type Department Care Team ([facility] st Contact Info) Description 09/17/2023 Refill [facility] & PEDS [address] [place], [place] [phone] Abelino Montenegro MD 230 [place], [place] [phone] Social History Tobacco Use Types Packs/Day Years [...] Description 07/13/2024 1:45 PM EST Office Visit [facility] MEDICINE [address] [place] [address] 38190 Toby Sage MD [address] [place] [address] 43639 09/11/2024 11:15 AM EDT Office Visit [facility] MEDICINE [address] [place] [address] 07718 Abelino Montenegro MD [address] [place] [address] 55036 documented as of this encounter Visit Diagnoses Not on filedocumented in this encounter Additional Health Concerns Assessment Noted Time PHQ-9 Depression Total Score: 0 09/02/19 23 11:43 AM EDT documented as of this encounter Care Teams Stage Producer Relationship Specialty Start Date End Date Abelino Montenegro MD [address] [place] [address] 01560 PCP - General Internal Medicine 03/10/21 documented as of this encounter
--- OUTSIDE RECORDS SUMMARY | 2024-07-12 14:24 | XMS_ITS | Encounter Summary ---
Author Organization [employer] Address 75 [facility] 7t [place] [address] Care Team Providers Care Supervisor Maintenance Name Role Phone Abelino Montenegro MD Primary Care Provide r Encounter Details Date Type Department Care Team (Late st Contact Info) Description 06/14/2022 Orders Only [facility] MED & PEDS [address] [place], [place] [phone] Viv Barnard LPN Social History Tobacco Use [...] Description 07/13/2024 1:45 PM EST Office Visit [address] [address] Toby Sage MD [address] [place] [address] 15318 09/11/2024 11:15 AM EDT Office Visit [address] [address] Abelino Montenegro MD [address] [place] [address] 42598 documented as of this encounter Visit Diagnoses Not on filedocumented in this encounter Care Teams Supervisor Maintenance Relationship Specialty Start Date End Date Abelino Montenegro MD 230 [place] [address] PCP - General Internal Medicine 03/10/21 documented as of this encounter
--- OUTSIDE RECORDS SUMMARY | 2024-07-12 14:24 | XMS_ITS | Encounter Summary ---
Author Organization [employer] Address 75 [facility] 7t [place] [address] Care Team Providers Care Cloth Handler Name Role Phone Abelino Montenegro MD Primary Care Provide r Reason for Visit * Reason Comments Med Refill Encounter Details Date Type Department Care Team (Late Contact Info) Description 01/20/2023 Refill [facility] MEDICINE [address] [place] [address] [phone] Abelino Montenegro MD [address] [place] [address] [phone] Social History Tobacco Use Types Packs/Day Years [...] Description 07/13/2024 1:45 PM EST Office Visit [facility] MEDICINE [address] [place] [address] 30244 Toby Sage MD 230 [place], [place] [phone] 09/11/2024 11:15 AM EDT Office Visit [facility] MEDICINE 230 [place], [place] [phone] Abelino Montenegro MD 230 [place] [address] documented as of this encounter Visit Diagnoses Not on filedocumented in this encounter Additional Health Concerns Assessment Noted Time PHQ-9 Depression Total Score: 0 09/02/19 23 11:43 AM EDT documented as of this encounter Care Teams Cloth Handler Relationship Specialty Start Date End Date Abelino Montenegro MD 230 [place], [place] [phone] PCP - General Internal Medicine 03/10/21 documented as of this encounter
--- OUTSIDE RECORDS SUMMARY | 2024-07-12 14:24 | XMS_ITS | Encounter Summary ---
Author Organization [employer] Address [address] [facility] [address] 7t [place] [address] Care Team Providers Care Environmental Health Physician Name Role Phone Abelino Montenegro MD Primary Care Provide r Reason for Visit * Reason Comments Med Refill Encounter Details Date Type Department Care Team ([facility] st Contact Info) Description 12/26/2023 Refill [facility] MED & PEDS [address] [place], [place] [phone] Abelino Montenegro MD 230 [place] [address] Type 2 diabetes mellitus without complication, without long-term current use of insulin ([facility]) Social History Tobacco Use Types Packs/Day [...] Description 07/13/2024 1:45 PM EST Office Visit [facility] MEDICINE [address] [place] [address] Toby Sage MD [address] [place] [address] 09/11/2024 11:15 AM EDT Office Visit [facility]INE [address] [place] [address] Abelino Montenegro MD [address] [place] [address] 26[address] documented as of this encounter Visit Diagnoses Diagnosis Type 2 diabetes mellitus without complication, without long-term current use of insulin ([facility]) documented in this encounter Additional Health Concerns Assessment Noted Time PHQ-9 Depression Total Score: 4 11/03/19 24 1:09 PM EDT documented as of this encounter Care Teams Environmental Health Physician Relationship Specialty Start Date End Date Abelino Montenegro MD [address] [place] [phone] PCP - General Internal Medicine 03/10/21 documented as of this encounter
--- OUTSIDE RECORDS SUMMARY | 2024-07-12 14:24 | XMS_ITS | Encounter Summary ---
Author Organization [employer] Address [address] [facility] 7t [place] [address] Care Team Providers Care Director Of Physical Security Name Role Phone Abelino Montenegro MD Primary Care Provide r Reason for Visit * Reason Comments Med Refill Encounter Details Date Type Department Care Team ([facility] st Contact Info) Description 07/06/2023 Refill [facility] MEDICINE [address] [place] [address] Abelino Montenegro MD 230 [place] [address] Social History Tobacco Use Types Packs/Day Years [...] Description 07/13/2024 1:45 PM EST Office Visit [facility] MEDICINE [address] [place] [address] Toby Sage MD [address] [place] [phone] 09/11/2024 11:15 AM EDT Office Visit [facility] MEDICINE [address] [place] [address] Abelino Montenegro MD 230 [place] [address] documented as of this encounter Visit Diagnoses Not on filedocumented in this encounter Additional Health Concerns Assessment Noted Time PHQ-9 Depression Total Score: 0 09/02/19 23 11:43 AM EDT documented as of this encounter Care Teams Director Of Physical Security Relationship Specialty Start Date End Date Abelino Montenegro MD [address] [place] [address] PCP - General Internal Medicine 03/10/21 documented as of this encounter
--- OUTSIDE RECORDS SUMMARY | 2024-07-12 14:24 | XMS_ITS | Encounter Summary ---
Author Organization [employer] Address [address] [facility] 7t [place] [address] Care Team Providers Care Automation And Controls Supervisor Name Role Phone Abelino Montenegro MD Primary Care Provide r Reason for Visit * Reason Comments Med Refill Encounter Details Date Type Department Care Team ([facility] st Contact Info) Description 06/12/2024 Refill [facility] MEDICINE 230 [place] [address] Abelino Montenegro MD 230 [place] [address] Acute midline low back pain without sciatica; [...] Description 07/13/2024 1:45 PM EST Office Visit [facility] MEDICINE [address] [place] [address] Toby Sage MD [address] [place] [address] 09/11/2024 11:15 AM EDT Office Visit [facility] MEDICINE [address] [place] [address] 12[address] Abelino Montenegro MD [address] [place] [address] documented as of this encounter Visit Diagnoses Diagnosis Acute midline low back pain without sciatica Mild intermittent asthma without complication Seasonal allergies Allergic rhinitis, cause unspecified Essential hypertension Unspecified essential hypertension Urticarial rash Unspecified urticaria documented in this encounter Additional Health Concerns Assessment Noted Time PHQ-9 Depression Total Score: 4 11/03/19 24 1:09 PM EDT documented as of this encounter Care Teams Automation And Controls Supervisor Relationship Specialty Start Date End Date Abelino Montenegro MD [address] [place] [phone] PCP - General Internal Medicine 03/10/21 documented as of this encounter
--- OUTSIDE RECORDS SUMMARY | 2024-07-12 14:24 | XMS_ITS | Encounter Summary ---
Author Organization [employer] Address [address] [facility] 7t [place] [address] Care Team Providers Care Checkering Machine Adjuster Name Role Phone Abelino Montenegro MD Primary Care Provide r Reason for Visit * Reason Comments Med Refill Encounter Details Date Type Department Care Team (Late Contact Info) Description 02/03/2023 Refill [facility] MEDICINE [address] [place] [address] [phone] Abelino Montenegro MD [address] [place] [address] [phone] Social History Tobacco Use Types Packs/Day Years [...] Description 07/13/2024 1:45 PM EST Office Visit [facility] MEDICINE [address] [place] [address] 31067 Toby Sage MD 230 [place], [place] [phone] 09/11/2024 11:15 AM EDT Office Visit [facility] MEDICINE 230 [place], [place] [phone] Abelino Montenegro MD 230 [place] [address] documented as of this encounter Visit Diagnoses Not on filedocumented in this encounter Additional Health Concerns Assessment Noted Time PHQ-9 Depression Total Score: 0 09/02/19 23 11:43 AM EDT documented as of this encounter Care Teams Checkering Machine Adjuster Relationship Specialty Start Date End Date Abelino Montenegro MD [address] [place], [place] [phone] PCP - General Internal Medicine 03/10/21 documented as of this encounter
--- OUTSIDE RECORDS SUMMARY | 2024-07-12 14:24 | XMS_ITS | Encounter Summary ---
Author Organization [employer] Address [address] [facility] 7t [place] [address] Care Team Providers Care Rigging Up Man Name Role Phone Abelino Montenegro MD Primary Care Provide r Reason for Visit * Reason Comments Med Refill Encounter Details Date Type Department Care Team (Late Contact Info) Description 01/28/2023 Refill [facility] MEDICINE [address] [place] [address] [phone] Abelino Montenegro MD [address] [place] [address] [phone] Social History Tobacco Use Types Packs/Day Years [...] Description 07/13/2024 1:45 PM EST Office Visit [facility] MEDICINE [address] [place] [address] 97[address] Toby Sage MD 230 [place], [place] [phone] 09/11/2024 11:15 AM EDT Office Visit [facility] MEDICINE 230 [place], [place] [phone] Abelino Montenegro MD [address] [place] [address] documented as of this encounter Visit Diagnoses Not on filedocumented in this encounter Additional Health Concerns Assessment Noted Time PHQ-9 Depression Total Score: 0 09/02/19 23 11:43 AM EDT documented as of this encounter Care Teams Rigging Up Man Relationship Specialty Start Date End Date Abelino Montenegro MD [address] [place], [place] [phone] PCP - General Internal Medicine 03/10/21 documented as of this encounter
--- OUTSIDE RECORDS SUMMARY | 2024-07-12 14:24 | XMS_ITS | Encounter Summary ---
Author Organization [employer] Address [address] [facility] [address] 7t [place] [address] Care Team Providers Care Patient Office Rep Name Role Phone Abelino Montenegro MD Primary Care Provide r Reason for Visit * Reason Comments Med Refill Encounter Details Date Type Department Care Team ([facility] st Contact Info) Description 12/15/2023 Refill [facility] CHC MED & PEDS [address] [place], [place] [phone] Abelino Montenegro MD 230 [place] [address] Type 2 diabetes mellitus without complication, without long-term current use of insulin ([facility]) Social History Tobacco Use Types Packs/Day Years [...] 07/13/2024 1:45 PM EST Office Visit [facility] MEDICINE [address] [place] [address] Toby Sage MD [address] [place] [address] 09/11/2024 11:15 AM EDT Office Visit [facility] MEDICINE [address] [place] [address] Abelino Montenegro MD [address] [place] [address] documented as of this encounter Visit Diagnoses Diagnosis Type 2 diabetes mellitus without complication, without long-term current use of insulin ([facility]) documented in this encounter Additional Health Concerns Assessment Noted Time PHQ-9 Depression Total Score: 4 11/03/19 24 1:09 PM EDT documented as of this encounter Care Teams Patient Office Rep Relationship Specialty Start Date End Date Abelino Montenegro MD [address] [place] [address] PCP - General Internal Medicine 03/10/21 documented as of this encounter
--- OUTSIDE RECORDS SUMMARY | 2024-07-12 14:24 | XMS_ITS | Encounter Summary ---
Author Organization [employer] Address [address] [facility] 7t [place] [address] Care Team Providers Care Corporate Development Associate Name Role Phone Abelino Montenegro MD Primary Care Provide r Reason for Visit * Reason Comments Med Refill Encounter Details Date Type Department Care Team ([facility] st Contact Info) Description 06/12/2024 Refill [facility] 230 [place] [address] Debbie Tee MD 230 [place] [address] Urticarial rash Social History Tobacco Use Types [...] 1:45 PM EST Office Visit [facility] [address] [place] [address] Toby Sage MD [address] [place] [address] 09/11/2024 11:15 AM EDT Office Visit [facility] [address] [place] [address] Abelino Montenegro MD [address] [place] [address] 8[address] documented as of this encounter Visit Diagnoses Diagnosis Urticarial rash Unspecified urticaria documented in this encounter Additional Health Concerns Assessment Noted Time PHQ-9 Depression Total Score: 4 11/03/19 24 1:09 PM EDT documented as of this encounter Care Teams Corporate Development Associate Relationship Specialty Start Date End Date Abelino Montenegro MD [address] [place] [address] PCP - General Internal Medicine 03/10/21 documented as of this encounter
--- OUTSIDE RECORDS SUMMARY | 2024-07-12 14:24 | XMS_ITS | Data Portability ---
Author Organization [employer] Address [address] [place] [address] Care Team Providers Care Mine Supervisor Name Role Phone HIM [facility] OTHER [facility] OTHER Assessment Encounter Date Assessment Date Assessment LastModified by Organization Details LastModified Time 09/23/2021 09/23/2021 I have reviewed and agree with the assessment and plan as documented by the international travel consultant. I provided real-time medical direction for this [...] conducted with the use of professional medical reviewer. REQUEST THAT CARE TEAM ATTEMPT TO ESTABLISH [...] resolution. If persists, would rec derm referral. Not available 01/12/2024 19:09:28 01/19/2024 01/19/2024 I provided real -time medical direction via phone for this encounter, and was available for additional phone based assistance as needed. I have reviewed and agree with the Assessment and Plan as documented by the Oracle Reports Developer. We discussed the diagnostic uncertainty of home [...] to call 911- verbalized understanding of instruction [email or web address] Not available 01/19/2024 15:13:59 Plan of Treatment Reminders Order Date Submit Date Provider Last Modified By Organization Details Last Modified Time Details Appointments None recorded. Lab glucose, fingerstick , blood 2023 024 [email or web address] 0 [facility], [address] [place] [address], [phone], 4 23:29:05 BMP, serum or plasma 2023 024 [email or web address] 0 [facility], [address] [place] [address], [phone], 4 23:29:03 Referral None recorded. Procedures None recorded. Surgeries None recorded. Imaging None recorded. Medication Orders ketorolac 30 mg/mL injection solution 2023 024 [email or web address] 0 [id number], [address] [place], [address], 4 23:29:03 clobetasol 0.05 % topical ointment 2023 024 [id number], [address] [place], [address], 4 17:58:36 Patient TargetsNo targets recorded. Patient InstructionsNo instructions recorded. Reason for Referral None Reported. Results Created Date Observation Date Name Description Value Unit Range Abnormal Flag Note LastModifiedBy Organization Detail LastModifiedTime 01/19/20 24 01/19/2024 gluco se, finge rsmartin k, blood Blood Glucose: mg/dl 115 Not Available [facility] [address] [place] [address], [place], [phone], 01/19/2024 15:14:35 Result Notes None recorded. Medical [...] TABLETA POR VIA ORAL DOS VECES AL FERDIS active Not Available Not Available No t [...] Details Last Updated DateTime 4 82 /min 80000.9 04 g 98 % 98 % 16 /min 98.2 [degF] 132 mm[Hg] 84 mm[Hg] Not Available [facility] 4 16:27:09 Date Recorded Body temperature Respiratory rate Body weight Heart rate Oxygen saturation Oxygen saturation in Arterial blood by Pulse oximetry Systolic blood pressure Diastolic blood pressure Provider Name and Address Organization Details Last Updated DateTime 4 98 [degF] 20 /min 37314.9 04 g 92 /min 96 % 96 % 175 mm[Hg] 92 mm[Hg] Not Available [facility] 4 14:54:20 Date Recorded Body temperature Heart rate Oxygen saturation Oxygen saturation in Arterial blood by Pulse oximetry Respiratory rate Systolic blood pressure Diastolic blood pressure Provider Name and Address Organization Details Last Updated DateTime 2 98 [degF] 92 /min 97 % 97 % 18 /min 111 mm[Hg] 73 mm[Hg] Not Available [facility] 2 18:51:50 Social History None recorded. Functional [...] 1657 Yoandy Bates MD Main - [facility] [address] [place] [phone] 09/23/2021 18:51:47 01/08/2022 15:34:41 Pain in lower limb 06656575 M79.606 Cough 06923562 R05.1 Dizziness [id number] R42 [id number] MARBIN GREER MD Main - [facility] [address] [place] [phone] 01/12/2024 16:27:03 01/12/2024 22:17:41 Acute dermatitis [id number] L30.9 26029 Shakira Whitmore MD Main - [facility] [address] [place] [address] [phone] 01/19/2024 14:54:17 01/20/2024 13:26:27 Pain in bilateral legs [id number] 6638451 M79.604 M79.605 Likely osteoarthr itis given her history of sameAdvise d patient and daughter that I cannot completely rule out a DVT based on her exam, I have sent a request to her district manager primary care sales to work with the PCP to schedule [...] Wong Member ID Guarantor Name 09/23/2021 1 [facility] - DOS PRIOR TO 2022 - DUAL ELIGIBLE (MEDICARE REPLACEMENT/AD VANTAGE - HMO) Mercedes Og [id number] Mercedes Og 01/12/2024 1 [facility] - DOS ON OR AFTER 2022 - DUAL ELIGIBLE - [facility] OPTIONS AND ONE CARE (MEDICARE REPLACEMENT/AD VANTAGE - HMO) Mercedes Og [id number] Mercedes Og 01/19/2024 1 [facility] - DOS ON OR AFTER 2022 - DUAL ELIGIBLE - [facility] OPTIONS AND ONE CARE (MEDICARE REPLACEMENT/AD VANTAGE - HMO) Mercedes Og [id number] Mercedes Og Notes Date Note Type Note Provider Name and Address Organization Details Recorded Time 09/23/2021 text/html HPI: NKA Pt Hx of hypertension and DM, Hx of TIA now with complaints of: Pt reports dizziness, loss of appetite, ankle/foot edema, nasal congestion. Neg for Covid 09/21 .................. .................. .................. .................. .................. .................. .................. ............... Oracle Reports Developer Note: Sent to evaluate pt with poly [...] normal output. Rapid covid test negative. Consulted [facility] who recommended that pt leave legs elevated when pt is at rest and this medic assisted by placing pillow under legs. [facility] recommends pt take APAP TID while symptomatic. Pt stated to [facility] that her symptoms have been slowly improving. [facility] will assist pt with getting urgent visit with PCP, as pt would rather not go to ER. Went over red flags and no further questions or concerns at this time. .................. .................. .................. .................. .................. .................. .................. ............... Disposition: Fulfilled Yoandy Bates MD [address] [place] [address],[address], [place], [phone], [employer] 09/23/2021 18:57:08 01/12/2024 text/html HPI: Pt was [...] .................. .................. .................. .................. .................. .................. ............... Oracle Reports Developer Note From Son Yusuf: Pt co rash [...] .................. ............... Disposition: Fulfilled MARBIN GREER MD [address] [place] [address],[address], [place], [phone], [employer] 01/12/2024 19:09:36 01/19/2024 text/html HPI: Member's daughter/ [...] be present to translate as Mercedes is Icelandic speaking. .................. .................. .................. .................. .................. .................. .................. ............... CRC Nurse Triage Notes (Maday Lindsey): Chief Complaints: Pain PMH: Hypertension, Diabetes, COPD/Asthma Comments: Reviewed HPI- no further info needed.Hpatterson RNPlease review allergies w/ member/unknown. Oracle Reports Developer Organization Information for [employer] Legal Name: [facility] [employer] Address: [address] [place] [address], Forklift Material Handler: Tye MACIAS No.: [id number] Oracle Reports Developer POC Test Results from [facility] - [facility] Blood Glucose Measurement (14:40:43) Blood Glucose: 115 mg/dL iSTAT Chem8+ (15:14:18) Na: 140 mEq/L K: 3.7 mEq/L Cl: 99 mEq/L iCa: 1.16 mmol/L TCO2: 28 mmol/L Glu: 116 mg/dL BUN: 11 mg/dL Crea: 0.6 mg/dL Hct: 43 % Hb: 14.6 g/dL A .................. .................. .................. .................. .................. .................. .................. ............... Oracle Reports Developer Note From [employer] Billings: Pt found in residence lying supine on couch legs slightly elevated with pillow, CAOX4 Icelandic speaking only. Pt daughter on scene able [...] and topical salve. Shakira Whitmore MD [address] [facility],[address], [place], [address], [employer] 01/19/2024 23:29:46 OBGyn Episode No OBEpisode recorded.
--- OUTSIDE RECORDS SUMMARY | 2024-07-12 14:24 | XMS_ITS | Encounter Summary ---
Author Organization [employer] Address [address] [facility] 7t [place] [address] Care Team Providers Care Glassware Maker Name Role Phone Abelino Montenegro MD Primary Care Provide r Reason for Visit * Reason Onset Date Comments Med Refill 02/18/2023 Encounter Details Date Type Department Care Team ([facility] st Contact Info) Description 02/18/2023 Refill [facility] MEDICINE [address] [place] [address] Abelino Montenegro MD [address] [place] [address] Type 2 diabetes mellitus without complication, with long-term current use of insulin ([facility]) Social History Tobacco Use Types [...] 1:45 PM EST Office Visit [facility] MEDICINE [address] [place] [address] Toby Sage MD [address] [place] [address] 09/11/2024 11:15 AM EDT Office Visit [facility] MEDICINE [address] [place] [address] Abelino Montenegro MD [address] [place] [address] documented as of this encounter Visit Diagnoses Diagnosis Type 2 diabetes mellitus without complication, with long-term current use of insulin ([facility]) documented in this encounter Additional Health Concerns Assessment Noted Time PHQ-9 Depression Total Score: 0 09/02/19 23 11:43 AM EDT documented as of this encounter Care Teams Glassware Maker Relationship Specialty Start Date End Date Abelino Montenegro MD [address] [place] [address] PCP - General Internal Medicine 03/10/21 documented as of this encounter
--- OUTSIDE RECORDS SUMMARY | 2024-07-12 14:24 | XMS_ITS | Encounter Summary ---
Author Organization [employer] Address [address] [facility] 7t [place] [address] Care Team Providers Care Landscaping Crew Leader Name Role Phone Abelino Montenegro MD Primary Care Provide r Reason for Visit * Reason Comments Med Refill Encounter Details Date Type Department Care Team ([facility] st Contact Info) Description 06/17/2023 Refill [facility] MEDICINE [address] [place] [address] Abelino Montenegro MD [address] [place] [address] Social History Tobacco Use Types Packs/Day Years [...] Description 07/13/2024 1:45 PM EST Office Visit [facility] MEDICINE [address] [place] [address] Toby Sage MD [address] [place] [address] 09/11/2024 11:15 AM EDT Office Visit [facility] MEDICINE [address] [place] [address] Abelino Montenegro MD [address] [place] [address] documented as of this encounter Visit Diagnoses Not on filedocumented in this encounter Additional Health Concerns Assessment Noted Time PHQ-9 Depression Total Score: 0 09/02/19 23 11:43 AM EDT documented as of this encounter Care Teams Landscaping Crew Leader Relationship Specialty Start Date End Date Abelino Montenegro MD [address] [place] [address] PCP - General Internal Medicine 03/10/21 documented as of this encounter
--- OUTSIDE RECORDS SUMMARY | 2024-07-12 14:24 | XMS_ITS | Encounter Summary ---
Author Organization [email or web address] Address [address] [facility] [address] 7t [place] [address] Care Team Providers Care Dish Maker Name Role Phone Abelino Montenegro MD Primary Care Provide r Reason for Visit * Reason Comments Med Refill Encounter Details Date Type Department Care Team ([facility] st Contact Info) Description 09/08/[address] [facility] CH[facility] MED & PEDS [address] [place], [place] [phone] Abelino Montenegro MD [address] [place], [place] [phone] Social History Tobacco Use Types Packs/Day Years [...] EST Office Visit [facility] MEDICINE [address] [place] [address] Toby Sage MD [address] [place] [address] 09/11/2024 11:15 AM EDT Office Visit [facility] MEDICINE [address] [place] [address] Abelino Montenegro MD [address] [place] [address] documented as of this encounter Visit Diagnoses Not on filedocumented in this encounter Additional Health Concerns Assessment Noted Time PHQ-9 Depression Total Score: 0 09/02/19 23 11:43 AM EDT documented as of this encounter Care Teams Dish Maker Relationship Specialty Start Date End Date Abelino Montenegro MD [address] [place] [address] PCP - General Internal Medicine 03/10/21 documented as of this encounter
--- OUTSIDE RECORDS SUMMARY | 2024-07-12 14:24 | XMS_ITS | Encounter Summary ---
Author Organization [employer] Address [address] [facility] 7t [place] [address] Care Team Providers Care Landfill Gas Technician Name Role Phone Abelino Montenegro MD Primary Care Provide r Reason for Visit * Reason Comments Med Refill Encounter Details Date Type Department Care Team ([facility] st Contact Info) Description 10/20/2023 Refill [facility] MEDICINE [address] [place] [address] Debbie Jaime MD 230 [place] [address] Gastroesophageal reflux disease without esophagitis Social History [...] Office Visit [facility] MEDICINE [address] [place] [address] Toby Sage MD [address] [place] [address] 09/11/2024 11:15 AM EDT Office Visit [facility] MEDICINE [address] [place] [address] Abelino Montenegro MD [address] [place] [address] documented as of this encounter Visit Diagnoses Diagnosis Gastroesophageal reflux disease without esophagitis Esophageal reflux documented in this encounter Additional Health Concerns Assessment Noted Time PHQ-9 Depression Total Score: 0 09/02/19 23 11:43 AM EDT documented as of this encounter Care Teams Landfill Gas Technician Relationship Specialty Start Date End Date Abelino Montenegro MD [address] [place] [phone] PCP - General Internal Medicine 03/10/21 documented as of this encounter
--- OUTSIDE RECORDS SUMMARY | 2024-07-12 14:24 | XMS_ITS | Clinical Summary ---
Author Organization [employer] Address [address] [facility] 7t [place] [address] Care Team Providers Care Internet Webmaster Name Role Phone Abelino Montenegro MD Primary [...] DOS VECES AL FREDIS 60 tablet 6 06/10/2 024 Active lidocaine (Lidoderm) 5 % patch APPLY 1 PATCH TOPICALLY LEAVE ON FOR UP TO 12 HOURS 30 patch Active FreeStyle lancetsIndicati ons:Type 2 diabetes mellitus without complication, without long-term current use of insulin (CMS/HCC) 1 each by Other route every 12 (twelve) hours. 100 each Active albuterol (Ventolin HFA) 108 (90 Base) MCG/ACT inhalerIndicati ons:Mild intermittent asthma without complication INHALE 2 PUFFS BY MOUTH FOUR TIMES A DAY (BULK) 18 g Active insulin pen needle (B-D ULTRAFINE III SHORT PEN) 31G X 8 mm misc USE DIRECTED FOUR TIMES A DAY (BULK) 100 each Active aspirin (Aspirin Low Dose) 81 MG EC tabletIndicatio ns:Type 2 diabetes mellitus without complication, without long-term current use of insulin (CMS/HCC) TAKE ONE TABLET BY MOUTH EVERY DAY 30 tablet Active lisinopril 30 MG tabletIndicatio ns:Benign hypertension TAKE ONE TABLET BY MOUTH EVERY MORNING 30 tablet Active LORazepam (Ativan) 1 MG tablet TAKE ONE TABLET ONE HOUR BEFORE THE PROCEDURE. Active oxybutynin XL (Ditropan-XL) 10 MG 24 hr tablet TAKE 1 TABLET BY MOUTH EVERYDAY AT NOON Active Viberzi 75 MG tablet Active Trulicity 1.5 MG/0.5ML solution pen-injector INJECT 0.5ML SUBCUTANEOUSLY ONCE WEEKLY IN THE ABDOMEN, THIGH, OR UPPER ARM; ROTATING INJECTION SITES (BULK) 2 mL 3 Active fluticasone (Flovent) 220 MCG/ACT inhalerIndicati ons:Mild intermittent asthma without complication INHALE 1 PUFF IN THE MORNING AND AT BEDTIME (BULK) 12 g Active acetaminophen (Tylenol 8 Hour) 650 MG ER tablet TAKE ONE TABLET BY MOUTH EVERY 8 HOURS NEEDED FOR PAIN (VIAL) 60 tablet 1 Active pantoprazole (ProtoNix) 40 MG EC tabletIndicatio ns:Gastroesopha geal reflux disease without esophagitis TOME 1 TABLETA POR VIA ORAL TODOS LOS BOYD 90 tablet 024 Active glucose blood (FREESTYLE LITE) test [...] without complication INHALE 1 VIAL VIA NEBULIZER FRANCINEBrandon SIEGELES AL FREDIS 90 mL 3 025 Active montelukast [...] OR ALLERGIES 30 tablet 1 025 Active triamcinolone (Kenalog) 0.1 % creamIndication s:Dermatitis APPLY TOPICALLY IF NEEDED IN THE MORNING AND AT BEDTIME (PAIN AND SWELLING). 30 g 2 025 Active loratadine (Claritin) 10 MG tabletIndicatio ns:Seasonal allergies TOME 1 TABLETA POR VIA ORAL TODOS [facility] BOYD [facility] 90 tablet 1 025 Active amLODIPine (Norvasc) 5 [...] (BULK) 75 mL 3 024 2024 Discontinued loratadine (Claritin) 10 MG tabletIndicatio ns:Seasonal allergies TOME TIFFANIE TABLETA TODOS LOS BOYD 90 tablet 1 024 2024 Discontinued triamcinolone (Kenalog) 0.1 % creamIndication s:Dermatitis Apply topically if needed in the morning and at bedtime (pain and swelling). 45 g 2 024 2024 Discontinued Active Problems Problem Noted [...] and benadryl PRN px today -refer to radiation protection engineer to clarify possible triggers -will hold for [...] X-rays lumbar spine and hips that showed: Rxxh-xu-fgfhhglx degenerative changes in the bilateral hips. 2. [...] X-rays lumbar spine and hips that showed: Fpmp-jn-yyivdtdm degenerative changes in the bilateral hips. 2. [...] X-rays lumbar spine and hips that showed: Zlsk-wd-itthqzjd degenerative changes in the bilateral hips. 2. [...] X-rays lumbar spine and hips that showed: Wwyv-qr-znonuopg degenerative changes in the bilateral hips. 2. [...] Type Department Care Team Description 07/02/2024 Refill [facility] MEDICINE [address] [place] [address] Abelino Montenegro MD Dermatitis; Seasonal allergies 06/12/2024 Refill [facility] [address] [place] [address] Debbie Tee MD Urticarial rash 06/12/2024 Refill [facility] MEDICINE 230 [place] [address] Abelino Montenegro MD Acute midline low back pain without sciatica; Mild intermittent asthma without complication; Seasonal allergies; Essential hypertension; Urticarial rash 06/08/2024 Refill [facility] MEDICINE [address] [place] [address] Abelino Montenegro MD Diarrhea, unspecified type 05/17/2024 Telephone [facility] MEDICINE [address] [place] [address] Abelino Montenegro MD 05/15/2024 11:30 AM EST Office Visit [facility] MEDICINE [address] [place] [address] Abelino Montenegro MD Forgetfulness (Primary Dx); Type 2 diabetes mellitus without complication, without long-term current use of insulin ([facility]); Dry eye; Acute cough 05/15/2024 Travel 05/03/2024 Telephone [facility] MEDICINE [address] [place] [address] Abelino Montenegro MD Chart Prep 04/27/2024 Telephone [facility] MEDICINE [address] [place], [place] [phone] Abelino Montenegro MD Appointment Request from Last 3 Months Immunizations Name Administration [...] 04/05/2018 MMR 11/28/1997 Moderna Covid-19 Vaccine 12+ 08/22/2020,07/26/19,06/27/2020 Pfizer Covid-19 Vaccine 12+ 02/14/2024,1 ,10/27/2021,03/24 Pfizer [...] 1:45 PM EST Office Visit [facility] MEDICINE [address] [place] [address]67 Toby Sage MD [address] [place] [address] 09/11/2024 11:15 AM EDT Office Visit [facility] MEDICINE [address] [place] [address] Abelino Montenegro MD [address] [place] [address] Health Maintenance Due Date Last Done Comments [...] PM EST Narrative 05/15/2024 1:32 PM EST ?[facility] ?[address] ?[place] [address] ?XRay Report ? Signed ? Patient: Vizcarrondo,Mercedes ?MR#: [id number] ?? [id number] ? : 1950 ?Acct:[id number] ? Age/Sex: 74 / F ?ADM Date: 05/15/24 ? Loc: HO.HHCX ? Attending Dr: Abelino Maddox MD ? Ordering Physician: Abelino Maddox MD ?? Date of Service: 05/15/24 ?? Procedure(s): XR chest 2V ?? Accession Number(s): [id number] ? cc: Abelino Maddox MD ? EXAMINATION: [...] DD/ 1302 ? TD/TT: 05/15/24 1315 ? Lift Driver: ? Procedure Note Loulou, Image - 05/15/2024 [facility] [address] [place] [address] XRay Report Signed Patient: Ronnell Foley#: [id number] : 1950cct:[id number] Age/Sex: 74 / FADM Date: 05/15/24 Loc: HO.HHCX Attending Dr: Abelino Maddox MD Ordering Physician: Abelino Maddox MD Date of Service: 05/15/24 Procedure(s): XR chest 2V Accession Number(s): [id number] cc: Abelino Maddox MD EXAMINATION: XR CHEST [...] 05/15/24 1329 DD/ 1302 TD/TT: 05/15/24 1315 Lift Driver: Abelino Whitfield MD IMG XR PROCEDURES Fin al Result * POCT Rapid Covid-19 BinaxNOW (05/15/2024 12:48 PM EST) Rapid COVID Ag Negative QC Media Lot # [id number] Lot# Expiration Date Swab 05/15/2024 12:4 8 PM EST Abelino Whitfield MD POINT OF CARE TEST EN TER/EDIT ORDERABLES Final Result * POCT Rapid Influenza B HANSON ID NOW (05/15/2024 12:47 PM EST) Influenza B Negative Negative, Indeterminate [facility] QC Media Lot # [id number] [facility] Lot# Expiration Date [facility] Swab 05/15/2024 12:4 7 PM EST Abelino Whitfield MD POINT OF CARE TEST EN TER/EDIT ORDERABLES Final Result Performing Organization Address City/[facility]/ZIP Co de Phone Number [facility] [address] [place] [phone] * POCT Rapid Influenza A HANSON ID NOW (05/15/2024 12:47 PM EST) Influenza A Negative Negative, Indeterminate [facility] QC Media Lot # [id number] [facility] Lot# Expiration Date [facility] Swab 05/15/2024 12:4 7 PM EST us Abelino Whitfield MD POINT OF CARE TEST EN TER/EDIT ORDERABLES Final Result Performing Organization Address City/[facility]/ZIP Co de Phone Number [facility] [address] [place] [phone] * (ABNORMAL) POCT HGB A1C (05/15/2024 12:00 PM EST) Hemoglobin A1C 6.6(A) 4.0 - 6.0 % QC Media Lot # [id number] Lot# Expiration Date Blood 05/15/2024 12:0 0 PM EST us Abelino Whitfield MD POINT OF CARE TEST EN TER/EDIT ORDERABLES Final Result * POCT Glucose (05/15/2024 12:00 PM EST) Pathologist [facility] Glucose Blood, POC 112 60 - 200 mg/dL QC Media Lot # [id number] Lot# Expiration Date [id number] Blood Capillary blood specimen / Unknown 05/15/2024 12:00 PM EST Abelino Whitfield MD POINT OF CARE TEST EN TER/EDIT ORDERABLES Final Result * Hepatitis C Antibody with Reflex to HCV, RNA, Quantitative, Real-Time PCR (02/21/2024 8:25 AM EDT) [facility] Hepatitis C Antibody Nonreactive Nonreactive [facility] Comment:Antibodies to HCV no t detected; does not exclude early acuteHCV infection. Blood Venous blood specimen / Unknown 02/21/2024 8:25 AM EDT 02/21/2024 11:11 AM EDT Abelino Whitfield MD LAB BLOOD ORDERABLES Final Result [facility] [address] [place] [address] [phone] * BI Mammogram Screening Tomosynthesis Bilateral (07/21/2023 10:16 AM EDT) Anatomical Region Laterality Modality Breast Bilateral Mammography 07/21/2023 10:1 6 AM EDT Narrative 08/11/2023 8:52 AM EDT ? [facility] ? [address] ?[place] [address] ? Mammography Report ? Signed ? Patient: Vizcarrondo,Mercedes ?MR#: [id number] ?? [id number] ? : 1950 ?Acct:[id number] ? Age/Sex: 73 / F ?ADM Date: 03/14/24 ? Loc: HO.MAMMO ? Attending Dr: Abelino Maddox MD ? Ordering Physician: Abelino Maddox MD ?Resu ?? lts: 2Benign Findings ? Date of Service: 07/21/23 ?Follow Up: 1 Year From Orig ?? inal Mammogram ? Procedure(s): MM tomosynthesis screening BI ?? Accession Number(s): [id number] ? cc: Abelino Maddox MD ? EXAMINATION: [...] 0849 ? DD/ 1016 ? TD/TT: ? Lift Driver: ? Procedure Note Donliorter, Image - 08/11/2023 [facility] [address] [place] [address] Mammography Report Signed Patient: Ronnell Foley#: [id number] : 1Acct:[id number] Age/Sex: 73 / FADM Date: 07/21/23 Loc: HO.MAMMO Attending Dr: Abelino Maddox MD Ordering Physician: Abelino Maddox MDResu lts: 2Benign Findings Date of Service: 07/21/23Follow Up: 1 Year From Orig inal Mammogram Procedure(s): MM tomosynthesis screening BI Accession Number(s): [id number] cc: Abelino Maddox MD EXAMINATION: MM SCREENING [...] in OV> 08/11/23 0849 DD/ 1016 TD/TT: Lift Driver: Abelino Whitfield MD IMG BI PROCEDURES Fin al Result * Lipid Panel, Standard (04/13/2022 8:46 AM EST) Cholesterol, Total 138 <200 mg/dL [facility] [employer] [facility] HDL Cholesterol 56 > OR = 50 mg/dL [facility] Triglycerides 72 <150 mg/dL [facility] LDL Cholesterol 67 mg/dL (calc) [facility] Comment: Reference range: <100 Desirable range <100 mg/dL for primary prevention; ?? <70 mg/dL for patients with CHD or diabetic patients with > or = 2 CHD risk factors. LDL-C is now calculated using the Escobar-Nia calculation, which is a validated novel method providing better accuracy than the Friedewald equation in the estimation of LDL-C. Escobar SS et al. CADY. 2013;310(19): 3879-2134 (http://education.[employer]/faq/ASP818) Chol/HDLC Ratio 2.5 <5.0 (calc) [facility] Non-HDL Cholesterol 82 <130 mg/dL (calc) [facility] Comment: For patients with diabetes plus 1 major ASCVD risk factor, treating to a non-HDL-C goal of <100 mg/dL (LDL-C of <70 mg/dL) is considered a therapeutic option. 04/13/2022 8:46 AM EST 04/13/2022 8:47 AM EST Narrative [facility] - 04/13/2022 11:31 PM EST FASTING:YES FASTING: YES Abelino Whitfield MD LAB BLOOD ORDERABLES Final Result Performing Organization Address City/[facility]/ZIP Co de Phone Number [facility] [address], [place] [phone] [facility] [address], [facility] [place] [address] * Colonoscopy (09/03/2021 8:02 AM EDT) Hans Killian MD HEALTH MAINTENANCE Final Result * ALBUMIN, RANDOM URINE W/CREATININE (03/11/2021 8:33 AM EDT) Microalbumin Urine 2.6 See Note: mg/dL [facility] Comment: Reference Range: ?? Reference [...] [facility] 03/11/2021 8:33 AM EDT Abelino Whitfield MD LAB URINE ORDERABLES Final Result Performing Organization Address City/[facility]/ZIP Co de Phone Number [facility] [address] [place] [address], from Last 3 Months or Most Recently Relevant to Health Maintenance Insurance Care Teams Internet Webmaster Relationship Specialty Start Date End Date Abelino Montenegro MD [address] [place] [address] PCP - General Internal Medicine 03/10/21
--- OUTSIDE RECORDS SUMMARY | 2024-07-12 14:24 | XMS_ITS | Encounter Summary ---
Author Organization [employer] Address [address] [facility] 7t [place] [address] Care Team Providers Care Elevator Operator Freight Name Role Phone Abelino Montenegro MD Primary Care Provide r Reason for Visit * Reason Comments Med Refill Encounter Details Date Type Department Care Team ([facility] st Contact Info) Description 07/02/2024 Refill [facility] MEDICINE [address] [place] [address] Abelino Montenegro MD 230 [place] [address] Dermatitis; Seasonal allergies Social History Tobacco Use [...] Description 07/13/2024 1:45 PM EST Office Visit [facility] MEDICINE [address] [place] [address] Toby Sage MD [address] [place] [address] 09/11/2024 11:15 AM EDT Office Visit [facility] MEDICINE [address] [place] [address] Abelino Montenegro MD [address] [place] [address] documented as of this encounter Visit Diagnoses Diagnosis Dermatitis Contact dermatitis and other eczema, due to unspecified cause Seasonal allergies Allergic rhinitis, cause unspecified documented in this encounter Additional Health Concerns Assessment Noted Time PHQ-9 Depression Total Score: 4 11/03/19 24 1:09 PM EDT documented as of this encounter Care Teams Elevator Operator Freight Relationship Specialty Start Date End Date Abelino Montenegro MD [address] [place] [address] PCP - General Internal Medicine 03/10/21 documented as of this encounter
--- OUTSIDE RECORDS SUMMARY | 2024-07-12 14:24 | XMS_ITS | Encounter Summary ---
Author Organization [employer] Address 75 [facility] 7t [place] [address] Care Team Providers Care Brick Setter Name Role Phone Abelino Montenegro MD Primary Care Provide r Reason for Visit * Reason Comments Med Refill Encounter Details Date Type Department Care Team ([facility] st Contact Info) Description 03/04/2023 Refill [facility] MEDICINE [address] [place] [address] Abelino Montenegro MD 230 [place] [address] Social History Tobacco Use Types Packs/Day Years [...] Office Visit [facility] MEDICINE [address] [place] [address] Toby Sage MD [address] [place] [address] 09/11/2024 11:15 AM EDT Office Visit [facility] MEDICINE [address] [place] [address] Abelino Montenegro MD 230 [place] [address] documented as of this encounter Visit Diagnoses Not on filedocumented in this encounter Additional Health Concerns Assessment Noted Time PHQ-9 Depression Total Score: 0 09/02/19 23 11:43 AM EDT documented as of this encounter Care Teams Brick Setter Relationship Specialty Start Date End Date Abelino Montenegro MD [address] [place] [phone] PCP - General Internal Medicine 03/10/21 documented as of this encounter
--- OUTSIDE RECORDS SUMMARY | 2024-07-12 14:24 | XMS_ITS | Encounter Summary ---
Author Organization [employer] Address [address] [facility] [address] 7t [place] [address] Care Team Providers Care Curtain Mender Name Role Phone Abelino Montenegro MD Primary Care Provide r Reason for Visit * Reason Comments Med Refill Encounter Details Date Type Department Care Team ([facility] st Contact Info) Description 09/03/2023 Refill [facility] [address] [place], [place] [phone] Abelino Montenegro MD 230 [place], [place] [phone] Social History Tobacco Use Types Packs/Day Years [...] Description 07/13/2024 1:45 PM EST Office Visit [facility] MEDICINE [address] [place] [address] Toby Sage MD [address] [place] [address] 09/11/2024 11:15 AM EDT Office Visit [facility] MEDICINE [address] [place] [address] Abelino Montenegro MD [address] [place] [address] documented as of this encounter Visit Diagnoses Not on filedocumented in this encounter Additional Health Concerns Assessment Noted Time PHQ-9 Depression Total Score: 0 09/02/19 23 11:43 AM EDT documented as of this encounter Care Teams Curtain Mender Relationship Specialty Start Date End Date Abelino Montenegro MD [address] [place] [address] PCP - General Internal Medicine 03/10/21 documented as of this encounter
--- OUTSIDE RECORDS SUMMARY | 2024-07-12 14:24 | XMS_ITS | Encounter Summary ---
Author Organization [employer] Address 75 [facility] 7t [place] [address] Care Team Providers Care Car Barn Laborer Name Role Phone Abelino Montenegro MD Primary Care Provide r Reason for Visit * Reason Onset Date Comments Med Refill 02/18/2023 Encounter Details Date Type Department Care Team ([facility] st Contact Info) Description 02/18/2023 Telephone [facility] MEDICINE [address] [place] [address] Abelino Montenegro MD 230 [place] [address] Med Refill Social History Tobacco Use Types [...] Miscellaneous Notes * Telephone Encounter - Nella Chetan - 02/18/2023 1:50 PM EDT Tc from pt requesting medication refill on tramadol 50 mg tablet to be sent to [id number] [place] - [address] [place] [address] documented in this encounter Plan of Treatment Upcoming Encounters Date Type Department Care Team (Late st Contact Info) Description 07/13/2024 1:45 PM EST Office Visit [facility] MEDICINE [address] [place] [phone] Toby Sage MD [address] [place] [phone] 09/11/2024 11:15 AM EDT Office Visit [facility] MEDICINE [address] [place] [address] Abelino Montenegro MD [address] [place] [address] documented as of this encounter Visit Diagnoses Not on filedocumented in this encounter Additional Health Concerns Assessment Noted Time PHQ-9 Depression Total Score: 0 09/02/19 23 11:43 AM EDT documented as of this encounter Care Teams Car Barn Laborer Relationship Specialty Start Date End Date Abelino Montenegro MD [address] [place] [phone] PCP - General Internal Medicine 03/10/21 documented as of this encounter
--- OUTSIDE RECORDS SUMMARY | 2024-07-12 14:24 | XMS_ITS | Encounter Summary ---
Author Organization [employer] Address [address] [facility] 7t [place] [address] Care Team Providers Care Paint Stripper Name Role Phone Abelino Montenegro MD Primary Care Provide r Reason for Visit * Reason Onset Date Comments Med Refill 03/11/2023 Encounter Details Date Type Department Care Team ([facility] st Contact Info) Description 03/11/2023 Telephone [facility] MEDICINE [address] [place] [address] Abelino Montenegro MD [address] [place] [address] Med Refill Social History Tobacco Use Types [...] EDT Medication was sent on 02/17/23 to [facility] for refill. * Telephone Encounter - Chauncey Whitfield - 03/11/2023 11:19 AM EDT Tc concetta Woodson at [facility] requesting a new script for pregabalin (Lyrica) 100 MG capsulee. documented in this encounter Plan of Treatment Upcoming Encounters Date Type Department Care Team (Late st Contact Info) Description 07/13/2024 1:45 PM EST Office Visit [facility] MEDICINE [address] [place] [address] Toby Sage MD [address] [place] [phone] 09/11/2024 11:15 AM EDT Office Visit [facility] MEDICINE [address] [place] [address] [phone] Abelino Montenegro MD [address] [place] [phone] documented as of this encounter Visit Diagnoses Not on filedocumented in this encounter Additional Health Concerns Assessment Noted Time PHQ-9 Depression Total Score: 0 09/02/19 23 11:43 AM EDT documented as of this encounter Care Teams Paint Stripper Relationship Specialty Start Date End Date Abelino Montenegro MD [address] [place] [address] PCP - General Internal Medicine 03/10/21 documented as of this encounter
--- OUTSIDE RECORDS SUMMARY | 2024-07-12 14:24 | XMS_ITS | Clinical Summary ---
Author Organization [employer] Address [address] [place] [phone] Care Team Providers Care Clip On Sunglasses Inspector Name Role Phone Unavailable Primary Care Provider [...] EDT) Glucose 233(H) 70 - 100 mg/dL [facility] BUN 7 7 - 20 mg/dL [facility] Creatinine 0.6 0.5 - 1.2 mg/dL [facility] BUN/Creatinine Ratio 11.7 10.0 - 20.0 [facility] Anion Gap 11 7 - 16 [facility] CO2 21.8(L) 22.0 - 30.0 mmol/L [facility] Chloride 104 96 - 106 mmol/L [facility] Sodium 137 135 - 145 mmol/L [facility] Potassium 4.3 3.5 - 5.0 mmol/L [facility] Calcium 9.1 8.8 - 10.2 mg/dL [facility] 01/14/2011 3:30 AM EDT us Shakira LEWIS LAB BLOOD ORDERABLES Final Resul t [facility] [address] [place] [phone] from Last 3 Months or Most Recently Relevant to Health Maintenance
--- OUTSIDE RECORDS SUMMARY | 2024-07-12 14:24 | XMS_ITS | Encounter Summary ---
Author Organization [employer] Address 75 [facility] 7t [place] [address] Care Team Providers Care Shelter Supervisor Name Role Phone Abelino Montenegro MD Primary Care Provide r Reason for Visit * Reason Comments Med Refill Encounter Details Date Type Department Care Team ([facility] st Contact Info) Description 07/26/2023 Refill [facility] MEDICINE [address] [place] [address] Abelino Montenegro MD 230 [place] [address] Social History Tobacco Use Types Packs/Day Years [...] [facility] MEDICINE [address] [place] [address] 40685 Toby Sage MD [address] [place] [address] 260[address] 09/11/2024 11:15 AM EDT Office Visit [facility] MEDICINE [address] [place] [address] 53286 Abelino Montenegro MD 230 [place] [address] documented as of this encounter Visit Diagnoses Not on filedocumented in this encounter Additional Health Concerns Assessment Noted Time PHQ-9 Depression Total Score: 0 09/02/19 23 11:43 AM EDT documented as of this encounter Care Teams Shelter Supervisor Relationship Specialty Start Date End Date Abelino Montenegro MD [address] [place] [address] 93995 PCP - General Internal Medicine 03/10/21 documented as of this encounter
--- OUTSIDE RECORDS SUMMARY | 2024-07-12 14:24 | XMS_ITS | Encounter Summary ---
Author Organization [employer] Address [address] [facility] [address] 7t [place] [address] Care Team Providers Care Chocolate Finisher Operator Name Role Phone Abelino Montenegro MD Primary Care Provide r Reason for Visit * Reason Comments Med Refill Encounter Details Date Type Department Care Team ([facility] st Contact Info) Description 09/14/2023 Refill [facility] CHC MED & PEDS [address] [place], [place] [phone] Abelino Montenegro MD 230 [place], [place] [phone] Social History Tobacco Use Types Packs/Day Years [...] Description 07/13/2024 1:45 PM EST Office Visit [facility] MEDICINE [address] [place] [address] 58798 Toby Sage MD [address] [place] [address] 53[address] 09/11/2024 11:15 AM EDT Office Visit [facility] MEDICINE [address] [place] [address] 13846 Abelino Montenegro MD [address] [place] [address] documented as of this encounter Visit Diagnoses Not on filedocumented in this encounter Additional Health Concerns Assessment Noted Time PHQ-9 Depression Total Score: 0 09/02/19 23 11:43 AM EDT documented as of this encounter Care Teams Chocolate Finisher Operator Relationship Specialty Start Date End Date Abelino Montenegro MD [address] [place] [address] 0[address]11 PCP - General Internal Medicine 03/10/21 documented as of this encounter
--- OUTSIDE RECORDS SUMMARY | 2024-07-12 14:25 | XMS_ITS | Encounter Summary ---
Author Organization [employer] Address 75 [facility] 7t [place] [address] Care Team Providers Care Shotblaster Name Role Phone Abelino Montenegro MD Primary Care Provide r Reason for Visit * Reason Comments Med Refill Encounter Details Date Type Department Care Team (Late Contact Info) Description 10/08/2022 Refill [facility] MEDICINE [address] [place] [address] 337[address] Abelino Montenegro MD [address] [place] [address] 355[address] Social History Tobacco Use Types Packs/Day Years [...] Description 07/13/2024 1:45 PM EST Office Visit [facility] MEDICINE [address] [place], [place] [address] [place] [address] Toby Sage MD [address] [facility] [place] [phone] 09/11/2024 11:15 AM EDT Office Visit [facility] MED[facility] [address] [facility] [place] [phone] Abelino Montenegro MD 230 [facility] [place], [place] [phone] documented as of this encounter Visit Diagnoses Not on filedocumented in this encounter Additional Health Concerns Assessment Noted Time PHQ-9 Depression Total Score: 0 09/02/19 23 11:43 AM EDT documented as of this encounter Care Teams Shotblaster Relationship Specialty Start Date End Date Abelino Montenegro MD [facility] [place], [place] [phone] PCP - General Internal Medicine 03/10/21 documented as of this encounter
--- OUTSIDE RECORDS SUMMARY | 2024-07-12 14:25 | XMS_ITS | Encounter Summary ---
Author Organization [employer] Address [address] [facility] [address] 7t [place] [address] Care Team Providers Care Head Field Hockey Coach Name Role Phone Abelino Montenegro MD Primary Care Provide r Reason for Visit * Reason Comments Med Refill Encounter Details Date Type Department Care Team ([facility] st Contact Info) Description 01/17/[address] [facility] CHC MED & PEDS [address] [place], [place] [phone] Abelino Montenegro MD 230 [place] [address] Social History Tobacco Use Types Packs/Day Years [...] PM EST Office Visit [facility] MEDICINE [address] [place] [address] 83161 Toby Sage MD [address] [place] [address] 38999 09/11/2024 11:15 AM EDT Office Visit [facility] MEDICINE [address] [place] [address] 72[address] Abelino Montenegro MD [address] [place] [address] 9[address] documented as of this encounter Visit Diagnoses Not on filedocumented in this encounter Additional Health Concerns Assessment Noted Time PHQ-9 Depression Total Score: 4 11/03/19 24 1:09 PM EDT documented as of this encounter Care Teams Head Field Hockey Coach Relationship Specialty Start Date End Date Abelino Montenegro MD [address] [place] [address] 77116 PCP - General Internal Medicine 03/10/21 documented as of this encounter
--- OUTSIDE RECORDS SUMMARY | 2024-07-12 14:25 | XMS_ITS | Encounter Summary ---
Author Organization [employer] Address [address] [facility] [address] 7t [place] [address] Care Team Providers Care Supervisor Yard Name Role Phone Abelino Montenegro MD Primary Care Provide r Reason for Visit * Reason Comments Med Refill Encounter Details Date Type Department Care Team ([facility] st Contact Info) Description 02/07/2024 Refill [facility] CHC MED & PEDS [address] [place], [place] [phone] Abelino Montenegro MD 230 [place] [address] Social History Tobacco Use Types Packs/Day Years [...] Description 07/13/2024 1:45 PM EST Office Visit [facility] MEDICINE [address] [place] [address] 6[address] Toby Sage MD [address] [place] [address] 05[address] 09/11/2024 11:15 AM EDT Office Visit [facility] MEDICINE [address] [place] [address] 50875 Abelino Montenegro MD [address] [place] [address] 65[address] documented as of this encounter Visit Diagnoses Not on filedocumented in this encounter Additional Health Concerns Assessment Noted Time PHQ-9 Depression Total Score: 4 11/03/19 24 1:09 PM EDT documented as of this encounter Care Teams Supervisor Yard Relationship Specialty Start Date End Date Abelino Montenegro MD [address] [place] [address] 26636 PCP - General Internal Medicine 03/10/21 documented as of this encounter
--- OUTSIDE RECORDS SUMMARY | 2024-07-12 14:25 | XMS_ITS | Encounter Summary ---
Author Organization [employer] Address 75 [facility] 7t [place] [address] Care Team Providers Care Bevel Operator Name Role Phone Abelino Montenegro MD Primary Care Provide r Reason for Visit * Reason Comments Med Refill Encounter Details Date Type Department Care Team (Late Contact Info) Description 01/01/2023 Refill [facility] MEDICINE [address] [place] [address] [phone] Abelino Montenegro MD [address] [place] [address] [phone] Benign hypertension Social History Tobacco Use Types [...] Description 07/13/2024 1:45 PM EST Office Visit [facility] MEDICINE [address] [place] [address] 55383 Toby Sage MD 230 [place], [place] [phone] 09/11/2024 11:15 AM EDT Office Visit [facility] MEDICINE 230 [place] [address] Abelino Montenegro MD 230 [place] [address] documented as of this encounter Visit Diagnoses Diagnosis Benign hypertension Essential hypertension, benign documented in this encounter Additional Health Concerns Assessment Noted Time PHQ-9 Depression Total Score: 0 09/02/19 23 11:43 AM EDT documented as of this encounter Care Teams Bevel Operator Relationship Specialty Start Date End Date Abelino Montenegro MD [facility] [place] [address] PCP - General Internal Medicine 03/10/21 documented as of this encounter
--- OUTSIDE RECORDS SUMMARY | 2024-07-12 14:25 | XMS_ITS | Encounter Summary ---
Author Organization [employer] Address 75 [facility] 7t [place] [address] Care Team Providers Care Rubber Belt Splicer Name Role Phone Abelino Montenegro MD Primary Care Provide r Reason for Visit * Reason Comments Med Refill Encounter Details Date Type Department Care Team ([facility] Contact Info) Description 09/14/2022 Refill [facility] MEDICINE 230 [place] [address] Kimberlyn Phillips MD 505 [place] [address] Gastroesophageal reflux disease without esophagitis Social History [...] Description 07/13/2024 1:45 PM EST Office Visit [facility] MEDICINE 230 [place] [address] Toby Sage MD 230 [place] [address] 09/11/2024 11:15 AM EDT Office Visit [facility] MEDICINE [address] [place] [address] Abelino Montenegro MD [address] [place] [address] documented as of this encounter Visit Diagnoses Diagnosis Gastroesophageal reflux disease without esophagitis Esophageal reflux documented in this encounter Additional Health Concerns Assessment Noted Time PHQ-9 Depression Total Score: 0 09/02/19 23 11:43 AM EDT documented as of this encounter Care Teams Rubber Belt Splicer Relationship Specialty Start Date End Date Abelino Montenegro MD [address] [place] [address] PCP - General Internal Medicine 03/10/21 documented as of this encounter
--- OUTSIDE RECORDS SUMMARY | 2024-07-12 14:25 | XMS_ITS | Encounter Summary ---
Author Organization [employer] Address 75 [facility] 7t [place] [address] Care Team Providers Care Plater Hot Dip Name Role Phone Abelino Montenegro MD Primary Care Provide r Reason for Visit * Reason Comments Med Refill Encounter Details Date Type Department Care Team (Late st Contact Info) Description 12/18/2022 Refill [facility] CLINIC 230 [place], [place] [phone] [facility] 230 [place], [place] [phone] Essential hypertension Social History Tobacco Use Types [...] Description 07/13/2024 1:45 PM EST Office Visit [facility] MEDICINE 230 [place] [address] Toby Sage MD 230 [place], [place] [phone] 09/11/2024 11:15 AM EDT Office Visit [facility] MEDICINE 230 [facility] [place] [address] Abelino Montenegro MD 230 [facility] [place] [address] documented as of this encounter Visit Diagnoses Diagnosis Essential hypertension Unspecified essential hypertension documented in this encounter Additional Health Concerns Assessment Noted Time PHQ-9 Depression Total Score: 0 09/02/19 23 11:43 AM EDT documented as of this encounter Care Teams Plater Hot Dip Relationship Specialty Start Date End Date Abelino [place] [address] PCP - General Internal Medicine 03/10/21 documented as of this encounter
--- OUTSIDE RECORDS SUMMARY | 2024-07-12 14:25 | XMS_ITS | Encounter Summary ---
Author Organization [employer] Address [address] [facility] [address] 7t [place] [address] Care Team Providers Care Spark Tester Name Role Phone Abelino Montenegro MD Primary Care Provide r Reason for Visit * Reason Comments Med Refill Encounter Details Date Type Department Care Team ([facility] st Contact Info) Description 01/18/2024 Refill [facility] CHC MED & PEDS [address] [place], [place] [phone] Abelino Montenegro MD 230 [place] [address] Social History Tobacco Use Types Packs/Day Years [...] Description 07/13/2024 1:45 PM EST Office Visit [facility] MEDICINE [address] [place] [address] 18873 Toby Sage MD [address] [place] [address] 23447 09/11/2024 11:15 AM EDT Office Visit [facility] MEDICINE [address] [place] [address] 35742 Abelino Montenegro MD [address] [place] [address] 41221 documented as of this encounter Visit Diagnoses Not on filedocumented in this encounter Additional Health Concerns Assessment Noted Time PHQ-9 Depression Total Score: 4 11/03/19 24 1:09 PM EDT documented as of this encounter Care Teams Spark Tester Relationship Specialty Start Date End Date Abelino Montenegro MD [address] [place] [address] 92151 PCP - General Internal Medicine 03/10/21 documented as of this encounter
--- OUTSIDE RECORDS SUMMARY | 2024-07-12 14:25 | XMS_ITS | Encounter Summary ---
Author Organization [employer] Address [address] [facility] [address] 7t [place] [address] Care Team Providers Care Film Examiner Name Role Phone Abelino Montenegro MD Primary Care Provide r Reason for Visit * Reason Comments Med Refill Encounter Details Date Type Department Care Team ([facility] st Contact Info) Description 01/25/2024 Refill [facility] CHC MED & PEDS [address] [place], [place] [phone] bAelino Montenegro MD 230 [place] [address] Social History Tobacco Use Types Packs/Day Years [...] Description 07/13/2024 1:45 PM EST Office Visit [facility] MEDICINE [address] [place] [address] 83535 Toby Sage MD [address] [place] [address] 79143 09/11/2024 11:15 AM EDT Office Visit [facility] MEDICINE [address] [place] [address] 43525 Abelino Montenegro MD [address] [place] [address] 09719 documented as of this encounter Visit Diagnoses Not on filedocumented in this encounter Additional Health Concerns Assessment Noted Time PHQ-9 Depression Total Score: 4 11/03/19 24 1:09 PM EDT documented as of this encounter Care Teams Film Examiner Relationship Specialty Start Date End Date Abelino Montenegro MD [address] [place] [address] [phone] PCP - General Internal Medicine 03/10/21 documented as of this encounter
--- OUTSIDE RECORDS SUMMARY | 2024-07-12 14:25 | XMS_ITS | Encounter Summary ---
Author Organization [employer] Address 75 [facility] 7t [place] [address] Care Team Providers Care Unclaimed Property Manager Name Role Phone Abelino Montenegro MD Primary Care Provide r Reason for Visit * Reason Comments Med Refill Encounter Details Date Type Department Care Team ([facility] st Contact Info) Description 11/03/2023 Refill [facility] MEDICINE 230 [place] [address] Debbie Jaime MD 230 [place] [address] Gastroesophageal reflux disease without esophagitis Social History [...] Description 07/13/2024 1:45 PM EST Office Visit [facility] MEDICINE [address] [place] [address] 10533 Toby Sage MD [address] [place] [address] 66599 09/11/2024 11:15 AM EDT Office Visit [facility] MEDICINE [address] [place] [address] 27938 Abelino Montenegro MD [address] [place] [address] 6[address]75 documented as of this encounter Visit Diagnoses Diagnosis Gastroesophageal reflux disease without esophagitis Esophageal reflux documented in this encounter Additional Health Concerns Assessment Noted Time PHQ-9 Depression Total Score: 4 11/03/19 24 1:09 PM EDT documented as of this encounter Care Teams Unclaimed Property Manager Relationship Specialty Start Date End Date Abelino Montenegro MD [address] [place] [address] 84378 PCP - General Internal Medicine 03/10/21 documented as of this encounter
--- OUTSIDE RECORDS SUMMARY | 2024-07-12 14:25 | XMS_ITS | Encounter Summary ---
Author Organization [employer] Address 75 [facility] 7t [place] [address] Care Team Providers Care Oil Fire Specialist Name Role Phone Abelino Montenegro MD Primary Care Provide r Reason for Visit * Reason Comments Med Refill Encounter Details Date Type Department Care Team ([facility] st Contact Info) Description 12/14/2023 Refill [facility]BILE VACCINE CLINIC 230 [place], [place] [phone] Abelino Montenegro MD 230 [place] [address] Seasonal allergies; Essential hypertension Social History Tobacco [...] Office Visit [facility] MEDICINE [address] [place] [address] 72324 Toby Sage MD [address] [place] [address] 53472 09/11/2024 11:15 AM EDT Office Visit [facility] MEDICINE [address] [place] [address] 45283 Abelino Montenegro MD [address] [place] [address] 89293 documented as of this encounter Visit Diagnoses Diagnosis Seasonal allergies Allergic rhinitis, cause unspecified Essential hypertension Unspecified essential hypertension documented in this encounter Additional Health Concerns Assessment Noted Time PHQ-9 Depression Total Score: 4 11/03/19 24 1:09 PM EDT documented as of this encounter Care Teams Oil Fire Specialist Relationship Specialty Start Date End Date Abelino Montenegro MD [address] [place] [address] 13283 PCP - General Internal Medicine 03/10/21 documented as of this encounter
--- OUTSIDE RECORDS SUMMARY | 2024-07-12 14:25 | XMS_ITS | Encounter Summary ---
Author Organization [employer] Address 75 [facility] 7t [place] [address] Care Team Providers Care Vehicle Service Attendant Name Role Phone Abelino Montenegro MD Primary Care Provide r Reason for Visit * Reason Comments Med Refill Encounter Details Date Type Department Care Team ([facility] st Contact Info) Description 11/11/2023 Refill [facility] MEDICINE 230 [place] [address] Abelino Montenegro MD 230 [place] [address] Type 2 diabetes mellitus without complication, without long-term current use of insulin ([facility]); Mild intermittent asthma without complication; Benign [...] 07/13/2024 1:45 PM EST Office Visit [facility] MEDICINE [address] [place] [address] 78043 Toby Sage MD [address] [place] [address] 50914 09/11/2024 11:15 AM EDT Office Visit [facility] MEDICINE [address] [place] [address] 14985 Abelino Montenegro MD [address] [place] [address] 45256 documented as of this encounter Visit Diagnoses Diagnosis Type 2 diabetes mellitus without complication, without long-term current use of insulin ([facility]) Mild intermittent asthma without complication Benign hypertension Essential hypertension, benign documented in this encounter Additional Health Concerns Assessment Noted Time PHQ-9 Depression Total Score: 4 11/03/19 24 1:09 PM EDT documented as of this encounter Care Teams Vehicle Service Attendant Relationship Specialty Start Date End Date Abelino Montenegro MD [address] [place] [address] 8[address]12 PCP - General Internal Medicine 03/10/21 documented as of this encounter
--- OUTSIDE RECORDS SUMMARY | 2024-07-12 14:25 | XMS_ITS | Encounter Summary ---
Author Organization [employer] Address 75 [facility] 7t [place] [address] Care Team Providers Care Cartographic Engineer Name Role Phone Abelino Montenegro MD Primary Care Provide r Reason for Visit * Reason Comments Med Refill Encounter Details Date Type Department Care Team ([facility] st Contact Info) Description 01/07/2023 Refill [facility] MEDICINE 230 [place] [address] Abelino Montenegro MD 230 [place] [address] Social History Tobacco Use Types Packs/Day Years [...] below as STAT. Telephone call placed to [facility] GI. Spoke to RN whostates will give to provider for review DIONY and will follow up with pt. * Telephone Encounter - Marquita Zuleta RN - 01/20/2023 12:03 PM EDT ----- Message from Abelino [place] MD sent at 01/19/2023 2:57 PM EDT ----- CT of Abdomen done at [facility] worrisome for gastritis or ulcer disease, mass cannot be excluded, Pleasefax report to [facility] Gastroenterology ( She is their patient ) to make sure they are aware of the CT findings. Let me know documented in this encounter Plan of Treatment Upcoming Encounters Date Type Department Care Team (Late st Contact Info) Description 07/13/2024 1:45 PM EST Office Visit [facility] MEDICINE [address] [place] [address] 28558 Toby Sage MD 230 [place] [address] 09/11/2024 11:15 AM EDT Office Visit [facility] MEDICINE [address] [place] [address] Abelino Montenegro MD 230 [place] [address] documented as of this encounter Visit Diagnoses Not on filedocumented in this encounter Additional Health Concerns Assessment Noted Time PHQ-9 Depression Total Score: 0 09/02/19 23 11:43 AM EDT documented as of this encounter Care Teams Cartographic Engineer Relationship Specialty Start Date End Date Abelino Montenegro MD [address] [place] [address] 84203 PCP - General Internal Medicine 03/10/21 documented as of this encounter
--- OUTSIDE RECORDS SUMMARY | 2024-07-12 14:25 | XMS_ITS | Encounter Summary ---
Author Organization [employer] Address 75 [facility] 7t [place] [address] Care Team Providers Care Cloth Printing Inspector Name Role Phone Abelino Montenegro MD Primary Care Provide r Encounter Details Date Type Department Care Team ([facility] Contact Info) Description 06/30/[address] [facility] CHC MED & PEDS 505 [place], [place] [phone] Viv Barnard LPN Social History Tobacco Use [...] 07/13/2024 1:45 PM EST Office Visit [facility] MEDICINE [address] [place] [address] [phone] Toby Sage MD [address] [place] [address] [phone] 09/11/2024 11:15 AM EDT Office Visit [facility] MEDICINE [address] [place] [address] [phone] Abelino Montenegro MD 230 [place] [address] documented as of this encounter Visit Diagnoses Not on filedocumented in this encounter Additional Health Concerns Assessment Noted Time PHQ-9 Depression Total Score: 0 06/29/19 23 1:07 PM EST documented as of this encounter Care Teams Cloth Printing Inspector Relationship Specialty Start Date End Date Abelino Montenegro MD 230 [place] [address] PCP - General Internal Medicine 03/10/21 documented as of this encounter
--- OUTSIDE RECORDS SUMMARY | 2024-07-12 14:25 | XMS_ITS | Encounter Summary ---
Author Organization [employer] Address 75 [facility] 7t [place] [address] Care Team Providers Care Php Web Developer Name Role Phone Abelino Montenegro MD Primary Care Provide r Reason for Visit * Reason Comments Med Refill Encounter Details Date Type Department Care Team ([facility] st Contact Info) Description 10/25/2023 Refill [facility]INE [address] [place] [address] Debbie Jaime MD 230 [place] [address] Gastroesophageal reflux disease without esophagitis Social History [...] Description 07/13/2024 1:45 PM EST Office Visit [facility] [address] [place] [phone] Toby Sage MD [address] [place] [phone] 09/11/2024 11:15 AM EDT Office Visit [facility] [address] [place] [phone] Abelino Montenegro MD [address] [place] [address] documented as of this encounter Visit Diagnoses Diagnosis Gastroesophageal reflux disease without esophagitis Esophageal reflux documented in this encounter Additional Health Concerns Assessment Noted Time PHQ-9 Depression Total Score: 0 09/02/19 23 11:43 AM EDT documented as of this encounter Care Teams Php Web Developer Relationship Specialty Start Date End Date Abelino Montenegro MD [address] [place] [phone] PCP - General Internal Medicine 03/10/21 documented as of this encounter
--- OUTSIDE RECORDS SUMMARY | 2024-07-12 14:25 | XMS_ITS | Encounter Summary ---
Author Organization [employer] Address 75 [facility] 7t [place] [address] Care Team Providers Care Physicist Astrophysics Name Role Phone Abelino Montenegro MD Primary Care Provide r Encounter Details Date Type Department Care Team ([facility] Contact Info) Description 09/16/2022 Abstract [facility] MED[facility]INE [address] [place] [phone] Abelino Montenegro MD [address] [place] [address] [phone] Social History Tobacco Use Types Packs/Day Years [...] 1:45 PM EST Office Visit [facility] [address] [place] [address] [phone] Toby Sage MD [address] [facility] [place] [phone] 09/11/2024 11:15 AM EDT Office Visit [facility] [address] [facility] [place] [phone] Abelino Montenegro MD 230 [facility] [place], [place] [phone] documented as of this encounter Visit Diagnoses Not on filedocumented in this encounter Additional Health Concerns Assessment Noted Time PHQ-9 Depression Total Score: 0 09/02/19 23 11:43 AM EDT documented as of this encounter Care Teams Physicist Astrophysics Relationship Specialty Start Date End Date Abelino Montenegro MD [facility] [place], [place] [phone] PCP - General Internal Medicine 03/10/21 documented as of this encounter
--- OUTSIDE RECORDS SUMMARY | 2024-07-12 14:25 | XMS_ITS | Encounter Summary ---
Author Organization [employer] Address 75 [facility] 7t [place] [address] Care Team Providers Care Protective Services Case Worker Name Role Phone Abelino Montenegro MD Primary Care Provide r Reason for Visit * Reason Comments Med Refill Encounter Details Date Type Department Care Team ([facility] st Contact Info) Description 11/18/2023 Refill [facility] 230 [place] [address] Abelino Montenegro MD 230 [place] [address] Benign hypertension; Type 2 diabetes mellitus without complication, without long-term current use of insulin ([facility]); Mild intermittent asthma without complication [...] EST Office Visit [facility]INE [address] [place] [phone] Toby Sage MD [address] [place] [phone] 09/11/2024 11:15 AM EDT Office Visit [facility] [address] [place] [address] Abelino Montenegro MD [address] [place] [address] documented as of this encounter Visit Diagnoses Diagnosis Benign hypertension Essential hypertension, benign Type 2 diabetes mellitus without complication, without long-term current use of insulin ([facility]) Mild intermittent asthma without complication documented in this encounter Additional Health Concerns Assessment Noted Time PHQ-9 Depression Total Score: 4 11/03/19 24 1:09 PM EDT documented as of this encounter Care Teams Protective Services Case Worker Relationship Specialty Start Date End Date Abelino Montenegro MD [address] [place] [phone] PCP - General Internal Medicine 03/10/21 documented as of this encounter
--- OUTSIDE RECORDS SUMMARY | 2024-07-12 14:25 | XMS_ITS | Encounter Summary ---
Author Organization [employer] Address 75 [facility] 7t [place] [address] Care Team Providers Care Dialysis Chief Equipment Technician Name Role Phone Abelino Montenegro MD Primary Care Provide r Encounter Details Date Type Department Care Team ([facility] Contact Info) Description 09/15/2022 Abstract [facility] MEDICINE [address] [place] [address] Abelino Montenegro MD [address] [place] [address] [phone] Social History Tobacco Use Types Packs/Day Years [...] Upcoming Encounters Date Type Department Care Team ([facility] Contact Info) Description 07/13/2024 1:45 PM EST Office Visit [facility] MEDICINE [address] [place] [address] [phone] Toby Sage MD 230 [facility] [place] [phone] 09/11/2024 11:15 AM EDT Office Visit [facility] [address] [facility] [place] [phone] Abelino Montenegro MD 230 [facility] [place], [place] [phone] documented as of this encounter Visit Diagnoses Not on filedocumented in this encounter Additional Health Concerns Assessment Noted Time PHQ-9 Depression Total Score: 0 09/02/19 23 11:43 AM EDT documented as of this encounter Care Teams Dialysis Chief Equipment Technician Relationship Specialty Start Date End Date Abelino Montenegro MD [facility] [place], [place] [phone] PCP - General Internal Medicine 03/10/21 documented as of this encounter
--- OUTSIDE RECORDS SUMMARY | 2024-07-12 14:25 | XMS_ITS | Encounter Summary ---
Author Organization [employer] Address 75 [facility] 7t [place] [address] Care Team Providers Care Neurosurgery Research Director Name Role Phone Abelino Montenegro MD Primary Care Provide r Reason for Visit * Reason Comments Med Refill Encounter Details Date Type Department Care Team (Late st Contact Info) Description 12/25/2022 Refill [facility] MEDICINE [address] [place] [address] [phone] Abelino Montenegro MD [address] [place] [address] [phone] Social History Tobacco Use Types Packs/Day Years [...] Description 07/13/2024 1:45 PM EST Office Visit [facility]INE [address] [place] [address] [phone] Toby Sage MD 230 [place], [place] [phone] 09/11/2024 11:15 AM EDT Office Visit [facility] 230 [place] [address] Abelino Montenegro MD 230 [place] [address] documented as of this encounter Visit Diagnoses Not on filedocumented in this encounter Additional Health Concerns Assessment Noted Time PHQ-9 Depression Total Score: 0 09/02/19 23 11:43 AM EDT documented as of this encounter Care Teams Neurosurgery Research Director Relationship Specialty Start Date End Date Abelino Montenegro MD 230 [place] [address] PCP - General Internal Medicine 03/10/21 documented as of this encounter
--- OUTSIDE RECORDS SUMMARY | 2024-07-12 14:25 | XMS_ITS | Encounter Summary ---
Author Organization [employer] Address 75 [facility] 7t [place] [address] Care Team Providers Care Display Card Writer Name Role Phone Abelino Montenegro MD Primary Care Provide r Reason for Visit * Reason Comments Med Refill Encounter Details Date Type Department Care Team ([facility] st Contact Info) Description 11/01/2023 Refill [facility] 230 [place] [address] Abelino Montenegro MD 230 [place] [address] Mild intermittent asthma without complication; Type 2 diabetes mellitus without complication, without long-term current use of insulin ([facility]); Benign hypertension Social History Tobacco Use Types [...] 1:45 PM EST Office Visit [facility] MED[facility]INE [address] [place] [address] Toby Sage MD [address] [place] [address] 09/11/2024 11:15 AM EDT Office Visit [facility] [address] [place] [address] [phone] Abelino Montenegro MD [address] [place] [address] 510[address] documented as of this encounter Visit Diagnoses Diagnosis Mild intermittent asthma without complication Type 2 diabetes mellitus without complication, without long-term current use of insulin ([facility]) Benign hypertension Essential hypertension, benign documented in this encounter Additional Health Concerns Assessment Noted Time PHQ-9 Depression Total Score: 0 09/02/19 23 11:43 AM EDT documented as of this encounter Care Teams Display Card Writer Relationship Specialty Start Date End Date Abelino Montenegro MD [address] [place] [phone] PCP - General Internal Medicine 03/10/21 documented as of this encounter
--- OUTSIDE RECORDS SUMMARY | 2024-07-12 14:25 | XMS_ITS | Encounter Summary ---
Author Organization [employer] Address 75 [facility] 7t [place] [address] Care Team Providers Care Campus Recruiter Name Role Phone Abelino Montenegro MD Primary Care Provide r Reason for Visit * Reason Comments Med Refill Encounter Details Date Type Department Care Team ([facility] st Contact Info) Description 10/25/2023 Refill [facility] MEDICINE 230 [place] [address] Abelino Montenegro MD 230 [place] [address] Type 2 diabetes mellitus without complication, without long-term current use of insulin ([facility]); Mild intermittent asthma without complication; Benign hypertension [...] 07/13/2024 1:45 PM EST Office Visit [facility] MEDICINE [address] [place] [phone] Toby Sage MD [address] [place] [phone] 09/11/2024 11:15 AM EDT Office Visit [facility] MED[facility]INE [address] [place] [address] 67[address] Abelino Montenegro MD [address] [place] [phone] documented as of this encounter Visit Diagnoses Diagnosis Type 2 diabetes mellitus without complication, without long-term current use of insulin ([facility]) Mild intermittent asthma without complication Benign hypertension Essential hypertension, benign documented in this encounter Additional Health Concerns Assessment Noted Time PHQ-9 Depression Total Score: 0 09/02/19 23 11:43 AM EDT documented as of this encounter Care Teams Campus Recruiter Relationship Specialty Start Date End Date Abelino Montenegro MD [address] [place] [phone] PCP - General Internal Medicine 03/10/21 documented as of this encounter
== END 2024-07-12 11:45 | disposition home or self-care (01) ==
LOC: HO.LAB 11:44
PROVIDERS: Psychiatry & Neurology Neurology; PCP Internal Medicine; Visit Provider Internal Medicine
DX: G31.84 Mild cognitive impairment of uncertain or unknown etiology (principal)
CPT/HCPCS: 36415; 82607

== ENCOUNTER 2024-07-30 10:26 | Outpatient (REF) | payer OTHER, SELFPAY | END 2024-07-30 10:27 | disposition home or self-care (01) | LOC: HO.MAMMO 10:26 | PROVIDERS: PCP Internal Medicine; Visit Provider Internal Medicine | DX: Z12.31 Encounter for screening mammogram for malignant neoplasm of breast (principal) | CPT/HCPCS: 77063; 77067 ==

== ENCOUNTER → 2024-07-30 11:00 | Outpatient (BNV) | payer OTHER, SELFPAY | PROVIDERS: PCP Internal Medicine; Visit Provider Internal Medicine | DX: Z12.31 Encounter for screening mammogram for malignant neoplasm of breast (principal) | CPT/HCPCS: 77063; 77067 ==

== ENCOUNTER 2024-08-24 13:29 | Outpatient (AMB) | payer OTHER, SELFPAY ==
--- NOTE | 2024-08-24 13:40 | A.OFFVIS_ITS ---
Vital Signs 08/24/24 13:42 Height 5 ft 2 in Weight 165 lb 5.547 oz BMI 30.2 BP 106/66 Blood Pressure Location Lt brachial Position Sitting Pulse 77 Intake Visit Reasons: f/u IBS Intake Note: Mercedes presents in the office as a follow up for IBS. CC: She states that she is not having any concerns at this time and her stomach has been okay. Technical Support Intern Required: Yes Technical Support Intern Name: [id number] Allergies No Known Allergies [No Known Allergies*] Allergy (Verified 08/24/24 13:44) HPI HPI f/u IBS: Details: Assessment & Plan (1) Irritable bowel syndrome with diarrhea: Code(s): K58.0 - Irritable bowel syndrome with diarrhea Category: Medical (2) GERD (gastroesophageal reflux disease): Code(s): K21.9 - Gastro-esophageal reflux disease without esophagitis Category: Medical (3) Abdominal bloating: Code(s): R14.0 - Abdominal distension (gaseous) Category: Medical (4) Encounter for colorectal cancer screening using Cologuard test: Comment: Her Cologuard test was negative on 07/2023 repeat in 3 years Code(s): Z12.11 - Encounter for screening for malignant neoplasm of colon; Z12.12 - Encounter for screening for malignant neoplasm of rectum Category: Medical Plan Montenegrin # sister translates per patient request. She says that her stooling is well controlled on the Viberzi. Despite taking pantoprazole in the morning she is having burning in the gastric area that tends to be worse with eating and occurring mostly later in the day. I think she is having a fade of the affect him of so the pantoprazole which is common so will try giving her a dose of famotidine before supper to see if we can improve this. Return office visit in 8 weeks Medications: New famotidine (Pepcid) 40 mg PO .qacsupper 30 tabs 6RF K21.9 - Gastro-esophageal reflux disease without esophagitis Changed From methylcellulose (laxative) 1,000 mg (2 x 500 mg) PO DAILY 30 days 60 tabs 6RF K58.0 - Irritable bowel syndrome with diarrhea To methylcellulose (laxative) (Citrucel) 1,000 mg (2 x 500 mg) PO DAILY 60 tabs 6RF 30 days K58.0 - Irritable bowel syndrome with diarrhea Refilled simethicone 180 mg PO TID 90 caps 6RF R14.0 - Abdominal distension (gaseous) pantoprazole 40 mg PO DAILY 90 tabs 2RF 90 days R10.13 - Epigastric pain TODAY'S VISIT Montenegrin #[id number] Her Cologuard test was negative She continues on her Viberzi, pantoprazole, simethicone, and fiber along with famotidine at night. She says she is doing very well. She denies any new GI or general medical problems. ROV 6 mos. PFSH Medical History Polyarticular osteoarthritis Bilateral primary osteoarthritis of knee Bilateral hand pain Epigastric pain Urinary incontinence Asthma Abnormal CT scan Colon cancer screening Pre-op examination Urinary urgency Urinary frequency Cervicalgia Fall Polyarthralgia Mild recurrent major depression Lab test positive for detection of COVID-19 virus Diabetes mellitus Abdominal bloating COVID-19 vaccine series completed Lumbar spondylosis Cervical spondylitis Muscle weakness Dyslipidemia Elevated CPK Osteopenia Diabetic 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 associated with type 2 diabetes mellitus intermission coordinator (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 Diabetes type 2, controlled Urge urinary incontinence Moderate asthma Vertigo Polyarthralgia Depression with anxiety Essential hypertension Surgical History History of surgery on extremity Hx of colonoscopy History of esophagogastroduodenoscopy (EGD) S/P SHERRY-BSO (total abdominal hysterectomy and bilateral salpingo-oophorectomy) History of tubal ligation Family History Father Hypertension Mother Cancer Sister Breast cancer Social History Household Members: Significant Other Housing: House Alcohol intake: never Patient Tobacco Use Status: Never used Tobacco e-Cigarette/Vaping Use: Never Used Second Hand Smoke Exposure: No service: No Current occupational status: disabled Review of Systems Const Denies fatigue, Denies fever(s), Denies night sweats, Denies poor appetite and Denies weight loss ENT Reports Normal hearing present, Denies dental pain, Denies dysphagia, Denies hearing loss, Denies mouth pain, Denies odynophagia, Denies throat swelling, Denies tongue swelling and Reports other (Dentition adequate) Card Reports no additional complaints Resp Reports no additional complaints GI Details: Denies abdominal pain, Denies melena, Reports bloating, Denies hematochezia, Denies constipation, Denies GI cramping, Denies dysphagia, Denies excessive flatus, Denies early satiety, Reports heartburn, Reports diarrhea, Denies nausea, Denies odynophagia, Denies vomiting and Denies hematemesis Skin/Breast Denies pruritus, Denies lesions, Denies rash and Denies jaundice Neuro Reports Normal hearing present and Denies Abnormal speech present Endo Denies fatigue Aller/Immun Denies throat swelling and Denies tongue swelling Physical Exam Vital Signs: Last Vital Signs Pulse 77 08/24/24 13:42 BP 106/66 08/24/24 13:42 BMI result Body Mass Index 30.2 Const General: cooperative, no acute distress, well developed and well groomed Nutritional Appearance: well nourished and obese Orientation/consciousness: oriented to person, oriented to place and oriented to time Limitations: language barrier HEENT Head: Yes normocephalic and Yes atraumatic Eyes General: appearance normal, both eyes and all related structures Pupils: Equal, round and reactive pupils present Neck Neck: Yes normal visual inspection and Yes no lymphadenopathy Thyroid: Thyroid normal Resp Effort & Inspection: normal respiratory effort and able to speak in complete sentences Auscultation: clear to auscultation bilaterally Cardio Rate: regular rate Rhythm: regular rhythm Heart sounds: Normal, physiologic split S2 sound present Peripheral pulses: radial pulses present and posterior tibial pulses present GI Inspection: No distended, No Abdominal panniculus present and Yes obesity Palpation (GI): Soft to palpation, nontender, no guarding, not rigid and No hepatosplenomegaly present Percussion: Yes normal to percussion Auscultation: normal bowel sounds Rectal Exam - Female: deferred Skin General skin exam: no rashes or lesions noted, turgor normal, skin not dry, no jaundice, No spider nevi and no striae Rashes: no rashes Nails: normal Neuro General: oriented to person, oriented to place and oriented to time Cranial nerves: Yes Equal, round and reactive pupils present and Yes Normal hearing present Speech: No Abnormal speech present Extrem General: Yes normal to inspection, No clubbing, No cyanosis and No edema Psych Appearance: grossly normal and well kempt Mental Status: mental status grossly normal Speech and movement: Normal speech and movement present Affect: normal affect Attitude: cooperative Thought process: Normal thought process present and not confabulating Thought content: Normal thought content present Insight: Fair insight present (Psych) Judgement: Fair judgement present (Psych) Assessment & Plan Assessment & Plan (1) Encounter for colorectal cancer screening using Cologuard test: Comment: Her Cologuard test was negative on 07/2023 repeat in 3 years Code(s): Z12.11 - Encounter for screening for malignant neoplasm of colon; Z12.12 - Encounter for screening for malignant neoplasm of rectum Category: Medical (2) GERD (gastroesophageal reflux disease): Code(s): K21.9 - Gastro-esophageal reflux disease without esophagitis Category: Medical (3) Irritable bowel syndrome with diarrhea: Code(s): K58.0 - Irritable bowel syndrome with diarrhea Category: Medical (4) Abdominal bloating: Code(s): R14.0 - Abdominal distension (gaseous) Category: Medical Plan Montenegrin #[id number] Her Cologuard test was negative She continues on her Viberzi, pantoprazole, simethicone, and fiber along with famotidine at night. She says she is doing very well. She denies any new GI or general medical problems. ROV 6 mos. Medications: Refilled pantoprazole 40 mg PO DAILY 90 tabs 2RF 90 days R10.13 - Epigastric pain simethicone 180 mg PO TID 90 caps 6RF R14.0 - Abdominal distension (gaseous) famotidine 40 mg PO QPM 90 tabs 2RF K21.9 - Gastro-esophageal reflux disease without esophagitis eluxadoline (Viberzi) must administer with a meal/food, PLEASE LABEL INSTRUCTIONS IN [place] !! 75 mg PO BID 60 tabs 5RF K58.0 - Irritable bowel syndrome with diarrhea methylcellulose (laxative) (Citrucel) 1,000 mg (2 x 500 mg) PO DAILY 60 tabs 6RF 30 days K58.0 - Irritable bowel syndrome with diarrhea Coding Level of Care Code Est Pt Level 3 (34811) Diagnoses Encounter for colorectal cancer screening using Cologuard test Z12.11; Z12.12 GERD (gastroesophageal reflux disease) K21.9 Irritable bowel syndrome with diarrhea K58.0 Abdominal bloating R14.0
[2024-08-24 13:42] VITALS: BP 106/66; PULSE 77; BMI 30.2
--- OUTSIDE RECORDS SUMMARY | 2024-08-24 13:55 | XMS_ITS | Encounter Summary ---
Author Organization [employer] Address 75 [facility] 7t [place] [address] Care Team Providers Care Supervisor Policy Change Clerks Name Role Phone Abelino Montenegro MD Primary Care Provide r Reason for Visit * Reason Comments Med Refill Encounter Details Date Type Department Care Team ([facility] st Contact Info) Description 04/26/2023 Refill [facility] MEDICINE [address] [place] [address] Abelino Montenegro MD 230 [place] [address] Social History Tobacco Use Types Packs/Day Years [...] Care Team (Late st Contact Info) Description 09/11/2024 11:15 AM EDT Office Visit [facility] MEDICINE [address] [place] [address] 12841 Abelino Montenegro MD [address] [place] [address] documented as of this encounter Visit Diagnoses Not on filedocumented in this encounter Additional Health Concerns Assessment Noted Time PHQ-9 Depression Total Score: 0 09/02/19 23 11:43 AM EDT documented as of this encounter Care Teams Supervisor Policy Change Clerks Relationship Specialty Start Date End Date Abelino Montenegro MD [address] [place] [address] PCP - General Internal Medicine 03/10/21 documented as of this encounter
--- OUTSIDE RECORDS SUMMARY | 2024-08-24 13:55 | XMS_ITS | Encounter Summary ---
Author Organization [employer] Address 75 [facility] 7t [place] [address] Care Team Providers Care [employer]cil Core Transformer Assembler Name Role Phone Abelino Montenegro MD Primary Care Provide r Reason for Visit * Reason Comments Med Refill Encounter Details Date Type Department Care Team ([facility] st Contact Info) Description 06/14/2023 Refill [facility] MEDICINE [address] [place] [address] Abelino Montenegro MD [address] [place] [address] Mild intermittent asthma without complication Social History [...] Description 09/11/2024 11:15 AM EDT Office Visit [facility] MEDICINE [address] [place] [address] Abelino Montenegro MD [address] [place] [address] documented as of this encounter Visit Diagnoses Diagnosis Mild intermittent asthma without complication documented in this encounter Additional Health Concerns Assessment Noted Time PHQ-9 Depression Total Score: 0 09/02/19 23 11:43 AM EDT documented as of this encounter Care Teams Hypercil Core Transformer Assembler Relationship Specialty Start Date End Date Abelino Montenegro MD [address] [place] [phone] PCP - General Internal Medicine 03/10/21 documented as of this encounter
--- OUTSIDE RECORDS SUMMARY | 2024-08-24 13:55 | XMS_ITS | Encounter Summary ---
Author Organization [employer] Address 75 [facility] 7t [place] [address] Care Team Providers Care Intel Recruiter Name Role Phone Abelino Montenegro MD Primary Care Provide r Reason for Visit * Reason Comments Med Refill Encounter Details Date Type Department Care Team ([facility] st Contact Info) Description 03/21/2023 Refill [facility] [address] [place] [address] Debbie Jaime MD [address] [place] [address] Gastroesophageal reflux disease without esophagitis Social History [...] Description 09/11/2024 11:15 AM EDT Office Visit [facility]INE [address] [place], [place] [phone] Abelino Montenegro MD [address] [place] [address] documented as of this encounter Visit Diagnoses Diagnosis Gastroesophageal reflux disease without esophagitis Esophageal reflux documented in this encounter Additional Health Concerns Assessment Noted Time PHQ-9 Depression Total Score: 0 09/02/19 23 11:43 AM EDT documented as of this encounter Care Teams Intel Recruiter Relationship Specialty Start Date End Date Abelino Montenegro MD [address] [place] [address] PCP - General Internal Medicine 03/10/21 documented as of this encounter
--- OUTSIDE RECORDS SUMMARY | 2024-08-24 13:55 | XMS_ITS | Encounter Summary ---
Author Organization [employer] Address 75 [facility] 7t [place] [address] Care Team Providers Care Fuel Quality Tech Name Role Phone Abelino Montenegro MD Primary Care Provide r Reason for Visit * Reason Comments Med Refill Encounter Details Date Type Department Care Team ([facility] st Contact Info) Description 04/25/2023 Refill [facility] MED[facility]INE 230 [place] [address] Abelino Montenegro MD [address] [place] [address] Social History Tobacco Use Types Packs/Day Years [...] Description 09/11/2024 11:15 AM EDT Office Visit [facility] MEDICINE [address] [place] [phone] Abelino Montenegro MD [address] [place] [address] documented as of this encounter Visit Diagnoses Not on filedocumented in this encounter Additional Health Concerns Assessment Noted Time PHQ-9 Depression Total Score: 0 09/02/19 23 11:43 AM EDT documented as of this encounter Care Teams Fuel Quality Tech Relationship Specialty Start Date End Date Abelino Montenegro MD [address] [place] [address] PCP - General Internal Medicine 03/10/21 documented as of this encounter
--- OUTSIDE RECORDS SUMMARY | 2024-08-24 13:55 | XMS_ITS | Encounter Summary ---
Author Organization [employer] Address 75 [facility] 7t [place] [address] Care Team Providers Care Applications Trainer Name Role Phone Abelino Montenegro MD Primary Care Provide r Reason for Visit * Reason Comments Med Refill Encounter Details Date Type Department Care Team (Late Contact Info) Description 01/20/2023 Refill [facility] [address] [place] [address] [phone] Abelino Montenegro MD [address] [place] [address] [phone] Social History Tobacco Use Types Packs/Day Years [...] Department Care Team (Late Contact Info) Description 09/11/2024 11:15 AM EDT Office Visit [facility] [address] [place] [address] Abelino Montenegro MD 230 [place], [place] [phone] documented as of this encounter Visit Diagnoses Not on filedocumented in this encounter Additional Health Concerns Assessment Noted Time PHQ-9 Depression Total Score: 0 09/02/19 23 11:43 AM EDT documented as of this encounter Care Teams Applications Trainer Relationship Specialty Start Date End Date Abelino Montenegro MD 230 [place] [address] PCP - General Internal Medicine 03/10/21 documented as of this encounter
--- OUTSIDE RECORDS SUMMARY | 2024-08-24 13:55 | XMS_ITS | Encounter Summary ---
Author Organization [employer] Address 75 [facility] 7t [place] [address] Care Team Providers Care Schedule Maker Name Role Phone Abelino Montenegro MD Primary Care Provide r Reason for Visit * Reason Comments Med Refill Encounter Details Date Type Department Care Team (Late Contact Info) Description 02/03/2023 Refill [facility] MEDICINE [address] [place] [address] [phone] Abelino Montenegro MD [address] [place] [address] [phone] Social History Tobacco Use Types Packs/Day Years [...] Description 09/11/2024 11:15 AM EDT Office Visit [facility]INE [address] [place] [phone] Abelino Montenegro MD 230 [place], [place] [phone] documented as of this encounter Visit Diagnoses Not on filedocumented in this encounter Additional Health Concerns Assessment Noted Time PHQ-9 Depression Total Score: 0 09/02/19 23 11:43 AM EDT documented as of this encounter Care Teams Schedule Maker Relationship Specialty Start Date End Date Abelino Montenegro MD 230 [place] [address] PCP - General Internal Medicine 03/10/21 documented as of this encounter
--- OUTSIDE RECORDS SUMMARY | 2024-08-24 13:55 | XMS_ITS | Encounter Summary ---
Author Organization [employer] Address 75 [facility] 7t [place] [address] Care Team Providers Care Souvenir Assembler Name Role Phone Abelino Montenegro MD Primary Care Provide r Reason for Visit * Reason Onset Date Comments Med Refill 02/18/2023 Encounter Details Date Type Department Care Team ([facility] st Contact Info) Description 02/18/2023 Telephone [facility] MEDICINE 230 [place] [address] Abelino Montenegro MD 230 [place] [address] Med Refill Social History Tobacco Use Types [...] 50 mg tablet to be sent to [facility]/pharm[facility] #[id number] -[place], [place] - [address] [place] [address] documented in this encounter Plan of Treatment Upcoming Encounters Date Type Department Care Team (Late st Contact Info) Description 09/11/2024 11:15 AM EDT Office Visit [facility] MED[facility]INE 230 [place] [address] Abelino Montenegro MD 230 [place] [address] documented as of this encounter Visit Diagnoses Not on filedocumented in this encounter Additional Health Concerns Assessment Noted Time PHQ-9 Depression Total Score: 0 09/02/19 23 11:43 AM EDT documented as of this encounter Care Teams Souvenir Assembler Relationship Specialty Start Date End Date Abelino Montenegro MD 230 [place] [address] PCP - General Internal Medicine 03/10/21 documented as of this encounter
--- OUTSIDE RECORDS SUMMARY | 2024-08-24 13:55 | XMS_ITS | Encounter Summary ---
Author Organization [employer] Address 75 [facility] 7t [place] [address] Care Team Providers Care Leather Production Machine Operator Name Role Phone Abelino Montenegro MD Primary Care Provide r Reason for Visit * Reason Comments Med Refill Encounter Details Date Type Department Care Team ([facility] st Contact Info) Description 03/21/2023 Refill [facility] MEDICINE 230 [place] [address] Abelino Montenegro MD [address] [place] [address] Benign hypertension Social History Tobacco Use Types [...] Description 09/11/2024 11:15 AM EDT Office Visit [facility] MEDICINE [address] [place] [address] Abelino Montenegro MD 230 [place] [address] documented as of this encounter Visit Diagnoses Diagnosis Benign hypertension Essential hypertension, benign documented in this encounter Additional Health Concerns Assessment Noted Time PHQ-9 Depression Total Score: 0 09/02/19 23 11:43 AM EDT documented as of this encounter Care Teams Leather Production Machine Operator Relationship Specialty Start Date End Date Abelino Montenegro MD [address] [place] [address] PCP - General Internal Medicine 03/10/21 documented as of this encounter
--- OUTSIDE RECORDS SUMMARY | 2024-08-24 13:55 | XMS_ITS | Encounter Summary ---
Author Organization [employer] Address 75 [facility] 7t [place] [address] Care Team Providers Care Services Manager Name Role Phone Abelino Montenegro MD Primary Care Provide r Reason for Visit * Reason Comments Med Refill Encounter Details Date Type Department Care Team ([facility] st Contact Info) Description 05/23/2023 Refill [facility] [address] [place] [address] Abelino Montenegro MD [address] [place] [address] Seasonal allergies; Essential hypertension Social History Tobacco [...] Description 09/11/2024 11:15 AM EDT Office Visit [facility] [address] [place] [address] Abelino Montenegro MD [address] [place] [address] documented as of this encounter Visit Diagnoses Diagnosis Seasonal allergies Allergic rhinitis, cause unspecified Essential hypertension Unspecified essential hypertension documented in this encounter Additional Health Concerns Assessment Noted Time PHQ-9 Depression Total Score: 0 09/02/19 23 11:43 AM EDT documented as of this encounter Care Teams Services Manager Relationship Specialty Start Date End Date Abelino Montenegro MD [address] [place] [address] PCP - General Internal Medicine 03/10/21 documented as of this encounter
--- OUTSIDE RECORDS SUMMARY | 2024-08-24 13:55 | XMS_ITS | Encounter Summary ---
Author Organization [email or web address] Address 75 [facility] 7t [place] [address] Care Team Providers Care Social Psychologist Name Role Phone Abelino Montenegro MD Primary Care Provide r Reason for Visit * Reason Onset Date Comments Med Refill 03/11/2023 Encounter Details Date Type Department Care Team ([facility] st Contact Info) Description 03/11/2023 Telephone [facility] MEDICINE [address] [place] [address] Abelino Montenegro MD [address] [place] [address] Med Refill Social History Tobacco Use Types [...] was sent on 02/17/23 to [facility] for [facility]. * Telephone Encounter - Chauncey Whitfield - 03/11/2023 11:19 AM EDT Tc concetta Woodson at [facility] requesting a new script for pregabalin (Lyrica) 100 MG capsulee. documented in this encounter Plan of Treatment Upcoming Encounters Date Type Department Care Team (Late st Contact Info) Description 09/11/2024 11:15 AM EDT Office Visit [facility] MEDICINE [address] [place] [address] Abelino Montenegro MD [address] [place] [address] documented as of this encounter Visit Diagnoses Not on filedocumented in this encounter Additional Health Concerns Assessment Noted Time PHQ-9 Depression Total Score: 0 09/02/19 11:43 AM EDT documented as of this encounter Care Teams Social Psychologist Relationship Specialty Start Date End Date Abelino Montenegro MD 230 [place] [address] PCP - General Internal Medicine 03/10/21 documented as of this encounter
--- OUTSIDE RECORDS SUMMARY | 2024-08-24 13:55 | XMS_ITS | Encounter Summary ---
Author Organization [employer] Address 75 [facility] 7t [place] [address] Care Team Providers Care Engineer Geophysical Laboratory Name Role Phone Abelino Montenegro MD Primary Care Provide r Encounter Details Date Type Department Care Team (Late st Contact Info) Description 06/14/2022 Orders Only [facility] & PED[facility] [address] [place] [address] Viv Barnard LPN Social History Tobacco Use [...] Description 09/11/2024 11:15 AM EDT Office Visit [facility] 230 [place] [address] Abelino Montenegro MD 230 [place] [address] documented as of this encounter Visit Diagnoses Not on filedocumented in this encounter Care Teams Engineer Geophysical Laboratory Relationship Specialty Start Date End Date Abelino Montenegro MD 230 [place] [address] PCP - General Internal Medicine 03/10/21 documented as of this encounter
--- OUTSIDE RECORDS SUMMARY | 2024-08-24 13:55 | XMS_ITS | Encounter Summary ---
Author Organization [employer] Address [address] [facility] 7t [place] [address] Care Team Providers Care Home Energy Inspector Name Role Phone Abelino Montenegro MD Primary Care Provide r Reason for Visit * Reason Comments Med Refill Encounter Details Date Type Department Care Team ([facility] st Contact Info) Description 04/14/2023 Refill [facility] MEDICINE 230 [place] [address] Abelino Montenegro MD 230 [place] [address] Social History Tobacco Use Types Packs/Day Years [...] Description 09/11/2024 11:15 AM EDT Office Visit [facility] MEDICINE [address] [place] [address] Abelino Montenegro MD [address] [place] [address] documented as of this encounter Visit Diagnoses Not on filedocumented in this encounter Additional Health Concerns Assessment Noted Time PHQ-9 Depression Total Score: 0 09/02/19 23 11:43 AM EDT documented as of this encounter Care Teams Home Energy Inspector Relationship Specialty Start Date End Date Abelino Montenegro MD [address] [place] [address] PCP - General Internal Medicine 03/10/21 documented as of this encounter
--- OUTSIDE RECORDS SUMMARY | 2024-08-24 13:55 | XMS_ITS | Encounter Summary ---
Author Organization [employer] Address [address] [facility] 7t [place] [address] Care Team Providers Care Reactor Fueling Supervisor Name Role Phone Abelino Montenegro MD Primary Care Provide r Reason for Visit * Reason Comments Med Refill Encounter Details Date Type Department Care Team ([facility] st Contact Info) Description 03/20/2023 Refill [facility] MEDICINE 230 [place] [address] Abelino Montenegro MD [address] [place] [address] Acute midline low back pain without sciatica [...] Description 09/11/2024 11:15 AM EDT Office Visit [facility] MEDICINE 230 [place] [address] Abelino Montenegro MD [address] [place] [address] documented as of this encounter Visit Diagnoses Diagnosis Acute midline low back pain without sciatica documented in this encounter Additional Health Concerns Assessment Noted Time PHQ-9 Depression Total Score: 0 09/02/19 23 11:43 AM EDT documented as of this encounter Care Teams Reactor Fueling Supervisor Relationship Specialty Start Date End Date Abelino Montenegro MD [address] [place] [address] PCP - General Internal Medicine 03/10/21 documented as of this encounter
--- OUTSIDE RECORDS SUMMARY | 2024-08-24 13:55 | XMS_ITS | Encounter Summary ---
Author Organization [employer] Address 75 [facility] 7t [place] [address] Care Team Providers Care Outdoor Landscape Architect Name Role Phone Abelino Montenegro MD Primary Care Provide r Reason for Visit * Reason Comments Med Refill Encounter Details Date Type Department Care Team ([facility] st Contact Info) Description 03/28/2023 Refill [facility] MEDICINE 230 [place] [address] Abelino Montenegro MD [address] [place] [address] Social History Tobacco Use Types Packs/Day Years [...] Description 09/11/2024 11:15 AM EDT Office Visit [facility] MEDICINE [address] [place] [address] Abelino Montenegro MD [address] [place] [address] documented as of this encounter Visit Diagnoses Not on filedocumented in this encounter Additional Health Concerns Assessment Noted Time PHQ-9 Depression Total Score: 0 09/02/19 23 11:43 AM EDT documented as of this encounter Care Teams Outdoor Landscape Architect Relationship Specialty Start Date End Date Abelino Montenegro MD [address] [place] [address] PCP - General Internal Medicine 03/10/21 documented as of this encounter
--- OUTSIDE RECORDS SUMMARY | 2024-08-24 13:55 | XMS_ITS | Encounter Summary ---
Author Organization [employer] Address [address] [facility] [address] 7t [place] [address] Care Team Providers Care Broth Setter Name Role Phone Abelino Montenegro MD Primary Care Provide r Reason for Visit * Reason Comments Med Refill Encounter Details Date Type Department Care Team ([facility] st Contact Info) Description 03/29/2023 Refill [facility] MED & PEDS [address] [place], [place] [phone] Abelino Montenegro MD 230 [place] [address] Social History Tobacco Use Types Packs/Day Years [...] Description 09/11/2024 11:15 AM EDT Office Visit [facility] MEDICINE 230 [place] [address] Abelino Montenegro MD [address] [place] [address] documented as of this encounter Visit Diagnoses Not on filedocumented in this encounter Additional Health Concerns Assessment Noted Time PHQ-9 Depression Total Score: 0 09/02/19 23 11:43 AM EDT documented as of this encounter Care Teams Broth Setter Relationship Specialty Start Date End Date Abelino Montenegro MD [address] [place] [address] PCP - General Internal Medicine 03/10/21 documented as of this encounter
--- OUTSIDE RECORDS SUMMARY | 2024-08-24 13:55 | XMS_ITS | Encounter Summary ---
Author Organization [employer] Address 75 [facility] 7t [place] [address] Care Team Providers Care Car Head Liner Installer Name Role Phone Abelino Montenegro MD Primary Care Provide r Reason for Visit * Reason Comments Med Refill Encounter Details Date Type Department Care Team ([facility] st Contact Info) Description 03/04/2023 Refill [facility] MEDICINE 230 [place] [address] Abelino Montenegro MD [address] [place] [address] Social History Tobacco Use Types Packs/Day Years [...] Description 09/11/2024 11:15 AM EDT Office Visit [facility] MEDICINE [address] [place] [address] Abelino Montenegro MD [address] [place] [address] documented as of this encounter Visit Diagnoses Not on filedocumented in this encounter Additional Health Concerns Assessment Noted Time PHQ-9 Depression Total Score: 0 09/02/19 23 11:43 AM EDT documented as of this encounter Care Teams Car Head Liner Installer Relationship Specialty Start Date End Date Abelino Montenegro MD [address] [place] [address] PCP - General Internal Medicine 03/10/21 documented as of this encounter
--- OUTSIDE RECORDS SUMMARY | 2024-08-24 13:55 | XMS_ITS | Encounter Summary ---
Author Organization [employer] Address 75 [facility] 7t [place] [address] Care Team Providers Care School Bus Driver Name Role Phone Abelino Montenergo MD Primary Care Provide r Reason for Visit * Reason Onset Date Comments Med Refill 02/18/2023 Encounter Details Date Type Department Care Team ([facility] st Contact Info) Description 02/18/2023 Refill [facility] [address] [place] [address] Abelino Montenegro MD [address] [place] [address] Type 2 diabetes mellitus without complication, with long-term current use of insulin ([facility]) Social History Tobacco Use Types [...] Office Visit [facility] [address] [place] [address] Abelino Montenegro MD [address] [place] [address] documented as of this encounter Visit Diagnoses Diagnosis Type 2 diabetes mellitus without complication, with long-term current use of insulin ([facility]) documented in this encounter Additional Health Concerns Assessment Noted Time PHQ-9 Depression Total Score: 0 09/02/19 23 11:43 AM EDT documented as of this encounter Care Teams School Bus Driver Relationship Specialty Start Date End Date Abelino Montenegro MD [address] [place] [address] PCP - General Internal Medicine 03/10/21 documented as of this encounter
--- OUTSIDE RECORDS SUMMARY | 2024-08-24 13:55 | XMS_ITS | Encounter Summary ---
Author Organization [employer] Address [address] [facility] 7t [place] [address] Care Team Providers Care Stallion Keeper Name Role Phone Abelino Montenegro MD Primary Care Provide r Reason for Visit * Reason Comments Med Refill Encounter Details Date Type Department Care Team ([facility] st Contact Info) Description 04/05/2023 Refill [facility] MEDICINE [address] [place] [address] Abelino Montenegro MD [address] [place] [address] Social History Tobacco Use Types Packs/Day Years [...] Description 09/11/2024 11:15 AM EDT Office Visit [facility] MEDICINE [address] [place] [address] Abelino Montenegro MD [address] [place] [address] documented as of this encounter Visit Diagnoses Not on filedocumented in this encounter Additional Health Concerns Assessment Noted Time PHQ-9 Depression Total Score: 0 09/02/19 23 11:43 AM EDT documented as of this encounter Care Teams Stallion Keeper Relationship Specialty Start Date End Date Abelino Montenegro MD [address] [place] [address] PCP - General Internal Medicine 03/10/21 documented as of this encounter
--- OUTSIDE RECORDS SUMMARY | 2024-08-24 13:55 | XMS_ITS | Encounter Summary ---
Author Organization [employer] Address [address] [facility] 7t [place] [address] Care Team Providers Care Energy Control Officer Name Role Phone Abelino Montenegro MD Primary Care Provide r Reason for Visit * Reason Comments Med Refill Encounter Details Date Type Department Care Team ([facility] st Contact Info) Description 06/10/2023 Refill [facility] 230 [place] [address] Abelino Montenegro MD [address] [place] [address] Social History Tobacco Use Types Packs/Day Years [...] Description 09/11/2024 11:15 AM EDT Office Visit [facility] [address] [place] [address] Abelino Montenegro MD [address] [place] [address] documented as of this encounter Visit Diagnoses Not on filedocumented in this encounter Additional Health Concerns Assessment Noted Time PHQ-9 Depression Total Score: 0 09/02/19 23 11:43 AM EDT documented as of this encounter Care Teams Energy Control Officer Relationship Specialty Start Date End Date Abelino Montenegro MD [address] [place] [address] PCP - General Internal Medicine 03/10/21 documented as of this encounter
--- OUTSIDE RECORDS SUMMARY | 2024-08-24 13:55 | XMS_ITS | Encounter Summary ---
Author Organization [employer] Address 75 [facility] 7t [place] [address] Care Team Providers Care Car Dropper Name Role Phone Abelino Montenegro MD Primary Care Provide r Reason for Visit * Reason Comments Med Refill Encounter Details Date Type Department Care Team (Late Contact Info) Description 01/28/2023 Refill [facility] MED[facility] [address] [place] [address] [phone] Abelino Montenegro MD [address] [place] [address] [phone] Social History Tobacco Use Types Packs/Day Years [...] Office Visit [facility] MEDICINE [address] [place] [address] Abelino Montenegro MD 230 [place], [place] [phone] documented as of this encounter Visit Diagnoses Not on filedocumented in this encounter Additional Health Concerns Assessment Noted Time PHQ-9 Depression Total Score: 0 09/02/19 23 11:43 AM EDT documented as of this encounter Care Teams Car Dropper Relationship Specialty Start Date End Date Abelino Montenegro MD [address] [place] [address] PCP - General Internal Medicine 03/10/21 documented as of this encounter
--- OUTSIDE RECORDS SUMMARY | 2024-08-24 13:55 | XMS_ITS | Clinical Summary ---
Author Organization [employer] Address [address] [facility] 7t [place] [address] Care Team Providers Care Biomedical Engineering Supervisor Name Role Phone Abelino Montenegro MD [...] complication, without long-term current use of insulin ([facility]),Mild intermittent asthma without complication USE TO TEST BLOOD SUGAR THREE TO FOUR TIMES A DAY (BULK) 100 strip 11 024 Active pregabalin (Lyrica) 100 MG capsule TAKE ONE CAPSULE BY MOUTH TWICE A DAY 60 capsule 024 Active dextran 70-hypromellose PF (artificial tears) 0.1-0.3 % ophthalmic solutionIndicat ions:Dry eye Administer 1 drop into both eyes if needed in the morning, at noon, and at bedtime for dry eyes. 1 each 3 025 Active Diclofenac Sodium 1 % gelIndications: [...] complication INHALE 1 VIAL VIA NEBULIZER FRANCINE HUDSON AL FREDIS 90 mL 3 025 Active [...] VIA ORAL TODOS LOS BOYD EN LA MANANA 90 tablet 1 025 Active calcium carbonate 1500 (600 Ca) MG tabletIndicatio ns:Type 2 diabetes mellitus without complication, without long-term current use of insulin (CMS/HCC) TOME 1 TABLETA POR VIA ORAL DOS VECES AL FREDIS 180 tablet 1 025 Active diphenoxylate-a tropine (Lomotil) 2.5-0.025 MG tabletIndicatio ns:Diarrhea, unspecified type TAKE 1 TABLET BY MOUTH IF NEEDED IN THE MORNING AND AT BEDTIME FOR DIARRHEA. 10 tablet 025 Active calcium carbonate 1500 (600 Ca) MG tabletIndicatio ns:Type 2 diabetes mellitus without complication, without long-term current use of insulin (CMS/HCC) TAKE ONE TABLET BY MOUTH TWICE A DAY 60 tablet 5 024 2024 Discontinued diphenoxylate-a tropine (Lomotil) 2.5-0.025 MG tabletIndicatio ns:Diarrhea, unspecified type TAKE 1 TABLET BY MOUTH IF NEEDED IN THE MORNING AND AT BEDTIME FOR DIARRHEA. 10 tablet 025 2024 Discontinued(R eorder (will not trigger notification to Pharmacy)) Active Problems Problem Noted Date Diagnosed Date [...] and benadryl PRN px today -refer to online marketing analyst to clarify possible triggers -will hold for [...] X-rays lumbar spine and hips that showed: Ykww-zg-fzibaxse degenerative changes in the bilateral hips. 2. Mild multilevel lumbar spondylosis. [facility]. They recommended PT has a follow up [...] X-rays lumbar spine and hips that showed: Ebwr-tn-emvowhvc degenerative changes in the bilateral hips. 2. Mild multilevel lumbar spondylosis. Patient was referred to [facility]. They recommended PT has a follow up [...] X-rays lumbar spine and hips that showed: Swhb-yu-qvkytsrp degenerative changes in the bilateral hips. 2. [...] X-rays lumbar spine and hips that showed: Xxxv-od-tigsnkjh degenerative changes in the bilateral hips. 2. [...] Follow up with me in 1 month [facility] care 10/05/2022 Assessment & Plan (02/14/2024 1:38 [...] Encounters Date Type Department Care Team Description 08/23/2024 Telephone [facility] [address] [place] [address] Abelino Montenegro MD Durable Medical Equipment 08/12/2024 Refill [facility] [address] [place] [address] Elli Lopez MD Diarrhea, unspecified type 08/11/2024 Refill [facility] [address] [place] [address] Abelino Montenegro MD Type 2 diabetes mellitus without complication, without long-term current use of insulin ([facility]); Diarrhea, unspecified type 07/30/2024 Orders Only [facility] [address] [place] [address] Abelino Montenegro MD 07/13/2024 1:45 PM EST Office Visit [facility] [address] [place] [address] Toby Sage MD Xerosis of skin (Primary Dx); Multiple acquired skin tags 07/13/2024 Travel 07/02/2024 Refill [facility] [address] [place], [place] [phone] Abelino Montenegro MD Dermatitis; Seasonal allergies 06/12/2024 Refill [facility] [address] [place], [place] [phone] Debbie Tee MD Urticarial rash 06/12/2024 Refill [facility] [address] [place] [address] Abelino Montenegro MD Acute midline low back pain without sciatica; Mild intermittent asthma without complication; Seasonal allergies; Essential hypertension; Urticarial rash 06/08/2024 Refill [facility] [address] [place], [place] [phone] Abelino Montenergo MD Diarrhea, unspecified type from Last 3 Months Immunizations Name Administration Dates Next Due Influenza High-dose Quadriva lent Preservative Free 02/26/2022,03/10/2021 Influenza Quadrivalent Adjuvanted 01/13/2023, Influenza injectable quadriv alent IIV4 with preservative 03/24/2016 Influenza, High Dose Seasona l, Preservative Free 02/14/2024,01/09/2019,01/14/2017 Influenza, IIV3, injectable 05/30/2015 Influenza, Split (incl. anibal fied surface antigen) 01/31/2013,01/06/2012 Influenza, seasonal, injecta ble, preservative free 05/14/2014 Influenza, trivalent, adjuvanted 04/05/2018 MMR 11/28/1997 [facility] Covid-19 Vaccine 12+ 08/22/2020,07/26/19,06/27/2020 Pfizer Covid-19 Vaccine [...] Sign Reading Time Taken Comments Blood Pressure 123/70 07/13/2024 1:39 PM EST Pulse 84 07/13/2024 1:39 PM EST Temperature 37.1 ??C (98.7 ??F) 07/13/2024 1:39 PM ES T Respiratory Rate 18 07/13/2024 1:39 PM EST Oxygen Saturation 95% 05/15/2024 11:46 AM EST Inhaled Oxygen Concentration - - Weight 75.9 kg (167 lb 6.4 oz) 07/13/2024 1:39 P M EST Height 157.5 cm (5' 2 ) 07/13/2024 1:39 PM EST Body Mass Index 30.62 07/13/2024 1:39 PM EST Plan of Treatment Upcoming Encounters Date Type Department Care Team (Late st Contact Info) Description 09/11/2024 11:15 AM EDT Office Visit [facility] [address] [place] [address] Abelino Montenegro MD [address] [place] [address] Health Maintenance Due Date Last Done Comments [...] 03/11/2022 03/11/2021 Lipid Panel 04/13/2023 04/13/2022, 03/11/2021 Depression Screening 11/02/2024 11/03/2023, 11/03/19 24 SDOH Screening 11/02/2024 11/03/2023 Diabetes: Hemoglobin A1C 11/12/2024 025, 02/14/2024, 11/03/2023, Additional history exists Alcohol/Substance Use Screening 05/15/2025 05/15/2024 Tobacco Screening 05/15/2025 05/15/2024 Mammogram 07/30/2025 07/30/2024, 07/07, 07/15/2022, Additional history exists Colorectal Cancer Screening 07/26/2026 FIT DNA/Cologuard 07/26/2026 [...] Procedure Name Priority Date/Time Associated Diagnosis Comments BI MAMMOGRAM SCREENING TOMOSYNTHESIS BILATERAL Routine 07/30/2024 10:30 AM EDT POCT GLYCATED HEMOGLOBIN, TOTAL Routine 05/15/2024 12:00 PM EST Type 2 diabetes mellitus without complication, without long-term current use of insulin (CMS/HCC) HEPATITIS C AB W/REFL TO HCV RNA, QN, PCR Routine 02/21/2024 8:25 AM EDT POST (nonalcoholic steatohepatitis) LIPID PANEL, STANDARD Routine 04/13/2022 8:46 AM EST HM COLONOSCOPY Routine 09/03/2021 8:02 AM EDT ALBUMIN, RANDOM URINE W/CREATININE Routine 03/11/2021 8:33 AM EDT from Last 3 Months or Most Recently Relevant to Health Maintenance Results * BI Mammogram Screening Tomosynthesis Bilateral (07/30/2024 10:30 AM EDT) Anatomical Region Laterality Modality Breast Bilateral Mammography 07/30/2024 10:3 0 AM EDT Narrative 08/05/2024 8:20 PM EDT ? [facility] ? [address] ?[place], [place] [address] ?[phone] ? Mammography Report ? Signed ? Patient: Og,Mercedes ?MR#: [id number] ?? [id number] ? : 1950 ?Acct:[id number] ? Age/Sex: 74 / F ?ADM Date: 07/30/24 ? Loc: HO.MAMMO ? Attending Dr: Abelino Maddox MD ? Ordering Physician: Abelino Maddox MD ?Resu ?? lts: 1Negative ? Date of Service: 07/30/24 ?Follow Up: 1 Year From Orig ?? inal Mammogram ? Procedure(s): MM tomosynthesis screening BI ?? Accession Number(s): [id number] ? cc: Abelino Maddox MD ? EXAMINATION: ?? MM SCREENING DIGITAL BREAST TOMOSYNTHESIS, BILATERAL ? CLINICAL INFORMATION: ? Screening. Asymptomatic. ? COMPARISON: ?? Mammography: Comparison is made with available priors ? TECHNIQUE: ?? Digital breast mammography with tomosynthesis is performed in both the ?? craniocaudal and mediolateral oblique views along with computer-aided ?? detection (CAD). ? FINDINGS: ?? There are scattered areas of fibroglandular density (ACR BI-RADS breast ?? composition Category b). ? There are no significant masses, abnormal calcifications, or other ?? abnormalities. ? MM/MM tomosynthesis screening BI ?? IMPRESSION: ?? No mammographic evidence of malignancy. ? ASSESSMENT: ? BI-RADS BI-RADS 1 - Negative ? RECOMMENDATION: ?? Routine annual mammography screening. ? 1 year F/U ? This examination should not preclude the clinical evaluation of a ?? suspicious palpable abnormality. ? This patient's information was entered into a reminder system with a ?? target due date for their next mammogram. ? Electronically signed by: ??Deanna Alfredo DO ??08/05/2024 08:17 PM EDT ? Dictated By: ?Deanna Alfredo DO ? Signed By: ?<Electronically signed by Deanna Alfredo, DO in OV> ? 08/05/242016 ? DD/ 1030 ? TD/TT: 07/30/24 1042 ? [employer]: ? Procedure Note Loulou, Anila - 08/05/2024 [facility] [address] [place] [address] [place] [address] Mammography Report Signed Patient: Ronnell Foley#: [id number] : 1950cct:[id number] Age/Sex: 74 / FADM Date: 07/30/24 Loc: JOSEO Attending Dr: Abelino Maddox MD Ordering Physician: Abelino Maddox MDResu lts: 1Negative Date of Service: 03/24/25Follow Up: 1 Year From Orig ina Mammogram Procedure(s): MM tomosynthesis screening BI Accession Number(s): [id number] cc: Abelino Maddox MD EXAMINATION: MM SCREENING DIGITAL BREAST TOMOSYNTHESIS, BILATERAL CLINICAL INFORMATION: Screening. Asymptomatic. COMPARISON: Mammography: Comparison is made with available priors TECHNIQUE: Digital breast mammography with tomosynthesis is performed in both the craniocaudal and mediolateral oblique views along with computer-aided detection (CAD). FINDINGS: There are scattered areas of fibroglandular density (ACR BI-RADS breast composition Category b). There are no significant masses, abnormal calcifications, or other abnormalities. MM/MM tomosynthesis screening BI IMPRESSION: No mammographic evidence of malignancy. ASSESSMENT: BI-RADS BI-RADS 1 - Negative RECOMMENDATION: Routine annual mammography screening. 1 year F/U This examination should not preclude the clinical evaluation of a suspicious palpable abnormality. This patient's information was entered into a reminder system with a target due date for their next mammogram. Electronically signed by: Deanna Alfredo DO 08/05/2024 08:17 PM EDT Dictated By: Deanna Alfredo DO Signed By: <Electronically signed by Deanna Alfredo DO in OV> 08/05/242016 DD/ 1030 TD/TT: 07/30/24 1042 [employer]: Abelino Whitfield MD IMG BI PROCEDURES Kareem jayashree Result - Final * (ABNORMAL) POCT HGB A1C (05/15/2024 12:00 [...] AM EDT) Hepatitis C Antibody Nonreactive Nonreactive [facility] Comment:Antibodies to HCV no t detected; does not exclude early acuteHCV infection. Blood Venous blood specimen / Unknown 02/21/2024 8:25 AM EDT 02/21/2024 11:11 AM EDT us Abelino Whitfield MD LAB BLOOD ORDERABLES Final Result [facility] [address] [place] [address] [phone] * Lipid Panel, Standard (04/13/2022 8:46 AM EST) Cholesterol, Total 138 <200 mg/dL [facility] HDL Cholesterol 56 > OR = 50 mg/dL [facility] Triglycerides 72 <150 mg/dL [facility] LDL Cholesterol 67 mg/dL (calc) [facility] Comment: Reference range: <100 Desirable range <100 mg/dL for primary prevention; ?? <70 mg/dL for patients with CHD or diabetic patients with > or = 2 CHD risk factors. LDL-C is now calculated using the Escobar-Nia calculation, which is a validated novel method providing better accuracy than the Friedewald equation in the estimation of LDL-C. Escobar SS et al. CADY. 2013;310(19): 5142-7321 (http://education.[employer].TidePool/faq/JJQ486) Chol/HDLC Ratio 2.5 <5.0 (calc) [facility] Non-HDL Cholesterol 82 <130 mg/dL (calc) [facility] Comment: For patients with diabetes plus 1 major ASCVD risk factor, treating to a non-HDL-C goal of <100 mg/dL (LDL-C of <70 mg/dL) is considered a therapeutic option. 04/13/2022 8:46 AM EST 04/13/2022 8:47 AM EST Narrative [facility] - 04/13/2022 11:31 PM EST FASTING:YES FASTING: YES Abelino Whitfield MD LAB BLOOD ORDERABLES Final Result [facility] [address], [place] [address] [facility] [address], [place] [address] * Hm Colonoscopy (09/03/2021 8:02 AM EDT) [...] Whitfield MD LAB URINE ORDERABLES Final Result [facility] [address] from Last 3 Months or Most Recently Relevant to Health Maintenance Insurance Care Teams Biomedical Engineering Supervisor Relationship Specialty Start Date End Date Abelino Montenegro MD [address] [place] [address] PCP - General Internal Medicine 03/10/21
--- OUTSIDE RECORDS SUMMARY | 2024-08-24 13:56 | XMS_ITS | Encounter Summary ---
Author Organization [employer] Address [address] [facility] [address] 7t [place] [address] Care Team Providers Care [employer]r [employer] Name Role Phone Abelino Montenegro MD Primary Care Provide r Reason for Visit * Reason Comments Med Refill Encounter Details Date Type Department Care Team ([facility] st Contact Info) Description 09/17/2023 Refill [facility] [address] [place], [place] [phone] Abelino Montenegro MD [address] [place], [place] [phone] Social History Tobacco Use Types Packs/Day Years [...] Description 09/11/2024 11:15 AM EDT Office Visit [facility] [address] [place] [address] Abelino Montenegro MD [address] [place] [address] documented as of this encounter Visit Diagnoses Not on filedocumented in this encounter Additional Health Concerns Assessment Noted Time PHQ-9 Depression Total Score: 0 09/02/19 23 11:43 AM EDT documented as of this encounter Care Teams [employer]r [employer] Relationship Specialty Start Date End Date Abelino Montenegro MD [address] [place] [address] PCP - General Internal Medicine 03/10/21 documented as of this encounter
--- OUTSIDE RECORDS SUMMARY | 2024-08-24 13:56 | XMS_ITS | Encounter Summary ---
Author Organization [employer] Address [address] [facility] 7t [place] [address] Care Team Providers Care Lead Quality Control Technician Name Role Phone Abelino Montenegro MD Primary Care Provide r Reason for Visit * Reason Comments Med Refill Encounter Details Date Type Department Care Team ([facility] st Contact Info) Description 06/17/2023 Refill [facility] [address] [place] [address] Abelino Montenegro MD [address] [place] [address] Social History Tobacco Use Types Packs/Day Years [...] Office Visit [facility] [address] [place] [address] Abelino Montenegro MD [address] [place] [address] documented as of this encounter Visit Diagnoses Not on filedocumented in this encounter Additional Health Concerns Assessment Noted Time PHQ-9 Depression Total Score: 0 09/02/19 23 11:43 AM EDT documented as of this encounter Care Teams Lead Quality Control Technician Relationship Specialty Start Date End Date Abelino Montenegro MD [address] [place] [address] PCP - General Internal Medicine 03/10/21 documented as of this encounter
--- OUTSIDE RECORDS SUMMARY | 2024-08-24 13:56 | XMS_ITS | Encounter Summary ---
Author Organization [employer] Address [address] [facility] [address] [place] [address] Care Team Providers Care Guest Services Officer Name Role Phone Abelino Montenegro MD Primary Care Provide r Reason for Visit * Reason Comments Med Refill Encounter Details Date Type Department Care Team ([facility] st Contact Info) Description 01/18/2024 Refill [facility] [address] [place], [place] [phone] Abelino Montenegro MD [address] [place] [address] Social History Tobacco Use Types Packs/Day Years [...] Description 09/11/2024 11:15 AM EDT Office Visit [facility] [address] [place] [address] Abelino Montenegro MD [address] [place] [address] documented as of this encounter Visit Diagnoses Not on filedocumented in this encounter Additional Health Concerns Assessment Noted Time PHQ-9 Depression Total Score: 4 11/03/19 24 1:09 PM EDT documented as of this encounter Care Teams Guest Services Officer Relationship Specialty Start Date End Date Abelino Montenegro MD [address] [place] [address] PCP - General Internal Medicine 03/10/21 documented as of this encounter
--- OUTSIDE RECORDS SUMMARY | 2024-08-24 13:56 | XMS_ITS | Encounter Summary ---
Author Organization [employer] Address [address] [facility] 7t [place] [address] Care Team Providers Care Body Builder Apprentice Name Role Phone Abelino Montenegro MD Primary Care Provide r Reason for Visit * Reason Comments Med Refill Encounter Details Date Type Department Care Team ([facility] st Contact Info) Description 10/25/2023 Refill [facility] [address] [place] [address] Debbie Jaime MD [address] [place] [address] Gastroesophageal reflux disease without esophagitis Social History [...] Description 09/11/2024 11:15 AM EDT Office Visit [facility] [address] [place], [place] [phone] Abelino Montenegro MD [address] [place] [address] documented as of this encounter Visit Diagnoses Diagnosis Gastroesophageal reflux disease without esophagitis Esophageal reflux documented in this encounter Additional Health Concerns Assessment Noted Time PHQ-9 Depression Total Score: 0 09/02/19 23 11:43 AM EDT documented as of this encounter Care Teams Body Builder Apprentice Relationship Specialty Start Date End Date Abelino Montenegro MD [address] [place] [address] PCP - General Internal Medicine 03/10/21 documented as of this encounter
--- OUTSIDE RECORDS SUMMARY | 2024-08-24 13:56 | XMS_ITS | Encounter Summary ---
Author Organization [employer] Address [address] [facility] 7t [place] [address] Care Team Providers Care Stock Preparation Supervisor Name Role Phone Abelino Montenegro MD Primary Care Provide r Reason for Visit * Reason Comments Med Refill Encounter Details Date Type Department Care Team ([facility] st Contact Info) Description 11/11/2023 Refill [facility] [address] [place] [address] Abelino Montenegro MD [address] [place] [address] Type 2 diabetes mellitus without complication, without long-term current use of insulin ([facility]); Mild intermittent asthma without complication; Benign [...] Description 09/11/2024 11:15 AM EDT Office Visit [facility] [address] [place] [address] Abelino Montenegro MD [address] [place] [address] documented as of this encounter Visit Diagnoses Diagnosis Type 2 diabetes mellitus without complication, without long-term current use of insulin ([facility]) Mild intermittent asthma without complication Benign hypertension Essential hypertension, benign documented in this encounter Additional Health Concerns Assessment Noted Time PHQ-9 Depression Total Score: 4 11/03/19 24 1:09 PM EDT documented as of this encounter Care Teams Stock Preparation Supervisor Relationship Specialty Start Date End Date Abelino Montenegro MD [address] [place] [address] PCP - General Internal Medicine 03/10/21 documented as of this encounter
--- OUTSIDE RECORDS SUMMARY | 2024-08-24 13:56 | XMS_ITS | Encounter Summary ---
Author Organization [employer] Address [address] [facility] [address]t [place] [address] Care Team Providers Care Direct Mail Clerk Name Role Phone Abelino Montenegro MD Primary Care Provide r Encounter Details Date Type Department Care Team ([facility] Contact Info) Description 06/30/2022 Orders Only [facility] [address] [place], [place] [phone] Viv Barnard LPN Social History Tobacco Use [...] Description 09/11/2024 11:15 AM EDT Office Visit [facility] [address] [place], [place] [phone] Abelino Montenegro MD [address] [place], [place] [phone] documented as of this encounter Visit Diagnoses Not on filedocumented in this encounter Additional Health Concerns Assessment Noted Time PHQ-9 Depression Total Score: 0 06/29/19 23 1:07 PM EST documented as of this encounter Care Teams Direct Mail Clerk Relationship Specialty Start Date End Date Abelino Montenegro MD [address] [place] [address] PCP - General Internal Medicine 03/10/21 documented as of this encounter
--- OUTSIDE RECORDS SUMMARY | 2024-08-24 13:56 | XMS_ITS | Encounter Summary ---
Author Organization [employer] Address [address] [facility] [address] [place] [address] Care Team Providers Care Dtp Operator Name Role Phone Abelino Montenegro MD Primary Care Provide r Reason for Visit * Reason Comments Med Refill Encounter Details Date Type Department Care Team ([facility] st Contact Info) Description 09/14/[address] [facility]EDS [address] [place], [place] [phone] Abelino Montenegro MD [address] [place], [place] [phone] Social History Tobacco Use Types Packs/Day Years [...] Description 09/11/2024 11:15 AM EDT Office Visit [facility] [address] [place] [address] Abelino Montenegro MD [address] [place] [phone] documented as of this encounter Visit Diagnoses Not on filedocumented in this encounter Additional Health Concerns Assessment Noted Time PHQ-9 Depression Total Score: 0 09/02/19 23 11:43 AM EDT documented as of this encounter Care Teams Dtp Operator Relationship Specialty Start Date End Date Abelino Montenegro MD [address] [place] [address] PCP - General Internal Medicine 03/10/21 documented as of this encounter
--- OUTSIDE RECORDS SUMMARY | 2024-08-24 13:56 | XMS_ITS | Encounter Summary ---
Author Organization [employer] Address [address] [facility] 7t [place] [address] Care Team Providers Care Circuit Walker Name Role Phone Abelino Montenegro MD Primary Care Provide r Encounter Details Date Type Department Care Team ([facility] Contact Info) Description 09/16/2022 Abstract [facility] [address] [place] [address] Abelino Montenegro MD [address] [place] [phone] Social History Tobacco Use Types Packs/Day Years [...] Upcoming Encounters Date Type Department Care Team ([facility] Contact Info) Description 09/11/2024 11:15 AM EDT Office Visit [facility] [address] [place] [address] Abelino Montenegro MD [address] [place], [place] [phone] documented as of this encounter Visit Diagnoses Not on filedocumented in this encounter Additional Health Concerns Assessment Noted Time PHQ-9 Depression Total Score: 0 09/02/19 23 11:43 AM EDT documented as of this encounter Care Teams Circuit Walker Relationship Specialty Start Date End Date Abelino Montenegro MD [address] [place] [address] PCP - General Internal Medicine 03/10/21 documented as of this encounter
--- OUTSIDE RECORDS SUMMARY | 2024-08-24 13:56 | XMS_ITS | Encounter Summary ---
Author Organization [employer] Address 75 [facility] 7t [place] [address] Care Team Providers Care Regional Flatbed Truck Driver Name Role Phone Abelino Montenegro MD Primary Care Provide r Reason for Visit * Reason Comments Med Refill Encounter Details Date Type Department Care Team ([facility] st Contact Info) Description 11/03/2023 Refill [facility] 230 [place] [address] Debbie Jaime MD 230 [place] [address] Gastroesophageal reflux disease without esophagitis Social History [...] 09/11/2024 11:15 AM EDT Office Visit [facility] 230 [place] [address] Abelino Montenegro MD 230 [place] [address] documented as of this encounter Visit Diagnoses Diagnosis Gastroesophageal reflux disease without esophagitis Esophageal reflux documented in this encounter Additional Health Concerns Assessment Noted Time PHQ-9 Depression Total Score: 4 11/03/19 24 1:09 PM EDT documented as of this encounter Care Teams Regional Flatbed Truck Driver Relationship Specialty Start Date End Date Abelino Montenegro MD [address] [place] [address] PCP - General Internal Medicine 03/10/21 documented as of this encounter
--- OUTSIDE RECORDS SUMMARY | 2024-08-24 13:56 | XMS_ITS | Encounter Summary ---
Author Organization [employer] Address 75 [facility] 7t [place] [address] Care Team Providers Care Photo Engraver Name Role Phone Abelino Montenegro MD Primary Care Provide r Reason for Visit * Reason Comments Med Refill Encounter Details Date Type Department Care Team (Late st Contact Info) Description 12/18/[address] [facility] 230 [place], [place] [phone] [facility] 230 [place], [place] [phone] Essential hypertension Social History Tobacco Use Types [...] 09/11/2024 11:15 AM EDT Office Visit [facility] 230 [place], [place] [phone] Abelino Montenegro MD 230 [place], [place] [phone] documented as of this encounter Visit Diagnoses Diagnosis Essential hypertension Unspecified essential hypertension documented in this encounter Additional Health Concerns Assessment Noted Time PHQ-9 Depression Total Score: 0 09/02/19 23 11:43 AM EDT documented as of this encounter Care Teams Photo Engraver Relationship Specialty Start Date End Date Abelino Montenegro MD 230 [place] [address] PCP - General Internal Medicine 03/10/21 documented as of this encounter
--- OUTSIDE RECORDS SUMMARY | 2024-08-24 13:56 | XMS_ITS | Encounter Summary ---
Author Organization [employer] Address 75 [facility] 7t [place] [address] Care Team Providers Care Numerical Control Tool Programmer Name Role Phone Abelino Montenegro MD Primary Care Provide r Reason for Visit * Reason Comments Med Refill Encounter Details Date Type Department Care Team ([facility] Contact Info) Description 09/14/2022 Refill [facility] 230 [place] [address] Kimberlyn Phillips MD [address] [place] [address] Gastroesophageal reflux disease without esophagitis Social History [...] Description 09/11/2024 11:15 AM EDT Office Visit [facility] 230 [place] [address] Abelino Montenegro MD 230 [place] [address] documented as of this encounter Visit Diagnoses Diagnosis Gastroesophageal reflux disease without esophagitis Esophageal reflux documented in this encounter Additional Health Concerns Assessment Noted Time PHQ-9 Depression Total Score: 0 09/02/19 23 11:43 AM EDT documented as of this encounter Care Teams Numerical Control Tool Programmer Relationship Specialty Start Date End Date Abelino Montenegro MD 230 [place] [address] PCP - General Internal Medicine 03/10/21 documented as of this encounter
--- OUTSIDE RECORDS SUMMARY | 2024-08-24 13:56 | XMS_ITS | Encounter Summary ---
Author Organization [employer] Address [address] [facility] [address] 7t [place] [address] Care Team Providers Care Math Coach Name Role Phone Abelino Montenegro MD Primary Care Provide r Reason for Visit * Reason Comments Med Refill Encounter Details Date Type Department Care Team ([facility] st Contact Info) Description 01/25/2024 Refill [facility] & PEDS [address] [place], [place] [phone] Abelino Montenegro MD 230 [place] [address] Social History Tobacco Use Types Packs/Day Years [...] 11:15 AM EDT Office Visit [facility] MEDICINE 230 [place] [address] Abelino Montenegro MD [address] [place] [address] documented as of this encounter Visit Diagnoses Not on filedocumented in this encounter Additional Health Concerns Assessment Noted Time PHQ-9 Depression Total Score: 4 11/03/19 24 1:09 PM EDT documented as of this encounter Care Teams Math Coach Relationship Specialty Start Date End Date Abelino Montenegro MD 230 [place] [address] PCP - General Internal Medicine 03/10/21 documented as of this encounter
--- OUTSIDE RECORDS SUMMARY | 2024-08-24 13:56 | XMS_ITS | Encounter Summary ---
Author Organization [employer] Address [address] [facility] [address] 7t [place] [address] Care Team Providers Care Aircraft Motor Mechanic Name Role Phone Abelino Montenegro MD Primary Care Provide r Reason for Visit * Reason Comments Med Refill Encounter Details Date Type Department Care Team ([facility] st Contact Info) Description 12/15/2023 Refill [facility] CH[facility] MED & PEDS [address] [place], [place] [phone] Abelino Montenegro MD 230 [place] [address] Type 2 diabetes mellitus without complication, without long-term current use of insulin ([facility]) Social [...] Visit [facility] 230 [place] [address] Abelino Montenegro MD [address] [place] [address] documented as of this encounter Visit Diagnoses Diagnosis Type 2 diabetes mellitus without complication, without long-term current use of insulin ([facility]) documented in this encounter Additional Health Concerns Assessment Noted Time PHQ-9 Depression Total Score: 4 11/03/19 24 1:09 PM EDT documented as of this encounter Care Teams Aircraft Motor Mechanic Relationship Specialty Start Date End Date Abelino Montenegro MD [address] [place] [address] PCP - General Internal Medicine 03/10/21 documented as of this encounter
--- OUTSIDE RECORDS SUMMARY | 2024-08-24 13:56 | XMS_ITS | Encounter Summary ---
Author Organization [employer] Address [address] [facility] [address] 7t [place] [address] Care Team Providers Care Maintainer Central Office Name Role Phone Abelino Montenegro MD Primary Care Provide r Reason for Visit * Reason Comments Med Refill Encounter Details Date Type Department Care Team ([facility] st Contact Info) Description 09/08/2023 Refill [facility] CHC MED & PEDS [address] [place], [place] [phone] Abelino Montenegro MD 230 [place], [place] [phone] Social History Tobacco Use Types Packs/Day Years [...] Office Visit [facility] MEDIC[facility] 230 [place] [address] Abelino Montenegro MD [address] [place] [address] documented as of this encounter Visit Diagnoses Not on filedocumented in this encounter Additional Health Concerns Assessment Noted Time PHQ-9 Depression Total Score: 0 09/02/19 23 11:43 AM EDT documented as of this encounter Care Teams Maintainer Central Office Relationship Specialty Start Date End Date Abelino Montenegro MD [address] [place] [address] PCP - General Internal Medicine 03/10/21 documented as of this encounter
--- OUTSIDE RECORDS SUMMARY | 2024-08-24 13:56 | XMS_ITS | Encounter Summary ---
Author Organization [employer] Address 75 [facility] 7t [place] [address] Care Team Providers Care Corporate Sales Representative Name Role Phone Abelino Montenegro MD Primary Care Provide r Reason for Visit * Reason Comments Med Refill Encounter Details Date Type Department Care Team ([facility] st Contact Info) Description 10/25/2023 Refill [facility] MED[facility] 230 [place] [address] Abelino Montenegro MD 230 [place] [address] Type 2 diabetes mellitus without complication, without long-term current use of insulin ([facility] Mild intermittent asthma without complication; Benign [...] Office Visit [facility] MED[facility] 230 [place] [address] Abelino Montenegro MD 230 [place] [address] documented as of this encounter Visit Diagnoses Diagnosis Type 2 diabetes mellitus without complication, without long-term current use of insulin ([facility]) Mild intermittent asthma without complication Benign hypertension Essential hypertension, benign documented in this encounter Additional Health Concerns Assessment Noted Time PHQ-9 Depression Total Score: 0 09/02/19 23 11:43 AM EDT documented as of this encounter Care Teams Corporate Sales Representative Relationship Specialty Start Date End Date Abelino Montenegro MD [address] [place] [address] PCP - General Internal Medicine 03/10/21 documented as of this encounter
--- OUTSIDE RECORDS SUMMARY | 2024-08-24 13:56 | XMS_ITS | Encounter Summary ---
Author Organization [employer] Address 75 [facility] 7t [place] [address] Care Team Providers Care Independent Trader Name Role Phone Abelino Montenegro MD Primary Care Provide r Reason for Visit * Reason Comments Med Refill Encounter Details Date Type Department Care Team ([facility] st Contact Info) Description 07/26/2023 Refill [facility] 230 [place] [address] Abelino Montenegro MD 230 [place] [address] Social History Tobacco Use Types Packs/Day Years [...] Description 09/11/2024 11:15 AM EDT Office Visit [facility] MEDICINE [address] [place] [address] Abelino Montenegro MD [address] [place] [address] documented as of this encounter Visit Diagnoses Not on filedocumented in this encounter Additional Health Concerns Assessment Noted Time PHQ-9 Depression Total Score: 0 09/02/19 23 11:43 AM EDT documented as of this encounter Care Teams Independent Trader Relationship Specialty Start Date End Date Abelino Montenegro MD [address] [place] [address] PCP - General Internal Medicine 03/10/21 documented as of this encounter
--- OUTSIDE RECORDS SUMMARY | 2024-08-24 13:56 | XMS_ITS | Encounter Summary ---
Author Organization [employer] Address 75 [facility] 7t [place] [address] Care Team Providers Care Forestry Foreman Name Role Phone Abelino Montenegro MD Primary Care Provide r Reason for Visit * Reason Comments Med Refill Encounter Details Date Type Department Care Team ([facility] st Contact Info) Description 11/18/2023 Refill [facility] 230 [place] [address] Abelino Montenegro MD [address] [place] [address] Benign hypertension; Type 2 diabetes mellitus without complication, without long-term current use of insulin ([facility]); Mild intermittent asthma without complication [...] Office Visit [facility] 230 [place] [address] Abelino Montenegro MD [address] [place] [address] documented as of this encounter Visit Diagnoses Diagnosis Benign hypertension Essential hypertension, benign Type 2 diabetes mellitus without complication, without long-term current use of insulin ([facility]) Mild intermittent asthma without complication documented in this encounter Additional Health Concerns Assessment Noted Time PHQ-9 Depression Total Score: 4 11/03/19 24 1:09 PM EDT documented as of this encounter Care Teams Forestry Foreman Relationship Specialty Start Date End Date Abelino Montenegro MD [address] [place] [address] PCP - General Internal Medicine 03/10/21 documented as of this encounter
--- OUTSIDE RECORDS SUMMARY | 2024-08-24 13:56 | XMS_ITS | Encounter Summary ---
Author Organization [employer] Address 75 [facility] 7t [place] [address] Care Team Providers Care Sheet Metal Supervisor Name Role Phone Abelino Montenegro MD Primary Care Provide r Reason for Visit * Reason Comments Med Refill Encounter Details Date Type Department Care Team ([facility] st Contact Info) Description 11/01/2023 Refill [facility] 230 [place] [address] Abelino Montenegro MD 230 [place] [address] Mild intermittent asthma without complication; Type 2 diabetes mellitus without complication, without long-term current use of insulin ([facility]); Benign hypertension Social History Tobacco Use [...] Description 09/11/2024 11:15 AM EDT Office Visit [facility] 230 [place] [address] Abelino Montenegro MD 230 [place] [address] documented as of this encounter Visit Diagnoses Diagnosis Mild intermittent asthma without complication Type 2 diabetes mellitus without complication, without long-term current use of insulin ([facility]) Benign hypertension Essential hypertension, benign documented in this encounter Additional Health Concerns Assessment Noted Time PHQ-9 Depression Total Score: 0 09/02/19 23 11:43 AM EDT documented as of this encounter Care Teams Sheet Metal Supervisor Relationship Specialty Start Date End Date Abelino Montenegro MD 230 [place] [address] PCP - General Internal Medicine 03/10/21 documented as of this encounter
--- OUTSIDE RECORDS SUMMARY | 2024-08-24 13:56 | XMS_ITS | Encounter Summary ---
Author Organization [employer] Address [address] [facility] [address] 7t [place] [address] Care Team Providers Care Boat Builder Name Role Phone Abelino Montenegro MD Primary Care Provide r Reason for Visit * Reason Comments Med Refill Encounter Details Date Type Department Care Team ([facility] st Contact Info) Description 12/26/2023 Refill [facility] CHC MED & PEDS [address] [place], [place] [phone] Abelino Montenegro MD 230 [place] [address] Type 2 diabetes mellitus without complication, without long-term current use of insulin ([facility]) Social History Tobacco Use Types [...] 09/11/2024 11:15 AM EDT Office Visit [facility] MED[facility] 230 [place] [address] Abelino Montenegro MD 230 [place] [address] documented as of this encounter Visit Diagnoses Diagnosis Type 2 diabetes mellitus without complication, without long-term current use of insulin ([facility]) documented in this encounter Additional Health Concerns Assessment Noted Time PHQ-9 Depression Total Score: 4 11/03/19 24 1:09 PM EDT documented as of this encounter Care Teams Boat Builder Relationship Specialty Start Date End Date Abelino Montenegro MD [address] [place] [address] PCP - General Internal Medicine 03/10/21 documented as of this encounter
--- OUTSIDE RECORDS SUMMARY | 2024-08-24 13:56 | XMS_ITS | Encounter Summary ---
Author Organization [employer] Address 75 [facility] 7t [place] [address] Care Team Providers Care Steel Post Installer Supervisor Name Role Phone Abelino Montenegro MD Primary Care Provide r Reason for Visit * Reason Comments Med Refill Encounter Details Date Type Department Care Team ([facility] st Contact Info) Description 12/14/2023 Refill [facility] 230 [place], [place] [phone] Abelino Montenegro MD 230 [place] [address] Seasonal allergies; Essential hypertension Social History Tobacco [...] Description 09/11/2024 11:15 AM EDT Office Visit [facility] MED[facility] 230 [place] [address] Abelino Montenegro MD 230 [place] [address] documented as of this encounter Visit Diagnoses Diagnosis Seasonal allergies Allergic rhinitis, cause unspecified Essential hypertension Unspecified essential hypertension documented in this encounter Additional Health Concerns Assessment Noted Time PHQ-9 Depression Total Score: 4 11/03/19 24 1:09 PM EDT documented as of this encounter Care Teams Steel Post Installer Supervisor Relationship Specialty Start Date End Date Abelino Montenegro MD 230 [place] [address] PCP - General Internal Medicine 03/10/21 documented as of this encounter
--- OUTSIDE RECORDS SUMMARY | 2024-08-24 13:56 | XMS_ITS | Encounter Summary ---
Author Organization [employer] Address 75 [facility] 7t [place] [address] Care Team Providers Care Machine Records Units Supervisor Name Role Phone Abelino Montenegro MD Primary Care Provide r Reason for Visit * Reason Comments Med Refill Encounter Details Date Type Department Care Team ([facility] st Contact Info) Description 07/06/2023 Refill [facility] MEDICINE 230 [place] [address] Abelino Montenegro MD 230 [place] [address] Social History Tobacco Use Types Packs/Day Years [...] Description 09/11/2024 11:15 AM EDT Office Visit [facility] MEDICINE [address] [place] [address] Abelino Montenegro MD [address] [place] [address] documented as of this encounter Visit Diagnoses Not on filedocumented in this encounter Additional Health Concerns Assessment Noted Time PHQ-9 Depression Total Score: 0 09/02/19 23 11:43 AM EDT documented as of this encounter Care Teams Machine Records Units Supervisor Relationship Specialty Start Date End Date Abelino Montenegro MD [address] [place] [address] PCP - General Internal Medicine 03/10/21 documented as of this encounter
--- OUTSIDE RECORDS SUMMARY | 2024-08-24 13:56 | XMS_ITS | Encounter Summary ---
Author Organization [employer] Address [address] [facility] [address] [place] [address] Care Team Providers Care Inspector Watch Assembly Name Role Phone Abelino Montenegro MD Primary Care Provide r Encounter Details Date Type Department Care Team ([facility] st Contact Info) Description 09/01/2023 Orders Only [facility] MEDICINE 230 [place], [place] [phone] ProviderHans MD Social History Tobacco Use Types [...] Description 09/11/2024 11:15 AM EDT Office Visit [facility] MEDICINE 230 [place] [address] Abelino Montenegro MD [address] [place] [address] documented as of this encounter Procedures Procedure [...] as of this encounter Care Teams Inspector Watch Assembly Relationship Specialty Start Date End Date Abelino Montenegro MD 230 [place] [address] PCP - General Internal Medicine 03/10/21 documented as of this encounter
--- OUTSIDE RECORDS SUMMARY | 2024-08-24 13:56 | XMS_ITS | Encounter Summary ---
Author Organization [employer] Address 75 [facility] 7t [place] [address] Care Team Providers Care Technical Product Manager Name Role Phone Abelino Montenegro MD Primary Care Provide r Reason for Visit * Reason Comments Med Refill Encounter Details Date Type Department Care Team ([facility] st Contact Info) Description 10/20/2023 Refill [facility] MEDICINE 230 [place] [address] Debbie Jaime MD [address] [place] [address] Gastroesophageal reflux disease without esophagitis Social History [...] Description 09/11/2024 11:15 AM EDT Office Visit [facility] MEDICINE 230 [place], [place] [phone] Abelino Montenegro MD 230 [place] [address] documented as of this encounter Visit Diagnoses Diagnosis Gastroesophageal reflux disease without esophagitis Esophageal reflux documented in this encounter Additional Health Concerns Assessment Noted Time PHQ-9 Depression Total Score: 0 09/02/19 23 11:43 AM EDT documented as of this encounter Care Teams Technical Product Manager Relationship Specialty Start Date End Date Abelino Montenegro MD [address] [place] [address] PCP - General Internal Medicine 03/10/21 documented as of this encounter
--- OUTSIDE RECORDS SUMMARY | 2024-08-24 13:56 | XMS_ITS | Encounter Summary ---
Author Organization [employer] Address 75 [facility] 7t [place] [address] Care Team Providers Care Pocket Setter Lockstitch Name Role Phone Abelino Montenegro MD Primary Care Provide r Reason for Visit * Reason Comments Med Refill Encounter Details Date Type Department Care Team (Late Contact Info) Description 10/08/2022 Refill [facility] MEDICINE [address] [place] [address] Abelino Montenegro MD [address] [place] [address] Social History Tobacco Use Types Packs/Day Years [...] 09/11/2024 11:15 AM EDT Office Visit [facility] MEDICINE 230 [place] [address] Abelino Montenegro MD 230 [place] [address] documented as of this encounter Visit Diagnoses Not on filedocumented in this encounter Additional Health Concerns Assessment Noted Time PHQ-9 Depression Total Score: 0 09/02/19 23 11:43 AM EDT documented as of this encounter Care Teams Pocket Setter Lockstitch Relationship Specialty Start Date End Date Abelino Montenegro MD 230 [place] [address] PCP - General Internal Medicine 03/10/21 documented as of this encounter
--- OUTSIDE RECORDS SUMMARY | 2024-08-24 13:56 | XMS_ITS | Encounter Summary ---
Author Organization [employer] Address 75 [facility] 7t [place] [address] Care Team Providers Care Operating Room Assistant Name Role Phone Abelino Montenegro MD Primary Care Provide r Reason for Visit * Reason Comments Med Refill Encounter Details Date Type Department Care Team (Late st Contact Info) Description 01/01/2023 Refill [facility] MEDICINE [address] [place] [address] [phone] Abelino Montenegro MD 230 [place], [place] [phone] Benign hypertension Social History Tobacco Use Types [...] Office Visit [facility] MEDICINE [address] [place] [address] [phone] Abelino Montenegro MD 230 [place], [place] [phone] documented as of this encounter Visit Diagnoses Diagnosis Benign hypertension Essential hypertension, benign documented in this encounter Additional Health Concerns Assessment Noted Time PHQ-9 Depression Total Score: 0 09/02/19 23 11:43 AM EDT documented as of this encounter Care Teams Operating Room Assistant Relationship Specialty Start Date End Date Abelino Montenegro MD 230 [place] [address] PCP - General Internal Medicine 03/10/21 documented as of this encounter
--- OUTSIDE RECORDS SUMMARY | 2024-08-24 13:56 | XMS_ITS | Encounter Summary ---
Author Organization [employer] Address [address] [facility] [address] [facility] [address] [place] [address] Care Team Providers Care Fitting Supervisor Name Role Phone Abelino Montenegro MD Primary Care Provide r Reason for Visit * Reason Comments Med Refill Encounter Details Date Type Department Care Team ([facility] st Contact Info) Description 01/17/2024 Refill [facility]S [address] [place], [place] [phone] Abelino Montenegro MD [address] [place] [address] Social History Tobacco Use Types Packs/Day Years [...] Description 09/11/2024 11:15 AM EDT Office Visit [facility] MEDICINE [address] [place] [address] Abelino Montenegro MD [address] [place] [address] documented as of this encounter Visit Diagnoses Not on filedocumented in this encounter Additional Health Concerns Assessment Noted Time PHQ-9 Depression Total Score: 4 11/03/19 24 1:09 PM EDT documented as of this encounter Care Teams Fitting Supervisor Relationship Specialty Start Date End Date Abelino Montenegro MD [address] [place] [address] PCP - General Internal Medicine 03/10/21 documented as of this encounter
--- OUTSIDE RECORDS SUMMARY | 2024-08-24 13:56 | XMS_ITS | Encounter Summary ---
Author Organization [employer] Address [address] [place] [address] Care Team Providers Care Cosmetic Assembler Name Role Phone Abelino Montenegro MD Primary Care Provide r Reason for Visit * Reason Comments Med Refill Encounter Details Date Type Department Care Team ([facility] st Contact Info) Description 02/07/2024 Refill [facility]EDS [address] [place], [place] [phone] Abelino Montenegro MD [address] [place] [address] Social History Tobacco Use Types Packs/Day Years [...] Description 09/11/2024 11:15 AM EDT Office Visit [facility] MEDICINE [address] [place] [address] Abelino Montenegro MD [address] [place] [address] documented as of this encounter Visit Diagnoses Not on filedocumented in this encounter Additional Health Concerns Assessment Noted Time PHQ-9 Depression Total Score: 4 11/03/19 24 1:09 PM EDT documented as of this encounter Care Teams Cosmetic Assembler Relationship Specialty Start Date End Date Abelino Montenegro MD [address] [place] [address] PCP - General Internal Medicine 03/10/21 documented as of this encounter
--- OUTSIDE RECORDS SUMMARY | 2024-08-24 13:56 | XMS_ITS | Encounter Summary ---
Author Organization [employer] Address [address] [facility] 7t [place] [address] Care Team Providers Care Sample Sewer Name Role Phone Abelino Montenegro MD Primary Care Provide r Encounter Details Date Type Department Care Team ([facility] Contact Info) Description 09/15/2022 Abstract [facility] MEDICINE [address] [place] [phone] Abelino Montenegro MD [address] [place] [address] [phone] Social History Tobacco Use Types Packs/Day Years [...] Upcoming Encounters Date Type Department Care Team ([facility] Contact Info) Description 09/11/2024 11:15 AM EDT Office Visit [facility] MEDICINE [address] [place] [address] Abelino Montenegro MD [address] [place], [place] [phone] documented as of this encounter Visit Diagnoses Not on filedocumented in this encounter Additional Health Concerns Assessment Noted Time PHQ-9 Depression Total Score: 0 09/02/19 23 11:43 AM EDT documented as of this encounter Care Teams Sample Sewer Relationship Specialty Start Date End Date Abelino Montenegro MD [address] [place] [address] PCP - General Internal Medicine 03/10/21 documented as of this encounter
--- OUTSIDE RECORDS SUMMARY | 2024-08-24 13:56 | XMS_ITS | Encounter Summary ---
Author Organization [employer] Address [address] [facility] 7t [place] [address] Care Team Providers Care Cloud Infrastructure Architect Name Role Phone Abelino Montenegro MD Primary Care Provide r Reason for Visit * Reason Onset Date Comments Durable Medical Equipment 08/23/2024 Encounter Details Date Type Department Care Team ([facility] st Contact Info) Description 08/23/2024 Telephone [facility] MEDICINE [address] [place] [address] Abelino Montenegro MD [address] [place] [address] Durable Medical Equipment Social History Tobacco Use [...] encounter Miscellaneous Notes * Telephone Encounter - Shannan Mendiola - 08/24/2024 11:16 AM EDT General prescription form signed and faxed to [facility] . Confirmation received and sent to scan. If patient calls to check status on above, please advise them to contact [facility] at [phone]. * Telephone Encounter - Shannan Mendiola - 08/23/2024 2:34 PM EDT General prescription form for Diapers/pull ups , Gloves , Reusable underpads/bedpads , Wipes , and skin seal/protectant from [facility] received and placed on PCP desk for signature. documented in this encounter Plan of Treatment Upcoming Encounters Date Type Department Care Team (Late st Contact Info) Description 09/11/2024 11:15 AM EDT Office Visit [facility] MEDICINE [address] [place] [address] Abelino Montenegro MD [address] [place], [place] [phone] documented as of this encounter Visit Diagnoses Not on filedocumented in this encounter Additional Health Concerns Assessment Noted Time PHQ-9 Depression Total Score: 4 11/03/19 24 1:09 PM EDT documented as of this encounter Care Teams Cloud Infrastructure Architect Relationship Specialty Start Date End Date Abelino Montenegro MD [address] [place] [address] PCP - General Internal Medicine 03/10/21 documented as of this encounter
--- OUTSIDE RECORDS SUMMARY | 2024-08-24 13:56 | XMS_ITS | Encounter Summary ---
Author Organization [employer] [facility] Address [address] [facility] 7t [place] [address] Care Team Providers Care Manager Of Revenue Name Role Phone Abelino Montenegro MD Primary Care Provide r Encounter Details Date Type Department Care Team (Late st Contact Info) Description 06/21/2022 Orders Only [facility] MEDICINE [address] [place] [phone] Zully Hallman LPN Social History Tobacco Use [...] Description 09/11/2024 11:15 AM EDT Office Visit [facility] MEDICINE [address] [place] [address] [phone] Abelino Montenegro MD [address] [place] [phone] documented as of this encounter Visit Diagnoses Not on filedocumented in this encounter Care Teams Manager Of Revenue Relationship Specialty Start Date End Date Abelino Montenegro MD [address] [place] [phone] PCP - General Internal Medicine 03/10/21 documented as of this encounter
--- OUTSIDE RECORDS SUMMARY | 2024-08-24 13:56 | XMS_ITS | Clinical Summary ---
Author Organization [employer] Address [address] [place] [id number] Care Team Providers Care Loan Interviewer Mortgage Name Role Phone Unavailable Primary Care Provider [...] screening 1991 Colon cancer screening, Colonoscopy 1996 Pneumococcal Vaccine (50+ years) (1 of 1 - PCV) 2001 Shingles vaccine (Shingrix) (1 of 2 - Shingrix (RZV) 2 Dose Standard Series) 2001 Diabetes screening 01/14/2014 01/14/2011, 0 01/13/2011, 01/13/2011, Additional history exists Osteoporosis screening (bone density) 2016 Covid-19 vaccine series ( - 2023- season) 2024 Influenza vaccine 01/07/2025 RSV Immunization (1 - 1-dose 75+ series) 2026 Cervical [...] EDT) Glucose 233(H) 70 - 100 mg/dL [facility] BUN 7 7 - 20 mg/dL [facility] Creatinine 0.6 0.5 - 1.2 mg/dL [facility] BUN/Creatinine Ratio 11.7 10.0 - 20.0 [facility] Anion Gap 11 7 - 16 [facility] CO2 21.8(L) 22.0 - 30.0 mmol/L [facility] Chloride 104 96 - 106 mmol/L [facility] Sodium 137 135 - 145 mmol/L [facility] Potassium 4.3 3.5 - 5.0 mmol/L [facility] Calcium 9.1 8.8 - 10.2 mg/dL [facility] 01/14/2011 3:30 AM EDT us Shakira [facility] BLOOD ORDERABLES Final Resul t [facility] [address] [place] [phone] from Last 3 Months or Most Recently Relevant to Health Maintenance
--- OUTSIDE RECORDS SUMMARY | 2024-08-24 13:56 | XMS_ITS | Encounter Summary ---
Author Organization [employer] Address [address] [facility] 7t [place] [address] Care Team Providers Care Bioengineer Name Role Phone Abelino Montenegro MD Primary Care Provide r Reason for Visit * Reason Comments Med Refill Encounter Details Date Type Department Care Team ([facility] st Contact Info) Description 01/07/2023 Refill [facility] MEDICINE [address] [place] [address] Abelino Montenegro MD [address] [place] [address] Social History Tobacco Use Types Packs/Day Years [...] below as STAT. Telephone call placed to [facility]. Spoke to RN whostates will give to provider for review DIONY and will follow up with pt. * Telephone Encounter - Marquita Zuleta RN - 01/20/2023 12:03 PM EDT ----- Message from Abelino Whitfield MD sent at 01/19/2023 2:57 PM EDT ----- CT of Abdomen done at [facility] worrisome for gastritis or ulcer disease, mass cannot be excluded, Pleasefax report to [facility] Gastroenterology ( She is their patient ) to make sure they are aware of the CT findings. Let me know documented in this encounter Plan of Treatment Upcoming Encounters Date Type Department Care Team (Late st Contact Info) Description 09/11/2024 11:15 AM EDT Office Visit [facility] MEDICINE [address] [place] [address] Abelino Montenegro MD [address] [place] [address] documented as of this encounter Visit Diagnoses Not on filedocumented in this encounter Additional Health Concerns Assessment Noted Time PHQ-9 Depression Total Score: 0 09/02/19 23 11:43 AM EDT documented as of this encounter Care Teams Bioengineer Relationship Specialty Start Date End Date Abelino Montenegro MD [address] [place] [address] PCP - General Internal Medicine 03/10/21 documented as of this encounter
--- OUTSIDE RECORDS SUMMARY | 2024-08-24 13:56 | XMS_ITS | Encounter Summary ---
Author Organization [facility] Address [address] [facility] [facility] [address] [place] [address] Care Team Providers Care Technical Account Manager Name Role Phone Abelino Montenegro MD Primary Care Provide r Reason for Visit * Reason Comments Med Refill Encounter Details Date Type Department Care Team ([facility] st Contact Info) Description 09/03/2023 Refill [facility] MED & PEDS [address] [place], [place] [phone] Abelino Montenegro MD [address] [place], [place] [phone] Social History Tobacco Use Types Packs/Day Years [...] Description 09/11/2024 11:15 AM EDT Office Visit [facility] MEDICINE [address] [place] [address] Abelino Montenegro MD [address] [place] [address] documented as of this encounter Visit Diagnoses Not on filedocumented in this encounter Additional Health Concerns Assessment Noted Time PHQ-9 Depression Total Score: 0 09/02/19 23 11:43 AM EDT documented as of this encounter Care Teams Technical Account Manager Relationship Specialty Start Date End Date Abelino Montenegro MD [address] [place] [phone] PCP - General Internal Medicine 03/10/21 documented as of this encounter
--- OUTSIDE RECORDS SUMMARY | 2024-08-24 13:56 | XMS_ITS | Encounter Summary ---
Author Organization [employer] Address [address] [facility] 7t [place] [address] Care Team Providers Care Functional Manager Name Role Phone Abelino Montenegro MD Primary Care Provide r Reason for Visit * Reason Comments Med Refill Encounter Details Date Type Department Care Team (Late st Contact Info) Description 12/25/2022 Refill [facility] MEDICINE [address] [place] [phone] Abelino Montenegro MD [address] [place], [place] [phone] Social History Tobacco Use Types Packs/Day Years [...] EDT Office Visit [facility] MEDICINE [address] [place] [phone] Abelino Montenegro MD [address] [place], [place] [phone] documented as of this encounter Visit Diagnoses Not on filedocumented in this encounter Additional Health Concerns Assessment Noted Time PHQ-9 Depression Total Score: 0 09/02/19 23 11:43 AM EDT documented as of this encounter Care Teams Functional Manager Relationship Specialty Start Date End Date Abelino Montenegro MD [address] [place] [address] PCP - General Internal Medicine 03/10/21 documented as of this encounter
== END 2024-08-24 14:29 | disposition home or self-care (01) ==
LOC: HO.HGI 13:30
PROVIDERS: Visit Provider Nurse Practitioner
DX: K58.0 Irritable bowel syndrome with diarrhea (principal); K21.9 Gastro-esophageal reflux disease without esophagitis; R14.0 Abdominal distension (gaseous)
CPT/HCPCS: 99213

== ENCOUNTER → 2024-08-24 13:29 | Outpatient (BNVA) | payer OTHER, SELFPAY | PROVIDERS: Visit Provider Nurse Practitioner | DX: Z12.12 Encounter for screening for malignant neoplasm of rectum (principal); Z12.11 Encounter for screening for malignant neoplasm of colon; K21.9 Gastro-esophageal reflux disease without esophagitis; K58.0 Irritable bowel syndrome with diarrhea; R14.0 Abdominal distension (gaseous) | CPT/HCPCS: 99212 ==

== ENCOUNTER 2024-10-05 11:40 | Outpatient (AMB) | payer OTHER, SELFPAY ==
--- NOTE | 2024-10-05 11:42 | A.OFFVIS_ITS ---
Vital Signs 10/05/24 11:46 Height 5 ft 2 in Weight 168 lb 13.985 oz BMI 30.9 BP 134/70 Blood Pressure Location Lt brachial Position Sitting Respiration 16 Pulse 81 Pulse Source Pulse Oximeter Pulse Oximetry (%) 96 Oxygen Delivery Method Room Air Intake Visit Reasons: OA Intake Note: Patient presents for OA follow up. Quality Assurance Qa Lab Analyst Required: Yes Quality Assurance Qa Lab Analyst Language: Senior Developer Services: Quality Assurance Qa Lab Analyst Offered & Declined Quality Assurance Qa Lab Analyst Name: Ange Cohen Information Interpreted: non-clinical & clinical [facility] Technician: [facility] Technician Present (Ange Cohen) Accompanied by: Daughter Allergies No Known Allergies [No Known Allergies*] Allergy (Verified 10/05/24 11:45) Medication List - Last Reconciled 10/05/24 by Nevin López MD acetaminophen (Tylenol Extra Strength) 500 mg PO QID PRN acetaminophen ER (Mapap Arthritis Pain) 650 mg PO Q12H PRN albuterol sulfate 2.5 mg (3 mL) inhalation TID 30 days albuterol sulfate 90 mcg/actuation (Ventolin HFA) 0 mcg inhalation alcohol swabs (Alcohol Prep Pads) 1 pad topical QID 0 days amlodipine 5 mg PO DAILY aspirin 81 mg PO DAILY blood sugar diagnostic (FreeStyle Lite Strips) test three times a day calcium polycarbophil (Fiber-Lax) 1,250 mg (2 x 625 mg) PO BID codeine-guaifenesin 10-100 mg/5 mL 5 mL PO Q6H PRN dulaglutide 1.5 mg (0.5 mL) subcut QWEEK 30 days eluxadoline (Viberzi) 75 mg PO BID empagliflozin-metformin 12.5-1,000 mg (Synjardy) 1 tab PO BID famotidine 40 mg PO QPM fluticasone propionate 220 mcg/actuation (Flovent HFA) 1 puff PO BID 90 days hydrocortisone 1% 1 appl topical BID PRN hydroxyzine HCl 10 mg PO TID PRN 30 days lancets (FreeStyle Lancets) test three times a day levocetirizine 5 mg PO DAILY lisinopril 40 mg PO DAILY loratadine 10 mg PO DAILY 90 days meclizine 25 mg PO BID PRN methylcellulose (laxative) (Citrucel) 1,000 mg (2 x 500 mg) PO DAILY 30 days montelukast 10 mg PO DAILY oxybutynin chloride ER 10 mg PO DAILY 90 days pantoprazole 40 mg PO DAILY 90 days prednisone 40 mg (2 x 20 mg) PO DAILY 5 days pregabalin (Lyrica) 100 mg PO BID 90 days simethicone 180 mg PO TID trazodone 25 mg PO BEDTIME PRN venlafaxine ER 37.5 mg PO DAILY HPI Comments Details: Patient is a 73-year-old female with GERD, IBS with diarrhea, 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 At that time patient was receiving the final dose of Euflexxa in her Euflexxa series for her bilateral knee osteoarthritis. She tolerated the injection well. Today she reports improvement in her knee pain but complains of thigh pain as well as shoulder pain. She complains of whole-body pain as well Rheumatologic History: Polyarthralgias secondary to osteoarthritis Current Rheumatology Medication(s): Pregabalin 100mg bid Topical diclofenac qid PFSH Medical History Polyarticular osteoarthritis Bilateral primary osteoarthritis of knee Bilateral hand pain Epigastric pain Urinary incontinence Asthma Abnormal CT scan Colon cancer screening Pre-op examination Urinary urgency Urinary frequency Cervicalgia Fall Polyarthralgia Mild recurrent major depression Lab test positive for detection of COVID-19 virus Diabetes mellitus Abdominal bloating COVID-19 vaccine series completed Lumbar spondylosis Cervical spondylitis Muscle weakness Dyslipidemia Elevated CPK Osteopenia Diabetic 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 associated with type 2 diabetes mellitus prison (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 Diabetes type 2, controlled Urge urinary incontinence Moderate asthma Vertigo Polyarthralgia Depression with anxiety Essential hypertension Surgical History History of surgery on extremity Hx of colonoscopy History of esophagogastroduodenoscopy (EGD) S/P SHERRY-BSO (total abdominal hysterectomy and bilateral salpingo-oophorectomy) History of tubal ligation Family History Father Hypertension Mother Cancer Sister Breast cancer Social History Household Members: Significant Other Housing: House Alcohol intake: never Patient Tobacco Use Status: Never used Tobacco e-Cigarette/Vaping Use: Never Used Second Hand Smoke Exposure: No service: No Current occupational status: disabled Review of Systems Const Details: Review of Systems Constitutional: Denies fever, chills, weight loss ENT: Denies vision changes, eye pain or eye redness, dental caries, dry mouth GI: Denies nausea, vomiting, diarrhea, abdominal pain, change in BM Pulm: Denies SOB, PALMER, hemoptysis, wheezing Cards: Denies chest pain, palpitations Skin: Denies Raynaud's, rash, nail changes, photosensitivity, CAN TOP SETTER: Denies headaches, weakness, paresthesias, recurrent falls MSK: as per HPI All other systems reviewed and are unremarkable except noted above Physical Exam Vital Signs: Last Vital Signs Pulse 81 10/05/24 11:46 Resp 16 10/05/24 11:46 BP 134/70 10/05/24 11:46 Pulse Ox 96 10/05/24 11:46 Oxygen Delivery Method Room Air 10/05/24 11:46 BMI result Body Mass Index 30.9 Vital signs reviewed Physical Examination CONSTITUITIONAL Patient alert and cooperative. Well appearing and in no apparent painful distress MSK Hands: ?Able to make a fist. No synovitis noted to the MCPs, PIPs or DIPs. ?No tenderness to palpation of these joints. Herbeden's nodes noted throughout Wrists: ?Full range of motion at the wrists without pain. ?No tenderness to palpation or synovitis noted to the wrists. Elbows: Full range of motion without pain. No tenderness, weakness, swelling, increased warmth or erythema. Shoulders: Full range of active range of motion without pain. No weakness, swelling, increased warmth or erythema. TTP of bilateral AC joints Knees: ?Full range of motion. ?No tenderness, swelling, increased warmth or erythema.?Bilateral crepitations Ankles: Full range of motion. ?No tenderness, swelling, increased warmth or erythema.? Feet: ?Negative squeeze test. ?No tenderness to palpation or swelling of the MTPs. Tender points:?No tenderness to palpation of the bilateral trapezius, supraspinatus, greater trochanters, anterior costochondral junctions, bilateral gluteal areas, bilateral suboccipital muscle insertions SKIN Skin intact without rashes. Office Procedures AMB Joint Injection/Aspiration Joint Injection/Aspiration Details: Procedure was explained to the patient and consent was obtained. ? The area of interest was identified and confirmed with patient. ?This was subsequently cleaned with chlorhexidine x3. ? The area was then anesthetized using ethyl chloride spray. 40 mg Kenalog with 1 cc 1% lidocaine was injected without issue. ?Minimal to no bleeding. ?Patient tolerated procedure. Primary Site: left shoulder Prep: site was prepped using aseptic technique and ethochloride spray was ap plied Injected: 40 mg of, Kenalog, with 1 mL of and 1% plain lidocaine Procedure: The patient tolerated the procedure well Coding 30533 - Acromioclavicular Procedure code (CPT) selection complete AMB Joint Injection/Aspiration Joint Injection/Aspiration Details: Procedure was explained to the patient and consent was obtained. ? The area of interest was identified and confirmed with patient. ?This was subsequently cleaned with chlorhexidine x3. ? The area was then anesthetized using ethyl chloride spray. 40 mg Kenalog with 1 cc 1% lidocaine was injected without issue. ?Minimal to no bleeding. ?Patient tolerated procedure. Primary Site: right shoulder Prep: site was prepped using aseptic technique and ethochloride spray was applied Injected: 40 mg of, Kenalog, with 1 mL of and 1% plain lidocaine Procedure: The patient tolerated the procedure well Coding 65683 - Acromioclavicular Procedure code (CPT) selection complete Office Meds lidocaine (PF) 10 mg/mL (1 %) injection solution Performing Provider: Nevin López MD [place] [facility] [place] [facility] Administered by: Nevin López MD on 10/05/24 14:40 Dose Route Admin Location Dispensed Lot Number Expiration Date [facility] [employer] Account[employer] 1 mL Infiltration left AC joint 2 mL [id number] 07/07/26 44363-808-44 [facility] Kenalog 40 mg/mL suspension for injection Performing Provider: Nevin López MD Performing Location[place] [facility] [place] [facility] Administered by: Nevin López MD on 10/05/24 14:40 Dose Route Admin Location Dispensed Lot Number Expiration Date [facility] [employer] 40 mg intra-articular left shoulder 1 mL [id number] 08/07/26 9675-4787-30 [facility] lidocaine (PF) 10 mg/mL (1 %) injection solution Performing Provider: Nevin López MD Performing Location: [facility] [place] [facility] Administered by: Nevin López MD on 10/05/24 14:40 Dose Route Admin Location Dispensed Lot Number Expiration Date [place] [employer] 1 mL Infiltration Right AC joint 2 mL [id number] 07/07/26 49025-102-13 [facility] Kenalog 40 mg/mL suspension for injection Performing Provider: Neivn López MD Performing Location: [facility] [place] [facility] Administered by: Nevin López MD on 10/05/24 14:40 Dose Route Admin Location Dispensed Lot Number Expiration Date [facility] Construction Accountant 40 mg intra-articular right AC joint 1 mL [id number] 08/07/26 5609-5397-61 [facility] Results Reviewed Results Reviewed: Laboratory Tests 06/08/21 10/13/23 14:36 11:27 ESR 14 C-Reactive Protein 0.26 ANGE Screen NEGATIVE XR Bilateral Hands 08/07/21 FINDINGS: Right Hand: No periarticular osteopenia or active erosions. Mild osteoarthritis of the interphalangeal joints with narrowing and small marginal osteophytes. Carpal joint spaces are preserved. No acute osseous abnormality. Left Hand: No periarticular osteopenia or erosions. Mild osteoarthritis of the interphalangeal joints with narrowing and small marginal osteophytes. Probable remote, healed fracture of the 3rd metacarpal. Moderate osteoarthritis of the triscaphoid articulation. XR Bilateral Shoulders 11/2020 FINDINGS: RIGHT SHOULDER: Small acromioclavicular marginal osteophytes. Small lateral subacromial spurs. No glenohumeral joint space narrowing or marginal osteophytes. No osseous erosion. No fracture or dislocation. Small calcification associated with the distal infraspinatus tendon measuring 0.3 and 0.2 cm, consistent with calcific tendinitis. LEFT SHOULDER: Small acromioclavicular and glenohumeral marginal osteophytes. No osseous erosion. No fracture or dislocation. No abnormal soft tissue calcification. IMPRESSION: Right Shoulder: Mild acromioclavicular osteoarthritis. Distal infraspinatus calcific tendinitis. Left Shoulder: Mild acromioclavicular and glenohumeral osteoarthritis. Assessment & Plan Assessment & Plan (1) Polyarticular osteoarthritis: Code(s): M15.9 - Polyosteoarthritis, unspecified Category: Medical Plan: #Polyarticular OA Patient is a 74-year-old female with polyarticular osteoarthritis here today for follow up. Currently complaining of bilateral shoulder pain for which she received bilateral steroid injection to the bilateral AC joints. Has improvement in her knee pain after Euflexxa series. Complaining of muscle pain and aches which I encouraged stretching and regular exercise for. Plan - s/p bilateral AC joint steroid injection today - Orders: Orders AMB Joint Injection/Aspiration Today M19.011 - Primary osteoarthritis, right shoulder, M19.012 - Primary osteoarthritis, left shoulder AMB Joint Injection/Aspiration Today M19.011 - Primary osteoarthritis, right shoulder, M19.012 - Primary osteoarthritis, left shoulder Medications: Refilled pregabalin (Lyrica) 100 mg PO BID 90 days 180 caps 2RF M19.041 - Primary osteoarthritis, right hand, M19.042 - Primary osteoarthritis, left hand Discontinued prednisone Discontinued Reason: Patient Completed Course 40 mg (2 x 20 mg) PO DAILY 5 days 10 tabs 0RF acetaminophen (Tylenol Extra Strength) Discontinued Reason: Doctor's Order 500 mg PO QID PRN 30 tabs 0RF pain albuterol sulfate Discontinued Reason: Duplicate 2.5 mg (3 mL) inhalation TID 30 days 270 mL 2RF J45.20 - Mild intermittent asthma, uncomplicated alcohol swabs (Alcohol Prep Pads) Discontinued Reason: Patient Completed Course 1 pad topical QID 100 ea 6RF e11.40 Coding Level of Care Code Est Pt Level 3 (83018) Diagnoses Polyarticular osteoarthritis M15.9 CPT Codes Coding - Joint 5: 56279 - Acromioclavicular ([id number]) Coding - Joint 5: 13377 - Acromioclavicular ([id number])
[2024-10-05 11:46] VITALS: BP 134/70; PULSE 81; RESP 16; O2SAT 96; BMI 30.9
--- OUTSIDE RECORDS SUMMARY | 2024-10-05 12:33 | XMS_ITS | Encounter Summary ---
Author Organization [employer] Address [address] [place] [address] Care Team Providers Care Vehicle Trimmer Name Role Phone Abelino Montenegro MD Primary Care Provide r Reason for Visit * Reason Comments Med Refill Encounter Details Date Type Department Care Team ([facility] st Contact Info) Description 03/21/2023 Refill [facility] [address], [place] [phone] Debbie Jaime MD [address] [place], [place] [phone] Gastroesophageal reflux disease without esophagitis Social History [...] as of this encounter Care Teams Vehicle Trimmer Relationship Specialty Start Date End Date Abelino Montenegro MD [address] [place] [id number] PCP - General Internal Medicine 03/10/21 documented as of this encounter
== END 2024-10-05 12:11 | disposition home or self-care (01) ==
LOC: HO.RHE 11:41
PROVIDERS: Visit Provider Student in an Organized Health Care Education/Training Program
DX: M19.011 Primary osteoarthritis, right shoulder (principal); M19.012 Primary osteoarthritis, left shoulder; M15.9 Polyosteoarthritis, unspecified
CPT/HCPCS: 20605; 99213

== ENCOUNTER → 2024-10-05 11:40 | Outpatient (BNVA) | payer OTHER, SELFPAY | PROVIDERS: Visit Provider Student in an Organized Health Care Education/Training Program | DX: M19.011 Primary osteoarthritis, right shoulder (principal); M19.012 Primary osteoarthritis, left shoulder; E11.42 Type 2 diabetes mellitus with diabetic 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 | CPT/HCPCS: 20605; 99212; J3300 ==

== ENCOUNTER 2024-10-20 13:34 | Emergency (ER) | payer OTHER, SELFPAY ==
[2024-10-20 13:37] VITALS: BP 161/80; PULSE 92; RESP 18; TEMP 36.6; O2SAT 98; BMI 28.9
--- NOTE | 2024-10-20 13:37 | ED.GENADULT ---
HPI - General Adult General Chief complaint: General Medical Stated complaint: unable to move neck, pain in legs Time Seen by Provider: 10/20/24 13:52 Source: patient and family (Daughter at bedside corroborating history) Mode of arrival: ambulatory Limitations: no limitations History of Present Illness ED Provider: Rajani Coffman PA-C HPI narrative: 74-year-old Israeli-speaking female accompanied by her daughter, with medical history of GERD, cervical spondylitis, lumbar spondylosis, HLD, arthritis, IDT2DM, presents to the ED due to 3 days of acute on chronic neck pain and thigh pain. Patient states 3 days ago she developed sudden onset neck spasms where she was not able to turn her neck. She also reports chronic for 1 year bilateral thigh pain that starts at the lumbar back and radiates down both anterior and posterior thighs and distal extremities. States she is incontinent at baseline. Patient states she has been taking Tylenol with no relief. Denies chest pain, shortness of breath, nausea, vomiting, abdominal pain, black/tarry stool, urinary symptoms MD complaint: neck pain Onset (ago): day(s) (3) Location: neck and lower extremity (B/L thighs) Radiation: distal (Thigh pain radiates to distal B/L legs) Severity: moderate Quality: burning Pain Consistency: constant Relieving factors: none Related Data Home Medications ?Medication ?Instructions ?Recorded ?Confirmed trazodone 50 mg tablet 25 mg PO BEDTIME PRN Pain 07/08/20 10/05/24 albuterol sulfate 90 mcg/actuation 0 mcg inhalation 09/17/21 10/05/24 aerosol inhaler (Ventolin HFA) meclizine 25 mg tablet 25 mg PO BID PRN 03/25/22 10/05/24 venlafaxine 37.5 mg 37.5 mg PO DAILY depressive 08/10/22 10/05/24 capsule,extended release 24 hr disorder empagliflozin 12.5 mg-metformin 1 tab PO BID 04/19/23 10/05/24 1,000 mg tablet (Synjardy) levocetirizine 5 mg tablet 5 mg PO DAILY 08/24/24 10/05/24 lisinopril 40 mg tablet 40 mg PO DAILY 08/24/24 10/05/24 Previous Rx's ?Medication ?Instructions ?Recorded fluticasone propionate 220 1 puff PO BID 90 days #12 grams 10/15/20 mcg/actuation HFA aerosol inhaler (Flovent HFA) blood sugar diagnostic (FreeStyle #100 ea 11/13/20 Lite Strips) lancets 28 gauge (FreeStyle #100 ea 11/13/20 Lancets) loratadine 10 mg tablet 10 mg PO DAILY 90 days #90 tabs 01/12/21 amlodipine 5 mg tablet 5 mg PO DAILY #90 tabs 02/02/21 hydroxyzine HCl 10 mg tablet 10 mg PO TID PRN itching 30 days 02/24/21 #30 tabs dulaglutide 1.5 mg/0.5 mL 1.5 mg (0.5 mL) subcut QWEEK 30 06/24/21 subcutaneous pen injector days #2.5 mL montelukast 10 mg tablet 10 mg PO DAILY #90 tabs 08/18/21 aspirin 81 mg tablet,delayed 81 mg PO DAILY #90 tabs 11/06/21 release acetaminophen 650 mg 650 mg PO Q12H PRN pain #60 tabs 12/30/21 tablet,extended release (Mapap Arthritis Pain) oxybutynin chloride 10 mg 10 mg PO DAILY 90 days #90 tabs 08/02/22 tablet,extended release 24 hr codeine 10 mg-guaifenesin 100 mg/5 5 ml PO Q6H PRN cough #60 mL 09/11/23 mL oral liquid hydrocortisone 1 % topical cream 1 appl topical BID PRN rash #28.35 12/14/23 grams calcium polycarbophil 625 mg 1,250 mg (2 x 625 mg) PO BID #120 01/12/24 tablet (Fiber-Lax) tabs eluxadoline 75 mg tablet (Viberzi) 75 mg PO BID #60 tabs 08/24/24 famotidine 40 mg tablet 40 mg PO QPM #90 tabs 08/24/24 methylcellulose (laxative) 500 mg 1,000 mg (2 x 500 mg) PO DAILY 30 08/24/24 tablet (Citrucel) days #60 tabs pantoprazole 40 mg tablet,delayed 40 mg PO DAILY 90 days #90 tabs 08/24/24 release simethicone 180 mg capsule 180 mg PO TID #90 caps 08/24/24 pregabalin 100 mg capsule (Lyrica) 100 mg PO BID 90 days #180 caps 10/05/24 Allergies Allergy/AdvReac Type Severity Reaction Status Date / Time No Known Allergies Allergy Verified 10/20/24 13:39 [No Known Allergies*] Review of Systems Review of Systems: CONST: Negative for fever, body aches and chills. HENT: Negative for headache, congestion, sore throat, swelling. POS cervical neck pain EYES: Negative for discharge/pain or vision changes. RESP: Negative for cough/hemoptysis and shortness of breath. CV: Negative chest pain, difficulty breathing, palpitations. ABD: Negative pain, nausea, vomiting. : Negative increase frequency, dysuria, blood in urine or stool. MUSC: Negative for muscle aches, edema. POS lumbar back pain radiating to B/L distal legs. SKIN: Negative rash, lesions/sores. NEURO: Negative headache, dizziness, weakness. Yes all other systems are reviewed and are negative PMFSH Past Medical History Attestation statement: The following information was validated with the patient. Source: old records reviewed, obtained from family (Daughter at bedside corroborating history) and nursing notes reviewed Medical History Polyarticular osteoarthritis Bilateral primary osteoarthritis of knee Bilateral hand pain Epigastric pain Urinary incontinence Asthma Abnormal CT scan Colon cancer screening Pre-op examination Urinary urgency Urinary frequency Cervicalgia Fall Polyarthralgia Mild recurrent major depression Lab test positive for detection of COVID-19 virus Diabetes mellitus Abdominal bloating COVID-19 vaccine series completed Lumbar spondylosis Cervical spondylitis Muscle weakness Dyslipidemia Elevated CPK Osteopenia Diabetic 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 associated with type 2 diabetes mellitus 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 social 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 Diabetes type 2, controlled Urge urinary incontinence Moderate asthma Vertigo Polyarthralgia Depression with anxiety Essential hypertension Surgical History History of surgery on extremity Hx of colonoscopy History of esophagogastroduodenoscopy (EGD) S/P SHERRY-BSO (total abdominal hysterectomy and bilateral salpingo-oophorectomy) History of tubal ligation Family History Family History Father Hypertension Mother Cancer Sister Breast cancer Social History Social History Household Members: Significant Other Housing: House Alcohol intake: never Patient Tobacco Use Status: Never used Tobacco e-Cigarette/Vaping Use: Never Used Second Hand Smoke Exposure: No Advance Directives: No Advance Directives Information Provided: No service: No Current occupational status: disabled Physical Exam ED Vital Signs: Vital Signs - 24 hr 10/20/24 13:37 10/20/24 14:00 10/20/24 16:00 Temperature 97.8 F 98.4 F 98.0 F Pulse Rate 92 87 87 Respiratory Rate 18 15 16 Blood Pressure 161/80 H 164/85 H 150/81 H Pulse Oximetry 98 96 98 Oxygen Delivery Method Room Air Room Air Room Air BMI result Body Mass Index 28.9 GENERAL APPEARANCE: ?AxOx4, uncomfortable appearing, no acute distress. HEENT: ?NC, AT. MMM. EOMI, clear conjunctiva, oropharynx clear. NECK: ?Supple without lymphadenopathy. Unable to ROM due to pain, sensation intact, no anatomical abnormalities or bony step-offs noted no midline cervical tenderness, TTP of B/L paraspinal cervical muscles. No edema, ecchymosis, erythema HEART:? Normal rate and regular rhythm, normal S1/S1, no m/r/g LUNGS:? CTAB, moving air well. No crackles or wheezes are heard. ABDOMEN: ?Soft, nontender, nondistended with good bowel sounds heard. BACK: No CVAT, no obvious deformity. No midline spinal tenderness, no anatomical abnormalities or bony step-offs noted. TTP of B/L paraspinal lumbar muscles. EXTREMITIES: ?Without cyanosis, clubbing or edema. Rectal: Anal wink intact, appropriate rectal muscular tone. NEUROLOGICAL: ?Grossly nonfocal. Alert and oriented, moving all 4 extremities. Observed to ambulate with normal gait. Skin: ?Warm and dry without any rash. Course Course Course Narrative: This is a rapid medical exam performed by Sherlyn Louis NP: Additional HPI, ROS, PE not included below will be deferred to primary provider. Patient is a 74-year-old Israeli speaking female with history of polyarticular osteoarthritis, spondylitis/spondylosis, GERD, IBS, POST, T2DM, asthma, HTN presenting to the ED with daughter who reports that patient is complaining of neck pain and bilateral leg pain from the thighs down for the past 3 days. Denies fall or other trauma. Plan: viral swab, basic labs Medications Administered Discontinued Medications Generic Name Dose Route Start Last Admin Trade Name Hasmukh PRN Reason Stop Dose Admin Diazepam 2 mg 10/20/24 14:46 10/20/24 14:55 Diazepam 2 Mg Tablet PO 10/20/24 14:47 2 mg ONCE ONE Administration Ketorolac Tromethamine 15 mg 10/20/24 14:46 10/20/24 14:55 Ketorolac Tromethamine 15 Mg/Ml Vial IM 10/20/24 14:47 15 mg ONCE ONE Administration Prednisone 40 mg 10/20/24 14:46 10/20/24 14:55 Prednisone 20 Mg Tablet PO 10/20/24 14:47 40 mg ONCE ONE Administration Medical Decision Making Medical Decision Making [facility] Narrative: 74-year-old Israeli-speaking female accompanied by her daughter, with medical history of GERD, cervical spondylitis, lumbar spondylosis, HLD, arthritis, IDT2DM, presents to the ED due to 3 days of acute on chronic neck pain and thigh pain. Patient states 3 days ago she developed sudden onset neck spasms where she was not able to turn her neck. She also reports chronic for 1 year bilateral thigh pain that starts at the lumbar back and radiates down both anterior and posterior thighs and distal extremities. States she is incontinent at baseline. VSS, patient is visibly uncomfortable, in no acute distress. On physical exam patient has tenderness of B/L cervical paraspinal muscles, and B/L trapezius muscles. No anatomical abnormalities, no bony step-offs noted, no midline cervical tenderness. Sensation intact. Patient unable to engage ROM due to pain of the neck. Patient with TTP over B/L lumbar paraspinal muscles, positive B/L straight leg test. No lumbar bony step-offs, no anatomical abnormalities. Sensation intact of B/L lateral and medial thighs. Patient incontinent at baseline. Will perform SANTANA with plate glass installer to ensure proper muscular tone. Will medicate with 40 mg prednisone, 2 mg Valium, and 15 mg IM Toradol for inflammation and pain relief. Course 15:05- digital rectal exam performed with plate glass installer morgue technician Haylee. Rectal musculature has appropriate tone-no concern for cauda equina. At this time suspect this is a muscular spasm/torticollis, with lumbar radiculopathy. Will reassess patient's pain after medicating. Patient with most recent imaging done 07/02 of spinal MRI reveals degenerative changes of the cervical and lumbar back. Patient has also had several x-rays of the lumbar and cervical spine which reveal degenerative changes. Do not believe there is an emergent need for imaging at this time due to sensation being intact, appropriate anal tone. 16:23-patient's pain has improved after being medicated with prednisone, Toradol, Valium. Patient feels confident to go home for self-care. Counseled patient on following up with her PCP to manage her degenerative disc disease. Will discharge patient home with 5 day course of Flexeril to manage acute torticollis and lumbar radiculopathy. Differential Diagnosis Differential Diagnoses: The differential diagnosis associated with the presentation includes Cauda equina syndrome Cervical muscle spasm Lumbar radiculopathy Osteoarthritis Admission/Observation Consideration of admission/observation: Escalation of care including admission/observation considered Lab Data MDM Lab Attestation statement: I reviewed the patient's lab results. 10/20/24 14:01 10/20/24 14:01 Labs: Lab Results 10/20/24 Range/Units 14:01 WBC 11.0 H (4.8-10.8) X10*3/uL RBC 4.25 (4.20-5.50) X10*6/uL Hgb 12.3 (12.0-16.0) g/dl Hct 36.9 L (37.0-47.0) % MCV 86.8 (80.0-98.0) fL MCH 28.9 (27.0-33.0) pg MCHC 33.3 (31.0-35.0) g/dl RDW 15.7 (11.0-16.0) % Plt Count 288 D (160-400) X10*3/uL MPV 10.1 (9.4-12.3) fL Immature Gran % (Auto) 0.5 H (0.0-0.4) % Neut % (Auto) 67.7 (45-73) % Lymph % (Auto) 21.0 (20-40) % [place] % (Auto) 9.7 (2-11) % Eos % (Auto) 0.9 (0-4) % Baso % (Auto) 0.2 (0-2) % Lymph # (Auto) 2.3 (1.2-4.9) X10*3/uL [place] # (Auto) 1.1 (0.1-1.2) X10*3/uL Eos # (Auto) 0.1 (0.0-0.4) X10*3/uL Baso # (Auto) 0.0 (0.0-0.2) X10*3/uL Abs Immat Gran (auto) 0.05 H (0.00-0.03) X10*3/uL Absolute Neuts (auto) 7.5 (2.0-8.3) x10*3/uL Absolute Nucleated RBC 0.000 (0.0-0.012) X10*3/uL Nucleated RBC % (auto) 0.0 (0.0-0.2) /100WBC Sodium 140 (135-145) mmol/L Potassium 4.0 (3.3-5.1) mmol/L Chloride 102 (96-108) mmol/L Carbon Dioxide 27 (22-29) mmol/L Anion Gap 15 (12-20) BUN 18 H (9-16) mg/dL Creatinine 0.66 (0.5-1.4) mg/dL Estim Creat Clear Calc 73.1 Estimated GFR > 60 Random Glucose 102 (60-115) mg/dL Calcium 9.4 (8.4-10.2) mg/dL Influenza Type A (PCR) NEGATIVE (Negative) Influenza Type B (PCR) NEGATIVE (Negative) RSV RNA Qual (PCR) NEGATIVE (Negative) SARS-CoV-2 RNA (RT-PCR) NEGATIVE (Negative) Independent Historian Clinical information obtained from an independent historian. History obtained from or confirmed by: Other (Daughter at bedside) External Record Review External record reviewed: Inpatient record, Office record and Outpatient record Chronic Conditions Patient?s care impacted by: Other (Cervical spondylitis, lumbar spondylosis) Discharge Plan Discharge Clinical Impression: Acute torticollis, Chronic lumbar radiculopathy Patient Disposition: Home, Self-Care Instructions: Acute Low Back Pain (ED), Chronic Neck Pain (DC) Additional Instructions: You were evaluated in the ED today due to neck pain, lumbar back pain radiating down the legs. Your lab work was unconcerning. Your physical exam did not show any need for emergent imaging. On review of your imaging in the past including MRI of your spine, and x-rays of your cervical spine and lumbar spine showed degenerative disease. It is important that you follow up with your PCP to manage these diagnoses. You were medicated in the department with 40 mg of prednisone, Toradol, and Ativan to manage your muscle spasm and pain. You will be prescribed a 5 day course of Flexeril which is a muscle relaxer. Please do not drive or operate heavy machinery while using this medication as it can make you drowsy. You can also manage your pain by alternating Tylenol and Motrin every 6 hours. Please return to the emergency department if you experience fever over 100.4?, worsening back pain, loss of sensation, inability to move your arms or legs, worsening neck pain, chest pain, shortness of breath, difficulty breathing or any other new/concerning/worsening symptoms. Prescriptions: No Action Flovent HFA 220 mcg/actuation HFA aerosol inhaler 1 puff PO BID 90 Days Qty: 12 6RF loratadine 10 mg tablet 10 mg PO DAILY 90 Days Qty: 90 3RF amlodipine 5 mg tablet 5 mg PO DAILY Qty: 90 1RF hydroxyzine HCl 10 mg tablet 10 mg PO TID PRN (Reason: itching) 30 Days Qty: 30 2RF montelukast 10 mg tablet 10 mg PO DAILY Qty: 90 3RF aspirin 81 mg tablet,delayed release (DR/EC) 81 mg PO DAILY Qty: 90 3RF acetaminophen [Mapap Arthritis Pain] 650 mg tablet extended release 650 mg PO Q12H PRN (Reason: pain) Qty: 60 1RF calcium polycarbophil [Fiber-Lax] 625 mg tablet 1,250 mg PO BID Qty: 120 6RF hydrocortisone 1 % cream 1 appl topical BID PRN (Reason: rash) Qty: 28.35 0RF Rx Instructions: Apply to rash only. Avoid application to face, hands, feet and genital region codeine-guaifenesin 10-100 mg/5 mL liquid 5 ml PO Q6H PRN (Reason: cough) Qty: 60 0RF trazodone 50 mg tablet 25 mg PO BEDTIME PRN (Reason: Pain) (DME) FreeStyle Lite Strips Strip See Rx Instructions .ROUTE .MEDSUPPLY Qty: 100 11RF Rx Instructions: test three times a day (DME) lancets [FreeStyle Lancets] 28 gauge misc See Rx Instructions .ROUTE .MEDSUPPLY Qty: 100 11RF Rx Instructions: test three times a day meclizine 25 mg tablet 25 mg PO BID PRN dulaglutide 1.5 mg/0.5 mL pen injector 1.5 mg subcut QWEEK 30 Days Qty: 2.5 6RF albuterol sulfate [Ventolin HFA] 90 mcg/actuation HFA aerosol inhaler 0 mcg inhalation venlafaxine 37.5 mg capsule,extended release 24hr 37.5 mg PO DAILY oxybutynin chloride 10 mg tablet extended release 24hr 10 mg PO DAILY 90 Days Qty: 90 2RF Synjardy 12.5-1,000 mg tablet 1 tab PO BID lisinopril 40 mg tablet 40 mg PO DAILY levocetirizine 5 mg tablet 5 mg PO DAILY pantoprazole 40 mg tablet,delayed release (DR/EC) 40 mg PO DAILY 90 Days Qty: 90 2RF simethicone 180 mg capsule 180 mg PO TID Qty: 90 6RF famotidine 40 mg tablet 40 mg PO QPM Qty: 90 2RF Citrucel 500 mg tablet 1,000 mg PO DAILY 30 Days Qty: 60 6RF Viberzi 75 mg tablet 75 mg PO BID Qty: 60 5RF Rx Instructions: must administer with a meal/food, PLEASE LABEL INSTRUCTIONS IN [place] !! pregabalin [Lyrica] 100 mg capsule 100 mg PO BID 90 Days Qty: 180 2RF Print Language: Israeli
[2024-10-20 14:00] VITALS: BP 164/85; PULSE 87; RESP 15; TEMP 36.9; O2SAT 96
[2024-10-20 14:07] LABS: MANUAL DIFF FLAG NO
[2024-10-20 14:11] LABS: Basophils Percent Auto 0.2 % (0-2); Eosinophils Absolute Auto 0.1 X10*3/uL (0.0-0.4); Eosinophils Percent Auto 0.9 % (0-4); Hematocrit 36.9 % (37.0-47.0); Hemoglobin 12.3 g/dl (12.0-16.0); Imm Gran Abs Auto 0.05 X10*3/uL (0.00-0.03); Imm Gran Pct Auto 0.5 % (0.0-0.4); Lymphocytes Absolute Auto 2.3 X10*3/uL (1.2-4.9); Mean Corpuscular HGB Conc 33.3 g/dl (31.0-35.0); Mean Corpuscular Hemoglobin 28.9 pg (27.0-33.0); Mean Corpuscular Volume 86.8 fL (80.0-98.0); Mean Platelet Volume 10.1 fL (9.4-12.3); Monocytes Absolute Auto 1.1 X10*3/uL (0.1-1.2); Monocytes Percent Auto 9.7 % (2-11); Neutrophils Absolute Auto 7.5 x10*3/uL (2.0-8.3); Neutrophils Percent Auto 67.7 % (45-73); Platelet Count 288 X10*3/uL (160-400); Red Blood Count 4.25 X10*6/uL (4.20-5.50); Red Cell Distribution Width 15.7 % (11.0-16.0)
--- OUTSIDE RECORDS SUMMARY | 2024-10-20 14:21 | XMS_ITS | Encounter Summary ---
Author Organization [employer] Address [address] [place] [address] Care Team Providers Care Police Manager Name Role Phone Abelino Montenegro MD Primary Care Provide r Reason for Visit * Reason Comments Med Refill Encounter Details Date Type Department Care Team ([facility] st Contact Info) Description 03/21/2023 Refill [facility] [address], [place] [phone] Debbie Jaime MD [address] [place], [place] [phone] Gastroesophageal reflux disease without esophagitis Social History [...] documented as of this encounter Care Teams Police Manager Relationship Specialty Start Date End Date Abelino Montenegro MD [address] [place] [id number] PCP - General Internal Medicine 03/10/21 documented as of this encounter
[2024-10-20 14:39] LABS: Anion Gap 15 (12-20); Blood Urea Nitrogen 18 mg/dL (9-16); Calcium 9.4 mg/dL (8.4-10.2); Carbon Dioxide 27 mmol/L (22-29); Chloride 102 mmol/L (96-108); Creatinine Clr Calc Pharmacy 73.1; Estimated Glomerular Filt Rate > 60; Glucose Random 102 mg/dL (60-115); Sodium 140 mmol/L (135-145)
[2024-10-20 14:45] LABS: Influenza A PCR NEGATIVE (Negative); Influenza B PCR NEGATIVE (Negative); Resp Syncy Virus RNA Qual PCR NEGATIVE (Negative); SARS COV2 PCR INHOUSE NEGATIVE (Negative)
[2024-10-20] MEDS: Ketorolac Tromethamine 15 MG/ML VIAL IM (14:55)
[2024-10-20] MEDS: predniSONE 20 MG TABLET 40 MG PO (14:55)
[2024-10-20] MEDS: diazePAM 2 MG TABLET PO (14:55)
--- NOTE | 2024-10-20 14:58 | PC.NURSE ---
patient a&ox3, labs previously drawn, pt c/o 02/15 pain to legs and neck/generalized, pt medicated per order, call [facility] within reach, plan of care ongoing
[2024-10-20 16:00] VITALS: BP 150/81; PULSE 87; RESP 16; TEMP 36.7; O2SAT 98
[2024-10-20 17:12] VITALS: BP 158/78; PULSE 82; RESP 16; TEMP 36.8; O2SAT 98
== END 2024-10-20 17:12 | disposition home or self-care (01) ==
PROVIDERS: Registered Nurse Emergency; Emergency Provider Emergency Medicine; PCP Internal Medicine
DX: M43.6 Torticollis (principal); G89.29 Other chronic pain; M54.16 Radiculopathy, lumbar region; Z03.818 Encounter for observation for suspected exposure to other biological agents ruled out
CPT/HCPCS: 0241U; 80048; 85025; 96372; 99284; J1885

== ENCOUNTER 2024-10-29 10:42 | Emergency (ER) | payer OTHER, SELFPAY ==
--- NOTE | 2024-10-29 11:15 | ED.GENADULT ---
HPI - General Adult General Chief complaint: Neuro Symptoms/Deficit Stated complaint: Swollen Face & Legs Time Seen by Provider: 10/29/24 15:02 Source: patient, family (Daughter) and production control clerk Mode of arrival: ambulatory Limitations: no limitations History of Present Illness ED Provider: DR. Blevins HPI narrative: 74-year-old female accompanied by H GERD, cervical spondylitis, lumbar spondylitis, HLD, arthritis, T2 DM presented for evaluation of multiple symptoms of upper lip swelling x this morning, patient also been complaining of bilateral lower extremity numbness, no weakness, no slurred speech, no headache, no blurry vision, no double vision. Patient is taking lisinopril for blood pressure for many years never swelling of her lips in the past, patient declined any change in her daily routine including detergent, no history of taking new food. No itching, no hives. Related Data Home Medications ?Medication ?Instructions ?Recorded ?Confirmed trazodone 50 mg tablet 25 mg PO BEDTIME PRN Pain 07/08/20 10/05/24 albuterol sulfate 90 mcg/actuation 0 mcg inhalation 09/17/21 10/05/24 aerosol inhaler (Ventolin HFA) meclizine 25 mg tablet 25 mg PO BID PRN 03/25/22 10/05/24 venlafaxine 37.5 mg 37.5 mg PO DAILY depressive 08/10/22 10/05/24 capsule,extended release 24 hr disorder empagliflozin 12.5 mg-metformin 1 tab PO BID 04/19/23 10/05/24 1,000 mg tablet (Synjardy) levocetirizine 5 mg tablet 5 mg PO DAILY 08/24/24 10/05/24 lisinopril 40 mg tablet 40 mg PO DAILY 08/24/24 10/05/24 Previous Rx's ?Medication ?Instructions ?Recorded fluticasone propionate 220 1 puff PO BID 90 days #12 grams 10/15/20 mcg/actuation HFA aerosol inhaler (Flovent HFA) blood sugar diagnostic (FreeStyle #100 ea 11/13/20 Lite Strips) lancets 28 gauge (FreeStyle #100 ea 11/13/20 Lancets) loratadine 10 mg tablet 10 mg PO DAILY 90 days #90 tabs 01/12/21 amlodipine 5 mg tablet 5 mg PO DAILY #90 tabs 02/02/21 hydroxyzine HCl 10 mg tablet 10 mg PO TID PRN itching 30 days 02/24/21 #30 tabs dulaglutide 1.5 mg/0.5 mL 1.5 mg (0.5 mL) subcut QWEEK 30 06/24/21 subcutaneous pen injector days #2.5 mL montelukast 10 mg tablet 10 mg PO DAILY #90 tabs 08/18/21 aspirin 81 mg tablet,delayed 81 mg PO DAILY #90 tabs 11/06/21 release acetaminophen 650 mg 650 mg PO Q12H PRN pain #60 tabs 12/30/21 tablet,extended release (Mapap Arthritis Pain) oxybutynin chloride 10 mg 10 mg PO DAILY 90 days #90 tabs 08/02/22 tablet,extended release 24 hr codeine 10 mg-guaifenesin 100 mg/5 5 ml PO Q6H PRN cough #60 mL 09/11/23 mL oral liquid hydrocortisone 1 % topical cream 1 appl topical BID PRN rash #28.35 12/14/23 grams calcium polycarbophil 625 mg 1,250 mg (2 x 625 mg) PO BID #120 01/12/24 tablet (Fiber-Lax) tabs eluxadoline 75 mg tablet (Viberzi) 75 mg PO BID #60 tabs 08/24/24 famotidine 40 mg tablet 40 mg PO QPM #90 tabs 08/24/24 methylcellulose (laxative) 500 mg 1,000 mg (2 x 500 mg) PO DAILY 30 08/24/24 tablet (Citrucel) days #60 tabs pantoprazole 40 mg tablet,delayed 40 mg PO DAILY 90 days #90 tabs 08/24/24 release simethicone 180 mg capsule 180 mg PO TID #90 caps 08/24/24 pregabalin 100 mg capsule (Lyrica) 100 mg PO BID 90 days #180 caps 10/05/24 cyclobenzaprine 10 mg tablet 10 mg PO BEDTIME 5 days #5 tabs 10/20/24 amlodipine 5 mg tablet 5 mg PO DAILY #20 tabs 10/29/24 Allergies Allergy/AdvReac Type Severity Reaction Status Date / Time No Known Allergies (No Known Allergy Verified 10/29/24 11:18 Allergies*) Review of Systems Review of Systems: All other systems are reviewed and are negative Constitutional: Reports as per HPI and Reports no additional constitutional complaints Eyes: Reports as per HPI and Reports no additional eye complaints Reports system reviewed and no additional complaints, except as documented Cardiovascular: Reports as per HPI and Reports no additional cardiovascular complaints Respiratory: Reports as per HPI and Reports no additional respiratory complaints Gastrointestinal: Reports as per HPI and Reports no additional gastrointestinal complaints Genitourinary: Reports no additional female genitourinary complaints Musculoskeletal: Reports no additional musculoskeletal complaints Skin/Breast: Reports system reviewed and no additional complaints, except as docu Psychiatric: Reports no additional psychiatric complaints Endocrine: Reports no additional endocrine complaints Hematologic/Lymphatic: Reports no additional hematologic/lymphatic complaints Allergic/Immunologic: Reports no additional allergic/immunologic complaints Reports system reviewed and no additional complaints, except as documented and Reports Abnormal speech present [facility] Past Medical History Medical History Polyarticular osteoarthritis Bilateral primary osteoarthritis of knee Bilateral hand pain Epigastric pain Urinary incontinence Asthma Abnormal CT scan Colon cancer screening Pre-op examination Urinary urgency Urinary frequency Cervicalgia Fall Polyarthralgia Mild recurrent major depression Lab test positive for detection of COVID-19 virus Diabetes mellitus Abdominal bloating COVID-19 vaccine series completed Lumbar spondylosis Cervical spondylitis Muscle weakness Dyslipidemia Elevated CPK Osteopenia Diabetic 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 associated with type 2 diabetes mellitus scientific specialist (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 Diabetes type 2, controlled Urge urinary incontinence Moderate asthma Vertigo Polyarthralgia Depression with anxiety Essential hypertension Surgical History History of surgery on extremity Hx of colonoscopy History of esophagogastroduodenoscopy (EGD) S/P SHERRY-BSO (total abdominal hysterectomy and bilateral salpingo-oophorectomy) History of tubal ligation Family History Family History Father Hypertension Mother Cancer Sister Breast cancer Social History Social History Household Members: Significant Other Housing: House Alcohol intake: never Patient Tobacco Use Status: Never used Tobacco e-Cigarette/Vaping Use: Never Used Second Hand Smoke Exposure: No Advance Directives: No Advance Directives Information Provided: Yes service: No Current occupational status: disabled Physical Exam ED Vital Signs: Vital Signs - 24 hr 10/29/24 11:16 Temperature 98.2 F Pulse Rate 83 Respiratory Rate 18 Blood Pressure 103/62 Pulse Oximetry 97 Oxygen Delivery Method Room Air BMI result Body Mass Index 26.4 Vital signs have been reviewed and appear to be correct. Blood pressure elevated. Heart rate normal. Respiratory rate normal. Temperature normal. Oxygen saturation normal. Appearance: Alert. Oriented X3. No acute distress. Head: Normal external exam. Normocephalic. Atraumatic. No Bolton signs noted. No raccoon eyes noted, Eyes: PERRLA. EOMI. Conjunctiva and sclera normal. Eyelids normal. ENT: TM's Normal. Pharynx normal. Uvula midline. Moist mucous membranes. No trismus noted. No drooling noted. No muffled voice noted. Neck: Normal inspection. Neck supple. FROM. No adenopathy. Thyroid Normal. No meningeal signs. No neck mass noted. CVS: Normal heart rate and rhythm. Heart sound normal. No murmurs noted. Pulses normal throughout. Respiratory: No respiratory distress. Painless inspiration. Breath sounds normal. No wheezes/rales/rhonchi noted. Chest nontender. No accessory muscle usage noted or decreased air movement noted. Abdomen: Soft and nontender. Bowel sounds normal in all 4 quadrants. No distention noted. No organomegaly noted. No visible injury noted. Back: No CVA tenderness. Full range of motion noted. Skin: Skin warm and dry. Normal skin color. Normal skin turgor. No rashes/lesions/lacerations noted. Extremities: No lower extremity edema. Extremities exhibit normal range of motion. Extremities nontender. Neuro: Mental status: Normal attention, orientation, memory, and affect. Cranial nerves: Pupils are equal, round and reactive to light, EOMI, visual cornelius are fall, face is symmetric, facial sensations are normal. Motor examination normal muscle tone, strength to 4 extremities. DTR are +2, planter's are flexor. Sensory exam; normal coordination, no ataxia, gait stable. Cerebellar exam: [id number]-pb-[id number] and zhyv-[id number]-[id number] is normal. Extrapyramidal system: No tremors, no rigidity with normal facial expressions. Pronator drift not present NIH Stroke Scale Time: 15:19 Level of Consciousness: Alert Level of Consciousness Questions: Answers both questions correctly Level of Consciousness Commands: Performs both tasks correctly Best Gaze: Normal Visual: No visual loss Facial Palsy: Normal Motor Arm (Right): No drift Motor Arm (Left): No drift Motor Leg (Right): No drift Motor Leg (Left): No drift Limb Ataxia: Absent Sensory: Normal Best Language: No aphasia Dysarthia: Normal Extinction and Inattention: No abnormality Score: 0 Course Course Course Narrative: This is an RME: Additional HPI, ROS, PE not included below will be deferred to primary provider. RME assessment and note performed by: Apurva White PA-C This is a [id number]-[place] speaking female, with a hx of cervical spondylitis, DM, dyslipidemia, polyarthralgia, asthma, who presents to the ER with a complaint right sided facial swelling, right arm pain, and BL leg numbness since yesterday. She is speaking in full sentences under no acute distress. On exam, no appreciable right-sided swelling. Cloth Booker strength strong equal, strength in lower extremities equal. She is neurologically intact, negative pronator drift. Plan: Labs, EKG, further ER evaluation needed. Reevaluation(s) Reevaluation #1: Lip swelling with no airway compromise, no difficulty breathing, no voice change, no difficulty swallowing, able to swallow her secretions. Pressure for many years never had any reaction patient otherwise declined any new offending agent to cause patient's swelling and symptoms will discontinue lisinopril and start on amlodipine and follow-up with PCP. Time: 15:20 Medical Decision Making Differential Diagnosis Differential Diagnoses: The differential diagnosis associated with the presentation includes (Angioedema, allergic reaction, airway compromise, CVA, electrolyte derangement, severe anemia.) Admission/Observation Consideration of admission/observation: Escalation of care including admission/observation considered Lab Data [facility] Lab Attestation statement: I reviewed the patient's lab results. 10/29/24 11:45 10/29/24 11:45 Labs: Lab Results 10/29/24 Range/Units 11:45 WBC 8.1 (4.8-10.8) X10*3/uL RBC 4.36 (4.20-5.50) X10*6/uL Hgb 12.6 (12.0-16.0) g/dl Hct 37.8 (37.0-47.0) % MCV 86.7 (80.0-98.0) fL MCH 28.9 (27.0-33.0) pg MCHC 33.3 (31.0-35.0) g/dl RDW 15.9 (11.0-16.0) % Plt Count 253 (160-400) X10*3/uL MPV 9.6 (9.4-12.3) fL Immature Gran % (Auto) 0.5 H (0.0-0.4) % Neut % (Auto) 56.7 (45-73) % Lymph % (Auto) 32.4 (20-40) % [place] % (Auto) 8.4 (2-11) % Eos % (Auto) 1.8 (0-4) % Baso % (Auto) 0.2 (0-2) % Lymph # (Auto) 2.6 (1.2-4.9) X10*3/uL [place] # (Auto) 0.7 (0.1-1.2) X10*3/uL Eos # (Auto) 0.2 (0.0-0.4) X10*3/uL Baso # (Auto) 0.0 (0.0-0.2) X10*3/uL Abs Immat Gran (auto) 0.04 H (0.00-0.03) X10*3/uL Absolute Neuts (auto) 4.6 (2.0-8.3) x10*3/uL Absolute Nucleated RBC 0.000 (0.0-0.012) X10*3/uL Nucleated RBC % (auto) 0.0 (0.0-0.2) /100WBC Sodium 141 (135-145) mmol/L Potassium 3.9 (3.3-5.1) mmol/L Chloride 107 (96-108) mmol/L Carbon Dioxide 26 (22-29) mmol/L Anion Gap 12 (12-20) BUN 13 (9-16) mg/dL Creatinine 0.55 (0.5-1.4) mg/dL Estim Creat Clear Calc 93.8 Estimated GFR > 60 Random Glucose 115 (60-115) mg/dL Calcium 9.9 (8.4-10.2) mg/dL Magnesium 1.7 (1.6-2.6) mg/dL Total Bilirubin 0.4 (0.0-1.0) mg/dL Direct Bilirubin 0.2 (0.0-0.5) mg/dL AST 38 H (5-31) U/L ALT 61 H (0-31) U/L Alkaline Phosphatase 101 (39-117) U/L Troponin I High Sens < 2.7 (<3.5-17.0) ng/L Total Protein 7.7 (6.5-8.0) g/dL Albumin 4.0 (3.5-5.0) g/dL Lipase 23 (8-78) U/L Discharge Plan Discharge Clinical Impression: Angioedema Patient Disposition: Home, Self-Care Instructions: Angioedema (ED) Additional Instructions: Stop taking lisinopril replace the with amlodipine 5 mg tablet daily see your primary doctor who approved the new medication. Prescriptions: New amlodipine 5 mg tablet 5 mg PO DAILY Qty: 20 0RF Rx Instructions: Discontinue taking lisinopril. No Action Flovent HFA 220 mcg/actuation HFA aerosol inhaler 1 puff PO BID 90 Days Qty: 12 6RF loratadine 10 mg tablet 10 mg PO DAILY 90 Days Qty: 90 3RF amlodipine 5 mg tablet 5 mg PO DAILY Qty: 90 1RF hydroxyzine HCl 10 mg tablet 10 mg PO TID PRN (Reason: itching) 30 Days Qty: 30 2RF montelukast 10 mg tablet 10 mg PO DAILY Qty: 90 3RF aspirin 81 mg tablet,delayed release (DR/EC) 81 mg PO DAILY Qty: 90 3RF acetaminophen [Mapap Arthritis Pain] 650 mg tablet extended release 650 mg PO Q12H PRN (Reason: pain) Qty: 60 1RF calcium polycarbophil [Fiber-Lax] 625 mg tablet 1,250 mg PO BID Qty: 120 6RF hydrocortisone 1 % cream 1 appl topical BID PRN (Reason: rash) Qty: 28.35 0RF Rx Instructions: Apply to rash only. Avoid application to face, hands, feet and genital region codeine-guaifenesin 10-100 mg/5 mL liquid 5 ml PO Q6H PRN (Reason: cough) Qty: 60 0RF cyclobenzaprine 10 mg tablet 10 mg PO BEDTIME 5 Days Qty: 5 0RF trazodone 50 mg tablet 25 mg PO BEDTIME PRN (Reason: Pain) (DME) FreeStyle Lite Strips Strip See Rx Instructions .ROUTE .MEDSUPPLY Qty: 100 11RF Rx Instructions: test three times a day (DME) lancets [FreeStyle Lancets] 28 gauge misc See Rx Instructions .ROUTE .MEDSUPPLY Qty: 100 11RF Rx Instructions: test three times a day meclizine 25 mg tablet 25 mg PO BID PRN dulaglutide 1.5 mg/0.5 mL pen injector 1.5 mg subcut QWEEK 30 Days Qty: 2.5 6RF albuterol sulfate [Ventolin HFA] 90 mcg/actuation HFA aerosol inhaler 0 mcg inhalation venlafaxine 37.5 mg capsule,extended release 24hr 37.5 mg PO DAILY oxybutynin chloride 10 mg tablet extended release 24hr 10 mg PO DAILY 90 Days Qty: 90 2RF Synjardy 12.5-1,000 mg tablet 1 tab PO BID lisinopril 40 mg tablet 40 mg PO DAILY levocetirizine 5 mg tablet 5 mg PO DAILY pantoprazole 40 mg tablet,delayed release (DR/EC) 40 mg PO DAILY 90 Days Qty: 90 2RF simethicone 180 mg capsule 180 mg PO TID Qty: 90 6RF famotidine 40 mg tablet 40 mg PO QPM Qty: 90 2RF Citrucel 500 mg tablet 1,000 mg PO DAILY 30 Days Qty: 60 6RF Viberzi 75 mg tablet 75 mg PO BID Qty: 60 5RF Rx Instructions: must administer with a meal/food, PLEASE LABEL INSTRUCTIONS IN [place] !! pregabalin [Lyrica] 100 mg capsule 100 mg PO BID 90 Days Qty: 180 2RF Print Language: Bengali
[2024-10-29 11:16] VITALS: BP 103/62; PULSE 83; RESP 18; TEMP 36.8; O2SAT 97; BMI 26.4
--- NOTE | 2024-10-29 11:20 | ECG_ITS ---
Test Reason : tingling Blood Pressure : */* mmHG Vent. Rate : 77 BPM Atrial Rate : 77 BPM P-R Int : 230 ms QRS Dur : 100 ms QT Int : 366 ms P-R-T Axes : 8 -31 61 degrees QTcB Int : 414 ms Sinus rhythm with 1st degree A-V block Left axis deviation Left ventricular hypertrophy ( R in aVL , [place] product , Romhilt-Dill ) Abnormal ECG When compared with ECG of 23-Nov-2020 13:53, No significant change was found Referred By: Apurva White Electronically Signed By: LEVY BOOKER
[2024-10-29 11:49] LABS: MANUAL DIFF FLAG NO
[2024-10-29 11:51] LABS: Basophils Percent Auto 0.2 % (0-2); Eosinophils Absolute Auto 0.2 X10*3/uL (0.0-0.4); Eosinophils Percent Auto 1.8 % (0-4); Hematocrit 37.8 % (37.0-47.0); Hemoglobin 12.6 g/dl (12.0-16.0); Imm Gran Abs Auto 0.04 X10*3/uL (0.00-0.03); Imm Gran Pct Auto 0.5 % (0.0-0.4); Lymphocytes Absolute Auto 2.6 X10*3/uL (1.2-4.9); Lymphocytes Percent Auto 32.4 % (20-40); Mean Corpuscular HGB Conc 33.3 g/dl (31.0-35.0); Mean Corpuscular Hemoglobin 28.9 pg (27.0-33.0); Mean Corpuscular Volume 86.7 fL (80.0-98.0); Mean Platelet Volume 9.6 fL (9.4-12.3); Monocytes Absolute Auto 0.7 X10*3/uL (0.1-1.2); Monocytes Percent Auto 8.4 % (2-11); Neutrophils Absolute Auto 4.6 x10*3/uL (2.0-8.3); Neutrophils Percent Auto 56.7 % (45-73); Platelet Count 253 X10*3/uL (160-400); Red Blood Count 4.36 X10*6/uL (4.20-5.50); Red Cell Distribution Width 15.9 % (11.0-16.0); White Blood Count 8.1 X10*3/uL (4.8-10.8)
[2024-10-29 12:04] LABS: Alanine Aminotransferase 61 U/L (0-31); Alkaline Phosphatase 101 U/L (39-117); Anion Gap 12 (12-20); Aspartate Amino Transferase 38 U/L (5-31); Bilirubin Direct 0.2 mg/dL (0.0-0.5); Bilirubin Total 0.4 mg/dL (0.0-1.0); Blood Urea Nitrogen 13 mg/dL (9-16); Calcium 9.9 mg/dL (8.4-10.2); Carbon Dioxide 26 mmol/L (22-29); Chloride 107 mmol/L (96-108); Creatinine Clr Calc Pharmacy 93.8; Estimated Glomerular Filt Rate > 60; Glucose Random 115 mg/dL (60-115); Lipase 23 U/L (8-78); Magnesium 1.7 mg/dL (1.6-2.6); Potassium 3.9 mmol/L (3.3-5.1); Sodium 141 mmol/L (135-145); Total Protein 7.7 g/dL (6.5-8.0)
[2024-10-29 12:12] LABS: Troponin-I High Sensitivity < 2.7 ng/L (<3.5-17.0)
--- NOTE | 2024-10-29 13:01 | PC.NURSE ---
right upper lip swelling noted. discharge specialist aware of changes.
[2024-10-29] MEDS: Acetaminophen 325 MG TABLET 650 MG PO (15:37)
[2024-10-29 15:39] VITALS: BP 103/62; PULSE 83; RESP 18; TEMP 36.8; O2SAT 97
== END 2024-10-29 15:40 | disposition home or self-care (01) ==
PROVIDERS: Physician Assistant Medical; Emergency Provider Emergency Medicine; PCP Internal Medicine
DX: R60.0 Localized edema (principal); I44.0 Atrioventricular block, first degree; R94.31 Abnormal electrocardiogram [ECG] [EKG]; Z79.899 Other long term (current) drug therapy
CPT/HCPCS: 36415; 80048; 80076; 83690; 83735; 84484; 85025; 93005; 99283

== ENCOUNTER → 2024-10-29 11:20 | Outpatient (BNV) | payer OTHER, SELFPAY | PROVIDERS: Emergency Provider Emergency Medicine; PCP Internal Medicine; Visit Provider Internal Medicine | DX: I44.0 Atrioventricular block, first degree (principal); I51.7 Cardiomegaly | CPT/HCPCS: 93010 ==

== ENCOUNTER 2024-12-11 13:29 | Outpatient (REF) | payer OTHER, SELFPAY ==
--- NOTE | ~2024-12-11 | XR_ITS ---
EXAMINATION: XR CERVICAL SPINE 4-5 VIEWS HISTORY: neck pain COMPARISON: Comparison is made with the prior examination dated 07/29/2022. FINDINGS: AP, lateral, bilateral oblique, and open-mouth odontoid views of the cervical spine are submitted. Osseous mineralization is normal. Seven cervical vertebral bodies are identified maintaining normal height and alignment without evidence of fracture or subluxation. There is moderate to severe degenerative disc disease from C4 through C7 with disc space narrowing and osteophyte formation. There is neural foraminal stenosis on the right at C3-4 and bilaterally at C4-5 secondary to facet osteoarthritis and uncovertebral joint hypertrophy. The odontoid and lateral masses of C1 are intact. There is no prevertebral soft tissue swelling. Calcifications in the neck bilaterally are likely related to the internal carotid arteries. XR/XR cervical spine 5V IMPRESSION: Degenerative changes of the cervical spine as described. Electronically signed by: Oscar Gimenez MD 12/11/2024 02:26 PM EDT
--- OUTSIDE RECORDS SUMMARY | 2024-12-11 14:08 | XMS_ITS | Clinical Summary ---
Author Organization [facility] Address [address] [place] [id number] Care Team Providers Care Linux Unix System Administrator Name Role Phone Unavailable Primary Care Provider [...] EDT) Glucose 233(H) 70 - 100 mg/dL [facility] BUN 7 7 - 20 mg/dL [facility] Creatinine 0.6 0.5 - 1.2 mg/dL [facility] BUN/Creatinine Ratio 11.7 10.0 - 20.0 [facility] Anion Gap 11 7 - 16 [facility] CO2 21.8(L) 22.0 - 30.0 mmol/L [facility] Chloride 104 96 - 106 mmol/L [facility] Sodium 137 135 - 145 mmol/L [facility] Potassium 4.3 3.5 - 5.0 mmol/L [facility] Calcium 9.1 8.8 - 10.2 mg/dL [facility] 01/14/2011 3:30 AM EDT us Shakira [facility] LAB BLOOD ORDERABLES Final Resul t [facility] [address] [place] [id number] from Last 3 Months or Most Recently Relevant to Health Maintenance
--- OUTSIDE RECORDS SUMMARY | 2024-12-11 14:09 | XMS_ITS | Patient Health Record ---
Author Organization [facility] Address [address] [place] [address] Care Team Providers Care Steel Fabricator Name Role Phone Adriel Whitfield MD, Abelino Primary Care Provide r Oscar Mas [phone] Reason For Referral No Information Medications Medication SIG (Take, Route, Fr equency, Duration) Notes Start Date End Date Status Dicyclomine HCl 10mg 1 or 2 capsules po QID prn abdominal cramps or diarrhea for 30 Active Plan Of Treatment No Information
== END 2024-12-11 13:30 | disposition home or self-care (01) ==
LOC: HO.HHCX 13:29
PROVIDERS: PCP Internal Medicine; Visit Provider Internal Medicine
DX: M54.2 Cervicalgia (principal)
CPT/HCPCS: 72050

== ENCOUNTER → 2024-12-11 13:42 | Outpatient (BNV) | payer OTHER, SELFPAY | PROVIDERS: PCP Internal Medicine; Visit Provider Radiology Diagnostic Radiology | DX: M50.30 Other cervical disc degeneration, unspecified cervical region (principal) | CPT/HCPCS: 72050 ==

== ENCOUNTER 2024-12-13 08:26 | Outpatient (REF) | payer OTHER, SELFPAY ==
--- OUTSIDE RECORDS SUMMARY | 2024-12-13 08:39 | XMS_ITS | Encounter Summary ---
Author Organization [facility] [employer] Address [address] [facility] [address] [place] [address] Care Team Providers Care Ripening Room Attendant Name Role Phone Abelino Montenegro MD Primary Care Provide r Reason for Visit * Reason Comments Med Refill Encounter Details Date Type Department Care Team ([facility] st Contact Info) Description 03/21/2023 Refill [facility] [address] [place], [place] [phone] Debbie Jaime MD [address] [place], [place] [phone] Gastroesophageal reflux disease without esophagitis Social History [...] documented as of this encounter Care Teams Ripening Room Attendant Relationship Specialty Start Date End Date Abelino Montenegro MD [address] [place] [phone] PCP - General Internal Medicine 03/10/21 documented as of this encounter
--- OUTSIDE RECORDS SUMMARY | 2024-12-13 08:39 | XMS_ITS | Clinical Summary ---
Author Organization [facility] Address [address] [place] [id number] Care Team Providers Care Linux Unix System [...] EDT) Glucose 233(H) 70 - 100 mg/dL [facility] BUN 7 7 - 20 mg/dL [facility] Creatinine 0.6 0.5 - 1.2 mg/dL [facility] BUN/Creatinine Ratio 11.7 10.0 - 20.0 [facility] Anion Gap 11 7 - 16 [facility] CO2 21.8(L) 22.0 - 30.0 mmol/L [facility] Chloride 104 96 - 106 mmol/L [facility] Sodium 137 135 - 145 mmol/L [facility] Potassium 4.3 3.5 - 5.0 mmol/L [facility] Calcium 9.1 8.8 - 10.2 mg/dL [facility] 01/14/2011 3:30 AM EDT us Shakira [facility] LAB BLOOD ORDERABLES Final Resul t [facility] [address] [place] [id number] from Last 3 Months or Most Recently Relevant to Health Maintenance
--- OUTSIDE RECORDS SUMMARY | 2024-12-13 08:39 | XMS_ITS | Patient Health Record ---
Author Organization [facility] Address [address] [place] [address] Care Team Providers Care Dials Inspector Name Role Phone Adriel Whitfield MD, Abelino Primary Care Provide r Oscar Mas [phone] Reason For Referral No Information Medications Medication SIG (Take, Route, Fr equency, Duration) Notes Start Date End Date Status Dicyclomine HCl 10mg 1 or 2 capsules po QID prn abdominal cramps or diarrhea for 30 Active Plan Of Treatment No Information
[2024-12-13 11:46] LABS: Alanine Aminotransferase 63 U/L (0-31); Albumin Level 4.2 g/dL (3.5-5.0); Alkaline Phosphatase 78 U/L (39-117); Anion Gap 11 (12-20); Aspartate Amino Transferase 55 U/L (5-31); Blood Urea Nitrogen 15 mg/dL (9-16); Calcium 9.3 mg/dL (8.4-10.2); Carbon Dioxide 30 mmol/L (22-29); Chloride 104 mmol/L (96-108); Cholesterol 146 mg/dL (<200); Estimated Glomerular Filt Rate > 60; HDL Cholesterol 54 mg/dL (>40); Potassium 4.1 mmol/L (3.3-5.1); Sodium 141 mmol/L (135-145); Total Protein 7.7 g/dL (6.5-8.0); Triglycerides 95 mg/dL (<150)
[2024-12-13 12:13] LABS: Microalbum/Creatinine Ratio Ur 20.6 ug/mg cr (<30)
== END 2024-12-13 08:27 | disposition home or self-care (01) ==
LOC: HO.HHCL 08:26
PROVIDERS: PCP Internal Medicine; Visit Provider Internal Medicine
DX: E11.9 Type 2 diabetes mellitus without complications (principal); E78.00 Pure hypercholesterolemia, unspecified; I10 Essential (primary) hypertension
CPT/HCPCS: 36415; 80053; 80061; 82043; 82570

== ENCOUNTER 2025-03-15 12:19 | Outpatient (AMB) | payer OTHER, SELFPAY ==
--- NOTE | 2025-03-15 12:46 | A.OFFVIS_ITS ---
Vital Signs 03/15/25 12:52 Height 5 ft 2 in Weight 164 lb 3.91 oz BMI 30.0 BP 102/70 Blood Pressure Location Lt brachial Position Sitting Pulse 67 Pulse Source Pulse Oximeter Pulse Oximetry (%) 97 Oxygen Delivery Method Room Air Intake Visit Reasons: OA Intake Note: Patient presents for OA follow up. Seo Assistant Required: Yes Seo Assistant Language: [employer] Plant Superintendent Name: Ortiz [id number] Information Interpreted: non-clinical & clinical Allergies No Known Allergies (No Known Allergies*) Allergy (Verified 03/15/25 12:51) Medication List - Last Reconciled 03/15/25 by Nevin López MD acetaminophen ER (Mapap Arthritis Pain) 650 mg PO Q12H PRN albuterol sulfate 90 mcg/actuation (Ventolin HFA) 0 mcg inhalation amlodipine 5 mg PO DAILY amlodipine 5 mg PO DAILY aspirin 81 mg PO DAILY blood sugar diagnostic (FreeStyle Lite Strips) test three times a day calcium polycarbophil (Fiber-Lax) 1,250 mg (2 x 625 mg) PO BID codeine-guaifenesin 10-100 mg/5 mL 5 mL PO Q6H PRN cyclobenzaprine 10 mg PO BEDTIME 5 days dulaglutide 1.5 mg (0.5 mL) subcut QWEEK 30 days eluxadoline (Viberzi) 75 mg PO BID empagliflozin-metformin 12.5-1,000 mg (Synjardy) 1 tab PO BID famotidine 40 mg PO QPM fluticasone propionate 220 mcg/actuation (Flovent HFA) 1 puff PO BID 90 days hydrocortisone 1% 1 appl topical BID PRN hydroxyzine HCl 10 mg PO TID PRN 30 days lancets (FreeStyle Lancets) test three times a day levocetirizine 5 mg PO DAILY lisinopril 40 mg PO DAILY loratadine 10 mg PO DAILY 90 days meclizine 25 mg PO BID PRN methylcellulose (laxative) (Citrucel) 1,000 mg (2 x 500 mg) PO DAILY 30 days montelukast 10 mg PO DAILY oxybutynin chloride ER 10 mg PO DAILY 90 days pantoprazole 40 mg PO DAILY 90 days pregabalin (Lyrica) 100 mg PO BID 90 days simethicone 180 mg PO TID trazodone 25 mg PO BEDTIME PRN venlafaxine ER 37.5 mg PO DAILY HPI Comments Details: Patient is a 74-year-old female with GERD, IBS with diarrhea, 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 She complains of whole- body pain as well - Given bilateral AC joint injections at that time Today, - On Pregabalin 100mg bid and Topical diclofenac qid - States that after the injection she felt about 50% better but it did not take away all her pain - Her knees continue to feel relief - No specific complaints today, things are overall okay Rheumatologic History: Polyarthralgias secondary to osteoarthritis Current Rheumatology Medication(s): Pregabalin 100mg bid Topical diclofenac qid [facility] Medical History Polyarticular osteoarthritis Bilateral primary osteoarthritis of knee Bilateral hand pain Epigastric pain Urinary incontinence Asthma Abnormal CT scan Colon cancer screening Pre-op examination Urinary urgency Urinary frequency Cervicalgia Fall Polyarthralgia Mild recurrent major depression Lab test positive for detection of COVID-19 virus Diabetes mellitus Abdominal bloating COVID-19 vaccine series completed Lumbar spondylosis Cervical spondylitis Muscle weakness Dyslipidemia Elevated CPK Osteopenia Diabetic 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 associated with type 2 diabetes mellitus senior living (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 Diabetes type 2, controlled Urge urinary incontinence Moderate asthma Vertigo Polyarthralgia Depression with anxiety Essential hypertension Surgical History History of surgery on extremity Hx of colonoscopy History of esophagogastroduodenoscopy (EGD) S/P SHERRY-BSO (total abdominal hysterectomy and bilateral salpingo-oophorectomy) History of tubal ligation Family History Father Hypertension Mother Cancer Sister Breast cancer Social History Household Members: Significant Other Housing: House Alcohol intake: never Patient Tobacco Use Status: Never used Tobacco e-Cigarette/Vaping Use: Never Used Second Hand Smoke Exposure: No service: No Current occupational status: disabled Review of Systems Narrative Review of Systems Constitutional: Denies fever, chills, weight loss ENT: Denies vision changes, eye pain or eye redness, dental caries, dry mouth GI: Denies nausea, vomiting, diarrhea, abdominal pain, change in BM Pulm: Denies SOB, PALMER, hemoptysis, wheezing Cards: Denies chest pain, palpitations Skin: Denies Raynaud's, rash, nail changes, photosensitivity, LIFTER/DRIVER: Denies headaches, weakness, paresthesias, recurrent falls MSK: as per HPI All other systems reviewed and are unremarkable except noted above Physical Exam Exam Exam: Vital signs reviewed Physical Examination CONSTITUITIONAL Patient alert and cooperative. Well appearing and in no apparent painful distress MSK Hands * Right Hand: Able to make a fist. No swelling or tenderness to palpation of the MCPs, PIPs or DIPs. * Left Hand: Able to make a fist. No swelling or tenderness to palpation of the MCPs, PIPs or DIPs. * Herbedens nodes noted bilaterally Wrists * Right Wrist: Full ROM to flexion and extension. No swelling or TTP * Left Wrist: Full ROM to flexion and extension. No swelling or TTP Elbows * Right Elbow: Full ROM. No swelling or TTP. No TTP of the medial epicondyle. No TTP of the lateral epicondyle * Left Elbow: Full ROM. No swelling or TTP. No TTP of the medial epicondyle. No TTP of the lateral epicondyle Shoulders * Right shoulder: Good ROM. No swelling noted. No TTP of the AC joint. No TTP of the subacromial bursa. No TTP of the posterior shoulder * Left shoulder: Good ROM. No swelling noted. No TTP of the AC joint. No TTP of the subacromial bursa. No TTP of the posterior shoulder Knees * Right knee: Full ROM. No swelling noted. No TTP of the knee joint line. No TTP of pes anserine bursa * Left knee: Full ROM. No swelling noted. No TTP of the knee joint line. No TTP of pes anserine bursa. * Crepitations felt bilaterally Ankles * Right ankle: Good ankle dorsiflexion and plantar flexion. No swelling. No TTP of the ankle joint * Left ankle: Good ankle dorsiflexion and plantar flexion. No swelling. No TTP of the ankle joint Feet * Right foot: Negative squeeze test * Left foot: Negative squeeze test Tender points? * No tenderness to palpation of the bilateral trapezius, supraspinatus, anterior costochondral junctions, bilateral suboccipital muscle insertions SKIN No rashes Vital Signs: Last Vital Signs Pulse 67 03/15/25 12:52 BP 102/70 03/15/25 12:52 Pulse Ox 97 03/15/25 12:52 Oxygen Delivery Method Room Air 03/15/25 12:52 BMI result Body Mass Index 30.0 Results Reviewed Results Reviewed: Laboratory Tests 10/29/24 12/13/24 11:45 08:31 WBC 8.1 RBC 4.36 Hgb 12.6 Hct 37.8 Plt Count 253 Sodium 141 Potassium 4.1 Chloride 104 Carbon Dioxide 30 H BUN 15 Creatinine 0.56 AST 55 H ALT 63 H XR Bilateral Hands 08/07/21 FINDINGS: Right Hand: No periarticular osteopenia or active erosions. Mild osteoarthritis of the interphalangeal joints with narrowing and small marginal osteophytes. Carpal joint spaces are preserved. No acute osseous abnormality. Left Hand: No periarticular osteopenia or erosions. Mild osteoarthritis of the interphalangeal joints with narrowing and small marginal osteophytes. Probable remote, healed fracture of the 3rd metacarpal. Moderate osteoarthritis of the triscaphoid articulation. XR Bilateral Shoulders 11/2020 FINDINGS: RIGHT SHOULDER: Small acromioclavicular marginal osteophytes. Small lateral subacromial spurs. No glenohumeral joint space narrowing or marginal osteophytes. No osseous erosion. No fracture or dislocation. Small calcification associated with the distal infraspinatus tendon measuring 0.3 and 0.2 cm, consistent with calcific tendinitis. LEFT SHOULDER: Small acromioclavicular and glenohumeral marginal osteophytes. No osseous erosion. No fracture or dislocation. No abnormal soft tissue calcification. IMPRESSION: Right Shoulder: Mild acromioclavicular osteoarthritis. Distal infraspinatus calcific tendinitis. Left Shoulder: Mild acromioclavicular and glenohumeral osteoarthritis. Assessment & Plan Assessment & Plan (1) Polyarticular osteoarthritis: Code(s): M15.9 - Polyosteoarthritis, unspecified Category: Medical Plan: #Polyarticular OA Patient is a 74-year-old female with polyarticular osteoarthritis here today for follow up. Patient is actually doing pretty well today no knee tenderness to palpation, good range of motion in the shoulders with no tenderness to palpation of the AC joint. No further interventions today, we will continue her pregabalin Plan - Continue pregabalin 100mg bid - RTC 6 months Plan I spent 20 minutes reviewing the record and labs, taking a history, examining the patient, discussing the treatment plan, ordering diagnostic work up and documenting in the medical record Medications: Refilled pregabalin (Lyrica) 100 mg PO BID 180 caps 2RF 90 days M19.041 - Primary osteoarthritis, right hand, M19.042 - Primary osteoarthritis, left hand Discontinued codeine-guaifenesin 10-100 mg/5 mL Discontinued Reason: Doctor's Order 5 mL PO Q6H PRN 60 mL 0RF cough Coding Level of Care Code Est Pt Level 3 (91980) Diagnoses Polyarticular osteoarthritis M15.9
[2025-03-15 12:52] VITALS: BP 102/70; PULSE 67; O2SAT 97
--- OUTSIDE RECORDS SUMMARY | 2025-03-15 14:33 | XMS_ITS | Encounter Summary ---
Author Organization [employer] Address [address] [place] [address] Care Team Providers Care Warp Knitter Name Role Phone Abelino Montenegro MD Primary Care Provide r Reason for Visit * Reason Comments Med Refill Encounter Details Date Type Department Care Team ([facility] st Contact Info) Description 04/26/2023 Refill [facility] MEDICINE [address] [place], [place] [phone] Abelino Montenegro MD [address] [place], [place] [phone] Social History Tobacco Use Types Packs/Day Years [...] documented as of this encounter Care Teams Warp Knitter Relationship Specialty Start Date End Date Abelino Montenegro MD [address] [place] [address] PCP - General Internal Medicine 03/10/21 documented as of this encounter
--- OUTSIDE RECORDS SUMMARY | 2025-03-15 14:33 | XMS_ITS | Encounter Summary ---
Author Organization [employer] Address [address] [facility] [address] [place] [address] Care Team Providers Care State Farm Agent Name Role Phone Abelino Montenegro MD Primary Care Provide r Reason for Visit * Reason Comments Med Refill Encounter Details Date Type Department Care Team ([facility] st Contact Info) Description 04/05/2023 Refill [facility] MEDICINE [address] [place], [place] [phone] Abelino Montenegro MD [address] [place], [place] [phone] Social History Tobacco Use Types Packs/Day Years [...] documented as of this encounter Care Teams State Farm Agent Relationship Specialty Start Date End Date Abelino Montenegro MD [address] [place] [address] PCP - General Internal Medicine 03/10/21 documented as of this encounter
--- OUTSIDE RECORDS SUMMARY | 2025-03-15 14:33 | XMS_ITS | Encounter Summary ---
Author Organization [employer] Address [address] [place] [address] Care Team Providers Care Psychiatry Physician Name Role Phone Abelino Montenegro MD Primary Care Provide r Reason for Visit * Reason Comments Med Refill Encounter Details Date Type Department Care Team ([facility] st Contact Info) Description 06/14/2023 Refill [facility] MEDICINE [address] [place], [place] [phone] Abelino Montenegro MD [address] [place], [place] [phone] Mild intermittent asthma without complication Social History [...] documented as of this encounter Care Teams Psychiatry Physician Relationship Specialty Start Date End Date Abelino Montenegro MD [address] [place] [address] PCP - General Internal Medicine 03/10/21 documented as of this encounter
--- OUTSIDE RECORDS SUMMARY | 2025-03-15 14:33 | XMS_ITS | Clinical Summary ---
Author Organization [employer] Address [address] [facility] [address] [place] [address] Care Team Providers Care Log Preparer Name Role Phone Abelino Montenegro MD Primary Care Provide r Allergies Active Allergy Reactions Criticality Noted Date Comments Lisinopril Angioedema Medium 10/30/2024 lip Medications sucralfate (Carafate) 1 g tablet Take [...] FOR DIZZINESS 30 tablet 05/25/19 24 Active lidocaine (Lidoderm) 5 % patch APPLY 1 PATCH TOPICALLY LEAVE ON FOR UP TO 12 HOURS 30 patch 11 11/03/19 24 Active FreeStyle lancetsIndicatio ns:Type 2 diabetes mellitus without complication, without long-term current use of insulin ([facility]) 1 each by Other route every 12 (twelve) hours. 100 each 12 11/03/19 24 Active insulin pen needle (B-D ULTRAFINE III SHORT PEN) 31G X 8 [facility] USE DIRECTED FOUR TIMES A DAY (BULK) 100 each 11 11/09/19 24 Active LORazepam (Ativan) 1 MG tablet TAKE ONE TABLET ONE HOUR BEFORE THE PROCEDURE. 07/06/19 24 Active oxybutynin XL (Ditropan-XL) 10 MG 24 hr tablet TAKE 1 TABLET BY MOUTH EVERYDAY AT NOON Active Viberzi 75 MG tablet 08/22/19 24 Active Trulicity 1.5 MG/0.5ML solution pen-injector INJECT 0.5ML SUBCUTANEOUSLY ONCE WEEKLY IN THE ABDOMEN, THIGH, OR UPPER ARM; ROTATING INJECTION SITES (BULK) 2 mL 3 12/08/19 24 Active dextran 70-hypromellose PF (artificial tears) 0.1-0.3 % ophthalmic solutionIndicati ons:Dry eye Administer 1 drop into both eyes if needed in the morning, at noon, and at bedtime for dry eyes. 1 each 3 05/15/19 25 Active albuterol (2.5 MG/3ML) 0.083% nebulizer solutionIndicati ons:Mild intermittent asthma without complication INHALE 1 VIAL VIA NEBULIZER FRANCINE VECES AL FREDIS 90 mL 3 06/19/19 25 Active calamine lotion APPLY TOPICALLY IF NEEDED FOR ITCHING. 118 mL 06/19/19 25 Active diphenhydrAMINE (BENADryl) 25 MG tabletIndication s:Urticarial rash TAKE 1 CAPSULE BY MOUTH EVERY 8 HOURS IF NEEDED FOR ITCHING OR ALLERGIES 30 tablet 1 06/19/19 25 Active triamcinolone (Kenalog) 0.1 % creamIndications :Dermatitis APPLY TOPICALLY IF NEEDED IN THE MORNING AND AT BEDTIME (PAIN AND SWELLING). 30 g 2 07/03/19 25 Active loratadine (Claritin) 10 MG tabletIndication s:Seasonal allergies TOME 1 TABLETA POR VIA ORAL TODOS LOS BOYD EN LA MANANA 90 tablet 1 07/03/19 25 Active calcium carbonate 1500 (600 Ca) MG tabletIndication s:Type 2 diabetes mellitus without complication, without long-term current use of insulin ([facility]) TOME 1 TABLETA POR VIA ORAL DOS VECES AL FREDIS 180 tablet 1 08/14/19 25 Active glucose blood (FREESTYLE LITE) test stripIndications :Type 2 diabetes mellitus without complication, without long-term current use of insulin ([facility]),Mild intermittent asthma without complication USE TO TEST BLOOD SUGAR THREE TO FOUR TIMES A DAY (BULK) 100 strip 11 09/12/19 25 Active Synjardy 12.5-1000 MGIndications:Ty pe 2 diabetes mellitus without complication, with long-term current use of insulin ([facility]) TOME 1 TABLETA POR VIA ORAL DOS VECES AL FREDIS 180 tablet 3 10/12/19 25 Active Dulaglutide (Trulicity) 1.5 MG/0.5ML solution auto-injector Inject 1.5 mg under the skin 1 (one) time per week. 6 mL 2 10/12/19 25 Active acetaminophen (Tylenol 8 Hour) 650 MG ER tablet TAKE ONE TABLET BY MOUTH EVERY 8 HOURS NEEDED FOR PAIN (VIAL) 60 tablet 1 11/02/19 25 Active amLODIPine (Norvasc) 5 MG tabletIndication s:Essential hypertension TOME 1 TABLETA POR VIA ORAL TODOS LOS BOYD 90 tablet 1 12/11/19 25 Active pregabalin (Lyrica) 100 MG capsule TAKE ONE CAPSULE BY MOUTH TWICE A DAY 60 capsule 12/12/19 25 Active Diclofenac Sodium 1 % gelIndications:A cute midline low back pain without sciatica Apply to back twice daily 100 g 1 12/12/19 25 Active pantoprazole (ProtoNix) 40 MG EC tabletIndication s:Gastroesophage al reflux disease without esophagitis TOME 1 TABLETA POR VIA ORAL TODOS LOS BOYD 90 tablet 12/12/19 25 Active Alcohol Swabs 70 % pads USE FOUR TIMES A DAY 100 each 5 12/15/19 25 Active albuterol 108 (90 Base) MCG/ACT inhalerIndicatio ns:Mild intermittent asthma without complication INHALE 2 PUFFS BY MOUTH FOUR TIMES A DAY 18 g 1 12/20/19 25 Active aspirin (Aspirin Low Dose) 81 MG EC tabletIndication s:Type 2 diabetes mellitus without complication, without long-term current use of insulin ([facility]) TAKE ONE TABLET BY MOUTH EVERY DAY 90 tablet 12/27/19 25 Active montelukast (Singulair) 10 MG tabletIndication s:Seasonal allergies TAKE ONE TABLET BY MOUTH EVERY DAY 90 tablet 12/27/19 25 Active fluticasone (Flovent) 220 MCG/ACT inhalerIndicatio ns:Mild intermittent asthma without complication INHALE 1 PUFF IN THE MORNING AND AT BEDTIME 12 g 11 01/23/20 25 Active diphenoxylate-at ropine (Lomotil) 2.5-0.025 MG tabletIndication s:Diarrhea, unspecified type TAKE 1 TABLET BY MOUTH IF NEEDED IN THE MORNING AND AT BEDTIME FOR DIARRHEA. 10 tablet 01/23/20 25 Active Active Problems Problem Noted Date Diagnosed Date Neck pain 12/11/2024 Assessment & Plan (12/11/2024 1:16 PM EDT): New onset On exam, no swelling no redness No radiation Neuro exam no red flags Declines PT Obtain plain films c-spine Angioedema of lips 10/30/2024 Assessment & Plan (10/30/2024 3:11 PM EDT): Here for an ER follow up, seen yesterday with c/o right sided facial swelling and lip swelling. ER physician felt Lisinopril could have been the culprit. He discontinued it and mentioned that he was going to start her on Amlodipine instead, but patient was already on Amlodipine. Pt today still has some lip swelling, she admits she took lisinopril again yesterday even though she was told not to. Her daughter will take over all of her meds, I discarded the Lisinopril bottles that she had Plan: STOP Lisinopril, continue antihistaminics I instructed her and her daughter to present to the ER if she was to develop difficulty swallowing, breathing or stridor She denies all of that at the moment. She will also call her medical authorization specialist Pt under the care of medical authorization specialist already taking antihistaminics Obesity (BMI 30-39.9) 09/11/2024 Assessment & Plan (09/11/2024 11:26 AM EDT): Patient has been counseled and educated about diet and exercise. Personal goal of weight loss discussedPatient has comorbidity of: DM Diabetic 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 asso ciated with type 2 diabetes mellitus 09/11/2024 Forgetfulness 05/15/2024 Assessment & Plan (09/11/2024 11:25 AM EDT): Pt's family was concerned pt was more forgetful Pt's Mini Mental score 21, mainly because pt was unable to recall 3 objects and substract Last visit referred to Neurology, seen in July records requested Assessment & Plan (05/15/2024 12:25 PM EST): Pt's family concerned pt is more forgetful Pt's Mini Mental score 21, mainly because pt was unable to recall 3 objects and substract Plan: will refer to Neurology Dermatitis 02/14/2024 Assessment & Plan (02/14/2024 1:32 [...] and benadryl PRN px today -refer to power station operator to clarify possible triggers -will hold for [...] X-rays lumbar spine and hips that showed: Ulkm-es-qzkllkab degenerative changes in the bilateral hips. 2. [...] X-rays lumbar spine and hips that showed: Ltws-cl-xtzhichm degenerative changes in the bilateral hips. 2. [...] X-rays lumbar spine and hips that showed: Qxlh-ma-actmhcyc degenerative changes in the bilateral hips. 2. [...] X-rays lumbar spine and hips that showed: Vipd-eq-wtzbcovl degenerative changes in the bilateral hips. 2. [...] to both lower extremities intensity 8/10 Pt refuses PT, has used muscle relaxants [...] Preventative health care 10/05/2022 Assessment & Plan (09/11/2024 11:25 AM EDT): Mammogram: 07/30/2024 Normal Pap Smear: s/p SHERRY and BSO Colonoscopy: Poor prep 09/03/2021 1 year f/u recommended, was due 08/2022 per GI notes. Pt had Cologuard 08/03/2023 NEGATIVE Assessment & Plan (02/14/2024 1:38 PM EDT): [...] diabetes mellitus without complication Assessment & Plan (12/11/2024 1:14 PM EDT): Patient is here for a f/u regarding her diabetes Mellitus Hgb A1c on 12/12/2024: 6.4 from 5.9 DM remains controlled She is on a regimen of: Trulicity 1.5 mg q week, Synjardy 12.09/999 mg po BID She is no longer seeing Endocrinology ( Dr Khalil) he requested we took over her care. Last note on record: 06/24/2021 foot check today risk of zero, Opthalmologic done at [facility] Microalbumin 03/11/2021 was 2.6, currently on ASA daily, will repeat Plan: Continue current regimen Assessment & Plan (09/11/2024 11:33 AM EDT): Patient is here for a f/u regarding her diabetes Mellitus Hgb A1c on 09/11/2024: 5.9 DM remains controlled She is on a regimen of: Trulicity 1.5 mg q week, Synjardy 12.09/999 mg po BID She is no longer seeing Endocrinology ( Dr Khalil) he requested we took over her care. Last note on record: 06/24/2021 foot check today risk of zero, Opthalmologic done at [facility] 2 months ago. Microalbumin 03/11/2021 was 2.6, currently on ASA daily, will repeat Plan: Continue current regimen Assessment & Plan (05/15/2024 12:13 PM EST): [...] daily Benign hypertension 10/14/2011 Assessment & Plan (12/11/2024 12:59 PM EDT): Patient is here for a f/u BP currently controlled on a regimen of: Amlodipine 5 mg po daily Given adequate blood pressure control will continue with current medical regimen. Most recent electrolytes, Bun and Creatinine done on: Lab Results Component Value Date NA 141 10/29/2024 NA 140 10/20/2024 K 3.9 10/29/2024 K 4.0 10/20/2024 CL 107 10/29/2024 CL 102 10/20/2024 BUN 13 10/29/2024 BUN 18 (H) 10/20/2024 CREATININE 0.55 10/29/2024 CREATININE 0.66 10/20/2024 were wnl. patient advised to adhere to a low sodium diet, encouraged about medication compliance, counseled about weight loss Assessment & Plan (10/30/2024 10:52 AM EDT): Patient is here for a f/u BP currently controlled on a regimen of: Amlodipine 5 mg po daily Given adequate blood pressure control will continue with current medical regimen. Most recent electrolytes, Bun and Creatinine done on: Lab Results Component Value Date NA 141 10/29/2024 NA 140 10/20/2024 K 3.9 10/29/2024 K 4.0 10/20/2024 CL 107 10/29/2024 CL 102 10/20/2024 BUN 13 10/29/2024 BUN 18 (H) 10/20/2024 CREATININE 0.55 10/29/2024 CREATININE 0.66 10/20/2024 were wnl. patient advised to adhere to a low sodium diet, encouraged about medication compliance, counseled about weight loss Assessment & Plan (09/11/2024 11:22 AM EDT): Patient is here for a f/u BP currently controlled on a regimen of: Amlodipine 5 mg po daily and Lisinopril 30 mg po daily Given adequate blood pressure control will continue with current medical regimen. Most recent electrolytes, Bun and Creatinine done on: Lab Results Component Value Date NA 140 12/14/2023 NA 144 10/13/2023 K 4.0 12/14/2023 K 4.3 10/13/2023 CL 104 12/14/2023 CL 106 10/13/2023 BUN 11 12/14/2023 BUN 10 10/13/2023 CREATININE 0.69 12/14/2023 CREATININE 0.64 10/13/2023 were wnl. Will repeat patient advised to adhere to a low sodium diet, encouraged about medication compliance, counseled about weight loss Assessment & Plan (02/14/2024 1:26 PM EDT): [...] EGD 04/04/2023 Hypercholesterolemia 05/09/1958 Assessment & Plan (12/11/2024 1:15 PM EDT): Here for a f/u Patient with elevated lipids. Most recent lipid profile from: Lab Results Component Value Date TRIG 72 04/13/2022 04/13/2022 shows a total cholesterol of: 138 [...] goal for weight loss. Assessment & Plan (10/05/2022 10:03 AM EDT): [...] Problem Noted Date Diagnosed Date Resolved Date Acute cough 05/15/2024 09/11/2024 Assessment & Plan (05/15/2024 12:55 PM EST): Pt with c/o persistent dry cough that is not going away Exam within normal limits, lungs CTA B Rapid covid and flu: negative Plan: supportive measures, guaifenesin PRN, Plain film of chest Follow up if cough becomes productive or she develops fever, sob or any other symptoms Left lower quadrant abdominal pain 06/29/2022 09/01/2022 [...] Encounters Date Type Department Care Team Description 01/28/2025 Telephone [facility] [address] [facility] [place] [address] Abelino Montenegro MD Appointment Request; Call Back Request 01/22/2025 Refill [facility] [address] [facility] [place] [address] Abelino Montenegro MD Mild intermittent asthma without complication; Diarrhea, unspecified type 01/22/2025 Refill [facility] [address] [facility] [place] [address] Shawna Browning ANP Diarrhea, unspecified type 12/26/2024 Refill [facility] [address] [facility] [place] [address] Abelino Montenegro MD Type 2 diabetes mellitus without complication, without long-term current use of insulin ([facility]); Seasonal allergies 12/19/2024 Refill [facility] [address] [facility] [place] [address] Abelino Montenegro MD Mild intermittent asthma without complication 12/14/2024 Refill [facility] [address] [facility] [place] [address] Abelino Montenegro MD from Last 3 Months Immunizations Immunization Administration Dates Next Due Influenza High-dose Quadriva [...] Answer Date Recorded Patient Health Questionnaire-9 Score 18 09/11/2024 Patient Health Questionnaire-9 Score 18 09/11/2024 Last PHQ-9: Questionnaire Data Not on file 0 09/11/2024 Housing Stability Answer Date Recorded What is your housing situation today? I do not have housing (Staying with others, in a hotel, in a mcc, living outside on the street, on a beach, in a car, or in a park 09/11/[address] you li ve. Do you have problems with any of the following? None of the above 09/11/2024 Food Insecurity Answer Date Recorded Within the past 12 months, y ou worried that your food would run out before you got money to buy more: Sometimes True 2024 Within the past 12 months,th e food you bought just didn't last and you didn't have enough money to get more: Sometimes True 09/11/2024 Transportation Answer Date Recorded In the past [...] Answer Date Recorded Patient Health Questionnaire-2 Score 5 09/11/2024 Internet Access Answer Date Recorded Internet Access [...] Sign Reading Time Taken Comments Blood Pressure 124/82 12/11/2024 12:58 PM EDT Pulse 77 12/11/2024 12:58 PM EDT Temperature 36.4 C (97.5 F) 12/11/2024 12:58 PM EDT Respiratory Rate 20 12/11/2024 12:5 8 PM EDT Oxygen Saturation 97% 12/11/2024 12: 58 PM EDT Inhaled Oxygen Concentration - - Weight 73.8 kg (162 lb 12.8 oz) 025 12:58 PM EDT Height 157.5 cm (5' 2 ) 12/11/2024 12:5 8 PM EDT Body Mass Index 29.78 12/11/2024 12:58 PM EDT Plan of Treatment Health Maintenance Due Date Last Done Comments CT Colonography 1950 FIT 1950 Sigmoidoscopy 1950 Diabetes: Foot Exam 1961 Eye Exam 1961 Hepatitis A Vaccines (1 of 2 - Risk 2-dose series) 1970 Hepatitis B Vaccines (1 of 3 - Risk 3-dose series) 2011 RSV Patients and Patients Aged 60 years or older (1 - Risk 60-74 years 1-dose series) 2011 FOBT 07/26/2024 07/27/2023, 05/21/2019 SDOH Screening 11/02/2024 11/03/2023 COVID-19 Vaccine ( season) 2025 02/14/2024, 02/22/2023, 10/27/2021, Additional history exists Influenza Vaccine (#1) 2025 , 01/13/2023, 02/26/2022, Additional history exists Depression Monitoring 03/14/2025 09/11/2024, 025 Alcohol/Substance Use Screening 05/15/2025 05/15/2024 Diabetes: Hemoglobin A1C 06/13/2025 025, 09/11/2024, 05/15/2024, Additional history exists Mammogram 07/30/2025 07/30/2024, 07/07, 07/15/2022, Additional history exists Tobacco Screening 12/11/2025 12/11/2024 Diabetes: Urine Protein Screening 12/13/2025 12/13/2024, 03/11/2021 Lipid Panel 12/13/2025 12/13/2024, 12/0 10/2021, 03/11/2021 FIT DNA/Cologuard 07/26/2026 07/27/2023, 05/21/2019 DTaP/Tdap/Td Vaccines (2 - Td or Tdap) 10/04/2030 10/04/2020, 08/09/2006 Colonoscopy 09/04/2031 09/03/2021 Colorectal Cancer Screening 09/04/2031 Zoster Vaccines Completed 06/15/2021, 03/31/2021 Pneumococcal Vaccine: 50+ Years Completed 03/22/2022, 04/18/2019, 12/26/2013, Additional history exists Hepatitis C Screening Completed 02/21/2024, 022 HIB Vaccines Aged Out No longer eligi ble based on patient's age to complete this topic HPV Vaccines Aged Out No longer eligi ble based on patient's age to complete this topic IPV Vaccines Aged Out No longer eligi ble based on patient's age to complete this topic Meningococcal B Vaccine Aged Out No l onger eligible based on patient's age to complete [...] Procedure Name Priority Date/Time Associated Diagnosis Comments LIPID PANEL, STANDARD Routine 12/13/2024 8:31 AM EDT Hypercholesterolemia ALBUMIN, RANDOM URINE W/CREATININE Routine 12/13/2024 8:31 AM EDT Type 2 diabetes mellitus without complication, without long-term current use of insulin (CMS/HCC) COMPREHENSIVE METABOLIC PANEL Routine 12/13/2024 8:31 AM EDT Benign hypertension POCT GLYCATED HEMOGLOBIN, TOTAL Routine 12/11/2024 1:10 PM EDT Type 2 diabetes mellitus without complication, without long-term current use of insulin (CMS/HCC) BI MAMMOGRAM SCREENING TOMOSYNTHESIS BILATERAL Routine 07/30/2024 10:30 AM EDT HEPATITIS C AB W/REFL TO HCV RNA, QN, PCR Routine 02/21/2024 8:25 AM EDT POST (nonalcoholic steatohepatitis) HM COLONOSCOPY Routine 09/03/2021 8:02 AM EDT from Last 3 Months or Most Recently Relevant to Health Maintenance Results * Albumin, Random Urine W/Creatinine (12/13/2024 8:31 AM EDT) Creatinine, Urine 77.42 mg/dL [facility] Microalbumin Urine 16.0 mg/L [facility] Microalbum Creatinine Ratio Ur 20.6 <30 ug/mg cr [facility] Comment:Albumin/Creatinine R atio Reference Ranges: Normal: < 30 ug/mg creatinine Microalbuminuria: 30 - 300 ug/mg creatinineClinical Albuminuria: > 300 ug/mg creatinine Urine (Urine, Random) 12/13/2024 8:31 AM EDT 12/13/2024 11:28 AM EDT Abelino Whitfield MD LAB URINE ORDERABLES Final Result Performing Organization Address [facility] Co de Phone Number [facility] [address] [place] [address] [phone] * Lipid Panel, Standard (12/13/2024 8:31 AM EDT) Triglycerides 95 <150 mg/dL [facility] Comment:Desirable Triglyceri de: less than 150 mg/dLBorderline High Triglyceride 150-199 mg/dLHigh Triglyceride: 200-499 mg/dLVery High Triglyceride: greater than or equal to 5OO mg/dL Cholesterol 146 <200 mg/dL [facility] Comment:Desirable Cholestero l: less than 200 mg/dLBorderline High Cholesterol: 200-239 mg/dLHigh Cholesterol: greater than 239 mg/dL LDL Cholesterol Calculated 73 <100 mg/dL [facility] Comment:Desirable LDL: less than 100 mg/dLNear Optimal/Above Optimal LDL: 110- 129 mg/dLBorderline High LDL: 130-159 mg/dLHigh LDL: 160-189 mg/dLVery High LDL: greater than or equal to 190 mg/dL HDL Cholesterol 54 >40 mg/dL [facility] Comment:Desirable HDL: great er than 40 mg/dL Note: This HDL assay may give artificially low results in patients with liver disease. Blood Venous blood specimen / Unknown 12/13/2024 8:31 AM EDT 12/13/2024 11:29 AM EDT us Abelino Whitfield MD LAB BLOOD ORDERABLES Final Result Performing Organization Address City/[facility]/ZIP Co de Phone Number [facility] [address] [place] [address] [phone] * (ABNORMAL) Comprehensive Metabolic Panel (12/13/2024 8:31 AM EDT) Sodium 141 135 - 145 mmol/L [facility] Potassium 4.1 3.3 - 5.1 mmol/L [facility] Chloride 104 96 - 108 mmol/L [facility] Carbon Dioxide 30(H) 22 - 29 mmol/L [facility] Anion Gap 11(L) 12 - 20 [facility] Urea Nitrogen (BUN) 15 9 - 16 mg/dL [facility] Creatinine, Serum 0.56 0.5 - 1.4 mg/dL [facility] Estimated Glomerular Filt Rate >60 [facility] Comment:Chronic Kidney Disea se: Estimated GFR < 60 mL/min/[id number] Kidney Disease: Estimated GFR < 15 mL/min/1.73m2 Glucose 101 60 - 115 mg/dL [facility] Calcium 9.3 8.4 - 10.2 mg/dL [facility] Bilirubin, Total 0.4 0.0 - 1.0 mg/dL [facility] Aspartate Amino Transferase 55(H) 5 - 31 U/L [facility] Alanine Aminotransferase 63(H) 0 - 31 U/L [facility] Total Protein 7.7 6.5 - 8.0 g/dL [facility] Albumin Level 4.2 3.5 - 5.0 g/dL [facility] Alkaline Phosphatase 78 39 - 117 U/L [facility] Blood Venous blood specimen / Unknown 12/13/2024 8:31 AM EDT 12/13/2024 11:29 AM EDT us Abelino Whitfield MD LAB BLOOD ORDERABLES Final Result [facility] [address] [place] [phone] [phone] * (ABNORMAL) POCT HGB A1C (12/11/2024 1:10 PM EDT) Hemoglobin A1C 6.4(A) 4.0 - 5.7 % QC Media Lot # [id number] Lot# Expiration Date Blood 12/11/2024 1:10 PM EDT Abelino Whitfield MD POINT OF CARE TEST EN TER/EDIT ORDERABLES Final Result * BI Mammogram Screening Tomosynthesis Bilateral (07/30/2024 10:30 AM EDT) Anatomical Region Laterality Modality Breast Bilateral Mammography 07/30/2024 10:3 0 AM EDT Narrative 08/05/2024 8:20 PM EDT [facility] [address] [place], [place] [address] Mammography Report Signed Patient: Mercedes Foley MR#: [id number] : 1950 Acct:[id number] Age/Sex: 74 / F ADM Date: 07/30/24 Loc: JOSEO Attending Dr: Abelino Maddox MD Ordering Physician: Abelino Maddox MD Resu lts: 1Negative Date of Service: 07/30/24 Follow Up: 1 Year From [facility] Mammogram Procedure(s): MM tomosynthesis screening BI Accession Number(s): [id number] cc: Abelino Maddox MD EXAMINATION: MM SCREENING [...] Deanna Alfredo DO 08/05/2024 08:17 PM EDT RP Dictated By: Deanna Alfredo DO Signed By: <Electronically signed by Deanna Alfredo DO in OV> 08/05/242016 DD/ 1030 TD/TT: 07/30/24 1042 Gasket Inspector: Procedure Note Donotuseinterpreter, Image - 08/05/2024 [facility] [address] [place], [place] [address] Mammography Report Signed Patient: Ronnell Foley#: [id number] : 1950cct:[id number] Age/Sex: 74 / FADM Date: 07/30/24 Loc: MAMMO Attending Dr: Abelino Maddox MD Ordering Physician: Abelino Maddox MDResu lts: 1Negative Date of Service: 07/30/24Follow Up: 1 Year From Orig inal Mammogram Procedure(s): MM tomosynthesis screening BI Accession Number(s): [id number] cc: Abelino Maddox MD EXAMINATION: MM SCREENING [...] Deanna Alfredo DO 08/05/2024 08:17 PM EDT RP Dictated By: Deanna Alfredo DO Signed By: <Electronically signed by Deanna Alfredo DO in OV> 08/05/242016 DD/ 1030 TD/TT: 07/30/24 1042 Gasket Inspector: Abelino Whitfield MD IMG BI PROCEDURES Kareem jayashree Result - Final * Hepatitis C Antibody with Reflex to HCV, RNA, Quantitative, Real-Time PCR (02/21/2024 8:25 AM EDT) Hepatitis C Antibody Nonreactive Nonreactive [facility] Comment:Antibodies to HCV no t detected; does not exclude early acuteHCV infection. Blood Venous blood specimen / Unknown 02/21/2024 8:25 AM EDT 02/21/2024 11:11 AM EDT Abelino Whitfield MD LAB BLOOD ORDERABLES Final Result [facility] [address] [place] [phone] * Hm Colonoscopy (09/03/2021 8:02 AM EDT) Historical Provider HEALTH MAINTENANCE Final Result from Last 3 Months or Most Recently Relevant to Health Maintenance Insurance [facility] [employer] (HMO D-SNP) [place] [id number] Care Teams Log Preparer Relationship Specialty Start Date End Date Abelino Montenegro MD [address] [place] [address] PCP - General Internal Medicine 03/10/21
--- OUTSIDE RECORDS SUMMARY | 2025-03-15 14:33 | XMS_ITS | Encounter Summary ---
Author Organization [employer] Address [address] [facility] [address] 7t [place] [address] Care Team Providers Care Air Control Electronics Operator Name Role Phone Abelino Montenegro MD Primary Care Provide r Reason for Visit * Reason Comments Med Refill Encounter Details Date Type Department Care Team ([facility] st Contact Info) Description 03/29/2023 Refill [facility] MED & PEDS [address] [place] [address] Abelino Montenegro MD [address] [place], [place] [phone] Social History Tobacco Use Types Packs/Day Years [...] as of this encounter Care Teams Air Control Electronics Operator Relationship Specialty Start Date End Date Abelino Montenegro MD [address] [place] [address] PCP - General Internal Medicine 03/10/21 documented as of this encounter
--- OUTSIDE RECORDS SUMMARY | 2025-03-15 14:33 | XMS_ITS | Encounter Summary ---
Author Organization [employer] Address [address] [facility] 7t [place] [address] Care Team Providers Care Land Leveler Name Role Phone Abelino Montenegro MD Primary Care Provide r Reason for Visit * Reason Comments Med Refill Encounter Details Date Type Department Care Team ([facility] st Contact Info) Description 03/21/2023 Refill [facility] MEDICINE [address] [place], [place] [phone] Debbie Jaime MD 230 [place], [place] [phone] Gastroesophageal reflux disease without esophagitis Social History [...] documented as of this encounter Care Teams Land Leveler Relationship Specialty Start Date End Date Abelino Montenegro MD [address] [place] [id number] PCP - General Internal Medicine 03/10/21 documented as of this encounter
--- OUTSIDE RECORDS SUMMARY | 2025-03-15 14:33 | XMS_ITS | Encounter Summary ---
Author Organization [employer] Address [address] [facility] 7t [place] [address] Care Team Providers Care Computer Systems Architect Name Role Phone Abelino Montenegro MD Primary Care Provide r Reason for Visit * Reason Comments Med Refill Encounter Details Date Type Department Care Team ([facility] st Contact Info) Description 01/28/[address] [facility] MEDICINE 230 [place] [address] Abelino Montenegro MD 230 [place] [address] Social History Tobacco Use Types Packs/Day Years [...] documented as of this encounter Care Teams Computer Systems Architect Relationship Specialty Start Date End Date Abelino Montenegro MD 230 [place] [address] PCP - General Internal Medicine 03/10/21 documented as of this encounter
--- OUTSIDE RECORDS SUMMARY | 2025-03-15 14:33 | XMS_ITS | Encounter Summary ---
Author Organization [employer] Address [address] [facility] 7t [place] [address] Care Team Providers Care Junior Software Developer Name Role Phone Abelino Montenegro MD Primary Care Provide r Reason for Visit * Reason Comments Med Refill Encounter Details Date Type Department Care Team ([facility] st Contact Info) Description 03/28/2023 Refill [facility] MEDICINE 230 [place], [place] [phone] Abelino Montenegro MD [address] [place], [place] [phone] Social History Tobacco Use Types Packs/Day Years [...] documented as of this encounter Care Teams Junior Software Developer Relationship Specialty Start Date End Date Abelino Montenegro MD [address] [place] [address] PCP - General Internal Medicine 03/10/21 documented as of this encounter
--- OUTSIDE RECORDS SUMMARY | 2025-03-15 14:33 | XMS_ITS | Encounter Summary ---
Author Organization [employer] Address 75 [facility] 7t [place] [address] Care Team Providers Care Sewage Screen Operator Name Role Phone Abelino Montenegro MD Primary Care Provide r Reason for Visit * Reason Comments Med Refill Encounter Details Date Type Department Care Team ([facility] st Contact Info) Description 06/10/2023 Refill [facility] MEDICINE 230 [place], [place] [phone] Abelino Montenegro MD 230 [place], [place] [phone] Social History Tobacco Use Types Packs/Day Years [...] documented as of this encounter Care Teams Sewage Screen Operator Relationship Specialty Start Date End Date Abelino Montenegro MD [address] [place] [address] PCP - General Internal Medicine 03/10/21 documented as of this encounter
--- OUTSIDE RECORDS SUMMARY | 2025-03-15 14:33 | XMS_ITS | Encounter Summary ---
Author Organization [employer] Address 75 [facility] 7t [place] [address] Care Team Providers Care Decision Unit Rn Name Role Phone Abelino Montenegro MD Primary Care Provide r Reason for Visit * Reason Comments Med Refill Encounter Details Date Type Department Care Team ([facility] st Contact Info) Description 04/25/2023 Refill [facility] MEDICINE 230 [place], [place] [phone] Abelino Montenegro MD [address] [place], [place] [phone] Social History Tobacco Use Types Packs/Day Years [...] documented as of this encounter Care Teams Decision Unit Rn Relationship Specialty Start Date End Date Abelino Montenegro MD [address] [place] [address] PCP - General Internal Medicine 03/10/21 documented as of this encounter
--- OUTSIDE RECORDS SUMMARY | 2025-03-15 14:33 | XMS_ITS | Encounter Summary ---
Author Organization [employer] Address [address] [facility] 7t [place] [address] Care Team Providers Care Sail Finisher Machine Name Role Phone Abelino Montenegro MD Primary Care Provide r Reason for Visit * Reason Comments Med Refill Encounter Details Date Type Department Care Team ([facility] st Contact Info) Description 04/14/2023 Refill [facility] MEDICINE [address] [place], [place] [phone] Abelino Montenegro MD [address] [place], [place] [phone] Social History Tobacco Use Types Packs/Day Years [...] documented as of this encounter Care Teams Sail Finisher Machine Relationship Specialty Start Date End Date Abelino Montenegro MD [address] [place] [address] PCP - General Internal Medicine 03/10/21 documented as of this encounter
--- OUTSIDE RECORDS SUMMARY | 2025-03-15 14:33 | XMS_ITS | Encounter Summary ---
Author Organization [employer] Address [address] [facility] 7t [place] [address] Care Team Providers Care Source Inspector Name Role Phone Abelino Montenegro MD Primary Care Provide r Reason for Visit * Reason Comments Med Refill Encounter Details Date Type Department Care Team ([facility] st Contact Info) Description 03/21/2023 Refill [facility] MEDICINE 230 [place], [place] [phone] Abelino Montenegro MD 230 [place], [place] [phone] Benign hypertension Social History Tobacco Use Types [...] documented as of this encounter Care Teams Source Inspector Relationship Specialty Start Date End Date Abeilno Montenegro MD 230 [place] [address] PCP - General Internal Medicine 03/10/21 documented as of this encounter
--- OUTSIDE RECORDS SUMMARY | 2025-03-15 14:33 | XMS_ITS | Encounter Summary ---
Author Organization [employer] Address [address] [facility] 7t [place] [address] Care Team Providers Care Hardwood Sawyer Name Role Phone Abelino Montenegro MD Primary Care Provide r Reason for Visit * Reason Comments Med Refill Encounter Details Date Type Department Care Team ([facility] st Contact Info) Description 02/03/2023 Refill [facility] MEDICINE [address] [place] [address] Abelino Montenegro MD 230 [place] [address] Social History Tobacco Use Types Packs/Day Years [...] documented as of this encounter Care Teams Hardwood Sawyer Relationship Specialty Start Date End Date Abelino Montenegro MD 230 [place] [address] PCP - General Internal Medicine 03/10/21 documented as of this encounter
--- OUTSIDE RECORDS SUMMARY | 2025-03-15 14:33 | XMS_ITS | Encounter Summary ---
Author Organization [employer] Address [address] [facility] 7t [place] [address] Care Team Providers Care Fraud Examiner Name Role Phone Abelino Montenegro MD Primary Care Provide r Reason for Visit * Reason Comments Med Refill Encounter Details Date Type Department Care Team ([facility] st Contact Info) Description 01/20/2023 Refill [facility] MEDICINE 230 [place] [address] Abelino Montenegro MD 230 [place] [address] Social History Tobacco Use Types Packs/Day Years [...] documented as of this encounter Care Teams Fraud Examiner Relationship Specialty Start Date End Date Abelino Montenegro MD [address] [place] [address] PCP - General Internal Medicine 03/10/21 documented as of this encounter
--- OUTSIDE RECORDS SUMMARY | 2025-03-15 14:33 | XMS_ITS | Encounter Summary ---
Author Organization [employer] Address [address] [facility] 7t [place] [address] Care Team Providers Care Mobile Service Rv Technician Name Role Phone Abelino Montenegro MD Primary Care Provide r Reason for Visit * Reason Comments Med Refill Encounter Details Date Type Department Care Team ([facility] st Contact Info) Description 05/23/2023 Refill [facility] MEDICINE [address] [place], [place] [phone] Abelino Montenegro MD 230 [place], [place] [phone] Seasonal allergies; Essential hypertension Social History Tobacco [...] as of this encounter Care Teams Mobile Service Rv Technician Relationship Specialty Start Date End Date Abelino Montenegro MD [address] [place] [address] PCP - General Internal Medicine 03/10/21 documented as of this encounter
--- OUTSIDE RECORDS SUMMARY | 2025-03-15 14:33 | XMS_ITS | Clinical Summary ---
Author Organization [facility] Address [address] [facility] [address] [place] [phone] Phone Care Team Providers Care Instrument And Control Technician Name Role Phone Abelino Maddox MD Primary Care Provide r Allergies Active Allergy Reactions Criticality Noted Date Comments Lisinopril Angioedema Medium 10/30/2024 lip Medications acetaminophen (TYLENOL) 650 MG CR tablet TAKE ONE TABLET BY MOUTH EVERY 8 HOURS NEEDED FOR PAIN (VIAL) 5 Active albuterol 2.5 mg /3 mL (0.083 %) nebulizer solution INHALE 1 VIAL VIA NEBULIZER FRANCINE VECES AL FREDIS 5 Active albuterol 90 mcg/actuation inhaler INHALE 2 PUFFS BY MOUTH FOUR TIMES A DAY 5 Active amLODIPine (NORVASC) 5 MG tablet TOME 1 TABLETA POR VIA ORAL TODOS LOS BOYD 5 Active aspirin 81 MG EC tablet Take 81 mg by mouth daily. 5 Active calcium carbonate (OS-DARIAN) 1,500 mg (600 mg elemental) tablet TOME 1 TABLETA POR VIA ORAL DOS VECES AL FREDIS 5 Active dextran 70-hypromellose, PF, (GENTEAL TEARS MODERATE, PF,) 0.1-0.3 % Dpet 1 drop 3 (three) times a day as needed. 5 Active diclofenac sodium (VOLTAREN) 1 % Gel Apply to back twice daily 5 Active diphenhydrAMINE (BENADRYL) 25 mg tablet TAKE 1 CAPSULE BY MOUTH EVERY 8 HOURS IF NEEDED FOR ITCHING OR ALLERGIES 5 Active diphenoxylate-atr opine (LOMOTIL) 2.5-0.025 mg per tablet TAKE 1 TABLET BY MOUTH IF NEEDED IN THE MORNING AND AT BEDTIME FOR DIARRHEA. 5 Active TRULICITY 1.5 mg/0.5 mL subcutaneous injection Inject 1.5 mg under the skin. 5 Active eluxadoline (VIBERZI) 75 mg tablet 4 Active empagliflozin-met FORMIN (SYNJARDY) 12.5-1,000 mg per tablet TOME 1 TABLETA POR VIA ORAL DOS VECES AL FREDIS 5 Active famotidine (PEPCID) 40 MG tablet Take 40 mg by mouth every evening. 5 Active fluticasone propionate 220 mcg/actuation inhaler INHALE 1 PUFF IN THE MORNING AND AT BEDTIME (BULK) 4 Active levocetirizine (XYZAL) 5 MG tablet TOME 1 TABLETA POR V A ORAL TODOS LOS D CUANDO SEA NECESARIO 5 Active lidocaine (LIDODERM) 5 % APPLY 1 PATCH TOPICALLY LEAVE ON FOR UP TO 12 HOURS 4 Active lisinopril (PRINIVIL,ZESTRIL ) 40 MG tablet TOME 1 TABLETA POR V A ORAL TODOS LOS D FOR 90 DAYS 5 Active loratadine (CLARITIN) 10 mg tablet TOME 1 TABLETA POR VIA ORAL TODOS LOS BOYD [facility] 5 Active montelukast (SINGULAIR) 10 mg tablet Take 10 mg by mouth daily. 5 Active oxyBUTYnin (DITROPAN-XL) 10 MG 24 hr tablet TAKE 1 TABLET BY MOUTH EVERYDAY AT NOON Active pantoprazole (PROTONIX) 40 MG tablet TOME 1 TABLETA POR VIA ORAL TODOS LOS BOYD 5 Active pregabalin (LYRICA) 100 MG capsule Take 100 mg by mouth 2 (two) times a day. 5 Active traZODone (DESYREL) 50 MG tablet TAKE 1-2 TABLETS POR V A ORAL AL ACOSTARSE CUANDO SEA NECESARIO FOR INSOMNIA 5 Active triamcinolone acetonide 0.1 % cream Apply topically 2 (two) times a day as needed. 5 Active venlafaxine (EFFEXOR-XR) 37.5 MG 24 hr capsule TAKE 1 CAPSULE BY MOUTH ONCE A DAY FOR SYMPTOMS OF DEPRESSION/ANX IETY. 5 Active cyclobenzaprine (FLEXERIL) 10 MG tablet Take 10 mg by mouth 3 (three) times a day as needed for muscle spasms. Active rosuvastatin (CRESTOR) 10 MG tablet Take 1 tablet (10 mg total) by mouth daily. 90 tablet 3 5 Active Active Problems Problem Noted Date Diagnosed Date Encounter to establish care 01/22/2025 Cardiac murmur, unspecified 01/22/2025 Assessment & Plan (01/22/2025 1:51 PM EDT): The only real abnormality on the echo was a minimally dilated aortic root at 38 mm we will repeat an echo in a year Pure hypercholesterolemia 01/22/2025 Assessment & Plan (01/22/2025 1:51 PM EDT): Ideally LDL should be less than 70 mg/dL I did go over her diet and we will start Crestor 10 mg daily. I am going to order a lipid panel and an A1c to be done in 4 months time I will see her in 6 months time Carotid artery stenosis 01/22/2025 Assessment & Plan (01/22/2025 1:51 PM EDT): She had a carotid duplex showing mild carotid plaquing bilaterally Encounters Date Type Department Care Team Description 01/22/2025 1:30 PM EDT Office Visit [facility] [address], [address] [place] [address] Virgil Gongora, DO Encounter to establish care (Primary Dx); Cardiac murmur, unspecified; Pure hypercholesterolemia ; Bilateral carotid artery stenosis from Last 3 Months Social History Tobacco Use Types Packs/Day Years Used Date Smoking Tobacco: Never Assessed Education Answer Date Recorded Are you interested in more education? Not on soto e 01/17/2025 Are you concerned about learning? Not on file 01/17/2025 No 01/17/2025 No 01/17/2025 Digital Access Answer Date Recorded No 01/17/2025 No 01/17/2025 Reliable internet access at home? Not on file 01/17/2025 Device with a working camera? Not on file Comments Unknown Sex and Gender Information Value Date Recorded Sex Assigned at Not on file Legal Sex Female 10:29 AM EDT Gender Identity Not on file Sexual Orientation Not on file Last Filed Vital Signs Vital Sign Reading Time Taken Comments Blood Pressure 126/72 01/22/2025 1:29 PM EDT Pulse 69 01/22/2025 1:29 PM EDT Temperature - - Respiratory Rate - - Oxygen Saturation - - Inhaled Oxygen Concentration - - Weight 73.9 kg (163 lb) 01/22/2025 1:29 PM EDT Height 157.5 cm (5' 2 ) 01/22/2025 1:29 PM EDT Body Mass Index 29.81 01/22/2025 1:29 PM EDT Plan of Treatment Upcoming Encounters Date Type Department Care Team (Late st Contact Info) Description 01/22/2025 Procedure Pass [facility] [address] [place] [address] 04/11/2025 11:30 AM EST Appointment Echo Lab [place] [address] [place] [address] Virgil Gongora DO [address] [place] [address] [place] [address] 07/22/2025 10:00 AM EDT Office Visit [facility] [address]rd Floor, [address] [place] [address] Virgil Gongora DO [address] [place] [address] [place] [phone] [email or web address] Health Maintenance Due Date Last Done Comments CREATININE LEVEL 1951 POTASSIUM LEVEL 1951 DEPRESSION SCREENING 1963 SMOKING Hx and SMOKELESS TOBACCO SCREENING 1964 HEPATITIS C SCREENING 1969 COLONOSCOPY 1996 FIT TEST 1996 FOBT 1996 SIGMOIDOSCOPY 1996 VIRTUAL COLONOSCOPY 1996 RSV VACCINE (1 - Risk 50-74 years 1-dose series) 2001 ZOSTER VACCINES (1 of 2) 2001 OSTEOPOROSIS SCREENING INITI AL (ONE-TIME) 2016 PNEUMOCOCCAL VACCINES (50+ years) (2 of 2 - PCV) 04/18/2020 04/18/2019, 12/26/2013, 08/09/2006 MAMMOGRAM 07/15/2024 07/15/2022 INFLUENZA VACCINE (#1) 2024 COVID-19 VACCINE (1 - 2024-2 6 season) 2025 LIPID PANEL 12/13/2025 12/13/2024 COLOGUARD 07/26/2026 07/27/2023 COLORECTAL CANCER SCREENING 07/26/2026 Adult Td,Tdap Booster 10/04/2030 10/04/2020 HEPATITIS A VACCINES Aged Out No long er eligible based on patient's age to complete this topic HIB VACCINES Aged Out No longer eligi ble based on patient's age to complete this topic MENINGOCOCCAL VACCINES (ACWY) Aged Out No longer eligible based on patient's age to complete this topic MENINGOCOCCAL VACCINES (B) Aged Out N o longer eligible based on patient's age to complete this topic Medical Devices Not on file Insurance [facility] MEDICARE PART A & B [facility] MEDICARE REPLACEMENT MEDICARE PART A & B [facility] MEDICARE REPLACEMENT [place] [id number] MEDICARE PART A & B [facility] MEDICARE REPLACEMENT MEDICARE PART A & B [facility] MEDICARE REPLACEMENT MEDICARE PART A & B [facility] MEDICARE REPLACEMENT MEDICARE PART A & B Care Teams Instrument And Control Technician Relationship Specialty Start Date End Date Abelino Maddox MD [address] [place] [address].[address] [place] [phone] PCP - General Internal Medicine 01/22/25 Additional Source Comments The information contained in this document represents components of the legal health record. It is not the complete legal health record.[facility]
--- OUTSIDE RECORDS SUMMARY | 2025-03-15 14:34 | XMS_ITS | Encounter Summary ---
Author Organization [employer] Address 75 [facility] 7t [place] [address] Care Team Providers Care Fire Safety Manager Name Role Phone Abelino Montenegro MD Primary Care Provide r Reason for Visit * Reason Comments Med Refill Encounter Details Date Type Department Care Team ([facility] st Contact Info) Description 11/16/2024 Refill [facility] MEDICINE [address] [place] [address] Abelino Montenegro MD 230 [place] [address] Social History Tobacco Use Types Packs/Day Years [...] with others, in a hotel, in a mcfp, living outside on the street, on a [...] Assessment Noted Time PHQ-9 Depression Total Score: 18 025 12:20 PM EDT documented as of this encounter Care Teams Fire Safety Manager Relationship Specialty Start Date End Date Abelino Montenegro MD [address] [place] [id number] PCP - General Internal Medicine 03/10/21 documented as of this encounter
--- OUTSIDE RECORDS SUMMARY | 2025-03-15 14:34 | XMS_ITS | Encounter Summary ---
Author Organization [employer] Address [address] [facility] [address] 7t [place] [address] Care Team Providers Care Assembling Motor Builder Name Role Phone Abelino Montenegro MD Primary Care Provide r Reason for Visit * Reason Comments Med Refill Encounter Details Date Type Department Care Team ([facility] st Contact Info) Description 02/07/2024 Refill [facility] [address] [place] [address] Abelino Montenegro MD [address] [place], [place] [phone] Social History Tobacco Use Types Packs/Day Years [...] documented as of this encounter Care Teams Assembling Motor Builder Relationship Specialty Start Date End Date Abelino Montenegro MD [address] [place] [address] PCP - General Internal Medicine 03/10/21 documented as of this encounter
--- OUTSIDE RECORDS SUMMARY | 2025-03-15 14:34 | XMS_ITS | Encounter Summary ---
Author Organization [employer] Address [address] [facility] [address]t [place] [address] Care Team Providers Care Weaving Machine Operator Name Role Phone Abelino Montenegro MD Primary Care Provide r Reason for Visit * Reason Comments Med Refill Encounter Details Date Type Department Care Team ([facility] st Contact Info) Description 12/26/2023 Refill [facility] MED & PEDS [address] [place] [address] Abelino Montenegro MD [address] [place] [address] Type 2 diabetes mellitus without complication, without long-term current use of insulin ([facility]) Social History Tobacco Use Types [...] complication, without long-term current use of insulin (HCC) documented in this encounter Additional Health Concerns Assessment Noted Time PHQ-9 Depression Total Score: 4 11/03/19 24 1:09 PM EDT documented as of this encounter Care Teams Weaving Machine Operator Relationship Specialty Start Date End Date Abelino Montenegro MD [address] [place] [phone] PCP - General Internal Medicine 03/10/21 documented as of this encounter
--- OUTSIDE RECORDS SUMMARY | 2025-03-15 14:34 | XMS_ITS | Encounter Summary ---
Author Organization [employer] Address 75 [facility] 7t [place] [address] Care Team Providers Care Rubber Vulcanizing Machine Operator Name Role Phone Abelino Montenegro MD Primary Care Provide r Reason for Visit * Reason Comments Med Refill Encounter Details Date Type Department Care Team ([facility] st Contact Info) Description 10/25/[address] [facility] MEDICINE [address] [place], [place] [phone] Abelino Montenegro MD 230 [place], [place] [phone] Type 2 diabetes mellitus without complication, without long-term current use of insulin ([facility]); Mild intermittent asthma without complication; Benign hypertension [...] without long-term current use of insulin (HCC) Mild intermittent asthma without complication Benign hypertension Essential hypertension, benign documented in this encounter Additional Health Concerns Assessment Noted Time PHQ-9 Depression Total Score: 0 09/02/19 23 11:43 AM EDT documented as of this encounter Care Teams Rubber Vulcanizing Machine Operator Relationship Specialty Start Date End Date Abelino Montenegro MD [address] [place] [address] PCP - General Internal Medicine 03/10/21 documented as of this encounter
--- OUTSIDE RECORDS SUMMARY | 2025-03-15 14:34 | XMS_ITS | Encounter Summary ---
Author Organization [employer] Address [address] [facility] 7t [place] [address] Care Team Providers Care Network Technology Instructor Name Role Phone Abelino Montenegro MD Primary Care Provide r Encounter Details Date Type Department Care Team (Late st Contact Info) Description 06/14/2022 Orders Only [facility] MED & PEDS [address] [place] [address] Viv Barnard LPN Social History Tobacco Use [...] on filedocumented in this encounter Care Teams Network Technology Instructor Relationship Specialty Start Date End Date Abelino Montenegro MD [address] [place] [phone] PCP - General Internal Medicine 03/10/21 documented as of this encounter
--- OUTSIDE RECORDS SUMMARY | 2025-03-15 14:34 | XMS_ITS | Encounter Summary ---
Author Organization [employer] Address [address] [facility] [address] 7t [place] [address] Care Team Providers Care Speech Pathologist Assistant Name Role Phone Abelino Montenegro MD Primary Care Provide r Reason for Visit * Reason Comments Med Refill Encounter Details Date Type Department Care Team ([facility] st Contact Info) Description 01/17/2024 Refill [facility] [address] [place] [address] Abelino Montenegro MD 230 [place], [place] [phone] Social History Tobacco Use Types Packs/Day Years [...] documented as of this encounter Care Teams Speech Pathologist Assistant Relationship Specialty Start Date End Date Abelino Montenegro MD [address] [place] [address] PCP - General Internal Medicine 03/10/21 documented as of this encounter
--- OUTSIDE RECORDS SUMMARY | 2025-03-15 14:34 | XMS_ITS | Encounter Summary ---
Author Organization [employer] Address 75 [facility] 7t [place] [address] Care Team Providers Care Veneer Jointer Offbearer Name Role Phone Abelino Montenegro MD Primary Care Provide r Encounter Details Date Type Department Care Team (Late st Contact Info) Description 06/21/2022 Orders Only [facility] MEDICINE [address] [place], [place] [phone] Zully Hallman LPN Social History Tobacco Use [...] on filedocumented in this encounter Care Teams Veneer Jointer Offbearer Relationship Specialty Start Date End Date Abelino Montenegro MD 230 [place] [address] PCP - General Internal Medicine 03/10/21 documented as of this encounter
--- OUTSIDE RECORDS SUMMARY | 2025-03-15 14:34 | XMS_ITS | Encounter Summary ---
Author Organization [employer] Address 75 [facility] 7t [place] [address] Care Team Providers Care Lease Buyer Name Role Phone Abelino Montenegro MD Primary Care Provide r Reason for Visit * Reason Comments Med Refill Encounter Details Date Type Department Care Team ([facility] st Contact Info) Description 07/26/2023 Refill [facility] 230 [place], [place] [phone] Abelino Montenegro MD 230 [place], [place] [phone] Social History Tobacco Use Types Packs/Day Years [...] documented as of this encounter Care Teams Lease Buyer Relationship Specialty Start Date End Date Abelino Montenegro MD 230 [place] [address] PCP - General Internal Medicine 03/10/21 documented as of this encounter
--- OUTSIDE RECORDS SUMMARY | 2025-03-15 14:34 | XMS_ITS | Encounter Summary ---
Author Organization [employer] Address 75 [facility] 7t [place] [address] Care Team Providers Care Protection Manager Name Role Phone Abelino Montenegro MD Primary Care Provide r Reason for Visit * Reason Comments Med Refill Encounter Details Date Type Department Care Team ([facility] st Contact Info) Description 06/17/2023 Refill [facility] MEDICINE 230 [place], [place] [phone] Abelino Montenegro MD 230 [place], [place] [phone] Social History Tobacco Use Types Packs/Day Years [...] documented as of this encounter Care Teams Protection Manager Relationship Specialty Start Date End Date Abelino Montenegro MD 230 [place] [address] PCP - General Internal Medicine 03/10/21 documented as of this encounter
--- OUTSIDE RECORDS SUMMARY | 2025-03-15 14:34 | XMS_ITS | Encounter Summary ---
Author Organization [employer] Address 75 [facility] 7t [place] [address] Care Team Providers Care Grief Counsellor Name Role Phone Abelino Montenegro MD Primary Care Provide r Reason for Visit * Reason Comments Med Refill Encounter Details Date Type Department Care Team ([facility] st Contact Info) Description 12/25/2022 Refill [facility] 230 [place], [place] [phone] Abelino Montenegro MD 230 [place], [place] [phone] Social History Tobacco Use Types Packs/Day Years [...] documented as of this encounter Care Teams Grief Counsellor Relationship Specialty Start Date End Date Abelino Montenegro MD [address] [place] [address] PCP - General Internal Medicine 03/10/21 documented as of this encounter
--- OUTSIDE RECORDS SUMMARY | 2025-03-15 14:34 | XMS_ITS | Encounter Summary ---
Author Organization [employer] Address 75 [facility] 7t [place] [address] Care Team Providers Care Vocational Instructor Name Role Phone Abelino Montenegro MD Primary Care Provide r Reason for Visit * Reason Comments Med Refill Encounter Details Date Type Department Care Team ([facility] st Contact Info) Description 03/04/[address] [facility] MEDICINE 230 [place], [place] [phone] Abelino Montenegro MD 230 [place], [place] [phone] Social History Tobacco Use Types Packs/Day Years [...] documented as of this encounter Care Teams Vocational Instructor Relationship Specialty Start Date End Date Abelino Montenegro MD 230 [place] [address] PCP - General Internal Medicine 03/10/21 documented as of this encounter
--- OUTSIDE RECORDS SUMMARY | 2025-03-15 14:34 | XMS_ITS | Encounter Summary ---
Author Organization [employer] Address 75 [facility] 7t [place] [address] Care Team Providers Care Cooking Teacher Name Role Phone Abelino Montenegro MD Primary Care Provide r Reason for Visit * Reason Onset Date Comments Med Refill 03/11/2023 Encounter Details Date Type Department Care Team (Late st Contact Info) Description 03/11/2023 Telephone [facility] MEDICINE 230 [place], [place] [phone] Abelino Montenegro MD [address] [place], [place] [phone] Med Refill Social History Tobacco Use Types [...] EDT Medication was sent on 02/17/23 to [facility] for refill. * Telephone Encounter - Chauncey Whitfield - 03/11/2023 11:19 AM EDT Tc concetta Woodson at [facility] requesting a new script for pregabalin (Lyrica) 100 MG capsulee. documented in this encounter Plan of Treatment Not on file documented as of this encounter Visit Diagnoses Not on filedocumented in this encounter Additional Health Concerns Assessment Noted Time PHQ-9 Depression Total Score: 0 09/02/19 11:43 AM EDT documented as of this encounter Care Teams Cooking Teacher Relationship Specialty Start Date End Date Abelino Montenegro MD [address] [place] [address] PCP - General Internal Medicine 03/10/21 documented as of this encounter
--- OUTSIDE RECORDS SUMMARY | 2025-03-15 14:34 | XMS_ITS | Encounter Summary ---
Author Organization [employer] Address [address] [facility] [address] 7t [place] [address] Care Team Providers Care Flat Locker Name Role Phone Abelino Montenegro MD Primary Care Provide r Reason for Visit * Reason Comments Med Refill Encounter Details Date Type Department Care Team ([facility] st Contact Info) Description 01/18/2024 Refill [facility]S [address] [place] [address] Abelino Montenegro MD 230 [place], [place] [phone] Social History Tobacco Use Types Packs/Day Years [...] documented as of this encounter Care Teams Flat Locker Relationship Specialty Start Date End Date Abelino Montenegro MD 230 [place] [address] PCP - General Internal Medicine 03/10/21 documented as of this encounter
--- OUTSIDE RECORDS SUMMARY | 2025-03-15 14:34 | XMS_ITS | Encounter Summary ---
Author Organization [employer] Address 75 [facility] 7t [place] [address] Care Team Providers Care Ultrasound Technologist Name Role Phone Abelino Montenegro MD Primary Care Provide r Reason for Visit * Reason Comments Med Refill Encounter Details Date Type Department Care Team ([facility] st Contact Info) Description 01/01/2023 Refill [facility] MEDICINE 230 [place], [place] [phone] Abelino Montenegro MD 230 [place], [place] [phone] Benign hypertension Social History Tobacco Use Types [...] documented as of this encounter Care Teams Ultrasound Technologist Relationship Specialty Start Date End Date Abelino Montenegro MD 230 [place] [address] PCP - General Internal Medicine 03/10/21 documented as of this encounter
--- OUTSIDE RECORDS SUMMARY | 2025-03-15 14:34 | XMS_ITS | Encounter Summary ---
Author Organization [employer] Address [address] [facility] [address] 7t [place] [address] Care Team Providers Care Family And Consumer Education Teacher Name Role Phone Abelino Montenegro MD Primary Care Provide r Reason for Visit * Reason Comments Med Refill Encounter Details Date Type Department Care Team ([facility] st Contact Info) Description 09/14/2023 Refill [facility] MED & PEDS [address] [place] [address] Abelino Montenegro MD 230 [place], [place] [phone] Social History Tobacco Use Types Packs/Day Years Used Date Smoking Tobacco: Never Passive Smoke Exposure: Never Smokeless Tobacco: Never Alcohol Use Standard Drinks/Week Comments Never 0 (1 standard drink = 0.6 oz pur e alcohol) Depression Answer Date Recorded Patient Health Questionnaire-9 Score 0 09/01/2022 Housing Stability Answer Date Recorded What is your housing situation today? I have felice margi 02/21/[address] you li [...] documented as of this encounter Care Teams Family And Consumer Education Teacher Relationship Specialty Start Date End Date Abelino Montenegro MD [address] [place] [address] PCP - General Internal Medicine 03/10/21 documented as of this encounter
--- OUTSIDE RECORDS SUMMARY | 2025-03-15 14:34 | XMS_ITS | Encounter Summary ---
Author Organization [employer] Address 75 [facility] 7t [place] [address] Care Team Providers Care Hem Marker Name Role Phone Abelino Montenegro MD Primary Care Provide r Reason for Visit * Reason Onset Date Comments Med Refill 02/18/2023 Encounter Details Date Type Department Care Team (Late st Contact Info) Description 02/18/2023 Refill [facility] MEDICINE 230 [place] [address] Abelino Montenegro MD 230 [place] [address] Type 2 diabetes mellitus without complication, with long-term current use of insulin ([facility]) Social History Tobacco Use [...] complication, with long-term current use of insulin (HCC) documented in this encounter Additional Health Concerns Assessment Noted Time PHQ-9 Depression Total Score: 0 09/02/19 23 11:43 AM EDT documented as of this encounter Care Teams Hem Marker Relationship Specialty Start Date End Date Abelino Montenegro MD [address] [place] [address] PCP - General Internal Medicine 03/10/21 documented as of this encounter
--- OUTSIDE RECORDS SUMMARY | 2025-03-15 14:34 | XMS_ITS | Data Portability ---
Author Organization [employer] Address [address] [place] [address] Care Team Providers Care Family Helper Name Role Phone HIM CCA OTHER Unavailable OTHER Assessment Encounter Date Assessment Date Assessment LastModified by Organization Details LastModified Time 09/23/2021 09/23/2021 I have reviewed and agree with the assessment and plan as documented by the integration specialist. I provided real-time medical direction for this [...] conducted with the use of professional medical collector. REQUEST THAT CARE TEAM ATTEMPT TO ESTABLISH [...] resolution. If persists, would rec derm referral. [email or web address] Not available 01/12/2024 19:09:28 01/19/2024 01/19/2024 I provided real -time medical direction via phone for this encounter, and was available for additional phone based assistance as needed. I have reviewed and agree with the Assessment and Plan as documented by the Community Center Director. We discussed the diagnostic uncertainty of home [...] to call 911- verbalized understanding of instruction [email or web address] Not available 01/19/2024 15:13:59 Plan of Treatment Reminders Order Date Submit Date Provider Last Modified By Organization Details Last Modified Time Details Appointments None recorded. Lab glucose, fingerstick , blood 2023 024 [email or web address] 0 [facility], [address] [place] [address], [phone] 4 23:29:05 BMP, serum or plasma 2023 024 [email or web address] 0 [facility], [address] [place] [address], [phone] 4 23:29:03 Referral None recorded. Procedures None recorded. Surgeries None recorded. Imaging None recorded. Medication Orders ketorolac 30 mg/mL injection solution 2023 024 [email or web address] 0 [facility] #[id number], [address] [place], [address], 4 23:29:03 clobetasol 0.05 % topical ointment 2023 024 [facility] #[id number], [address] [place], [address], 4 17:58:36 Patient TargetsNo targets recorded. Patient InstructionsNo instructions recorded. Reason for Referral None Reported. Results Created Date Observation Date Name Description Value Unit Range Abnormal Flag Note LastModifiedBy Organization Detail LastModifiedTime 01/19/20 24 01/19/2024 gluco se, donya rstic k, blood Blood Glucose: mg/dl 115 Not Available [facility] [address] [place] [address], [phone] 01/19/2024 15:14:35 Result Notes None recorded. Medical [...] Not Available Vitals Date Recorded Body temperature Heart rate Oxygen saturation Oxygen saturation in Arterial blood by Pulse oximetry Respiratory rate Systolic And Diastolic Provider Name and Address Organization Details Last Updated DateTime 2 98 [degF] 92 /min 97 % 97 % 18 /min 111/73 mm[Hg] Not Available Alfred 2 18:51:50 Date Recorded Heart rate Body weight Oxygen saturation Oxygen saturation in Arterial blood by Pulse oximetry Respiratory rate Body temperature Systolic And Diastolic Provider Name and Address Organization Details Last Updated DateTime 4 82 /min 24444.9 04 g 98 % 98 % 16 /min 98.2 [degF] 132/84 mm[Hg] Not Available Alfred 4 16:27:09 Date Recorded Body temperature Respiratory rate Body weight Heart rate Oxygen saturation Oxygen saturation in Arterial blood by Pulse oximetry Systolic And Diastolic Provider Name and Address Organization Details Last Updated DateTime 4 98 [degF] 20 /min 23322.9 04 g 92 /min 96 % 96 % 175/92 mm[Hg] Not Available Alfred 4 14:54:20 Social History None recorded. Functional Status None recorded. Mental Status None recorded. Family History Nothing Reported. Medical History No medical history recorded. Gynecological HistoryNo gynecological history recorded. Obstetrics History GPAL:G 0 P 0 0 0 0 Past Encounters Encounter ID Performer Location Encounter Start Date Encounter Closed Date Diagnosis/Indication Diagnosis SNOMED-CT Code Diagnosis ICD10 Code Diagnosis IMO Codes Diagnosis Note [id number] Yoandy Bates MD Main - [address] [address] 09/23/2021 18:51:47 01/08/2022 15:34:41 Pain in lower limb 18938396 M79.606 Cough 58170977 R05.1 Dizziness 296802577 R42 [id number] MARBIN GREER MD Main - [address] [address] 01/12/2024 16:27:03 01/12/2024 22:17:41 Acute dermatitis 34391693 L30.9 [id number] Shakira Whitmore MD Main - [facility] [address] [place] [address] 01/19/2024 14:54:17 01/20/2024 13:26:27 Pain in bilateral legs 3528639578 2045189 M79.604 M79.605 Likely osteoarthr itis given her history of sameAdvise d patient and daughter that I cannot completely rule out a DVT based on her exam, I have sent a request to her daycare worker to work with the PCP to schedule [...] Recorded Advance Directives Directive None Recorded Payers Insurance Date Sequence Insurance Name Policy Number Policy Wong Covered Member ID Wogn Member ID Guarantor Name 01/12/2024 1 [facility] - DOS PRIOR TO 2022 - DUAL ELIGIBLE (MEDICARE REPLACEMENT/AD VANTAGE - HMO) Mercedes Foley [id number] Mercedes Foley 01/19/2024 1 [facility] - DOS ON OR AFTER 2022 - DUAL ELIGIBLE - HALFWAY OPTIONS AND ONE CARE (MEDICARE REPLACEMENT/AD VANTAGE - HMO) Mercedes Sanches [id number] Mercedes Sanches Notes Date Note Type Note Provider Name and Address Organization Details Recorded Time 09/23/2021 text/html HPI: NKA Pt Hx of hypertension and DM, Hx of TIA now with complaints of: Pt reports dizziness, loss of appetite, ankle/foot edema, nasal congestion. Neg for Covid 09/21 .................. .................. .................. .................. .................. .................. .................. ............... Community Center Director Note: Sent to evaluate pt with poly [...] normal output. Rapid covid test negative. Consulted [facility] who recommended that pt leave legs elevated when pt is at rest and this medic assisted by placing pillow under legs. [facility] recommends pt take APAP TID while symptomatic. Pt stated to [facility] that her symptoms have been slowly improving. [facility] will assist pt with getting urgent visit with PCP, as pt would rather not go to ER. Went over red flags and no further questions or concerns at this time. .................. .................. .................. .................. .................. .................. .................. ............... Disposition: Fulfilled Yoandy Bates MD [address] [place] [address],[address], [place], [address], [facility] 09/23/2021 18:57:08 01/12/2024 text/html HPI: Pt was [...] breath. Reviewed HPI- no further info needed.Hpavladimir OCHOA .................. .................. .................. .................. .................. .................. .................. ............... Community Center Director Note From Son Yusuf: Pt co rash [...] wounds in the area of rash. Afebrile. [facility] contacted and Clobetasol cream called in. Pt advised to follow up with pcp. Pt education on signs indicating the ER. .................. .................. .................. .................. .................. .................. .................. ............... Disposition: Fulfilled MARBIN GREER MD [address] [facility],[address], [place], [address], [facility] 01/12/2024 19:09:36 01/19/2024 text/html ROS as noted in the HPI HPI: Member's daughter/ EC Sharon called into [...] be present to translate as Mercedes is Burkinan speaking. .................. .................. .................. .................. .................. .................. .................. ............... [facility] Nurse Triage Notes (Maday Lindsey): Chief Complaints: Pain PMH: Hypertension, Diabetes, COPD/Asthma Comments: Reviewed HPI- no further info needed.Hpatterson RNPlease review allergies w/ member/unknown. Community Center Director Organization Information for [employer] Legal Name: [employer]. Address: [address] [place] [id number], Goldsmith Apprentice: Tye Okeefe MD CLIA No.: [id number] Community Center Director POC Test Results from [facility] Blood Glucose Measurement (14:40:43) Blood Glucose: 115 mg/dL iSTAT Chem8+ (15:14:18) Na: 140 mEq/L K: 3.7 mEq/L Cl: 99 mEq/L iCa: 1.16 mmol/L TCO2: 28 mmol/L Glu: 116 mg/dL BUN: 11 mg/dL Crea: 0.6 mg/dL Hct: 43 % Hb: 14.6 g/dL A .................. .................. .................. .................. .................. .................. .................. ............... Community Center Director Note From [employer]: Pt found in residence lying supine on couch legs slightly elevated with pillow, CAOX4 Burkinan speaking only. Pt daughter on scene able [...] pain, pedal pulses found, no numbness noted. [facility] contacted and Providers directed to assess pt legs for DVT, no findings noted. [facility] directed providers to perform Daniel test for DVT, [facility] directing providers on how to perform. Test result negative. [facility] advised providers to alert pt of possibility of blood clot that is undetected at this time, [facility] sending note to PCP to assess pt legs with ultrasound. [facility] directed providers to give 1G tylenol PO and to draw labs assessing for kidney function. Labs drawn and provided to [facility], [facility] directing 15 mg Toradol to be administered IM for one time pain dose. Provider went over red flags with pt and directed pt to take home prescribed tylenol as directed per direction of [facility]. Providers alerted pt and daughter to call 911 and be transported to the hospital for any change in leg condition, including cold ble legs or severe localized pain in legs. Providers then left scene. [facility] Lab Orders: glucose, fingerstick, blood: Performed [...] and topical salve. Shakira Whitmore MD [address] [facility],[address], [place], [address], [employer] 01/19/2024 23:29:46 OBGyn Episode No OBEpisode recorded.
--- OUTSIDE RECORDS SUMMARY | 2025-03-15 14:34 | XMS_ITS | Encounter Summary ---
Author Organization [employer] Address 75 [facility] 7t [place] [address] Care Team Providers Care Finish Mender Name Role Phone Abelino Montenegro MD Primary Care Provide r Reason for Visit * Reason Comments Med Refill Encounter Details Date Type Department Care Team ([facility] st Contact Info) Description 12/18/2022 Refill [facility] [address] [place] [address] [facility] [address] [place] [address] Essential hypertension Social History Tobacco Use Types [...] documented as of this encounter Care Teams Finish Mender Relationship Specialty Start Date End Date Abelino Montenegro MD [address] [place] [address] PCP - General Internal Medicine 03/10/21 documented as of this encounter
--- OUTSIDE RECORDS SUMMARY | 2025-03-15 14:34 | XMS_ITS | Encounter Summary ---
Author Organization [employer] Address 75 [facility] 7t [place] [address] Care Team Providers Care Compounding Pharmacy Technician Name Role Phone Abelino Montenegro MD Primary Care Provide r Reason for Visit * Reason Onset Date Comments Med Refill 02/18/2023 Encounter Details Date Type Department Care Team (Late st Contact Info) Description 02/18/2023 Telephone [facility] MEDICINE [address] [place] [address] Abelino Montenegro MD 230 [place], [place] [phone] Med Refill Social History Tobacco Use Types [...] 50 mg tablet to be sent to [facility]/pharmacy #[id number] documented in this encounter Plan of Treatment Not on file documented as of this encounter Visit Diagnoses Not on filedocumented in this encounter Additional Health Concerns Assessment Noted Time PHQ-9 Depression Total Score: 0 09/02/19 23 11:43 AM EDT documented as of this encounter Care Teams Compounding Pharmacy Technician Relationship Specialty Start Date End Date Abelino Montenegro MD [address] [place] [address] PCP - General Internal Medicine 03/10/21 documented as of this encounter
--- OUTSIDE RECORDS SUMMARY | 2025-03-15 14:34 | XMS_ITS | Encounter Summary ---
Author Organization [employer] Address 75 [facility] 7t [place] [address] Care Team Providers Care Experimental Plastics Fabricator Name Role Phone Abelino Montenegro MD Primary Care Provide r Reason for Visit * Reason Comments Med Refill Encounter Details Date Type Department Care Team ([facility] st Contact Info) Description 03/20/2023 Refill [facility] MEDICINE [address] [place], [place] [phone] Abelino Montenegro MD 230 [place], [place] [phone] Acute midline low back pain without sciatica [...] documented as of this encounter Care Teams Experimental Plastics Fabricator Relationship Specialty Start Date End Date Abelino Montenegro MD [address] [place] [address] PCP - General Internal Medicine 03/10/21 documented as of this encounter
--- OUTSIDE RECORDS SUMMARY | 2025-03-15 14:34 | XMS_ITS | Encounter Summary ---
Author Organization [employer] Address 75 [facility] 7t [place] [address] Care Team Providers Care Snow Removing Supervisor Name Role Phone Abelino Montenegro MD Primary Care Provide r Reason for Visit * Reason Comments Med Refill Encounter Details Date Type Department Care Team ([facility] st Contact Info) Description 10/25/2023 Refill [facility] MEDICINE 230 [place], [place] [phone] Debbie Jaime MD 230 [place], [place] [phone] Gastroesophageal reflux disease without esophagitis Social History [...] documented as of this encounter Care Teams Snow Removing Supervisor Relationship Specialty Start Date End Date Abelino Montenegro MD [address] [place] [address] PCP - General Internal Medicine 03/10/21 documented as of this encounter
--- OUTSIDE RECORDS SUMMARY | 2025-03-15 14:34 | XMS_ITS | Patient Health Record ---
Author Organization [facility] [facility] Sand[facility] Address [address] [place] [address] Care Team Providers Care Cloud Consultant Name Role Phone Adriel Whitfield MD, Abelino Primary Care Provide r Oscar Mas [phone] Reason For Referral No Information Medications Medication SIG (Take, Route, Fr equency, Duration) Notes Start Date End Date Status Dicyclomine HCl 10mg 1 or 2 capsules po QID prn abdominal cramps or diarrhea; Duration: 30 Active Plan Of Treatment No Information
--- OUTSIDE RECORDS SUMMARY | 2025-03-15 14:34 | XMS_ITS | Encounter Summary ---
Author Organization [employer] Address [address] [facility] 7t [place] [address] Care Team Providers Care Polishing Machine Tender Name Role Phone Abelino Montenegro MD Primary Care Provide r Reason for Visit * Reason Comments Med Refill Encounter Details Date Type Department Care Team ([facility] st Contact Info) Description 07/06/2023 Refill [facility] MEDICINE 230 [place], [place] [phone] Abelino Montenegro MD 230 [place], [place] [phone] Social History Tobacco Use Types Packs/Day Years [...] documented as of this encounter Care Teams Polishing Machine Tender Relationship Specialty Start Date End Date Abelino Montenegro MD 230 [place] [address] PCP - General Internal Medicine 03/10/21 documented as of this encounter
--- OUTSIDE RECORDS SUMMARY | 2025-03-15 14:34 | XMS_ITS | Encounter Summary ---
Author Organization [employer] Address [address] [facility] 7t [place] [address] Care Team Providers Care Electric Motorman Name Role Phone Abelino Montenegro MD Primary Care Provide r Reason for Visit * Reason Onset Date Comments Med Refill 11/16/2024 Encounter Details Date Type Department Care Team (Late st Contact Info) Description 11/16/2024 Telephone [facility] MEDICINE 230 [place] [address] Abelino Montenegro MD 230 [place] [address] Med Refill Social History Tobacco Use Types [...] with others, in a hotel, in a senior care, living outside on the street, on a [...] Telephone Encounter - Viv Barnard LPN - 11/16/2024 12:35 PM EDT Medication was sent to [facility] #[id number] on 10/11/24 with 2 refills. * Telephone Encounter - Gerardo Willson - 11/16/2024 12:11 PM EDT TC from pt requesting medication refill. Medications needing refill: Trulicity 1.5 MG/0.5ML solution pen-injector To be sent to: [facility]/pharmacy #[id number] - [address] documented in this encounter Plan of Treatment Not on file documented as of this encounter Visit Diagnoses Not on filedocumented in this encounter Additional Health Concerns Assessment Noted Time PHQ-9 Depression Total Score: 18 025 12:20 PM EDT documented as of this encounter Care Teams Electric Motorman Relationship Specialty Start Date End Date Abelino Montenegro MD 230 [place] [address] PCP - General Internal Medicine 03/10/21 documented as of this encounter
--- OUTSIDE RECORDS SUMMARY | 2025-03-15 14:34 | XMS_ITS | Clinical Summary ---
Author Organization [employer] Address [address] [place] [address] Care Team Providers Care Director Of Acquisitions Name Role Phone Unavailable Primary Care Provider [...] history exists Osteoporosis screening (bone density) 2016 Influenza vaccine 12/07/2024 Covid-19 vaccine series ( season) 2025 RSV Immunization (1 - 1-dose 75+ series) 2026 Cervical cancer screening Discontinued Meningococcal B Vaccine Aged Out No l [...] EDT) Glucose 233(H) 70 - 100 mg/dL [facility] BUN 7 7 - 20 mg/dL [facility] Creatinine 0.6 0.5 - 1.2 mg/dL [facility] BUN/Creatinine Ratio 11.7 10.0 - 20.0 [facility] Anion Gap 11 7 - 16 [facility] CO2 21.8(L) 22.0 - 30.0 mmol/L [facility] Chloride 104 96 - 106 mmol/L [facility] Sodium 137 135 - 145 mmol/L [facility] Potassium 4.3 3.5 - 5.0 mmol/L [facility] Calcium 9.1 8.8 - 10.2 mg/dL [facility] 01/14/2011 3:30 AM EDT us Shakira LEWIS LAB BLOOD ORDERABLES Final Resul t [facility] [address] [place] [address] from Last 3 Months or Most Recently Relevant to Health Maintenance
--- OUTSIDE RECORDS SUMMARY | 2025-03-15 14:34 | XMS_ITS | Encounter Summary ---
Author Organization [employer] Address [address] [facility] 7t [place] [address] Care Team Providers Care Ceramics Artist Name Role Phone Abelino Montenegro MD Primary Care Provide r Reason for Visit * Reason Comments Med Refill Encounter Details Date Type Department Care Team ([facility] st Contact Info) Description 11/24/2024 Refill [facility] MEDICINE 230 [place] [address] Abelino Montenegro MD 230 [place] [address] Social History Tobacco Use Types Packs/Day Years [...] with others, in a hotel, in a care home, living outside on the street, on a [...] documented as of this encounter Care Teams Ceramics Artist Relationship Specialty Start Date End Date Abelino Montenegro MD [address] [place] [phone] PCP - General Internal Medicine 03/10/21 documented as of this encounter
--- OUTSIDE RECORDS SUMMARY | 2025-03-15 14:34 | XMS_ITS | Encounter Summary ---
Author Organization [employer] Address [address] [facility] [address] 7t [place] [address] Care Team Providers Care Curing Oven Tender Name Role Phone Abelino Montenegro MD Primary Care Provide r Reason for Visit * Reason Comments Med Refill Encounter Details Date Type Department Care Team ([facility] st Contact Info) Description 09/08/2023 Refill [facility] MED & PEDS [address] [place] [address] Abelino Montenegro MD 230 [place], [place] [phone] Social History Tobacco Use Types Packs/Day Years [...] documented as of this encounter Care Teams Curing Oven Tender Relationship Specialty Start Date End Date Abelino Montenegro MD [address] [place] [phone] PCP - General Internal Medicine 03/10/21 documented as of this encounter
--- OUTSIDE RECORDS SUMMARY | 2025-03-15 14:34 | XMS_ITS | Encounter Summary ---
Author Organization [employer] Address [address] [facility] [address] 7t [place] [address] Care Team Providers Care Digital Forensic Examiner Name Role Phone Abelino Montenegro MD Primary Care Provide r Reason for Visit * Reason Comments Med Refill Encounter Details Date Type Department Care Team ([facility] st Contact Info) Description 01/25/2024 Refill [facility] CHC MED & PEDS [address] [place] [address] Abelino Montenegro MD 230 [place], [place] [phone] Social History Tobacco Use Types Packs/Day Years [...] documented as of this encounter Care Teams Digital Forensic Examiner Relationship Specialty Start Date End Date Abelino Montenegro MD 230 [place] [address] PCP - General Internal Medicine 03/10/21 documented as of this encounter
--- OUTSIDE RECORDS SUMMARY | 2025-03-15 14:34 | XMS_ITS | Encounter Summary ---
Author Organization [employer] Address [address] [facility] [address] 7t [place] [address] Care Team Providers Care Hebrew Professor Name Role Phone Abelino Montenegro MD Primary Care Provide r Reason for Visit * Reason Comments Med Refill Encounter Details Date Type Department Care Team ([facility] st Contact Info) Description 09/03/2023 Refill [facility] CHC MED & PEDS [address] [place] [address] Abelino Montenegro MD 230 [place], [place] [phone] Social History Tobacco Use Types Packs/Day Years [...] documented as of this encounter Care Teams Hebrew Professor Relationship Specialty Start Date End Date Abelino Montenegro MD [address] [place] [phone] PCP - General Internal Medicine 03/10/21 documented as of this encounter
--- OUTSIDE RECORDS SUMMARY | 2025-03-15 14:34 | XMS_ITS | Encounter Summary ---
Author Organization [employer] Address [address] [facility] 7t [place] [address] Care Team Providers Care Collating Machine Operator Name Role Phone Abelino Montenegro MD Primary Care Provide r Reason for Visit * Reason Comments Med Refill Encounter Details Date Type Department Care Team ([facility] st Contact Info) Description 10/20/2023 Refill [facility] MEDICINE 230 [place], [place] [phone] Debbie Jaime MD 230 [place], [place] [phone] Gastroesophageal reflux disease without esophagitis Social History [...] documented as of this encounter Care Teams Collating Machine Operator Relationship Specialty Start Date End Date Abelino Montenegro MD [address] [place] [phone] PCP - General Internal Medicine 03/10/21 documented as of this encounter
--- OUTSIDE RECORDS SUMMARY | 2025-03-15 14:34 | XMS_ITS | Encounter Summary ---
Author Organization [employer] Address [address] [facility] [address] [facility] [address] 7t [place] [address] Care Team Providers Care Complaint Evaluation Officer Name Role Phone Abelino Montenegro MD Primary Care Provide r Reason for Visit * Reason Comments Med Refill Encounter Details Date Type Department Care Team ([facility] st Contact Info) Description 12/15/2023 Refill [facility] CHC MED & PEDS [address] [place] [address] Abelino Montenegro MD 230 [place] [address] Type 2 diabetes mellitus without complication, without long-term current use of insulin ([facility]) Social History Tobacco Use Types Packs/Day [...] documented as of this encounter Care Teams Complaint Evaluation Officer Relationship Specialty Start Date End Date Abelino Montenegro MD [address] [place] [phone] PCP - General Internal Medicine 03/10/21 documented as of this encounter
--- OUTSIDE RECORDS SUMMARY | 2025-03-15 14:34 | XMS_ITS | Encounter Summary ---
Author Organization [employer] Address [address] [facility] 7t [place] [address] Care Team Providers Care Women'S Studies Lecturer Name Role Phone Abelino Montenegro MD Primary Care Provide r Encounter Details Date Type Department Care Team (Late st Contact Info) Description 06/30/2022 Orders Only [facility] CHC MED & PEDS [address] [place], [place] [phone] Viv Barnard LPN Social History Tobacco Use [...] documented as of this encounter Care Teams Women'S Studies Lecturer Relationship Specialty Start Date End Date Abelino Montenegro MD [address] [place] [phone] PCP - General Internal Medicine 03/10/21 documented as of this encounter
--- OUTSIDE RECORDS SUMMARY | 2025-03-15 14:34 | XMS_ITS | Encounter Summary ---
Author Organization [employer] Address [address] [facility] 7t [place] [address] Care Team Providers Care Manager Of Application Development Name Role Phone Abelino Montenegro MD Primary Care Provide r Reason for Visit * Reason Comments Med Refill Encounter Details Date Type Department Care Team ([facility] st Contact Info) Description 01/07/2023 Refill [facility] MEDICINE 230 [place] [address] Abelino Montenegro MD 230 [place] [address] Social History Tobacco Use Types Packs/Day Years [...] below as STAT. Telephone call placed to [facility]. Spoke to RN whostates will give to provider for review DIONY and will follow up with pt. * Telephone Encounter - Marquita Zuleta RN - 01/20/2023 12:03 PM EDT ----- Message from Abelino Whitfield MD sent at 01/19/2023 2:57 PM EDT ----- CT of Abdomen done at [facility] worrisome for gastritis or ulcer disease, mass cannot be excluded, Pleasefax report to [facility] Gastroenterology ( She is their patient ) [...] as of this encounter Care Teams Manager Of Application Development Relationship Specialty Start Date End Date Abelino Montenegro MD [address] [place] [phone] PCP - General Internal Medicine 03/10/21 documented as of this encounter
--- OUTSIDE RECORDS SUMMARY | 2025-03-15 14:34 | XMS_ITS | Encounter Summary ---
Author Organization [employer] Address [address] [facility] [address] 7t [place] [address] Care Team Providers Care Assembler Gold Frame Name Role Phone Abelino Montenegro MD Primary Care Provide r Reason for Visit * Reason Comments Med Refill Encounter Details Date Type Department Care Team ([facility] st Contact Info) Description 09/17/2023 Refill [facility] CHC MED & PEDS [address] [place] [address] Abelino Montenegro MD 230 [place], [place] [phone] Social History Tobacco Use Types Packs/Day Years [...] documented as of this encounter Care Teams Assembler Gold Frame Relationship Specialty Start Date End Date Abelino Montenegro MD [address] [place] [phone] PCP - General Internal Medicine 03/10/21 documented as of this encounter
--- OUTSIDE RECORDS SUMMARY | 2025-03-15 14:34 | XMS_ITS | Encounter Summary ---
Author Organization [employer] Address [address] [facility] [address] 7t [place] [address] Care Team Providers Care Concrete Stone Finisher Name Role Phone Abelino Montenegro MD Primary Care Provide r Encounter Details Date Type Department Care Team (Late st Contact Info) Description 09/01/2023 Orders Only [facility] MEDICINE 230 [place], [place] [phone] ProviderHans MD Social History Tobacco Use Types [...] * Hm Colonoscopy (09/03/2021 8:02 AM EDT) us Historical Provider HEALTH MAINTENANCE Final Result documented in this encounter Visit Diagnoses Not on filedocumented in this encounter Additional Health Concerns Assessment Noted Time PHQ-9 Depression Total Score: 0 09/02/19 23 11:43 AM EDT documented as of this encounter Care Teams Concrete Stone Finisher Relationship Specialty Start Date End Date Abelino Montenegro MD [address] [place] [address] PCP - General Internal Medicine 03/10/21 documented as of this encounter
--- OUTSIDE RECORDS SUMMARY | 2025-03-15 14:35 | XMS_ITS | Encounter Summary ---
Author Organization [employer] Address [address] [facility] 7t [place] [address] Care Team Providers Care Electric Crane Operator Name Role Phone Abelino Montenegro MD Primary Care Provide r Encounter Details Date Type Department Care Team (Late st Contact Info) Description 09/16/2022 Abstract [facility] MEDICINE 230 [place] [address] Abelino Montenegro MD 230 [place] [address] Social History Tobacco Use Types Packs/Day Years [...] as of this encounter Care Teams Electric Crane Operator Relationship Specialty Start Date End Date Abelino Montenegro MD [address] [place] [phone] PCP - General Internal Medicine 03/10/21 documented as of this encounter
--- OUTSIDE RECORDS SUMMARY | 2025-03-15 14:35 | XMS_ITS | Encounter Summary ---
Author Organization [employer] Address [address] [facility] 7t [place] [address] Care Team Providers Care Production Broacher Name Role Phone Abelino Montenegro MD Primary Care Provide r Reason for Visit * Reason Comments Med Refill Encounter Details Date Type Department Care Team ([facility] st Contact Info) Description 11/18/2023 Refill [facility] MEDICINE 230 [place], [place] [phone] Abelino Montenegro MD 230 [place], [place] [phone] Benign hypertension; Type 2 diabetes mellitus without complication, without long-term current use of insulin ([facility]); Mild intermittent asthma without [...] insulin (HCC) Mild intermittent asthma without complication documented in this encounter Additional Health Concerns Assessment Noted Time PHQ-9 Depression Total Score: 4 11/03/19 24 1:09 PM EDT documented as of this encounter Care Teams Production Broacher Relationship Specialty Start Date End Date Abelino Montenegro MD 230 [place] [address] PCP - General Internal Medicine 03/10/21 documented as of this encounter
--- OUTSIDE RECORDS SUMMARY | 2025-03-15 14:35 | XMS_ITS | Encounter Summary ---
Author Organization [employer] Address 75 [facility] 7t [place] [address] Care Team Providers Care Maintenance Supervisor Name Role Phone Abelino Montenegro MD Primary Care Provide r Reason for Visit * Reason Comments Med Refill Encounter Details Date Type Department Care Team ([facility] st Contact Info) Description 11/03/2023 Refill [facility] MEDICINE 230 [place], [place] [phone] Debbie Jaime MD 230 [place], [place] [phone] Gastroesophageal reflux disease without esophagitis Social History [...] AM EDT documented as of this encounter Functional Status * Over the past 2 weeks, how often have you been bothered by any of the following problems? Question Answer Date of Assessment Author Patient Health Questionnaire -2 Score 2 11/03/2023 1:09 PM EDT John Quevedo MA * If you checked off any problems on this questionnaire so far, Question Answer Date of Assessment Author How difficult have these problems made it for you to do your work, take care of things at home, or get along with other people? Not difficult at all 11/03/2023 1:09 PM EDT Kadi Quevedo MA * Over the past 2 weeks, how often have you been bothered by any of the following problems? Question Answer Date of Assessment Author Little interest or pleasure in doing things Several days 11/03/2023 1:09 PM MAURIC[employer] John Quevedo MA Feeling down, depressed, or hopeless Several days 11/03/2023 1:09 PM MAURICIOT John Quevedo MA Trouble falling or staying asleep, or sleeping too much Not at all 11/03/2023 1:09 PM MAURICIOT Robyn Garsia MA Feeling tired or having little energy Not at all 11/03/2023 1:09 PM MAURICIOT John Quevedo MA Poor appetite or overeating Not at all 11/03/2023 1: 09 PM MAURICIOT Robyn Quevedo MA Feeling bad about yourself - or that you are a failure or have let yourself or your family down Several days 11/03/2023 1:09 PM EDT John Quevedo MA Trouble concentrating on things, such as reading the newspaper or watching television Several days 11/03/2023 1:09 PM EDT John Quevedo MA Moving or speaking so slowly that other people could have noticed? Or the opposite - being so fidgety or restless that you have been moving around a lot more than usual. Not at all 11/03/2023 1:09 PM EDT John Quevedo MA Thoughts that you would be better off or hurting yourself in some way Not at all 11/03/2023 1:09 PM EDT Kadi Quevedo MA Patient Health Questionnaire-9 Score 4 11/03/2023 1:09 PM EDT Baldev Quevedo MA documented as of this encounter Plan of Treatment Not on file documented as of this encounter Visit Diagnoses Diagnosis Gastroesophageal reflux disease without esophagitis Esophageal reflux documented in this encounter Additional Health Concerns Assessment Noted Time PHQ-9 Depression Total Score: 4 11/03/19 24 1:09 PM EDT documented as of this encounter Care Teams Maintenance Supervisor Relationship Specialty Start Date End Date Abelino Montenegro MD [address] [place] [phone] PCP - General Internal Medicine 03/10/21 documented as of this encounter
--- OUTSIDE RECORDS SUMMARY | 2025-03-15 14:35 | XMS_ITS | Encounter Summary ---
Author Organization [employer] Address [address] [facility] 7t [place] [address] Care Team Providers Care Housing Assistant Property Manager Name Role Phone Abelino Montenegro MD Primary Care Provide r Reason for Visit * Reason Comments Med Refill Encounter Details Date Type Department Care Team ([facility] st Contact Info) Description 11/01/2023 Refill [facility] MEDICINE 230 [place], [place] [phone] Abelino Montenegro MD 230 [place], [place] [phone] Mild intermittent asthma without complication; Type 2 diabetes mellitus without complication, without long-term current use of insulin ([facility]); [...] Not at all 11/03/2023 1: 09 PM EDT Robyn Quevedo MA Feeling bad about yourself [...] usual. Not at all 11/03/2023 1:09 PM MAURICIOT John Quevedo MA Thoughts that you would [...] without long-term current use of insulin (HCC) Benign hypertension Essential hypertension, benign documented in this encounter Additional Health Concerns Assessment Noted Time PHQ-9 Depression Total Score: 0 09/02/19 23 11:43 AM EDT documented as of this encounter Care Teams Housing Assistant Property Manager Relationship Specialty Start Date End Date Abelino Montenegro MD [address] [place] [phone] PCP - General Internal Medicine 03/10/21 documented as of this encounter
--- OUTSIDE RECORDS SUMMARY | 2025-03-15 14:35 | XMS_ITS | Encounter Summary ---
Author Organization [employer] Address [address] [facility] 7t [place] [address] Care Team Providers Care Rail Loader Name Role Phone Abelino Montenegro MD Primary Care Provide r Reason for Visit * Reason Comments Med Refill Encounter Details Date Type Department Care Team ([facility] st Contact Info) Description 10/08/2022 Refill [facility] MEDICINE 230 [place] [address] Abelino Montenegro MD 230 [place], [place] [phone] Social History Tobacco Use Types Packs/Day Years [...] documented as of this encounter Care Teams Rail Loader Relationship Specialty Start Date End Date Abelino Montenegro MD 230 [place] [address] PCP - General Internal Medicine 03/10/21 documented as of this encounter
--- OUTSIDE RECORDS SUMMARY | 2025-03-15 14:35 | XMS_ITS | Encounter Summary ---
Author Organization [employer] Address [address] [facility] 7t [place] [address] Care Team Providers Care Computer Trainer Name Role Phone Abelino Montenegro MD Primary Care Provide r Reason for Visit * Reason Comments Med Refill Encounter Details Date Type Department Care Team (Late st Contact Info) Description 09/14/2022 Refill [facility] MEDICINE 230 [place] [address] Kimberlyn Phillips MD 505 [place] [address] Gastroesophageal reflux disease without esophagitis Social History [...] as of this encounter Care Teams Computer Trainer Relationship Specialty Start Date End Date Abelino Montenegro MD 230 [place] [address] PCP - General Internal Medicine 03/10/21 documented as of this encounter
--- OUTSIDE RECORDS SUMMARY | 2025-03-15 14:35 | XMS_ITS | Encounter Summary ---
Author Organization [employer] Address [address] [facility] 7t [place] [address] Care Team Providers Care Maid Cleaning Cooking Name Role Phone Abelino Montenegro MD Primary Care Provide r Reason for Visit * Reason Comments Med Refill Encounter Details Date Type Department Care Team ([facility] st Contact Info) Description 12/14/2023 Refill [facility] 230 [place] [address] Abelino Montenegro MD 230 [place] [address] Seasonal allergies; Essential hypertension Social History Tobacco [...] documented as of this encounter Care Teams Maid Cleaning Cooking Relationship Specialty Start Date End Date Abelino Montenegro MD 230 [place] [address] PCP - General Internal Medicine 03/10/21 documented as of this encounter
--- OUTSIDE RECORDS SUMMARY | 2025-03-15 14:35 | XMS_ITS | Encounter Summary ---
Author Organization [employer] Address 75 [facility] 7t [place] [address] Care Team Providers Care Health Professional Name Role Phone Abelino Montenegro MD Primary Care Provide r Reason for Visit * Reason Comments Med Refill Encounter Details Date Type Department Care Team ([facility] st Contact Info) Description 11/11/2023 Refill [facility] [address] [place], [place] [phone] Abelino Montenegro MD [address] [place], [place] [phone] Type 2 diabetes mellitus without complication, without long-term current use of insulin ([facility]); Mild intermittent asthma without complication; Benign hypertension [...] documented as of this encounter Care Teams Health Professional Relationship Specialty Start Date End Date Abelino Montenegro MD [address] [place] [address] PCP - General Internal Medicine 03/10/21 documented as of this encounter
--- OUTSIDE RECORDS SUMMARY | 2025-03-15 14:35 | XMS_ITS | Encounter Summary ---
Author Organization [employer] Address 75 [facility] 7t [place] [address] Care Team Providers Care Train Inspector Name Role Phone Abelino Montenegro MD Primary Care Provide r Encounter Details Date Type Department Care Team (Late st Contact Info) Description 09/15/2022 Abstract [facility] MED[facility]INE [address] [place] [address] Abelino Montenegro MD 230 [place] [address] Social History Tobacco Use Types Packs/Day Years [...] documented as of this encounter Care Teams Train Inspector Relationship Specialty Start Date End Date Abelino Montenegro MD [address] [place] [phone] PCP - General Internal Medicine 03/10/21 documented as of this encounter
== END 2025-03-15 13:11 | disposition home or self-care (01) ==
LOC: HO.RHES 12:19
PROVIDERS: PCP Internal Medicine; Visit Provider Student in an Organized Health Care Education/Training Program
DX: M15.9 Polyosteoarthritis, unspecified (principal)
CPT/HCPCS: 99213

== ENCOUNTER → 2025-03-15 12:19 | Outpatient (BNVA) | payer OTHER, SELFPAY | PROVIDERS: PCP Internal Medicine; Visit Provider Student in an Organized Health Care Education/Training Program | DX: M15.9 Polyosteoarthritis, unspecified (principal) | CPT/HCPCS: 99212 ==

== ENCOUNTER 2025-04-18 18:05 | Outpatient (REF) | payer OTHER, SELFPAY ==
--- OUTSIDE RECORDS SUMMARY | 2025-04-18 11:20 | XMS_ITS | Encounter Summary ---
Author Organization [employer] Address [address] [facility] [address] 7t [place] [address] Care Team Providers Care Business Support Professional Name Role Phone Abelino Montenegro MD Primary Care Provide r Encounter Details Date Type Department Care Team ([facility] st Contact Info) Description 04/18/2025 11:20 AM EST Office Visit [facility] 230 [place], [place] [phone] Viv Barker DO [address] [place] [address] Acute UTI Social History Tobacco Use Types Packs/Day Years [...] with others, in a hotel, in a long-term, living outside on the street, on a [...] Sign Reading Time Taken Comments Blood Pressure 140/80 04/18/2025 11:20 AM EST Pulse 71 04/18/2025 11:20 AM EST Temperature 36.8 C (98.3 F) 04/18/2025 11:20 AM EST Respiratory Rate 20 04/18/2025 11:20 AM EST Oxygen Saturation 96% 04/18/2025 11:20 AM EST Inhaled Oxygen Concentration - - Weight 74.8 kg (165 lb) 04/18/2025 11:20 AM EST Height 157.5 cm (5' 2 ) 04/18/2025 11:20 AM EST Body Mass Index 30.18 04/18/2025 11:20 AM EST documented in this encounter Progress Notes * Viv Barker, DO - 04/18/2025 11:20 AM EST SUBJECTIVE: Mercedes Foley is a 74 y.o. year old female who presents for sick visit. HPI She comes to [place] c/o blood in urine. 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 Respiratory: Negative for shortness of breath. Cardiovascular: Negative for chest pain and leg swelling. Gastrointestinal: Negative for abdominal pain, diarrhea, nausea and vomiting. Genitourinary: Positive for dysuria, hematuria, pelvic pain and urgency. Negative for flank pain and frequency. Neurological: Negative for headaches. Patient Active Problem List Diagnosis Anemia Asthma Depressive disorder Benign hypertension Gastroesophageal reflux disease Hypercholesterolemia Osteopenia Type 2 diabetes mellitus without complication Stress incontinence of urine Fecal smearing Preventative health care POST (nonalcoholic steatohepatitis) Osteoarthritis of hands, bilateral Low back pain without sciatica Skin rash Dermatitis Forgetfulness Obesity (BMI 30-39.9) Diabetic 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 associated with type 2 diabetes mellitus (HCC) Angioedema of lips Neck pain Allergies Allergen Reactions Lisinopril Angioedema lip OBJECTIVE Vitals: 04/18/25 1120 BP: (!) 140/80 BP Location: Left arm Patient Position: Sitting BP Cuff Size: Adult Pulse: 71 Resp: 20 Temp: 98.3 ??F (36.8 ??C) TempSrc: Oral SpO2: 96% Weight: 165 lb (74.8 kg) Height: 5' 2 (1.575 m) Physical Exam Constitutional: General: She is not in acute distress. Appearance: Normal appearance. Cardiovascular: Rate and Rhythm: Normal rate and regular rhythm. Heart sounds: Normal heart sounds. No murmur heard. Pulmonary: Effort: Pulmonary effort is normal. Breath sounds: Normal breath sounds. No wheezing or rhonchi. Abdominal: General: Bowel sounds are normal. Palpations: Abdomen is soft. There is no mass. Tenderness: There is no abdominal tenderness. There is no right CVA tenderness or left CVA tenderness. Neurological: General: No focal deficit present. Mental Status: She is alert and oriented to person, place, and time. Cranial Nerves: No cranial nerve deficit. Motor: No weakness. Gait: Gait normal. Psychiatric: Mood and Affect: Mood normal. Office Visit on 04/18/2025 Component Date Value Ref Range Status Color, UA 04/18/2025 Dark Abena Final Clarity, UA 04/18/2025 Hazy Final Glucose, UA 04/18/2025 3+ 500+++ Final Bilirubin, UA 04/18/2025 Trace Final small Ketones, UA 04/18/2025 Negative Final Spec Grav, UA 04/18/2025 1.015 Final Blood, UA 04/18/2025 Positive (A) Negative, None Detected Final Large pH, UA 04/18/2025 5.5 Final Protein, UA 04/18/2025 Trace Final 100mg Urobilinogen, UA 04/18/2025 1.0 Final Leukocytes, UA 04/18/2025 Negative Negative, Rare, Trace, 1+ (17), 2+ (35), 3+ (70), Trace (15) Final Nitrite, UA 04/18/2025 Positive (A) Negative, None Detected Final QC Media Lot # 04/18/2025 [id number] Final Lot# Expiration Date 04/18/[id number] Final ASSESSMENT/PLAN Diagnoses and all orders for this visit: Acute UTI -treat empirically with bactrim BID x 3 days -encouraged tylenol prn -send Ucx for senitivities -advised rtc if symptoms do not resolve, she agrees with plans - POCT Urinalysis - Culture, Urine, Routine; Future - sulfamethoxazole-trimethoprim (Bactrim DS) 800-160 MG tablet; Take 1 tablet by mouth 2 times daily for 3 days. F/U with PCP as scheduled or sooner prn Current Outpatient Medications: acetaminophen (Tylenol 8 Hour) 650 MG ER tablet, TAKE ONE TABLET BY MOUTH EVERY 8 HOURS NEEDED FOR PAIN, Disp: 60 tablet, Rfl: 1 albuterol (2.5 MG/3ML) 0.083% nebulizer solution, INHALE 1 VIAL VIA NEBULIZER FRANCINE VECES AL FREDIS, Disp: 90 mL, Rfl: 3 albuterol 108 (90 Base) MCG/ACT inhaler, INHALE 2 PUFFS BY MOUTH FOUR TIMES A DAY, Disp: 18 g, Rfl:1 Alcohol Swabs 70 % pads, USE FOUR TIMES A DAY, Disp: 100 each, Rfl: 5 amLODIPine (Norvasc) 5 MG tablet, TOME 1 TABLETA POR VIA ORAL TODOS LOS BOYD, Disp: 90 tablet, Rfl:1 aspirin (Aspirin Low Dose) 81 MG EC tablet, TAKE ONE TABLET BY MOUTH EVERY DAY, Disp: 90 tablet, Rfl: 0 calamine lotion, APPLY TOPICALLY IF NEEDED FOR ITCHING., Disp: 118 mL, Rfl: 0 calcium carbonate 1500 (600 Ca) MG tablet, TOME 1 TABLETA POR VIA ORAL DOS VECES AL FREDIS, Disp: 180 tablet, Rfl: 1 cyclobenzaprine (Flexeril) 10 MG tablet, TAKE 1 TABLET BY MOUTH EVERY 8 HOURS IF NEEDED FOR MUSCLE SPASMS, Disp: 45 tablet, Rfl: 0 dextran 70-hypromellose PF (artificial tears) 0.1-0.3 % ophthalmic solution, Administer 1 drop intoboth eyes if needed in the morning, at noon, and at bedtime for dry eyes., Disp: 1 each, Rfl: 3 Diclofenac Sodium 1 % gel, Apply to back twice daily, Disp: 100 g, Rfl: 1 diphenhydrAMINE (BENADryl) 25 MG tablet, TAKE 1 CAPSULE BY MOUTH EVERY 8 HOURS IF NEEDED FOR ITCHING OR ALLERGIES, Disp: 30 tablet, Rfl: 1 diphenoxylate-atropine (Lomotil) 2.5-0.025 MG tablet, TAKE 1 TABLET BY MOUTH IF NEEDED IN THE MORNING AND AT BEDTIME FOR DIARRHEA., Disp: 10 tablet, Rfl: 0 Dulaglutide (Trulicity) 1.5 MG/0.5ML solution auto-injector, Inject 1.5 mg under the skin 1 (one) time per week., Disp: 6 mL, Rfl: 2 fluticasone (Flovent) 220 MCG/ACT inhaler, INHALE 1 PUFF IN THE MORNING AND AT BEDTIME, Disp: 12 g,Rfl: 11 FreeStyle lancets, 1 each by Other route every 12 (twelve) hours., Disp: 100 each, Rfl: 12 glucose blood (FREESTYLE LITE) test strip, USE TO TEST BLOOD SUGAR THREE TO FOUR TIMES A DAY (BULK), Disp: 100 strip, Rfl: 11 insulin pen needle (B-D ULTRAFINE III SHORT PEN) 31G X [facility], USE DIRECTED FOUR TIMES A DAY (BULK), Disp: 100 each, Rfl: 11 lidocaine (Lidoderm) 5 % patch, APPLY 1 PATCH TOPICALLY LEAVE ON FOR UP TO 12 HOURS, Disp: 30 patch, Rfl: 11 loratadine (Claritin) 10 MG tablet, TOME 1 TABLETA POR VIA ORAL TODOS LOS BOYD EN [facility], Disp: 90 tablet, Rfl: 1 LORazepam (Ativan) 1 MG tablet, TAKE ONE TABLET ONE HOUR BEFORE THE PROCEDURE., Disp: , Rfl: meclizine (Antivert) 25 MG tablet, TAKE 1 TABLET BY MOUTH 2 TIMES EVERY DAY NEEDED FOR DIZZINESS, Disp: 30 tablet, Rfl: 0 montelukast (Singulair) 10 MG tablet, TOME 1 TABLETA POR VIA ORAL TODOS LOS BOYD, Disp: 90 tablet, Rfl: 0 oxybutynin XL (Ditropan-XL) 10 MG 24 hr tablet, TAKE 1 TABLET BY MOUTH EVERYDAY AT NOON, Disp: , Rfl: pantoprazole (ProtoNix) 40 MG EC tablet, TOME 1 TABLETA POR VIA ORAL TODOS LOS BOYD, Disp: 90 tablet, Rfl: 0 pregabalin (Lyrica) 100 MG capsule, TAKE ONE CAPSULE BY MOUTH TWICE A DAY, Disp: 60 capsule, Rfl: 0 simethicone (Simethicone Ultra Strength) 180 MG capsule, TAKE 1 CAPSULE BY MOUTH THREE TIMES A DAY,Disp: 90 capsule, Rfl: 0 sucralfate (Carafate) 1 g tablet, Take 2 g by mouth in the morning., Disp: , Rfl: sulfamethoxazole-trimethoprim (Bactrim DS) 800-160 MG tablet, Take 1 tablet by mouth 2 times daily for 3 days., Disp: 6 tablet, Rfl: 0 Synjardy 12.5-1000 MG, TOME 1 TABLETA POR VIA ORAL DOS VECES AL FREDIS, Disp: 180 tablet, Rfl: 3 traMADol (Ultram) 50 MG tablet, Take 1 tablet (50 mg) by mouth every 12 (twelve) hours if needed for severe pain., Disp: 30 tablet, Rfl: 0 traZODone (Desyrel) 50 MG tablet, TAKE 1 TABLET BY MOUTH AT BEDTIME FOR INSOMNIA, Disp: , Rfl: triamcinolone (Kenalog) 0.1 % cream, APPLY TOPICALLY IF NEEDED IN THE MORNING AND AT BEDTIME (PAIN AND SWELLING)., Disp: 30 g, Rfl: 2 Trulicity 1.5 MG/0.5ML solution pen-injector, INJECT 0.5ML SUBCUTANEOUSLY ONCE WEEKLY IN THE ABDOMEN, THIGH, OR UPPER ARM; ROTATING INJECTION SITES (BULK), Disp: 2 mL, Rfl: 3 venlafaxine XR (Effexor XR) 37.5 MG 24 hr capsule, TAKE 1 CAPSULE BY MOUTH ONCE A DAY FOR SYMPTOMS OF DEPRESSION/ANXIETY., Disp: , Rfl: Viberzi 75 MG tablet, , Disp: , Rfl: This note was drafted using Ambient (AI) technology. The patient/patient's guardian has been informed and has consented to the use of this technology: Yes documented in this encounter Plan of Treatment Upcoming Encounters Date Type Department Care Team (Late st Contact Info) Description 06/25/2025 2:15 PM EST Office Visit [facility] [address] [place] [phone] Abelino Montenegro MD [address] [place], [place] [phone] Scheduled Orders Name Type Priority Associated Diagnoses Orde r Schedule Culture, Urine, Routine Microbiology Routine Acute UTI Expected: 04/18/2025 (Approximate), Expires: 04/18/2026 documented as of this encounter Goals Goal Patient Goal Type Associated Problems Recent Progress Patient-Stated? Author Help patients manage their type 2 diabetes Care Plan Help patients manage their type 2 diabetes Viv Aparicio DO Weekly blood pressure task Care Plan Weekly blood pressure task No Viv Barker DO Help patients manage their type 2 diabetes Care Plan Help patients manage their type 2 diabetes Viv Aparicio DO Patient has chronic kidney disease Care Plan Patient has chronic kidney disease No Viv Barker DO Help patients manage their type 2 diabetes Care Plan Help patients manage their type 2 diabetes Viv Aparicio DO Patient has diabetic neuropathy Care Plan Patient has diabetic neuropathy Viv Aparicio DO Weekly blood pressure task Care Plan Weekly blood pressure task Viv Aparicio DO Weekly blood pressure task Care Plan Weekly blood pressure task No Viv Barker DO Patient has chronic kidney disease Care Plan Patient has chronic kidney disease Viv Aparicio DO Patient has chronic kidney disease Care Plan Patient has chronic kidney disease Viv Aparicio DO Patient has diabetic neuropathy Care Plan Patient has diabetic neuropathy No Viv Barker DO Patient has diabetic neuropathy Care Plan Patient has diabetic neuropathy No Viv Barker DO documented as of this encounter Procedures Procedure Name Priority Date/Time Associated Diagnosis Comments POCT URINALYSIS DIPSTICK Routine 04/18/2025 11:42 AM EST Acute UTI documented in this encounter Results * (ABNORMAL) POCT Urinalysis (04/18/2025 11:42 AM EST) Color, UA Dark Abena Clarity, UA Hazy Glucose, UA 3+ 500+++ Bilirubin, UA Trace Comment:small Ketones, UA Negative Spec Grav, UA 1.015 Blood, UA Positive(A) Negative, None Detected Comment:Large pH, UA 5.5 Protein, UA Trace Comment:100mg Urobilinogen, UA 1.0 Leukocytes, UA Negative Negative, Rare, Trace, 1+ (17), 2+ (35), 3+ (70), Trace (15) Nitrite, UA Positive(A) Negative, None Detected QC Media Lot # [id number] Lot# Expiration Date Urine (Urine, Random) 04/18/2025 11:42 AM EST Viv Barker DO POINT OF CARE TEST ENTER/ROSANGELA T ORDERABLES Final Result documented in this encounter Visit Diagnoses Diagnosis Acute UTI Urinary tract infection, site not specified documented in this encounter Additional Health Concerns Active Problems Noted Date Diagnosed Date Help patients manage their type 2 diabetes 04/18 Weekly blood pressure task 04/18/2025 Help patients manage their type 2 diabetes 04/18 Patient has chronic kidney disease 04/18/2025 Help patients manage their type 2 diabetes 04/18 Patient has diabetic neuropathy 04/18/2025 Weekly blood pressure task 04/18/2025 Weekly blood pressure task 04/18/2025 Patient has chronic kidney disease 04/18/2025 Patient has chronic kidney disease 04/18/2025 Patient has diabetic neuropathy 04/18/2025 Patient has diabetic neuropathy 04/18/2025 Assessment Noted Time PHQ-9 Depression Total Score: 18 025 12:20 PM EDT documented as of this encounter Care Teams Business Support Professional Relationship Specialty Start Date End Date Abelino Montenegro MD [address] [place] [address] PCP - General Internal Medicine 03/10/21 documented as of this encounter
--- OUTSIDE RECORDS SUMMARY | 2025-04-18 23:29 | XMS_ITS | Encounter Summary ---
Author Organization [employer] Address 75 [facility] 7t [place] [address] Care Team Providers Care Relationship Associate Name Role Phone Abelino Montenegro MD Primary Care Provide r Reason for Visit * Reason Comments Med Refill Encounter Details Date Type Department Care Team ([facility] st Contact Info) Description 03/28/2023 Refill [facility] MED[facility]INE [address] [place], [place] [phone] Abelino Montenegro MD 230 [place], [place] [phone] Social History Tobacco Use Types Packs/Day Years [...] Description 06/25/2025 2:15 PM EST Office Visit [facility]INE [address] [place] [address] Abelino Montenegro MD [address] [place] [phone] documented as of this encounter Visit Diagnoses Not on filedocumented in this encounter Additional Health Concerns Assessment Noted Time PHQ-9 Depression Total Score: 0 09/02/19 23 11:43 AM EDT documented as of this encounter Care Teams Relationship Associate Relationship Specialty Start Date End Date Abelino Montenegro MD [address] [place] [phone] PCP - General Internal Medicine 03/10/21 documented as of this encounter
--- OUTSIDE RECORDS SUMMARY | 2025-04-18 23:29 | XMS_ITS | Encounter Summary ---
Author Organization [employer] Address 75 [facility] 7t [place] [address] Care Team Providers Care Membership Sales Representative Name Role Phone Abelino Montenegro MD Primary Care Provide r Reason for Visit * Reason Comments Med Refill Encounter Details Date Type Department Care Team ([facility] st Contact Info) Description 06/10/2023 Refill [facility] MEDICINE [address] [place], [place] [phone] Abelino Montenegro MD [address] [place], [place] [phone] Social History Tobacco Use Types Packs/Day Years [...] Description 06/25/2025 2:15 PM EST Office Visit [facility] MEDICINE [address] [place] [address] Abelino Montenegro MD [address] [place] [phone] documented as of this encounter Visit Diagnoses Not on filedocumented in this encounter Additional Health Concerns Assessment Noted Time PHQ-9 Depression Total Score: 0 09/02/19 23 11:43 AM EDT documented as of this encounter Care Teams Membership Sales Representative Relationship Specialty Start Date End Date Abelino Montenegro MD [address] [place] [phone] PCP - General Internal Medicine 03/10/21 documented as of this encounter
--- OUTSIDE RECORDS SUMMARY | 2025-04-18 23:29 | XMS_ITS | Encounter Summary ---
Author Organization [employer] Address [address] [facility] 7t [place] [address] Care Team Providers Care Web Knitter Name Role Phone Abelino Montenegro MD Primary Care Provide r Reason for Visit * Reason Comments Med Refill Encounter Details Date Type Department Care Team ([facility] st Contact Info) Description 04/14/2023 Refill [facility] [address] [place], [place] [phone] Abelino Montenegro MD [address] [place], [place] [phone] Social History Tobacco Use Types Packs/Day Years [...] Description 06/25/2025 2:15 PM EST Office Visit [facility] [address] [place] [address] Abelino Montenegro MD [address] [place] [phone] documented as of this encounter Visit Diagnoses Not on filedocumented in this encounter Additional Health Concerns Assessment Noted Time PHQ-9 Depression Total Score: 0 09/02/19 23 11:43 AM EDT documented as of this encounter Care Teams Web Knitter Relationship Specialty Start Date End Date Abelino Montenegro MD [address] [place] [phone] PCP - General Internal Medicine 03/10/21 documented as of this encounter
--- OUTSIDE RECORDS SUMMARY | 2025-04-18 23:29 | XMS_ITS | Encounter Summary ---
Author Organization [employer] Address 75 [facility] 7t [place] [address] Care Team Providers Care Steam Distribution Supervisor Name Role Phone Abelino Montenegro MD Primary Care Provide r Reason for Visit * Reason Comments Med Refill Encounter Details Date Type Department Care Team ([facility] st Contact Info) Description 05/23/2023 Refill [facility] MEDICINE 230 [place], [place] [phone] Abelino Montenegro MD [address] [place], [place] [phone] Seasonal allergies; Essential hypertension Social History Tobacco [...] Description 06/25/2025 2:15 PM EST Office Visit [facility] [address] [place] [address] Abelino Montenegro MD [address] [place] [phone] documented as of this encounter Visit Diagnoses Diagnosis Seasonal allergies Allergic rhinitis, cause unspecified Essential hypertension Unspecified essential hypertension documented in this encounter Additional Health Concerns Assessment Noted Time PHQ-9 Depression Total Score: 0 09/02/19 23 11:43 AM EDT documented as of this encounter Care Teams Steam Distribution Supervisor Relationship Specialty Start Date End Date Abelino Montenegro MD [address] [place] [address] PCP - General Internal Medicine 03/10/21 documented as of this encounter
--- OUTSIDE RECORDS SUMMARY | 2025-04-18 23:29 | XMS_ITS | Encounter Summary ---
Author Organization [employer] Address 75 [facility] 7t [place] [address] Care Team Providers Care High Lighter Name Role Phone Abelino Montenegro MD Primary Care Provide r Reason for Visit * Reason Comments Med Refill Encounter Details Date Type Department Care Team ([facility] st Contact Info) Description 04/25/2023 Refill [facility] MEDICINE 230 [place], [place] [phone] Abelino Montenegro MD 230 [place], [place] [phone] Social History Tobacco Use Types Packs/Day Years [...] Description 06/25/2025 2:15 PM EST Office Visit [facility] MED[facility]INE [address] [place] [address] Abelino Montenegro MD [address] [place] [phone] documented as of this encounter Visit Diagnoses Not on filedocumented in this encounter Additional Health Concerns Assessment Noted Time PHQ-9 Depression Total Score: 0 09/02/19 23 11:43 AM EDT documented as of this encounter Care Teams High Lighter Relationship Specialty Start Date End Date Abelino Montenegro MD [address] [place] [id number] PCP - General Internal Medicine 03/10/21 documented as of this encounter
--- OUTSIDE RECORDS SUMMARY | 2025-04-18 23:29 | XMS_ITS | Clinical Summary ---
Author Organization [facility] Address [address] [facility] [address] [place] [address] Phone Care Team Providers Care Electric Sign Assembler Name Role Phone Abelino Maddox MD Primary [...] VIA [facility] [place] [facility] [facility] 5 Active montelukast (SINGULAIR) 10 mg tablet [...] 2 (two) times a day as needed. Active venlafaxine (EFFEXOR-XR) 37.5 MG 24 hr [...] Encounters Date Type Department Care Team Description 04/11/2025 9:38 AM EST - 04/11/2025 11:59 PM EST Hospital Encounter Echo [facility] [place] [address] Virgil Gongora, DO Discharge Disposition: Home or Self Care 01/22/2025 1:30 PM EDT Office Visit [facility] [address] Floor, [address] [place] [address] Virgil Gongora, DO Encounter to establish care (Primary Dx); Cardiac murmur, unspecified; Pure hypercholesterolemi a; Bilateral carotid artery stenosis 01/22/2025 Procedure Pass Echo Lab [facility] [place] [address] from Last 3 Months Social History Tobacco [...] Care Team (Late st Contact Info) Description 07/22/2025 10:00 AM EDT Office Visit [facility] [address] [place] [address] 3rd Floor, [address] [place] [address] Virgil Gongora, 22 [facility] [address] [place] [address] Health Maintenance Due Date Last Done Comments [...] this topic Medical Devices Not on file Procedures Procedure Name Priority Date/Time Associated Diagnosis Comments TTE COMPREHENSIVE Routine 04/11/2025 11: 32 AM EST Cardiac murmur, unspecified from Last 3 Months Results * TTE COMPREHENSIVE (04/11/2025 11:32 AM EST) Height 158 cm Weight 74 kg Interventricular Septum Thickness 11 6 - 11 mm Left Ventricle Internal Diameter End Diastole 46 37 - 52 mm Left Ventricle Internal Diameter End Systole 29 <35 mm Left Ventricular Outflow Tract Diameter 20.0 mm Left Ventricular Posterior Wall Thickness 11 6 - 11 mm Left Ventricle Ea Lateral Wave Speed 7.9 cm/s Left Ventricle Ea Septal Wave Speed 5.2 cm/s Ejection Fraction 74 50 - 75 Percent Left Atrium Dimension Anterior-Posterior 41 15 - 40 mm Aortic Valve Mean Gradient 5 mmHg Aortic Valve Time Velocity Integral 313.0 mm Aortic Valve Peak Velocity 1.6 m/s Aortic Valve Peak Gradient 10 mmHg Aortic Arch Diameter 28 mm Aortic Sinus Diameter 37 <40 mm Ascending Aorta Diameter 42 <36 mm Inferior Vena Cava Diameter 14 <21 mm Mitral Valve Deceleration Time 225 ms Left Ventricle A Wave Speed 69.4 cm/s Left Ventricle E Wave Speed 54.0 cm/s Pulmonary Valve Peak Velocity 1.1 m/s Pulmonary Valve Peak Gradient 4 mmHg Right Ventricle Basal Diameter 41 25 - 41 mm Tricuspid Valve Peak Velocity 1.7 m/s Raw LV EF% 60 % MV E/E' Tissue Velocity Lateral 6.84 Relative Wall Thickness 0.48 0.22 - 0.42 MV E/A ratio 0.8 MV E/e' septal 10.38 Left Ventricle E/e' Average 8.6 Aortic Valve Prosthetic Peak Gradient 10 mmHg Aortic Valve Prosthetic Mean Gradient 5 mmHg Aorta Sinus Index by Height 2.34 cm/m Aorta Sinus CSA index by Height 6.80 cm2/m Asc Aorta CSA Index by Height 8.76 cm2/m Right Ventricle to Right Atrium Pressure Gradient 12 mmHg Right Ventricle Peak Systolic Pressure (Assuming RAP 10) 22 mmHg MGB CV ECHO TV RVSP (ASSUMING RAP OF 5) 17 mmHg RVSP (Exclusive of RAP) 12 mmHg Pulmonic Valve Prosthetic Peak Gradient 4 mmHg Echo E/Ea 10.38 Body Surface Area 1.75 m2 Left Ventricle indexed to BSA 103.6 g/m2 Left Ventricular Outflow Tract Velocity 0.9 m/s LVOT VTI REST 17.0 cm Aortic Valve Sinus Index by BSA 21 mm/m2 Ascending Aorta Index 24 mm/m2 MGB CV AV DIMENSIONLESS INDEX (PEAK) - STRESS ECHO DOBUT - REST 0.56 Ascending Aorta Index 24 mm Aortic Sinus Index 21 mm Ascending Aorta Diameter 24 mm Aortic Valve Sinus Index 1 21 19 - 27 mm AO ASC DIAM BSA INDEX 24.00 Anatomical Region Laterality Modality Heart Ultrasound Narrative 04/16/2025 6:59 AM EST Images from the original result were not included. 1. The indication is murmur. The estimated ejection fraction of left ventricle is normal at 55 to 60%. Diastolic function is normal left ventricular thickness is mildly increased and regional wall motion is normal. 2. Normal RV size and function. 3. There is a trileaflet aortic valve there is no evidence of aortic stenosis, the ascending aortic root measures 42 mm. 4. Trace mitral and trace tricuspid sufficiency, the PA pressure is normal. 5. Normal pericardium when compared to the prior echo done in 2020, there is no significant change with the exception of the ascending aortic root measurement going from 38 mm to 42 mm. Left Ventricle The left ventricle is normal in size. There is mild concentric hypertrophy. There is normal left ventricular systolic function. The LV ejection fraction is 55-60% (visually estimated). LV diastolic function appears within normal limits for age. Right Ventricle The right ventricle is normal in size. There is normal right ventricular systolic function. Left Atrium The left atrium is normal in size. Right Atrium The right atrium is normal in size. The IVC is normal in size with normal inspiratory collapse. Mitral Valve There is mitral valve thickening. There is no mitral stenosis. There is trace mitral regurgitation. Tricuspid Valve The tricuspid valve appears normal. There is no tricuspid stenosis. There is trace tricuspid regurgitation. Aortic Valve The aortic valve is tricuspid. There is leaflet calcification. There is aortic sclerosis without significant stenosis. The aortic valve peak velocity is 1.6 m/s. The peak and mean aortic valve gradients are 10 mmHg and 5 mmHg respectively. There is trace aortic regurgitation. The aortic sinuses are dilated. The ascending aorta is dilated. Pulmonic Valve The pulmonic valve appears normal. There is no pulmonic stenosis. There is trace pulmonic regurgitation. Pericardium There is no pericardial effusion. General Findings The image quality was fair (3). Technique(s) used in the evaluation: Multiplane, Color flow Doppler, Spectral Doppler and Epiaortic scan. Comparison Findings Compared to prior TTE report on 09/23/2020, IAS/IVS The interatrial septum appears normal. There is no evidence of patent foramen ovale (PFO). The interventricular septum appears normal. Virgil Gongora DO CV ECHO ORDERABLES Final Resu lt from Last 3 Months Insurance [facility] [employer] MEDICARE REPLACEMENT MEDICARE PART A & B [facility] [employer] MEDICARE REPLACEMENT [place] [id number] MEDICARE PART A & B [facility] MEDICARE REPLACEMENT MEDICARE PART A & B [facility] MEDICARE REPLACEMENT MEDICARE PART A & B [facility] MEDICARE REPLACEMENT MEDICARE PART A & B [facility] MEDICARE REPLACEMENT MEDICARE PART A & B Care Teams Electric Sign Assembler Relationship Specialty Start Date End Date Abelino Maddox MD [address] [place] [address] [address] [place]ares [phone] [email or web address] PCP - General Internal Medicine 01/22/25 Additional Source Comments The information contained in this document represents components of the legal health record. It is not the complete legal health record.[facility]
--- OUTSIDE RECORDS SUMMARY | 2025-04-18 23:29 | XMS_ITS | Encounter Summary ---
Author Organization [employer] Address [address] [facility] 7t [place] [address] Care Team Providers Care Reserve Operator Name Role Phone Abelino Montenegro MD Primary Care Provide r Reason for Visit * Reason Comments Med Refill Encounter Details Date Type Department Care Team ([facility] st Contact Info) Description 06/14/2023 Refill [facility] MED[facility]INE 230 [place], [place] [phone] Abelino Montenegro MD 230 [place], [place] [phone] Mild intermittent asthma without complication Social History [...] Description 06/25/2025 2:15 PM EST Office Visit [facility] [address] [place] [address] Abelino Montenegro MD [address] [place] [address] documented as of this encounter Visit Diagnoses Diagnosis Mild intermittent asthma without complication documented in this encounter Additional Health Concerns Assessment Noted Time PHQ-9 Depression Total Score: 0 09/02/19 23 11:43 AM EDT documented as of this encounter Care Teams Reserve Operator Relationship Specialty Start Date End Date Abelino Montenegro MD [address] [place] [address] PCP - General Internal Medicine 03/10/21 documented as of this encounter
--- OUTSIDE RECORDS SUMMARY | 2025-04-18 23:29 | XMS_ITS | Encounter Summary ---
Author Organization [employer] Address [address] [facility] 7t [place] [address] Care Team Providers Care Bench Scientist Name Role Phone Abelino Montenegro MD Primary Care Provide r Reason for Visit * Reason Comments Med Refill Encounter Details Date Type Department Care Team (Late Contact Info) Description 01/28/[address] [facility] MEDICINE [address] [place] [address] [phone] Abelino Montenegro MD 230 [place], [place] [phone] Social History Tobacco Use Types Packs/Day Years [...] Department Care Team (Late Contact Info) Description 06/25/2025 2:15 PM EST Office Visit [facility] MED[facility]INE [address] [place] [address] [phone] Abelino Montenegro MD 230 [place], [place] [phone] documented as of this encounter Visit Diagnoses Not on filedocumented in this encounter Additional Health Concerns Assessment Noted Time PHQ-9 Depression Total Score: 0 09/02/19 23 11:43 AM EDT documented as of this encounter Care Teams Bench Scientist Relationship Specialty Start Date End Date Abelino Montenegro MD 230 [place] [address] PCP - General Internal Medicine 03/10/21 documented as of this encounter
--- OUTSIDE RECORDS SUMMARY | 2025-04-18 23:29 | XMS_ITS | Encounter Summary ---
Author Organization [email or web address] Address [address] [facility] 7t [place] [address] Care Team Providers Care Microfiche Camera Operator Name Role Phone Abelino Montenegro MD Primary Care Provide r Reason for Visit * Reason Comments Med Refill Encounter Details Date Type Department Care Team ([facility] st Contact Info) Description 03/21/2023 Refill [facility] MEDICINE 230 [place], [place] [phone] Abelino Montenegro MD 230 [place], [place] [phone] Benign hypertension Social History Tobacco Use Types [...] Description 06/25/2025 2:15 PM EST Office Visit [facility] 230 [place] [address] Abelino Montenegro MD 230 [place] [address] documented as of this encounter Visit Diagnoses Diagnosis Benign hypertension Essential hypertension, benign documented in this encounter Additional Health Concerns Assessment Noted Time PHQ-9 Depression Total Score: 0 09/02/19 23 11:43 AM EDT documented as of this encounter Care Teams Microfiche Camera Operator Relationship Specialty Start Date End Date Abelino Montenegro MD 230 [place] [address] PCP - General Internal Medicine 03/10/21 documented as of this encounter
--- OUTSIDE RECORDS SUMMARY | 2025-04-18 23:29 | XMS_ITS | Encounter Summary ---
Author Organization [employer] Address [address] [facility] 7t [place] [address] Care Team Providers Care Pomology Teacher Name Role Phone Abelino Montenegro MD Primary Care Provide r Reason for Visit * Reason Comments Med Refill Encounter Details Date Type Department Care Team (Late Contact Info) Description 01/20/2023 Refill [facility] MEDICINE [address] [place] [address] [phone] Abelino Montenegro MD [address] [place] [address] [phone] Social History Tobacco Use Types Packs/Day Years [...] Description 06/25/2025 2:15 PM EST Office Visit [facility] MED[facility]INE [address] [place] [address] [phone] Abelino Montenegro MD 230 [place], [place] [phone] documented as of this encounter Visit Diagnoses Not on filedocumented in this encounter Additional Health Concerns Assessment Noted Time PHQ-9 Depression Total Score: 0 09/02/19 23 11:43 AM EDT documented as of this encounter Care Teams Pomology Teacher Relationship Specialty Start Date End Date Abelino Montenegro MD 230 [place] [address] PCP - General Internal Medicine 03/10/21 documented as of this encounter
--- OUTSIDE RECORDS SUMMARY | 2025-04-18 23:29 | XMS_ITS | Encounter Summary ---
Author Organization [employer] Address [address] [facility] 7t [place] [address] Care Team Providers Care Collection Administrator Name Role Phone Abelino Montenegro MD Primary Care Provide r Reason for Visit * Reason Comments Med Refill Encounter Details Date Type Department Care Team ([facility] st Contact Info) Description 04/05/[address] [facility] MEDICINE 230 [place], [place] [phone] Abelino Montenegro MD 230 [place], [place] [phone] Social History Tobacco Use Types Packs/Day Years [...] Description 06/25/2025 2:15 PM EST Office Visit [facility] MEDICINE 230 [place] [address] Abelino Montenegro MD [address] [place] [address] documented as of this encounter Visit Diagnoses Not on filedocumented in this encounter Additional Health Concerns Assessment Noted Time PHQ-9 Depression Total Score: 0 09/02/19 23 11:43 AM EDT documented as of this encounter Care Teams Collection Administrator Relationship Specialty Start Date End Date Abelino Montenegro MD [address] [place] [address] PCP - General Internal Medicine 03/10/21 documented as of this encounter
--- OUTSIDE RECORDS SUMMARY | 2025-04-18 23:29 | XMS_ITS | Encounter Summary ---
Author Organization [employer] Address [address] [facility] [address] 7[address] [place] [address] Care Team Providers Care Nurse Discharge Planner Name Role Phone Abelino Montenegro MD Primary Care Provide r Reason for Visit * Reason Comments Med Refill Encounter Details Date Type Department Care Team ([facility] st Contact Info) Description 03/29/2023 Refill [facility] MED & PEDS [address] [place] [address] Abelino Montenegro MD 230 [place], [place] [phone] Social History Tobacco Use Types Packs/Day Years [...] Description 06/25/2025 2:15 PM EST Office Visit [facility] MEDICINE [address] [place] [address] Abelino Montenegro MD [address] [place] [phone] documented as of this encounter Visit Diagnoses Not on filedocumented in this encounter Additional Health Concerns Assessment Noted Time PHQ-9 Depression Total Score: 0 09/02/19 23 11:43 AM EDT documented as of this encounter Care Teams Nurse Discharge Planner Relationship Specialty Start Date End Date Abelino Montenegro MD [address] [place] [address] PCP - General Internal Medicine 03/10/21 documented as of this encounter
--- OUTSIDE RECORDS SUMMARY | 2025-04-18 23:29 | XMS_ITS | Encounter Summary ---
Author Organization [employer] Address [address] [facility] 7t [place] [address] Care Team Providers Care Transcripter Name Role Phone Abelino Montenegro MD Primary Care Provide r Reason for Visit * Reason Comments Med Refill Encounter Details Date Type Department Care Team ([facility] st Contact Info) Description 03/21/2023 Refill [facility] MEDICINE 230 [place], [place] [phone] Debbie Jaime MD 230 [place], [place] [phone] Gastroesophageal reflux disease without esophagitis Social History [...] Description 06/25/2025 2:15 PM EST Office Visit [facility] MEDICINE [address] [place] [address] Abelino Montenegro MD 230 [place] [address] documented as of this encounter Visit Diagnoses Diagnosis Gastroesophageal reflux disease without esophagitis Esophageal reflux documented in this encounter Additional Health Concerns Assessment Noted Time PHQ-9 Depression Total Score: 0 09/02/19 23 11:43 AM EDT documented as of this encounter Care Teams Transcripter Relationship Specialty Start Date End Date Abelino Montenegro MD 230 [place] [address] PCP - General Internal Medicine 03/10/21 documented as of this encounter
--- OUTSIDE RECORDS SUMMARY | 2025-04-18 23:29 | XMS_ITS | Encounter Summary ---
Author Organization [employer] Address [address] [facility] 7t [place] [address] Care Team Providers Care Valuer Name Role Phone Abelino Montenegro MD Primary Care Provide r Reason for Visit * Reason Comments Med Refill Encounter Details Date Type Department Care Team (Late Contact Info) Description 02/03/2023 Refill [facility] MEDICINE [address] [place] [address] [phone] Abelino Montenegro MD 230 [place], [place] [phone] Social History Tobacco Use Types Packs/Day Years [...] Description 06/25/2025 2:15 PM EST Office Visit [facility] MEDICINE [address] [place] [address] [phone] Abelino Montenegro MD 230 [place], [place] [phone] documented as of this encounter Visit Diagnoses Not on filedocumented in this encounter Additional Health Concerns Assessment Noted Time PHQ-9 Depression Total Score: 0 09/02/19 23 11:43 AM EDT documented as of this encounter Care Teams Valuer Relationship Specialty Start Date End Date Abelino Montenegro MD 230 [place] [address] PCP - General Internal Medicine 03/10/21 documented as of this encounter
--- OUTSIDE RECORDS SUMMARY | 2025-04-18 23:29 | XMS_ITS | Encounter Summary ---
Author Organization [employer] Address [address] [facility] 7t [place] [address] Care Team Providers Care Linesperson Name Role Phone Abelino Montenegro MD Primary Care Provide r Reason for Visit * Reason Comments Med Refill Encounter Details Date Type Department Care Team ([facility] st Contact Info) Description 04/26/2023 Refill [facility] MEDICINE 230 [place], [place] [phone] Abelino Montenegro MD 230 [place], [place] [phone] Social History Tobacco Use Types Packs/Day Years [...] Description 06/25/2025 2:15 PM EST Office Visit [facility] MEDICINE [address] [place] [address] Abelino Montenegro MD [address] [place] [address] documented as of this encounter Visit Diagnoses Not on filedocumented in this encounter Additional Health Concerns Assessment Noted Time PHQ-9 Depression Total Score: 0 09/02/19 23 11:43 AM EDT documented as of this encounter Care Teams Linesperson Relationship Specialty Start Date End Date Abelino Montenegro MD [address] [place] [address] PCP - General Internal Medicine 03/10/21 documented as of this encounter
--- OUTSIDE RECORDS SUMMARY | 2025-04-18 23:30 | XMS_ITS | Encounter Summary ---
Author Organization [employer] Address [address] [facility] [address] 7t [place] [address] Care Team Providers Care Starch Treating Assistant Name Role Phone Abelino Montenegro MD Primary Care Provide r Reason for Visit * Reason Comments Med Refill Encounter Details Date Type Department Care Team ([facility] st Contact Info) Description 01/17/2024 Refill [facility]C MED & PEDS [address] [place] [address] Abelino Montenegro MD 230 [place], [place] [phone] Social History Tobacco Use Types Packs/Day Years [...] Description 06/25/2025 2:15 PM EST Office Visit [facility] MEDICINE 230 [place] [address] Abelino Montenegro MD 230 [place] [address] documented as of this encounter Visit Diagnoses Not on filedocumented in this encounter Additional Health Concerns Assessment Noted Time PHQ-9 Depression Total Score: 4 11/03/19 24 1:09 PM EDT documented as of this encounter Care Teams Starch Treating Assistant Relationship Specialty Start Date End Date Abelino Montenegro MD 230 [place] [address] PCP - General Internal Medicine 03/10/21 documented as of this encounter
--- OUTSIDE RECORDS SUMMARY | 2025-04-18 23:30 | XMS_ITS | Encounter Summary ---
Author Organization [employer] Address [address] [facility] [address] [place] [address] Care Team Providers Care Correspondence Section Supervisor Name Role Phone Abelino Montenegro MD Primary Care Provide r Reason for Visit * Reason Comments Med Refill Encounter Details Date Type Department Care Team ([facility] st Contact Info) Description 02/07/2024 Refill [facility] [address] [place] [address] Abelino Montenegro MD 230 [place], [place] [phone] Social History Tobacco Use Types Packs/Day Years [...] 2:15 PM EST Office Visit [facility] [address] [place] [address] Abelino Montenegro MD [address] [place] [address] documented as of this encounter Visit Diagnoses Not on filedocumented in this encounter Additional Health Concerns Assessment Noted Time PHQ-9 Depression Total Score: 4 11/03/19 24 1:09 PM EDT documented as of this encounter Care Teams Correspondence Section Supervisor Relationship Specialty Start Date End Date Abelino Montenegro MD 230 [place] [address] PCP - General Internal Medicine 03/10/21 documented as of this encounter
--- OUTSIDE RECORDS SUMMARY | 2025-04-18 23:30 | XMS_ITS | Encounter Summary ---
Author Organization [employer] Address [address] [facility] 7t [place] [address] Care Team Providers Care Auto Specialty Services Manager Name Role Phone Abelino Montenegro MD Primary Care Provide r Reason for Visit * Reason Comments Med Refill Encounter Details Date Type Department Care Team ([facility] st Contact Info) Description 03/20/2023 Refill [facility] MEDICINE 230 [place], [place] [phone] Abelino Montenegro MD 230 [place], [place] [phone] Acute midline low back pain without sciatica [...] Description 06/25/2025 2:15 PM EST Office Visit [facility] MEDICINE 230 [place] [address] Abelino Montenegro MD 230 [place] [address] documented as of this encounter Visit Diagnoses Diagnosis Acute midline low back pain without sciatica documented in this encounter Additional Health Concerns Assessment Noted Time PHQ-9 Depression Total Score: 0 09/02/19 23 11:43 AM EDT documented as of this encounter Care Teams Auto Specialty Services Manager Relationship Specialty Start Date End Date Abelino Montenegro MD [address] [place] [id number] PCP - General Internal Medicine 03/10/21 documented as of this encounter
--- OUTSIDE RECORDS SUMMARY | 2025-04-18 23:30 | XMS_ITS | Encounter Summary ---
Author Organization [employer] Address [address] [facility] 7t [place] [address] Care Team Providers Care Carbider Name Role Phone Abelino Montenegro MD Primary Care Provide r Reason for Visit * Reason Comments Med Refill Encounter Details Date Type Department Care Team ([facility] st Contact Info) Description 07/06/2023 Refill [facility] MEDICINE 230 [place], [place] [phone] Abelino Montenegro MD 230 [place], [place] [phone] Social History Tobacco Use Types Packs/Day Years [...] Description 06/25/2025 2:15 PM EST Office Visit [facility] MEDICINE 230 [place] [address] Abelino Montenegro MD [address] [place] [address] documented as of this encounter Visit Diagnoses Not on filedocumented in this encounter Additional Health Concerns Assessment Noted Time PHQ-9 Depression Total Score: 0 09/02/19 23 11:43 AM EDT documented as of this encounter Care Teams Carbider Relationship Specialty Start Date End Date Abelino Montenegro MD [address] [place] [address] PCP - General Internal Medicine 03/10/21 documented as of this encounter
--- OUTSIDE RECORDS SUMMARY | 2025-04-18 23:30 | XMS_ITS | Encounter Summary ---
Author Organization [employer] Address 75 [facility] 7t [place] [address] Care Team Providers Care Clinical Systems Analyst Name Role Phone Abelino Montenegro MD Primary Care Provide r Reason for Visit * Reason Comments Med Refill Encounter Details Date Type Department Care Team ([facility] st Contact Info) Description 10/25/2023 Refill [facility] MED[facility] [address] [place], [place] [phone] Abelino Montenegro MD 230 [place], [place] [phone] Type 2 diabetes mellitus without complication, without long-term current use of insulin ([facility]); Mild intermittent asthma without complication; Benign [...] Description 06/25/2025 2:15 PM EST Office Visit [facility] MED[facility] 230 [place] [address] Abelino Montenegro MD [address] [place] [address] documented as of this encounter Visit Diagnoses Diagnosis Type 2 diabetes mellitus without complication, without long-term current use of insulin (HCC) Mild intermittent asthma without complication Benign hypertension Essential hypertension, benign documented in this encounter Additional Health Concerns Assessment Noted Time PHQ-9 Depression Total Score: 0 09/02/19 23 11:43 AM EDT documented as of this encounter Care Teams Clinical Systems Analyst Relationship Specialty Start Date End Date Abelino Montenegro MD 230 [place] [address] PCP - General Internal Medicine 03/10/21 documented as of this encounter
--- OUTSIDE RECORDS SUMMARY | 2025-04-18 23:30 | XMS_ITS | Encounter Summary ---
Author Organization [employer] Address [address] [facility] [address] 7t [place] [address] Care Team Providers Care Battery Parts Assembler Name Role Phone Abelino Montenegro MD Primary Care Provide r Encounter Details Date Type Department Care Team (Late st Contact Info) Description 09/01/2023 Orders Only [facility] MEDICINE 230 [place], [place] [phone] ProviderHans MD Social History Tobacco Use Types [...] Description 06/25/2025 2:15 PM EST Office Visit [facility] MEDICINE 230 [place] [address] Abelino Montenegro MD 230 [place] [address] documented as of this encounter Procedures Procedure [...] documented as of this encounter Care Teams Battery Parts Assembler Relationship Specialty Start Date End Date Abelino Montenegro MD [address] [place] [address] PCP - General Internal Medicine 03/10/21 documented as of this encounter
--- OUTSIDE RECORDS SUMMARY | 2025-04-18 23:30 | XMS_ITS | Encounter Summary ---
Author Organization [employer] Address 75 [facility] 7t [place] [address] Care Team Providers Care Marketing Graphics Specialist Name Role Phone Abelino Montenegro MD Primary Care Provide r Reason for Visit * Reason Comments Med Refill Encounter Details Date Type Department Care Team ([facility] st Contact Info) Description 10/20/2023 Refill [facility] MEDICINE 230 [place], [place] [phone] Debbie Jaime MD 230 [place], [place] [phone] Gastroesophageal reflux disease without esophagitis Social History [...] Description 06/25/2025 2:15 PM EST Office Visit [facility] MEDICINE 230 [place] [address] Abelino Montenegro MD 230 [place] [address] documented as of this encounter Visit Diagnoses Diagnosis Gastroesophageal reflux disease without esophagitis Esophageal reflux documented in this encounter Additional Health Concerns Assessment Noted Time PHQ-9 Depression Total Score: 0 09/02/19 23 11:43 AM EDT documented as of this encounter Care Teams Marketing Graphics Specialist Relationship Specialty Start Date End Date Abelino Montenegro MD 230 [place] [address] PCP - General Internal Medicine 03/10/21 documented as of this encounter
--- OUTSIDE RECORDS SUMMARY | 2025-04-18 23:30 | XMS_ITS | Encounter Summary ---
Author Organization [employer] Address [address] [facility] [address] 7t [place] [address] Care Team Providers Care Vp Corporate Partnerships Name Role Phone Abelino Montenegro MD Primary Care Provide r Reason for Visit * Reason Comments Med Refill Encounter Details Date Type Department Care Team ([facility] st Contact Info) Description 01/18/2024 Refill [facility] MED & PEDS [address] [place] [address] Abelino Montenegro MD 230 [place], [place] [phone] Social History Tobacco Use Types Packs/Day Years [...] Office Visit [facility] MEDICINE [address] [place] [address] Abelino Montenegro MD [address] [place] [address] documented as of this encounter Visit Diagnoses Not on filedocumented in this encounter Additional Health Concerns Assessment Noted Time PHQ-9 Depression Total Score: 4 11/03/19 24 1:09 PM EDT documented as of this encounter Care Teams Vp Corporate Partnerships Relationship Specialty Start Date End Date Abelino Montenegro MD 230 [place] [address] PCP - General Internal Medicine 03/10/21 documented as of this encounter
--- OUTSIDE RECORDS SUMMARY | 2025-04-18 23:30 | XMS_ITS | Encounter Summary ---
Author Organization [employer] Address 75 [facility] 7t [place] [address] Care Team Providers Care Cooling Tower Operator Name Role Phone Abelino Montenegro MD Primary Care Provide r Reason for Visit * Reason Comments Med Refill Encounter Details Date Type Department Care Team ([facility] st Contact Info) Description 07/26/2023 Refill [facility] MEDICINE 230 [place], [place] [phone] Abelino Montenegro MD 230 [place], [place] [phone] Social History Tobacco Use Types Packs/Day Years [...] 2:15 PM EST Office Visit [facility] MEDICINE 230 [place] [address] Abelino Montenegro MD [address] [place] [address] documented as of this encounter Visit Diagnoses Not on filedocumented in this encounter Additional Health Concerns Assessment Noted Time PHQ-9 Depression Total Score: 0 09/02/19 23 11:43 AM EDT documented as of this encounter Care Teams Cooling Tower Operator Relationship Specialty Start Date End Date Abelion Montenegro MD [address] [place] [address] PCP - General Internal Medicine 03/10/21 documented as of this encounter
--- OUTSIDE RECORDS SUMMARY | 2025-04-18 23:30 | XMS_ITS | Encounter Summary ---
Author Organization [employer] Address 75 [facility] 7t [place] [address] Care Team Providers Care Food Safety Auditor Name Role Phone Abelino Montenegro MD Primary Care Provide r Reason for Visit * Reason Onset Date Comments Med Refill 03/11/2023 Encounter Details Date Type Department Care Team (Late st Contact Info) Description 03/11/2023 Telephone [facility] MEDICINE 230 [place], [place] [phone] Abelino Montenegro MD 230 [place], [place] [phone] Med Refill Social History Tobacco Use Types [...] EDT Medication was sent on 02/17/23 to [facility] for refill. * Telephone Encounter - Chauncey Whitfield - 03/11/2023 11:19 AM EDT Tc concetta Woodson at [facility] requesting a new script for pregabalin (Lyrica) 100 MG capsulee. documented in this encounter Plan of Treatment Upcoming Encounters Date Type Department Care Team (Late st Contact Info) Description 06/25/2025 2:15 PM EST Office Visit [facility] MEDICINE 230 [place] [address] Abelino Montenegro MD [address] [place] [address] documented as of this encounter Visit Diagnoses Not on filedocumented in this encounter Additional Health Concerns Assessment Noted Time PHQ-9 Depression Total Score: 0 09/02/19 11:43 AM EDT documented as of this encounter Care Teams Food Safety Auditor Relationship Specialty Start Date End Date Abelino Montenegro MD 230 [place] [address] PCP - General Internal Medicine 03/10/21 documented as of this encounter
--- OUTSIDE RECORDS SUMMARY | 2025-04-18 23:30 | XMS_ITS | Encounter Summary ---
Author Organization [employer] Address 75 [facility] 7t [place] [address] Care Team Providers Care Medical Billing Supervisor Name Role Phone Abelino Montenegro MD Primary Care Provide r Reason for Visit * Reason Onset Date Comments Med Refill 02/18/2023 Encounter Details Date Type Department Care Team (Late st Contact Info) Description 02/18/2023 Telephone [facility] MEDICINE 230 [place], [place] [phone] Abelino Montenegro MD 230 [place], [place] [phone] Med Refill Social History Tobacco Use Types [...] 50 mg tablet to be sent to [facility]/pharmacy #[id number] -[place], [place] - [address] [place] [address] documented in this encounter Plan of Treatment Upcoming Encounters Date Type Department Care Team (Late st Contact Info) Description 06/25/2025 2:15 PM EST Office Visit [facility] MEDICINE 230 [place] [address] Abelino Montenegro MD [address] [place] [address] documented as of this encounter Visit Diagnoses Not on filedocumented in this encounter Additional Health Concerns Assessment Noted Time PHQ-9 Depression Total Score: 0 09/02/19 23 11:43 AM EDT documented as of this encounter Care Teams Medical Billing Supervisor Relationship Specialty Start Date End Date Abelino Montenegro MD 230 [place] [address] PCP - General Internal Medicine 03/10/21 documented as of this encounter
--- OUTSIDE RECORDS SUMMARY | 2025-04-18 23:30 | XMS_ITS | Encounter Summary ---
Author Organization [employer] Address [address] [facility] [address] 7t [place] [address] Care Team Providers Care Director Of Conservation Name Role Phone Abelino Montenegro MD Primary Care Provide r Reason for Visit * Reason Comments Med Refill Encounter Details Date Type Department Care Team ([facility] st Contact Info) Description 12/15/2023 Refill [facility] CHC MED & PEDS [address] [place] [address] Abelino Montenegro MD 230 [place], [place] [phone] Type 2 diabetes mellitus without complication, without long-term current use of insulin ([facility]) Social History Tobacco Use Types [...] Description 06/25/2025 2:15 PM EST Office Visit [facility] MEDICINE 230 [place] [address] Abelino Montenegro MD 230 [place] [address] documented as of this encounter Visit Diagnoses Diagnosis Type 2 diabetes mellitus without complication, without long-term current use of insulin (HCC) documented in this encounter Additional Health Concerns Assessment Noted Time PHQ-9 Depression Total Score: 4 11/03/19 24 1:09 PM EDT documented as of this encounter Care Teams Director Of Conservation Relationship Specialty Start Date End Date Abelino Montenegro MD [address] [place] [address] PCP - General Internal Medicine 03/10/21 documented as of this encounter
--- OUTSIDE RECORDS SUMMARY | 2025-04-18 23:30 | XMS_ITS | Encounter Summary ---
Author Organization [employer] Address [address] [facility] [address] 7t [place] [address] Care Team Providers Care Soft Sugar Cutter Name Role Phone Abelino Montenegro MD Primary Care Provide r Reason for Visit * Reason Comments Med Refill Encounter Details Date Type Department Care Team ([facility] st Contact Info) Description 09/14/2023 Refill [facility] CHC MED & PEDS [address] [place] [address] Abelino Montenegro MD 230 [place], [place] [phone] Social History Tobacco Use Types Packs/Day Years [...] 06/25/2025 2:15 PM EST Office Visit [facility] MEDICINE [address] [place] [address] Abelino Montenegro MD [address] [place] [address] documented as of this encounter Visit Diagnoses Not on filedocumented in this encounter Additional Health Concerns Assessment Noted Time PHQ-9 Depression Total Score: 0 09/02/19 23 11:43 AM EDT documented as of this encounter Care Teams Soft Sugar Cutter Relationship Specialty Start Date End Date Abelino Montenegro MD [address] [place] [address] PCP - General Internal Medicine 03/10/21 documented as of this encounter
--- OUTSIDE RECORDS SUMMARY | 2025-04-18 23:30 | XMS_ITS | Clinical Summary ---
Author Organization [employer] Address [address] [place] [id number] Care Team Providers Care Surgical Product Sales Consultant Name Role Phone Unavailable Primary Care Provider [...] EDT) Glucose 233(H) 70 - 100 mg/dL [facility] BUN 7 7 - 20 mg/dL [facility] Creatinine 0.6 0.5 - 1.2 mg/dL [facility] BUN/Creatinine Ratio 11.7 10.0 - 20.0 [facility] Anion Gap 11 7 - 16 [facility] CO2 21.8(L) 22.0 - 30.0 mmol/L [facility] Chloride 104 96 - 106 mmol/L [facility] Sodium 137 135 - 145 mmol/L [facility] Potassium 4.3 3.5 - 5.0 mmol/L [facility] Calcium 9.1 8.8 - 10.2 mg/dL [facility] 01/14/2011 3:30 AM EDT us Shakira LEW[facility] BLOOD ORDERABLES Final Resul t [facility] [address] [place] [address] from Last 3 Months or Most Recently Relevant to Health Maintenance
--- OUTSIDE RECORDS SUMMARY | 2025-04-18 23:30 | XMS_ITS | Encounter Summary ---
Author Organization [employer] Address [address] [facility] [address] 7t [place] [address] Care Team Providers Care Airport Operations Specialist Name Role Phone Abelino Montenegro MD Primary Care Provide r Reason for Visit * Reason Comments Med Refill Encounter Details Date Type Department Care Team ([facility] st Contact Info) Description 12/26/2023 Refill [facility] CHC MED & PEDS [address] [place] [address] Abelino Montenegro MD 230 [place] [address] Type 2 diabetes mellitus without complication, without long-term current use of insulin ([facility]) Social History Tobacco Use Types Packs/Day Years [...] Description 06/25/2025 2:15 PM EST Office Visit [facility] MEDICINE 230 [place] [address] Abelino Montenegro MD 230 [place] [address] documented as of this encounter Visit Diagnoses Diagnosis Type 2 diabetes mellitus without complication, without long-term current use of insulin (HCC) documented in this encounter Additional Health Concerns Assessment Noted Time PHQ-9 Depression Total Score: 4 11/03/19 24 1:09 PM EDT documented as of this encounter Care Teams Airport Operations Specialist Relationship Specialty Start Date End Date Abelino Montenegro MD [address] [place] [phone] PCP - General Internal Medicine 03/10/21 documented as of this encounter
--- OUTSIDE RECORDS SUMMARY | 2025-04-18 23:30 | XMS_ITS | Encounter Summary ---
Author Organization [employer] Address [address] [facility] 7t [place] [address] Care Team Providers Care Tiller Worker Name Role Phone Abelino Montenegro MD Primary Care Provide r Reason for Visit * Reason Onset Date Comments Med Refill 02/18/2023 Encounter Details Date Type Department Care Team (Late st Contact Info) Description 02/18/2023 Refill [facility] MEDICINE 230 [place] [address] Abelino Montenegro MD 230 [place] [address] Type 2 diabetes mellitus without complication, with long-term current use of insulin ([facility]) Social History Tobacco Use Types Packs/Day [...] Description 06/25/2025 2:15 PM EST Office Visit [facility] MEDICINE [address] [place] [address] Abelino Montenegro MD [address] [place] [address] documented as of this encounter Visit Diagnoses Diagnosis Type 2 diabetes mellitus without complication, with long-term current use of insulin (HCC) documented in this encounter Additional Health Concerns Assessment Noted Time PHQ-9 Depression Total Score: 0 09/02/19 23 11:43 AM EDT documented as of this encounter Care Teams Tiller Worker Relationship Specialty Start Date End Date Abelino Montenegro MD [address] [place] [address] PCP - General Internal Medicine 03/10/21 documented as of this encounter
--- OUTSIDE RECORDS SUMMARY | 2025-04-18 23:30 | XMS_ITS | Encounter Summary ---
Author Organization [employer] Address [address] [facility] 7t [place] [address] Care Team Providers Care Wound Care Nurse Name Role Phone Abelino Montenegro MD Primary Care Provide r Encounter Details Date Type Department Care Team (Late Contact Info) Description 06/30/2022 Orders Only [facility] CHC MED & PEDS [address] [employer] [place], [place] [phone] Viv Barnard LPN Social History Tobacco Use [...] Description 06/25/2025 2:15 PM EST Office Visit [facility] MEDICINE 230 [place], [place] [phone] Abelino Montenegro MD 230 [place], [place] [phone] documented as of this encounter Visit Diagnoses Not on filedocumented in this encounter Additional Health Concerns Assessment Noted Time PHQ-9 Depression Total Score: 0 06/29/19 23 1:07 PM EST documented as of this encounter Care Teams Wound Care Nurse Relationship Specialty Start Date End Date Abelino Montenegro MD [address] [place] [phone] PCP - General Internal Medicine 03/10/21 documented as of this encounter
--- OUTSIDE RECORDS SUMMARY | 2025-04-18 23:30 | XMS_ITS | Encounter Summary ---
Author Organization [employer] Address 75 [facility] 7t [place] [address] Care Team Providers Care Sound Recordist Name Role Phone Abelino Montenegro MD Primary Care Provide r Reason for Visit * Reason Comments Med Refill Encounter Details Date Type Department Care Team ([facility] st Contact Info) Description 01/07/2023 Refill [facility] MEDICINE 230 [place] [address] Abelino Montenegro MD 230 [place] [address] Social History Tobacco Use Types Packs/Day Years [...] below as STAT. Telephone call placed to [facility]. Spoke to RN whostates will give to provider for review DIONY and will follow up with pt. * Telephone Encounter - Marquita Zuleta RN - 01/20/2023 12:03 PM EDT ----- Message from Abelino Whitfield MD sent at 01/19/2023 2:57 PM EDT ----- CT of Abdomen done at [facility] worrisome for gastritis or ulcer disease, mass cannot be excluded, Pleasefax report to [facility] Gastroenterology ( She is their patient ) to make sure they are aware of the CT findings. Let me know documented in this encounter Plan of Treatment Upcoming Encounters Date Type Department Care Team (Late st Contact Info) Description 06/25/2025 2:15 PM EST Office Visit [facility] MEDICINE [address] [place] [address] Abelino Montenegro MD [address] [place] [address] documented as of this encounter Visit Diagnoses Not on filedocumented in this encounter Additional Health Concerns Assessment Noted Time PHQ-9 Depression Total Score: 0 09/02/19 23 11:43 AM EDT documented as of this encounter Care Teams Sound Recordist Relationship Specialty Start Date End Date Abelino Montenegro MD [address] [place] [address] PCP - General Internal Medicine 03/10/21 documented as of this encounter
--- OUTSIDE RECORDS SUMMARY | 2025-04-18 23:30 | XMS_ITS | Patient Health Record ---
Author Organization [employer] Address [address] [place] [address] Care Team Providers Care Manager Marketing Communication Name Role Phone Adriel Whitfield MD, Abelino Primary Care Provide r Oscar Mas [phone] Reason For Referral No Information Medications Medication SIG (Take, Route, Frequency, Duration) Notes Start Date End Date Status Dicyclomine HCl 10mg capsule 1 or 2 capsules po QID prn abdominal cramps or diarrhea; Duration: 30 Active Plan Of Treatment No Information
--- OUTSIDE RECORDS SUMMARY | 2025-04-18 23:30 | XMS_ITS | Encounter Summary ---
Author Organization [employer] Address 75 [facility] 7t [place] [address] Care Team Providers Care Appraiser Boats And Marine Name Role Phone Abelino Montenegro MD Primary Care Provide r Reason for Visit * Reason Comments Med Refill Encounter Details Date Type Department Care Team (Late Contact Info) Description 12/18/2022 Refill [facility] 230 [place] [address] [facility] 230 [place], [place] [phone] Essential hypertension Social History Tobacco Use Types [...] Description 06/25/2025 2:15 PM EST Office Visit [facility] MEDICINE [address] [place] [address] Abelino Montenegro MD [address] [place], [place] [phone] documented as of this encounter Visit Diagnoses Diagnosis Essential hypertension Unspecified essential hypertension documented in this encounter Additional Health Concerns Assessment Noted Time PHQ-9 Depression Total Score: 0 09/02/19 23 11:43 AM EDT documented as of this encounter Care Teams Appraiser Boats And Marine Relationship Specialty Start Date End Date Abelino Montenegro MD 230 [place] [address] PCP - General Internal Medicine 03/10/21 documented as of this encounter
--- OUTSIDE RECORDS SUMMARY | 2025-04-18 23:30 | XMS_ITS | Encounter Summary ---
Author Organization [employer] Address 75 [facility] 7t [place] [address] Care Team Providers Care Emulsification Operator Name Role Phone Abelino Montenegro MD Primary Care Provide r Reason for Visit * Reason Comments Med Refill Encounter Details Date Type Department Care Team ([facility] st Contact Info) Description 06/17/2023 Refill [facility] MEDICINE 230 [place], [place] [phone] Abelino Montenegro MD 230 [place], [place] [phone] Social History Tobacco Use Types Packs/Day Years [...] Description 06/25/2025 2:15 PM EST Office Visit [facility] MEDICINE 230 [place] [address] Abelino Montenegro MD [address] [place] [address] documented as of this encounter Visit Diagnoses Not on filedocumented in this encounter Additional Health Concerns Assessment Noted Time PHQ-9 Depression Total Score: 0 09/02/19 23 11:43 AM EDT documented as of this encounter Care Teams Emulsification Operator Relationship Specialty Start Date End Date Abelino Montenegro MD [address] [place] [address] PCP - General Internal Medicine 03/10/21 documented as of this encounter
--- OUTSIDE RECORDS SUMMARY | 2025-04-18 23:30 | XMS_ITS | Encounter Summary ---
Author Organization [employer] Address [address] [facility] 7t [place] [address] Care Team Providers Care Director Law Enforcement Name Role Phone Abelino Montenegro MD Primary Care Provide r Encounter Details Date Type Department Care Team (Latest Contact Info) Description 04/18/2025 Travel Social History Tobacco Use Types Packs/Day [...] with others, in a hotel, in a fci, living outside on the street, on a [...] t he electric, gas, oil or water [employer] threatened to shut off services in your [...] Description 06/25/2025 2:15 PM EST Office Visit [facility] [address] [place] [address] Abelino Montenegro MD [address] [place] [address] documented as of this encounter Goals Goal Patient Goal Type Associated Problems Recent Progress Patient-Stated? Author Help patients manage their type 2 diabetes Care Plan Help patients manage their type 2 diabetes No Viv Barker DO Weekly blood pressure task Care Plan Weekly blood pressure task No Viv Barker DO Help patients manage their type 2 diabetes Care Plan Help patients manage their type 2 diabetes No Viv Barker DO Patient has chronic kidney disease Care Plan Patient has chronic kidney disease No Viv Barker DO Help patients manage their type 2 diabetes Care Plan Help patients manage their type 2 diabetes No Viv Barker DO Patient has diabetic neuropathy Care Plan Patient has diabetic neuropathy No Viv Barker DO Weekly blood pressure task Care Plan Weekly blood pressure task No Viv Barker DO Weekly blood pressure task Care Plan Weekly blood pressure task No Viv Barker DO Patient has chronic kidney disease Care Plan Patient has chronic kidney disease No Viv Barker DO Patient has chronic kidney disease Care Plan Patient has chronic kidney disease No Viv Barker DO Patient has diabetic neuropathy Care Plan Patient has diabetic neuropathy No Viv Barker DO Patient has diabetic neuropathy Care Plan Patient has diabetic neuropathy No Viv Barker DO documented as of this encounter Visit Diagnoses Not on filedocumented in this encounter Additional Health Concerns Active [...] as of this encounter Care Teams Director Law Enforcement Relationship Specialty Start Date End Date Abelino Montenegro MD [address] [place] [address] PCP - General Internal Medicine 03/10/21 documented as of this encounter
--- OUTSIDE RECORDS SUMMARY | 2025-04-18 23:30 | XMS_ITS | Encounter Summary ---
Author Organization [employer] Address [address] [facility] [address] [place] [address] Care Team Providers Care Timber Girdler Name Role Phone Abelino Montenegro MD Primary Care Provide r Reason for Visit * Reason Comments Med Refill Encounter Details Date Type Department Care Team ([facility] st Contact Info) Description 09/08/2023 Refill [facility] PEDS [address] [place] [address] Abelino Montenegro MD 230 [place], [place] [phone] Social History Tobacco Use Types Packs/Day Years [...] Description 06/25/2025 2:15 PM EST Office Visit [facility] [address] [place] [phone] Abelino Montenegro MD [address] [place] [address] documented as of this encounter Visit Diagnoses Not on filedocumented in this encounter Additional Health Concerns Assessment Noted Time PHQ-9 Depression Total Score: 0 09/02/19 23 11:43 AM EDT documented as of this encounter Care Teams Timber Girdler Relationship Specialty Start Date End Date Abelino Montenegro MD [address] [place] [address] PCP - General Internal Medicine 03/10/21 documented as of this encounter
--- OUTSIDE RECORDS SUMMARY | 2025-04-18 23:30 | XMS_ITS | Encounter Summary ---
Author Organization [employer] Address [address] [facility] [address] 7t [place] [address] Care Team Providers Care Leather Tooler Name Role Phone Abelino Montenegro MD Primary Care Provide r Reason for Visit * Reason Comments Med Refill Encounter Details Date Type Department Care Team ([facility] st Contact Info) Description 09/03/2023 Refill [facility] MED & PEDS [address] [place] [address] Abelino Montenegro MD 230 [place], [place] [phone] Social History Tobacco Use Types Packs/Day Years [...] Description 06/25/2025 2:15 PM EST Office Visit [facility] [address] [place] [address] Abelino Montenegro MD [address] [place] [address] documented as of this encounter Visit Diagnoses Not on filedocumented in this encounter Additional Health Concerns Assessment Noted Time PHQ-9 Depression Total Score: 0 09/02/19 23 11:43 AM EDT documented as of this encounter Care Teams Leather Tooler Relationship Specialty Start Date End Date Abelino Montenegro MD [address] [place] [address] PCP - General Internal Medicine 03/10/21 documented as of this encounter
--- OUTSIDE RECORDS SUMMARY | 2025-04-18 23:30 | XMS_ITS | Encounter Summary ---
Author Organization [employer] Address [address] [facility] 7t [place] [address] Care Team Providers Care Budget Report Clerk Name Role Phone Abelino Montenegro MD Primary Care Provide r Reason for Visit * Reason Comments Med Refill Encounter Details Date Type Department Care Team ([facility] st Contact Info) Description 11/24/2024 Refill [facility] [address] [place] [address] Abelino Montenegro MD 230 [place] [address] Social History Tobacco Use Types Packs/Day Years [...] with others, in a hotel, in a fdc, living outside on the street, on a [...] Description 06/25/2025 2:15 PM EST Office Visit [facility] [address] [place] [address] Abelino Montenegro MD [address] [place] [address] documented as of this encounter Visit Diagnoses Not on filedocumented in this encounter Additional Health Concerns Assessment Noted Time PHQ-9 Depression Total Score: 18 025 12:20 PM EDT documented as of this encounter Care Teams Budget Report Clerk Relationship Specialty Start Date End Date Abelino Montenegro MD [address] [place] [address] PCP - General Internal Medicine 03/10/21 documented as of this encounter
--- OUTSIDE RECORDS SUMMARY | 2025-04-18 23:30 | XMS_ITS | Encounter Summary ---
Author Organization [employer] Address [address] [facility] 7t [place] [address] Care Team Providers Care Cracker Off Name Role Phone Abelino Montenegro MD Primary Care Provide r Reason for Visit * Reason Comments Med Refill Encounter Details Date Type Department Care Team (Late st Contact Info) Description 01/01/2023 Refill [facility] [address] [place] [address] [phone] Abelino Montenegro MD 230 [place], [place] [phone] Benign hypertension Social History Tobacco Use Types [...] 2:15 PM EST Office Visit [facility] [address] [place] [address] [phone] Abelino Montenegro MD 230 [place], [place] [phone] documented as of this encounter Visit Diagnoses Diagnosis Benign hypertension Essential hypertension, benign documented in this encounter Additional Health Concerns Assessment Noted Time PHQ-9 Depression Total Score: 0 09/02/19 23 11:43 AM EDT documented as of this encounter Care Teams Cracker Off Relationship Specialty Start Date End Date Abelino Montenegro MD 230 [place] [address] PCP - General Internal Medicine 03/10/21 documented as of this encounter
--- OUTSIDE RECORDS SUMMARY | 2025-04-18 23:30 | XMS_ITS | Encounter Summary ---
Author Organization [employer] Address 75 [facility] 7t [place] [address] Care Team Providers Care Sign Language Teacher Name Role Phone Abelino Montenegro MD Primary Care Provide r Reason for Visit * Reason Onset Date Comments Med Refill 11/16/2024 Encounter Details Date Type Department Care Team (Late st Contact Info) Description 11/16/2024 Telephone [facility] [address] [place] [address] Abelino Montenegro MD [address] [place] [address] Med Refill Social History Tobacco Use Types [...] with others, in a hotel, in a half-way, living outside on the street, on a [...] 12:35 PM EDT Medication was sent to [facility] #[id number] on 10/11/24 with 2 refills. * Telephone Encounter - Gerardo Willson - 11/16/2024 12:11 PM EDT TC from pt requesting medication refill. Medications needing refill: Trulicity 1.5 MG/0.5ML solution pen-injector To be sent to: [facility]/pharmacy #[id number] - [place] - [address] [place] [address] documented in this encounter Plan of Treatment Upcoming Encounters Date Type Department Care Team (Late st Contact Info) Description 06/25/2025 2:15 PM EST Office Visit [facility] [address] [place] [address] Abelino Montenegro MD [address] [place] [address] documented as of this encounter Visit Diagnoses Not on filedocumented in this encounter Additional Health Concerns Assessment Noted Time PHQ-9 Depression Total Score: 18 025 12:20 PM EDT documented as of this encounter Care Teams Sign Language Teacher Relationship Specialty Start Date End Date Abelino Montenegro MD 230 [facility] [place] [address] PCP - General Internal Medicine 03/10/21 documented as of this encounter
--- OUTSIDE RECORDS SUMMARY | 2025-04-18 23:30 | XMS_ITS | Encounter Summary ---
Author Organization [employer] Address [address] [facility] 7t [place] [address] Care Team Providers Care Other Sports Official Name Role Phone Abelino Montenegro MD Primary Care Provide r Reason for Visit * Reason Comments Med Refill Encounter Details Date Type Department Care Team ([facility] st Contact Info) Description 03/04/2023 Refill [facility] [address] [place], [place] [phone] Abelino Montenegro MD 230 [place], [place] [phone] Social History Tobacco Use Types Packs/Day Years [...] Description 06/25/2025 2:15 PM EST Office Visit [facility] [address] [place] [address] Abelino Montenegro MD [address] [place] [address] documented as of this encounter Visit Diagnoses Not on filedocumented in this encounter Additional Health Concerns Assessment Noted Time PHQ-9 Depression Total Score: 0 09/02/19 23 11:43 AM EDT documented as of this encounter Care Teams Other Sports Official Relationship Specialty Start Date End Date Abelino Montenegro MD [address] [place] [address] PCP - General Internal Medicine 03/10/21 documented as of this encounter
--- OUTSIDE RECORDS SUMMARY | 2025-04-18 23:30 | XMS_ITS | Encounter Summary ---
Author Organization [employer] Address [address] [facility] [address] 7[address] [place] [address] Care Team Providers Care Pedicab Driver Name Role Phone Abelino Montenegro MD Primary Care Provide r Reason for Visit * Reason Comments Med Refill Encounter Details Date Type Department Care Team ([facility] st Contact Info) Description 09/17/2023 Refill [facility]EDS [address] [place] [address] Abelino Montenegro MD 230 [place], [place] [phone] Social History Tobacco Use Types Packs/Day Years [...] Description 06/25/2025 2:15 PM EST Office Visit [facility] [address] [place] [phone] Abelino Montenegro MD [address] [place] [address] documented as of this encounter Visit Diagnoses Not on filedocumented in this encounter Additional Health Concerns Assessment Noted Time PHQ-9 Depression Total Score: 0 09/02/19 23 11:43 AM EDT documented as of this encounter Care Teams Pedicab Driver Relationship Specialty Start Date End Date Abelino Montenegro MD [address] [place] [address] PCP - General Internal Medicine 03/10/21 documented as of this encounter
--- OUTSIDE RECORDS SUMMARY | 2025-04-18 23:30 | XMS_ITS | Encounter Summary ---
Author Organization [employer] Address [address] [facility] 7t [place] [address] Care Team Providers Care Custodial Manager Name Role Phone Abelino Montenegro MD Primary Care Provide r Reason for Visit * Reason Comments Med Refill Encounter Details Date Type Department Care Team (Late st Contact Info) Description 12/25/2022 Refill [facility] MED[facility]INE 230 [place], [place] [phone] Abelino Montenegro MD 230 [place], [place] [phone] Social History Tobacco Use Types Packs/Day Years [...] Description 06/25/2025 2:15 PM EST Office Visit [facility] [address] [place] [address] [phone] Abelino Montenegro MD 230 [place], [place] [phone] documented as of this encounter Visit Diagnoses Not on filedocumented in this encounter Additional Health Concerns Assessment Noted Time PHQ-9 Depression Total Score: 0 09/02/19 23 11:43 AM EDT documented as of this encounter Care Teams Custodial Manager Relationship Specialty Start Date End Date Abelino Montenegro MD 230 [place] [address] PCP - General Internal Medicine 03/10/21 documented as of this encounter
--- OUTSIDE RECORDS SUMMARY | 2025-04-18 23:30 | XMS_ITS | Encounter Summary ---
Author Organization [employer] Address [address] [facility] 7t [place] [address] Care Team Providers Care Swimming Pool Installer And Servicer Name Role Phone Abelino Montenegro MD Primary Care Provide r Encounter Details Date Type Department Care Team (Late st Contact Info) Description 06/21/2022 Orders Only [facility] MEDICINE [address] [place] [phone] Zully Hallman LPN Social History Tobacco Use [...] 2:15 PM EST Office Visit [facility]INE [address] [place] [phone] Abelino Montenegro MD [address] [place] [address] documented as of this encounter Visit Diagnoses Not on filedocumented in this encounter Care Teams Swimming Pool Installer And Servicer Relationship Specialty Start Date End Date Abelino Montenegro MD [address] [place] [phone] PCP - General Internal Medicine 03/10/21 documented as of this encounter
--- OUTSIDE RECORDS SUMMARY | 2025-04-18 23:30 | XMS_ITS | Encounter Summary ---
Author Organization [facility] Address [address] [facility] [address] [place] [address] Phone Care Team Providers Care Clicking Machine Operator Name Role Phone Abelino Maddox MD Primary Care Provide r Encounter Details Date Type Department Care Team (Late st Contact Info) Description 01/22/2025 Procedure Pass [facility] [place], [place] [phone] Social History Tobacco Use Types Packs/Day Years [...] on file Sexual Orientation Not on file documented as of this encounter Plan of Treatment Upcoming Encounters Date Type Department Care Team (Late st Contact Info) Description 07/22/2025 10:00 AM EDT Office Visit [facility] [address] [facility] 3rd Floor, [address] [place], [place] [phone] Virgil Gongora, DO [address] [facility] [address] [place] [address] [phone] documented as of this encounter Visit Diagnoses Not on filedocumented in this encounter Care Teams Clicking Machine Operator Relationship Specialty Start Date End Date Abelino Maddox MD [address] [place] [address] [address] [place] [phone] [email or web address] PCP - General Internal Medicine 01/22/25 documented as of this encounter Additional Source Comments The information contained in this document represents components of the legal health record. It is not the complete legal health record.[facility]
--- OUTSIDE RECORDS SUMMARY | 2025-04-18 23:30 | XMS_ITS | Data Portability ---
Author Organization [facility], [facility] Address [address] [place] [address] Care Team Providers Care Competency Evaluated Nurse Aide Name Role Phone HIM CCA OTHER Unavailable OTHER Assessment Encounter Date Assessment Date Assessment LastModified by Organization Details LastModified Time 09/23/2021 09/23/2021 I have reviewed and agree with the assessment and plan as documented by the chemical recovery operator. I provided real-time medical direction for this [...] discussion conducted with the use of professional certified medical technician. REQUEST THAT CARE TEAM ATTEMPT TO ESTABLISH [...] resolution. If persists, would rec derm referral. [email or web address] Not available 01/12/2024 19:09:28 01/19/2024 01/19/2024 I provided real -time medical direction via phone for this encounter, and was available for additional phone based assistance as needed. I have reviewed and agree with the Assessment and Plan as documented by the Material Mixer. We discussed the diagnostic uncertainty of home [...] to call 911- verbalized understanding of instruction Not available 01/19/2024 15:13:59 Plan of Treatment Reminders Order Date Submit Date Provider Last Modified By Organization Details Last Modified Time Details Appointments None recorded. Lab glucose, fingerstick , blood 2023 024 [email or web address] 0 [facility], [address] [place] [address], [id number] 4 23:29:05 BMP, serum or plasma 2023 024 [email or web address] 0 [facility], [address] [place] [address], [phone] 4 23:29:03 Referral None recorded. Procedures None recorded. Surgeries None recorded. Imaging None recorded. Medication Orders ketorolac 30 mg/mL injection solution 2023 024 [email or web address] 0 [facility] #[id number], [address] [place], [address], 4 23:29:03 clobetasol 0.05 % topical ointment 2023 024 [facility] #[id number], [address] [place], [address], 4 17:58:36 Patient TargetsNo targets recorded. Patient InstructionsNo instructions recorded. Reason for Referral None Reported. Results Created Date Observation Date Name Description Value Unit Range Abnormal Flag Note LastModifiedBy Organization Detail LastModifiedTime 01/19/20 24 01/19/2024 gluco se, donya rstic k, blood Blood Glucose: mg/dl 115 Not Available [facility] [address] [place] [address], [phone] 01/19/2024 15:14:35 Result Notes None recorded. Medical [...] Recorded Body temperature Heart rate Oxygen saturation Respiratory rate Systolic And Diastolic Provider Name and Address Organization Details Last Updated DateTime 2 98 [degF] 92 /min 97 % 18 /min 111/73 mm[Hg] Not Available [employer] [facility] 2 2 18:51:50 Date Recorded Heart rate Body weight Oxygen saturation Respiratory rate Body temperature Systolic And Diastolic Provider Name and Address Organization Details Last Updated DateTime 4 82 /min 39170.9 04 g 98 % 16 /min 98.2 [degF] 132/84 mm[Hg] Not Available [facility] [employer] [facility] 2 4 16:27:09 Date Recorded Body temperature Respiratory rate Body weight Heart rate Oxygen saturation Systolic And Diastolic Provider Name and Address Organization Details Last Updated DateTime 4 98 [degF] 20 /min 31588.9 04 g 92 /min 96 % 175/92 mm[Hg] Not Available [employer] 4 14:54:20 Social History None recorded. Functional [...] 1657 Yoandy Bates MD Main - [facility] [address] [place] [phone] 09/23/2021 18:51:47 01/08/2022 15:34:41 Pain in lower limb 56634349 M79.606 Cough 96422717 R05.1 Dizziness [id number] R42 [id number] MARBIN GRERE MD Main - [facility] [address] [place] [phone] 01/12/2024 16:27:03 01/12/2024 22:17:41 Acute dermatitis 09167066 L30.9 [id number] Shakira Whitmore MD Main - [facility] [address] [place] [phone] 01/19/2024 14:54:17 01/20/2024 13:26:27 Pain in bilateral legs [id number] 8679015 M79.604 M79.605 Likely osteoarthr itis given her history of sameAdvise d patient and daughter that I cannot completely rule out a DVT based on her exam, I have sent a request to her pharmacist critical care to work with the PCP to schedule [...] Member ID Wong Member ID Guarantor Name 01/12/2024 1 [facility] - DOS PRIOR TO 2022 - DUAL ELIGIBLE (MEDICARE REPLACEMENT/AD VANTAGE - HMO) Mercedes Foley [id number] Mercedes Foley 01/19/2024 1 [facility] - DOS ON OR AFTER 2022 - DUAL ELIGIBLE - LONG-TERM OPTIONS AND ONE CARE (MEDICARE REPLACEMENT/AD VANTAGE - HMO) Mercedes Foley [id number] Mercedes Foley Notes Date Note Type Note Provider Name and Address Organization Details Recorded Time 09/23/2021 text/html HPI: NKA Pt Hx of hypertension and DM, Hx of TIA now with complaints of: Pt reports dizziness, loss of appetite, ankle/foot edema, nasal congestion. Neg for Covid 09/21 .................. .................. .................. .................. .................. .................. .................. ............... Material Mixer Note: Sent to evaluate pt with poly [...] normal output. Rapid covid test negative. Consulted [facility] who recommended that pt leave legs elevated when pt is at rest and this medic assisted by placing pillow under legs. [facility] recommends pt take APAP TID while symptomatic. Pt stated to [facility] that her symptoms have been slowly improving. [facility] will assist pt with getting urgent visit with PCP, as pt would rather not go to ER. Went over red flags and no further questions or concerns at this time. .................. .................. .................. .................. .................. .................. .................. ............... Disposition: Fulfilled Yoandy Bates MD [address] [place] [address],[address], [place], [phone], [facility] 09/23/2021 18:57:08 01/12/2024 text/html HPI: Pt was [...] Diabetes Comments: Pt was prescribed prednisone on 8 for 5 days during ED visit for rash. Pt states that rash has returned on her left lower leg and foot, reports itching and redness but denies fever, blisters, bleeding, denies shortness of breath. Reviewed HPI- no further info needed.Hpavladimir OCHOA .................. .................. .................. .................. .................. .................. .................. ............... Material Mixer Note From Son Yusuf: Pt co rash [...] ............... Disposition: Fulfilled MARBIN GREER MD [address] [facility],[address], [place], [phone], SHAYLA - BRIANNA EDDY 01/12/2024 19:09:36 01/19/2024 text/html ROS as noted [...] be present to translate as Mercedes is [place]ian speaking. .................. .................. .................. .................. .................. .................. .................. ............... [facility] Nurse Triage Notes (Maday Lindsey): Chief Complaints: Pain PMH: Hypertension, Diabetes, COPD/Asthma Comments: Reviewed HPI- no further info needed.Hpatterson RNPlease review allergies w/ member/unknown. Material Mixer Organization Information for [employer] Legal Name: [employer]. Address: [address] [place] [address], Vocational Rehabilitation Counselor: Tye Okeefe MD CLIA No.: [id number] Material Mixer POC Test Results from [facility] Blood Glucose Measurement (14:40:43) Blood Glucose: 115 mg/dL iSTAT Chem8+ (15:14:18) Na: 140 mEq/L K: 3.7 mEq/L Cl: 99 mEq/L iCa: 1.16 mmol/L TCO2: 28 mmol/L Glu: 116 mg/dL BUN: 11 mg/dL Crea: 0.6 mg/dL Hct: 43 % Hb: 14.6 g/dL A .................. .................. .................. .................. .................. .................. .................. ............... Material Mixer Note From [facility]: Pt found in residence lying supine on couch legs slightly elevated with pillow, CAOX4 Namibian speaking only. Pt daughter on scene able [...] pain, pedal pulses found, no numbness noted. [facility] contacted and Providers directed to assess pt legs for DVT, no findings noted. [facility] directed providers to perform Daniel test for DVT, [facility] directing providers on how to perform. Test result negative. [facility] advised providers to alert pt of possibility of blood clot that is undetected at this time, [facility] sending note to PCP to assess pt legs with ultrasound. [facility] directed providers to give 1G tylenol PO and to draw labs assessing for kidney function. Labs drawn and provided to [facility], [facility] directing 15 mg Toradol to be administered IM for one time pain dose. Provider went over red flags with pt and directed pt to take home prescribed tylenol as directed per direction of [facility]. Providers alerted pt and daughter to call 911 and be transported to the hospital for any change in leg condition, including cold ble legs or severe localized pain in legs. Providers then left scene. [facility] Lab Orders: glucose, fingerstick, blood: Performed .................. [...] Lyrica and topical salve. Shakira Whitmore MD [address] [place] [address],[address], [place], [phone], [employer] BRIANNA 01/19/2024 23:29:46 OBGyn Episode No OBEpisode recorded.
--- OUTSIDE RECORDS SUMMARY | 2025-04-18 23:30 | XMS_ITS | Clinical Summary ---
Author Organization [employer] Address 75 [facility] 7t [place] [address] Care Team Providers Care Air Conditioning Specialist Name Role Phone Abelnio Montenegro MD Primary Care Provide r Allergies [...] TIMES A DAY 90 capsule 023 Active lidocaine (Lidoderm) 5 % patch APPLY 1 PATCH TOPICALLY LEAVE ON FOR UP TO 12 HOURS 30 patch 024 Active FreeStyle lancetsIndicati ons:Type 2 diabetes mellitus without complication, without long-term current use of insulin (HCC) 1 each by Other route every 12 (twelve) hours. 100 each 12 06/27/2 024 Active insulin pen needle (B-D ULTRAFINE III SHORT PEN) 31G X 8 mm [facility] USE DIRECTED FOUR TIMES A DAY (BULK) 100 each 11 024 Active LORazepam (Ativan) 1 MG tablet TAKE ONE TABLET ONE HOUR BEFORE THE PROCEDURE. 024 Active oxybutynin XL (Ditropan-XL) 10 MG 24 hr tablet TAKE 1 TABLET BY MOUTH EVERYDAY AT NOON Active Viberzi 75 MG tablet 024 Active Trulicity 1.5 MG/0.5ML solution pen-injector INJECT 0.5ML SUBCUTANEOUSLY ONCE WEEKLY IN THE ABDOMEN, THIGH, OR UPPER ARM; ROTATING INJECTION SITES (BULK) 2 mL 3 024 Active dextran 70-hypromellose PF (artificial tears) 0.1-0.3 % ophthalmic solutionIndicat ions:Dry eye Administer 1 drop into both eyes if needed in the morning, at noon, and at bedtime for dry eyes. 1 each 3 025 Active albuterol (2.5 MG/3ML) 0.083% nebulizer solutionIndicat ions:Mild intermittent asthma without complication INHALE 1 VIAL VIA NEBULIZER FRANCINE VECES AL FREDIS 90 mL 3 025 Active calamine lotion APPLY TOPICALLY IF [...] without long-term current use of insulin (HCC) TOME 1 TABLETA POR VIA ORAL DOS VECES AL FREDIS 180 tablet 1 025 Active glucose blood (FREESTYLE LITE) test stripIndication s:Type 2 diabetes mellitus without complication, without long-term current use of insulin (HCC),Mild intermittent asthma without complication USE TO TEST BLOOD SUGAR THREE TO FOUR TIMES A DAY (BULK) 100 strip 11 025 Active Synjardy 12.5-1000 MGIndications:T ype 2 diabetes mellitus without complication, with long-term current use of insulin ([facility]) TOME 1 TABLETA POR VIA ORAL DOS VECES AL FREDIS 180 tablet 3 025 Active Dulaglutide (Trulicity) 1.5 MG/0.5ML solution auto-injector Inject 1.5 mg under the skin 1 (one) time per week. 6 mL 2 025 Active amLODIPine (Norvasc) 5 MG tabletIndicatio ns:Essential hypertension TOME 1 TABLETA POR VIA ORAL TODOS LOS BOYD 90 tablet 1 025 Active pregabalin (Lyrica) 100 MG capsule TAKE ONE CAPSULE BY MOUTH TWICE A DAY 60 capsule 025 Active Diclofenac Sodium 1 % gelIndications: Acute midline low back pain without sciatica Apply to back twice daily 100 g 1 025 Active pantoprazole (ProtoNix) 40 MG EC tabletIndicatio ns:Gastroesopha geal reflux disease without esophagitis TOME 1 TABLETA POR VIA ORAL TODOS LOS BOYD 90 tablet 025 Active Alcohol Swabs 70 % pads USE FOUR TIMES A DAY 100 each 5 025 Active albuterol 108 (90 Base) MCG/ACT inhalerIndicati ons:Mild intermittent asthma without complication INHALE 2 PUFFS BY MOUTH FOUR TIMES A DAY 18 g 1 025 Active fluticasone (Flovent) 220 MCG/ACT inhalerIndicati ons:Mild intermittent asthma without complication INHALE 1 PUFF IN THE MORNING AND AT BEDTIME 12 g 11 025 Active aspirin (Aspirin Low Dose) 81 MG EC tabletIndicatio ns:Type 2 diabetes mellitus without complication, without long-term current use of insulin ([facility]) TAKE ONE TABLET BY MOUTH EVERY DAY 90 tablet 025 Active diphenoxylate-a tropine (Lomotil) 2.5-0.025 MG tabletIndicatio ns:Diarrhea, unspecified type TAKE 1 TABLET BY MOUTH IF NEEDED IN THE MORNING AND AT BEDTIME FOR DIARRHEA. 10 tablet Active acetaminophen (Tylenol 8 Hour) 650 MG ER tablet TAKE ONE TABLET BY MOUTH EVERY 8 HOURS NEEDED FOR PAIN 60 tablet 1 Active meclizine (Antivert) 25 MG tablet TAKE 1 TABLET BY MOUTH 2 TIMES EVERY DAY NEEDED FOR DIZZINESS 30 tablet Active montelukast (Singulair) 10 MG tabletIndicatio ns:Seasonal allergies TOME 1 TABLETA POR VIA ORAL TODOS LOS BOYD 90 tablet Active sulfamethoxazol e-trimethoprim (Bactrim DS) 800-160 MG tablet Take 1 tablet by mouth 2 times daily for 3 days. 6 tablet 025 2024 Active meclizine (Antivert) 25 MG tablet TAKE 1 TABLET BY ORAL ROUTE 2 TIMES EVERY DAY NEEDED FOR DIZZINESS 30 tablet 024 2024 Discontinued acetaminophen (Tylenol 8 Hour) 650 MG ER tablet TAKE ONE TABLET BY MOUTH EVERY 8 HOURS NEEDED FOR PAIN (VIAL) 60 tablet 1 025 2024 Discontinued aspirin (Aspirin Low Dose) 81 MG EC tabletIndicatio ns:Type 2 diabetes mellitus without complication, without long-term current use of insulin (HCC) TAKE ONE TABLET BY MOUTH EVERY DAY 90 tablet 025 2024 Discontinued montelukast (Singulair) 10 MG tabletIndicatio ns:Seasonal allergies TAKE ONE TABLET BY MOUTH EVERY DAY 90 tablet 025 2024 Discontinued diphenoxylate-a tropine (Lomotil) 2.5-0.025 MG tabletIndicatio ns:Diarrhea, unspecified type TAKE 1 TABLET BY MOUTH IF NEEDED IN THE MORNING AND AT BEDTIME FOR DIARRHEA. 10 tablet 025 2024 Discontinued Active Problems Problem Noted Date [...] the moment. She will also call her medicare contact specialist Pt under the care of medicare contact specialist already taking antihistaminics Obesity (BMI 30-39.9) [...] and benadryl PRN px today -refer to liner man to clarify possible triggers -will hold for [...] X-rays lumbar spine and hips that showed: Znvy-gz-gywsoumd degenerative changes in the bilateral hips. 2. [...] X-rays lumbar spine and hips that showed: Srbz-gq-zswarvcv degenerative changes in the bilateral hips. 2. 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 2. [...] X-rays lumbar spine and hips that showed: Xger-ao-udwosvlx degenerative changes in the bilateral hips. 2. [...] of zero, Opthalmologic done at [facility]. Microalbumin 03/11/2021 was 2.6, currently on ASA [...] of zero, Opthalmologic done at [facility] 2 months ago. Microalbumin 03/11/2021 was 2.6, [...] Encounters Date Type Department Care Team Description 04/18/2025 11:20 AM EST Office Visit [facility] [address] [place] [phone] Viv Barker DO Acute UTI 04/18/2025 Travel 03/28/2025 Refill [facility] [address] [place] [address] Debbie Tee MD Seasonal allergies 03/27/2025 Refill [facility] [address] [place] [address] Abelino Montenegro MD Diarrhea, unspecified type 03/25/2025 Refill [facility] [address] [place] [address] Debbie Tee MD Type 2 diabetes mellitus without complication, without long-term current use of insulin ([facility]) 01/28/2025 Telephone [facility] [address] [place] [address] Abelino Montenegro MD Appointment Request; Call Back Request 01/22/2025 Refill [facility] [address] [place] [address] Abelino Montenegro MD Mild intermittent asthma without complication; Diarrhea, unspecified type 01/22/2025 Refill [facility] [address] [place] [address] Shawna Browning ANP Diarrhea, unspecified type from Last 3 Months Immunizations Immunization Administration [...] Mass Index 30.18 04/18/2025 11:20 AM EST Plan of Treatment Upcoming Encounters Date Type Department Care Team (Late st Contact Info) Description 06/25/2025 2:15 PM EST Office Visit [facility] [address] [place] [address] Abelino Montenegro MD [address] [place] [address] Health Maintenance Due Date Last Done Comments CT Colonography 1950 FIT 1950 Sigmoidoscopy 1950 Diabetes: Foot Exam 1961 Eye Exam 1961 Hepatitis A Vaccines (1 of 2 - Risk 2-dose series) 1970 RSV Patients and Patients Aged 60 years or older (1 - Risk 50-74 years 1-dose series) 2001 Hepatitis B Vaccines (1 of 3 - Risk 3-dose series) 2011 FOBT 07/26/2024 07/27/2023, 05/21/2019 SDOH Screening 11/02/2024 11/03/2023 COVID-19 Vaccine ( season) 2025 02/14/2024, 02/22/2023, 10/27/2021, Additional history exists Influenza Vaccine (#1) 2025 , 01/13/2023, 02/26/2022, Additional history exists Depression Monitoring 03/14/2025 09/11/2024, 025 Alcohol/Substance Use Screening 05/15/2025 05/15/2024 Diabetes: Hemoglobin A1C 06/13/2025 025, 09/11/2024, 05/15/2024, Additional history exists Mammogram 07/30/2025 07/30/2024, 07/07, 07/15/2022, Additional history exists Diabetes: Urine Protein Screening 12/13/2025 12/13/2024, 03/11/2021 Lipid Panel 12/13/2025 12/13/2024, 12/0 10/2021, 03/11/2021 Tobacco Screening 04/18/2026 04/18/2025 FIT DNA/Cologuard 07/26/2026 07/27/2023, 05/21/2019 DTaP/Tdap/Td Vaccines [...] on patient's age to complete this topic Goals Goal Patient Goal Type Associated Problems [...] has diabetic neuropathy No Viv Barker DO Procedures Procedure Name Priority Date/Time Associated Diagnosis Comments POCT URINALYSIS DIPSTICK Routine 04/18/2025 11:42 AM EST Acute UTI ALBUMIN, RANDOM URINE W/CREATININE Routine 12/13/2024 8:31 AM EDT Type 2 diabetes mellitus without complication, without long-term current use of insulin (CMS/[facility]) LIPID PANEL, STANDARD Routine 12/13/2024 8:31 AM EDT Hypercholesterolem ia POCT GLYCATED HEMOGLOBIN, TOTAL Routine 12/11/2024 1:10 [...] Relevant to Health Maintenance Results * (ABNORMAL) POCT Urinalysis (04/18/2025 11:42 [...] Media Lot # [id number] Lot# Expiration Date 86 Urine (Urine, Random) 04/18/2025 11:42 AM EST Viv Barker DO POINT OF CARE TEST ENTER/ROSANGELA T ORDERABLES Final Result * Albumin, Random Urine W/Creatinine (12/13/2024 8:31 AM EDT) Creatinine, Urine 77.42 mg/dL [facility] Microalbumin Urine 16.0 mg/L [facility] Microalbum Creatinine Ratio Ur 20.6 <30 ug/mg cr [facility] Comment:Albumin/Creatinine R atio Reference Ranges: Normal: < 30 ug/mg creatinine Microalbuminuria: 30 - 300 ug/mg creatinineClinical Albuminuria: > 300 ug/mg creatinine Urine (Urine, Random) 12/13/2024 8:31 AM EDT 12/13/2024 11:28 AM EDT Abelino Whitfield MD LAB URINE ORDERABLES Final Result Performing Organization Address [facility] Co de Phone Number [facility] [address] [place] [address] [phone] * Lipid Panel, Standard (12/13/2024 8:31 AM EDT) Triglycerides 95 <150 mg/dL [facility] Comment:Desirable Triglyceri de: less than 150 mg/dLBorderline High Triglyceride 150-199 mg/dLHigh Triglyceride: 200-499 mg/dLVery High Triglyceride: greater than or equal to 5OO mg/dL Cholesterol 146 <200 mg/dL [facility] Comment:Desirable Cholestero l: less than 200 mg/dLBorderline High Cholesterol: 200-239 mg/dLHigh Cholesterol: greater than 239 mg/dL LDL Cholesterol Calculated 73 <100 mg/dL [facility] Comment:Desirable LDL: less than 100 mg/dLNear Optimal/Above Optimal LDL: 110- 129 mg/dLBorderline High LDL: 130-159 mg/dLHigh LDL: 160-189 mg/dLVery High LDL: greater than or equal to 190 mg/dL HDL Cholesterol 54 >40 mg/dL [facility] Comment:Desirable HDL: great er than 40 mg/dL Note: This HDL assay may give artificially low results in patients with liver disease. Blood Venous blood specimen / Unknown 12/13/2024 8:31 AM EDT 12/13/2024 11:29 AM EDT Abelino Whitfield MD LAB BLOOD ORDERABLES Final Result Performing Organization Address [facility] Co de Phone Number [facility] [address] [place] [phone] [phone] * (ABNORMAL) POCT HGB A1C (12/11/2024 1:10 PM EDT) Hemoglobin A1C 6.4(A) 4.0 - 5.7 % QC Media Lot # [id number] Lot# Expiration Date [id number] Blood 12/11/2024 1:10 PM EDT Abelino Whitfield MD POINT OF CARE TEST EN TER/EDIT ORDERABLES Final Result * BI Mammogram Screening Tomosynthesis Bilateral (07/30/2024 10:30 AM EDT) Anatomical Region Laterality Modality Breast Bilateral Mammography 07/30/2024 10:3 0 AM EDT Narrative 08/05/2024 8:20 PM EDT [facility] [address] [place] [address] Mammography Report Signed Patient: Mercedes Foley MR#: [id number] : 1950 Acct:[id number] Age/Sex: 74 / F ADM Date: 07/30/24 Loc: SAMANTHA Attending Dr: Abelino Maddox MD Ordering Physician: Abelino Maddox MD Resu lts: 1Negative Date of Service: 07/30/24 Follow Up: 1 Year From [facility] Mammogram Procedure(s): MM tomosynthesis screening BI Accession Number(s): [id number] cc: Abelino Maddox MD EXAMINATION: MM SCREENING [...] OV> 08/05/242016 DD/ 1030 TD/TT: 07/30/24 1042 [employer]: Procedure Note Donotuseinterpreter, Image - 08/05/2024 [facility] [address] [place] [address] Mammography Report Signed Patient: Ronnell Foley#: [id number] : 1950cct:[id number] Age/Sex: 74 / FADM Date: 07/30/24 Loc: HOVANESSAO Attending Dr: Abelino Maddox MD Ordering Physician: Abelino Maddox MDResu lts: 1Negative Date of Service: 07/30/24Follow Up: 1 Year From Orig inal Mammogram Procedure(s): MM tomosynthesis screening BI Accession Number(s): [id number] cc: Abelino Maddox MD EXAMINATION: MM SCREENING [...] OV> 08/05/242016 DD/ 1030 TD/TT: 07/30/24 1042 [employer]: Abelino Whitfield MD IMG BI PROCEDURES Rosangela jayashree Result - Final * Hepatitis C Antibody with Reflex to HCV, RNA, Quantitative, Real-Time PCR (02/21/2024 8:25 AM EDT) Hepatitis C Antibody Nonreactive Nonreactive [facility] Comment:Antibodies to HCV no t detected; does not exclude early acuteHCV infection. Blood Venous blood specimen / Unknown 02/21/2024 8:25 AM EDT 02/21/2024 11:11 AM EDT Abelino Whitfield MD LAB BLOOD ORDERABLES Final Result Performing Organization Address City/State/[facility] Co de Phone Number [facility] [address] [place] [phone] * Hm Colonoscopy (09/03/2021 8:02 AM EDT) Historical Provider HEALTH MAINTENANCE Final Result from Last 3 Months or Most Recently Relevant to Health Maintenance Additional Health Concerns Active Problems Noted Date [...] neuropathy 04/18/2025 Patient has diabetic neuropathy 04/18/2025 Insurance [facility] SKILLED NURSING OPTIONS (HMO D-SNP) JOSHUA JAIN [id number] Care Teams Air Conditioning Specialist Relationship Specialty Start Date End Date Abelino Montenegro MD [address] [place] [phone] PCP - General Internal Medicine 03/10/21
--- OUTSIDE RECORDS SUMMARY | 2025-04-18 23:30 | XMS_ITS | Encounter Summary ---
Author Organization [employer] Address [address] [facility] 7t [place] [address] Care Team Providers Care Senior Hydrogeologist Name Role Phone Abelino Montenegro MD Primary Care Provide r Reason for Visit * Reason Comments Med Refill Encounter Details Date Type Department Care Team ([facility] st Contact Info) Description 11/16/2024 Refill [facility] [address] [place] [address] Abelino Montenegro MD [address] [place] [address] Social History Tobacco Use Types Packs/Day Years [...] Description 06/25/2025 2:15 PM EST Office Visit [facility] [address] [place] [address] Abelino Montenegro MD [address] [place] [address] documented as of this encounter Visit Diagnoses Not on filedocumented in this encounter Additional Health Concerns Assessment Noted Time PHQ-9 Depression Total Score: 18 025 12:20 PM EDT documented as of this encounter Care Teams Senior Hydrogeologist Relationship Specialty Start Date End Date Abelino Montenegro MD [address] [place] [address] PCP - General Internal Medicine 03/10/21 documented as of this encounter
--- OUTSIDE RECORDS SUMMARY | 2025-04-18 23:30 | XMS_ITS | Encounter Summary ---
Author Organization [employer] Address [address] [facility] 7t [place] [address] Care Team Providers Care Envelope Sealing Machine Operator Name Role Phone Abelino Montenegro MD Primary Care Provide r Encounter Details Date Type Department Care Team (Late st Contact Info) Description 06/14/2022 Orders Only [facility] [address] [place] [address] Viv Barnard LPN Social History Tobacco Use [...] [facility] [address] [place] [address] Abelino Montenegro MD [address] [place] [address] documented as of this encounter Visit Diagnoses Not on filedocumented in this encounter Care Teams Envelope Sealing Machine Operator Relationship Specialty Start Date End Date Abelino Montenegro MD [address] [place] [phone] PCP - General Internal Medicine 03/10/21 documented as of this encounter
--- OUTSIDE RECORDS SUMMARY | 2025-04-18 23:30 | XMS_ITS | Encounter Summary ---
Author Organization [employer] Address [address] [facility] [address] [place] [address] Care Team Providers Care Service Trainer Name Role Phone Abelino Montenegro MD Primary Care Provide r Reason for Visit * Reason Comments Med Refill Encounter Details Date Type Department Care Team ([facility] st Contact Info) Description 01/25/2024 Refill [facility] [address] [place] [address] Abelino Montenegro MD [address] [place], [place] [phone] Social History Tobacco Use Types Packs/Day Years [...] Description 06/25/2025 2:15 PM EST Office Visit [facility] [address] [place] [address] Abelino Montenegro MD [address] [place] [address] documented as of this encounter Visit Diagnoses Not on filedocumented in this encounter Additional Health Concerns Assessment Noted Time PHQ-9 Depression Total Score: 4 11/03/19 24 1:09 PM EDT documented as of this encounter Care Teams Service Trainer Relationship Specialty Start Date End Date Abelino Montenegro MD [address] [place] [address] PCP - General Internal Medicine 03/10/21 documented as of this encounter
--- OUTSIDE RECORDS SUMMARY | 2025-04-18 23:31 | XMS_ITS | Encounter Summary ---
Author Organization [employer] Address 75 [facility] 7t [place] [address] Care Team Providers Care Jumpbasting Machine Operator Name Role Phone Abelino Montenegro MD Primary Care Provide r Reason for Visit * Reason Comments Med Refill Encounter Details Date Type Department Care Team (Late Contact Info) Description 10/08/2022 Refill [facility] [address] [place] [address] Abelino Montenegro MD [address] [place] [address] Social History Tobacco Use Types Packs/Day Years [...] Description 06/25/2025 2:15 PM EST Office Visit [facility] [address] [place] [address] Abelino Montenegro MD [address] [place] [address] documented as of this encounter Visit Diagnoses Not on filedocumented in this encounter Additional Health Concerns Assessment Noted Time PHQ-9 Depression Total Score: 0 09/02/19 23 11:43 AM EDT documented as of this encounter Care Teams Jumpbasting Machine Operator Relationship Specialty Start Date End Date Abelino Montenegro MD [address] [place] [address] PCP - General Internal Medicine 03/10/21 documented as of this encounter
--- OUTSIDE RECORDS SUMMARY | 2025-04-18 23:31 | XMS_ITS | Encounter Summary ---
Author Organization [employer] Address [address] [facility] [address]t [place] [address] Care Team Providers Care Statement Clerks Manager Name Role Phone Abelino Montenegro MD Primary Care Provide r Reason for Visit * Reason Comments Med Refill Encounter Details Date Type Department Care Team ([facility] st Contact Info) Description 11/18/2023 Refill [facility] [address] [place], [place] [phone] Abelino Montenegro MD [address] [place], [place] [phone] Benign hypertension; Type 2 diabetes mellitus without complication, without long-term current use of insulin ([facility]); Mild intermittent asthma without complication Social [...] Description 06/25/2025 2:15 PM EST Office Visit [facility] [address] [place] [address] Abelino Montenegro MD [address] [place] [address] documented as of this encounter Visit Diagnoses Diagnosis Benign hypertension Essential hypertension, benign Type 2 diabetes mellitus without complication, without long-term current use of insulin (HCC) Mild intermittent asthma without complication documented in this encounter Additional Health Concerns Assessment Noted Time PHQ-9 Depression Total Score: 4 11/03/19 24 1:09 PM EDT documented as of this encounter Care Teams Statement Clerks Manager Relationship Specialty Start Date End Date Abelino Montenegro MD [address] [place] [address] PCP - General Internal Medicine 03/10/21 documented as of this encounter
--- OUTSIDE RECORDS SUMMARY | 2025-04-18 23:31 | XMS_ITS | Encounter Summary ---
Author Organization [employer] Address [address] [facility] [address] [place] [address] Care Team Providers Care Residential Housekeeper Name Role Phone Abelino Montenegro MD Primary Care Provide r Encounter Details Date Type Department Care Team (Late Contact Info) Description 09/15/2022 Abstract [facility] [address] [place] [phone] Abelino Montenegro MD [address] [place] [phone] Social History Tobacco Use Types Packs/Day Years [...] EST Office Visit [facility] [address] [place] [address] Abelino Montenegro MD [address] [place] [address] documented as of this encounter Visit Diagnoses Not on filedocumented in this encounter Additional Health Concerns Assessment Noted Time PHQ-9 Depression Total Score: 0 09/02/19 23 11:43 AM EDT documented as of this encounter Care Teams Residential Housekeeper Relationship Specialty Start Date End Date Abelino Montenegro MD [address] [place] [address] PCP - General Internal Medicine 03/10/21 documented as of this encounter
--- OUTSIDE RECORDS SUMMARY | 2025-04-18 23:31 | XMS_ITS | Encounter Summary ---
Author Organization [employer] Address [address] [facility] 7t [place] [address] Care Team Providers Care Building Architect Name Role Phone Abelino Montenegro MD Primary Care Provide r Reason for Visit * Reason Comments Med Refill Encounter Details Date Type Department Care Team ([facility] st Contact Info) Description 11/01/[address] [facility] MEDICINE [address] [place], [place] [phone] Abelino Montenegro MD [address] [place], [place] [phone] Mild intermittent asthma without complication; Type 2 diabetes mellitus without complication, without long-term current use of insulin ([facility]); Benign hypertension Social History Tobacco Use Types [...] 1:09 PM EDT John Quevedo MA * How difficult have these problems made it for you to do your work, take care of things at home, or get along with other people? Answer Date of Assessment Author Not difficult at all 11/03/2023 1:09 PM EDT Robyn Bowman MA * Over the past 2 weeks, [...] much Not at all 11/03/2023 1:09 PM EDT Robyn Garsia MA Feeling tired or having [...] PM EST Office Visit [facility] MEDICINE [address] [place] [address] Abelino Montenegro MD [address] [place] [address] documented as of this encounter Visit Diagnoses Diagnosis Mild intermittent asthma without complication Type 2 diabetes mellitus without complication, without long-term current use of insulin (HCC) Benign hypertension Essential hypertension, benign documented in this encounter Additional Health Concerns Assessment Noted Time PHQ-9 Depression Total Score: 0 09/02/19 23 11:43 AM EDT documented as of this encounter Care Teams Building Architect Relationship Specialty Start Date End Date Abelino Montenegro MD [address] [place] [address] PCP - General Internal Medicine 03/10/21 documented as of this encounter
--- OUTSIDE RECORDS SUMMARY | 2025-04-18 23:31 | XMS_ITS | Encounter Summary ---
Author Organization [employer] Address [address] [facility] 7t [place] [address] Care Team Providers Care Galvanizer Name Role Phone Abelino Montenegro MD Primary Care Provide r Reason for Visit * Reason Comments Med Refill Encounter Details Date Type Department Care Team ([facility] st Contact Info) Description 10/25/2023 Refill [facility] MEDICINE [address] [place], [place] [phone] Debbie Jaime MD [address] [place], [place] [phone] Gastroesophageal reflux disease without esophagitis Social History [...] EST Office Visit [facility] MEDICINE [address] [place] [address] Abelino Montenegro MD [address] [place] [address] documented as of this encounter Visit Diagnoses Diagnosis Gastroesophageal reflux disease without esophagitis Esophageal reflux documented in this encounter Additional Health Concerns Assessment Noted Time PHQ-9 Depression Total Score: 0 09/02/19 23 11:43 AM EDT documented as of this encounter Care Teams Galvanizer Relationship Specialty Start Date End Date Abelino Montenegro MD [address] [place] [address] PCP - General Internal Medicine 03/10/21 documented as of this encounter
--- OUTSIDE RECORDS SUMMARY | 2025-04-18 23:31 | XMS_ITS | Encounter Summary ---
Author Organization [employer] Address [address] [facility] 7t [place] [address] Care Team Providers Care Senior Lead Software Engineer Name Role Phone Abelino Montenegro MD Primary Care Provide r Encounter Details Date Type Department Care Team (Late Contact Info) Description 09/16/2022 Abstract [facility] MEDICINE [address] [place] [id number] Abelino Montenegro MD [address] [place] [address] [phone] Social History Tobacco Use Types Packs/Day Years [...] Office Visit [facility] MEDICINE [address] [place] [address] Abelino Montenegro MD [address] [place] [address] documented as of this encounter Visit Diagnoses Not on filedocumented in this encounter Additional Health Concerns Assessment Noted Time PHQ-9 Depression Total Score: 0 09/02/19 23 11:43 AM EDT documented as of this encounter Care Teams Senior Lead Software Engineer Relationship Specialty Start Date End Date Abelino Montenegro MD [address] [place] [address] PCP - General Internal Medicine 03/10/21 documented as of this encounter
--- OUTSIDE RECORDS SUMMARY | 2025-04-18 23:31 | XMS_ITS | Encounter Summary ---
Author Organization [employer] Address [address] [facility] 7t [place] [address] Care Team Providers Care Afterschool Name Role Phone Abelino Montenegro MD Primary Care Provide r Reason for Visit * Reason Comments Med Refill Encounter Details Date Type Department Care Team ([facility] st Contact Info) Description 11/11/[address] [facility] MEDICINE [address] [place], [place] [phone] Abelino Montenegro MD [address] [place], [place] [phone] Type 2 diabetes mellitus without complication, without long-term current use of insulin ([facility]); Mild intermittent asthma without complication; [...] 2:15 PM EST Office Visit [facility] MEDICINE [address] [place] [address] Abelino Montenegro MD [address] [place] [address] documented as of this encounter Visit Diagnoses Diagnosis Type 2 diabetes mellitus without complication, without long-term current use of insulin (HCC) Mild intermittent asthma without complication Benign hypertension Essential hypertension, benign documented in this encounter Additional Health Concerns Assessment Noted Time PHQ-9 Depression Total Score: 4 11/03/19 24 1:09 PM EDT documented as of this encounter Care Teams Afterschool Relationship Specialty Start Date End Date Abelino Montenegro MD [address] [place] [address] PCP - General Internal Medicine 03/10/21 documented as of this encounter
--- OUTSIDE RECORDS SUMMARY | 2025-04-18 23:31 | XMS_ITS | Encounter Summary ---
Author Organization [employer] Address [address] [facility] 7t [place] [address] Care Team Providers Care Security Services Manager Name Role Phone Abelino Montenegro MD Primary Care Provide r Reason for Visit * Reason Comments Med Refill Encounter Details Date Type Department Care Team ([facility] st Contact Info) Description 11/03/2023 Refill [facility] MEDICINE [address] [place], [place] [phone] Debbie Jaime MD [address] [place], [place] [phone] Gastroesophageal reflux disease without esophagitis Social History [...] 2:15 PM EST Office Visit [facility] MEDICINE [address] [place] [address] Abelino Montenegro MD [address] [place] [address] documented as of this encounter Visit Diagnoses Diagnosis Gastroesophageal reflux disease without esophagitis Esophageal reflux documented in this encounter Additional Health Concerns Assessment Noted Time PHQ-9 Depression Total Score: 4 11/03/19 24 1:09 PM EDT documented as of this encounter Care Teams Security Services Manager Relationship Specialty Start Date End Date Abelino Montenegro MD [address] [place] [address] PCP - General Internal Medicine 03/10/21 documented as of this encounter
--- OUTSIDE RECORDS SUMMARY | 2025-04-18 23:31 | XMS_ITS | Encounter Summary ---
Author Organization [employer] Address [address] [facility] 7t [place] [address] Care Team Providers Care Commercial Project Manager Name Role Phone Abelino Montenegro MD Primary Care Provide r Reason for Visit * Reason Comments Med Refill Encounter Details Date Type Department Care Team ([facility] st Contact Info) Description 12/14/[address] [facility] [address] [place] [address] Abelino Montenegro MD [address] [place], [place] [phone] Seasonal allergies; Essential hypertension Social History Tobacco [...] PM EST Office Visit [facility] MEDICINE [address] [place] [address] Abelino Montenegro MD [address] [place] [address] documented as of this encounter Visit Diagnoses Diagnosis Seasonal allergies Allergic rhinitis, cause unspecified Essential hypertension Unspecified essential hypertension documented in this encounter Additional Health Concerns Assessment Noted Time PHQ-9 Depression Total Score: 4 11/03/19 24 1:09 PM EDT documented as of this encounter Care Teams Commercial Project Manager Relationship Specialty Start Date End Date Abelino Montenegro MD [address] [place] [address] PCP - General Internal Medicine 03/10/21 documented as of this encounter
--- OUTSIDE RECORDS SUMMARY | 2025-04-18 23:31 | XMS_ITS | Encounter Summary ---
Author Organization [employer] Address [address] [facility] 7t [place] [address] Care Team Providers Care Cattle Sorter Name Role Phone Abelino Montenegro MD Primary Care Provide r Reason for Visit * Reason Comments Med Refill Encounter Details Date Type Department Care Team (Late Contact Info) Description 09/14/[address] [facility] MEDICINE [address] [place] [address] Kimberlyn Phillips MD [address] [place] [phone] Gastroesophageal reflux disease without esophagitis Social History [...] [facility] [address] [place] [address] Abelino Montenegro MD [address] [place], [place] [phone] documented as of this encounter Visit Diagnoses Diagnosis Gastroesophageal reflux disease without esophagitis Esophageal reflux documented in this encounter Additional Health Concerns Assessment Noted Time PHQ-9 Depression Total Score: 0 09/02/19 23 11:43 AM EDT documented as of this encounter Care Teams Cattle Sorter Relationship Specialty Start Date End Date Abelino Montenegro MD [address] [place] [address] PCP - General Internal Medicine 03/10/21 documented as of this encounter
== END 2025-04-18 18:06 ==
LOC: HO.HHCLNP 18:05
PROVIDERS: Visit Provider Family Medicine
DX: N39.0 Urinary tract infection, site not specified (principal)
CPT/HCPCS: 87086